=== PATIENT | female | born 1980 | race Caucasian/White ===

== ENCOUNTER 2020-06-29 16:50 | Emergency (ER) | payer OTHER, MEDICARE, MEDICAID, SELFPAY ==
[2020-06-29 17:06] VITALS: BP 157/100; PULSE 120; RESP 16; TEMP 36.7; O2SAT 99; BMI 31.8
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
== END 2020-06-29 18:12 | disposition home or self-care (01) ==
PROVIDERS: Emergency Provider Internal Medicine; PCP Internal Medicine
DX: S40.021A Contusion of right upper arm, initial encounter (principal); S70.12XA Contusion of left thigh, initial encounter; V49.49XA Driver injured in collision with other motor vehicles in traffic accident, initial encounter; Y93.89 Activity, other specified; Y92.411 Interstate highway as the place of occurrence of the external cause; Y99.9 Unspecified external cause status
CPT/HCPCS: 99282; 99284

== ENCOUNTER 2022-02-10 11:30 | Outpatient (RCR) | payer MEDICARE, MEDICAID, SELFPAY ==
[2022-01-18 12:27] VITALS: BP 110/82; PULSE 80
[2022-01-18 12:28] VITALS: BMI 32.8
--- NOTE | 2022-01-18 13:12 | P.HPPSP_ITS ---
HPI Date of Service: 01/18/22 Chief Complaint: bipolar,PTSD Sources of Information: patient interviewed, chart reviewed and crisis/core team assessment reviewed HPI Narrative: Patient is a 41 year old female who carries diagnosis of Bipolar disorder and PTSD who presents to [facility] for worsening depression and suicidal ideation. She reports that symptoms started to worsen over the last two years and within the last month thoughts of not being alive have increased. She denies having a plan or intent to end her life, and is bothered by these recurrent thoughts. She has completed [facility] in the past and has found it supportive and helpful. She identifies the pandemic as adding to depression due to limited opportunities for support. Several losses over the last year. She reports irritability, tearfulness, decreased energy/motivation and anhedonia as main symptoms. She is engaged with providers --and is seen weekly for therapy No recent changes to medication regimen and does not wish to change medications October had labs completed including TSH and lithium level. Last appt with psychiatric provider was one week ago. Reviewed other medications and she reports that Humira was started withing the last year and she discontinued her oral contraceptive a month ago I just didn't like it . Unclear what OC she was taking, denies any changed in mood (worse or improved) since stopping it. 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 working at, but has found it increasingly difficult to be present/fulfill her obligations Patient identifies goals for partial admission as get grounded and seek support Medical Evaluation Reviewed: No (lab results pending) [facility] Medical History (Updated 01/18/22 @ 20:21 by Cornelia Goodwin CNP) Asthma Bipolar 2 disorder History of skin cancer Hypothyroidism Psoriasis Diagnostics Vital Signs (24Hr): Vital Signs - 24 hr 01/18/22 12:27 Pulse Rate 80 Blood Pressure 110/82 BMI result Body Mass Index 32.8 Meds/Allergies Meds Home Medications Medication Instructions Recorded Confirmed Type adalimumab 40 mg/0.4 mL 40 mg subcut Q2W 01/18/22 01/18/22 History subcutaneous pen kit (Humira(CF) Pen) levothyroxine 100 mcg tablet 1 tab PO DAILY 01/18/22 01/18/22 History lithium carbonate 300 mg 2 tab PO BID 01/18/22 01/18/22 History tablet,extended release lorazepam 0.5 mg tablet 1 tab PO BID PRN Anxiety 01/18/22 01/18/22 History montelukast 10 mg tablet 1 tab PO DAILY 01/18/22 01/18/22 History quetiapine 400 mg tablet,extended 2 tab PO QPM 01/18/22 01/18/22 History release 24 hr Allergies Allergies Allergy/AdvReac Type Severity Reaction Status Date / Time lamotrigine [From LAMICTAL] Allergy Severe rash Unverified 11/06/19 17:01 permethrin [From ELIMITE] Allergy Mild RASH Unverified 11/06/19 17:01 From AUGMENTIN AdvReac Unknown C-DIFF Uncoded 11/06/19 17:01 From Augmentin AdvReac Unknown C-DIFF Uncoded 11/06/19 17:01 Mental Status Exam Mental Status Exam Patient Appearance: Well Grooomed and Appropriate Patient Orientation: Person, Place, Time and Situation Level of Consciousness: Awake and Appropriate Patient Behavior: Cooperative and Crying Mood Description: Sad Affect Description: Sad Thought Content: positive for Suicidal Ideation (passive thoughts) Depressive Symptoms: Increased Anxiety, Increased Irritability, Crying Spells, Sleeping More Than Usual, Loss of Int. in Activity, Thoughts of /Suicide and Loss of Energy Judgement: Good Assessment & Plan Assessment & Plan (1) Bipolar 2 disorder, major depressive episode: Status: Acute Code(s): F31.81 - Bipolar II disorder Assessment and Plan: * no changes to medication regimen (per patient request) * discussed higher level of care secondary to increasing thoughts of not being alive, patient declines and states that she wishes to work through these feelings here. Identified her jobs and cat as protective factors. Denies any plans to harm herself. * discussed TMS as an option for depressive sx--patient will review literature * follow up PRN Certification I certify that partial hospital treatment is medically necessary due to the symptoms and problems resulting from the patient's mental illness and the failure to treat the patient at the partial hospital level of care would likely result in the patient requiring inpatient psychiatric care which could not be prevented at a less intensive level of care.
--- NOTE | 2022-01-20 10:03 | HO.PHPIOP ---
The clients case was opened in treatment team
[2022-01-20 16:03] LABS: Amphetamine Screen Urine Not Detected (Not Detect); Barbiturates, Urine Not Detected (Not Detect); Benzodiazepines Screen Urine Not Detected (Not Detect); Cannabinoid Screen Urine POSITIVE (Not Detect); Cocaine Screen Urine Not Detected (Not Detect); Fentanyl, urine Not Detected (Not Detect); Opiate Screen Urine Not Detected (Not Detect); Phencyclidine Screen Urine Not Detected (Not Detect)
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
--- NOTE | 2022-01-26 15:39 | HO.PHPPROGNO ---
Subjective Subjective Date of Service: 01/26/22 Reason For Visit: bipolar,PTSD Medical Problems Affecting Mental Status: No Interim History: Describes mood as struggling, depressed . Some passive SI, no intent/plan at this time. States she feels the SI creeping back in . Tearful. Medication Compliance: Yes Side effects from medications: No Attending Groups: Yes Review of Systems Acute medical concerns: No Medical Review of Systems: unchanged Review of Systems Review of Systems Yes all other systems are reviewed and are negative Constitutional: Reports no additional constitutional complaints Mental Status Exam Mental Status Exam Narrative: NAD Patient Appearance: Appropriate Patient Orientation: Person, Place, Time and Situation Level of Consciousness: Awake and Appropriate Patient Behavior: Cooperative and Crying Mood Description: Depressed Affect Description: Depressed Patient Cognition Impaired: No Ability to Follow Directions: Good Speech Pattern: Clear Memory Description: Intact Hallucinations: None Delusions: Not Present Thought Process: Intact Thought Content: positive for Suicidal Ideation (passive, no intent/plan) Depressive Symptoms: Increased Anxiety, Increased Irritability, Crying Spells, Sleeping More Than Usual, Loss of Int. in Activity, Unhappiness, Thoughts of /Suicide and Loss of Energy Judgement: Fair Diagnostics Vital Signs (24Hr): BMI result Body Mass Index 32.8 Assessment & Plan Assessment & Plan (1) Bipolar 2 disorder, major depressive episode: Status: Acute Code(s): F31.81 - Bipolar II disorder Assessment and Plan: Describes mood as struggling, depressed . Some passive SI, no intent/plan at this time. States she feels the SI creeping back in . Finding groups difficult but helpful. Discussed SI, possibility of higher level of care. She stated that she feels safe, does not need respite or inpatient level at this time. She does have crisis text line [id number], as well as call 9. Eating eat for crisis. She also has [facility] crisis number. Patient states she believes this is mostly processing emotions at this time, which she is trying to accomplish in groups. She is satisfied with current medication regimen, no changes. Plan 1. Continue with current [facility] plan of care. 2. Continue with current medication regimen as prescribed by outpatient provider. 3. Follow-up as per protocol. Patient educated on: diagnosis, medication risk/benefits and therapeutic strategies Informed Consent: understands Reason for contiued partial hosp. stay Substantial Risk for: harm to self, inability to function and rapid decompensation Certification I certify that partial hospital treatment is medically necessary due to the symptoms and problems resulting from the patient's mental illness and the failure to treat the patient at the partial hospital level of care would likely result in the patient requiring inpatient psychiatric care which could not be prevented at a less intensive level of care. I spent minutes with the patient and/or on the patient floor today, greater than?50% of which was spent counseling/coordinating care. Discharge Plan Discharge Attending provider: Tomás Noriega Medications: No Action lithium carbonate 300 mg tablet extended release 2 tab PO BID levothyroxine 100 mcg tablet 1 tab PO DAILY lorazepam 0.5 mg tablet 1 tab PO BID PRN (Reason: Anxiety) montelukast 10 mg tablet 1 tab PO DAILY quetiapine 400 mg tablet extended release 24 hr 2 tab PO QPM Juan Pablo(CF) Pen 40 mg/0.4 mL pen injector kit 40 mg subcut Q2W
--- NOTE | 2022-02-02 11:56 | PC.NURSE ---
Patient reporting increased anxiety with chest pain. Patient reports she has had chest pain in the past with anxiety. No SOB, no diaphoresis. BP 118/80 P 96. Patient stated she forgot to take her Ativan this morning and stated she brought it with her just in case she needed it. Patient did not want to go to the ER to f/u. She took her Ativan stating she wanted to see if this worked and wanted to go eat lunch. Stated she is having an off day today mental health [facility]. Rhina Ogden NP is aware.
--- NOTE | 2022-02-02 12:06 | PC.NURSE ---
Checked on Crystal, she was eating lunch. Stated she, knows it is anxiety as she has had this before. Stated again she is having an off day and has felt this all day today. Stated she is feeling some chest pressure and pointed to upper left side of chest . Did not appear to be in any distress. Does not want to go to the ER.
--- NOTE | 2022-02-03 14:54 | HO.PHPPROGNO ---
Subjective Subjective Date of Service: 02/03/22 Reason For Visit: bipolar,PTSD Medical Problems Affecting Mental Status: No Interim History: Patient reports she felt she was doing well, past several days feeling overwhelmed again. Passive SI, no intent or plan. Visiting friend this evening, whose dog has recently been put to sleep. Patient since dissipating this to be difficult, as she was close to the dog. Medication Compliance: Yes Side effects from medications: No Attending Groups: Yes Review of Systems Acute medical concerns: No Medical Review of Systems: unchanged Review of Systems Review of Systems Yes all other systems are reviewed and are negative Constitutional: Reports no additional constitutional complaints Mental Status Exam Mental Status Exam Narrative: NAD Patient Appearance: Appropriate Patient Orientation: Person, Place, Time and Situation Level of Consciousness: Awake and Appropriate Patient Behavior: Appropriate and Cooperative Mood Description: Depressed Affect Description: Depressed Patient Cognition Impaired: No Ability to Follow Directions: Good Speech Pattern: Clear Memory Description: Intact Hallucinations: None Delusions: Not Present Thought Process: Intact Thought Content: positive for Suicidal Ideation (passive, no intent/plan) Depressive Symptoms: Increased Anxiety, Crying Spells, Loss of Int. in Activity and Thoughts of /Suicide Judgement: Fair Diagnostics Vital Signs (24Hr): BMI result Body Mass Index 32.8 Assessment & Plan Assessment & Plan (1) Bipolar 2 disorder, major depressive episode: Status: Acute Code(s): F31.81 - Bipolar II disorder Assessment and Plan: Patient reports she felt she was doing well, past several days feeling overwhelmed again. Passive SI, no intent or plan. Feels safe. Sleep good, appetite good. Visiting friend this evening, whose dog has recently been put to sleep. Patient since dissipating this to be difficult, as she was close to the dog. Trying to utilize grounding techniques, coping skills. Discussed current medications. patient satisfied with current meds / doses, no changes. Feels that alot of things have been coming up for me , and that she wants to process them, via therapy. Patient had several medication questions, 1 regarding timing of level thyroxine verses a.m. lithium dose. She states she was told to take each medication at a specific time. This proposal lead writer advised her to reach out to her psychiatric provider, as it is unclear why each medication was ordered at a specific time a day. Patient questions whether she may have ADHD, would like to discuss possible medications. Patient does not carry a diagnosis in history or presence of ADHD. Patient instructed to discuss this with outpatient providers. We did discuss several medications, including Wellbutrin and Strattera. However, patient has had manic episodes when prescribed antidepressants in the past. Plan 1. Continue with current [facility] plan of care. 2. Continue with current medication regimen. 3. Follow-up as per protocol. Patient educated on: diagnosis, medication risk/benefits and therapeutic strategies Informed Consent: understands Certification I certify that partial hospital treatment is medically necessary due to the symptoms and problems resulting from the patient's mental illness and the failure to treat the patient at the partial hospital level of care would likely result in the patient requiring inpatient psychiatric care which could not be prevented at a less intensive level of care. Total time managing care of this patient today __20__ minutes. Discharge Plan Discharge Attending provider: Tomás Noriega Medications: No Action lithium carbonate 300 mg tablet extended release 2 tab PO BID levothyroxine 100 mcg tablet 1 tab PO DAILY lorazepam 0.5 mg tablet 1 tab PO BID PRN (Reason: Anxiety) montelukast 10 mg tablet 1 tab PO DAILY quetiapine 400 mg tablet extended release 24 hr 2 tab PO QPM Humira(CF) Pen 40 mg/0.4 mL pen injector kit 40 mg subcut Q2W
--- NOTE | 2022-02-10 15:15 | HO.PHPPROGNO ---
Subjective Subjective Date of Service: 02/10/22 Reason For Visit: bipolar,PTSD Guardianship: No Medical Problems Affecting Mental Status: No Interim History: Patient describes mood as ?could be better, it could be worse ?. Reports that she is struggling to get through the holiday weekend. No SI, reports that she feels safe. Questions whether she may possibly have ADHD. Medication Compliance: Yes Side effects from medications: No Attending Groups: Yes Review of Systems Acute medical concerns: No Medical Review of Systems: unchanged Review of Systems Review of Systems Yes all other systems are reviewed and are negative Constitutional: Reports no additional constitutional complaints Mental Status Exam Mental Status Exam Narrative: NAD Patient Appearance: Appropriate Patient Orientation: Person, Place, Time and Situation Level of Consciousness: Awake and Appropriate Patient Behavior: Appropriate and Cooperative Mood Description: Depressed Affect Description: Depressed and Flat Patient Cognition Impaired: No Ability to Follow Directions: Good Speech Pattern: Clear Memory Description: Intact Hallucinations: None Delusions: Not Present Thought Process: Intact Depressive Symptoms: Increased Anxiety and Loss of Int. in Activity Judgement: Good Diagnostics Vital Signs (24Hr): BMI result Body Mass Index 32.8 Assessment & Plan Assessment & Plan (1) Bipolar 2 disorder, major depressive episode: Status: Acute Code(s): F31.81 - Bipolar II disorder Assessment and Plan: Patient has found program helpful. However, she states she continues with depression, struggling with holiday weekend. Has plans to spend [place] with family. No SI, no safety concerns. Questions whether she may have ADHD, requested to discuss diagnosed and medications. It was explained that this would be appropriate for outpatient setting, as today is her day. She was encouraged to write down her symptoms of concern regarding ADD/ADHD, intake them with her to next outpatient appointment. She is satisfied with current medication regimen, and plans to continue. No refills needed. Plan 1. Patient appears stable for discharge from [facility] at this time. 2. Patient to follow-up with outpatient provider going forward. Patient educated on: diagnosis, medication risk/benefits and therapeutic strategies Informed Consent: understands Reason for contiued partial hosp. stay Substantial Risk for: stable for discharge Certification I certify that partial hospital treatment is medically necessary due to the symptoms and problems resulting from the patient's mental illness and the failure to treat the patient at the partial hospital level of care would likely result in the patient requiring inpatient psychiatric care which could not be prevented at a less intensive level of care. Total time managing care of this patient today __20__ minutes. Discharge Plan Discharge Attending provider: Tomás Noriega Medications: No Action lithium carbonate 300 mg tablet extended release 2 tab PO BID levothyroxine 100 mcg tablet 1 tab PO DAILY lorazepam 0.5 mg tablet 1 tab PO BID PRN (Reason: Anxiety) montelukast 10 mg tablet 1 tab PO DAILY quetiapine 400 mg tablet extended release 24 hr 2 tab PO QPM Humira(CF) Pen 40 mg/0.4 mL pen injector kit 40 mg subcut Q2W Stand Alone Forms: Patient Portal Discharge page Patient Education: Bipolar Disorder (DC)
== END 2022-02-10 23:59 | disposition home or self-care (01) ==
LOC: HO.PHPA 11:30
PROVIDERS: Nurse Practitioner Psychiatric/Mental Health; Visit Provider Psychiatry & Neurology Psychiatry
DX: F31.81 Bipolar II disorder (principal); Z79.899 Other long term (current) drug therapy
CPT/HCPCS: 80307; 90853

== ENCOUNTER 2023-05-03 07:28 | Outpatient (REF) | payer MEDICARE, MEDICAID, SELFPAY ==
--- NOTE | 2023-05-03 | ECG_ITS ---
Test Reason : QTC CHECK Blood Pressure : / mmHG Vent. Rate : 101 BPM Atrial Rate : 101 BPM P-R Int : 142 ms QRS Dur : 084 ms QT Int : 328 ms P-R-T Axes : 070 060 063 degrees QTc Int : 425 ms Sinus tachycardia Nonspecific T wave abnormality Abnormal ECG When compared with ECG of 29-OCT-2011 11:33, Premature ventricular complexes are no longer Present ST no longer depressed in Anterior leads Nonspecific T wave abnormality has replaced inverted T waves in Inferior leads Nonspecific T wave abnormality, worse in Lateral leads Referred By: Dee Griffin Electronically Signed By:MANDY PADILLA MD
[2023-05-03 07:44] LABS: MANUAL DIFF FLAG NO
[2023-05-03 08:08] LABS: Basophils Absolute Auto 0.1 X10*3/uL (0.0-0.2); Basophils Percent Auto 0.8 % (0-2); Eosinophils Absolute Auto 0.5 X10*3/uL (0.0-0.4); Eosinophils Percent Auto 6.1 % (0-4); Hematocrit 40.7 % (37.0-47.0); Hemoglobin 13.7 g/dl (12.0-16.0); Imm Gran Abs Auto 0.02 X10*3/uL (0.00-0.03); Imm Gran Pct Auto 0.2 % (0.0-0.4); Lymphocytes Absolute Auto 3.5 X10*3/uL (1.2-4.9); Lymphocytes Percent Auto 39.5 % (20-40); Mean Corpuscular HGB Conc 33.7 g/dl (31.0-35.0); Mean Corpuscular Hemoglobin 31.4 pg (27.0-33.0); Mean Corpuscular Volume 93.3 fL (80.0-98.0); Mean Platelet Volume 10.1 fL (9.4-12.3); Monocytes Absolute Auto 0.4 X10*3/uL (0.1-1.2); Neutrophils Absolute Auto 4.3 x10*3/uL (2.0-8.3); Neutrophils Percent Auto 48.4 % (45-73); Platelet Count 356 X10*3/uL (160-400); Red Blood Count 4.36 X10*6/uL (4.20-5.50); Red Cell Distribution Width 12.5 % (11.0-16.0); White Blood Count 8.9 X10*3/uL (4.8-10.8)
[2023-05-03 08:15] LABS: Estimated Average Glucose 94 mg/dL; Hemoglobin A1c % 4.9 % (<6.0)
[2023-05-03 08:21] LABS: Lithium 0.53 mmol/L (0.60-1.20)
[2023-05-03 08:41] LABS: Alanine Aminotransferase 14 U/L (0-31); Albumin Level 4.1 g/dL (3.5-5.0); Alkaline Phosphatase 75 U/L (39-117); Anion Gap 10 (12-20); Aspartate Amino Transferase 17 U/L (5-31); Bilirubin Total 0.3 mg/dL (0.0-1.0); Blood Urea Nitrogen 18 mg/dL (9-16); Calcium 9.1 mg/dL (8.4-10.2); Carbon Dioxide 22 mmol/L (22-29); Chloride 111 mmol/L (96-108); Cholesterol 168 mg/dL (<200); Estimated Glomerular Filt Rate > 60; Glucose Random 103 mg/dL (60-115); HDL Cholesterol 51 mg/dL (>40); LDL Cholesterol Calculated 97 mg/dL (<100); Potassium 3.4 mmol/L (3.3-5.1); Sodium 140 mmol/L (135-145); Total Protein 7.6 g/dL (6.5-8.0); Triglycerides 103 mg/dL (<150)
[2023-05-03 08:50] LABS: Free T4 (Free Thyroxine) 0.85 ng/dL (0.71-1.85); Thyroid Stimulating Hormone 2.69 uIU/mL (0.32-4.0)
[2023-05-03 12:44] LABS: Vitamin B12 239 pg/mL (200-900)
== END 2023-05-03 07:29 | disposition home or self-care (01) ==
LOC: HO.LAB 07:28
PROVIDERS: Visit Provider Psychiatry & Neurology Psychiatry
DX: F31.81 Bipolar II disorder (principal); F43.10 Post-traumatic stress disorder, unspecified; F41.3 Other mixed anxiety disorders
CPT/HCPCS: 36415; 80053; 80061; 80178; 82607; 83036; 84439; 84443; 85025; 93005

== ENCOUNTER → 2023-05-03 07:49 | Outpatient (BNV) | payer MEDICARE, MEDICAID, SELFPAY | PROVIDERS: Visit Provider Internal Medicine Cardiovascular Disease | DX: R00.0 Tachycardia, unspecified (principal) | CPT/HCPCS: 93010 ==

== ENCOUNTER 2023-05-11 13:00 | Outpatient (RCR) | payer MEDICARE, MEDICAID, SELFPAY ==
[2023-04-30 13:06] VITALS: BP 120/90; PULSE 109; TEMP 37.2
[2023-04-30 13:10] VITALS: BMI 30.5
--- NOTE | 2023-04-30 14:12 | PC.ADMIT ---
Patient is a 43 year old single female who self referred to PHP recommended by her outpatient therapist d/t increased anxiety, depression with SI, no plan or intent, and is preoccupied with thoughts she is going to d/t new medical issues. Reports recent dx of tachycardia and reports false positive hepatitis test. She also stated she may have some kidney issues. In addition, she stopped taking Vitamin D 50,000 units weekly up until 2 weeks ago d/t high vitamin D levels. She has a f/u appointment with her PCP on 05/17/23. Patient reports she is worried something bad will happen to her medically. Fears she has blood clots and is going to . Patient stated, I'm trying to take care of my health because everything is not going right . Patient is alert and oriented x4. Calm and cooperative. Presented with depressed mood and anxious affect. When asked about SI she stated, Little struggles, It's complicated. No plan or intent. Patient does not want to . Worried about her health issues. Patient stated she works on [employer] to distract her thoughts. Medications reconciled with patient and patient's pharmacy. She reports taking medications as prescribed. Patient has history of 10-15 inpatient level of care hospitalizations and has attended PHP several times in the past.
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
--- NOTE | 2023-05-01 16:30 | HO.PHP ---
Bleach Supervisor checked in with pt after the Wrap-up group, after pt checked in as having SI with a plan. Pt stated she experiences thoughts of SI with a plan but could not identify a clear plan. The plan changes, states she gets fleeting thoughts with a plan depending her depression level. Pt reports she does not have intent and does not want to . Pt shared some of her recent health scares and feeling afraid of the results to test recently done. Pt states SI is not a normal occurrence. States she does not want to feel this way. Identified several supports including her mother who she can talk to and get support from during medical appts. Pt is future-oriented and plans to reach out to her therapist and continue to get support from the zoom support group she attends weekly..
--- NOTE | 2023-05-03 16:14 | HO.PHP ---
[facility] staff member met with Crystal due to her not being clear around the 5th question in group three around if she has any SI, plan or intent. Crystal informed the clinician that she would like to go home. PHP staff disclosed that she would like to further assess the situation to see if she is safe enough to leave for the day. Crystal presented as tearful, hopeless, and labile. Crystal was not being clear around if she had SI, plan or intent when it was directly ask, in which she was making gestures around putting a gun to her head and stating im going to blow my head off. PHP staff member explored with Crystal if she has access to a gun. Crystal expressed that she does not but does not feel safe. PHP staff member offered to go down with her to get evaluated. Crystal expressed that she doesn't need to get evaluated by continued to express concerns and not be clear around what her intent is. PHP staff member reached out to the team via [employer] connect to ask for support from the provider to further assess safety. [facility] nurse had then came into the room and explored safety with Crystal, in which she asked Crystal if she has a plan or intent to kill herself today. Crystal disclosed no. Crystal shared that the group is also triggering for her. Raeann encouraged Crystal to continue to work the program because she knows from previous enrollment in program she felt similarly when starting the program. Raeann talked with Crystal about her medical concerns and suggested that she meets with the doctor so that she is able to be more present. Crystal was in agreement. Raeann left but asked the clinician to stay with her because she was uncertain to if Crystal would take off. [facility] staff Olga then entered the room and provided support to Crystal. Crystal was able to regulate with the support of both clinicians and return to group four. Crystal was expressing concerns around SI but without a plan or intent by the end of the conversation. Crystal will be further assessed by the provider here prior to her leaving program for the day.
--- NOTE | 2023-05-03 16:36 | HO.PHP ---
Client's case has been opened and reviewed in treatment team.
--- NOTE | 2023-05-03 22:30 | P.PNPSP_ITS ---
Subjective Subjective Date of Service: 05/03/23 Reason For Visit: bipolar,PTSD Interim History: I'm having a hard day Patient emotionally dysregulated, mostly tearful, anxious, but more redirectable with supportive approach. She is not sure why she is having a bad day, says she had bloodwork done this morning and maybe that is what got her upset, but then denies there were any problems. I'm just struggling with everything all the time . Despite this she says she is glad she is at the program, it gives her a place to come and feels like everyone is being supportive and is hoping something will help. She notes that she had been feeling suicidal at home and just wasn't feeling well. Worrying about her health is a trigger for her. She says she has other triggers but cant think of them at the moment. She describes getting stuck alot , and getting overwhelmed and lost in yg big picture rather than breaking down the problems in to smaller parts or steps. She finds she is at a place where she gets overwhlmed with mundane tasks, and often cant even manage basic self care. It's like there;s too many things to do and I cant figure out what I need to do . She suggests that this (cognitive problems) causes me to feel overwhelmed and then I get depressed and more overwhelmed which leads to suicidal thoughts, karen I cant keep living like this . She reports that her living space and bedroom are a mess and items and clothes are in disarray I cant seem to take care of things...it's like a messy room is like a messy head . I ask about head injuries, or any incidents that may have contributed to her cognitive problems, but she she indicates it's been like this for years . She notes that she once had a friend that helped her clean her room (this was maybe 10 years ago she says). She notes that she felt so mch better, says that living in a cleaned up and organized area improved her mood and she didnt feel depressed, however she said she it didnt imrpove her functioning, and eventually the mess returned as she coudl not figure out how to maintain. These are clearly long standing struggles. She does not believe she has been diagnosed with ADHD but then recalls that she has had a therapist ask her about this. She does not believe she has ever been tested for ADHD. She is still reluctant to make any changes to medications, but did tolerate some conversation around medications today, which was better than the other day. Given that patient seems more relaxed and has been conversing with this medical technical writer for a while now, I inquire if she would be open to taking a cognitive test, which she was agreeable to. She put forth consistent effort, and although was tempted to ask questions or look for further guidance (was allowed a 2nd attempt at calculations which rendered a 1/3 score - technically she shold have been scored 0/3 after failing first attempt) but otherwise was redirectable to continue to work on her own at puzzles/tasks even when I was not able to help further she persevered. She spent a total >10 min on the test, scoring 19/30 demonstrating moderate impairment, losing points in calculations, language, delayed recall, visuospatial tracking puzzle, (MoCA to be scanned to chart) Medication Compliance: Yes Side effects from medications: No Attending Groups: Yes Review of Systems Acute medical concerns: No Review of Systems: endorses occasional racing heartbeat, palpitations, denies any currently. is on metoprolol Mental Status Exam Mental Status Exam Narrative: Alert, oriented to self and place, mildly distressed due to feeling emotionally overwhelmed and confused. Improved slightly over course of discussion, dysregulation limited but adequate level of cooperation and engagement. Eye contact intermittent. Mood anxious, affect anxious, tearful, mood congruent. S peech normal. Thought process scattered but coherent. Thought content related to stressors,+cognitive and executive dysfunction, +distractible, +helplessness, transient hopelessness and passive SI without intention or plan to give up on life. Denies thoughts to harm self or others.? No aggressive ideation or HI. No paranoia or delusional content elicited. Denies any AH, VH, TH. Short term and detention memory impairment appreciated, Insight and judgment impaired. Diagnostics Vital Signs (24Hr): BMI result Body Mass Index 30.5 Assessment & Plan Assessment & Plan (1) Bipolar 2 disorder, major depressive episode: Status: Acute Code(s): F31.81 - Bipolar II disorder (2) Post traumatic stress disorder (PTSD): Status: Acute Code(s): F43.10 - Post-traumatic stress disorder, unspecified (3) H/O borderline personality disorder: Status: Acute Code(s): Z86.59 - Personal history of other mental and behavioral disorders (4) Bipolar 2 disorder: Status: Acute Code(s): F31.81 - Bipolar II disorder (5) Cognitive impairment: Status: Acute Code(s): R41.89 - Other symptoms and signs involving cognitive functions and awareness Assessment and Plan: mild cognitive impairment r/o neuroleptic medication side effects r/o other general medical or neurological causes, possibly medications otherwise impairment presumed to be related to concentration and attention deficits (6) Attention-deficit hyperactivity disorder, unspecified type: Qualifiers: Attention deficit-hyperactivity disorder type: predominantly inattentive Qualified Code(s): F90.0 - Attention-deficit hyperactivity disorder, predominantly inattentive type Status: Acute Code(s): F90.9 - Attention-deficit hyperactivity disorder, unspecified type Assessment and Plan: hx strongly suggestive of ADD r/o other pervasive developmental disorder (7) Other mixed anxiety disorders: Status: Acute Code(s): F41.3 - Other mixed anxiety disorders Plan mild-moderate cognitive impairment on assessment today, scored on MoCA continue regular medications for now will review lab work drawn today I encouraged patient to consider being open to med changes she is on especially high doses of lithium and Seroquel which is at maximum dose may possibly be contributing to cognitive impairment Will also order EKG to check for QTc prolongation given high doses of Seroquel UDS as indicated continue to monitor Certification I certify that partial hospital treatment is medically necessary due to the symptoms and problems resulting from the patient's mental illness and the failure to treat the patient at the partial hospital level of care would likely result in the patient requiring inpatient psychiatric care which could not be prevented at a less intensive level of care. Total time managing care of this patient today __50__ minutes. Discharge Plan Discharge Attending provider: Dee Griffin Additional Instructions: Crystal has an OP therapist, Nury Lambert, through [facility]. Crystal has a med provider, Porfirio Hearn, through [facility], in which her next scheduled appointment is May 29, 2023 at 11:30 AM. Medications: Continued lithium carbonate 300 mg tablet extended release 2 tab PO BID levothyroxine 100 mcg tablet 1 tab PO DAILY montelukast 10 mg tablet 1 tab PO DAILY quetiapine 400 mg tablet extended release 24 hr 2 tab PO QPM metoprolol succinate 25 mg Tablet Extended Release 24 Hr 25 mg PO DAILY adalimumab-adbm [Cyltezo(CF) Pen] 40 mg/0.8 mL pen injector kit 40 mg subcut Q2W memantine 7 mg capsule,sprinkle,ER 24hr 7 mg PO DAILY Qty: 30 0RF Changed clonazepam 0.5 mg tablet 0.5 mg PO DAILY PRN (Reason: severe anxiety) 30 Days Qty: 8 0RF Discontinued lorazepam 0.5 mg tablet 1 tab PO BID PRN (Reason: Anxiety) Stand Alone Forms: Patient Portal Discharge page Patient Education: Bipolar Disorder (DC) Print Language: Frisian
[2023-05-04 10:48] VITALS: BP 115/90; PULSE 103
--- NOTE | 2023-05-07 22:01 | HO.PHPPROGNO ---
Subjective Subjective Date of Service: 05/07/23 Reason For Visit: bipolar,PTSD Interim History: Patient reports having low oliveira weekend, mood is better and says she can maintain stability as long as no stressors or provocations. She says she is prone to depression and anxiety when left alone. I dont know what to do with myself if I'm alone . She says she can't follow her thoughts, they just get jumbled and said she has not been capable of reading a book or anything for a long time . When asked if she could read a paragraph, she says that's about the most I can read but I usually go back many times and reread it because I cant hold onto what im reading...it's not getting in there . She does better if in company because she is distracted, but also can become easily overstimulated as well. We discuss a trial of mementine which she was readily open to, rather than a stimulant medication given concerns I have for cardiac issues especially given my concerns about the amount of Seroquel and lithum she has been maintained on for many years. She is apprehensive about touching the medication because she feels she needs it and is afraid she wont sleep or will get overly anxious without it, and cried immediately upon talking about it. I point out that she has been struggling with emotional reactivity/lability despite being maintained (with strict adherence) endorsing never missing a day in many years (so she has no idea how she would do on a lower dose). I suggest we could try lowering the dose, even for just one night, just to make sure if it not in fact causing or contributing to cognitive impairment. Patient was agreeable to a trial, and seemed more agreeable knowing she did not have to commit to a dose change at this time. Medication Compliance: Yes Side effects from medications: No Attending Groups: Yes Diagnostics Vital Signs (24Hr): BMI result Body Mass Index 30.5 EKG EKG Comment: Ordering Physician: Dee Griffin MD Date of Service: 05/03/23 Procedure(s): ECG 12 lead EKG Accession Number(s): [id number] cc: Dee Griffin MD~ Test Reason : QTC CHECK Blood Pressure : / mmHG Vent. Rate : 101 BPM Atrial Rate : 101 BPM P-R Int : 142 ms QRS Dur : 084 ms QT Int : 328 ms P-R-T Axes : 070 060 063 degrees QTc Int : 425 ms Sinus tachycardia Nonspecific T wave abnormality Abnormal ECG When compared with ECG of 29-OCT-2011 11:33, Premature ventricular complexes are no longer Present ST no longer depressed in Anterior leads Nonspecific T wave abnormality has replaced inverted T waves in Inferior leads Nonspecific T wave abnormality, worse in Lateral leads Assessment & Plan Assessment & Plan (1) Bipolar 2 disorder, major depressive episode: Status: Acute Code(s): F31.81 - Bipolar II disorder (2) Post traumatic stress disorder (PTSD): Status: Acute Code(s): F43.10 - Post-traumatic stress disorder, unspecified (3) Cognitive impairment: Status: Acute Code(s): R41.89 - Other symptoms and signs involving cognitive functions and awareness Plan will have patient hold 200-400 mg of her usual 800 mg HS dose of Seroquel tonight to see if she can do without, and in fact see if it may be causing some of her cognitive issues i suggest taking 400 mg this evening, and if she is unable to sleep or is experiencing any agitaiton/anxiety she could add an extra 200 mg (=600mg) if unable to sleep, or does not feel this is a helpful change for now will continue at regular dose and may consider longer term reduction in dose (she is at maximum 800 mg/d) will offer clonazepam 0.5 mg qd PRN anxiety (in case she experiences any worsening of anxiety with hold dose tonight) will plan to start memantine ER 7 mg qhs, tomorrow night Patient educated on: diagnosis and medication risk/benefits Informed Consent: understands Reason for contiued partial hosp. stay Substantial Risk for: inability to function, rapid decompensation and med/psych decompensation Certification I certify that partial hospital treatment is medically necessary due to the symptoms and problems resulting from the patient's mental illness and the failure to treat the patient at the partial hospital level of care would likely result in the patient requiring inpatient psychiatric care which could not be prevented at a less intensive level of care. Telehealth Telehealth Location of provider rendering services: other (private office) Location of patient: other ([facility]) Patient Identification confirmed using: Name, : Yes Telehealth method: video Patient verbally consented to treatment: Yes Total time managing care of this patient today __30__ minutes. Discharge Plan Discharge Attending provider: Dee Griffin Additional Instructions: Crystal has an OP therapist, Nury Lambert, through [employer]. Crystal has a med provider, Porfirio Hearn, through [employer], in which her next scheduled appointment is May 29, 2023 at 11:30 AM. Medications: Continued lithium carbonate 300 mg tablet extended release 2 tab PO BID levothyroxine 100 mcg tablet 1 tab PO DAILY montelukast 10 mg tablet 1 tab PO DAILY quetiapine 400 mg tablet extended release 24 hr 2 tab PO QPM metoprolol succinate 25 mg Tablet Extended Release 24 Hr 25 mg PO DAILY adalimumab-adbm [Cyltezo(CF) Pen] 40 mg/0.8 mL pen injector kit 40 mg subcut Q2W memantine 7 mg capsule,sprinkle,ER 24hr 7 mg PO DAILY Qty: 30 0RF Changed clonazepam 0.5 mg tablet 0.5 mg PO DAILY PRN (Reason: severe anxiety) 30 Days Qty: 8 0RF Discontinued lorazepam 0.5 mg tablet 1 tab PO BID PRN (Reason: Anxiety) Stand Alone Forms: Patient Portal Discharge page Patient Education: Bipolar Disorder (DC) Print Language: French
--- NOTE | 2023-05-09 12:48 | PC.NURSE ---
Patient reports feeling nauseous and reports vomiting a small amount. She stated she was overwhelmed in group and feeling a lot of anxiety. She stated she is feeling better now. Does not want to go home as she feels this was related to anxiety. Temp is 99.3. She stated she is going to try and eat something for lunch.
--- NOTE | 2023-05-09 16:03 | HO.PHP ---
[facility] staff member followed up with Crystal due to her not being present for group three. PHP staff member assessed any safety concerns. Crystal reported no concerns around SI, plan or intent. Crystal expressed that her stomach hasn't been feeling well and thinks it is due to nerves. Crystal disclosed that she is safe and will be in attendance to program tomorrow.
--- NOTE | 2023-05-11 23:54 | P.PNPSP_ITS ---
Subjective Subjective Date of Service: 05/11/23 Reason For Visit: bipolar,PTSD Interim History: Patient seen for follow-up, anticipating discharge at the end of program today.? Reports no acute issues or concerns. She did not find cognition issues improved with lower dose of Seroquel and in fact experienced more anxiety the following day, and has since returned dose to 800 mg. Denies any adverse effects.? She is thus far tolerating mementine which we opted for over a stimulant medication given concerns for cardiac effects and potential for adverse outcomes being treated on for many years on high doses of Seroquel and lithum (800 mg Seroquel and 1200 mg Li) and there is no history that I have found or that patient has shared that seems to warrant such high doses. She denies any history of manic episodes or psychotic symptoms. She is known to [facility] staff from prior admissions over the years and this is her typical presentation - high anxiety, tearfulness and poor cognition/forgetfulness. It would still be in her best interest to work toward a lower dose at some point sooner than later, given potential for serious adverse effects. There are EKG findings that should be followed up on by her PCP. Mood is better no tearfulness or lability today.? Denies any hopelessness or SI. Denies thoughts of harming self or others at this time. Denies any aggressive ideation or HI. Denies any paranoia or AH or VH. Sleep, appetite, energy stable. Mental Status Exam Mental Status Exam Narrative: Alert, oriented to self and place. calm, pleasant. Eye contact intermittent. Mood anxious, denies feeling depressed, affect bright, mood congruent. Speech normal. Thought process scattered but coherent. Thought content related to stressors,+cognitive and executive dysfunction, +distractible, no helplessness or hopelessness. Denies any SI, intention, plan or thoguths to give up on life. Denies thoughts to harm self or others.? No aggressive ideation or HI. No paranoia or delusional content elicited. Cognition at baseline. Insight and judgment fair. but adequate. Diagnostics Vital Signs (24Hr): BMI result Body Mass Index 30.5 Assessment & Plan Assessment & Plan (1) Bipolar 2 disorder: Status: Acute Code(s): F31.81 - Bipolar II disorder (2) Cognitive impairment: Status: Acute Code(s): R41.89 - Other symptoms and signs involving cognitive functions and awareness Assessment and Plan: mild cognitive impairment r/o neuroleptic medication side effects r/o other general medical or neuroological causes otherwise impairment presumed to be related to concentration and attention deficits (3) Attention-deficit hyperactivity disorder, unspecified type: Qualifiers: Attention deficit-hyperactivity disorder type: predominantly inattentive Qualified Code(s): F90.0 - Attention-deficit hyperactivity disorder, predominantly inattentive type Status: Acute Code(s): F90.9 - Attention-deficit hyperactivity disorder, unspecified type Assessment and Plan: hx strongly suggestive of ADD r/o other pervasive developmental disorder (4) Other mixed anxiety disorders: Status: Acute Code(s): F41.3 - Other mixed anxiety disorders Plan Discharge from [facility] continue mementine ER 7 mg x 1 week, will increase dose to 14 mg next week for now will continue regular medications: Seroquel 800 mg/day and Li 1200 mg/day will defer further medication management to outpatient provider - I strongly advise patient be slowly weened down from 800 mg of Seroquel consider other mood stabilizers, DBT, we also discussed other treatment modalities including TMS, Other options may include discussing w provider referral to [facility] if memory problems have not improved with further treatment Hopefully focusing on cognitive-enhancers/treatment that improvements executive functioning, memory, attention, may lead to improved emotional regulation and stress tolerance (I suspect the cognitive issues are in fact hugely impacting her sense of well-being and likely driving a lot of distress and emotional instability) Refills sent to pharmacy Patient educated on: diagnosis, medication risk/benefits and TMS Informed Consent: understands Reason for contiued partial hosp. stay Substantial Risk for: stable for discharge Certification I certify that partial hospital treatment is medically necessary due to the symptoms and problems resulting from the patient's mental illness and the failure to treat the patient at the partial hospital level of care would likely result in the patient requiring inpatient psychiatric care which could not be prevented at a less intensive level of care. Total time managing care of this patient today _40___ minutes. Discharge Plan Discharge Attending provider: Dee Griffin Additional Instructions: Crystal has an OP therapist, Nury Lambert, through [employer]. Crystal has a med provider, Porfirio Hearn, through [employer], in which her next scheduled appointment is Jeanette 9th, 2024 at 11:30 AM. Medications: Continued lithium carbonate 300 mg tablet extended release 2 tab PO BID levothyroxine 100 mcg tablet 1 tab PO DAILY montelukast 10 mg tablet 1 tab PO DAILY quetiapine 400 mg tablet extended release 24 hr 2 tab PO QPM metoprolol succinate 25 mg Tablet Extended Release 24 Hr 25 mg PO DAILY adalimumab-adbm [Cyltezo(CF) Pen] 40 mg/0.8 mL pen injector kit 40 mg subcut Q2W memantine 7 mg capsule,sprinkle,ER 24hr 7 mg PO DAILY Qty: 30 0RF Changed clonazepam 0.5 mg tablet 0.5 mg PO DAILY PRN (Reason: severe anxiety) 30 Days Qty: 8 0RF Discontinued lorazepam 0.5 mg tablet 1 tab PO BID PRN (Reason: Anxiety) Stand Alone Forms: Patient Portal Discharge page Patient Education: Bipolar Disorder (DC) Print Language: [place]orese
== END 2023-05-11 23:59 | disposition home or self-care (01) ==
LOC: HO.PHPA 13:00
PROVIDERS: Visit Provider Psychiatry & Neurology Psychiatry
DX: F31.81 Bipolar II disorder (principal); F43.10 Post-traumatic stress disorder, unspecified; R41.89 Other symptoms and signs involving cognitive functions and awareness; F90.9 Attention-deficit hyperactivity disorder, unspecified type; F41.3 Other mixed anxiety disorders; Z86.59 Personal history of other mental and behavioral disorders
CPT/HCPCS: 90791; 90853

== ENCOUNTER 2024-05-22 07:45 | Outpatient (REF) | payer MEDICARE, MEDICAID, SELFPAY ==
--- OUTSIDE RECORDS SUMMARY | 2024-05-22 07:50 | XMS_ITS | Data Portability ---
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 [id number] Completed 201109/29/2013 IMPRESSI ON: RESOLVED WITH TX, PT TO KEEP ON PROBIOTI C FOR A FEW MORE WEEKS TO RESOTRE KERMIT TO NORMAL.; RECORDED 02/19/20 12 1:39PM BY SHI SKAGGS MA, ANNOTATI ON/ADDEN DUM Not Available [facility] 4 05:37:58 Candidal vulvovag initis [id number] Completed 200809/29/2013 RECORDED 06/19/19 09 10:27AM BY JUDIE BOTELLO, KIKAATI ON/ADDEN DUM Not Available [facility] 4 05:37:58 Cellulit is and abscess of neck 761604991 Completed 201109/29/2013 RECORDED 02/19/20 12 1:39PM BY SHI SKAGGS MA, ANNOTATI ON/ADDEN DUM Not Available [facility] 4 05:37:58 Screenin g for malignan t neoplasm of cervix Completed 201209/29/2013 RECORDED 09/25/19 13 4:19PM BY NYDIA CHRISTIANSEN MA, ANNOTATI ON/ADDEN DUM Not Available [facility] 4 05:37:58 Colitis, enteriti s and gastroen teritis presumed infectio us [id number] Completed 201109/29/2013 RECORDED 02/19/20 12 1:39PM BY SHI SKAGGS MA, ANNOTATI ON/ADDEN DUM Not Available [facility] 4 05:37:58 Conjunct ivitis [id number] Completed 201109/29/2013 RECORDED 02/19/20 12 1:39PM BY SHI SKAGGS MA, ANNOTATI ON/ADDEN DUM Not Available [facility] 4 05:37:58 Seborrhe ic dermatit is [id number] Completed 201109/29/2013 IMPRESSI ON: WITH DRY SCALP. PT REASSURE D. SHE WILL CHANGE SHAMPOOS (TRIAL OF T-GEL NEUTRAGE NA), WASH HAIR EVERY OTHER DAY. IF NEEDED SHE WILL USE PO ANTIHIST AMINES. PTS QUESTION S ANSWERED , FEELS BETTER ABOUT SXS. TO CONTACT OFFICE PRN.; RECORDED 02/19/20 12 1:39PM BY SHI SKAGGS MA, ANNOTATI ON/ADDEN DUM Not Available [facility] 4 05:37:58 History of depressi on [id number] Completed 201309/29/2013 RECORDED 06/21/19 14 2:38PM BY SHI SKAGGS MA, MELITON ON/ADDEN DUM Not Available [facility] 4 05:37:58 Diarrhea [id number] Completed 201209/29/2013 IMPRESSI ON: NEW PROBLEM, PT WILL SEE DR MARION FOR EVAL,; RECORDED 01/11/20 13 10:05AM BY SHI SKAGGS MA, KIKAATI ON/ADDEN DUM Not Available [facility] 4 05:37:58 Hearing loss [id number] Completed 201109/29/2013 RECORDED 02/19/20 12 1:39PM BY SHI SKAGGS MA, ANNOTATI ON/ADDEN DUM Not Available [facility] 4 05:37:58 Dysfunct ional uterine bleeding Completed 201109/29/2013 RECORDED 02/19/20 12 1:39PM BY SHI SKAGGS MA, ANNOTATI ON/ADDEN DUM [facility] 8 15:03:51 Dysmenor rocael [id number] Completed 201209/29/2013 IMPRESSI ON: NL EXAM PAP AND CXS TODAY; RECORDED 09/25/19 13 4:19PM BY NYDIA CHRISTIANSEN MA, ANNOTATI ON/ADDEN DUM Not Available [facility] 4 05:37:58 Dysuria [id number] Completed 201109/29/2013 RECORDED 02/19/20 12 1:39PM BY SHI SKAGGS MA, ANNOTATI ON/ADDEN DUM Not Available [facility] 4 05:37:58 Disorder of cardiova scular system [id number] Completed 201109/29/2013 RECORDED 02/19/20 12 1:39PM BY SHI SKAGGS MA, ANNOTATI ON/ADDEN DUM Not Available [facility] 4 05:37:58 Fall on or from stairs or steps Completed 201209/29/2013 RECORDED 09/25/19 13 4:19PM BY NYDIA CHRISTIANSEN MA ANNOTMANAN ON/ADDEN DUM Not Available [facility] 4 05:37:58 Family history of breast cancer [id number] Completed 201109/29/2013 IMPRESSI ON: REVIEWED [facility], TESTING NOT THOUGHT TO BE NECESSAR Y, WILL START MAMMO AT 39 AND PT TO LEARN TO DO SELF BREAST EXAM; RECORDED 02/19/20 12 1:39PM BY SHI SKAGGS MA, MELITON ON/ADDEN DUM Not Available [facility] 4 05:37:58 Influenz a vaccine needed [id number] 06 Completed 201209/29/2013 RECORDED 10/26/19 13 2:51PM BY JUDIE BOTELLO, OFFICE VISIT Not Available [facility] 4 05:37:58 Closed fracture of radius 720096210 Completed 201109/29/2013 RECORDED 02/19/20 12 1:39PM BY SHI SKAGGS MA, MELITON ON/ADDEN DUM Not Available [facility] 4 05:37:58 Adult health examinat ion Completed 201309/29/2013 IMPRESSI ON: NOT DUE FOR A PAP, BREAST EXAM TODAY, INCREASE EXERCISE ; RECORDED 06/21/19 14 2:37PM BY SHI SKAGGS MA, MELITON ON/ADDEN DUM Not Available [facility] 4 05:37:58 General examinat ion of patient Completed 200809/29/2013 IMPRESSI ON: PAP TODAY, GOING BACK TO SCHOOL; RECORDED 06/19/19 09 10:27AM BY MELITON FRENCH ON/ADDEN DUM Not Available [facility] 4 05:37:58 Well child [id number] Completed 201109/29/2013 RECORDED 02/19/20 12 1:39PM BY SHI SKAGGS MA, MELITON ON/ADDEN DUM Not Available [facility] 4 05:37:58 Ingrowin g nail 914597574 Completed 201109/29/2013 IMPRESSI ON: SOAK FOOT WARM WATER MULTIPLE TIMES A DAY PODIATRY APPT IN CASE NEEDS PARTIAL NAIL REMOVAL. SHE WILL CANCEL APPT IF BETTER.; RECORDED 02/19/20 12 1:39PM BY SHI SKAGGS MA, ANNOTATI ON/ADDEN DUM Not Available [facility] 4 05:37:58 Low back pain [id number] Completed 201309/29/2013 IMPRESSI ON: FOR MONTHS, HX OF A FEW FALLS, PT TO SET UP PT ORDER TO PT TODAY; RECORDED 06/21/19 14 2:38PM BY SHI SKAGGS MA, ANNOTATI ON/ADDEN DUM FRIEDA French [facility] 7 15:02:14 Lymphade nopathy 35493409 Completed 201109/29/2013 IMPRESSI ON: BILAT, SCALP WITH SKIN LESION CAUSING LEFT OCCIPITA L NODE INVOLVEM ENT; RECORDED 02/19/20 12 1:39PM BY SHI SKAGGS MA, ANNOTATI ON/ADDEN DUM Not Available [facility] 4 05:37:58 Malaise and fatigue [id number] Completed 201109/29/2013 IMPRESSI ON: ON MEDS BY CHERYL MASON AND IN COUNSELI NG WEEKLY; RECORDED 02/19/20 12 1:40PM BY SHI SKAGGS MA, ANNOTATI ON/ADDEN DUM Not Available [facility] 4 05:37:58 Blisters of multiple sites 455908650 Completed 201109/29/2013 RECORDED 02/19/20 12 1:39PM BY SHI SKAGGS MA, ANNOTATI ON/ADDEN DUM Not Available [facility] 4 05:37:58 Administ ration of bacteria l and viral vaccine Completed 200709/29/2013 RECORDED 01/09/20 08 12:58PM BY DEBBI COCHRAN, OFFICE VISIT Not Available [facility] 4 05:37:58 Herpetic gingivos tomatiti s [id number] Completed 201109/29/2013 IMPRESSI ON: TX WITH DENAVIR; RECORDED 02/19/20 12 1:39PM BY SHI SKAGGS MA, ANNOTATI ON/ADDEN DUM Not Available [facility] 4 05:37:58 Otalgia 07058032 Completed 201109/29/2013 IMPRESSI ON: X 3 DAYS, NO INFECTIO N, SUSPECT JAW JOINT INFLAMMA TION; RECORDED 02/19/20 12 1:40PM BY SHI SKAGGS MA, ANNOTATI ON/ADDEN DUM Not Available [facility] 4 05:37:58 Pneumoni a [id number] Completed 201109/29/2013 IMPRESSI ON: IMPROVED ON LEVAQUIN , PREDNISO NE AND INHALERS IN PT WITH ASTHMA, WILL GET REPEAT CXT [facility] IN A WEEK,; RECORDED 02/19/20 12 1:40PM BY SHI SKAGGS MA, ANNOTATI ON/ADDEN DUM Not Available [facility] 4 05:37:59 Secondar y polycyth emia [id number] Completed 201109/29/2013 IMPRESSI ON: PT SEEN YEST FOR ATYPICAL ECCHYMOT IC LESIONS. LABS DONE AND HGB TRENDING UP. TO HEM/ONC FOR FURTHER ASSESSME NT. NOT A SMOKER. CASE DISCUSSE D WITH DR. AARON Ramsay; RECORDED 02/19/20 12 1:39PM BY SHI SKAGGS MA, ANNOTATI ON/ADDEN DUM Not Available [facility] 4 05:37:59 Eruption [id number] Completed 201209/29/2013 IMPRESSI ON: FROM PICKING HER HEAD WITH NERVES, NO INFECTIO N, TREAT WITH CREAM; RECORDED 01/11/20 13 10:05AM BY SHI SKAGGS MA, ANNOTATI ON/ADDEN DUM FRIEDA French [place] [facility] 7 15:02:11 Pain in limb 14601960 Completed 201209/29/2013 IMPRESSI ON: LIKELY CONTUSIO N WILL MAKE SURE NO FRACTURE ; RECORDED 09/25/19 13 4:19PM BY NYDIA CHRISTIANSEN MA, ANNOTATI ON/ADDEN DUM Not Available [facility] 4 05:37:59 Right upper quadrant pain 342336137 Completed 201109/29/2013 IMPRESSI ON: THE ECCHYMOT IC LESIONS FOLLOW A ZOSTER LIKE PATTERN. THIS COULD BE AN ATYPICAL PRESENTA TION OF SHINGLES . WILL TREAT IN CASE IT IS THIS. WILL CHECK LABS SINCE ECCHYMOT IC AND IN RUQ. REVIEWED CAUTIONS FOR VICODIN. PT ALSO EXAMINED BY DR. APRIL COTTER CALL IF ANY WORSENIN G; RECORDED 02/19/20 12 1:39PM BY SHI SKAGGS MA, MELITON ON/ADDEN DUM Not Available [facility] 4 05:37:59 Speciali regan medical examinat ion Completed 200809/29/2013 RECORDED 06/19/19 09 10:27AM BY KIKA FRENCHATI ON/ADDEN DUM Not Available [facility] 4 05:37:59 Disorder of skin and/or subcutan eous tissue [id number] Completed 201209/29/2013 IMPRESSI ON: SKIN OF VULVA WITH 6 REDDISH LESIONS SEEMS LIKE VASCULAR LESIONS BUT WILL HAVE DERM CHECK OUT; RECORDED 09/25/19 13 4:19PM BY NYDIA CHRISTIANSEN MA, KIKAATI ON/ADDEN DUM Not Available [facility] 4 05:37:59 Sprain of shoulder and upper arm Completed 201109/29/2013 RECORDED 02/19/20 12 1:39PM BY SHI SKAGGS MA, ANNOTATI ON/ADDEN DUM Not Available [facility] 4 05:37:59 Acute tonsilli tis 86265044 Completed 201209/29/2013 IMPRESSI ON: NEG QUICK STREP; RECORDED 03/06/19 13 1:55PM BY NYDIA CHRISTIANSEN MA, ANNOTATI ON/ADDEN DUM Not Available [facility] 4 05:37:59 Urinary tract infectio us disease 09316989 Completed 200809/29/2013 RECORDED 05/30/19 09 3:02PM BY BRENDAN COCHRAN MA, KIKAATI ON/ADDEN DUM Not Available [facility] 4 05:37:59 Vaginiti s and vulvovag initis Completed 201109/29/2013 RECORDED 02/19/20 12 1:39PM BY SHI SKAGGS MA, KIKAATI ON/ADDEN DUM Not Available [facility] 4 05:37:59 Infestat ion by Sarcopte s scabiei elle hominis [id number] Completed 03/30/2016 Idalmis prajapati [facility] 7 16:11:16 Eruption [id number] Completed 03/29/2016 FRIEDA French [facility] 7 15:02:11 White blood cell count outside referenc e range 160884469 Completed 03/30/2016 Idalmis prajapati [facility] 7 16:11:34 Backache 452745222 Completed 03/30/2016 Idalmis prajapati [facility] 7 16:11:29 Tinea corporis 14861671 Completed 03/30/2016 IdalmisRey prajapati [facility] 7 16:12:07 Pain in throat 564284802 Completed 03/30/2016 IdalmisRey prajapati [facility] 7 16:11:32 Sciatica 65878075 Completed 03/30/2016 Idalmis prajapati [facility] 7 16:11:42 Low back pain 361003332 Completed 03/29/2016 FRIEDA French [facility] 7 15:02:14 Pain in lower limb 81135590 Completed 03/29/2016 FRIEDA French [facility] 7 15:01:44 Infectio n of toe 201713431 Completed 03/29/2016 FRIEDA French [facility] 7 15:02:24 Lacerati on of toe 861798658 Completed 03/29/2016 FRIEDA French [facility] 7 15:02:17 Infectio n of foot 568768699 Completed 03/29/2016 FRIEDA French, [facility] 7 15:02:28 Slurred speech 934818003 Completed 03/29/2016 FRIEDA French, [facility] 7 15:02:20 Headache 09779387 Completed 03/30/2016 Idalmis nicolas null, [facility] 7 16:11:45 Dysfunct ional uterine bleeding Active 2016 FRIEDA Goyal, [facility] 8 15:03:51 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 FRIEDA Goyal, [facility] 8 15:04:12 History of Intestin al infectio n caused by Clostrid ioides difficil e 11124849984 9101 Completed 201704/10/2023 RENUKA RAMÍREZ MD [address] [facility] [address], [facility] FRIEDA moralez, [address] , [facility] 4 08:20:32 Mild intermit tent asthma 529980001 Active 2019 Idalmis nicolas null, [facility] 0 10:09:22 Eczema 91281575 Active 2020 Judie Botello MA null, [facility] 1 15:05:27 Psoriasi s 0946727 Active 2022 Dominga Jameson null, [facility] 3 07:52:52 Irritabl e bowel syndrome with diarrhea 314238972 Active 2022 Dominga Becerraapemelissa null, [facility] 3 07:53:26 Tachycar chance 2887344 Active FRIEDA French, [facility] 4 14:41:33 Problem Notes None recorded. Procedures Surgical History Date Name Laterality Status Provider Name and Address Organization Details Recorded Time 05/16/19 25 Most Recent Mammogram completed Katharina Alvarez [facility] 05/16/2024 12:53:24 05/16/19 25 Mammogram screening completed Katharina Alvarez [facility] 05/16/2024 12:53:06 07/15/19 23 Dressing Change completed RENUKA RAMÍREZ MD [address], [address], [facility] 07/14/2022 07:44:40 06/20/19 23 Suture/Staple removal completed RENUKA RAMÍREZ MD [address], [address], [facility] 06/19/2022 10:34:36 06/17/19 23 Suture/Staple removal completed RENUKA RAMÍREZ MD [address], [address], [facility] 06/15/2022 09:30:10 12/21/19 21 Date of Last Pap Smear completed Judie Botello MA [facility] 12/22/2020 11:07:59 05/03/19 19 Mini-Cog Test completed Judie Botello MA [facility] 05/02/2018 08:44:28 07/25/19 17 Mini-Cog Test completed Judie Botello MA [facility] 07/24/2016 14:56:47 10/01/19 16 Suture/Staple removal completed Estrellita Pitt PA-C [address], [address], [facility] 10/01/2015 14:56:47 Tonsillectomy completed Shi Skaggs [facility] 09/04/2013 15:46:02 Imaging Results Imaging Date Name Status LastModified by Organization Details LastModified Time 08/14/2023 electrocardiogram completed In-Offi ce Order Internal Use Only DO Not Attach Compendium DO Not Attach Compendium, Do Not Delete/merge, [id number] 08/14/2023 12:42:32 08/13/2023 electrocardiogram completed In-Offi ce Order Internal Use Only DO Not Attach Compendium DO Not Attach Compendium, Do Not Delete/merge, [id number] 08/13/2023 15:54:01 01/02/2024 MRI, brain, w/o contrast completed [facility] [address], [place], [address], 01/06/2024 16:17:03 05/15/2024 MAMMO, screening, digital, bilateral completed [facility] [address], [place], [address], 05/15/2024 16:37:09 05/15/2024 MAMMO, screening, digital, bilateral completed [email or web address] [facility] [address] [place], [address], 05/16/2024 12:53:29 Procedure Notes None recorded. Medical Equipment None Reported. Allergies Allergen ID Allergen Name Allergen Category Reaction Reaction Severity Criticality Documentation Date Start Date Code Code System Note Provider Name and Address Organization Details Recorded Time 70633 Elimite medicatio n rash Not available Not available 10/22/2013 63172 5 RxNorm Idalmis ortiz [facility] 4 11:49:40 6664 Augmentin medicatio n diarrhea Not available Not available 09/02/20132013 59572 2 RxNorm Brendan madrigal MA [facility] 8 15:06:49 6665 No known allergy (situatio n) Not available Not available Not available Not available 09/02/20132011 67182 6003 SNOMED COMME NT: RECOR DED 11/01 10:34 AM BY SAL VARELA MA, ANNOT ATION /ADDE NDUM; Not Available [facility] 4 13:24:03 Medications Name Sig Start Date Stop Date Status Note LastModified by Organization Details LastModified Time lithium carbonate er 300 mg tbcr 08/03 completed Not Available Not Available Not Available levothyro xine sodium 50 mcg tabs 08/17 completed Not Available Not Available Not Available monteluka st sodium 10 mg tabs 08/03 completed Not Available Not Available Not Available methylpre dnisolone dose pack 4 mg tbpk 08/17 completed Not Available Not Available Not Available clonazepa m 0.5 mg tabs 08/17 completed Not Available Not Available Not Available albuterol sulfate hfa 108 mcg/act aers 08/03 completed Not Available Not Available Not Available apap/code ine tab 300-30mg 08/17 completed Not Available Not Available Not Available quetiapin e fumarate 25 mg tabs 08/17 completed Not Available Not Available Not Available levothyro xine sodium 75 mcg tabs 08/03 completed Not Available Not Available Not Available prazosin hydrochlo ride 1 mg caps 09/11 completed Not Available Not Available Not Available quetiapin e fumarate er 400 mg tb24 09/11 completed Not Available Not Available Not Available lorazepam 0.5 mg tabs 08/03 completed Not Available Not Available Not Available quetiapin e 25 mg tablet Take 1 tablet as needed by oral route for 30 days. 08/03 completed Not Available Not Available Not Available cyclobenz aprine 10 mg tablet Take 1 tablet every day by oral route at bedtime for 20 days. 2015 active Not Available Not Available Not Avai lable lamotrigi ne 150 mg tablet QD active Not Available Not Available Not Available desonide 0.05 % topical cream APPLY SPARINGL Y AND RUB GENTLY INTO THE AFFECTED AREA(S) BY TOPICAL ROUTE 2 TIMES PER DAY 10/18 completed Not Available Not Available Not Available nystatin 100,000 unit/mL oral suspensio n Take 5 mL 4 times a day by oral route. 03/29 completed Not Available Not Available Not Available clonidine HCl 0.1 mg tablet 1 po qd 06/01 completed Not Available Not Available Not Available prednison e 10 mg tablet 03/29 completed Not Available Not Available Not Available doxycycli ne hyclate 100 mg capsule Take 1 capsule twice a day by oral route for 7 days. 11/24 completed Not Available Not Available Not Available ketoconaz ole 2 % shampoo APPLY TO DRY SCALP FOR 10 MINUTES, LATHER AND FOLLOW WITH MOISTURI ZING SHAMPOO TWICE WEEKLY 01/20 completed Not Available Not Available Not Available tizanidin e 2 mg tablet Take 1 tablet as needed by oral route for 20 days. active Not Available Not Available No t Available clindamyc in HCl 300 mg capsule 1 po tid for 10 days 12/14 completed Not Available Not Available Not Available azithromy betzaida 250 mg tablet TAKE 2 TABLETS BY MOUTH TODAY, THEN TAKE 1 TABLET DAILY FOR 4 DAYS 09/28 completed Not Available Not Available Not Available ibuprofen 800 mg tablet TAKE 1 TABLET BY MOUTH 3 TIMES A DAY NEEDED 09/11 completed Not Available Not Available Not Available fluconazo le 150 mg tablet DAILY 03/08 completed RECORDED 03/13/19 13 3:49PM BY IDALMIS Ramsay MD, MEDICATI ON AUTO-EMERY CTIVATIO N; Not Available Not Available Not Available doxepin 25 mg capsule as needed active RECORDED 06/21/19 14 2:40PM BY SHI SKAGGS MA, OFFICE VISIT; Not Available Not Available Not Available valacyclo vir 1 gram tablet THREE TIMES DAILY 10/30 completed RECORDED 11/02/19 12 10:33AM BY AMARILIS PATEL, MEDICATI ON AUTO-EMERY CTIVATIO N; Not Available Not Available Not Available clarithro mycin 500 mg tablet TWO TIMES DAILY 02/28 completed RECORDED 03/06/19 13 1:54PM BY ROEL LOFTON MD, MEDICATI ON AUTO-EMERY CTIVATIO N; Not Available Not Available Not Available hydrocodo ne 5 mg-acetam inophen 325 mg tablet active Not Available Not Available Not Available prazosin 1 mg capsule 08/03 completed Not Available Not Available Not Available Dandruff Shampoo (pyrithio ne zinc) 1 % 06/24 completed RECORDED 06/25/19 10 1:45PM BY HEATH SMITH ANNOTATI ON/SLIM MANNING; Not Available Not Available Not Available fluconazo le 200 mg tablet QD 06/03 completed RECORDED 06/19/19 09 10:26AM BY CHIN DIETZ MD, MEDICATI ON AUTO-EMERY CTIVATIO N; Not Available Not Available Not Available phenazopy ridine 200 mg tablet THREE TIMES DAILY 01/16 completed RECORDED 01/17/20 10 2:06PM BY AMARILIS LAUREANO, MEDICATI ON AUTO-EMERY CTIVATIO N; Not Available Not Available Not Available prednison e 20 mg tablet TAKE 2 TABLETS BY MOUTH DAILY FOR 3 DAYS 03/24 completed Not Available Not Available Not Available clonazepa m 0.5 mg tablet TAKE 1/2 TABLET TWICE A DAY BY MOUTH active Not Available Not Available No t Available propranol ol ER 60 mg capsule,2 4 hr,extend ed release 1 po qd 04/15 completed on hold Not Available Not Available Not Available Phenergan 25 mg tablet Q 6HR/PRN 10/03 completed RECORDED 10/13/19 07 4:07PM BY KIMBER BAKER, MEDICATI ON AUTO-EMERY CTIVATIO N; Not Available Not Available Not Available fluoxetin e 10 mg tablet 03/29 completed Not Available Not Available Not Available clonazepa m 1 mg tablet UP TO TID PRN active Not Available Not Available No t Available clobetaso l 0.05 % topical cream APPLY THIN COAT TO AFFECTED AREA TWICE A DAY 12/20 completed Not Available Not Available Not Available permethri n 5 % topical cream APPLY (THOROUG HLY MASSAGE INTO SKIN FROM HEAD TO SOLES OF FEET) BY TOPICAL ROUTE ONCE LEAVE ON FOR 8-14 HR, THEN REMOVE BY THOROUGH WASHING active Not Available Not Available No t Available penicilli n V potassium 500 mg tablet 07/27 completed Not Available Not Available Not Available lithium carbonate ER 300 mg tablet,ex tended release TAKE 2 TABLETS BY MOUTH TWICE A DAY active Not Available Not Available No t Available Motrin 600 mg tablet Q 6HRS PRN PAIN 06/24 completed RECORDED 06/25/19 10 1:45PM BY HEATH SMITH, ANNOTATI ON/SLIM DUM; Not Available Not Available Not Available metronida zole 500 mg tablet TID 02/08 completed RECORDED 02/27/19 12 2:43PM BY IDALMIS Ramsay MD, MEDICATI ON AUTO-EMERY CTIVATIO N; Not Available Not Available Not Available oxcarbaze pine 300 mg tablet active Not Available Not Available No t Available acetamino phen 300 mg-codein e 30 mg tablet Take 1 tablet every 6-8 hours by oral route as needed for 3 days. 01/10 completed Not Available Not Available Not Available penciclov ir 1 % topical cream EVERY 2 HOURS WHILE AWAKE FOR4 DAYS 01/10 completed RECORDED 01/11/20 13 10:05AM BY JOSEE RAMIREZ MD, MEDICATI ON AUTO-EMERY CTIVATIO N; Not Available Not Available Not Available sulfameth oxazole 800 mg-trimet hoprim 160 mg tablet TAKE 1 TABLET BY MOUTH TWICE A DAY FOR 7 DAYS WITH FOOD AND DRINK PLENTY OF FLUIDS 12/31 completed Not Available Not Available Not Available quetiapin e 100 mg tablet AT BEDTIME 06/05 completed RECORDED 06/12/19 10 2:13PM BY ES KIM, MEDICATI ON AUTO-EMERY CTIVATIO N; Not Available Not Available Not Available triamcino lone acetonide 0.1 % topical cream Apply by topical route for 15 days. 11/27 completed Not Available Not Available Not Available lithium carbonate ER 450 mg tablet,ex tended release QD 02/18 completed RECORDED 02/19/20 12 1:46PM BY SHI SKAGGS MA, OFFICE VISIT; Not Available Not Available Not Available levothyro xine 25 mcg tablet Take 1.5 tablets every day by oral route as directed for 30 days. 07/09 completed Not Available Not Available Not Available lamotrigi ne 25 mg tablet active Not Available Not Available Not Available levothyro xine 75 mcg tablet TAKE 1 TABLET BY MOUTH EVERY DAY 10/01 completed Not Available Not Available Not Available levothyro xine 100 mcg tablet TAKE 1 TABLET BY MOUTH EVERY DAY 2024 active Not Available Not Available Not Avai lable Mobic 15 mg tablet Take 1 tablet every day by oral route for 15 days. 08/03 completed Not Available Not Available Not Available levothyro xine 88 mcg tablet TAKE 1 TABLET BY MOUTH EVERY DAY 12/23 completed Not Available Not Available Not Available ofloxacin 0.3 % ear drops INSTILL 5 DROPS INTO AFFECTED EAR(S) BY OTIC ROUTE TWICE DAILY FOR 7 DAYS 12/22 completed Not Available Not Available Not Available Fluticaso ne Propionat e (Inhal) 50 mcg/BLIST inhl powd as needed 2013 active RECORDED 06/21/19 14 3:31PM BY AMARILIS PATEL, OFFICE VISIT; Not Available Not Available Not Available amoxicill in 875 mg tablet TWO TIMES DAILY 06/27 completed RECORDED 07/19/19 14 10:38AM BY AMARILIS PATEL, MEDICATI ON AUTO-EMERY CTIVATIO N; Not Available Not Available Not Available lorazepam 0.5 mg tablet TAKE 1 TABLET BY MOUTH TWICE A DAY 12/20 completed Not Available Not Available Not Available desonide 0.05 % topical ointment active Not Available Not Available Not Available methotrex ate sodium 2.5 mg tablet TAKE 4 TABLETS (10MG) AT ONCE, ONCE WEEKLY 12/22 completed Not Available Not Available Not Available Soma 350 mg tablet Take 1 tablet 3 times a day by oral route as needed for 15 days. 11/24 completed Not Available Not Available Not Available lithium carbonate 300 mg capsule Take 3 capsules every day by oral route. 12/14 completed Not Available Not Available Not Available levothyro xine 50 mcg tablet TAKE 1 TABLET BY MOUTH EVERY DAY 01/31 completed Not Available Not Available Not Available cephalexi n 500 mg capsule TAKE 1 CAPSULE BY MOUTH 3 TIMES A DAY FOR 7 DAYS. *TAKE 2 DOSES ON THE FIRST DAY* 12/31 completed Not Available Not Available Not Available triamcino lone acetonide 0.1 % topical ointment PLEASE SEE ATTACHED FOR DETAILED DIRECTIO NS 12/22 completed Not Available Not Available Not Available nystatin 100,000 unit/gram topical cream APPLY TO THE AFFECTED AREA(S) BY TOPICAL ROUTE 2 TIMES PER DAY active Not Available Not Available No t Available polymyxin B sulfate 10,000 unit-trim ethoprim 1 mg/mL eye drops 04/27 completed Not Available Not Available Not Available fluoxetin e 10 mg capsule Take 1 capsule every day by oral route for 30 days. 03/26 completed Not Available Not Available Not Available mupirocin calcium 2 % topical cream BID 06/20 completed RECORDED 06/21/19 08 9:31AM BY KIMBER BAKER, FERNANDO ON AUTO-EMERY CTIVATIO N; Not Available Not Available Not Available omeprazol e 20 mg capsule,d elayed release Take 1 capsule every day by oral route before meals for 10 days. 09/14 completed Not Available Not Available Not Available folic acid 1 mg tablet TAKE ONE TABLET ONCE DAILY EXCEPT THE DAY YOU TAKE METHOTRE XATE 12/22 completed Not Available Not Available Not Available monteluka st 10 mg tablet TAKE 1 TABLET BY MOUTH EVERY DAY DIRECTED active Not Available Not Available No t Available mupirocin 2 % topical ointment APPLY A SMALL AMOUNT TO THE AFFECTED AREA BY TOPICAL ROUTE 3 TIMES PER DAY 10/18 completed Not Available Not Available Not Available zolpidem 5 mg tablet Take by oral route. 06/01 completed Not Available Not Available Not Available metoprolo l succinate ER 25 mg tablet,ex tended release 24 hr TAKE 1 TABLET BY MOUTH EVERY DAY active Not Available Not Available No t Available nystatin 100,000 unit/gram topical powder BID 06/24 completed RECORDED 06/25/19 10 1:45PM BY MELITON COFFEY ON/SLIM MANNING; Not Available Not Available Not Available lorazepam 1 mg tablet Take 1 tablet every day by oral route for 30 days. 12/14 completed Not Available Not Available Not Available zaleplon 5 mg capsule Take by oral route for 7 days. active Not Available Not Available No t Available fluocinon ethan 0.05 % topical solution APPLY TO THE AFFECTED AREA(S) BY TOPICAL ROUTE 2 TIMES PER DAY 01/20 completed Not Available Not Available Not Available methylpre dnisolone 4 mg tablets in a dose pack Use as directed 01/10 completed Not Available Not Available Not Available albuterol sulfate HFA 90 mcg/actua tion aerosol inhaler TAKE 1 PUFF BY MOUTH EVERY 4 TO 6 HOURS NEEDED FOR COUGH FOR 14 DAYS active Not Available Not Available No t Available Vitamin D2 1,250 mcg (50,000 unit) capsule Take 1 capsule every week by oral route for 30 days. 05/16 completed Not Available Not Available Not Available propranol ol 20 mg tablet TAKE 1 TABLET BY MOUTH TWICE A DAY active Not Available Not Available No t Available hydrocort isone 2.5 % topical ointment PLEASE SEE ATTACHED FOR DETAILED DIRECTIO NS 12/20 completed Not Available Not Available Not Available clobetaso l 0.05 % scalp solution APPLY TO THE AFFECTED SCALP AREA BY TOPICAL ROUTE 2 TIMES PER DAY IN THE MORNING AND EVENING 07/14 completed Not Available Not Available Not Available ondansetr on 4 mg disintegr ating tablet 10/18 completed Not Available Not Available Not Available lithium carbonate 300 mg tablet Take 2 tablets twice a day by oral route. 12/01 completed Not Available Not Available Not Available fluticaso ne propionat e 50 mcg/actua tion nasal spray,jacqueline pension SPRAY 2 SPRAYS INTO EACH NOSTRIL EVERY DAY 07/14 completed Not Available Not Available Not Available clotrimaz ole 1 % topical cream 2 TIMES A DAY TO AFFECTED AREA 06/08 completed RECORDED 06/19/19 09 10:26AM BY CHIN DIETZ MD, MEDICATI ON AUTO-EMERY CTIVATIO N; Not Available Not Available Not Available betametha sone dipropion ate 0.05 % lotion APPLY TO THE SCALP TWICE DAILY FOR TWO WEEKS, BREAK ONE WEEK, REPEAT 04/25 completed Not Available Not Available Not Available sertralin e 50 mg tablet Take 1 tablet every day by oral route. active Not Available Not Available No t Available risperido ne 1 mg tablet active Not Available Not Available Not Available naphazoli ne 0.025 %-phenira mine 0.3 % eye drops EACH EYE 4 TIMES DAILY NEEDED 01/20 completed RECORDED 01/25/20 13 1:38PM BY AMARILIS PATEL, MEDICATI ON AUTO-EMERY CTIVATIO N; Not Available Not Available Not Available dicyclomi ne 10 mg capsule Take 1 capsule 4 times a day by oral route as needed for 90 days. 04/25 completed Not Available Not Available Not Available lamotrigi ne 100 mg tablet active Not Available Not Available Not Available naproxen 500 mg tablet TWO TIMES DAILY 12/22 completed Not Available Not Available Not Available mometason e 0.1 % topical cream APPLY A THIN LAYER TO THE AFFECTED AREA(S) BY TOPICAL ROUTE ONCE DAILY active Not Available Not Available No t Available amoxicill in 875 mg-potass ium clavulana te 125 mg tablet BID 12/29 completed RECORDED 01/11/20 11 3:27PM BY IDALMIS Ramsay MD, MEDICATI ON AUTO-EMERY CTIVATIO N; Not Available Not Available Not Available albuterol (refill) 90 mcg/actua tion aerosol inhaler QID PRN WHEEZING 11/01 completed RECORDED 11/02/19 12 10:40AM BY JUDIE BOTELLO, OFFICE VISIT; Not Available Not Available Not Available cyclobenz aprine 5 mg tablet EVERY 8 HRS NEEDED FOR MUSCLE SPASM 06/15 completed RECORDED 06/19/19 13 2:01PM BY JUDIE BOTELLO, CHRISTIANATI ON AUTO-EMERY CTIVATIO N; Not Available Not Available Not Available aripipraz ole 5 mg tablet QD 09/17 completed RECORDED 09/18/19 10 8:54AM BY TAO JUAREZ, OFFICE VISIT;[facility] Not Available Not Available Not Available Spiriva with [employer] r 18 mcg and inhalatio n capsules active Not Available Not Available Not Available tizanidin e 2 mg capsule TAKE ONE CAPSULE BY MOUTH AT BEDTIME NEEDED 11/24 completed Not Available Not Available Not Available fluocinol one 0.01 % scalp oil and shower cap APPLY TO SCALP OVERNIGH T AND WASH OUT WITH KETOCONA ZOLE SHAMPOO THREE TIMES WEEKLY 01/20 completed Not Available Not Available Not Available sertralin e 75 mg active Not Available Not Available Not Available lithium carbonate 300 mg tabs, 2 bid 03/18 completed Not Available Not Available Not Available Flonase EACH NOSTRIL ONCE DAILY 09/16 completed RECORDED 10/24/19 12 2:51PM BY AMARILIS PATEL, MEDICATI ON AUTO-EMERY CTIVATIO N; Not Available Not Available Not Available Vicodin EVERY 6 HRS NEEDED FOR PAIN 06/05 completed RECORDED 06/06/19 13 12:19PM BY AMARILIS PATEL, OFFICE VISIT;TH IS ORDER DISCONTI NUED PER MEDI-SPA N. Not Available Not Available Not Available Mucinex D TWO TIMES DAILY, NEEDED CONGESTI ON 2013 active RECORDED 06/21/19 14 4:03PM BY AMARILIS PATEL, OFFICE VISIT; Not Available Not Available Not Available Symbicort 80 mcg-4.5 mcg/actua tion HFA aerosol inhaler BID 10/25 completed RECORDED 10/26/19 13 2:48PM BY JUDIE BOTELLO, OFFICE VISIT; Not Available Not Available Not Available cholecalc iferol (vitamin D3) 1,250 mcg (50,000 unit) capsule TAKE 1 CAPSULE BY MOUTH ONE TIME PER WEEK 04/17 completed Not Available Not Available Not Available quetiapin e ER 400 mg tablet,ex tended release 24 hr TAKE 2 TABLETS BY MOUTH IN THE EVENING active Not Available Not Available No t Available quetiapin e ER 300 mg tablet,ex tended release 24 hr Take 1 tablet every day by oral route. 07/27 completed Not Available Not Available Not Available Seroquel XR 150 mg tablet,ex tended release active Not Available Not Available Not Available Latuda 20 mg tablet active Not Available Not Available No t Available Vicodin 5 mg-300 mg tablet EVERY 6 HRS NEEDED FOR PAIN 06/15 completed RECORDED 06/19/19 13 2:01PM BY JUDIE BOTELLO, MEDICATI ON AUTO-EMERY CTIVATIO N; Not Available Not Available Not Available memantine 7 mg capsule sprinkle, extended release 24hr TAKE 1 CAPSULE BY MOUTH EVERY DAY 08/12 completed Not Available Not Available Not Available Drysol 20 % topical solution Apply 1 applicat ion every 72 hours by topical route for 30 days. 12/13 completed Not Available Not Available Not Available Humira(CF ) Pen 40 mg/0.4 mL subcutane ous kit Inject 0.4 mL every 2 weeks by sub-q route for 28 days. 04/12 completed Not Available Not Available Not Available Humira(CF ) Pen Ps-Uv-Ado l HS 80 mg/0.8 mL(1)-40 mg/0.4 mL(2)subc ut kit injects twice a month on 01/20 completed Not Available Not Available Not Available Antonia 24 Fe 1 mg-20 mcg (24)/75 mg (4) tablet TAKE 1 TABLET BY MOUTH EVERY DAY 04/05 completed Not Available Not Available Not Available Flucelvax Quad (PF) 60 mcg (15 mcg x 4)/0.5 mL IM syringe PHARMACY ADMINIST ERED 03/18 completed Not Available Not Available Not Available Cyltezo(C F) Pen 40 mg/0.8 mL subcutane ous kit 1 injction every other week active Not Available Not Available No t Available Vitals Date Recorded Body height Body mass index (BMI) Body weight Oxygen saturation Oxygen saturation in Arterial blood by Pulse oximetry Heart rate Body temperature Systolic blood pressure Diastolic blood pressure Provider Name and Address Organization Details Last Updated DateTime 4 160.02 cm 32.1 kg/m2 09140.6 2 g 98 % 98 % 93 /min 98.7 [degF] 115 mm[Hg] 72 mm[Hg] Judie Botello MA [facility] 4 14:46:23 Date Recorded Body height Body mass index (BMI) Body weight Oxygen saturation Oxygen saturation in Arterial blood by Pulse oximetry Heart rate Body temperature Systolic blood pressure Diastolic blood pressure Provider Name and Address Organization Details Last Updated DateTime 4 160.02 cm 31.9 kg/m2 94067.0 3 g 100 % 100 % 81 /min 98.2 [degF] 118 mm[Hg] 75 mm[Hg] Judie Botello MA [facility] 4 15:23:25 Date Recorded Body height Body mass index (BMI) Body weight Oxygen saturation Oxygen saturation in Arterial blood by Pulse oximetry Heart rate Body temperature Systolic blood pressure Diastolic blood pressure Provider Name and Address Organization Details Last Updated DateTime 4 160.02 cm 32.1 kg/m2 19725.9 2 g 98 % 98 % 87 /min 98.2 [degF] 110 mm[Hg] 76 mm[Hg] Judie Botello MA [facility] 4 09:39:01 Date Recorded Body height Body mass index (BMI) Body weight Oxygen saturation Oxygen saturation in Arterial blood by Pulse oximetry Heart rate Body temperature Systolic blood pressure Diastolic blood pressure Provider Name and Address Organization Details Last Updated DateTime 5 160.02 cm 31.4 kg/m2 68411.9 5 g 99 % 99 % 97 /min 98.2 [degF] 122 mm[Hg] 75 mm[Hg] Judie Botello MA [facility] 5 14:46:57 Date Recorded Body height Body mass index (BMI) Body weight Heart rate Oxygen saturation Oxygen saturation in Arterial blood by Pulse oximetry Body temperature Systolic blood pressure Diastolic blood pressure Provider Name and Address Organization Details Last Updated DateTime 5 160.02 cm 31.5 kg/m2 24014.4 4 g 81 /min 98 % 98 % 98.3 [degF] 110 mm[Hg] 71 mm[Hg] Brendan madrigal [facility] 5 13:55:06 Social History Question Answer Notes LastModified by Organizat ion Details LastModified Time Tobacco Smoking Status Never Smoker Shi [email or web address] [facility] 09/04/2013 15:53:32 Do You Have An Advance Directive? No Information not available 01/20/2022 What Is Your Level Of Alcohol Consumption? None Information not available 08/27/2020 Is Blood Transfusion Acceptable In An Emergency? Yes [email or web address] Information not available 10/16/2014 What Is Your Level Of Caffeine Consumption? Occasional Seldom Information not available 08/27/2020 How Much Tobacco Do You Chew? None [email or web address] Information not available 08/04/2019 In The 14 Days Before Symptom Onset, Have You Had Close Contact With A Laboratory-confi rmed COVID-19 While That Case Was Ill? No Information not available 01/20/2022 In The 14 Days Before Symptom Onset, Have You Had Close Contact With A Person Who Is Under Investigation For COVID-19 While That Person Was Ill? No Information not available 01/20/2022 Have You Been To An Area Known To Be High Risk For COVID-19? No Information not available 01/20/2022 Are You Currently Employed? No [email or web address] Information not available 02/15/2015 What Type Of Diet Are You Following? REGULAR Eating Mostly Chicken And Fish Information not available 04/05/2022 Which Illicit Or Recreational Drugs Have You Used? Marijuana Weekly [email or web address] Information not available 09/04/2013 Do You Or Have You Ever Used E-cigarettes Or Vape? Never Used Electronic Cigarettes Information not available 01/20/2022 What Is Your Occupation? None Information not available 08/27/2020 Hard Of Hearing Or Deaf In One Or Both Ears? No Information not available 01/20/2022 Legally Blind In One Or Both Eyes? No Information not available 01/20/2022 Live Alone Or With Others? With Others Parents Information not available 01/20/2022 Do You Take Precautions To Prevent Distracted Driving? Yes [email or web address] Information not available 10/16/2014 How Often Do You Need To Have Someone Help You When You Read Instructions, Pamphlets, Or Other Written Material From Your Doctor Or Pharmacy? Sometimes [email or web address] Information not available 10/16/2014 Have You Served In The ? No Information not available 12/22/2020 Have You Or Anyone In Your Household Had Any Of The Following Symptoms In The Last 14 Days: Sore Throat, Cough, Chills, Body Aches For Unknown Reasons, Shortness Of Breath For Unknown Reasons, Loss Of Smell, Loss Of Taste, Fever At Or Greater Than 100 Degrees Fahrenheit? No [email or web address] Information not available 08/18/2019 Are You Or Anyone In Your Household A Health Care Provider Or Emergency Responder? No [email or web address] Information not available 08/18/2019 To The Best Of Your Knowledge Have You Been In Close Proximity To Any Individual Who Tested Positive For COVID-19? No [email or web address] Information not available 08/18/2019 *AWV ONLY* Are You Presently Prescribed Opioid Medication By PCP Or Specialist? If YES -Provider Assess The Benefit For Other, Non-opioid Pain Therapies Instead, Even If The Patient Does Not Have OUD But Is Possibly At Risk. No [email or web address] Information not available 12/22/2020 Have You Recently Traveled To A [facility] High Risk Area Or Gathering In The Last 10 Days? No [email or web address] Information not available 03/18/2020 What Was The Date Of Your Most Recent Tobacco Screening? 04/12/2023 [email or web address] Information not available 04/12/2023 How Many Children Do You Have? 0 Information not available 08/27/2020 What Is Your Relationship Status? Single Information not available 01/20/2022 Seat Belts Used Routinely Yes Information not available 01/20/2022 Are You Sexually Active? Yes Woman Partner [email or web address] Information not available 02/15/2015 Smoke Alarm In Home Yes Information not available 01/20/2022 At What Age Did You Start Smoking Tobacco? 0 [email or web address] Information not available 08/04/2019 Do You Or Have You Ever Used Smokeless Tobacco? Never Used Smokeless Tobacco [email or web address] Information not available 08/04/2019 How Much Tobacco Do You Smoke? No [email or web address] Information not available 08/04/2019 General Stress Level Medium Information not available 01/20/2022 Do You Use Sunscreen Routinely? Yes [email or web address] Information not available 10/16/2014 Sex: Unknown Functional Status Question Answer Note LastModified by Organizat ion Details LastModified Time Are you able to walk? [email or web address] Information not available 01/20/2022 Are you able to care for yourself? Yes [email or web address] Information not available 02/15/2015 What is your exercise level? Occasional walking 3 x week Information not available 08/27/2020 Mental Status None recorded. Family History Relationship Description Onset Age of this Age Resolved Age Notes LastModified by Organization Details LastModified Time Mother Carcinoma in situ of breast Not available 02/15 11:12:37 Maternal Grandmother Carcinoma in situ of breast [email or web address] Not available 02/15 11:12:37 Maternal Grandfather Myocardial infarction [email or web address] Not available 01/20 11:12:37 Notes:No FH of colon cancer Medical History Condition Response Coronary Artery Disease N Gout N Other N Blood Diseases N Kidney Stones N Hyperthyroidism Y Breast Cancer N mrsa exposure N Lung Disease N COPD N Depression Y Hypothyroidism N Defects or Inherited Disease N Developmental or Behavioral Disorders N Breast Problem N Anesthesia Complications N Headaches/Migraines N Anxiety Disorder Y Varicose Veins N Muscle, Joint, or Bone Problems N Obesity N Vision or Eye Problems N Arthritis N Head Injury/Concussion N Polyps N Infertility N Mental Disorder N Congenital Anomalies N Acid Reflux (GERD) N Cancer N Stroke N ADHD N Endometriosis N High Cholesterol N Liver Disease N Fibromyalgia N Headaches N Kidney Disease N Heart Problems N Ear or Hearing Problems Y Hospitalizations N Thyroid Problems N GI Problems Y Developmental Delay N Acne N Eating Disorder N Skin Problems N Anemia N Constipation N Bladder Problems N Mental Illness Y Diabetes N Ovarian Cancer N Bedwetting N Blood Transfusions N Heart Problems/Murmur N Seizures/Epilepsy N Tuberculosis N AIDS/HIV N Congestive Heart Failure (CHF) N Eczema N Abuse/Domestic Violence N Diverticulitis N Asthma Y Allergies N Reflux/GERD N Hepatitis N Heart Disease N Pulmonary Embolism N Hypertension N Chicken Pox N Autism Spectrum Disorder (ASD) N Osteoporosis N Gynecological History Statement/Question Response Date of Last Pap Smear 12/20/2020 Most Recent Mammogram 05/15/2024 Obstetrics History GPAL:G 0 P 0 0 0 0 Immunizations Vaccine Type Date Status Note Provider Nam e and Address Organization Details Recorded Time Tdap 6 [facility] 13:24:33 Influenza, split virus, quadrivalent, PF 5 completed Not Available [facility] 03/08/2019 02:22:02 pneumococcal polysaccharide PPV23 5 completed Not Available [facility] 03/08/2019 02:21:42 COVID-19, mRNA, LNP-S, PF, 30 mcg/0.3 mL dose 1 completed FRIEDA Dexter, [facility] 01/20/2022 13:24:02 COVID-19, mRNA, LNP-S, PF, 30 mcg/0.3 mL dose 1 completed FRIEDA Dexter [facility] 01/20/2022 13:24:02 COVID-19, mRNA, LNP-S, PF, 30 mcg/0.3 mL dose 1 completed FRIEDA Dexter, [facility] 01/20/2022 13:24:02 COVID-19, mRNA, LNP-S, bivalent, PF, 30 mcg/0.3 mL dose 2 completed FRIEDA Dexter, [facility] 01/20/2022 13:24:33 Td (adult), 5 Lf tetanus toxoid, preservative free, adsorbed 4 completed FRIEDA Dexter, [facility] 01/20/2022 13:24:33 Influenza, MDCK, quadrivalent, PF 0 completed FRIEDA Dexter, [facility] 01/20/2022 13:24:33 Tdap 3 completed FRIEDA French, [facility] 08/17/2022 11:37:19 Influenza, split virus, quadrivalent, PF 3 completed FRIEDA French, [facility] 04/26/2023 14:40:16 Influenza, split virus, quadrivalent, PF 6 completed Not Available [facility] 03/08/2019 02:22:04 Influenza, split virus, quadrivalent, PF 7 completed Not Available [facility] 03/08/2019 02:22:11 Influenza, split virus, quadrivalent, PF 8 completed Not Available [facility] 03/08/2019 02:22:15 Influenza, split virus, trivalent, PF 4 completed Not Available [facility] 03/08/2019 02:21:57 Influenza, split virus, quadrivalent, PF 9 completed Not Available [facility] 03/08/2019 02:22:10 Influenza, split virus, quadrivalent, PF 1 completed Idalmis prajapati, [facility] 12/22/2020 11:24:47 Meningococcal MCV4O 6 completed Not Available [facility] 09/02/2013 13:58:38 Influenza, split virus, trivalent, preservative 7 completed Not Available [facility] 09/02/2013 13:58:38 Influenza, split virus, trivalent, preservative 8 completed Not Available [facility] 09/02/2013 13:58:38 Tdap 8 completed Not Available [facility] 09/02/2013 13:58:38 Influenza, split virus, trivalent, preservative 0 completed Not Available [facility] 09/02/2013 13:58:38 Influenza, split virus, trivalent, preservative 1 completed Not Available [facility] 09/02/2013 13:58:38 Influenza, split virus, trivalent, preservative 2 completed Not Available [facility] 09/02/2013 13:58:38 influenza, seasonal, intradermal, preservative free 3 completed Not Available [facility] 09/02/2013 13:58:38 Influenza, split virus, quadrivalent, PF 2 completed Idalmis prajapati, [facility] 12/01/2021 10:15:17 Influenza, split virus, trivalent, PF 4 completed RENUKA RAMÍREZ MD [address], [address], [facility] 12/21/2023 19:00:12 Past Encounters Encounter ID Performer Location Encounter Start Date Encounter Closed Date Diagnosis/Indication Diagnosis SNOMED-CT Code Diagnosis ICD10 Code Diagnosis Note [id number] [facility] [address] [address] 09/04/2013 15:31:37 09/04/2013 17:14:27 Anxiety 43890279 Chest pain [id number] Abdominal pain [id number] [employer] [address] [facility] [place] [address] 04/06/2006 00:00:00 [id number] [employer] [address] [facility] [place] [address] 07/20/2005 00:00:00 [id number] [address] [address] [place] [address] 08/09/2005 00:00:00 [id number] [employer] [address] [address] [place] [address] 08/24/2005 00:00:00 [id number] [employer] [address] [address] [place] [address] 07/04/2006 00:00:00 [id number] [employer] [address] [place] [address] 07/11/2006 00:00:00 [id number] [employer] [address] [address] [place] [address] 09/18/2006 00:00:00 [id number] [employer]ce [address] [facility] [address] [place] [address] 12/17/2006 00:00:00 [id number] [employer] [address] [facility] [address] [place] [address] 12/24/2006 00:00:00 [id number] [employer]ce [address] [facility] [address] [place] [address] 03/20/2007 00:00:00 [id number] [employer] [address] [facility] [address] [place] [address] 06/14/2007 00:00:00 [id number] [employer] [address] [facility] [address] [place] [address] 07/04/2007 00:00:00 [id number] [employer] [address] [facility] [address] [place] [address] 01/09/2008 00:00:00 [id number] auto[employer] erce [address] [facility] [address] [place] [address] 05/29/2008 00:00:00 [id number] [employer] [address] [facility],[address] [place] [address] 06/18/2008 00:00:00 [id number] [employer] [address] [place] [address] 09/24/2008 00:00:00 [id number] [employer] [address] [place] [address] 10/05/2008 00:00:00 [id number] [employer] [address] [place] [address] 11/26/2008 00:00:00 [id number] [employer]ce [address] [place] [address] 01/13/2009 00:00:00 [id number] [employer] [address] [place] [address] 05/13/2009 00:00:00 [id number] [employer]ce [address] [facility],[address] [place] [address] 06/16/2009 00:00:00 [id number] [employer]ce [address] [facility] [address] [place] [address] 2 07/26/2009 00:00:00 [id number] [employer]ce [address] [facility],[address] [place] [address] 2 09/17/2009 00:00:00 02153 [employer]ce [address] [facility],[address] [place] [address] 2 01/05/2010 00:00:00 [id number] [employer]ce [address] [facility],[address] [place] [address] 2 01/14/2010 00:00:00 [id number] [employer] erce [address] [facility],[address] [place] [address] 2 02/17/2010 00:00:00 [id number] [employer]ce [address] [facility],[address] [place] [address] 2 06/29/2010 00:00:00 69901 auto[employer] erce [address] [facility] [address] [place] [address] 07/27/2010 00:00:00 33814 [employer] [address] [place] [address] 12/01/2010 00:00:00 21615 [employer] [address] [place] [address] 2 12/19/2010 00:00:00 76720 [employer] erce [address] [place] [address] 2 01/11/2011 00:00:00 57119 auto[employer] erce [address] [facility] [address] [place] [address] 01/18/2011 00:00:00 [id number] auto[employer] erce [address] [facility] [address] [place] [address] 2 01/24/2011 00:00:00 50410 auto[employer] erce [address] [facility] [address] [place] [address] 2 02/27/2011 00:00:00 [id number] [employer] erce [address] [facility],[address] [place] [address] 2 07/19/2011 00:00:00 06522 auto[employer]Comm erce [address] [facility],[address] [place] [address] 2 08/14/2011 00:00:00 [id number] auto[employer]Comm erce [address] [facility],[address] [place] [address] 2 08/18/2011 00:00:00 [id number] auto[employer] erce [address] [facility],[address] [place] [address] 2 10/24/2011 00:00:00 04180 auto[employer]Comm erce [address] [facility] [address] [place] [address] 2 11/02/2011 00:00:00 30715 [employer] erce [address] [facility],[address] [place] [address] 2 02/19/2012 00:00:00 76736 auto[employer] erce [address] [place] [address] 03/06/2012 00:00:00 84602 [employer] erce [address] [place] [address] 2 06/05/2012 00:00:00 83174 auto[employer] erce [address] [place] [address] 2 06/10/2012 00:00:00 44004 auto[employer] erce [address] [place] [address] 2 06/28/2012 00:00:00 [id number] autoEComm erce [address] [facility] [address] [place] [address] 2 09/24/2012 00:00:00 73611 auto[employer]Comm erce [address] [facility] [address] [place] [address] 2 10/25/2012 00:00:00 [id number] auto[employer] erce [address] [facility] [address] [place] [address] 2 01/10/2013 00:00:00 76627 auto[employer]Comm erce [address] [facility],[address] [place] [address] 2 01/24/2013 00:00:00 70619 auto[employer]Comm erce [address] [facility],[address] [place] [address] 2013 00:00:00 [id number] auto[employer]Comm erce [address] [facility],[address] [place] [address] 2 06/20/2013 00:00:00 [id number] Judie Botello [place] Main Office [address] [place] [address] 10/14/2013 14:06:23 10/14/2013 14:56:05 Infestation by Sarcoptes scabiei elle hominis [id number] call if does not improve after second treatment in a week [id number] Judie Botello [place] Main Office [address] [place] [address] 10/16/2013 13:38:05 10/16/2013 14:08:14 Asthma 132123048 well cotnrolled continue meds Bipolar I disorder 604458532 on meds and in counsleing Disorder of coccyx 34859821 healing, hx of a fall Infestatio n by Sarcoptes scabiei elle hominis [id number] did tx and laundry, pt is crying over having scabies, reasoned with her aobut a self limited event, she calmed down by the time she left and has her therapist for supprt [id number] Idalmis nicolas Main Office [address] [facility] [address] [facility] [place] [address] 10/22/2013 10:56:55 10/22/2013 11:43:54 Eruption 222299954 severe allergic reaction to elimite, pt to finish medrol dose pack, use benadryl at night adn try motrin for the pain Bipolar I disorder 898756794 on meds and in counsleing , pt is seeing ehr therapist today,she is coping better than the other night when she went to the ER nad 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 Infestatio n by Sarcoptes scabiei elle hominis [id number] pt treated herself with elimite 2 tiems a week apart, she has a reaction to the elimite. she is on the last 2 days of the medrol dose pack and doing well, in the past she had had joe with prednisone but doing better this time. [id number] Judie Botello MA Main Office [address] [facility] [address] [place] [address] 12/03/2013 08:44:24 12/03/2013 09:35:46 Bipolar I disorder 791378423 pt is feeling very depressed, states she has thoughts of suicide but has no plan, has told her family and friends and counselor how low she is feeling. Pt states very clearly she will rod and talk to someone and ask for help if she is feeling unsafe with herself, has counseling today at 1:00 and will talk to her counsleor, and will see her psychiatri st on 12/08. will return in a week and get flu shot then, did not want to complicate anything today Eruption 249675118 very faint, pt is very nervous about this being from trileptal, has been taken off the lamictal due to severe rash, [pt is now on trileptal for a few weeks. Pt is on singulair, pt will see DR Tobin her dermatolog ist in a few days to evaluate, sees therapist today. Rash is very faint and pt is rubbing it alot, derm will assess this in a few days to help if possible drug related. [id number] Idalmis Bailey nicolas Main Office [address] [address] [place] [address] 12/10/2013 16:23:48 12/10/2013 16:55:47 Needs influenza immunization 099784938 Bipolar I disorder 761059791 Patient hadher meds changed on Sunday by her prescriber and has seen her therapist since last visit 12/03. She does not feel SI/HI, mood is better. Eruption [id number] Saw kirt almonte on Sunday who prescribed cream for her rash, it is improving and pt feels better. [id number] Idalmis Bailey nicolas Main Office [address] [address] [place] [address] 06/10/2014 15:24:10 06/10/2014 16:08:41 Bipolar I disorder 352162379 on meds and feels they are helping. is working with therapist on maybe volunteeri ng. Asthma 996012984 a bit o f a flare, was put on steroids last month, continue meds. [id number] Tej Kamara Main Office [address] [address] [place] [address] 10/16/2014 10:41:58 10/16/2014 11:34:30 Bipolar I disorder 700245047 on meds and feels they are helping. is working with therapist on maybe volunteeri ng. Anxiety 53940835 Asthma 701503543 asthma is controlled . Backache 795789168 Needs infl uenza immunization 025074331 Eruption 607505939 looks like sun reaction, use otc hydrocorti sone and lotion [id number] Idalmis Bailey nicolas Main Office [address] [address] [place] [address] 02/15/2015 10:56:10 02/15/2015 11:53:33 Adult health examination 570844606 Z00.00 pap next year, will add more exercise. Bipolar I disorder 22290 6008 F31.9 on meds and feels they are helping. is working with therapist and is volunteeri . Administra tion of pneumococcal vaccine 44259146 Z23 Asthma 706426809 J45.90 9 asthma is controlled . will get pneumovax today, never had [id number] Sunni Castro Main Office [address] [facility] [address] [place] [address] 07/09/2015 09:56:30 07/09/2015 10:35:29 Pain in throat 073660343 R07.0 rapid strep is negative. Viral infection. Advised NSAIDs or tylenol, fluids and rest. [id number] Idalmis nicolas Main Office [address] [address] [place] [address] 08/16/2015 14:51:18 08/16/2015 15:18:13 Asthma 888374417 J45.909 asthma is controlled Bipolar I disorder 79294 6008 F31.9 just finished partial hospitaliz ation, continue meds nad therapy Sciatica 75855987 M54.31 into right calf, positive straight leg raise, pt to see PT Low back pain 669610290 M54.5 PT referral, flexeril for night if spasms [id number] Idalmisfish nicolas Main Office [address] [address] [place] [address] 09/09/2015 09:14:35 09/09/2015 10:18:31 Impacted cerumen 61784457 H61.23 soaked and lavaged without problems Pain in lower limb 34427 006 M79.604 spasm, pt to try soma and exercise and stretch [id number] Josee Casillas MD Main Office [address] [address] [place] [address] 09/24/2015 13:53:33 09/24/2015 15:00:06 Infection of toe 997238245 L08.9 Start Abx as directed. Dressing changes daily , apply topical Abx as well. Laceration of toe 895341 004 S91.119A Remove sutures as scheduled next week. [id number] Idalmis Bailey nicolas Main Office [address] [address] [place] [address] 09/29/2015 08:38:23 09/29/2015 09:42:03 Infection of toe 984757243 L08.9 Switch from Keflex to Bactrim DS BID for 10 days. Wound culture taken. Recheck in 3-4 days and remove sutures. [id number] Idalmis NyFrances edinburg Main Office [address] [facility] [address] [place] [address] 10/01/2015 08:45:49 10/01/2015 09:23:21 Laceration of toe 559923434 S91.119A 3 sutures removed w/o significan t discomfort . Pt. is advised to keep wound covered until full closure and scab comes off. Infection of toe 6570616 06 L08.9 Continue Bactrim DS as directed. Check on wound culture results. F/u prn. [id number] [facility] Main Office [address] [facility] [address] [place] [address] 10/21/2015 12:42:29 10/21/2015 13:28:14 Slurred speech 165015470 R47.81 I viewed her video on her phone, unclear, she denies any substances , will get US and Ct to rule out any CVA/bleed but very unlikely, if it recures pt was told to go to ER, Headache 83806910 R51 mild, only a day or 2, not there with slurred speecha dn very mild [id number] [facility] Main Office [address] [facility] [address] [place] [address] 11/25/2015 10:41:59 11/25/2015 11:44:21 Slurred speech 321280320 R47.[address] of head and carotid US Influenza vaccine needed 3347110343 106 Z23 Asthma 115357073 J45.90 9 asthma is controlled .she was followed by Eddie Haywood but she just retired, was on Brevo inhaler but stopped it. Is on singulair and proair prn. Bipolar I disorder 42566 6008 F31.9 is on meds, thinks she gained weight due to stress eating. continue meds [id number] [facility] Main Office [address] [facility] [address] [place] [address] 12/10/2015 13:49:46 12/10/2015 14:57:55 Candidiasis of mouth 20280534 B37.0 [id number] Idalmis NyFrances maria isabel Main Office [address] [facility] [address] [place] [address] 03/29/2016 15:00:02 03/29/2016 15:46:19 Asthma 025871962 J45.909 asthma is controlled . continue meds Bipolar I disorder 00827 6008 F31.9 is on meds, mood is stable, volunteeri ng which is good for her, just out of partial hospitaliz ation [id number] Idalmis NyFrances maria isabel Main Office [address] [facility] [address] [place] [address] 07/06/2016 14:52:06 07/06/2016 15:43:01 Vitamin D deficiency 31705671 E55.9 take weekly med Bipolar I disorder 09625 6008 F31.9 is on meds, mood is stable, volunteeri ng which is good for her, just out of partial hospitaliz ation [id number] Idalmis NyFrances maria isabel Main Office [address] [facility] [address] [place] [address] 07/24/2016 14:52:50 07/24/2016 15:34:41 Adult health examination 941310192 Z00.00 is exercising a lot and feels well, disappoint ed no weight loss but feels better. Change in skin lesion 39 3515794 L98.9 left arm, we will make appt with DR Tobin Asthma 640867490 J45.90 9 asthma is controlled . continue meds Bipolar I disorder 88832 6008 F31.9 is on meds, mood is stable, volunteeri ng which is good for her, in therapy and doing a voluntary day program [id number] Idalmis NyFrances maria isabel Main Office [address] [facility] [address] [place] [address] 10/30/2016 09:38:36 10/30/2016 10:12:18 Needs influenza immunization 155401290 Z23 Hypothyroidism 96019181 E03.9 pt is on meds and takes them regularly, due for recheck of level Asthma 647077471 J45.90 9 asthma is controlled . continue meds Bipolar I disorder 32591 6008 F31.9 is taking meds regularly, med provider will be changing and pt is due for a level and she will call and get an order for a level and who her next med provider will be [id number] Idalmis nicolas Main Office [address] [address] [place] [address] 11/23/2016 12:49:42 11/23/2016 13:32:00 Dysfunctional uterine bleeding 81703137 N93.8 see hx, due for pap but will refer to commercial real estate manager due to DUB, may need treatment with provera, pt with depression should tell commercial real estate manager provider this, Backache 179562135 M54.9 use motrin as needed Asthma 677774919 J45.90 9 asthma is controlled . Bipolar I disorder 36065 6008 F31.9 doing better, is on meds, in counseling , gets a lot fo katey with ruby cramer at a [employer] and a homeless [facility] [id number] Iadlmis nicolas Main Office [address] [address] [place] [address] 03/26/2017 14:50:54 03/26/2017 15:39:28 Dysfunctional uterine bleeding 16516806 N93.8 neg w/u by commercial real estate manager including USand biopsy, will ask for note, no further workup Asthma 724990149 J45.90 9 asthma is controlled . Bipolar I disorder 63950 6008 F31.9 doing very well [id number] Idalmis Bailey nicolas Main Office [address] [address] [place] [address] 05/16/2017 10:22:08 05/16/2017 11:05:23 Hypothyroidism 17251741 E03.9 off meds for 2 weeks, restart and check level in 2 months Hyperhidrosis 266262858 R61 wrote down instructio ns for pt to take 3 days in a row, then change to 2 times a week and use regular deodorant too Asthma 290826085 J45.90 9 asthma is controlled . Bipolar I disorder 16988 6008 F31.9 doing very well [id number] Josee Casillas MD Main Office [address] [address] [place] [address] 06/01/2017 15:02:22 06/01/2017 15:37:39 Hypothyroidism 11764504 E03.9 Last TSH 6.65, will increase levothyrox ine to 37.5mcg daily. new rx providd. she has lab orders and will have them checked in 4-6 weeks. Contusion of forearm 398 48608 S50.11XA small contusion, improving. Bipolar I disorder 35891 6008 F31.9 Recent partial hospitaliz ation x 2 weeks, discharged today, is feeling better and looking forward to her tiar[place] vacation starting on sunday. [id number] Kait Felipevedo Main Office [address] [facility] [address] [facility] [place] [address] 07/27/2017 13:51:39 07/27/2017 14:17:38 Horse bite wound 623332224 W55.11XA Healing well, currently on clinda based on culture results. she is taking a probiotic, eating yogurt, instructed to eat 20 mins prior to abx. Call or return for any concerns or worsening. Open wound of abdominal wall 177233707 S31.100A [id number] Josee Casillas MD Main Office [address] [facility] [address] [facility] [place] [address] 12/04/2017 11:06:41 12/04/2017 11:40:34 Needs influenza immunization 207298951 Z23 [id number] Izaiah Prajapati MD Main Office [address] [facility] [address] [place] [address] 12/14/2017 15:10:05 12/14/2017 16:03:05 Seborrheic dermatitis of scalp 499655586 L21.0 Seborrheic dermatitis 50 542131 L21.9 Will cover initially for both fungal and bacterial etiologies with low potency steroid for inflammati on. Less likely psoriasis but if persistent /worse will need derm referral. Impetigo 13024194 L01.00 [id number] Idalmis nicolas Main Office [address] [facility] [address] [address] 04/03/2018 13:53:17 04/03/2018 14:54:27 Asthma 809966161 J45.909 Refilled pro air to use prn Acute otitis media 90578 03 H66.92 Advise to use otc pain reliever if needed, will start zpack tomorrow. She is on seroquel which has a potential interactio n with azithromyc in but the patient has been off the seroquel for 4 days (rx ran out). Will restart seroquel today at 1 pill a day, add zpack tomorrow and stay on lower seroquel dose until zpack is completed. Call if has any dizziness or chest discomfort . Eruption 565216103 R21 Does not appear to be shingles, infection or coxsackie virus at this time. Will use desonide bid (has this at home). Call if rash not improving. Likely contact dermatitis vs eczema. 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 Medication monitoring 39 1483426 Z51.81 needs EKG due to meds for bipolar Impacted c erumen of bilateral ears 7364646834 522770 H61.23 soak and lavage today . canals clear upon discharge Asthma 352988115 J45.90 9 asthma is controlled . 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 Encouraged less carbs and increased exercise. Labs are normal, will check fasting BS with next labs Hypothyroidism 86931118 E03.9 TSh trending up , now close to 10. Will gradually increase med alternatin g 1 with 1.5 of levothyrox ine daily. Check TSH 6 weeks Bipolar I disorder 35588 6008 F31.9 pt doing better continue meds listed and will call therapist if not doing well. Follows with current mental health providers. [id number] Dominga Maxvaibhav Main Office [address] [address] [place] [address] 12/20/2018 14:53:53 12/20/2018 15:58:11 Lumbar radiculopathy 501987446 M54.16 start medrol today and PT alan next week, TC#3 sparingly for pain, supplement with otc meds. Pt aware no refills on pain med. Rest but change position and walk frequently . Stretching at home. Call or ED if acutely worse or any bowel/blad shona sx. Followup in a few weeks. [id number] Dominga Maxvaibhav Main Office [address] [address] [place] [address] 01/10/2019 13:55:04 01/10/2019 14:39:13 Low back pain 622606280 M54.5 Continue PT for another 4-6 weeks, continue home exercises Acute back pain with sciatica 150176248 M54.42 use mobic for a week then prn if still having pain. If not better in 4-6 weeks, consider imaging. [id number] Idalmis nicolas Main Office [address] [address] [place] [address] 01/24/2019 10:34:24 01/24/2019 10:53:58 [id number] Dominga Gisell Main Office [address] [facility] [address] [place] [address] 08/04/2019 13:56:48 08/04/2019 15:29:46 Impacted cerumen 59503414 H61.23 removed today, right canal still red, distally has some ? soft wax 7-8 oclock, ? cholesteat germania will recheck in 2 weeks, no water in right ear. Call if any pain or changes in ear or hearing. [id number] Dominga Maxvaibhav Main Office [address] [address] [place] [address] 08/18/2019 13:46:56 08/18/2019 14:21:42 Serous otitis media 19282330 H65.91 steam, flonase, keep hydrated, ENT if not better. Cannot take oral steroids, makes her manic. 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 but sees them, more positive than in the past Screening for malignant neoplasm of breast 692082042 Z12.39 pt to set up first mammogram Bipolar I disorder 78658 6008 F31.9 doing very well, will get orer from psychiatry for a lithium level Hypothyroidism 07346671 E03.9 get thyroid test Eczema 35428585 L30.9 eyebrows, ears tx as below Psoriasis of scalp 62625 8008 L40.9 Screening for malignant neoplasm of cervix 864006653 Z12.4 pt to make appt [id number] Idalmis nicolas [facility] [address] [address] [place] [address] 10/02/2019 06:24:57 10/06/2019 09:11:51 Hypothyroidism 21372376 E03.9 elevated TSH ordered by psych, will increase dose and recheck in 6 weeks. Bipolar I disorder 01269 6008 F31.9 doing well, labs by psychiatry , will talk with pharmacist how to take the thyroid and lithium levels so they do not interfere with each other Mild inter mittent asthma 294407317 J45.20 stable continue meds [id number] Idalmis JaimeSnow maria isabel [facility] [address] [facility] [address] [place] [address] 10/16/2019 08:37:38 10/16/2019 11:49:29 Hypothyroidism 17673718 E03.9 thyroid dose was increased recently but now pt does not feel well. plan is to have pt recheck thyroid level today, she is taking it midday a few hours after lithium,michoacano sanchez had asked the pharmacist for suggestion , so this is different than how she took it in the past Bipolar I disorder 1798757 3408 F31.9 feels very emotional Not grounded . is working with therapist, no suicidal plans but has some thoughts, feels safe and promises she can keep herself safe, work with counselor [id number] Dominga Jameson [facility] [address] [facility] [address] [place] [address] 11/28/2019 12:54:48 12/02/2019 10:41:25 Seborrheic dermatitis of scalp 921965286 L21.0 Use Tgel hampoo a few time a week and then put lotion on affected areas bid for a week, then use prn only, call if not helping and would do dermatolog y referral [id number] Idalmis Bailey nicolas Main Office [address] [address] [place] [address] 03/18/2020 15:02:30 03/18/2020 16:15:08 Eczema 00351655 L30.9 on MTX, improving, pt knows to take extra precaution s against Covid infectin Anxiety state 340686146 F41.1 on meds, sees counselor hard 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 [employer] which 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 Bipolar I disorder 17065 6008 F31.9 a bit of a struggle but doing ok, more resources, Mild inter mittent asthma 082996620 J45.20 stable continue meds Hypothyroidism 94191198 E03.9 continue meds [id number] Idalmis Bailey nicolas Main Office [address] [facility] [address] [place] [address] 07/14/2020 13:22:37 07/14/2020 13:57:55 Eczema 13102020 L30.9 on MTX, improving, pt knows to take extra precaution s against Covid infection Mild inter mittent asthma 475756128 J45.20 stable continue meds Hypothyroidism 93398462 E03.9 continue meds Macromastia 638814564 N6 2 pain in shoulders and upper back and rashes under breasts considerin g breast reduction, will refer to plastic surgeon Screening for malignant neoplasm of breast 781872221 Z12.39 pt to set up first mammogram Bipolar I disorder 30814 6008 F31.9 a bit of a struggle but doing ok, more resources, [id number] Reyes Fine MD Main Office [address] [facility] [address] [place] [address] 08/27/2020 10:24:55 08/27/2020 12:15:05 Impacted cerumen 61160304 H61.23 Cerumen removed in Right.Left sided aborted after removal of some wax in the exterior ear as it looked like patient caused trauma to her ear drum from q-tip use. Mild inter mittent asthma 053815508 J45.20 Notes under controll with inhalers, needed refills. Acute otitis media 35203 03 H66.92 After wax removal patient notes improvemen t in hearing denies vomiting, dizziness, or facial weakness, fever. Will provide ear drops advised injured ear drums can heal on its own thus will f/u in 2 weeks to reassess. Will refer to ent. Perforatio n of tympanic membrane 40315078 H72.92 [id number] Idalmis nicolas Main Office [address] [facility] [address] [place] [address] 12/22/2020 10:51:31 12/22/2020 11:39:16 Adult health examination 703546880 Z00.00 doing pretty well, keeping active, in counseling weekly and meds by psychiatry , anxiety due to upcoming skin lesion resection. 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 She had the visit with Dr Ny and contracts for safety, has crisis numbers, family and therapist support. Does not feel the need for ED evaluation . Dr Ny and patient comforatab le with the plan. Reschedule AWV later. [id number] Dominga Jameson Main Office [address] [facility] [address] [place] [address] 04/05/2022 14:54:10 04/05/2022 15:57:29 Adult health examination 428045885 Z00.00 Pt is in good general health with mental health stable and improved. 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 Social and family history reviewed. Immunizati ons reviewed, advised annual flu shot which she had. She is not up to date on dental and eye providers, will make appt. mammogram utd, commercial real estate manager utd Reviewed diet and exercise. Hypothyroidism 14478891 E03.9 recent tsh normal Mild inter mittent asthma 194072441 J45.20 renew med, uses prn Bipolar I disorder 71930 6008 F31.9 pt doing better continue meds listed and will call therapist if not doing well. Follows with current mental health providers. 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 0 pt gets meds for bipolar from Dr Porfirio Hearn in [facility] in [facility] n heartrate 107, EKG with NSR, normal QT interval. Hypothyroidism 26954234 E03.9 continue med [id number] RENUKA RAMÍREZ MD Main Office [address] [facility] [address] [place] [address] 06/16/2022 12:51:46 06/16/2022 13:43:42 Laceration of finger 556491445 S61.210A - pt had 8 sutures placed on right second digit after laceration with veggie cutter- 2 sutures were removed today as it was noted as the sutures were removed patient skin had not completely healed, will remove rest 12-14 day usman- RTC in 2 days Transition of care from emergency department to self-care [id number] 83477 Z76.89 - presented to urgent care on 06/06 after laceration of right second and third digits [id number] Kait Campo Main Office [address] [facility] [address] [place] [address] 06/19/2022 09:20:48 06/19/2022 10:05:55 Laceration of finger 594704397 S61.210D - pt had 8 sutures placed on right second digit after laceration with veggie cutter- 2 sutures were removed on 06/16- other 6 suture were removed today on 06/19- pt does have one small area were the laceration is still prominent therefore wound precaution s were given- RTC if patient note warm, tenderness , redness or discharge [id number] Idalmis nicolas Main Office [address] [facility] [address] [facility] [place] [address] 06/30/2022 15:53:21 06/30/2022 16:22:25 Injury of finger 45249379 S69.91XD see hpi and PE. 3rd finger cauterized in UC still with balck hard cover and 2nd healing after sutures. will refer to plastic surgery to address the 3rd finger, asked for appt early next week. 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 by [facility] Bipolar I disorder 08958 6008 F31.9 - follows with psychiatry every 3 months, as a new provider started seeing one year ago- currently on quetiapine 800mg QD and lithium 600mg BID- [facility] Mild inter mittent asthma 315116900 J45.20 - pt takes albuterol pump has needed (will go months without using it)- take singular 10mg daily Injury of finger 6247796 8 S69.91XD - second digit all sutures removed, wound still has dried blood, healing very slow- third finger still black with very little improvemen t since 06/06- pt was referred to plastics> [facility] cannot see patient until after December, called to push date forward, request refused> currently looking for other plastic surgeons in the area- ED precaution s given- RTC in one month for continued follow-up Psoriasis 0128628 L40.9 - currently on humira injections which provides relief [id number] RENUKA RAMÍREZ MD Main Office [address] [facility] [address] [place] [address] 07/14/2022 13:23:31 07/14/2022 14:05:46 Injury of finger 57930554 S69.91XD - improving- second digit all sutures removed, wound still has dried blood, healing very slow- third finger cautrized wound is healing, scabbing is regressing - pt was referred to plastics> [facility] cannot see patient until after December, called to push date forward, request refused> spoke with Dr. Nahum Melendez on 07/07/2022 about case, expressed that patient needed wound care at this time- Wound care: to soak fingers in warm soapy water 3X a day for 20 mins. After soaking can scrub off the excess skin. Pt to repeat daily until pink to allow for healing.- wound care referral also provided [id number] RENUKA RAMÍREZ MD Main Office [address] [facility] [address] [place] [address] 08/17/2022 11:20:11 08/17/2022 12:07:00 Injury of finger 13969278 S69.91XD - improving- second digit: at today visit noted that piece of skin that was originally sutured is no longer in place. The skin was removed. Well-heale d tissue noted underneath .- third finger which was cauterized is now healed- pt was referred to plastics> [facility] cannot see patient until after December, called to push date forward, request refused> spoke with Dr. Nahum Melendez on 07/07/2022 about case, expressed that patient needed wound care at this time- Wound care: to soak fingers in warm soapy water 3X a day for 20 mins. After soaking can scrub off the excess skin. Pt to repeat daily until pink to allow for healing.- wound care referral pt has an appoitment in september- RTC in 1-2 months to ensure second digit has fully healed [id number] Josee Casillas MD Main Office [address] [facility] [address] [place] [address] 08/29/2022 12:52:30 08/29/2022 13:46:55 Impacted cerumen of bilateral ears 2715488657 759550 H61.23 Acute righ t otitis media 033770136 H66.91 [id number] Kait Campo Main Office [address] [facility] [address] [place] [address] 09/28/2022 14:37:07 09/28/2022 15:09:58 Injury of finger 87595452 S69.91XD - now resolved, second and third digit have completely healed- pt was referred to plastics> [facility] cannot see patient until after December, called to push date forward, request refused> spoke with Dr. Nahum Melendez on 07/07/2022 about case, expressed that patient needed wound care at this time- Wound care: to soak fingers in warm soapy water 3X a day for 20 mins. After soaking can scrub off the excess skin. Pt to repeat daily until pink to allow for healing.- pt never went to wound care clinic as she never booked an appoitment , no longer needs wound care- pt mentions she continues to have pain at the finger tips radiating down the hand. pt has a hard time characteri sing the pain. 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 do not believe pain is coming from accident with veggie slicer as patient was not having this pain at time of the accident or at any of the follow-up visits were her wound was treated- ordered Nocturnal wrist splinting in the neutral position- universal wrist brace bilateral- Medication s- ibuprofen and tylenol as needed- Electrodia gnostic studies hold off for now- pt advised to practice mindfullne ss to help with the pain Anxiety 90764536 F41.9 [id number] RENUKA RAMÍREZ MD Main Office [address] [facility] [address] [place] [address] 04/12/2023 12:51:49 04/12/2023 13:39:38 Adult health examination 228596277 Z00.00 Health Maintenanc e FemaleA) Patient was counseled on healthy diet, exercise and nutrition due to BMI of 31.5 B) ScreeningL ast Mammogram: start at age 50 stop at 74Date: 11/13/2022R esult: BIRADS-2Ne xt: repeat in 6 months on the left side Last Pap smear: start at age 21 to age 65Date: 12/27/2016 Results: HPV negative, no atypical cellsNext: DUE (pt advised to follow with commercial real estate manager) Last Colonoscop y: start at age 45-75Date: Result: Next: not yet of age Last DEXA scan:Date: due at 65Result: ??? C) Vaccines:I nfluenza: not this yearTdAP: 06/06/2022Z felix: due at 72LEB41: due at 37ABRL86: 02/15/2015 PCV20:PCV1 5:COVID: , 05/17/2020, 01/11/2021 , 12/07/2021 D) Routine blood work orderedE) Updated patient's history RTC in one year for annual exam or sooner if any acute complaints Fatigue 22798155 R53.83 Z00.00 Hyperlipidemia 29375871 E78.5 Z00.00 Hepatitis C screening 41 8779298 Z11.59 HIV screening 265893753 Z11.4 Anxiety state 274318209 F41.1 - NIA-7 score of 21- currently on lorazepam 1mg BID given by tino almonte which she follows every 3 months- patient is not doing well, does need adjustment to her medication , tino almonte aware> PT REFUSED MD TO CONTACT PERSCRIBER TO DISCUSS PATIENT CURRENT HEALTH> PT REFUSED ED EVALUATON> HAS AN INTAKE APPOITMENT ON April- amos valentine, 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- medication s filled by tino almonte Bipolar I disorder 68082 6005 F31.9 - PHQ-9 score score of 25 with elevated NIA-7 score- patient is not doing well, does need adjustment to her medication , tino almonte aware> PT REFUSED MD TO CONTACT PERSCRIBER TO DISCUSS PATIENT CURRENT HEALTH> PT REFUSED ED EVALUATON> HAS AN INTAKE APPOITMENT ON April- pt does express suicidal idea but does not have a plan- follows with psychiatry every 3 months, as a new provider started seeing one year ago- currently on quetiapine 800mg QD and lithium 600mg BID- medication s filled by psychiatri st- ED precaution s given- RTC in 4 weeks Hypothyroidism 77898960 E03.9 - will check levels- c/w levothyrox ine 100mcg QD Mild inter mittent asthma 131712348 J45.20 - pt takes albuterol pump has needed (will go months without using it)- take singular 10mg daily Vitamin D deficiency 347 43139 E55.9 Irritable bowel syndrome with diarrhea 197295702 K58.0 - pt is currently taking dicyclomin e 10mg QID as needed Psoriasis 4959998 L40.9 - currently on humira injections which provides relief Tachycardia 1734514 R00. 0 - HR today was 120- EKG has a lot of artifact but sinus tachycardi a with HR of 109- pt was started on metoprolol succinate ER 25mg- most likely due to elevated anxiety Screening for malignant neoplasm of cervix 344043940 Z12.4 Body mass index 30+ - obesity 035987575 E66.9 Z68.31 - BMI of 31.5- Cut down on (limit) fast foods, sweets, and processed snack foods.- Limit alcohol intake to no more than 1- 2 drinks a day for men. One drink equals 12 oz of beer, 5 oz of wine, or 1 oz of hard liquor.- Keep a weight loss journal and keep track of the food and portions that you eat.- The exercise that you do- 4 times a week or 150 minutes cumulative of moderate exercise recommende dJaycob [id number] Kait Campo Main Office [address] [place] [address] 04/26/2023 14:37:13 04/26/2023 15:09:02 Hepatitis C antibody detected 035292571 Z86.19 - ordered hepatic function panel- ordered confirmato ry testing testing by checking viral load and genotype- if positive will send to GI Acute kidney injury 1466 9001 N17.9 - pt advised to remain hydrated- continue to avoid NSAIDs- repeat blood work ordered [id number] RENUKA RAMÍREZ MD Main Office [address] [place] [address] 05/17/2023 13:49:04 05/17/2023 14:29:35 Anxiety state 793063598 F41.1 - NIA-7 score of 17- currently on lorazepam 1mg BID given by [facility] which she follows every 3 months> pt advised not to take the medication with clonazepam 0.5mg- counsellin radha provided, 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 0 - HR today was 109- EKG done on 04/12 has a lot of artifact but sinus tachycardi a with HR of 109- c/w metoprolol succinate ER 25mg- ordered US echo- pt referred to cardiology for holter monitor- [facility] will also be adjusting meds to help improve HR [id number] RENUKA RAMÍREZ MD Main Office [address] [place] [address] 08/13/2023 14:37:29 08/13/2023 15:13:08 Tachycardia 9745965 R00.0 - now resolved- HR today was 93- EKG done on 04/12 has a lot of artifact but sinus tachycardi a with HR of 109- EKG done 08/12 showed NSR with HR of 87- since HR is back to normal range will stop metoprolol succinate ER 25mg- US echo done on 06/2023 is normal- pt was seen cardiology , will request note Vitamin D deficiency 347 33422 E55.9 - pt noted to have elevated level on 04/17/2023 -> 68- pt was advised to start back on 1000 IU to prevent levels from going too low> pt was advised this when informed of blood however she did not read message properly Psoriasis 1506781 L40.9 - currently on cyltezo injections which provides relief- pt does have an area at the back of left ear were the psoriasis is worse, pt provided with clobetasol cream and advised to moisturise [id number] RENUKA RAMÍREZ MD Main Office [address] [facility] [address] [facility] [place] [address] 12/21/2023 15:15:32 12/21/2023 16:02:18 Acute kidney injury 52239686 N17.9 - pt advised to remain hydrated- continue to avoid NSAIDs- repeat blood work ordered Anxiety state 088638281 F41.1 - NIA-7 score of 8- lorazepam as been stopped and switched to clonazepam - counsellin g provided, 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- [facility] Bipolar I disorder 34862 6280 F31.9 - improved- PHQ-9 score score of 6 with elevated NIA-7 score 8- pt has completed day-progra m at [place]> clonazepam 0.5mg as added to regimen- pt will be following with psychiatry over the next few month to optimize her meds as it could be the cause of the tachycardi a- currently on quetiapine 800mg QD and lithium 600mg BID- medication s filled by psychiatri Hypothyroidism 84637897 E03.9 - will check levels- c/w levothyrox ine 100mcg QD Mild inter mittent asthma 053419737 J45.20 - pt takes albuterol pump has needed (will go months without using it)- take singular 10mg daily Tachycardia 4301793 R00. 0 - now resolved- HR today was 81- EKG done on 04/12 has a lot of artifact but sinus tachycardi a with HR of 109- EKG done 08/12 showed NSR with HR of 87- since HR is back to normal range will stop metoprolol succinate ER 25mg- US echo done on 06/2023 is normal- pt was seen cardiology , will request note Needs infl uenza immunization 683468344 Z23 19 YEARS AND OLDER ONLY Tremor 27272826 R25.1 - ordered vitamin b12 and folate- ordered MRI of the brain for further evaluation - pt psychiatri started patient on propanolol ER 60mg Urinary incontinence 165 506639 R32 - pt has been following with urology, advised to given them a call for follow-up Numbness of hand 7187656 04 R20.0 - occurred after incident veggie slicer- located on right hand on second and third digit- pt having neuropathi c pain and temperatur e sensitivit ies- referred to hand surgery for second option however feel that pain is from severed never endings and may permanent [id number] RENUKA RAMÍREZ MD Main Office [address] [facility] [address] [address] 01/01/2024 09:20:34 01/01/2024 09:55:35 Transition of care from emergency department to self-care 8165215557 69803 Z76.89 - presented to urgent care on 12/23 for cellulitis of lower extremity- reviewed notes Cellulitis 273280520 L03 .90 - well healing- no need for repeat antibiotic treatment at this time- wound culture grew Beta hemolytic Streptococ cus, group B which is susceptibl e to keflex- pt advised to keep area clean and dry- return precaution s were discussed [id number] RENUKA RAMÍREZ MD Main Office [address] [facility] [address] [facility] [place], [place] [address] 03/24/2024 14:33:30 03/24/2024 15:06:31 Acute kidney injury 11885118 N17.9 - creatine 1.1 and GFR of 58- pt advised to remain hydrated- continue to avoid NSAIDs- repeat blood work ordered Hypothyroidism 78266459 E03.9 - normal levels- will check levels- c/w levothyrox ine 100mcg QD Tachycardia 7267643 R00. 0 - now resolved- HR today was 97- EKG done on 04/12 has a lot of artifact but sinus tachycardi a with HR of 109- EKG done 08/12 showed NSR with HR of 87- since HR is back to normal range will stop metoprolol succinate ER 25mg- US echo done on 06/2023 is normal- pt was seen cardiology on 06/29/2023 -> no testing was done as HR was under control with metoprolol at the time Tremor 88428812 R25.1 - normal vitamin b12- MRI of the brain of brain is normal- pt psychiatri st started patient on propanolol ER 60mg> do believe dosage is slightly elevated for patient who has never taking medicine. To recommend a more step melendez approach with 40mg IR QD and increasing to 40mg IR BID after 4 weeks. If tolerates well can to the propanolol ER 60mg. She will discuss this with her psychiatri st Urinary incontinence 165 382653 R32 - pt has been following with urology, advised to given them a call for follow-up Numbness of hand 0133343 04 R20.0 - occurred after incident vebenjamin slicer- located on right hand on second and third digit- pt having neuropathi c pain and temperatur e sensitivit ies- pt is currently following with hand surgery [id number] Estrellita Pitt PA-C Main Office [address] [place] [address] 04/15/2024 13:36:44 04/15/2024 14:47:23 Impacted cerumen of bilateral ears 1951354715 038861 H61.23 Bilateral cerumen impaction , recurrent. Recommend to avoid using q-tip. Ears were irrigated with large amount of cerumen removed , but still with residual amount left behind. Recom. to use Debrox for 3-5 days. Recom ear irrigation every 6-8 m. Health Concerns Section Related Observation LastModified by Organization Detai ls LastModified Time None Recorded Concern Status LastModified by Organization Details LastModified Time None Recorded Advance Directives Directive N: Payers Encounter Date Sequence Insurance Name Policy Number Policy Scott Covered Member ID Scott Member ID Guarantor Name 08/13/2023 1 [place] [employer] Crystal Mackay Eduard [id number] Crystal Mackay Eduard 08/13/2023 2 [place] [facility] Crystal Mackay Eduard [id number] Crystal A Eduard 12/21/2023 1 [place] [employer] Crystal Codie Eduard [id number] Crystal A Eduard 12/21/2023 2 [place] [facility] Crystal Mackay Eduard [id number] Crystal A Eduard 01/01/2024 1 [place] [employer] Crystal Codie Eduard [id number] Crystal A Eduard 01/01/2024 2 [place] [facility] Crystal Codie Eduard [id number] Crystal Codie Eduard 03/24/2024 1 [place] [employer] Crystal Chapa [id number] Crystal Chapa 03/24/2024 2 [place] [facility] Crystal Chapa [id number] Crystal Chapa 04/15/2024 1 [place]ICARE [place] [facility] Crystal Chapa [id number] Crystal hCapa 04/15/2024 2 [place] [facility] Crystal Chapa [id number] Crystal Chapa Notes Date Note Type Note Provider Name and Address Organization Details Recorded Time 4 text/html Crystal Chapa is a 43 year old F who presented to the clinic for follow-up on tachycardia. It was also noted that patient's HR was very elevated on visit of 04/12/2023. EKG showed sinus tachycardia with HR 109 with lots of nose. of As a result patient was started on metoprolol ER 25mg. Patient has since seen cardiology. Underwent US echo which was normal. Pt mentions she no longer has any heart palpitations. RENUKA RAMÍREZ MD [address] [address], [place], [phone], [facility] [place] 08/13/2023 16:16:00 4 text/html IncontinenceReported bypatient.Quality:urge incontinence Severity:mild Duration:intermittent Context:anxiety Crystal Chapa is a 43 year old F who presented to the clinic for follow-up on her chronic conditions. Patient has been following with a new ENVIRONMENTAL SCIENCE PROFESSOR for her psychiatrist medications. Overactive bladder: Pt has been having worsening urine incontinence. Was seen by urology in 2022 and was to follow-up in 3 months but has not. Pt is currently wearing pads. Pt has urinary urgency and feels incomplete bladder emptying. Tremors: intermittent and worse when she is thinking about it. Finger laceration located on the right hand, second and third digit. Pt had initially injured her fingers on 06/06 with a veggie slicer. The fingers have healed however since the incident patient has been having intermittent neuropathic and temperature sensitivities. RENUKA RAMÍREZ MD [address], [phone], [facility] [place] 12/21/2023 19:14:18 4 text/html Emergency Department Follow-Up RecordReported bypatient.Discharge Informationname of ED Local Urgent Care; emergency department discharge date: (Please enter in format 'MM/DD/YYYY') (12/24/2023); date of follow-up phone call: (Please enter in format 'MM/DD/YYYY') (01/01/2024)Notes:Pt underwent I and D however there was not a lot drainage. A wound culture was taken which showed Beta hemolytic Streptococcus, group B. Pt given keflex. Crystal Chapa is a 43 year old F who presented to the clinic for urgent care follow-up. Pt was seen on 12/24/2023 for cellulitis of the left thigh. Pt has no completed keflex. RENUKA RAMÍREZ MD [address], [phone], [facility] [place] 01/01/2024 10:00:18 5 text/html IncontinenceReported bypatient.Quality:urge incontinence Severity:mild Duration:intermittent Context:anxiety Crystal Chapa is a 43 year old F who presented to the clinic for follow-up on her chronic conditions. Patient has been following with a new ENVIRONMENTAL SCIENCE PROFESSOR for her psychiatrist medications. Pt started a new program in order for her to get some skills. Overactive bladder: Pt has been having worsening urine incontinence. Was seen by urology in 2022 and was to follow-up in 3 months but has not. Pt is currently wearing pads. Pt has urinary urgency and feels incomplete bladder emptying. Tremors: intermittent and worse. Pt feels her whole body shakes. Has not started propanolol 60mg ER yet. Finger laceration located on the right hand, second and third digit. Pt had initially injured her fingers on 06/06 with a veggie slicer. The fingers have healed however since the incident patient has been having intermittent neuropathic and temperature sensitivities. Has seen the hand specialist. Underwent ultrasound which was normal. MRI has been ordered. RENUKA RAMÍREZ MD [address], [phone], [facility] [place] 03/24/2024 15:07:59 text/html 43 year old female c/o 5 day onset of bilateral ear ache and decreased hearing. NO viral symptoms, denies fever, chills. H/o cerumen impaction in the past. Uses q-tips. Estrellita Pitt PA-C [address] [address], [place], [phone], [facility] [place] 04/15/2024 15:10:36 OBGyn Episode No OBEpisode recorded.
--- OUTSIDE RECORDS SUMMARY | 2024-05-22 07:51 | XMS_ITS | Clinical Summary ---
Author Organization [facility] Address [address] [place] [address] Care Team Providers Care Residential Counselor Name Role Phone Unavailable Primary Care Provider Unavailabl e Social History Tobacco Use Types Packs/Day Years Used Date Smoking Tobacco: Never Assessed Sex and Gender Information Value Date Recorded Sex Assigned at Not on file Gender Identity Not on file Sexual Orientation Not on file Plan of Treatment Not on file
--- NOTE | 2024-05-22 07:54 | ECG_ITS ---
Test Reason : r/o qtc prolongation Blood Pressure : */* mmHG Vent. Rate : 84 BPM Atrial Rate : 84 BPM P-R Int : 146 ms QRS Dur : 80 ms QT Int : 358 ms P-R-T Axes : 73 74 74 degrees QTcB Int : 423 ms Normal sinus rhythm Possible Left atrial enlargement Nonspecific T wave abnormality Abnormal ECG When compared with ECG of 03-May-2023 07:49, No significant change was found Referred By: Dee Griffin Electronically Signed By: GILBERTO ROSALES
[2024-05-22 08:17] LABS: MANUAL DIFF FLAG NO
[2024-05-22 08:29] LABS: Appearance Urine Clear; Color Urine Yellow; Glucose Urine UA Negative (Negative); Leukocyte Esterase Urine Negative (Negative); Nitrite Urine Negative (Negative); PH 6.5 (5.0-9.0); Urine Blood Negative (Negative); Urine Ketones Negative (Negative); Urine Protein Negative (Neg-Trace)
[2024-05-22 08:30] LABS: Basophils Absolute Auto 0.1 X10*3/uL (0.0-0.2); Basophils Percent Auto 1.2 % (0-2); Eosinophils Absolute Auto 0.6 X10*3/uL (0.0-0.4); Hematocrit 39.4 % (37.0-47.0); Hemoglobin 13.5 g/dl (12.0-16.0); Imm Gran Abs Auto 0.02 X10*3/uL (0.00-0.03); Imm Gran Pct Auto 0.2 % (0.0-0.4); Lymphocytes Absolute Auto 2.9 X10*3/uL (1.2-4.9); Lymphocytes Percent Auto 31.9 % (20-40); Mean Corpuscular HGB Conc 34.3 g/dl (31.0-35.0); Mean Corpuscular Volume 90.4 fL (80.0-98.0); Mean Platelet Volume 10.3 fL (9.4-12.3); Monocytes Absolute Auto 0.4 X10*3/uL (0.1-1.2); Monocytes Percent Auto 4.4 % (2-11); Neutrophils Percent Auto 55.3 % (45-73); Platelet Count 327 X10*3/uL (160-400); Red Blood Count 4.36 X10*6/uL (4.20-5.50); Red Cell Distribution Width 13.6 % (11.0-16.0); White Blood Count 9.1 X10*3/uL (4.8-10.8)
[2024-05-22 08:37] LABS: INTERNATIONAL NORM RATIO 0.9 (0.9-1.1); Prothrombin Time 10.9 SEC (10.9-12.4)
[2024-05-22 08:39] LABS: Estimated Average Glucose 100 mg/dL; Hemoglobin A1C 115.0375 umol/L; Hemoglobin A1c % 5.1 % (<6.0); Total Hemoglobin (HGBA1C) 3627.9513 umol/L
[2024-05-22 08:40] LABS: Partial Thromboplastin Time 31.9 SEC (26.0-36.8)
[2024-05-22 09:01] LABS: Alanine Aminotransferase 17 U/L (0-31); Albumin Level 4.2 g/dL (3.5-5.0); Alkaline Phosphatase 81 U/L (39-117); Anion Gap 9 (12-20); Aspartate Amino Transferase 18 U/L (5-31); Bilirubin Total 0.4 mg/dL (0.0-1.0); Blood Urea Nitrogen 18 mg/dL (9-16); Calcium 9.3 mg/dL (8.4-10.2); Carbon Dioxide 27 mmol/L (22-29); Chloride 111 mmol/L (96-108); Cholesterol 172 mg/dL (<200); Estimated Glomerular Filt Rate 54; Glucose Fasting 105 mg/dL (60-99); HDL Cholesterol 54 mg/dL (>40); Iron 59 mcg/dL (30-160); LDL Cholesterol Calculated 99 mg/dL (<100); Magnesium 2.5 mg/dL (1.6-2.6); Percent Iron Saturation 19 % (15-50); Phosphorus 3.3 mg/dL (2.7-4.5); Potassium 4.2 mmol/L (3.3-5.1); Sodium 143 mmol/L (135-145); Total Iron Binding Capacity 316 mcg/dL (228-428); Total Protein 7.8 g/dL (6.5-8.0); Triglycerides 96 mg/dL (<150); Unsaturated Iron Binding 257 ug/dL
[2024-05-22 09:06] LABS: Erythrocyte Sedimentation Rate 14 MM/HR (0-20)
[2024-05-22 09:08] LABS: Lithium 0.79 mmol/L (0.60-1.20)
[2024-05-22 09:23] LABS: Parathyroid Hormone Intact 89.2 pg/mL (8.7-77.1)
[2024-05-22 09:24] LABS: Ferritin 45 ng/mL (10-250); Free T4 (Free Thyroxine) 0.98 ng/dL (0.71-1.85); Thyroid Stimulating Hormone 5.51 uIU/mL (0.32-4.0); Vitamin D 25-OH Total 39.7 ng/mL (>30)
[2024-05-22 09:26] LABS: Folate 4.9 ng/mL (> or = 4.0); Vitamin B12 394 pg/mL (200-900)
[2024-05-23 18:49] LABS: Prolactin 29.7 ng/mL
[2024-05-23 21:03] LABS: Triiodothyronine T3 Free 2.6 pg/mL (2.3-4.2); Triiodothyronine T3 Total 51 ng/dL (76-181)
[2024-05-27 06:10] LABS: Methylmalonic Acid 278 nmol/L (55-335)
[2024-05-27 14:28] LABS: Vitamin B6 14.5 ng/mL (2.1-21.7)
[2024-05-28 01:38] LABS: Estrone 53 pg/mL
[2024-05-29 09:38] LABS: Anti Nuclear Antibody Screen POSITIVE (NEGATIVE)
[2024-05-30 16:49] LABS: Vitamin B1 10 nmol/L (8-30)
[2024-06-03 07:49] LABS: Estradiol Ultra Sensitive 49 pg/mL
[2024-06-05 05:31] LABS: Progesterone <0.1 ng/mL
== END 2024-05-22 07:46 | disposition home or self-care (01) ==
LOC: HO.LAB 07:45
PROVIDERS: PCP Student in an Organized Health Care Education/Training Program; Visit Provider Psychiatry & Neurology Psychiatry
DX: F39 Unspecified mood [affective] disorder (principal); F06.70 Mild neurocognitive disorder due to known physiological condition without behavioral disturbance; N93.0 Postcoital and contact bleeding; Z13.1 Encounter for screening for diabetes mellitus
CPT/HCPCS: 36415; 80053; 80061; 80178; 81003; 82306; 82550; 82607; 82670; 82679; 82728; 82746; 83036; 83090; 83540; 83735; 83921; 83970; 84100; 84144; 84146; 84207; 84425; 84439; 84443; 84480; 84481; 85025; 85610; 85652; 85730; 86038; 86039; 93005

== ENCOUNTER → 2024-05-22 07:54 | Outpatient (BNV) | payer MEDICARE, MEDICAID, SELFPAY | PROVIDERS: PCP Student in an Organized Health Care Education/Training Program; Visit Provider Internal Medicine | DX: R94.31 Abnormal electrocardiogram [ECG] [EKG] (principal); Z13.6 Encounter for screening for cardiovascular disorders | CPT/HCPCS: 93010 ==

== ENCOUNTER 2024-06-05 14:08 | Outpatient (REF) | payer MEDICARE, MEDICAID, SELFPAY ==
[2024-06-05 16:01] LABS: Appearance Urine Clear; Color Urine Yellow; Glucose Urine UA Negative (Negative); Leukocyte Esterase Urine Negative (Negative); Nitrite Urine Negative (Negative); Specific Gravity - Urine <= 1.005 (1.005-1.025); Urine Blood Negative (Negative); Urine Ketones Negative (Negative); Urine Protein Negative (Neg-Trace)
[2024-06-05 16:17] LABS: Estimated Glomerular Filt Rate > 60; Sodium 141 mmol/L (135-145)
[2024-06-05 16:23] LABS: Osmolality, Serum 298 mosm/kg (281-305)
[2024-06-05 16:34] LABS: Osmolality Urine 208 mosm/kg (373-1093)
[2024-06-05 16:48] LABS: Creatinine Urine 54.92 mg/dL
--- OUTSIDE RECORDS SUMMARY | 2024-06-05 17:16 | XMS_ITS | Clinical Summary ---
Author Organization [employer] [facility] Address [address] [place] [address] Care Team Providers Care Insolvency Consultant Name Role Phone Unavailable Primary Care Provider Unavailabl e Social History Tobacco Use Types Packs/Day Years Used Date Smoking Tobacco: Never Assessed Sex and Gender Information Value Date Recorded Sex Assigned at Not on file Gender Identity Not on file Sexual Orientation Not on file Plan of Treatment Not on file
--- OUTSIDE RECORDS SUMMARY | 2024-06-05 17:16 | XMS_ITS | Data Portability ---
Author Organization [facility], Main Office Address [address] [place] [address] Care Team Providers Care Leather Shaver Name Role Phone FARHAT MARION Industrial Spray Painter ABRAHAM WALL Psychiatrist JACK TOBIN [employer] Professional PARAS CESAR Continuous Miner Operator RENUKA RAMÍREZ Primary Care Provider [facility] Opto Mechanical Technician [facility] Clinical Psychologist [phone] Assessment No assessment recorded. Plan of Treatment Reminders Order Date Submit Date Provider Last Modified By Organization Details Last Modified Time Details Appointments [id number] 2024 01:30P M RENUKA RAMÍREZ MD Not available Not available Not available Lab BMP, serum or plasma 2024 025 NATHAN [facility] (Centralized Electronic Ordering - All Locations), Patient Can Go To The Location Of Their Choice, [id number] 03/24/2024 15:01:10 vitamin B12 + folate, serum or blood 2023 024 NATAHN [facility] (Centralized Electronic Ordering - All Locations), Patient Can Go To The Location Of Their Choice, [id number] 01/22/2024 06:07:49 TSH + free T4, serum 2023 024 NATHAN [facility] (Centralized Electronic Ordering - All Locations), Patient Can Go To The Location Of Their Choice, [id number] 01/22/2024 06:07:47 BMP, serum or plasma 2023 024 NATHAN [facility] (Centralized Electronic Ordering - All Locations), Patient Can Go To The Location Of Their Choice, [id number] 01/22/2024 06:07:48 Referral hand surgeon referral - hx of trauma of the right fingers 2nd and 3rd digit now having neuropath ic pain 2023 024 kermit Slater MD, [address] [place] [address] Dr, [address], [place], [address], 01/31/2024 11:26:55 Procedures cerumen removal (PROC) 2024 025 [place] In-Office Order, Internal Use Only DO Not Attach Compendium DO Not Attach Compendium, Do Not Delete/merge, [id number] 04/15/2024 14:54:53 Surgeries None recorded. Imaging MRI, brain, w/o contrast - pt is having worsening tremors noted in the upper extremiti es 2023 024 [facility] ([facility]), [address], [place], [address], 01/04/2024 10:54:21 electroca rdiogram 2023 024 [id number] In-Office Order, Internal Use Only DO Not Attach Compendium DO Not Attach Compendium, Do Not Delete/merge, [id number] 08/13/2023 15:13:08 Medication Orders clobetaso l 0.05 % topical cream 2023 024 [place] [id number], [address] [place] [address], [address], 12/21/2023 15:24:15 Patient TargetsNo targets recorded. Patient Instructions Encounter Date Encounter Id Patient Instructions Last Modified By Organization Details Last Modified Time 08/13/2023 [id number] medical record request* [email or web address] Not available 08/14/2023 14:46:49 psoriasis: care instructions Not available 08/13/2023 15:07:46 12/21/2023 [id number] hypothyroidism: care instructions Not available 12/21/2023 15:57:31 acute kidney injury: care instructions Not available 12/21/2023 15:57:31 01/01/2024 [id number] cellulitis: care instructions Not available 01/01/2024 09:59:50 [facility], all current and discharge medications (OTC, herbal therapies, supplements) reviewed and reconciled with patient and or caregiver, including potential side effects, drug interactions, instructions, and the consequences of not taking medication. Reviewed potential barriers to medication adherence, such as side effects from medication or cost of medication. [email or web address] Not available 01/01/2024 09:32:29 03/24/2024 [id number] hypothyroidism: care instructions Not available 03/24/2024 15:01:04 [...] L 0.450- 4.500 normal Not Available [facility] ([facility]) [address] [place], [address], 01/22/2024 06:07:47 01/21/2001/21/2024 TSH+F REE T4 T4,free(dire ct) 1.27 NG/dL 0.82-1 .77 normal Not Available [facility] ([facility]) [address] [place], [address], 01/22/2024 06:07:47 01/21/2001/21/2024 BASIC METAB OLIC PANEL (8) glucose 107 mg/dL 70-99 above high normal Not Available [facility] ([facility]) [address] [place], [address], 01/22/2024 06:07:48 01/21/20 24 01/21/2024 BASIC METAB OLIC PANEL (8) BUN 12 mg/dL 6-24 normal Not Available [facility] ([facility]) [address] [facility] [place], [address], 01/22/2024 06:07:48 01/21/20 24 01/21/2024 BASIC METAB OLIC PANEL (8) creatinine 1.19 mg/dL 0.57-1 .00 above high normal Not Available [facility] ([facility]) [address] [facility] [place], [address], 01/22/2024 06:07:48 01/21/20 24 01/21/2024 BASIC METAB OLIC PANEL (8) eGFR 58 mL/mi n/1.7 3 >59 below low normal Not Available [facility] ([facility]) [address] [facility], [place], [address], 01/22/2024 06:07:48 01/21/20 24 01/21/2024 BASIC METAB OLIC PANEL (8) BUN/creatini ne ratio 10 9-23 normal Not Available [facility] ([facility]) [address] [place], [address], 01/22/2024 06:07:48 01/21/20 24 01/21/2024 BASIC METAB OLIC PANEL (8) sodium 141 mmol/ L 134-14 4 normal Not Available [facility] ([facility]) [address] [place], [address], 01/22/2024 06:07:48 01/21/20 24 01/21/2024 BASIC METAB OLIC PANEL (8) potassium 4.3 mmol/ L 3.5-5. 2 normal Not Available [facility] ([facility]) [address] [place], [address], 01/22/2024 06:07:48 01/21/20 24 01/21/2024 BASIC METAB OLIC PANEL (8) chloride 103 mmol/ L 96-106 normal Not Available [facility] ([facility]) [address] [facility], [place], [address], 01/22/2024 06:07:48 01/21/20 24 01/21/2024 BASIC METAB OLIC PANEL (8) carbon dioxide, total 22 mmol/ L 20-29 normal Not Available [facility] ([facility]) [address] [facility], [place], [address], 01/22/2024 06:07:48 01/21/20 24 01/21/2024 BASIC METAB OLIC PANEL (8) calcium 9.6 mg/dL 8.7-10 .2 normal Not Available [facility] ([facility]) [address] [facility], [place], [address], 01/22/2024 06:07:48 01/21/20 24 01/21/2024 VITAM IN B12 AND FOLAT E vitamin B12 284 pg/mL 232-12 45 normal Not Available [facility] ([facility]) [address] [facility], [place], [address], 01/22/2024 06:07:49 01/21/20 24 01/22/2024 VITAM IN B12 AND FOLAT E folate (folic acid), serum 4.6 NG/mL >3.0 normal A serum folat e mary ntrat ion of less than 3.1 ng/mL is consi dered to repre sent clini rod defic iency . Not Available [facility] ([facility]) [address] [facility], [place], [address], 01/22/2024 06:07:49 04/15/1904/15/2024 cerum solis remov al (PROC ) done by Judie Not Available In-Office Order Internal Use Only DO Not Attach Compendium DO Not Attach Compendium, Do Not Delete/merge, [id number] 04/15/2024 14:21:49 08/12/19 24 08/14/2023 elina torres am No observ ation record ed. In-Office Order Internal Use Only DO Not Attach Compendium DO Not Attach Compendium, Do Not Delete/merge, [id number] 08/14/2023 12:42:32 08/13/19 elina torres am No observ ation record ed. In-Office Order Internal Use Only DO Not Attach Compendium DO Not Attach Compendium, Do Not Delete/merge, [id number] 08/13/2023 15:54:01 01/04/20 24 01/02/2024 MRI, brain , w/o contr ast No observ ation record ed. [facility] [address], [place], [address], 01/06/2024 16:17:03 05/16/19 25 05/15/2024 MAMMO , scree eric, digit al, bilat eral No observ ation record ed. [facility] [address], [place], [address], 05/15/2024 16:37:09 05/16/19 25 05/15/2024 MAMMO , [...] Lay letter mailed to natalie petersen WSN: [id number] Orderi ng Physic china: Steven Bender ie Dictat ed By: Naida Rodrigues MD, I Dictat ed Date/T don: 4:22 pm Review ed By: Naida Rodrigues MD, I Signed By: Naida Rodrigues MD, I Signed Date/T don: 4:22 pm Transc ribed By: CSB Transc riptio n Date/T don: 4:20 pm Birads : Natalie petersen Class: Outpat ient [email or web address] [facility] (Outpt Imaging) [address] [place] [address], [address], 05/16/2024 12:53:29 Result Notes None recorded. Problems Name Problem SNOMED Code Status Onset Date Resolution Date Notes Provider Name and Address Organization Details Recorded Time Abdomina l pain 57942516 Completed 201109/02/2013 RECORDED 02/19/20 12 1:39PM BY SHI SKAGGS MA, KIKAATI ON/ADDEN DUM Judie Botello [facility] 7 15:02:04 Acute pharyngi tis 665136655 Completed 200709/02/2013 IMPRESSI ON: NEG QUICK STREP, SEND CX; RECORDED 01/09/20 08 12:57PM BY MELITON MATHEWS ON/ADDEN DUM Not Available [facility] 4 14:53:44 Acute non-supp urative serous otitis media 528353439 Completed 201109/02/2013 IMPRESSI ON: RESOLVED INFECTIO N WITH TRACI. HASTEN RESOLUTI ON WITH FLONASE. REASSURE D INFECTIO N RESOLVED .; RECORDED 02/19/20 12 1:39PM BY SHI SKAGGS MA, ANNOTATI ON/ADDEN DUM Not Available [facility] 4 14:53:44 Anemia 110255966 Completed 201303/30/2016 RECORDED 06/21/19 14 2:38PM BY SHI SKAGGS MA, OFFICE VISIT Idalmis prajapati [facility] 7 16:11:49 Chronic alcoholi sm in [facility] 158535156 Completed 201109/02/2013 IMPRESSI ON: NOT DRINKING , PIKE BEEN IN [facility], YEARS AGO ALCOHOL ABUSE WAS AN ISSUE AND COMPLICA DANICA HER MENTAL HEALTH TREATMEN T; RECORDED 02/19/20 12 1:40PM BY SHI SKAGGS MA, ANNOTATI ON/ADDEN DUM Not Available [facility] 4 14:53:44 Alopecia [id number] Completed 201303/30/2016 RECORDED 06/21/19 14 2:38PM BY SHI SKAGGS MA, OFFICE VISIT Idalmis prajapati [facility] 7 16:12:02 Anxiety state 348672604 Active 2013 FRIEDA Goyal [facility] 8 15:03:46 Patient status finding [id number] Completed 201209/02/2013 RECORDED 06/06/19 13 11:40AM BY NYDIA CHRISTIANSEN MA, ANNOTATI ON/ADDEN DUM FRIEDA French [facility] 7 15:01:47 Asthma 087361010 Completed 201310/02/2019 Idalmis prajapati [facility] 0 10:11:13 Acute asthma 077457021 Completed 201109/02/2013 RECORDED 02/19/20 12 1:39PM BY SHI SKAGGS MA, ANNOTATI ON/ADDEN DUM Not Available [facility] 4 14:53:45 Bipolar I disorder 520573457 Active 2013 FRIEDA Goyal [facility] 8 15:03:43 Backache 243543311 Completed 201209/02/2013 IMPRESSI ON: CALL IN 1 WEEK IF NOT IMPROVIN G. WARNED OF DROWSINE SS WITH VICODIN AND FLEXERIL ; RECORDED 09/25/19 13 4:19PM BY NYDIA CHRISTIANSEN MA, ANNOTATI ON/ADDEN DUM Idalmis prajapati [facility] 7 16:11:29 Clostrid ioides difficil e infectio n 197414599 Completed 201109/02/2013 IMPRESSI ON: RESOLVED WITH TX, PT TO KEEP ON PROBIOTI C FOR A FEW MORE WEEKS TO RESOTRE KERMIT TO NORMAL.; RECORDED 02/19/20 12 1:39PM BY SHI SKAGGS MA, ANNOTATI ON/ADDEN DUM Not Available [facility] 4 14:53:45 Candidal vulvovag initis 56736141 Completed 200809/02/2013 RECORDED 06/19/19 09 10:27AM BY MELITON FRENCH ON/ADDEN DUM Not Available [facility] 4 14:53:45 Cellulit is and abscess of neck 436300964 Completed 201109/02/2013 RECORDED 02/19/20 12 1:39PM BY SHI SKAGGS MA, ANNOTATI ON/ADDEN DUM Not Available [facility] 4 14:53:45 Screenin g for malignan t neoplasm of cervix Completed 201209/02/2013 RECORDED 09/25/19 13 4:19PM BY NYDIA CHRISTIANSEN MA, ANNOTATI ON/ADDEN DUM Not Available [facility] 4 14:53:45 Disorder of coccyx 76440204 Completed 201303/30/2016 IMPRESSI ON: PAIN FORM FALL NO XRAY NEEDED, TIME AND MOTRIN; RECORDED 06/21/19 14 2:38PM BY SHI SKAGGS MA, OFFICE VISIT Idalmis prajapati [facility] 7 16:12:05 Colitis, enteriti s and gastroen teritis presumed infectio us 810132478 Completed 201109/02/2013 RECORDED 02/19/20 12 1:39PM BY SHI SKAGGS MA, MELITON ON/ADDEN DUM Not Available [facility] 4 14:53:45 Conjunct ivitis 5769635 Completed 201109/02/2013 RECORDED 02/19/20 12 1:39PM BY SHI SKAGGS MA, KIKAATI ON/ADDEN DUM Not Available [facility] 4 14:53:45 Seborrhe ic dermatit is 43372590 Completed 201109/02/2013 IMPRESSI ON: WITH DRY SCALP. PT REASSURE D. SHE WILL CHANGE SHAMPOOS (TRIAL OF T-GEL NEUTRAGE NA), WASH HAIR EVERY OTHER DAY. IF NEEDED SHE WILL USE PO ANTIHIST AMINES. PTS QUESTION S ANSWERED , FEELS BETTER ABOUT SXS. TO CONTACT OFFICE PRN.; RECORDED 02/19/20 12 1:39PM BY SHI SKAGGS MA, MELITON ON/ADDEN DUM Not Available [facility] 4 14:53:45 History of depressi on 442245139 Completed 201309/02/2013 RECORDED 06/21/19 14 2:38PM BY SHI SKAGGS MA, MELITON ON/ADDEN DUM Not Available [facility] 4 14:53:45 Diarrhea 53293910 Completed 201209/02/2013 IMPRESSI ON: NEW PROBLEM, PT WILL SEE DR MARION FOR EVAL,; RECORDED 01/11/20 13 10:05AM BY SHI SKAGGS MA, KIKAATI ON/ADDEN DUM Not Available [facility] 4 14:53:45 Hearing loss 16233754 Completed 201109/02/2013 RECORDED 02/19/20 12 1:39PM BY SHI SKAGGS MA, KIKAATI ON/ADDEN DUM Not Available [facility] 4 14:53:45 Dysfunct ional uterine bleeding Completed 201109/02/2013 RECORDED 02/19/20 12 1:39PM BY SHI SKAGGS MA, MELITON ON/ADDEN DUM Brendan Duarte-FRIEDA Live [place] [facility] 8 15:03:51 Dysmenor rocael 186337413 Completed 201209/02/2013 IMPRESSI ON: NL EXAM PAP AND CXS TODAY; RECORDED 09/25/19 13 4:19PM BY NYDIA CHRISTIANSEN MA, KIKAATI ON/ADDEN DUM Not Available [facility] 4 14:53:46 Dysuria 56321423 Completed 201109/02/2013 RECORDED 02/19/20 12 1:39PM BY SHI SKAGGS MA, ANNOTATI ON/ADDEN DUM Not Available [facility] 4 14:53:46 Disorder of cardiova scular system 08238566 Completed 201109/02/2013 RECORDED 02/19/20 12 1:39PM BY SHI SKAGGS MA ANNOTATI ON/ADDEN DUM Not Available [facility] 4 14:53:46 Fall on or from stairs or steps Completed 201209/02/2013 RECORDED 09/25/19 13 4:19PM BY NYDIA CHRISTIANSEN MA, ANNOTATI ON/ADDEN DUM Not Available [facility] 4 14:53:46 Family history of breast cancer 939775618 Completed 201109/02/2013 IMPRESSI ON: REVIEWED RE[facility] AT [facility], TESTING NOT THOUGHT TO BE NECESSAR Y, WILL START MAMMO AT 39 AND PT TO LEARN TO DO SELF BREAST EXAM; RECORDED 02/19/20 12 1:39PM BY SHI SKAGGS MA, ANNOTATI ON/ADDEN DUM Not Available [facility] 4 14:53:46 Influenz a vaccine needed 34982026434 06 Completed 201209/02/2013 RECORDED 10/26/19 13 2:51PM BY JUDIE BOTELLO, OFFICE VISIT Not Available [facility] 4 14:53:46 Closed fracture of radius 107407732 Completed 201109/02/2013 RECORDED 02/19/20 12 1:39PM BY SHI KAYCEE, MA, ANNOTATI ON/ADDEN DUM Not Available [facility] 4 14:53:46 Adult health examinat ion Completed 201309/02/2013 IMPRESSI ON: NOT DUE FOR A PAP, BREAST EXAM TODAY, INCREASE EXERCISE ; RECORDED 06/21/19 14 2:37PM BY SHI SKAGGS MA, KIKAATI ON/ADDEN DUM Not Available [facility] 4 14:53:46 General examinat ion of patient Completed 200809/02/2013 IMPRESSI ON: PAP TODAY, GOING BACK TO SCHOOL; RECORDED 06/19/19 09 10:27AM BY MELITON FRENCH ON/ADDEN DUM Not Available [facility] 4 14:53:46 Well child 071227264 Completed 201109/02/2013 RECORDED 02/19/20 12 1:39PM BY SHI SKAGGS MA, KIKAATI ON/ADDEN DUM Not Available [facility] 4 14:53:46 Hip pain 32800666 Completed 201303/30/2016 IMPRESSI ON: FELL 10 DAYS AGO, PAIN IN BILATERA L HIPS, WILL GET XRAY TO RULE OUT FRACTURE THOUGH UNLIKELY MOTRINA ND REST; RECORDED 06/21/19 14 2:38PM BY SHI SKAGGS MA, OFFICE VISIT Idalmis prajapati [facility] 7 16:11:59 Impacted cerumen 40578890 Completed 201303/29/2016 IMPRESSI ON: EAR LAVAGE PERFORME D, CERUMEN REMOVED; RECORDED 06/21/19 14 4:08PM BY AMARILIS PATEL, OFFICE VISIT FRIEDA French [facility] 7 15:01:56 Ingrowin g nail 490571687 Completed 201109/02/2013 IMPRESSI ON: SOAK FOOT WARM WATER MULTIPLE TIMES A DAY PODIATRY APPT IN CASE NEEDS PARTIAL NAIL REMOVAL. SHE WILL CANCEL APPT IF BETTER.; RECORDED 02/19/20 12 1:39PM BY SHI SKAGGS MA, MELITON ON/ADDEN DUM Not Available [facility] 4 14:53:47 Insomnia 430444628 Completed 201303/30/2016 IMPRESSI ON: BETTER MEDS HELPING; RECORDED 06/21/19 14 2:38PM BY SHI SKAGGS MA, OFFICE VISIT Idalmis prajapati, [facility] 7 16:11:37 Low back pain 292276570 Completed 201309/02/2013 IMPRESSI ON: FOR MONTHS, HX OF A FEW FALLS, PT TO SET UP PT ORDER TO PT TODAY; RECORDED 06/21/19 14 2:38PM BY SHI SKAGGS MA ANNOTMANAN ON/ADDEN DUM FRIEDA French, [facility] 7 15:02:14 Lymphade nopathy 65000139 Completed 201109/02/2013 IMPRESSI ON: BILAT, SCALP WITH SKIN LESION CAUSING LEFT OCCIPITA L NODE INVOLVEM ENT; RECORDED 02/19/20 12 1:39PM BY SHI SKAGGS MA, MELITON ON/ADDEN DUM Not Available [facility] 4 14:53:47 Single major depressi ve episode Completed 201311/23/2016 IMPRESSI ON: ON MEDS BUT DEPRESSI ON IS ACTIVE, CONTINUE MEDS AND PSYCHIAT RY AND COUNSELI NG VISITS; RECORDED 06/21/19 14 2:38PM BY SHI SKAGGS MA, OFFICE VISIT Idalmis prajapati, [facility] 7 13:39:20 Malaise and fatigue 168057559 Completed 201109/02/2013 IMPRESSI ON: ON MEDS BY PSYCHIAT RIST AND IN COUNSELI NG WEEKLY; RECORDED 02/19/20 12 1:40PM BY SHI SKAGGS MA, ANNOTATI ON/ADDEN DUM Not Available [facility] 4 14:53:47 Blisters of multiple sites 095148125 Completed 201109/02/2013 RECORDED 02/19/20 12 1:39PM BY SHI SKAGGS MA, ANNOTMANAN ON/ADDEN DUM Not Available [facility] 4 14:53:47 Administ ration of bacteria l and viral vaccine Completed 200709/02/2013 RECORDED 01/09/20 08 12:58PM BY DEBBI COCHRAN, OFFICE VISIT Not Available [facility] 4 14:53:47 Neoplasm of uncertai n behavior of skin 41084995 Completed 201303/30/2016 IMPRESSI ON: NODULE IN EAR WITH TELENGIE CTASIA CONCERNI NG FOR MALIGNAN CY. ENT TO FURTHER ASSESS; RECORDED 06/21/19 14 4:06PM BY AMARILIS PATEL, OFFICE VISIT Idalmis prajapati [facility] 7 16:12:10 Patient status finding [id number] Completed 201303/29/2016 RECORDED 06/21/19 14 2:38PM BY SHI SKAGGS MA, OFFICE VISIT FRIEDA French, [facility] 7 15:01:47 Herpetic gingivos tomatiti s 27482743 Completed 201109/02/2013 IMPRESSI ON: TX WITH DENAVIR; RECORDED 02/19/20 12 1:39PM BY SHI SKAGGS MA, ANNOTATI ON/ADDEN DUM Not Available [facility] 4 14:53:47 Insomnia 186144341 Completed 201109/02/2013 RECORDED 02/19/20 12 1:39PM BY SHI SKAGGS MA, ANNOTATI ON/ADDEN DUM Idalmis prajapati [facility] 7 16:11:37 Otalgia 81067198 Completed 201109/02/2013 IMPRESSI ON: X 3 DAYS, NO INFECTIO N, SUSPECT JAW JOINT INFLAMMA TION; RECORDED 02/19/20 12 1:40PM BY SHI SKAGGS MA, ANNOTATI ON/ADDEN DUM Not Available [facility] 4 14:53:48 Otitis media 05867331 Completed 201303/29/2016 IMPRESSI ON: UNCLEAR IF REALLY INFECTED . SHE WILL DO FLONASE AND MUCINEX- D FOR 2 DAYS. IF NOT BETTER, SHE WILL START ABX; RECORDED 06/21/19 14 4:08PM BY AMARILIS PATEL, OFFICE VISIT FRIEDA French, [facility] 7 15:02:45 Otitis media 43108152 Completed 201109/02/2013 IMPRESSI ON: RESOLVED OM; RECORDED 02/19/20 12 1:39PM BY SHI SKAGGS MA, ANNOTATI ON/ADDEN DUM FRIEDA French, [facility] 7 15:02:45 Pneumoni a 335745516 Completed 201109/02/2013 IMPRESSI ON: IMPROVED ON LEVAQUIN , PREDNISO NE AND INHALERS IN PT WITH ASTHMA, WILL GET REPEAT CXT [facility] IN A WEEK,; RECORDED 02/19/20 12 1:40PM BY SHI SKAGGS MA, ANNOTATI ON/ADDEN DUM Not Available [facility] 4 14:53:48 Secondar y polycyth emia 02586963 Completed 201109/02/2013 IMPRESSI ON: PT SEEN YEST FOR ATYPICAL ECCHYMOT IC LESIONS. LABS DONE AND HGB TRENDING UP. TO HEM/ONC FOR FURTHER ASSESSME NT. NOT A SMOKER. CASE DISCUSSE D WITH DR. AARON Ramsay; RECORDED 02/19/20 12 1:39PM BY SHI SKAGGS MA, ANNOTATI ON/ADDEN DUM Not Available [facility] 4 14:53:48 History of psychiat chiki disorder 519379224 Completed 201303/30/2016 RECORDED 06/21/19 14 2:38PM BY SHI SKAGGS MA, OFFICE VISIT Idalmis prajapati, [facility] 7 16:11:26 Eruption [id number] Completed 201209/02/2013 IMPRESSI ON: FROM PICKING HER HEAD WITH NERVES, NO INFECTIO N, TREAT WITH CREAM; RECORDED 01/11/20 13 10:05AM BY SHI SKAGGS MA, KIKAATI ON/ADDEN DUM FRIEDA French, [facility] 7 15:02:11 Pain in limb 03380574 Completed 201209/02/2013 IMPRESSI ON: LIKELY CONTUSIO N WILL MAKE SURE NO FRACTURE ; RECORDED 09/25/19 13 4:19PM BY NYDIA CHRISTIANSEN MA, ANNOTATI ON/ADDEN DUM Not Available [facility] 4 14:53:48 Right upper quadrant pain 972126721 Completed 201109/02/2013 IMPRESSI ON: THE ECCHYMOT IC [...] SKAGGS MA, ANNOTATI ON/ADDEN DUM Not Available [facility] 4 14:53:48 Speciali regan medical examinat ion Completed 200809/02/2013 RECORDED 06/19/19 09 10:27AM BY MELITON FRENCH ON/ADDEN DUM Not Available [facility] 4 14:53:48 Disorder of skin and/or subcutan eous tissue 92389141 Completed 201209/02/2013 IMPRESSI ON: SKIN OF VULVA WITH 6 REDDISH LESIONS SEEMS LIKE VASCULAR LESIONS BUT WILL HAVE DERM CHECK OUT; RECORDED 09/25/19 13 4:19PM BY NYDIA CHRISTIANSEN MA, KIKAATI ON/ADDEN DUM Not Available [facility] 4 14:53:48 Sprain of shoulder and upper arm Completed 201109/02/2013 RECORDED 02/19/20 12 1:39PM BY SHI SKAGGS MA, ANNOTATI ON/ADDEN DUM Not Available [facility] 4 14:53:48 Acute tonsilli tis 20952969 Completed 201209/02/2013 IMPRESSI ON: NEG QUICK STREP; RECORDED 03/06/19 13 1:55PM BY NYDIA CHRISTIANSEN MA, ANNOTATI ON/ADDEN DUM Not Available [facility] 4 14:53:49 Acute upper respirat ory infectio n 03080275 Completed 201303/29/2016 RECORDED 06/21/19 14 3:30PM BY AMARILIS PATEL, OFFICE VISIT FRIEDA French, [facility] 7 15:02:38 Urinary tract infectio us disease 46529517 Completed 200809/02/2013 RECORDED 05/30/19 09 3:02PM BY BRENDAN COCHRAN MA, MELITON ON/ADDEN DUM Not Available [facility] 4 14:53:49 Vaginiti s and vulvovag initis Completed 201109/02/2013 RECORDED 02/19/20 12 1:39PM BY SHI SKAGGS MA, ANNOTATI ON/ADDEN DUM Not Available [facility] 4 14:53:49 Anxiety 87085306 Completed 03/30/2016 Idalmis prajapati [facility] 7 16:11:56 Chest pain 50705258 Completed 03/30/2016 Idalmis prajapati [facility] 7 16:11:52 Abdomina l pain 14637765 Completed 03/29/2016 FRIEDA French [facility] 7 15:02:04 Abdomina l pain 46802491 Completed 201109/29/2013 RECORDED 02/19/20 12 1:39PM BY SHI SKAGGS MA, MELITON ON/ADDEN DUM FRIEDA French [facility] 7 15:02:04 Acute pharyngi tis 937606051 Completed 200709/29/2013 IMPRESSI ON: NEG QUICK STREP, SEND CX; RECORDED 01/09/20 08 12:57PM BY MELITON MATHEWS ON/ADDEN DUM Not Available [facility] 4 05:37:57 Acute non-supp urative serous otitis media 869196734 Completed 201109/29/2013 IMPRESSI ON: RESOLVED INFECTIO N WITH TRACI. HASTEN RESOLUTI ON WITH FLONASE. REASSURE D INFECTIO N RESOLVED .; RECORDED 02/19/20 12 1:39PM BY SHI SKAGGS MA, ANNOTATI ON/ADDEN DUM Not Available [facility] 4 05:37:57 Chronic alcoholi sm in [facility] 364300280 Completed 201109/29/2013 IMPRESSI ON: NOT DRINKING , PIKE BEEN IN [facility], YEARS AGO ALCOHOL ABUSE WAS AN ISSUE AND COMPLICA DANICA HER MENTAL HEALTH TREATMEN T; RECORDED 02/19/20 12 1:40PM BY SHI SKAGGS MA, ANNOTATI ON/ADDEN DUM Not Available [facility] 4 05:37:57 Patient status finding [id number] Completed 201209/29/2013 RECORDED 06/06/19 13 11:40AM BY NYDIA CHRISTIANSEN MA, ANNOTATI ON/ADDEN DUM FRIEDA French [facility] 7 15:01:47 Acute asthma 675856756 Completed 201109/29/2013 RECORDED 02/19/20 12 1:39PM BY SHI SKAGGS MA ANNOTATI ON/ADDEN DUM Not Available [facility] 4 05:37:58 Backache [id number] Completed 201209/29/2013 IMPRESSI ON: CALL IN 1 WEEK IF NOT IMPROVIN G. WARNED OF DROWSINE SS WITH VICODIN AND FLEXERIL ; RECORDED 09/25/19 13 4:19PM BY NYDIA CHRISTIANSEN MA, ANNOTATI ON/ADDEN DUM Idalmis prajapati [facility] 7 16:11:29 Clostrid ioides difficil e infectio n [id number] Completed 201109/29/2013 IMPRESSI ON: RESOLVED WITH TX, PT TO KEEP ON PROBIOTI C FOR A FEW MORE WEEKS TO RESOTRE KERMIT TO NORMAL.; RECORDED 02/19/20 12 1:39PM BY SHI SKAGGS MA, ANNOTATI ON/ADDEN DUM Not Available [facility] 4 05:37:58 Candidal vulvovag initis 07179837 Completed 200809/29/2013 RECORDED 06/19/19 09 10:27AM BY JUDIE BOTELLO, KIKAATI ON/ADDEN DUM Not Available [facility] 4 05:37:58 Cellulit is and abscess of neck 837173290 Completed 201109/29/2013 RECORDED 02/19/20 12 1:39PM BY SHI SKAGGS MA, ANNOTATI ON/ADDEN DUM Not Available [facility] 4 05:37:58 Screenin g for malignan t neoplasm of cervix Completed 201209/29/2013 RECORDED 09/25/19 13 4:19PM BY NYDIA CHRISTIANSEN MA, ANNOTATI ON/ADDEN DUM Not Available [facility] 4 05:37:58 Colitis, enteriti s and gastroen teritis presumed infectio us 026743116 Completed 201109/29/2013 RECORDED 02/19/20 12 1:39PM BY SHI SKAGGS MA, ANNOTATI ON/ADDEN DUM Not Available [facility] 4 05:37:58 Conjunct ivitis 6309342 Completed 201109/29/2013 RECORDED 02/19/20 12 1:39PM BY SHI SKAGGS MA, ANNOTATI ON/ADDEN DUM Not Available [facility] 4 05:37:58 Seborrhe ic dermatit is 76536778 Completed 201109/29/2013 IMPRESSI ON: WITH DRY SCALP. PT REASSURE D. SHE WILL CHANGE SHAMPOOS (TRIAL OF T-GEL NEUTRAGE NA), WASH HAIR EVERY OTHER DAY. IF NEEDED SHE WILL USE PO ANTIHIST AMINES. PTS QUESTION S ANSWERED , FEELS BETTER ABOUT SXS. TO CONTACT OFFICE PRN.; RECORDED 02/19/20 12 1:39PM BY SHI SKAGGS MA, ANNOTATI ON/ADDEN DUM Not Available [facility] 4 05:37:58 History of depressi on [id number] Completed 201309/29/2013 RECORDED 06/21/19 14 2:38PM BY SHI SKAGGS MA, MELITON ON/ADDEN DUM Not Available [facility] 4 05:37:58 Diarrhea 35804249 Completed 201209/29/2013 IMPRESSI ON: NEW PROBLEM, PT WILL SEE DR MARION FOR EVAL,; RECORDED 01/11/20 13 10:05AM BY SHI SKAGGS MA, KIKAATI ON/ADDEN DUM Not Available [facility] 4 05:37:58 Hearing loss 88274221 Completed 201109/29/2013 RECORDED 02/19/20 12 1:39PM BY SHI SKAGGS MA, ANNOTATI ON/ADDEN DUM Not Available [facility] 4 05:37:58 Dysfunct ional uterine bleeding Completed 201109/29/2013 RECORDED 02/19/20 12 1:39PM BY SHI SKAGGS MA, ANNOTATI ON/ADDEN DUM [facility] FRIEDA varela [place] [facility] 8 15:03:51 Dysmenor rocael [id number] Completed 201209/29/2013 IMPRESSI ON: NL EXAM PAP AND CXS TODAY; RECORDED 09/25/19 13 4:19PM BY NYDIA CHRISTIANSEN MA, ANNOTATI ON/ADDEN DUM Not Available [facility] 4 05:37:58 Dysuria 62842437 Completed 201109/29/2013 RECORDED 02/19/20 12 1:39PM BY SHI SKAGGS MA, ANNOTATI ON/ADDEN DUM Not Available [facility] 4 05:37:58 Disorder of cardiova scular system 36614462 Completed 201109/29/2013 RECORDED 02/19/20 12 1:39PM BY SHI SKAGGS MA, ANNOTATI ON/ADDEN DUM Not Available [facility] 4 05:37:58 Fall on or from stairs or steps Completed 201209/29/2013 RECORDED 09/25/19 13 4:19PM BY NYDIA CHRISTIANSEN MA ANNOTMANAN ON/ADDEN DUM Not Available [facility] 4 05:37:58 Family history of breast cancer [id number] Completed 201109/29/2013 IMPRESSI ON: REVIEWED [facility], TESTING NOT THOUGHT TO BE NECESSAR Y, WILL START MAMMO AT 39 AND PT TO LEARN TO DO SELF BREAST EXAM; RECORDED 02/19/20 12 1:39PM BY SHI SKAGGS MA, MELITON ON/ADDEN DUM Not Available [facility] 4 05:37:58 Influenz a vaccine needed [id number] 06 Completed 201209/29/2013 RECORDED 10/26/19 13 2:51PM BY JUDIE BOTELLO, OFFICE VISIT Not Available [facility] 4 05:37:58 Closed fracture of radius 699969678 Completed 201109/29/2013 RECORDED 02/19/20 12 1:39PM BY SHI SKAGGS MA, MELITON ON/ADDEN DUM Not Available [facility] 4 05:37:58 Adult health examinat ion Completed 201309/29/2013 IMPRESSI ON: NOT DUE FOR A PAP, BREAST EXAM TODAY, INCREASE EXERCISE ; RECORDED 06/21/19 14 2:37PM BY SHI SKAGGS MA, MELITON ON/ADDEN DUM Not Available [facility] 4 05:37:58 General examinat ion of patient Completed 200809/29/2013 IMPRESSI ON: PAP TODAY, GOING BACK TO SCHOOL; RECORDED 06/19/19 09 10:27AM BY MELITON FRENCH ON/ADDEN DUM Not Available [facility] 4 05:37:58 Well child [id number] Completed 201109/29/2013 RECORDED 02/19/20 12 1:39PM BY SHI SKAGGS MA, MELITON ON/ADDEN DUM Not Available [facility] 4 05:37:58 Ingrowin g nail 699309860 Completed 201109/29/2013 IMPRESSI ON: SOAK FOOT WARM WATER MULTIPLE TIMES A DAY PODIATRY APPT IN CASE NEEDS PARTIAL NAIL REMOVAL. SHE WILL CANCEL APPT IF BETTER.; RECORDED 02/19/20 12 1:39PM BY SHI SKAGGS MA, ANNOTATI ON/ADDEN DUM Not Available [facility] 4 05:37:58 Low back pain 446391334 Completed 201309/29/2013 IMPRESSI ON: FOR MONTHS, HX OF A FEW FALLS, PT TO SET UP PT ORDER TO PT TODAY; RECORDED 06/21/19 14 2:38PM BY SHI SKAGGS MA, ANNOTATI ON/ADDEN DUM FRIEDA French MA [facility] 7 15:02:14 Lymphade nopathy 19285789 Completed 201109/29/2013 IMPRESSI ON: BILAT, SCALP WITH SKIN LESION CAUSING LEFT OCCIPITA L NODE INVOLVEM ENT; RECORDED 02/19/20 12 1:39PM BY SHI SKAGGS MA, ANNOTATI ON/ADDEN DUM Not Available [facility] 4 05:37:58 Malaise and fatigue 868004938 Completed 201109/29/2013 IMPRESSI ON: ON MEDS BY CHERYL MASON AND IN COUNSELI NG WEEKLY; RECORDED 02/19/20 12 1:40PM BY SHI SKAGGS MA, ANNOTATI ON/ADDEN DUM Not Available [facility] 4 05:37:58 Blisters of multiple sites 133393497 Completed 201109/29/2013 RECORDED 02/19/20 12 1:39PM BY SHI SKAGGS MA, ANNOTATI ON/ADDEN DUM Not Available [facility] 4 05:37:58 Administ ration of bacteria l and viral vaccine Completed 200709/29/2013 RECORDED 01/09/20 08 12:58PM BY DEBBI COCHRAN, OFFICE VISIT Not Available [facility] 4 05:37:58 Herpetic gingivos tomatiti s 57322150 Completed 201109/29/2013 IMPRESSI ON: TX WITH DENAVIR; RECORDED 02/19/20 12 1:39PM BY SHI SKAGGS MA, ANNOTATI ON/ADDEN DUM Not Available [facility] 4 05:37:58 Otalgia 93318826 Completed 201109/29/2013 IMPRESSI ON: X 3 DAYS, NO INFECTIO N, SUSPECT JAW JOINT INFLAMMA TION; RECORDED 02/19/20 12 1:40PM BY SHI SKAGGS MA, ANNOTATI ON/ADDEN DUM Not Available [facility] 4 05:37:58 Pneumoni a 600186956 Completed 201109/29/2013 IMPRESSI ON: IMPROVED ON LEVAQUIN , PREDNISO NE AND INHALERS IN PT WITH ASTHMA, WILL GET REPEAT CXT [facility] IN A WEEK,; RECORDED 02/19/20 12 1:40PM BY SHI SKAGGS MA, ANNOTATI ON/ADDEN DUM Not Available [facility] 4 05:37:59 Secondar y polycyth emia 88371674 Completed 201109/29/2013 IMPRESSI ON: PT SEEN YEST FOR ATYPICAL ECCHYMOT IC LESIONS. LABS DONE AND HGB TRENDING UP. TO HEM/ONC FOR FURTHER ASSESSME NT. NOT A SMOKER. CASE DISCUSSE D WITH DR. AARON Ramsay; RECORDED 02/19/20 12 1:39PM BY SHI SKAGGS MA, ANNOTATI ON/ADDEN DUM Not Available [facility] 4 05:37:59 Eruption [id number] Completed 201209/29/2013 IMPRESSI ON: FROM PICKING HER HEAD WITH NERVES, NO INFECTIO N, TREAT WITH CREAM; RECORDED 01/11/20 13 10:05AM BY SHI SKAGGS MA, ANNOTATI ON/ADDEN DUM FRIEDA French [place] [facility] 7 15:02:11 Pain in limb 98298334 Completed 201209/29/2013 IMPRESSI ON: LIKELY CONTUSIO N WILL MAKE SURE NO FRACTURE ; RECORDED 09/25/19 13 4:19PM BY NYDIA CHRISTIANSEN MA, ANNOTATI ON/ADDEN DUM Not Available [facility] 4 05:37:59 Right upper quadrant pain 008639538 Completed 201109/29/2013 IMPRESSI ON: THE ECCHYMOT IC [...] SKAGGS MA, MELITON ON/ADDEN DUM Not Available [facility] 4 05:37:59 Speciali regan medical examinat ion Completed 200809/29/2013 RECORDED 06/19/19 09 10:27AM BY KIKA FRENCHATI ON/ADDEN DUM Not Available [facility] 4 05:37:59 Disorder of skin and/or subcutan eous tissue 36336926 Completed 201209/29/2013 IMPRESSI ON: SKIN OF VULVA WITH 6 REDDISH LESIONS SEEMS LIKE VASCULAR LESIONS BUT WILL HAVE DERM CHECK OUT; RECORDED 09/25/19 13 4:19PM BY NYDIA CHRISTIANSEN MA, KIKAATI ON/ADDEN DUM Not Available [facility] 4 05:37:59 Sprain of shoulder and upper arm Completed 201109/29/2013 RECORDED 02/19/20 12 1:39PM BY SHI SKAGGS MA, ANNOTATI ON/ADDEN DUM Not Available [facility] 4 05:37:59 Acute tonsilli tis 82873004 Completed 201209/29/2013 IMPRESSI ON: NEG QUICK STREP; RECORDED 03/06/19 13 1:55PM BY NYDIA CHRISTIANSEN MA, ANNOTATI ON/ADDEN DUM Not Available [facility] 4 05:37:59 Urinary tract infectio us disease 68395098 Completed 200809/29/2013 RECORDED 05/30/19 09 3:02PM BY BRENDAN COCHRAN MA, KIKAATI ON/ADDEN DUM Not Available [facility] 4 05:37:59 Vaginiti s and vulvovag initis Completed 201109/29/2013 RECORDED 02/19/20 12 1:39PM BY SHI SKAGGS MA, KIKAATI ON/ADDEN DUM Not Available [facility] 4 05:37:59 Infestat ion by Sarcopte s scabiei elle hominis 542491865 Completed 03/30/2016 Idalmis prajapati [facility] 7 16:11:16 Eruption 543304283 Completed 03/29/2016 FRIEDA French [facility] 7 15:02:11 White blood cell count outside referenc e range 660689476 Completed 03/30/2016 Idalmis prajapati [facility] 7 16:11:34 Backache 328033582 Completed 03/30/2016 Idalmis prajapati [facility] 7 16:11:29 Tinea corporis 86938485 Completed 03/30/2016 IdalmisRey prajapati [facility] 7 16:12:07 Pain in throat 048391307 Completed 03/30/2016 IdalmisRey prajapati [facility] 7 16:11:32 Sciatica 33978208 Completed 03/30/2016 Idalmis prajapati [facility] 7 16:11:42 Low back pain 737682444 Completed 03/29/2016 FRIEDA French [facility] 7 15:02:14 Pain in lower limb 33810796 Completed 03/29/2016 FRIEDA French [facility] 7 15:01:44 Infectio n of toe 790658131 Completed 03/29/2016 FRIEDA French [facility] 7 15:02:24 Lacerati on of toe 245083486 Completed 03/29/2016 FRIEDA French [facility] 7 15:02:17 Infectio n of foot 473080252 Completed 03/29/2016 FRIEDA French, [facility] 7 15:02:28 Slurred speech 518062905 Completed 03/29/2016 FRIEDA French, [facility] 7 15:02:20 Headache 68420946 Completed 03/30/2016 Idalmis nicolas null, [facility] 7 16:11:45 Dysfunct ional uterine bleeding Active 2016 FRIEDA Goyal, [facility] 8 15:03:51 Hypothyr oidism 20988027 Active 2017 FRIEDA Goyal, [facility] 8 15:04:12 History of Intestin al infectio n caused by Clostrid ioides difficil e 17541882235 9101 Completed 201704/10/2023 RENUKA RAMÍREZ MD [address] [facility] [address], [facility] F[place], [address] , [facility] 4 08:20:32 Mild intermit tent asthma 480277734 Active 2019 Idalmis nicolas null, [facility] 0 10:09:22 Eczema 78515194 Active 2020 Judie Botello MA null, [facility] 1 15:05:27 Psoriasi s 9650611 Active 2022 Dominga Jameson null, [facility] 3 07:52:52 Irritabl e bowel syndrome with diarrhea 461097028 Active 2022 Dominga Becerraapemelissa null, [facility] 3 07:53:26 Tachycar chance 5100377 Active FRIEDA French, [facility] 4 14:41:33 Problem Notes None recorded. Procedures Surgical History Date Name Laterality Status Provider Name and Address Organization Details Recorded Time 05/16/19 25 Most Recent Mammogram completed Katharina Alvarez [facility] 05/16/2024 12:53:24 05/16/19 25 Mammogram screening completed Katharina Alvarez [facility] 05/16/2024 12:53:06 07/15/19 23 Dressing Change completed RENUKA RAMÍREZ MD [address], [address], [facility] 07/14/2022 07:44:40 06/20/19 23 Suture/Staple removal completed RENUKA RAMÍREZ MD [address], [address], [facility] 06/19/2022 10:34:36 06/17/19 23 Suture/Staple removal completed RENUKA RAMÍREZ MD [address], [address], [facility] 06/15/2022 09:30:10 12/21/19 21 Date of Last Pap Smear completed Judie Botello MA [facility] 12/22/2020 11:07:59 05/03/19 19 Mini-Cog Test completed Judie Botello MA [facility] 05/02/2018 08:44:28 07/25/19 17 Mini-Cog Test completed Judie Botello MA [facility] 07/24/2016 14:56:47 10/01/19 16 Suture/Staple removal completed Estrellita Pitt PA-C [address], [address], [facility] 10/01/2015 14:56:47 Tonsillectomy completed Shi Skaggs [facility] 09/04/2013 15:46:02 Imaging Results Imaging Date Name Status LastModified by Organization Details LastModified Time 08/14/2023 electrocardiogram completed In-Offi ce Order Internal Use Only DO Not Attach Compendium DO Not Attach Compendium, Do Not Delete/merge, [id number] 08/14/2023 12:42:32 08/13/2023 electrocardiogram completed In-Offi ce Order Internal Use Only DO Not Attach Compendium DO Not Attach Compendium, Do Not Delete/merge, [id number] 08/13/2023 15:54:01 01/02/2024 MRI, brain, w/o contrast completed [facility] [address], [place], [address], 01/06/2024 16:17:03 05/15/2024 MAMMO, screening, digital, bilateral completed [facility] [address], [place], [address], 05/15/2024 16:37:09 05/15/2024 MAMMO, screening, digital, bilateral completed [facility] (Outpt [facility]) [address] [place], [address], 05/16/2024 12:53:29 Procedure Notes None recorded. Medical Equipment None Reported. Allergies Allergen ID Allergen Name Allergen Category Reaction Reaction Severity Criticality Documentation Date Start Date Code Code System Note Provider Name and Address Organization Details Recorded Time 06830 Elimite medicatio n rash Not available Not available 10/22/2013 10265 5 RxNorm Idalmis ortiz [facility] 4 11:49:40 6664 Augmentin medicatio n diarrhea Not available Not available 09/02/20132013 70967 2 RxNorm Brendan madrigal MA [facility] 8 15:06:49 6665 No known allergy (situatio n) Not available Not available Not available Not available 09/02/20132011 87143 6003 SNOMED COMME NT: RECOR DED 11/01 10:34 AM BY SAL VARELA MA, ANNOT ATION /ADDE NDUM; Not Available [facility] 4 13:24:03 Medications Name Sig Start Date [...] 09/18/19 10 8:54AM BY TAO JUAREZ, OFFICE VISIT;[facility] Not Available Not Available Not Available Spiriva [...] Updated DateTime 4 160.02 cm 32.1 kg/m2 47097.6 2 g 98 % 98 % 93 /min 98.7 [degF] 115 mm[Hg] 72 mm[Hg] Judie Botello MA [facility] 4 14:46:23 Date Recorded Body height Body mass index (BMI) Body weight Oxygen saturation Oxygen saturation in Arterial blood by Pulse oximetry Heart rate Body temperature Systolic blood pressure Diastolic blood pressure Provider Name and Address Organization Details Last Updated DateTime 4 160.02 cm 31.9 kg/m2 18400.0 3 g 100 % 100 % 81 /min 98.2 [degF] 118 mm[Hg] 75 mm[Hg] Judie Botello MA [facility] 4 15:23:25 Date Recorded Body height Body mass index (BMI) Body weight Oxygen saturation Oxygen saturation in Arterial blood by Pulse oximetry Heart rate Body temperature Systolic blood pressure Diastolic blood pressure Provider Name and Address Organization Details Last Updated DateTime 4 160.02 cm 32.1 kg/m2 18715.9 2 g 98 % 98 % 87 /min 98.2 [degF] 110 mm[Hg] 76 mm[Hg] Judie Botello MA [facility] 4 09:39:01 Date Recorded Body height Body mass index (BMI) Body weight Oxygen saturation Oxygen saturation in Arterial blood by Pulse oximetry Heart rate Body temperature Systolic blood pressure Diastolic blood pressure Provider Name and Address Organization Details Last Updated DateTime 5 160.02 cm 31.4 kg/m2 53315.9 5 g 99 % 99 % 97 /min 98.2 [degF] 122 mm[Hg] 75 mm[Hg] Judie Botello MA [facility] 5 14:46:57 Date Recorded Body height Body mass index (BMI) Body weight Heart rate Oxygen saturation Oxygen saturation in Arterial blood by Pulse oximetry Body temperature Systolic blood pressure Diastolic blood pressure Provider Name and Address Organization Details Last Updated DateTime 5 160.02 cm 31.5 kg/m2 01169.4 4 g 81 /min 98 % 98 % 98.3 [degF] 110 mm[Hg] 71 mm[Hg] Brendan madrigal [facility] 5 13:55:06 Social History Question Answer Notes LastModified by Organizat ion Details LastModified Time Tobacco Smoking Status Never Smoker Shi prajapati [facility] 09/04/2013 15:53:32 Do You Have An Advance Directive? No Information not available 01/20/2022 What Is Your Level Of Alcohol Consumption? None Information not available 08/27/2020 Is Blood Transfusion Acceptable In An Emergency? Yes [email or web address] Information not available 10/16/2014 What Is Your Level Of Caffeine Consumption? Occasional Seldom Information not available 08/27/2020 How Much Tobacco Do You Chew? None [email or web address] Information not available 08/04/2019 In The 14 [...] available 01/20/2022 Are You Currently Employed? No [email or web address] Information not available 02/15/2015 What Type Of Diet Are You Following? REGULAR Eating Mostly Chicken And Fish [email or web address] Information not available 04/05/2022 Which Illicit Or [...] Take Precautions To Prevent Distracted Driving? Yes [email or web address] Information not available 10/16/2014 How Often Do You Need To Have Someone Help You When You Read Instructions, Pamphlets, Or Other Written Material From Your Doctor Or Pharmacy? Sometimes [email or web address] Information not available 10/16/2014 Have You Served In The ? No Information not available 12/22/2020 Have You Or Anyone In Your Household Had Any Of The Following Symptoms In The Last 14 Days: Sore Throat, Cough, Chills, Body Aches For Unknown Reasons, Shortness Of Breath For Unknown Reasons, Loss Of Smell, Loss Of Taste, Fever At Or Greater Than 100 Degrees Fahrenheit? No [email or web address] Information not available 08/18/2019 Are You Or Anyone In Your Household A Health Care Provider Or Emergency Responder? No [email or web address] Information not available 08/18/2019 To The Best Of Your Knowledge Have You Been In Close Proximity To Any Individual Who Tested Positive For COVID-19? No [email or web address] Information not available 08/18/2019 *AWV ONLY* Are You Presently Prescribed Opioid Medication By PCP Or Specialist? If YES -Provider Assess The Benefit For Other, Non-opioid Pain Therapies Instead, Even If The Patient Does Not Have OUD But Is Possibly At Risk. No [email or web address] Information not available 12/22/2020 Have You Recently Traveled To A [facility] High Risk Area Or Gathering In The Last 10 Days? No [email or web address] Information not available 03/18/2020 What Was The Date Of Your Most Recent Tobacco Screening? 04/12/2023 [email or web address] Information not available 04/12/2023 How Many Children Do You Have? 0 Information not available 08/27/2020 What Is Your Relationship Status? Single Information not available 01/20/2022 Seat Belts Used Routinely Yes Information not available 01/20/2022 Are You Sexually Active? Yes Woman Partner [email or web address] Information not available 02/15/2015 Smoke Alarm In Home Yes Information not available 01/20/2022 At What Age Did You Start Smoking Tobacco? 0 [email or web address] Information not available 08/04/2019 Do You Or Have You Ever Used Smokeless Tobacco? Never Used Smokeless Tobacco [email or web address] Information not available 08/04/2019 How Much Tobacco Do You Smoke? No Information not available 08/04/2019 General Stress Level Medium Information not available 01/20/2022 Do You Use Sunscreen Routinely? Yes [email or web address] Information not available 10/16/2014 Sex: Unknown Functional Status Question Answer Note LastModified by Organizat ion Details LastModified Time Are you able to walk? [email or web address] Information not available 01/20/2022 Are you able to care for yourself? Yes [email or web address] Information not available 02/15/2015 What is your exercise level? Occasional walking 3 x week Information not available 08/27/2020 Mental Status None recorded. Family History Relationship Description Onset Age of this Age Resolved Age Notes LastModified by Organization Details LastModified Time Mother Carcinoma in situ of breast [email or web address] Not available 02/15 11:12:37 Maternal Grandmother Carcinoma in situ of breast Not available 02/15 11:12:37 Maternal Grandfather Myocardial infarction [email or web address] Not available 01/20 11:12:37 Notes:No FH of [...] Details Recorded Time Tdap 6 [facility] 13:24:33 Influenza, split virus, quadrivalent, PF 5 completed Not Available [facility] 03/08/2019 02:22:02 pneumococcal polysaccharide PPV23 5 completed Not Available [facility] 03/08/2019 02:21:42 COVID-19, mRNA, LNP-S, PF, 30 mcg/0.3 mL dose 1 completed FRIEDA Dexter, [facility] 01/20/2022 13:24:02 COVID-19, mRNA, LNP-S, PF, 30 mcg/0.3 mL dose 1 completed FRIEDA Dexter [facility] 01/20/2022 13:24:02 COVID-19, mRNA, LNP-S, PF, 30 mcg/0.3 mL dose 1 completed FRIEDA Dexter, [facility] 01/20/2022 13:24:02 COVID-19, mRNA, LNP-S, bivalent, PF, 30 mcg/0.3 mL dose 2 completed FRIEDA Dexter, [facility] 01/20/2022 13:24:33 Td (adult), 5 Lf tetanus toxoid, preservative free, adsorbed 4 completed FRIEDA Dexter, [facility] 01/20/2022 13:24:33 Influenza, MDCK, quadrivalent, PF 0 completed FRIEDA Dexter, [facility] 01/20/2022 13:24:33 Tdap 3 completed FRIEDA French, [facility] 08/17/2022 11:37:19 Influenza, split virus, quadrivalent, PF 3 completed FRIEDA French, [facility] 04/26/2023 14:40:16 Influenza, split virus, quadrivalent, PF 6 completed Not Available [facility] 03/08/2019 02:22:04 Influenza, split virus, quadrivalent, PF 7 completed Not Available [facility] 03/08/2019 02:22:11 Influenza, split virus, quadrivalent, PF 8 completed Not Available [facility] 03/08/2019 02:22:15 Influenza, split virus, trivalent, PF 4 completed Not Available [facility] 03/08/2019 02:21:57 Influenza, split virus, quadrivalent, PF 9 completed Not Available [facility] 03/08/2019 02:22:10 Influenza, split virus, quadrivalent, PF 1 completed Idalmis prajapati, [facility] 12/22/2020 11:24:47 Meningococcal MCV4O 6 completed Not Available [facility] 09/02/2013 13:58:38 Influenza, split virus, trivalent, preservative 7 completed Not Available [facility] 09/02/2013 13:58:38 Influenza, split virus, trivalent, preservative 8 completed Not Available [facility] 09/02/2013 13:58:38 Tdap 8 completed Not Available [facility] 09/02/2013 13:58:38 Influenza, split virus, trivalent, preservative 0 completed Not Available [facility] 09/02/2013 13:58:38 Influenza, split virus, trivalent, preservative 1 completed Not Available [facility] 09/02/2013 13:58:38 Influenza, split virus, trivalent, preservative 2 completed Not Available [facility] 09/02/2013 13:58:38 influenza, seasonal, intradermal, preservative free 3 completed Not Available [facility] 09/02/2013 13:58:38 Influenza, split virus, quadrivalent, PF 2 completed Idalmis prajapati, [facility] 12/01/2021 10:15:17 Influenza, split virus, trivalent, PF 4 completed RENUKA RMAÍREZ MD [address], [address], [facility] 12/21/2023 19:00:12 Past Encounters Encounter ID Performer Location Encounter Start Date Encounter Closed Date Diagnosis/Indication Diagnosis SNOMED-CT Code Diagnosis ICD10 Code Diagnosis Note [id number] Shitrinity Skaggs Main [facility] [address] [address] 09/04/2013 15:31:37 09/04/2013 17:14:27 Anxiety 44164731 Chest pain 50614376 Abdominal pain 24944226 [id number] [employer]Comm erce [address] [facility] [place] [address] 04/06/2006 00:00:00 [id number] [employer] erce [address] [facility] [place] [address] 07/20/2005 00:00:00 [id number] [address] [address] [place] [address] 08/09/2005 00:00:00 [id number] [employer] [address] [place] [address] 08/24/2005 00:00:00 [id number] [employer] [address] [place] [address] 07/04/2006 00:00:00 [id number] [employer] [address] [place] [address] 07/11/2006 00:00:00 [id number] [employer] [address] [place] [address] 2 09/18/2006 00:00:00 [id number] [employer] [address] [facility],[address] [place] [address] 2 12/17/2006 00:00:00 [id number] [employer] [address] [facility],[address] [place] [address] 2 12/24/2006 00:00:00 [id number] [employer] [address] [facility],[address] [place] [address] 2 03/20/2007 00:00:00 [id number] [employer] [address] [facility],[address] [place] [address] 2 06/14/2007 00:00:00 [id number] [employer] [address] [facility],[address] [place] [address] 2 07/04/2007 00:00:00 [id number] [employer] [address] [facility],[address] [place] [address] 2 01/09/2008 00:00:00 [id number] [employer] [address] [facility] [address] [place] [address] 05/29/2008 00:00:00 [id number] [employer] [address] [facility],[address] [place] [address] 2 06/18/2008 00:00:00 [id number] [employer] [address] [place] [address] 2 09/24/2008 00:00:00 [id number] [employer] [address] [place] [address] 2 10/05/2008 00:00:00 [id number] [employer] [address] [place] [address] 2 11/26/2008 00:00:00 [id number] [employer] [address] [place] [address] 2 01/13/2009 00:00:00 [id number] [employer] [address] [place] [address] 2 05/13/2009 00:00:00 [id number] [employer] [address] [facility],[address] [place] [address] 2 06/16/2009 00:00:00 77702 [employer] [address] [facility] [address] [place] [address] 2 07/26/2009 00:00:00 [id number] [employer] [address] [facility],[address] [place] [address] 2 09/17/2009 00:00:00 [id number] [employer] [address] [facility],[address] [place] [address] 2 01/05/2010 00:00:00 [id number] [employer] [address] [facility],[address] [place] [address] 2 01/14/2010 00:00:00 [id number] [employer] [address] [facility],[address] [place] [address] 2 02/17/2010 00:00:00 12211 [employer] [address] [facility],[address] [place] [address] 2 06/29/2010 00:00:00 [id number] [employer] [address] [facility] [address] [place] [address] 2 07/27/2010 00:00:00 31292 [employer] [address] [place] [address] 2 12/01/2010 00:00:00 [id number] [employer] [address] [place] [address] 2 12/19/2010 00:00:00 [id number] [employer] [address] [place] [address] 01/11/2011 00:00:00 [id number] [employer] [address] [facility] [address] [place] [address] 2 01/18/2011 00:00:00 02572 [employer] [address] [facility] [address] [place] [address] 2 01/24/2011 00:00:00 [id number] [employer] [address] [facility] [address] [place] [address] 02/27/2011 00:00:00 [id number] [employer] [address] [facility],[address] [place] [address] 2 07/19/2011 00:00:00 [id number] [employer] [address] [facility],[address] [place] [address] 2 08/14/2011 00:00:00 [id number] [employer] [address] [facility],[address] [place] [address] 2 08/18/2011 00:00:00 [id number] [employer] [address] [facility],[address] [place] [address] 2 10/24/2011 00:00:00 25919 [employer] [address] [facility] [address] [place] [address] 11/02/2011 00:00:00 [id number] [employer] [address] [facility],[address] [place] [address] 02/19/2012 00:00:00 [id number] [employer] [address] [place] [address] 2 03/06/2012 00:00:00 30768 [employer] [address] [place] [address] 06/05/2012 00:00:00 [id number] [employer] [address] [place] [address] 2 06/10/2012 00:00:00 [id number] [employer] [address] [place] [address] 2 06/28/2012 00:00:00 [id number] [employer] [address] [facility] [address] [place] [address] 2 09/24/2012 00:00:00 [id number] [employer] [address] [facility] [address] [place] [address] 2 10/25/2012 00:00:00 [id number] [employer] [address] [facility] [address] [place] [address] 01/10/2013 00:00:00 07063 [employer] [address] [facility],[address] [place] [address] 2 01/24/2013 00:00:00 [id number] [employer] [address] [facility],[address] [place] [address] 2013 00:00:00 [id number] [employer] [address] [facility],[address] [place] [address] 06/20/2013 00:00:00 [id number] Judie Botello [place] Main Office [address] [place] [address] 10/14/2013 14:06:23 10/14/2013 14:56:05 Infestation by Sarcoptes scabiei elle hominis [id number] call if does not improve after second treatment in a week [id number] Judie Botello [place] Main Office [address] [place] [address] 10/16/2013 13:38:05 10/16/2013 14:08:14 Asthma 150109285 well cotnrolled continue meds Bipolar I disorder 586460313 on meds and in counsleing Disorder of coccyx 12759224 healing, hx of a fall Infestatio n by Sarcoptes scabiei elle hominis [id number] did tx and laundry, pt is crying over having scabies, reasoned with her aobut a self limited event, she calmed down by the time she left and has her therapist for supprt [id number] Idalmis nicolas Main Office [address] [facility] [address] [facility] [place] [address] 10/22/2013 10:56:55 10/22/2013 11:43:54 Eruption 212808460 severe allergic reaction to elimite, pt to finish medrol dose pack, use benadryl at night adn try motrin for the pain Bipolar I disorder 993702743 on meds and in counsleing , pt is seeing ehr therapist today,she is coping better than the other night when she went to the ER nad spoke tot he structural layout 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 Infestatio n by Sarcoptes scabiei elle hominis [id number] pt treated herself with elimite 2 tiems a week apart, she has a reaction to the elimite. she is on the last 2 days of the medrol dose pack and doing well, in the past she had had joe with prednisone but doing better this time. [id number] Judie Botello [place] Main Office [address] [facility] [address] [address] [facility] [place] [address] 12/03/2013 08:44:24 12/03/2013 09:35:46 Bipolar I disorder 674122552 pt is feeling very depressed, states she [...] not want to complicate anything today Eruption 477475017 very faint, pt is very nervous about [...] days to help if possible drug related. [id number] Idalmis Bailey nicolas Main Office [address] [address] [place] [address] 12/10/2013 16:23:48 12/10/2013 16:55:47 Needs influenza immunization 683586655 Bipolar I disorder 677222064 Patient hadher meds changed on Sunday by her prescriber and has seen her therapist since last visit 12/03. She does not feel SI/HI, mood is better. Eruption [id number] Saw kirt almonte on Sunday who prescribed cream for her rash, it is improving and pt feels better. [id number] Idalmis Bailey nicolas Main Office [address] [address] [place] [address] 06/10/2014 15:24:10 06/10/2014 16:08:41 Bipolar I disorder 372024803 on meds and feels they are helping. is working with therapist on maybe volunteeri ng. Asthma 102201613 a bit o f a flare, was put on steroids last month, continue meds. [id number] Tej Kamara Main Office [address] [address] [place] [address] 10/16/2014 10:41:58 10/16/2014 11:34:30 Bipolar I disorder 246067227 on meds and feels they are helping. is working with therapist on maybe volunteeri ng. Anxiety 25911179 Asthma 370853168 asthma is controlled . Backache 192074762 Needs infl uenza immunization 334595854 Eruption 803290965 looks like sun reaction, use otc hydrocorti sone and lotion [id number] Idalmis Bailey nicolas Main Office [address] [address] [place] [address] 02/15/2015 10:56:10 02/15/2015 11:53:33 Adult health examination 460789230 Z00.00 pap next year, will add more exercise. Bipolar I disorder 88990 6008 F31.9 on meds and feels they are helping. is working with therapist and is volunteeri . Administra tion of pneumococcal vaccine 39272033 Z23 Asthma 868460381 J45.90 9 asthma is controlled . will get pneumovax today, never had [id number] Sunni Castro Main Office [address] [facility] [address] [address] [place] [address] 07/09/2015 09:56:30 07/09/2015 10:35:29 Pain in throat 537330603 R07.0 rapid strep is negative. Viral infection. Advised NSAIDs or tylenol, fluids and rest. [id number] Idalmis nicolas Main Office [address] [address] [place] [address] 08/16/2015 14:51:18 08/16/2015 15:18:13 Asthma 186496808 J45.909 asthma is controlled Bipolar I disorder 67053 6008 F31.9 just finished partial hospitaliz ation, continue meds nad therapy Sciatica 75073795 M54.31 into right calf, positive straight leg raise, pt to see PT Low back pain 986141094 M54.5 PT referral, flexeril for night if spasms [id number] Idalmisfish nicolas Main Office [address] [address] [place] [address] 09/09/2015 09:14:35 09/09/2015 10:18:31 Impacted cerumen 03062255 H61.23 soaked and lavaged without problems Pain in lower limb 78054 006 M79.604 spasm, pt to try soma and exercise and stretch [id number] Josee Casillas MD Main Office [address] [address] [place] [address] 09/24/2015 13:53:33 09/24/2015 15:00:06 Infection of toe 969766287 L08.9 Start Abx as directed. Dressing changes daily , apply topical Abx as well. Laceration of toe 386673 004 S91.119A Remove sutures as scheduled next week. [id number] Idalmis Bailey nicolas Main Office [address] [address] [place] [address] 09/29/2015 08:38:23 09/29/2015 09:42:03 Infection of toe 152350740 L08.9 Switch from Keflex to Bactrim DS BID for 10 days. Wound culture taken. Recheck in 3-4 days and remove sutures. [id number] Idalmis NyFrances aubrey Main Office [address] [facility] [address] [address] [place] [address] 10/01/2015 08:45:49 10/01/2015 09:23:21 Laceration of toe 231983392 S91.119A 3 sutures removed w/o significan t discomfort . Pt. is advised to keep wound covered until full closure and scab comes off. Infection of toe 8764416 06 L08.9 Continue Bactrim DS as directed. Check on wound culture results. F/u prn. [id number] [facility] Main Office [address] [facility] [address] [address] [place] [address] 10/21/2015 12:42:29 10/21/2015 13:28:14 Slurred speech 782628568 R47.81 I viewed her video on her phone, unclear, she denies any substances , will get US and Ct to rule out any CVA/bleed but very unlikely, if it recures pt was told to go to ER, Headache 21008338 R51 mild, only a day or 2, not there with slurred speecha dn very mild [id number] [facility] Main Office [address] [facility] [address] [address] [place] [address] 11/25/2015 10:41:59 11/25/2015 11:44:21 Slurred speech 610839219 R47.[address] of head and carotid US Influenza vaccine needed 3922434285 106 Z23 Asthma 098926063 J45.90 9 asthma is controlled .she was followed by Eddie Haywood but she just retired, was on Brevo inhaler but stopped it. Is on singulair and proair prn. Bipolar I disorder 11362 6008 F31.9 is on meds, thinks she gained weight due to stress eating. continue meds [id number] [facility] Main Office [address] [facility] [address] [address] [place] [address] 12/10/2015 13:49:46 12/10/2015 14:57:55 Candidiasis of mouth 91393479 B37.0 [id number] Idalmis NyFrances maria isabel Main Office [address] [facility] [address] [address] [place] [address] 03/29/2016 15:00:02 03/29/2016 15:46:19 Asthma 053546040 J45.909 asthma is controlled . continue meds Bipolar I disorder 04666 6008 F31.9 is on meds, mood is stable, volunteeri ng which is good for her, just out of partial hospitaliz ation [id number] Idalmis NyFrances maria isabel Main Office [address] [facility] [address] [address] [place] [address] 07/06/2016 14:52:06 07/06/2016 15:43:01 Vitamin D deficiency 79541535 E55.9 take weekly med Bipolar I disorder 56763 6008 F31.9 is on meds, mood is stable, volunteeri ng which is good for her, just out of partial hospitaliz ation [id number] Idalmis NyFrances maria isabel Main Office [address] [facility] [address] [place] [address] 07/24/2016 14:52:50 07/24/2016 15:34:41 Adult health examination 894484440 Z00.00 is exercising a lot and feels well, disappoint ed no weight loss but feels better. Change in skin lesion 39 0493581 L98.9 left arm, we will make appt with DR Tobin Asthma 804082448 J45.90 9 asthma is controlled . continue meds Bipolar I disorder 47629 6008 F31.9 is on meds, mood is stable, volunteeri ng which is good for her, in therapy and doing a voluntary day program [id number] Idalmis NyFrances maria isabel Main Office [address] [facility] [address] [place] [address] 10/30/2016 09:38:36 10/30/2016 10:12:18 Needs influenza immunization 232958842 Z23 Hypothyroidism 09004297 E03.9 pt is on meds and takes them regularly, due for recheck of level Asthma 051059761 J45.90 9 asthma is controlled . continue meds Bipolar I disorder 98734 6008 F31.9 is taking meds regularly, med provider will be changing and pt is due for a level and she will call and get an order for a level and who her next med provider will be [id number] Idalmis nicolas Main Office [address] [address] [place] [address] 11/23/2016 12:49:42 11/23/2016 13:32:00 Dysfunctional uterine bleeding 81868947 N93.8 see hx, due for pap but will refer to [facility] due to DUB, may need treatment with provera, pt with depression should tell [facility] provider this, Backache 823027273 M54.9 use motrin as needed Asthma 790536040 J45.90 9 asthma is controlled . 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 Bipolar I disorder 56519 6008 F31.9 doing very well [id number] Idalmis Bailey nicolas Main Office [address] [address] [place] [address] 05/16/2017 10:22:08 05/16/2017 11:05:23 Hypothyroidism 35982702 E03.9 off meds for 2 weeks, restart and check level in 2 months Hyperhidrosis 737780887 R61 wrote down instructio ns for pt to take 3 days in a row, then change to 2 times a week and use regular deodorant too Asthma 777158255 J45.90 9 asthma is controlled . Bipolar I disorder 80277 6008 F31.9 doing very well [id number] Josee Casillas MD Main Office [address] [address] [place] [address] 06/01/2017 15:02:22 06/01/2017 15:37:39 Hypothyroidism 21619453 E03.9 Last TSH 6.65, will increase levothyrox ine to 37.5mcg daily. new rx providd. she has lab orders and will have them checked in 4-6 weeks. Contusion of forearm 398 50280 S50.11XA small contusion, improving. Bipolar I disorder 56285 6008 F31.9 Recent partial hospitaliz ation x 2 weeks, discharged today, is feeling better and looking forward to her [place] vacation starting on sunday. [id number] Kait Felipevedo Main Office [address] [facility] [address] [facility] [place] [address] 07/27/2017 13:51:39 07/27/2017 14:17:38 Horse bite wound 766887049 W55.11XA Healing well, currently on clinda based on culture results. she is taking a probiotic, eating yogurt, instructed to eat 20 mins prior to abx. Call or return for any concerns or worsening. Open wound of abdominal wall 264008223 S31.100A [id number] Josee Casillas MD Main Office [address] [facility] [address] [facility] [place] [address] 12/04/2017 11:06:41 12/04/2017 11:40:34 Needs influenza immunization 735319989 Z23 [id number] Izaiah Prajapati MD Main Office [address] [facility] [address] [facility] [place] [address] 12/14/2017 15:10:05 12/14/2017 16:03:05 Seborrheic dermatitis of scalp 642565813 L21.0 Seborrheic dermatitis 50 728687 L21.9 Will cover initially for both fungal and bacterial etiologies with low potency steroid for inflammati on. Less likely psoriasis but if persistent /worse will need derm referral. Impetigo 06899470 L01.00 [id number] Idalmis nicolas Main Office [address] [facility] [address] [facility] [place] [address] 04/03/2018 13:53:17 04/03/2018 14:54:27 Asthma 062917605 J45.909 Refilled pro air to use prn Acute otitis media 16256 03 H66.92 Advise to use otc pain [...] any dizziness or chest discomfort . Eruption 476716773 R21 Does not appear to be shingles, infection or coxsackie virus at this time. Will use desonide bid (has this at home). Call if rash not improving. Likely contact dermatitis vs eczema. 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 Medication monitoring 39 0578966 Z51.81 needs EKG due to meds for bipolar Impacted c erumen of bilateral ears 2883007788 702125 H61.23 soak and lavage today . canals clear upon discharge Asthma 711099898 J45.90 9 asthma is controlled . 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 Encouraged less carbs and increased exercise. Labs are normal, will check fasting BS with next labs Hypothyroidism 88514718 E03.9 TSh trending up , now close to 10. Will gradually increase med alternatin g 1 with 1.5 of levothyrox ine daily. Check TSH 6 weeks Bipolar I disorder 13328 6008 F31.9 pt doing better continue meds listed and will call therapist if not doing well. Follows with current mental health providers. [id number] Dominga Maxvaibhav Main Office [address] [address] [place] [address] 12/20/2018 14:53:53 12/20/2018 15:58:11 Lumbar radiculopathy 773282513 M54.16 start medrol today and PT alan next week, TC#3 sparingly for pain, supplement with otc meds. Pt aware no refills on pain med. Rest but change position and walk frequently . Stretching at home. Call or ED if acutely worse or any bowel/blad shona sx. Followup in a few weeks. [id number] Dominga Maxvaibhav Main Office [address] [address] [place] [address] 01/10/2019 13:55:04 01/10/2019 14:39:13 Low back pain 974089810 M54.5 Continue PT for another 4-6 weeks, continue home exercises Acute back pain with sciatica 759981247 M54.42 use mobic for a week then prn if still having pain. If not better in 4-6 weeks, consider imaging. [id number] Idalmis nicolas Main Office [address] [address] [place] [address] 01/24/2019 10:34:24 01/24/2019 10:53:58 [id number] Doimnga Gisell Main Office [address] [facility] [address] [place] [address] 08/04/2019 13:56:48 08/04/2019 15:29:46 Impacted cerumen 19574126 H61.23 removed today, right canal still red, distally has some ? soft wax 7-8 oclock, ? cholesteat germania will recheck in 2 weeks, no water in right ear. Call if any pain or changes in ear or hearing. [id number] Dominga Maxvaibhav Main Office [address] [address] [place] [address] 08/18/2019 13:46:56 08/18/2019 14:21:42 Serous otitis media 72252180 H65.91 steam, flonase, keep hydrated, ENT if not better. Cannot take oral steroids, makes her manic. 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 but sees them, more positive than in the past Screening for malignant neoplasm of breast 368431381 Z12.39 pt to set up first mammogram Bipolar I disorder 31067 6008 F31.9 doing very well, will get orer from psychiatry for a lithium level Hypothyroidism 21493297 E03.9 get thyroid test Eczema 08859404 L30.9 eyebrows, ears tx as below Psoriasis of scalp 54232 8008 L40.9 Screening for malignant neoplasm of cervix 660839127 Z12.4 pt to make appt [id number] Idalmis nicolas [facility] [address] [address] [place] [address] 10/02/2019 06:24:57 10/06/2019 09:11:51 Hypothyroidism 08248376 E03.9 elevated TSH ordered by psych, will increase dose and recheck in 6 weeks. Bipolar I disorder 02077 6008 F31.9 doing well, labs by psychiatry , will talk with pharmacist how to take the thyroid and lithium levels so they do not interfere with each other Mild inter mittent asthma 694984099 J45.20 stable continue meds [id number] Idalmis JaimeSnow maria isabel [facility] [address] [facility] [address] [place] [address] 10/16/2019 08:37:38 10/16/2019 11:49:29 Hypothyroidism 26158629 E03.9 thyroid dose was increased recently but now pt does not feel well. plan is to have pt recheck thyroid level today, she is taking it midday a few hours after lithium,michoacano sanchez had asked the pharmacist for suggestion , so this is different than how she took it in the past Bipolar I disorder 2153000 9068 F31.9 feels very emotional Not grounded . is working with therapist, no suicidal plans but has some thoughts, feels safe and promises she can keep herself safe, work with counselor [id number] Dominga Jameson [facility] [address] [facility] [address] [place] [address] 11/28/2019 12:54:48 12/02/2019 10:41:25 Seborrheic dermatitis of scalp 501737346 L21.0 Use Tgel hampoo a few time a week and then put lotion on affected areas bid for a week, then use prn only, call if not helping and would do dermatolog y referral [id number] Idalmis Bailey nicolas Main Office [address] [address] [place] [address] 03/18/2020 15:02:30 03/18/2020 16:15:08 Eczema 14361556 L30.9 on MTX, improving, pt knows to take extra precaution s against Covid infectin Anxiety state 932001839 F41.1 on meds, sees counselor hard 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 Bipolar I disorder 81840 6008 F31.9 a bit of a struggle but doing ok, more resources, Mild inter mittent asthma 514612622 J45.20 stable continue meds Hypothyroidism 80711712 E03.9 continue meds [id number] Idalmis Bailey nicolas Main Office [address] [facility] [address] [address] [place] [address] 07/14/2020 13:22:37 07/14/2020 13:57:55 Eczema 22009632 L30.9 on MTX, improving, pt knows to take extra precaution s against Covid infection Mild inter mittent asthma 798814588 J45.20 stable continue meds Hypothyroidism 51011433 E03.9 continue meds Macromastia 885793297 N6 2 pain in shoulders and upper back and rashes under breasts considerin g breast reduction, will refer to plastic surgeon Screening for malignant neoplasm of breast 055066028 Z12.39 pt to set up first mammogram Bipolar I disorder 48948 6008 F31.9 a bit of a struggle but doing ok, more resources, [id number] Reyes Fine MD Main Office [address] [facility] [address] [address] [place] [address] 08/27/2020 10:24:55 08/27/2020 12:15:05 Impacted cerumen 40389352 H61.23 Cerumen removed in Right.Left sided aborted after removal of some wax in the exterior ear as it looked like patient caused trauma to her ear drum from q-tip use. Mild inter mittent asthma 174216598 J45.20 Notes under controll with inhalers, needed refills. Acute otitis media 27251 03 H66.92 After wax removal patient notes improvemen t in hearing denies vomiting, dizziness, or facial weakness, fever. Will provide ear drops advised injured ear drums can heal on its own thus will f/u in 2 weeks to reassess. Will refer to ent. Perforatio n of tympanic membrane 35043005 H72.92 [id number] Idalmis nicolas Main Office [address] [facility] [address] [place] [address] 12/22/2020 10:51:31 12/22/2020 11:39:16 Adult health examination 265536639 Z00.00 doing pretty well, keeping active, in counseling weekly and meds by psychiatry , anxiety due to upcoming skin lesion resection. 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 [facility] which 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 Hypothyroidism 47975685 E03.9 continue meds check labs Mild inter mittent asthma 064129131 J45.20 stable continue meds Needs infl uenza immunization 575885965 Z23 Lesion of skin of face 3519744002 [address] Tobin with malignancy getting removed 01/03 nervous [id number] Idalmis Bailey nicolas Main Office [address] [facility] [address] [facility] [place] [place] [address] 12/01/2021 09:39:44 12/01/2021 10:21:17 Hypothyroidism 24383884 E03.9 check level and continue med Needs infl uenza immunization 764010938 Z23 Bipolar I disorder 03730 6008 F31.9 a bit of a struggle but doing ok, in counseling and sees psychiatry and 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 She had the visit with Dr Ny and contracts for safety, has crisis numbers, family and therapist support. Does not feel the need for ED evaluation . Dr Ny and patient comforatab le with the plan. Reschedule AWV later. [id number] Dominga Jameson Main Office [address] [facility] [address] [place] [address] 04/05/2022 14:54:10 04/05/2022 15:57:29 Adult health examination 368439146 Z00.00 Pt is in good general health with mental health stable and improved. 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 Social and family history reviewed. Immunizati ons reviewed, advised annual flu shot which she had. She is not up to date on dental and eye providers, will make appt. mammogram utd, [employer] [facility]d Reviewed diet and exercise. Hypothyroidism 59612347 E03.9 recent tsh normal Mild inter mittent asthma 667828566 J45.20 renew med, uses prn Bipolar I disorder 48544 6008 F31.9 pt doing better continue meds listed and will call therapist if not doing well. Follows with current mental health providers. 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 0 pt gets meds for bipolar from Dr Porfirio Hearn in [facility] in [facility] n heartrate 107, EKG with NSR, normal QT interval. Hypothyroidism 54487217 E03.9 continue med [id number] RENUKA RAMÍREZ MD Main Office [address] [facility] [address] [facility] [place] [address] 06/16/2022 12:51:46 06/16/2022 13:43:42 Laceration of finger 248193868 S61.210A - pt had 8 sutures placed on right second digit after laceration with veggie cutter- 2 sutures were removed today as it was noted as the sutures were removed patient skin had not completely healed, will remove rest 12-14 day usman- RTC in 2 days Transition of care from emergency department to self-care 0862409142 74092 Z76.89 - presented to urgent care on 06/06 after laceration of right second and third digits [id number] Kait Campo Main Office [address] [facility] [address] [facility] [place] [address] 06/19/2022 09:20:48 06/19/2022 10:05:55 Laceration of finger 124572814 S61.210D - pt had 8 sutures placed on right second digit after laceration with veggie cutter- 2 sutures were removed on 06/16- other 6 suture were removed today on 06/19- pt does have one small area were the laceration is still prominent therefore wound precaution s were given- RTC if patient note warm, tenderness , redness or discharge [id number] Idalmis nicolas Main Office [address] [facility] [address] [facility] [place] [address] 06/30/2022 15:53:21 06/30/2022 16:22:25 Injury of finger 15889831 S69.91XD see hpi and PE. 3rd finger cauterized in UC still with balck hard cover and 2nd healing after sutures. will refer to plastic surgery to address the 3rd finger, asked for appt early next week. 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- medication s filled by [facility] Bipolar I disorder 19752 6008 F31.9 - follows with psychiatry every 3 months, as a new provider started seeing one year ago- currently on quetiapine 800mg QD and lithium 600mg BID- [facility] Mild inter mittent asthma 344083718 J45.20 - pt takes albuterol pump has needed (will go months without using it)- take singular 10mg daily Injury of finger 2097012 8 S69.91XD - second digit all sutures removed, wound still has dried blood, healing very slow- third finger still black with very little improvemen t since 06/06- pt was referred to plastics> [facility] cannot see patient until after December, called to push date forward, request refused> currently looking for other plastic surgeons in the area- ED precaution s given- RTC in one month for continued follow-up Psoriasis 8469003 L40.9 - currently on humira injections which provides relief [id number] RENUKA RAMÍREZ MD Main Office [address] [facility] [address] [place] [address] 07/14/2022 13:23:31 07/14/2022 14:05:46 Injury of finger 71500554 S69.91XD - improving- second digit all sutures removed, wound still has dried blood, healing very slow- third finger cautrized wound is healing, scabbing is regressing - pt was referred to plastics> [facility] cannot see patient until after December, called [...] for healing.- wound care referral also provided [id number] RENUKA RAMÍREZ MD Main Office [address] [facility] [address] [place] [address] 08/17/2022 11:20:11 08/17/2022 12:07:00 Injury of finger 59730131 S69.91XD - improving- second digit: at today visit noted that piece of skin that was originally sutured is no longer in place. The skin was removed. Well-heale d tissue noted underneath .- third finger which was cauterized is now healed- pt was referred to plastics> [facility] cannot see patient until after December, called [...] to ensure second digit has fully healed [id number] Josee Casillas MD Main Office [address] [facility] [address] [place] [address] 08/29/2022 12:52:30 08/29/2022 13:46:55 Impacted cerumen of bilateral ears 9288790871 478301 H61.23 Acute righ t otitis media 891150407 H66.91 [id number] Kait Campo Main Office [address] [facility] [address] [place] [address] 09/28/2022 14:37:07 09/28/2022 15:09:58 Injury of finger 70799624 S69.91XD - now resolved, second and third digit have completely healed- pt was referred to plastics> [facility] cannot see patient until after December, called [...] 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 C) Vaccines:I nfluenza: not this yearTdAP: 06/06/2022Z felix: due at 42PBL90: due at 83MERS15: 02/15/2015 PCV20:PCV1 5:COVID: , 05/17/2020, 01/11/2021 , 12/07/2021 D) Routine blood work orderedE) Updated patient's history RTC in one year for annual exam or sooner if any acute complaints Fatigue 84965976 R53.83 Z00.00 Hyperlipidemia 28415267 E78.5 Z00.00 Hepatitis C screening 41 7525981 Z11.59 HIV screening 502416311 Z11.4 Anxiety state 389883466 F41.1 - NIA-7 score of 21- currently [...] filled by [facility] Bipolar I disorder 13218 600 F31.9 - PHQ-9 score score of 25 [...] s given- RTC in 4 weeks Hypothyroidism 66555497 E03.9 - will check levels- c/w levothyrox ine 100mcg QD Mild inter mittent asthma 842745527 J45.20 - pt takes albuterol pump has needed (will go months without using it)- take singular 10mg daily Vitamin D deficiency 347 98770 E55.9 Irritable bowel syndrome with diarrhea 634075159 K58.0 - pt is currently taking dicyclomin e 10mg QID as needed Psoriasis 0570849 L40.9 - currently on humira injections which provides relief Tachycardia 4814486 R00. 0 - HR today was 120- EKG has a lot of artifact but sinus tachycardi a with HR of 109- pt was started on metoprolol succinate ER 25mg- most likely due to elevated anxiety Screening for malignant neoplasm of cervix 457554040 Z12.4 Body mass index 30+ - obesity 223262628 E66.9 Z68.31 - BMI of 31.5- Cut [...] minutes cumulative of moderate exercise recommende dJaycob [id number] Kait Campo Main Office [address] [place] [address] 04/26/2023 14:37:13 04/26/2023 15:09:02 Hepatitis C antibody detected 698537115 Z86.19 - ordered hepatic function panel- ordered confirmato ry testing testing by checking viral load and genotype- if positive will send to GI Acute kidney injury 1466 9001 N17.9 - pt advised to remain hydrated- continue to avoid NSAIDs- repeat blood work ordered [id number] RENUKA RAMÍREZ MD Main Office [address] [place] [address] 05/17/2023 13:49:04 05/17/2023 14:29:35 Anxiety state 544207581 F41.1 - NIA-7 score of 17- currently on lorazepam 1mg BID given by [facility] which she follows every 3 months> pt advised not to take the medication with clonazepam 0.5mg- counsellin radha provided, 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 0 - HR today was 109- EKG done on 04/12 has a lot of artifact but sinus tachycardi a with HR of 109- c/w metoprolol succinate ER 25mg- ordered US echo- pt referred to cardiology for holter monitor- [facility] will also be adjusting meds to help improve HR [id number] RENUKA RAMÍREZ MD Main Office [address] [place] [address] 08/13/2023 14:37:29 08/13/2023 15:13:08 Tachycardia 2311825 R00.0 - now resolved- HR today was [...] will request note Vitamin D deficiency 347 39916 E55.9 - pt noted to have elevated level on 04/17/2023 -> 68- pt was advised to start back on 1000 IU to prevent levels from going too low> pt was advised this when informed of blood however she did not read message properly Psoriasis 4224408 L40.9 - currently on cyltezo injections which provides relief- pt does have an area at the back of left ear were the psoriasis is worse, pt provided with clobetasol cream and advised to moisturise [id number] RENUKA RAMÍREZ MD Main Office [address] [facility] [address] [facility] [place], [place] [address] 12/21/2023 15:15:32 12/21/2023 16:02:18 Acute kidney injury 05750022 N17.9 - pt advised to remain hydrated- continue to avoid NSAIDs- repeat blood work ordered Anxiety state 863510152 F41.1 - NIA-7 score of 8- lorazepam as been stopped and switched to clonazepam - counsellin g provided, 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- [facility] Bipolar I disorder 31299 9308 F31.9 - improved- PHQ-9 score score of 6 with elevated NIA-7 score 8- pt has completed day-progra m at [facility]> clonazepam 0.5mg as added to regimen- pt will be following with psychiatry over the next few month to optimize her meds as it could be the cause of the tachycardi a- currently on quetiapine 800mg QD and lithium 600mg BID- medication s filled by psychiatri Hypothyroidism 64081795 E03.9 - will check levels- c/w levothyrox ine 100mcg QD Mild inter mittent asthma 758503517 J45.20 - pt takes albuterol pump has needed (will go months without using it)- take singular 10mg daily Tachycardia 2407386 R00. 0 - now resolved- HR today [...] will request note Needs infl uenza immunization 171808355 Z23 19 YEARS AND OLDER ONLY Tremor 95752541 R25.1 - ordered vitamin b12 and folate- ordered MRI of the brain for further evaluation - pt psychiatri started patient on propanolol ER 60mg Urinary incontinence 165 444364 R32 - pt has been following with urology, advised to given them a call for follow-up Numbness of hand 5170120 04 R20.0 - occurred after incident veggie slicer- located on right hand on second and third digit- pt having neuropathi c pain and temperatur e sensitivit ies- referred to hand surgery for second option however feel that pain is from severed never endings and may permanent [id number] RENUKA RAMÍREZ MD Main Office [address] [facility] [address] [facility] [place] [address] 01/01/2024 09:20:34 01/01/2024 09:55:35 Transition of care from emergency department to self-care 7206785015 40824 Z76.89 - presented to urgent care on 12/23 for cellulitis of lower extremity- reviewed notes Cellulitis 800330369 L03 .90 - well healing- no need for repeat antibiotic treatment at this time- wound culture grew Beta hemolytic Streptococ cus, group B which is susceptibl e to keflex- pt advised to keep area clean and dry- return precaution s were discussed [id number] RENUKA RAMÍREZ MD Main Office [address] [facility] [address] [facility] [place], [place] [address] 03/24/2024 14:33:30 03/24/2024 15:06:31 Acute kidney injury 02850543 N17.9 - creatine 1.1 and GFR of 58- pt advised to remain hydrated- continue to avoid NSAIDs- repeat blood work ordered Hypothyroidism 75253135 E03.9 - normal levels- will check levels- c/w levothyrox ine 100mcg QD Tachycardia 9192938 R00. 0 - now resolved- HR today [...] control with metoprolol at the time Tremor 18877648 R25.1 - normal vitamin b12- MRI of [...] with her psychiatri st Urinary incontinence 165 228218 R32 - pt has been following with urology, advised to given them a call for follow-up Numbness of hand 2089679 04 R20.0 - occurred after incident vebenjamin slicer- located on right hand on second and third digit- pt having neuropathi c pain and temperatur e sensitivit ies- pt is currently following with hand surgery [id number] Estrellita Pitt PA-C Main Office [address] [place] [address] 04/15/2024 13:36:44 04/15/2024 14:47:23 Impacted cerumen of bilateral ears 2873881792 647020 H61.23 Bilateral cerumen impaction , recurrent. Recommend [...] [place]: [employer] Crystal Mackay Eduard [id number] Crystal Mackay Eduard 08/13/2023 2 [place]: [facility] Crystal Mackay Eduard [id number] Crystal A Eduard 12/21/2023 1 MEDICARE B-[place]: [employer] Crystal Codie Eduard [id number] Crystal A Eduard 12/21/2023 2 [place] [facility] Crystal Mackay Eduard [id number] Crystal A Eduard 01/01/2024 1 MEDICARE B-[place]: [employer] Crystal Codie Edurad [id number] Crystal A Eduard 01/01/2024 2 [place] Crystal Codie Eduard [id number] Crystal Codie Eduard 03/24/2024 1 MEDICARE B-[place]: [employer] Crystal Chapa [id number] Crystal Chapa 03/24/2024 2 MEDICAID-[place]: [facility] Crystal Chapa [id number] Crystal Chapa 04/15/2024 1 MEDICARE B-[place]: [facility] Crystal Chapa [id number] Crystal Chapa 04/15/2024 2 [place]ICAID-[place]: [facility] Crystal Chapa [id number] Crystal Chapa Notes Date Note Type Note [...] has any heart palpitations. RENUKA RAMÍREZ MD [address] [address], [place], [address], [facility] 08/13/2023 16:16:00 4 text/html IncontinenceReported bypatient.Quality:urge incontinence Severity:mild Duration:intermittent Context:anxiety Crystal Chapa is a 43 year old F who presented to the clinic for follow-up on her chronic conditions. Patient has been following with a new RELIABILITY MANAGER for her psychiatrist medications. Overactive bladder: Pt [...] temperature sensitivities. RENUKA RAMÍREZ MD [address], [address], [facility] 12/21/2023 19:14:18 4 text/html Emergency Department Follow-Up [...] has no completed keflex. RENUKA RAMÍREZ MD [address], [address], [facility] 01/01/2024 10:00:18 5 text/html IncontinenceReported bypatient.Quality:urge incontinence Severity:mild Duration:intermittent Context:anxiety Crystal Chapa is a 43 year old F who presented to the clinic for follow-up on her chronic conditions. Patient has been following with a new RELIABILITY MANAGER for her psychiatrist medications. Pt started a [...] MRI has been ordered. RENUKA RAMÍREZ MD [address], [address], [facility] 03/24/2024 15:07:59 text/html 43 year old female c/o 5 day onset of bilateral ear ache and decreased hearing. NO viral symptoms, denies fever, chills. H/o cerumen impaction in the past. Uses q-tips. Estrellita Pitt PA-C [address] [address], [place], [address], [facility] 04/15/2024 15:10:36 OBGyn Episode No OBEpisode recorded.
[2024-06-12 12:08] LABS: Copeptin 9.3 pmol/L (< OR = 13.7)
== END 2024-06-05 14:09 | disposition home or self-care (01) ==
LOC: HO.LAB 14:08
PROVIDERS: PCP Student in an Organized Health Care Education/Training Program; Visit Provider Psychiatry & Neurology Psychiatry
DX: E23.2 Diabetes insipidus (principal)
CPT/HCPCS: 36415; 81003; 82565; 82570; 83930; 83935; 84295; 84300; 86255

== ENCOUNTER 2024-06-13 07:48 | Outpatient (REF) | payer MEDICARE, MEDICAID, SELFPAY ==
--- OUTSIDE RECORDS SUMMARY | 2024-06-13 07:51 | XMS_ITS | Clinical Summary ---
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
[2024-06-13 08:37] LABS: Appearance Urine Cloudy; Color Urine Yellow; Glucose Urine UA Negative (Negative); Leukocyte Esterase Urine Small (1+) (Negative); Nitrite Urine Negative (Negative); PH 6.5 (5.0-9.0); UMIC TRIGGER UA YES; Urine Blood Negative (Negative); Urine Ketones Negative (Negative); Urine Protein Negative (Neg-Trace)
[2024-06-13 08:49] LABS: Anion Gap 14 (12-20); Carbon Dioxide 24 mmol/L (22-29); Chloride 109 mmol/L (96-108); Estimated Glomerular Filt Rate 52; Glucose Fasting 105 mg/dL (60-99); Potassium 3.7 mmol/L (3.3-5.1); Sodium 143 mmol/L (135-145)
[2024-06-13 08:50] LABS: Creatinine Urine 135.51 mg/dL; Potassium Urine Random 37.2 mmol/L
[2024-06-13 08:54] LABS: Bacteria Urine 3+ (None Seen); Hyaline Casts Urine 0-2 /LPF (0-2); RBC Urine 0-2 /HPF (0-2)
[2024-06-13 09:10] LABS: Osmolality Urine 388 mosm/kg (373-1093)
[2024-06-13 10:08] LABS: Osmolality, Serum 303 mosm/kg (281-305)
[2024-06-14 07:03] LABS: Follicle Stimulating Hormone 2.2 mIU/mL; Lutenizing Hormone 1.5 mIU/mL
[2024-06-15 20:38] LABS: Calcium, Random Urine 3.4 mg/dL
[2024-06-16 21:38] LABS: Calcium, Ionized 5.3 mg/dL (4.7-5.5)
[2024-06-17 12:48] LABS: Carnitine Esters 6 umol/L (4-13); Carnitine, Free 19 umol/L (19-48); Carnitine, Total 25 umol/L (25-58); Esterified/Free 0.32 umol/L (0.13-0.42)
[2024-06-17 21:04] LABS: Copeptin 29.8 pmol/L (< OR = 13.7)
== END 2024-06-13 07:49 | disposition home or self-care (01) ==
LOC: HO.LAB 07:48
PROVIDERS: PCP Student in an Organized Health Care Education/Training Program; Visit Provider Psychiatry & Neurology Psychiatry
DX: E23.2 Diabetes insipidus (principal)
CPT/HCPCS: 36415; 80051; 81001; 82310; 82330; 82379; 82565; 82570; 82947; 83001; 83002; 83930; 83935; 84133; 84300; 86255

== ENCOUNTER 2024-06-26 07:52 | Outpatient (REF) | payer MEDICARE, MEDICAID, SELFPAY ==
--- OUTSIDE RECORDS SUMMARY | 2024-06-26 07:55 | XMS_ITS | Clinical Summary ---
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
--- OUTSIDE RECORDS SUMMARY | 2024-06-26 07:55 | XMS_ITS | Data Portability ---
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 [facility] 16:11[facility]29 Clostrid ioides difficil e infectio n [id number] Completed 201109/29/2013 IMPRESSI ON: RESOLVED WITH TX, PT TO KEEP ON PROBIOTI C FOR A FEW MORE WEEKS TO RESOTRE KERMIT TO NORMAL.; RECORDED 02/19/20 12 1:39PM BY SHI SKAGGS MA, ANNOTATI ON/ADDEN DUM Not Available [facility] 4 05:37:58 Candidal vulvovag initis 28751849 Completed 200809/29/2013 RECORDED 06/19/19 09 10:27AM BY MELITON FRECNH ON/ADDEN DUM Not Available [facility] 4 05:37:58 Cellulit is and abscess of neck 695213524 Completed 201109/29/2013 RECORDED 02/19/20 12 1:39PM BY SHI SKAGGS MA, ANNOTATI ON/ADDEN DUM Not Available [facility] 4 05:37:58 Screenin g for malignan t neoplasm of cervix Completed 201209/29/2013 RECORDED 09/25/19 13 4:19PM BY NYDIA CHRISTIANSEN MA, ANNOTATI ON/ADDEN DUM Not Available [facility] 4 05:37:58 Colitis, enteriti s and gastroen teritis presumed infectio us 472321872 Completed 201109/29/2013 RECORDED 02/19/20 12 1:39PM BY SHI SKAGGS MA, ANNOTATI ON/ADDEN DUM Not Available [facility] 4 05:37:58 Conjunct ivitis 4226555 Completed 201109/29/2013 RECORDED 02/19/20 12 1:39PM BY SHI SKAGGS MA, ANNOTATI ON/ADDEN DUM Not Available [facility] 4 05:37:58 Seborrhe ic dermatit is 66602253 Completed 201109/29/2013 IMPRESSI ON: WITH DRY SCALP. PT REASSURE D. SHE WILL CHANGE SHAMPOOS (TRIAL OF T-GEL NEUTRAGE NA), WASH HAIR EVERY OTHER DAY. IF NEEDED SHE WILL USE PO ANTIHIST AMINES. PTS QUESTION S ANSWERED , FEELS BETTER ABOUT SXS. TO CONTACT OFFICE PRN.; RECORDED 02/19/20 12 1:39PM BY SHI SKAGGS MA, MELITON ON/ADDEN DUM Not Available [facility] 4 05:37:58 History of depressi on [id number] Completed 201309/29/2013 RECORDED 06/21/19 14 2:38PM BY SHI SKAGGS MA, KIKAATI ON/ADDEN DUM Not Available [facility] 4 05:37:58 Diarrhea 93488157 Completed 201209/29/2013 IMPRESSI ON: NEW PROBLEM, PT WILL SEE DR MARION FOR EVAL,; RECORDED 01/11/20 13 10:05AM BY SHI SKAGGS MA, ANNOTATI ON/ADDEN DUM Not Available [facility] 4 05:37:58 Hearing loss 15063225 Completed 201109/29/2013 RECORDED 02/19/20 12 1:39PM BY SHI SKAGGS MA, ANNOTATI ON/ADDEN DUM Not Available [facility] 4 05:37:58 Dysfunct ional uterine bleeding Completed 201109/29/2013 RECORDED 02/19/20 12 1:39PM BY SHI SKAGGS MA, ANNOTATI ON/ADDEN DUM FRIEDA Goyal MA [facility] 8 15:03:51 Dysmenor rocael [id number] Completed 201209/29/2013 IMPRESSI ON: NL EXAM PAP AND CXS TODAY; RECORDED 09/25/19 13 4:19PM BY NYDIA CHRISTIANSEN MA, ANNOTATI ON/ADDEN DUM Not Available [facility] 4 05:37:58 Dysuria 86851321 Completed 201109/29/2013 RECORDED 02/19/20 12 1:39PM BY SHI SKAGGS MA, ANNOTATI ON/ADDEN DUM Not Available [facility] 4 05:37:58 Disorder of cardiova scular system 98757591 Completed 201109/29/2013 RECORDED 02/19/20 12 1:39PM BY SHI SKAGGS MA, ANNOTATI ON/ADDEN DUM Not Available [facility] 4 05:37:58 Fall on or from stairs or steps Completed 201209/29/2013 RECORDED 09/25/19 13 4:19PM BY NYDIA CHRISTIANSEN MA, ANNOTATI ON/ADDEN DUM Not Available [facility] 4 05:37:58 Family history of breast cancer 117508012 Completed 201109/29/2013 IMPRESSI ON: REVIEWED [facility], TESTING NOT THOUGHT TO BE NECESSAR Y, WILL START MAMMO AT 39 AND PT TO LEARN TO DO SELF BREAST EXAM; RECORDED 02/19/20 12 1:39PM BY SHI SKAGGS MA, ANNOTATI ON/ADDEN DUM Not Available [facility] 4 05:37:58 Influenz a vaccine needed [id number] 06 Completed 201209/29/2013 RECORDED 10/26/19 13 2:51PM BY JUDIE BOTELLO, OFFICE VISIT Not Available [facility] 4 05:37:58 Closed fracture of radius 621524545 Completed 201109/29/2013 RECORDED 02/19/20 12 1:39PM BY SHI SKAGGS MA, KIKAATI ON/ADDEN DUM Not Available [facility] 4 05:37:58 Adult health examinat ion Completed 201309/29/2013 IMPRESSI ON: NOT DUE FOR A PAP, BREAST EXAM TODAY, INCREASE EXERCISE ; RECORDED 06/21/19 14 2:37PM BY SHI SKAGGS MA, KIKAATI ON/ADDEN DUM Not Available [facility] 4 05:37:58 General examinat ion of patient Completed 200809/29/2013 IMPRESSI ON: PAP TODAY, GOING BACK TO SCHOOL; RECORDED 06/19/19 09 10:27AM BY JUDIE BOTELLO, KIKAATI ON/ADDEN DUM Not Available [facility] 4 05:37:58 Well child 160855555 Completed 201109/29/2013 RECORDED 02/19/20 12 1:39PM BY SHI SKAGGS MA, ANNOTATI ON/ADDEN DUM Not Available [facility] 4 05:37:58 Ingrowin g nail 713781794 Completed 201109/29/2013 IMPRESSI ON: SOAK FOOT WARM WATER MULTIPLE TIMES A DAY PODIATRY APPT IN CASE NEEDS PARTIAL NAIL REMOVAL. SHE WILL CANCEL APPT IF BETTER.; RECORDED 02/19/20 12 1:39PM BY SHI SKAGGS MA, ANNOTATI ON/ADDEN DUM Not Available [facility] 4 05:37:58 Low back pain 399993605 Completed 201309/29/2013 IMPRESSI ON: FOR MONTHS, HX OF A FEW FALLS, PT TO SET UP PT ORDER TO PT TODAY; RECORDED 06/21/19 14 2:38PM BY SHI SKAGGS MA, ANNOTATI ON/ADDEN DUM FRIEDA French [facility] 7 15:02:14 Lymphade nopathy 04288059 Completed 201109/29/2013 IMPRESSI ON: BILAT, SCALP WITH SKIN LESION CAUSING LEFT OCCIPITA L NODE INVOLVEM ENT; RECORDED 02/19/20 12 1:39PM BY SHI SKAGGS MA, ANNOTATI ON/ADDEN DUM Not Available [facility] 4 05:37:58 Malaise and fatigue 737346383 Completed 201109/29/2013 IMPRESSI ON: ON MEDS BY CHERYL MASON AND IN COUNSELI NG WEEKLY; RECORDED 02/19/20 12 1:40PM BY SHI SKAGGS MA, ANNOTATI ON/ADDEN DUM Not Available [facility] 4 05:37:58 Blisters of multiple sites 043169120 Completed 201109/29/2013 RECORDED 02/19/20 12 1:39PM BY SHI SKAGGS MA, ANNOTATI ON/ADDEN DUM Not Available [facility] 4 05:37:58 Administ ration of bacteria l and viral vaccine Completed 200709/29/2013 RECORDED 01/09/20 08 12:58PM BY DEBBI COCHRAN, OFFICE VISIT Not Available [facility] 4 05:37:58 Herpetic gingivos tomatiti s 09949808 Completed 201109/29/2013 IMPRESSI ON: TX WITH DENAVIR; RECORDED 02/19/20 12 1:39PM BY SHI SKAGGS MA, ANNOTATI ON/ADDEN DUM Not Available [facility] 4 05:37:58 Otalgia 91527434 Completed 201109/29/2013 IMPRESSI ON: X 3 DAYS, NO INFECTIO N, SUSPECT JAW JOINT INFLAMMA TION; RECORDED 02/19/20 12 1:40PM BY SHI SKAGGS MA, ANNOTATI ON/ADDEN DUM Not Available [facility] 4 05:37:58 Pneumoni a 599577390 Completed 201109/29/2013 IMPRESSI ON: IMPROVED ON LEVAQUIN , PREDNISO NE AND INHALERS IN PT WITH ASTHMA, WILL GET REPEAT CXT [facility] IN A WEEK,; RECORDED 02/19/20 12 1:40PM BY SHI SKAGGS MA, ANNOTATI ON/ADDEN DUM Not Available [facility] 4 05:37:59 Secondar y polycyth emia 75848512 Completed 201109/29/2013 IMPRESSI ON: PT SEEN YEST FOR ATYPICAL ECCHYMOT IC LESIONS. LABS DONE AND HGB TRENDING UP. TO HEM/ONC FOR FURTHER ASSESSME NT. NOT A SMOKER. CASE DISCUSSE D WITH DR. AARON Ramsay; RECORDED 02/19/20 12 1:39PM BY SHI SKAGGS MA, ANNOTATI ON/ADDEN DUM Not Available [facility] 4 05:37:59 Eruption [id number] Completed 201209/29/2013 IMPRESSI ON: FROM PICKING HER HEAD WITH NERVES, NO INFECTIO N, TREAT WITH CREAM; RECORDED 01/11/20 13 10:05AM BY SHI SKAGGS MA, ANNOTATI ON/ADDEN DUM Judie Botello MA [facility] 7 15:02:11 Pain in limb 05338222 Completed 201209/29/2013 IMPRESSI ON: LIKELY CONTUSIO N WILL MAKE SURE NO FRACTURE ; RECORDED 09/25/19 13 4:19PM BY NYDIA CHRISTIANSEN MA, ANNOTATI ON/ADDEN DUM Not Available [facility] 4 05:37:59 Right upper quadrant pain 696179237 Completed 201109/29/2013 IMPRESSI ON: THE ECCHYMOT IC LESIONS FOLLOW A ZOSTER LIKE PATTERN. THIS COULD BE AN ATYPICAL PRESENTA TION OF SHINGLES . WILL TREAT IN CASE IT IS THIS. WILL CHECK LABS SINCE ECCHYMOT IC AND IN RUQ. REVIEWED CAUTIONS FOR VICODIN. PT ALSO EXAMINED BY DR. APRIL GOODO CALL IF ANY WORSENIN G; RECORDED 02/19/20 12 1:39PM BY SHI SKAGGS MA, ANNOTATI ON/ADDEN DUM Not Available [facility] 4 05:37:59 Speciali zed medical examinat ion Completed 200809/29/2013 RECORDED 06/19/19 09 10:27AM BY JUDIE BOTELLO, ANNOTATI ON/ADDEN DUM Not Available [facility] 4 05:37:59 Disorder of skin and/or subcutan eous tissue 07995078 Completed 201209/29/2013 IMPRESSI ON: SKIN OF VULVA WITH 6 REDDISH LESIONS SEEMS LIKE VASCULAR LESIONS BUT WILL HAVE DERM CHECK OUT; RECORDED 09/25/19 13 4:19PM BY NYDIA CHRISTIANSEN MA, ANNOTATI ON/ADDEN DUM Not Available [facility] 4 05:37:59 Sprain of shoulder and upper arm Completed 201109/29/2013 RECORDED 02/19/20 12 1:39PM BY SHI SKAGGS MA, ANNOTATI ON/ADDEN DUM Not Available [facility] 4 05:37:59 Acute tonsilli tis 61430000 Completed 201209/29/2013 IMPRESSI ON: NEG QUICK STREP; RECORDED 03/06/19 13 1:55PM BY NYDIA CHRISTIANSEN MA, ANNOTATI ON/ADDEN DUM Not Available [facility] 4 05:37:59 Urinary tract infectio us disease 04527035 Completed 200809/29/2013 RECORDED 05/30/19 09 3:02PM BY BRENDAN COCHRAN MA, ANNOTATI ON/ADDEN DUM Not Available [facility] 4 05:37:59 Vaginiti s and vulvovag initis Completed 201109/29/2013 RECORDED 02/19/20 12 1:39PM BY SHI SKAGGS MA, ANNOTATI ON/ADDEN DUM Not Available [facility] 4 05:37:59 Infestat ion by Sarcopte s scabiei elle hominis 311795782 Completed 03/30/2016 Idalmis prajapati [facility] 7 16:11:16 Eruption 186419369 Completed 03/29/2016 FRIEDA French [facility] 7 15:02:11 White blood cell count outside referenc e range 058783095 Completed 03/30/2016 Idalmis prajapati [facility] 7 16:11:34 Backache 964556674 Completed [facility]/30/2016 [facility] 7 16:11:29 Tinea corporis 33721972 Completed 03/30/2016 IdalmisRey prajapati [facility] 7 16:12:07 Pain in throat 251708031 Completed 03/30/2016 Idalmis prajapati [facility] 7 16:11:32 Sciatica 26873621 Completed 03/30/2016 [facility] 7 16:11:42 Low back pain 475359194 Completed 03/29/2016 FRIEDA French [facility] 7 15:02:14 Pain in lower limb 18735933 Completed 03/29/2016 FRIEDA French [facility] 7 15:01:44 Infectio n of toe 692385782 Completed 03/29/2016 FRIEDA French [facility] 7 15:02:24 Lacerati on of toe 224547795 Completed 03/29/2016 FRIEDA French [facility] 7 15:02:17 Infectio n of foot 579377876 Completed 03/29/2016 FRIEDA French [facility] 7 15:02:28 Slurred speech 369430096 Completed 03/29/2016 Judie Botello MA null, [facility] 7 15:02:20 Headache 31510291 Completed 03/30/2016 Idalmis nicolas null, [facility] 7 16:11:45 Dysfunct ional uterine bleeding Active 2016 FRIEDA Goyal, [facility] 8 15:03:51 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 Active 2017 FRIEDA Goyal, [facility] 8 15:04:12 History of Intestin al infectio n caused by Clostrid ioides difficil e 91888690332 9101 Completed 201704/10/2023 RENUKA RAMÍREZ MD [address], [facility] [place], [address] , [facility] 4 08:20:32 Mild intermit tent asthma 913097029 Active 2019 Idalmis nicolas null, [facility] 0 10:09:22 Eczema 85503311 Active 2020 Judie Botello MA null, [facility] 1 15:05:27 Psoriasi s 9841748 Active 2022 Dominga Krsilvestreapent null, [facility] 3 07:52:52 Irritabl e bowel syndrome with diarrhea 843663472 Active 2022 Dominga Krustapent null, [facility] 3 07:53:26 Tachycar chance 4690341 Active FRIEDA French, [facility] 4 14:41:33 Problem Notes None recorded. Procedures Surgical History Date Name Laterality Status Provider Name and Address Organization Details Recorded Time 05/16/19 25 Most Recent Mammogram completed Katharina Alvarez [facility] 05/16/2024 12:53:24 05/16/19 25 Mammogram screening completed Katharina Alvarez [facility] 05/16/2024 12:53:06 07/15/19 23 Dressing Change completed RENUKA RAMÍREZ MD [address] [address], [place], [address], [facility] 07/14/2022 07:44:40 06/20/19 23 Suture/Staple removal completed RENUKA RAMÍREZ MD [address] [address], [place], [address], [facility] 06/19/2022 10:34:36 06/17/19 23 Suture/Staple removal completed RENUKA RAMÍREZ MD [address] [address], [place], [address], [facility] 06/15/2022 09:30:10 12/21/19 21 Date of Last Pap Smear completed Judie Botello MA [facility] 12/22/2020 11:07:59 05/03/19 19 Mini-Cog Test completed Judie Botello MA [facility] 05/02/2018 08:44:28 07/25/19 17 Mini-Cog Test completed Judie Botello MA [facility] 07/24/2016 14:56:47 10/01/19 16 Suture/Staple removal completed Estrellita Pitt PA-C [address] [address], [place], [address], [facility] 10/01/2015 14:56:47 Tonsillectomy completed Shi Skaggs [facility] 09/04/2013 15:46:02 Imaging Results Imaging Date Name Status LastModified by Organization Details LastModified Time 08/14/2023 electrocardiogram completed In-Offi ce Order Internal Use Only DO Not Attach Compendium DO Not Attach Compendium, Do Not Delete/merge, [id number] 08/14/2023 12:42:32 08/13/2023 electrocardiogram completed In-Offi ce Order Internal Use Only DO Not Attach Compendium DO Not Attach Compendium, Do Not Delete/merge, [id number] 08/13/2023 15:54:01 01/02/2024 MRI, brain, w/o contrast completed [facility] [address], [place], [address], 01/06/2024 16:17:03 05/15/2024 MAMMO, screening, digital, bilateral completed [facility] [address], [place], [address], 05/15/2024 16:37:09 05/15/2024 MAMMO, screening, digital, bilateral completed [facility] ([facility]) [address] [place], [address], 05/16/2024 12:53:29 06/11/2024 mm digital mammo unilat left completed [facility] [address] [place], [address], 06/11/2024 17:26:30 Procedure Notes None recorded. Medical Equipment None Reported. Allergies Allergen ID Allergen Name Allergen Category Reaction Reaction Severity Criticality Documentation Date Start Date Code Code System Note Provider Name and Address Organization Details Recorded Time 51156 Elimite medicatio n rash Not available Not available 10/22/2013 28227 5 RxNorm Idalmis prajapati MA [facility] 4 11:49:40 6664 Augmentin medicatio n diarrhea Not available Not available 09/02/20132013 97165 2 RxNorm FRIEDA Zhou MA [facility] 8 15:06:49 6665 No known allergy (situatio n) Not available Not available Not available Not available 09/02/20132011 49101 6003 SNOMED COMME NT: RECOR DED 11/01 10:34 AM BY SAL GUTHRIE MA, ANNOT ATION /ADDE NDUM; Not Available [facility] 4 13:24:03 Medications Name Sig Start Date [...] completed RECORDED 11/02/19 12 10:33AM BY AMARILIS LE, MEDICATI ON AUTO-EMERY CTIVATIO N; Not Available [...] completed RECORDED 06/25/19 10 1:45PM BY HEATH MELITON SMITH ON/ADDEN DUM; Not Available Not Available Not Available fluconazo [...] RECORDED 06/25/19 10 1:45PM BY MELITON COFFEY ON/ADDEN DUM; Not Available Not Available Not Available [...] active RECORDED 06/21/19 14 3:31PM BY AMARILIS LE, OFFICE VISIT; Not Available Not Available Not Available amoxicill in 875 mg tablet TWO TIMES DAILY 06/27 completed RECORDED 07/19/19 14 10:38AM BY AMARILIS LE, MEDICATI ON AUTO-EMERY CTIVATIO N; Not Available [...] RECORDED 06/21/19 08 9:31AM BY KIMBER BAKER, MEDICMANAN ON AUTO-EMERY CTIVATIO N; Not Available Not [...] completed RECORDED 01/25/20 13 1:38PM BY AMARILIS LE, MEDICATI ON AUTO-EMERY CTIVATIO N; Not Available [...] 09/18/19 10 8:54AM BY TAO JUAREZ, OFFICE VISIT;[facility] Not Available Not Available Not Available Spiriva [...] completed RECORDED 10/24/19 12 2:51PM BY AMARILIS LE, MEDICATI ON AUTO-EMERY CTIVATIO N; Not Available Not Available Not Available Vicodin EVERY 6 HRS NEEDED FOR PAIN 06/05 completed RECORDED 06/06/19 13 12:19PM BY AMARILIS LE, OFFICE VISIT;TH IS ORDER DISCONTI NUED PER MEDI-SPA N. Not Available Not Available Not Available Mucinex D TWO TIMES DAILY, NEEDED CONGESTI ON 2013 active RECORDED 06/21/19 14 4:03PM BY AMARILIS LE, OFFICE VISIT; Not Available Not Available Not [...] Updated DateTime 4 160.02 cm 32.1 kg/m2 63493.6 2 g 98 % 98 % 93 /min 98.7 [degF] 115 mm[Hg] 72 mm[Hg] Judie Botello MA [facility] 4 14:46:23 Date Recorded Body height Body mass index (BMI) Body weight Oxygen saturation Oxygen saturation in Arterial blood by Pulse oximetry Heart rate Body temperature Systolic blood pressure Diastolic blood pressure Provider Name and Address Organization Details Last Updated DateTime 4 160.02 cm 31.9 kg/m2 74057.0 3 g 100 % 100 % 81 /min 98.2 [degF] 118 mm[Hg] 75 mm[Hg] Judie Botello MA [facility] 4 15:23:25 Date Recorded Body height Body mass index (BMI) Body weight Oxygen saturation Oxygen saturation in Arterial blood by Pulse oximetry Heart rate Body temperature Systolic blood pressure Diastolic blood pressure Provider Name and Address Organization Details Last Updated DateTime 4 160.02 cm 32.1 kg/m2 75023.9 2 g 98 % 98 % 87 /min 98.2 [degF] 110 mm[Hg] 76 mm[Hg] Judie Botello MA [facility] 4 09:39:01 Date Recorded Body height Body mass index (BMI) Body weight Oxygen saturation Oxygen saturation in Arterial blood by Pulse oximetry Heart rate Body temperature Systolic blood pressure Diastolic blood pressure Provider Name and Address Organization Details Last Updated DateTime 5 160.02 cm 31.4 kg/m2 10776.9 5 g 99 % 99 % 97 /min 98.2 [degF] 122 mm[Hg] 75 mm[Hg] Judie Botello MA [facility] 5 14:46:57 Date Recorded Body height Body mass index (BMI) Body weight Heart rate Oxygen saturation Oxygen saturation in Arterial blood by Pulse oximetry Body temperature Systolic blood pressure Diastolic blood pressure Provider Name and Address Organization Details Last Updated DateTime 5 160.02 cm 31.5 kg/m2 10514.4 4 g 81 /min 98 % 98 % 98.3 [degF] 110 mm[Hg] 71 mm[Hg] Brendan madrigal MA [facility] 5 13:55:06 Social History Question Answer Notes LastModified by Organizat ion Details LastModified Time Tobacco Smoking Status Never Smoker Shi prajapati [facility] 09/04/2013 15:53:32 Do You Have An Advance Directive? No Information not available 01/20/2022 What Is Your Level Of Alcohol Consumption? None Information not available 08/27/2020 Is Blood Transfusion Acceptable In An Emergency? Yes [email or web address] Information not available 10/16/2014 What Is Your Level Of Caffeine Consumption? Occasional Seldom Information not available 08/27/2020 How Much Tobacco Do You Chew? None Information not available 08/04/2019 In The 14 [...] available 01/20/2022 Are You Currently Employed? No [email or web address] Information not available 02/15/2015 What Type Of Diet Are You Following? REGULAR Eating Mostly Chicken And Fish [email or web address] Information not available 04/05/2022 Which Illicit Or [...] Take Precautions To Prevent Distracted Driving? Yes [email or web address] Information not available 10/16/2014 How Often Do You Need To Have Someone Help You When You Read Instructions, Pamphlets, Or Other Written Material From Your Doctor Or Pharmacy? Sometimes [email or web address] Information not available 10/16/2014 Have You Served In The ? No [email or web address] Information not available 12/22/2020 Have You Or Anyone In Your Household Had Any Of The Following Symptoms In The Last 14 Days: Sore Throat, Cough, Chills, Body Aches For Unknown Reasons, Shortness Of Breath For Unknown Reasons, Loss Of Smell, Loss Of Taste, Fever At Or Greater Than 100 Degrees Fahrenheit? No [email or web address] Information not available 08/18/2019 Are You Or Anyone In Your Household A Health Care Provider Or Emergency Responder? No [email or web address] Information not available 08/18/2019 To The Best Of Your Knowledge Have You Been In Close Proximity To Any Individual Who Tested Positive For COVID-19? No [email or web address] Information not available 08/18/2019 *AWV ONLY* Are You Presently Prescribed Opioid Medication By PCP Or Specialist? If YES -Provider Assess The Benefit For Other, Non-opioid Pain Therapies Instead, Even If The Patient Does Not Have OUD But Is Possibly At Risk. No [email or web address] Information not available 12/22/2020 Have You Recently Traveled To A [place] [address] High Risk Area Or Gathering In The Last 10 Days? No [email or web address] Information not available 03/18/2020 What Was The Date Of Your Most Recent Tobacco Screening? 04/12/2023 [email or web address] Information not available 04/12/2023 How Many Children Do You Have? 0 Information not available 08/27/2020 What Is Your Relationship Status? Single Information not available 01/20/2022 Seat Belts Used Routinely Yes Information not available 01/20/2022 Are You Sexually Active? Yes Woman Partner [email or web address] Information not available 02/15/2015 Smoke Alarm In Home Yes Information not available 01/20/2022 At What Age Did You Start Smoking Tobacco? 0 [email or web address] Information not available 08/04/2019 Do You Or Have You Ever Used Smokeless Tobacco? Never Used Smokeless Tobacco [email or web address] Information not available 08/04/2019 How Much Tobacco Do You Smoke? No [email or web address] Information not available 08/04/2019 General Stress Level Medium Information not available 01/20/2022 Do You Use Sunscreen Routinely? Yes [email or web address] Information not available 10/16/2014 Sex: Unknown Functional Status Question Answer Note LastModified by Organizat ion Details LastModified Time Are you able to walk? YESWOREST Information not available 01/20/2022 Are you able to care for yourself? Yes [email or web address] Information not available 02/15/2015 What is your exercise level? Occasional walking 3 x week Information not available 08/27/2020 Mental Status None recorded. Family History Relationship Description Onset Age of this Age Resolved Age Notes LastModified by Organization Details LastModified Time Mother Carcinoma in situ of breast Not available 02/15 11:12:37 Maternal Grandmother Carcinoma in situ of breast [email or web address] Not available 02/15 11:12:37 Maternal Grandfather Myocardial infarction [email or web address] Not available 01/20 11:12:37 Notes:No FH of [...] Details Recorded Time [facility]dap 6 [facility] 13:24:33 Influenza, split virus, quadrivalent, PF 5 completed Not Available [facility] 03/08/2019 02:22:02 pneumococcal polysaccharide PPV23 5 completed Not Available [facility] 03/08/2019 02:21:42 COVID-19, mRNA, LNP-S, PF, 30 mcg/0.3 mL dose 1 completed FRIEDA Dexter [facility] 01/20/2022 13:24:02 COVID-19, mRNA, LNP-S, PF, 30 mcg/0.3 mL dose 1 completed FRIEDA Dexter [facility] 01/20/2022 13:24:02 COVID-19, mRNA, LNP-S, PF, 30 mcg/0.3 mL dose 1 completed FRIEDA Dexter, [facility] 01/20/2022 13:24:02 COVID-19, mRNA, LNP-S, bivalent, PF, 30 mcg/0.3 mL dose 2 completed FRIEDA Dexter, [facility] 01/20/2022 13:24:33 Td (adult), 5 Lf tetanus toxoid, preservative free, adsorbed 4 completed FRIEDA Dexter, [facility] 01/20/2022 13:24:33 Influenza, MDCK, quadrivalent, PF 0 completed FRIEDA Dexter, [facility] 01/20/2022 13:24:33 Tdap 3 completed FRIEDA French, [facility] 08/17/2022 11:37:19 Influenza, split virus, quadrivalent, PF 3 completed FRIEDA French, [facility] 04/26/2023 14:40:16 Influenza, split virus, quadrivalent, PF 6 completed Not Available [facility] 03/08/2019 02:22:04 Influenza, split virus, quadrivalent, PF 7 completed Not Available [facility] 03/08/2019 02:22:11 Influenza, split virus, quadrivalent, PF 8 completed Not Available [facility] 03/08/2019 02:22:15 Influenza, split virus, trivalent, PF 4 completed Not Available [facility] 03/08/2019 02:21:57 Influenza, split virus, quadrivalent, PF 9 completed Not Available [facility] 03/08/2019 02:22:10 Influenza, split virus, quadrivalent, PF 1 completed Idalmis dooley null, [facility] 12/22/2020 11:24:47 Meningococcal MCV4O 6 completed Not Available [facility] 09/02/2013 13:58:38 Influenza, split virus, trivalent, preservative 7 completed Not Available [facility] 09/02/2013 13:58:38 Influenza, split virus, trivalent, preservative 8 completed Not Available [facility] 09/02/2013 13:58:38 Tdap 8 completed Not Available [facility] 09/02/2013 13:58:38 Influenza, split virus, trivalent, preservative 0 completed Not Available [facility] 09/02/2013 13:58:38 Influenza, split virus, trivalent, preservative 1 completed Not Available [facility] 09/02/2013 13:58:38 Influenza, split virus, trivalent, preservative 2 completed Not Available [facility] 09/02/2013 13:58:38 influenza, seasonal, intradermal, preservative free 3 completed Not Available [facility] 09/02/2013 13:58:38 Influenza, split virus, quadrivalent, PF 2 completed Idalmis millero null, [facility] 12/01/2021 10:15:17 Influenza, split virus, trivalent, PF 4 completed RENUKA RAMÍREZ MD [address], [address], [facility] [place] 19:00:12 Past Encounters Encounter ID Performer Location Encounter Start Date Encounter Closed Date Diagnosis/Indication Diagnosis SNOMED-CT Code Diagnosis ICD10 Code Diagnosis Note [id number] ALEX Maya Main Office [address] [facility] [address] [place] [address] 09/04/2013 15:31:37 09/04/2013 17:14:27 Anxiety 24759318 Chest pain 37968506 Abdominal pain [id number] [employer]ce [address] [facility] [place] [address] 04/06/2006 00:00:00 [id number] auto[employer]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 [address] [facility] [place] [address] 07/20/2005 00:00:00 [id number] [address] [place] [address] 08/09/2005 00:00:00 [id number] [employer] erce [address] [address] [place] [address] 08/24/2005 00:00:00 [id number] auto[employer] erce [address] [address] [place] [address] 07/04/2006 00:00:00 [id number] auto[employer] erce [address] [facility] [address],[place] [address] [place] [address] 07/11/2006 00:00:00 [id number] auto[employer]Comm erce [address] [facility],[place] [address] [place] [address] 09/18/2006 00:00:00 [id number] autoEComm erce [address] [facility] [address] [place] [address] 12/17/2006 00:00:00 [id number] auto[employer]Comm erce [address] [facility] [address] [place] [address] 12/24/2006 00:00:00 [id number] autoEComm erce [address] [facility] [address] [place] [address] 03/20/2007 00:00:00 [id number] auto[employer] erce [address] [facility] [address] [place] [address] 06/14/2007 00:00:00 [id number] auto[employer]Comm erce [address] [facility] [address] [place] [address] 07/04/2007 00:00:00 [id number] auto[employer]Comm erce [address] [facility] [address] [place] [address] 01/09/2008 00:00:00 [id number] autoEComm erce [address] [facility],[place] [address] [place] [address] 05/29/2008 00:00:00 [id number] auto[employer]Comm erce [address] [address] [place] [address] 06/18/2008 00:00:00 [id number] autoEComm erce [address] [address] [place] [address] 09/24/2008 00:00:00 [id number] autoEComm erce [address] [address] [place] [address] 10/05/2008 00:00:00 [id number] autoEComm erce [address] [address] [place] [address] 11/26/2008 00:00:00 [id number] autoEComm erce [address] [address] [place] [address] 01/13/2009 00:00:00 [id number] autoEComm erce [address] [facility],[place] [address] [place] [address] 05/13/2009 00:00:00 [id number] autoEComm erce [address] [facility] [address],[place] [address] [place] [address] 06/16/2009 00:00:00 [id number] autoEComm erce [address] [facility],[place] [address] [place] [address] 07/26/2009 00:00:00 [id number] autoEComm erce [address] [facility],[place] [address] [place] [address] 09/17/2009 00:00:00 [id number] autoEComm erce [address] [facility] [address],[place] [address] [place] [address] 01/05/2010 00:00:00 [id number] autoEComm erce [address] [facility],[place] [address] [place] [address] 01/14/2010 00:00:00 [id number] autoEComm erce [address] [facility],[place] [address] [place] [address] 02/17/2010 00:00:00 [id number] autoEComm erce [address] [facility],[place] [address] [place] [address] 06/29/2010 00:00:00 [id number] autoEComm erce [address] [address] [place] [address] 07/27/2010 00:00:00 [id number] autoEComm erce [address] [address] [place] [address] 12/01/2010 00:00:00 [id number] autoEComm erce [address] [address] [place] [address] 12/19/2010 00:00:00 [id number] autoEComm erce [address] [address] [place] [address] 01/11/2011 00:00:00 [id number] autoEComm erce [address] [address] [place] [address] 01/18/2011 00:00:00 [id number] autoEComm erce [address] [address] [place] [address] 01/24/2011 00:00:00 [id number] autoEComm erce [address] [address] [place] [address] 02/27/2011 00:00:00 [id number] autoEComm erce [address] [address] [place] [address] 07/19/2011 00:00:00 [id number] autoEComm erce [address] [address] [place] [address] 08/14/2011 00:00:00 [id number] autoEComm erce [address] [address] [place] [address] 08/18/2011 00:00:00 [id number] autoEComm erce [address] [address] [place] [address] 10/24/2011 00:00:00 [id number] autoEComm erce [address] [address] [place] [address] 11/02/2011 00:00:00 [id number] autoEComm erce [address] [address] [place] [address] 02/19/2012 00:00:00 [id number] autoEComm erce [address] [address] [place] [address] 03/06/2012 00:00:00 [id number] autoEComm erce [address] [address] [place] [address] 06/05/2012 00:00:00 [id number] autoEComm erce [address] [address] [place] [address] 06/10/2012 00:00:00 [id number] autoEComm erce [address] [address] [place] [address] 06/28/2012 00:00:00 [id number] autoEComm erce [address] [address] [place] [address] 09/24/2012 00:00:00 [id number] autoEComm erce [address] [address] [place] [address] 10/25/2012 00:00:00 [id number] autoEComm erce [address] [address] [place] [address] 01/10/2013 00:00:00 [id number] autoEComm erce [address] [address] [place] [address] 01/24/2013 00:00:00 [id number] autoEComm erce [address] [address] [place] [address] 2013 00:00:00 [id number] autoEComm erce [address] [address] [place] [address] 06/20/2013 00:00:00 [id number] ALEX Le Main Office [address] [place] [address] 10/14/2013 14:06:23 10/14/2013 14:56:05 Infestation by Sarcoptes scabiei elle hominis [id number] call if does not improve after second treatment in a week [id number] Idalmis nicolas MD Main Office [address] [facility] [address] [facility] [address] 10/16/2013 13:38:05 10/16/2013 14:08:14 Asthma 968180766 well cotnrolled continue meds Bipolar I disorder 507478943 on meds and in counsleing Disorder of coccyx 87683290 healing, hx of a fall Infestatio n by Sarcoptes scabiei elle hominis [id number] did tx and laundry, pt is crying over having scabies, reasoned with her aobut a self limited event, she calmed down by the time she left and has her therapist for supprt [id number] Idalmis nicolas MD Main Office [address] [facility] [address] [facility] [place] [address] 10/22/2013 10:56:55 10/22/2013 11:43:54 Eruption 267168221 severe allergic reaction to elimite, pt to finish medrol dose pack, use benadryl at night adn try motrin for the pain Bipolar I disorder 603093910 on meds and in counsleing , pt is seeing ehr therapist today,she is coping better than the other night when she went to the ER nad spoke tot he social group 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 Infestatio n by Sarcoptes scabiei elle hominis [id number] pt treated herself with elimite 2 tiems a week apart, she has a reaction to the elimite. she is on the last 2 days of the medrol dose pack and doing well, in the past she had had joe with prednisone but doing better this time. [id number] Idalmis nicolas MD Main Office [address] [facility] [address] [facility] [address] 12/03/2013 08:44:24 12/03/2013 09:35:46 Bipolar I disorder 696185268 pt is feeling very depressed, states she [...] not want to complicate anything today Eruption 114651323 very faint, pt is very nervous about [...] days to help if possible drug related. [id number] ALEX Maya Main Office [address] [address] 12/10/2013 16:23:48 12/10/2013 16:55:47 Needs influenza immunization 656086862 Bipolar I disorder 662596184 Patient hadher meds changed on Sunday by her prescriber and has seen her therapist since last visit 12/03. She does not feel SI/HI, mood is better. Eruption [id number] Saw kirt almonte on Sunday who prescribed cream for her rash, it is improving and pt feels better. [id number] Idalmis nicolas MD Main Office [address] [place] [address] 06/10/2014 15:24:10 06/10/2014 16:08:41 Bipolar I disorder 325498336 on meds and feels they are helping. 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 Asthma 941495152 a bit o f a flare, was put on steroids last month, continue meds. [id number] Idalmis nicolas MD Main Office [address] [place] [address] 10/16/2014 10:41:58 10/16/2014 11:34:30 Bipolar I disorder 925025181 on meds and feels they are helping. is working with therapist on maybe volunteeri ng. Anxiety 25566670 Asthma 308395061 asthma is controlled . Backache 030362647 Needs infl uenza immunization 921441267 Eruption [id number] looks like sun reaction, use otc hydrocorti sone and lotion [id number] Idalmis nicolas MD Main Office [address] [facility] [address] [place] [address] 02/15/2015 10:56:10 02/15/2015 11:53:33 Adult health examination 729520207 Z00.00 pap next year, will add more exercise. Bipolar I disorder 71799 6008 F31.9 on meds and feels they are helping. is working with therapist and is volunteeri ng. Administra tion of pneumococcal vaccine 63865743 Z23 Asthma 529404914 J45.90 9 asthma is controlled . will get pneumovax today, never had [id number] Josee Casillas MD Main Office [address] [place] [address] [place] [address] 07/09/2015 09:56:30 07/09/2015 10:35:29 Pain in throat 082580204 R07.0 rapid strep is negative. Viral infection. Advised NSAIDs or tylenol, fluids and rest. [id number] Idalmis nicolas MD Main Office [address] [place] [address] [place] [address] 08/16/2015 14:51:18 08/16/2015 15:18:13 Asthma 138304003 J45.909 asthma is controlled Bipolar I disorder 67002 6008 F31.9 just finished partial hospitaliz ation, continue meds nad therapy Sciatica 36410523 M54.31 into right calf, positive straight leg raise, pt to see PT Low back pain 506288254 M54.5 PT referral, flexeril for night if spasms [id number] Idalmis nicolas MD Main Office [address] [place] [address] [place] [address] 09/09/2015 09:14:35 09/09/2015 10:18:31 Impacted cerumen 66792993 H61.23 soaked and lavaged without problems Pain in lower limb 36965 006 M79.604 spasm, pt to try soma and exercise and stretch [id number] Estrellita Pitt PA-C Main Office [address] [place] [address] [place] [address] 09/24/2015 13:53:33 09/24/2015 15:00:06 Infection of toe 723606612 L08.9 Start Abx as directed. Dressing changes daily , apply topical Abx as well. Laceration of toe 916589 004 S91.119A Remove sutures as scheduled next week. [id number] Estrellita Pitt PA-C Main Office [address] [facility] [address] [place] [address] 09/29/2015 08:38:23 09/29/2015 09:42:03 Infection of toe 623719787 L08.9 Switch from Keflex to Bactrim DS BID for 10 days. Wound culture taken. Recheck in 3-4 days and remove sutures. [id number] Estrellita Pitt PA-C Main Office [address] [address] [place] [address] 10/01/2015 08:45:49 10/01/2015 09:23:21 Laceration of toe 654603175 S91.119A 3 sutures removed w/o significan t discomfort . Pt. is advised to keep wound covered until full closure and scab comes off. Infection of toe 0418412 06 L08.9 Continue Bactrim DS as directed. Check on wound culture results. F/u prn. [id number] Idalmis nicolas MD Main Office [address] [address] [place] [address] 10/21/2015 12:42:29 10/21/2015 13:28:14 Slurred speech 928232971 R47.81 I viewed her video on her phone, unclear, she denies any substances , will get US and Ct to rule out any CVA/bleed but very unlikely, if it recures pt was told to go to ER, Headache 25981114 R51 mild, only a day or 2, not there with slurred speecha dn very mild [id number] Idalmis nicolas MD Main Office [address] [address] [place] [address] 11/25/2015 10:41:59 11/25/2015 11:44:21 Slurred speech 768172282 R47.[address] of head and carotid US Influenza vaccine needed 3866210681 106 Z23 Asthma 252718226 J45.90 9 asthma is controlled .she was followed by Eddie Haywood but she just retired, was on Brevo inhaler but stopped it. Is on singulair and proair prn. Bipolar I disorder 03089 6008 F31.9 is on meds, thinks she gained weight due to stress eating. continue meds [id number] Estrellita Pitt PA-C Main Office [address] [address] 12/10/2015 13:49:46 12/10/2015 14:57:55 Candidiasis of mouth 01794811 B37.0 [id number] Idalmis nicolas MD Main Office [address] [address] 03/29/2016 15:00:02 03/29/2016 15:46:19 Asthma 765704682 J45.909 asthma is controlled . continue meds Bipolar I disorder 63236 6008 F31.9 is on meds, mood is stable, volunteeri ng which is good for her, just out of partial hospitaliz ation [id number] Idalmis nicolas MD Main Office [address] [address] 07/06/2016 14:52:06 07/06/2016 15:43:01 Vitamin D deficiency 32175973 E55.9 take weekly med Bipolar I disorder 15221 6008 F31.9 is on meds, mood is stable, volunteeri ng which is good for her, just out of partial hospitaliz ation [id number] Idalmis nicolas MD Main Office [address] [address] 07/24/2016 14:52:50 07/24/2016 15:34:41 Adult health examination 145541029 Z00.00 is exercising a lot and feels well, disappoint ed no weight loss but feels better. Change in skin lesion 39 4979233 L98.9 left arm, we will make appt with DR Tobin Asthma 461487718 J45.90 9 asthma is controlled . continue meds Bipolar I disorder 63620 6008 F31.9 is on meds, mood is stable, volunteeri ng which is good for her, in therapy and doing a voluntary day program [id number] Idalmis nicolas MD Main Office [address] [facility] [address] [place] [address] 10/30/2016 09:38:36 10/30/2016 10:12:18 Needs influenza immunization 445036314 Z23 Hypothyroidism 82085573 E03.9 pt is on meds and takes them regularly, due for recheck of level Asthma 492385339 J45.90 9 asthma is controlled . continue meds Bipolar I disorder 61776 6008 F31.9 is taking meds regularly, med provider will be changing and pt is due for a level and she will call and get an order for a level and who her next med provider will be [id number] Idalmis nicolas MD Main Office [address] [place] [address] [place] [address] 11/23/2016 12:49:42 11/23/2016 13:32:00 Dysfunctional uterine bleeding 07248357 N93.8 see hx, due for pap but will refer to machine packager due to DUB, may need treatment with provera, pt with depression should tell machine packager provider this, Backache 655667314 M54.9 use motrin as needed Asthma 354944858 J45.90 9 asthma is controlled . 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 Bipolar I disorder 73243 6008 F31.9 doing very well [id number] Idalmis nicolas MD Main Office [address] [address] [place] [address] 05/16/2017 10:22:08 05/16/2017 11:05:23 Hypothyroidism 46597605 E03.9 off meds for 2 weeks, restart and check level in 2 months Hyperhidrosis 983655007 R61 wrote down instructio ns for pt to take 3 days in a row, then change to 2 times a week and use regular deodorant too Asthma 546535165 J45.90 9 asthma is controlled . Bipolar I disorder 52139 6008 F31.9 doing very well [id number] Johanne Quinonez [facility] Main Office [address] [facility] [address] [place] [address] 06/01/2017 15:02:22 06/01/2017 15:37:39 Hypothyroidism 96029607 E03.9 Last TSH 6.65, will increase levothyrox ine to 37.5mcg daily. new rx providd. she has lab orders and will have them checked in 4-6 weeks. Contusion of forearm 398 37085 S50.11XA small contusion, improving. Bipolar I disorder 93031 6008 F31.9 Recent partial hospitaliz ation x 2 weeks, discharged today, is feeling better and looking forward to her [place]iar[place] vacation starting on sunday. [id number] Johanne Quinonez [facility] Main Office [address] [place] [address] [place] [address] 07/27/2017 13:51:39 07/27/2017 14:17:38 Horse bite wound 949478604 W55.11XA Healing well, currently on clinda based on culture results. she is taking a probiotic, eating yogurt, instructed to eat 20 mins prior to abx. Call or return for any concerns or worsening. Open wound of abdominal wall 867111682 S31.100A [id number] Josee Casillas MD Main Office [address] [address] [place] [address] 12/04/2017 11:06:41 12/04/2017 11:40:34 Needs influenza immunization 143314199 Z23 [id number] Izaiah Prajapati MD Main Office [address] [address] [place] [address] 12/14/2017 15:10:05 12/14/2017 16:03:05 Seborrheic dermatitis of scalp 590311424 L21.0 Seborrheic dermatitis 50 732839 L21.9 Will cover initially for both fungal and bacterial etiologies with low potency steroid for inflammati on. Less likely psoriasis but if persistent /worse will need derm referral. Impetigo 63048413 L01.00 [id number] Idalmis nicolas MD Main Office [address] [facility] 207 [facility] [place] [address] 04/03/2018 13:53:17 04/03/2018 14:54:27 Asthma 784697624 J45.909 Refilled pro air to use prn Acute otitis media 38186 03 H66.92 Advise to use otc pain [...] any dizziness or chest discomfort . Eruption 045250658 R21 Does not appear to be shingles, infection or coxsackie virus at this time. Will use desonide bid (has this at home). Call if rash not improving. Likely contact dermatitis vs eczema. 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 Medication monitoring 39 0277971 Z51.81 needs EKG due to meds for bipolar Impacted c erumen of bilateral ears 8122571245 116138 H61.23 soak and lavage today . canals clear upon discharge Asthma 812547143 J45.90 9 asthma is controlled . 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 Encouraged less carbs and increased exercise. Labs are normal, will check fasting BS with next labs Hypothyroidism 05635663 E03.9 TSh trending up , now close to 10. Will gradually increase med alternatin g 1 with 1.5 of levothyrox ine daily. Check TSH 6 weeks Bipolar I disorder 93927 6008 F31.9 pt doing better continue meds listed and will call therapist if not doing well. Follows with current mental health providers. [id number] Izaiah Prajapati MD Main Office [address] [address] 12/20/2018 14:53:53 12/20/2018 15:58:11 Lumbar radiculopathy [id number] M54.16 start medrol today and PT alan next week, TC#3 sparingly for pain, supplement with otc meds. Pt aware no refills on pain med. Rest but change position and walk frequently . Stretching at home. Call or ED if acutely worse or any bowel/blad shona sx. Followup in a few weeks. [id number] Izaiah Prajapati MD Main Office 3640 [facility] [address] [place] [address] 01/10/2019 13:55:04 01/10/2019 14:39:13 Low back pain 187653585 M54.5 Continue PT for another 4-6 weeks, continue home exercises Acute back pain with sciatica 792942198 M54.42 use mobic for a week then prn if still having pain. If not better in 4-6 weeks, consider imaging. [id number] Idalmis nicolas MD Main Office 3640 [facility] [address] [place] [address] 01/24/2019 10:34:24 01/24/2019 10:53:58 [id number] Idalmis nicolas MD Main Office 3640 [facility] [address] [place] [address] 08/04/2019 13:56:48 08/04/2019 15:29:46 Impacted cerumen 26588803 H61.23 removed today, right canal still red, distally has some ? soft wax 7-8 oclock, ? cholesteat german[place] will recheck in 2 weeks, no water in right ear. Call if any pain or changes in ear or hearing. [id number] Idalmis nicolas MD Main Office 3640 [facility] [address] [place] [address] 08/18/2019 13:46:56 08/18/2019 14:21:42 Serous otitis media 18314364 H65.91 steam, flonase, keep hydrated, ENT if not better. Cannot take oral steroids, makes her manic. 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 but sees them, more positive than in the past Screening for malignant neoplasm of breast 749871237 Z12.39 pt to set up first mammogram Bipolar I disorder 97916 6008 F31.9 doing very well, will get orer from psychiatry for a lithium level Hypothyroidism 89022765 E03.9 get thyroid test Eczema 18979616 L30.9 eyebrows, ears tx as below Psoriasis of scalp 41244 8008 L40.9 Screening for malignant neoplasm of cervix 095567471 Z12.4 pt to make appt [id number] Idalmis nicolas MD [facility] 3640 [facility] [address] [place] [address] 10/02/2019 06:24:57 10/06/2019 09:11:51 Hypothyroidism 10902252 E03.9 elevated TSH ordered by psych, will increase dose and recheck in 6 weeks. Bipolar I disorder 34333 6008 F31.9 doing well, labs by psychiatry , will talk with pharmacist how to take the thyroid and lithium levels so they do not interfere with each other Mild inter mittent asthma 523207146 J45.20 stable continue meds [id number] Idalmis nicolas MD [facility] 3640 [facility] [address] [facility] [place] [address] 10/16/2019 08:37:38 10/16/2019 11:49:29 Hypothyroidism 27261180 E03.9 thyroid dose was increased recently but now pt does not feel well. plan is to have pt recheck thyroid level today, she is taking it midday a few hours after lithium,sh e had asked the pharmacist for suggestion , so this is different than how she took it in the past Bipolar I disorder 20723 6008 F31.9 feels very emotional Not grounded . is working with therapist, no suicidal plans but has some thoughts, feels safe and promises she can keep herself safe, work with counselor [id number] Idalmis nicolas MD [facility] 3640 [facility] [address] [place] [address] 11/28/2019 12:54:48 12/02/2019 10:41:25 Seborrheic dermatitis of scalp 366082621 L21.0 Use Tgel hampoo a few time a week and then put lotion on affected areas bid for a week, then use prn only, call if not helping and would do dermatolog y referral [id number] Idalmis nicolas MD Main Office 3640 [facility] [address] [place] [address] 03/18/2020 15:02:30 03/18/2020 16:15:08 Eczema 31506896 L30.9 on MTX, improving, pt knows to take extra precaution s against Covid infectin Anxiety state 100712474 F41.1 on meds, sees counselor hard 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 [employer] which 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 Bipolar I disorder 48881 6008 F31.9 a bit of a struggle but doing ok, more resources, Mild inter mittent asthma 270335787 J45.20 stable continue meds Hypothyroidism 45992593 E03.9 continue meds [id number] Idalmis nicolas MD Main Office [address] [address] 07/14/2020 13:22:37 07/14/2020 13:57:55 Eczema 34870475 L30.9 on MTX, improving, pt knows to take extra precaution s against Covid infection Mild inter mittent asthma 321495215 J45.20 stable continue meds Hypothyroidism 89174516 E03.9 continue meds Macromastia 044503012 N6 2 pain in shoulders and upper back and rashes under breasts considerin g breast reduction, will refer to plastic surgeon Screening for malignant neoplasm of breast 539963728 Z12.39 pt to set up first mammogram Bipolar I disorder 22514 6008 F31.9 a bit of a struggle but doing ok, more resources, [id number] Reyes Fine MD Main Office [address] [address] 08/27/2020 10:24:55 08/27/2020 12:15:05 Impacted cerumen 75218249 H61.23 Cerumen removed in Right.Left sided aborted after removal of some wax in the exterior ear as it looked like patient caused trauma to her ear drum from q-tip use. Mild inter mittent asthma 134814294 J45.20 Notes under controll with inhalers, needed refills. Acute otitis media 63377 03 H66.92 After wax removal patient notes improvemen t in hearing denies vomiting, dizziness, or facial weakness, fever. Will provide ear drops advised injured ear drums can heal on its own thus will f/u in 2 weeks to reassess. Will refer to ent. Perforatio n of tympanic membrane 50117917 H72.92 [id number] Idalmis nicolas MD Main Office 3640 [facility] 207 [facility] [address] 12/22/2020 10:51:31 12/22/2020 11:39:16 Adult health examination 318495197 Z00.00 doing pretty well, keeping active, in counseling weekly and meds by psychiatry , anxiety due to upcoming skin lesion resection. 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 Hypothyroidism 90966490 E03.9 continue meds check labs Mild inter mittent asthma 741856652 J45.20 stable continue meds Needs infl uenza immunization 684582931 Z23 Lesion of skin of face 0473122825 [address] Tobin with malignancy getting removed 01/03 nervous [id number] Idalmis nicolas MD Main Office 3640 [facility] 207 [facility] [address] 12/01/2021 09:39:44 12/01/2021 10:21:17 Hypothyroidism 36353581 E03.9 check level and continue med Needs infl uenza immunization 879789657 Z23 Bipolar I disorder 77553 6008 F31.9 a bit of a struggle but doing ok, in counseling and sees psychiatry and 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 Mild inter mittent asthma 559023247 J45.20 stable continue meds Psoriasis 0463982 L40.9 on humira and will see dermatolog y today pt knows she is immune suppressed due to med and should keep up with covid boosters Urgent ollie sanjuana to urinate 67310672 R39.15 sometimes has incontinen ce, pt to set up appt [id number] Idalmis nicolas MD Main Office 3640 [facility] [address] [facility] [place] [address] 01/20/2022 13:20:16 01/20/2022 14:26:12 Anxiety state 326374859 F41.1 Pt is having full anxiety, panic and depression with suicidal thoughts but no intentions . She had the visit with Dr Ny and contracts for safety, has crisis numbers, family and therapist support. Does not feel the need for ED evaluation . Dr Ny and patient comforatab le with the plan. Reschedule AWV later. [id number] Idalmis nicolas MD Main Office 6030 [facility] [address] [place] [address] 04/05/2022 14:54:10 04/05/2022 15:57:29 Adult health examination 866358306 Z00.00 Pt is in good general health with mental health stable and improved. 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 Social and family history reviewed. Immunizati ons reviewed, advised annual flu shot which she had. She is not up to date on dental and eye providers, will make appt. mammogram utd, machine packager utd Reviewed diet and exercise. Hypothyroidism 44619286 E03.9 recent tsh normal Mild inter mittent asthma 210733530 J45.20 renew med, uses prn Bipolar I disorder 46743 6008 F31.9 pt doing better continue meds listed and will call therapist if not doing well. Follows with current mental health providers. 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 0 pt gets meds for bipolar from Dr Porfirio Hearn in [facility] heartrate 107, EKG with NSR, normal QT interval. Hypothyroidism 08299711 E03.9 continue med [id number] RENUKA RAMÍREZ MD Main Office 3640 [facility] [address] [place] [address] 06/16/2022 12:51:46 06/16/2022 13:43:42 Laceration of finger 883014281 S61.210A - pt had 8 sutures placed on right second digit after laceration with veggie cutter- 2 sutures were removed today as it was noted as the sutures were removed patient skin had not completely healed, will remove rest 12-14 day usman- RTC in 2 days Transition of care from emergency department to self-care 4699759189 30218 Z76.89 - presented to urgent care on 06/06 after laceration of right second and third digits [id number] RENUKA RAMÍREZ MD Main Office [address] [place] [address] [place] [address] 06/19/2022 09:20:48 06/19/2022 10:05:55 Laceration of finger 832396131 S61.210D - pt had 8 sutures placed on right second digit after laceration with veggie cutter- 2 sutures were removed on 06/16- other 6 suture were removed today on 06/19- pt does have one small area were the laceration is still prominent therefore wound precaution s were given- RTC if patient note warm, tenderness , redness or discharge [id number] Idalmis nicolas MD Main Office [address] [place] [address] [place] [address] 06/30/2022 15:53:21 06/30/2022 16:22:25 Injury of finger 98136093 S69.91XD see hpi and PE. 3rd finger cauterized in UC still with balck hard cover and 2nd healing after sutures. will refer to plastic surgery to address the 3rd finger, asked for appt early next week. 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- [facility] Bipolar I disorder 63934 6008 F31.9 - follows with psychiatry every 3 months, as a new provider started seeing one year ago- currently on quetiapine 800mg QD and lithium 600mg BID- medication s filled by psychiatrlucie almonte Mild inter mittent asthma 605737036 J45.20 - pt takes albuterol pump has needed (will go months without using it)- take singular 10mg daily Injury of finger 7558341 8 S69.91XD - second digit all sutures removed, wound still has dried blood, healing very slow- third finger still black with very little improvemen t since 06/06- pt was referred to plastics> [facility] cannot see patient until after December, called to push date forward, request refused> currently looking for other plastic surgeons in the area- ED precaution s given- RTC in one month for continued follow-up Psoriasis 8707599 L40.9 - currently on humira injections which provides relief [id number] RENUKA RAMÍREZ MD Main Office 3640 [facility] 207 [facility] [address] 07/14/2022 13:23:31 07/14/2022 14:05:46 Injury of finger 47436191 S69.91XD - improving- second digit all sutures removed, wound still has dried blood, healing very slow- third finger cautrized wound is healing, scabbing is regressing - pt was referred to plastics> [facility] cannot see patient until after December, [...] for healing.- wound care referral also provided [id number] RENUKA RAMÍREZ MD Main Office 3640 [facility] [address] [place] [address] 08/17/2022 11:20:11 08/17/2022 12:07:00 Injury of finger 09647991 S69.91XD - improving- second digit: at today visit noted that piece of skin that was originally sutured is no longer in place. The skin was removed. Well-heale d tissue noted underneath .- third finger which was cauterized is now healed- pt was referred to plastics> [facility] cannot see patient until after December, [...] to ensure second digit has fully healed [id number] Josee Casillas MD Main Office 3640 [facility] [address] [place] [address] 08/29/2022 12:52:30 08/29/2022 13:46:55 Impacted cerumen of bilateral ears 9839859905 665056 H61.23 Acute righ t otitis media 936672988 H66.91 [id number] RENUKA RAMÍREZ MD Main Office 3640 [facility] [address] [place] [address] 09/28/2022 14:37:07 09/28/2022 15:09:58 Injury of finger 70482858 S69.91XD - now resolved, second and third digit have completely healed- pt was referred to plastics> [facility] cannot see patient until after December, [...] 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 do not believe pain is coming from accident with madison guadarrama as patient was not having this pain at time of the accident or at any of the follow-up visits were her wound was treated- ordered Nocturnal wrist splinting in the neutral position- universal wrist brace bilateral- Medication s- ibuprofen and tylenol as needed- Electrodia gnostic studies hold off for now- pt advised to practice mindfullne ss to help with the pain Anxiety 51328538 F41.9 [id number] RENUKA RAMÍREZ MD Main Office [address] [facility] [address] 04/12/2023 12:51:49 04/12/2023 13:39:38 Adult health examination 194067769 Z00.00 Health Maintenanc e FemaleA) Patient was [...] cellsNext: DUE (pt advised to follow with machine packager) Last Colonoscop y: start at age 45-75Date: Result: Next: not yet of age Last DEXA scan:Date: due at 64Result: ??? C) Vaccines:I nfluenza: not this yearTdAP: 06/06/2022Z felix: due at 10UGK72: due at 69RJOS31: 02/15/2015 PCV20:PCV1 5:COVID: , 05/17/2020, 01/11/2021 , 12/07/2021 D) Routine blood work orderedE) Updated patient's history RTC in one year for annual exam or sooner if any acute complaints Fatigue 29649078 R53.83 Z00.00 Hyperlipidemia 66829174 E78.5 Z00.00 Hepatitis C screening 41 6290936 Z11.59 HIV screening 707590984 Z11.4 Anxiety state 970253395 F41.1 - NIA-7 score of 21- currently on lorazepam 1mg BID given by tino almonte which she follows every 3 months- patient is not doing well, does need adjustment to her medication , tino almonte aware> PT REFUSED MD TO CONTACT PERSCRIBER TO DISCUSS PATIENT CURRENT HEALTH> PT REFUSED ED EVALUATON> HAS AN INTAKE APPOITMENT ON April- amos garcia provided, 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- medication s filled by tino almonte Bipolar I disorder 65201 6008 F31.9 - PHQ-9 score score of 25 [...] lithium 600mg BID- medication s filled by tino almonte- ED precaution s given- RTC in 4 weeks Hypothyroidism 85133686 E03.9 - will check levels- c/w levothyrox ine 100mcg QD Mild inter mittent asthma 866242995 J45.20 - pt takes albuterol pump has needed (will go months without using it)- take singular 10mg daily Vitamin D deficiency 347 64040 E55.9 Irritable bowel syndrome with diarrhea 590074648 K58.0 - pt is currently taking dicyclomin e 10mg QID as needed Psoriasis 5702768 L40.9 - currently on humira injections which provides relief Tachycardia 3775537 R00. 0 - HR today was 120- EKG has a lot of artifact but sinus tachycardi a with HR of 109- pt was started on metoprolol succinate ER 25mg- most likely due to elevated anxiety Screening for malignant neoplasm of cervix 724309117 Z12.4 Body mass index 30+ - obesity 433209812 E66.9 Z68.31 - BMI of 31.5- Cut [...] or 150 minutes cumulative of moderate exercise erin ferro [id number] RENUKA RAMÍREZ MD Main Office [address] [address] [place] [address] 04/26/2023 14:37:13 04/26/2023 15:09:02 Hepatitis C antibody detected 685688513 Z86.19 - ordered hepatic function panel- ordered confirmato ry testing testing by checking viral load and genotype- if positive will send to GI Acute kidney injury 1466 9001 N17.9 - pt advised to remain hydrated- continue to avoid NSAIDs- repeat blood work ordered [id number] RENUKA RAMÍREZ MD Main Office [address] [address] [place] [address] 05/17/2023 13:49:04 05/17/2023 14:29:35 Anxiety state 824952267 F41.1 - NIA-7 score of 17- currently on lorazepam 1mg BID given by [facility] which she follows every 3 months> pt advised not to take the medication with clonazepam 0.5mg- counsellin g provided, 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 0 - HR today was 109- EKG done on 04/12 has a lot of artifact but sinus tachycardi a with HR of 109- c/w metoprolol succinate ER 25mg- ordered US echo- pt referred to cardiology for holter monitor- [facility] will also be adjusting meds to help improve HR [id number] RENUKA RAMÍREZ MD Main Office [address] [place] [address] 08/13/2023 14:37:29 08/13/2023 15:13:08 Tachycardia 8762020 R00.0 - now resolved- HR today was [...] will request note Vitamin D deficiency 347 07226 E55.9 - pt noted to have elevated level on 04/17/2023 -> 68- pt was advised to start back on 1000 IU to prevent levels from going too low> pt was advised this when informed of blood however she did not read message properly Psoriasis 9339857 L40.9 - currently on cyltezo injections which provides relief- pt does have an area at the back of left ear were the psoriasis is worse, pt provided with clobetasol cream and advised to moisturise [id number] RENUKA RAMÍREZ MD Main Office [address] [facility] [address] [facility] [address] 12/21/2023 15:15:32 12/21/2023 16:02:18 Acute kidney injury 04514839 N17.9 - pt advised to remain hydrated- continue to avoid NSAIDs- repeat blood work ordered Anxiety state 978996591 F41.1 - NIA-7 score of 8- lorazepam as been stopped and switched to clonazepam - counsellin g provided, 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- [facility] Bipolar I disorder 36120 3758 F31.9 - improved- PHQ-9 score score of 6 with elevated NIA-7 score 8- pt has completed day-progra m at [place]> clonazepam 0.5mg as added to regimen- pt will be following with psychiatry over the next few month to optimize her meds as it could be the cause of the tachycardi a- currently on quetiapine 800mg QD and lithium 600mg BID- medication s filled by psychiatri Hypothyroidism 29179401 E03.9 - will check levels- c/w levothyrox ine 100mcg QD Mild inter mittent asthma 993544881 J45.20 - pt takes albuterol pump has needed (will go months without using it)- take singular 10mg daily Tachycardia 9351062 R00. 0 - now resolved- HR today [...] will request note Needs infl uenza immunization 750616827 Z23 19 YEARS AND OLDER ONLY Tremor 41433878 R25.1 - ordered vitamin b12 and folate- ordered MRI of the brain for further evaluation - pt psychiatri st started patient on propanolol ER 60mg Urinary incontinence 165 030317 R32 - pt has been following with urology, advised to given them a call for follow-up Numbness of hand 1990124 04 R20.0 - occurred after incident veggie slicer- located on right hand on second and third digit- pt having neuropathi c pain and temperatur e sensitivit ies- referred to hand surgery for second option however feel that pain is from severed never endings and may permanent [id number] RENUKA RAMÍREZ MD Main Office 3640 [facility] [address] [place] [address] 01/01/2024 09:20:34 01/01/2024 09:55:35 Transition of care from emergency department to self-care 4865345711 56070 Z76.89 - presented to urgent care on 12/23 for cellulitis of lower extremity- reviewed notes Cellulitis 273490274 L03 .90 - well healing- no need for repeat antibiotic treatment at this time- wound culture grew Beta hemolytic Streptococ cus, group B which is susceptibl e to keflex- pt advised to keep area clean and dry- return precaution s were discussed [id number] RENUKA RAMÍREZ MD Main Office 3640 [facility] 207 [facility] [place] [address] 03/24/2024 14:33:30 03/24/2024 15:06:31 Acute kidney injury 91878997 N17.9 - creatine 1.1 and GFR of 58- pt advised to remain hydrated- continue to avoid NSAIDs- repeat blood work ordered Hypothyroidism 98523504 E03.9 - normal levels- will check levels- c/w levothyrox ine 100mcg QD Tachycardia 6665904 R00. 0 - now resolved- HR today [...] control with metoprolol at the time Tremor 34131859 R25.1 - normal vitamin b12- MRI of [...] with her psychiatri st Urinary incontinence 165 366737 R32 - pt has been following with urology, advised to given them a call for follow-up Numbness of hand 4449865 04 R20.0 - occurred after incident veggie slicer- located on right hand on second and third digit- pt having neuropathi c pain and temperatur e sensitivit ies- pt is currently following with hand surgery [id number] Josee Casillas MD Main Office [address] [facility] [address] [facility] [address] 04/15/2024 13:36:44 04/15/2024 14:47:23 Impacted cerumen of bilateral ears 6497591168 234221 H61.23 Bilateral cerumen impaction , recurrent. Recommend to avoid using q-tip. Ears were irrigated with large amount of cerumen removed , but still with residual amount left behind. Recom. to use Debrox for 3-5 days. Recom ear irrigation every 6-8 m. Health Concerns Section Related Observation LastModified by Organization Walter ls LastModified Time None Recorded Concern Status LastModified by Organization Details LastModified Time None Recorded Advance Directives Directive N: Payers Encounter Date Sequence Insurance Name Policy Number Policy Scott Covered Member ID Scott Member ID Guarantor Name 08/13/2023 1 [place] [employer] Crystal Mackay Eduard [id number] Crystal Mackay Eduard 08/13/2023 2 [place] [facility] Crystal Mackay Eduard [id number] Crystal Mackay Eduard 12/21/2023 1 [place] [employer] Crystal Mackay Eduard [id number] Crystal Mackay Eduard 12/21/2023 2 [place] [facility] Crystal Mackay Eduard [id number] Crystal Mackay Eduard 01/01/2024 1 [place] [employer] Crystal Mackay Eduard [id number] Crystal Mackay Eduard 01/01/2024 2 [place] [facility] Crystal Mackay Eduard [id number] Crystal Mackay Eduard 03/24/2024 1 MEDICARE B-[place]: [facility] Crystal Mackay Eduard [id number] Crystal Mackay Eduard 03/24/2024 2 [place] [facility] Crystal Mackay Eduard [id number] Crystal Mackay Eduard 04/15/2024 1 [place]IC[place]: [facility] Crystal Mackay Eduard [id number] Crystal Mackay Eduard 04/15/2024 2 [place] [facility] Crystal Mackay Eduard [id number] Crystal Mackay Eduard Notes Date Note Type Note Provider Name [...] has any heart palpitations. RENUKA RAMÍREZ MD [address], [address], [facility] 08/13/2023 16:16:00 4 text/html IncontinenceReported bypatient.Quality:urge incontinence Severity:mild Duration:intermittent Context:subhash Chapa is a 43 year old F who presented to the clinic for follow-up on her chronic conditions. Patient has been following with a new NUCLEAR ENGINEER for her psychiatrist medications. Overactive bladder: Pt [...] neuropathic and temperature sensitivities. RENUKA RAMÍREZ MD [address] [address], [place], [address], [facility] 12/21/2023 19:14:18 4 text/html Emergency Department Follow-Up [...] has no completed keflex. RENUKA RAMÍREZ MD [address] [address], [place], [address], [facility] 01/01/2024 10:00:18 5 text/html IncontinenceReported bypatient.Quality:urge incontinence Severity:mild Duration:intermittent Context:subhash Rojas Eduard is a 43 year old F who presented to the clinic for follow-up on her chronic conditions. Patient has been following with a new NUCLEAR ENGINEER for her psychiatrist medications. Pt started a [...] MRI has been ordered. RENUKA RAMÍREZ MD [address], [address] [facility] [place]24 15:07:59 5 text/html 43 year old female c/o 5 day onset of bilateral ear ache and decreased hearing. NO viral symptoms, denies fever, chills. H/o cerumen impaction in the past. Uses q-tips. Estrellita Pitt PA-C [address], [address] [facility] [place]15/2024 15:10:36 OBGyn Episode No OBEpisode recorded.
[2024-06-26 08:20] LABS: Ammonia 39 umol/L (13-55)
[2024-06-26 08:33] LABS: Valproate 17.6 mcg/mL (50.0-100.0)
[2024-06-26 08:37] LABS: Osmolality, Serum 301 mosm/kg (281-305)
[2024-06-26 08:43] LABS: Alanine Aminotransferase 10 U/L (0-31); Albumin Level 4.1 g/dL (3.5-5.0); Alkaline Phosphatase 75 U/L (39-117); Anion Gap 13 (12-20); Aspartate Amino Transferase 16 U/L (5-31); Bilirubin Total 0.3 mg/dL (0.0-1.0); Blood Urea Nitrogen 9 mg/dL (9-16); Calcium 9.3 mg/dL (8.4-10.2); Carbon Dioxide 25 mmol/L (22-29); Chloride 108 mmol/L (96-108); Estimated Glomerular Filt Rate 60; Gamma Glutamyl Transpeptidase 16 U/L (7-33); Glucose Random 105 mg/dL (60-115); Potassium 3.9 mmol/L (3.3-5.1); Sodium 142 mmol/L (135-145); Total Protein 7.6 g/dL (6.5-8.0)
[2024-06-26 09:05] LABS: Appearance Urine Clear; Color Urine Yellow; Glucose Urine UA Negative (Negative); Leukocyte Esterase Urine Moderate (2+) (Negative); Nitrite Urine Negative (Negative); UMIC TRIGGER UA YES; Urine Blood Negative (Negative); Urine Ketones Negative (Negative); Urine Protein Negative (Neg-Trace)
[2024-06-26 09:17] LABS: Bacteria Urine 1+ (None Seen); Hyaline Casts Urine 0-2 /LPF (0-2); RBC Urine 0-2 /HPF (0-2); Squamous Epithelial Cell Urine 0-2 /HPF (0-2); WBC Urine 0-5 /HPF (0-5)
[2024-06-26 09:36] LABS: Osmolality Urine 320 mosm/kg (373-1093)
[2024-07-02 06:58] LABS: Anti DNA DS Antibody 1 IU/mL
== END 2024-06-26 07:53 | disposition home or self-care (01) ==
LOC: HO.LAB 07:52
PROVIDERS: PCP Student in an Organized Health Care Education/Training Program; Visit Provider Psychiatry & Neurology Psychiatry
DX: F39 Unspecified mood [affective] disorder (principal); F31.81 Bipolar II disorder; N25.1 Nephrogenic diabetes insipidus
CPT/HCPCS: 36415; 80053; 80164; 81001; 81003; 82140; 82550; 82977; 83930; 83935; 86225

== ENCOUNTER 2024-07-04 09:45 | Outpatient (RCR) | payer MEDICARE, MEDICAID, SELFPAY ==
[2024-05-19 12:04] VITALS: BMI 30.9
[2024-05-19 12:30] VITALS: BP 116/93; PULSE 84; RESP 18; TEMP 37.3
--- NOTE | 2024-05-19 14:19 | PC.ADMIT ---
Crystal is a 43 year old female who was referred to [facility] by her outpatient therapist.Crystal is diagnosed with Bipolar 2 disorder as well as PTSD. Crystal attended [facility] in 05/12. Crystal presents as alert and oriented x4. She identifies that she has been struggling with anxiety and suicidal thoughts for the past few weeks and reports, ?I just want them to stop, I thought that they would fade out but they have?nt, I?m just tired.? During the admission assessment Crystal is tearful and struggles to maintain her composure. Though Crystal does endorse passive SI with no plan or intent, she reports that she can alert staff if her thoughts worsen and that she has an outside DBT support group with whom she can engage with. Crystal reports no active self harm. She states that she can not pinpoint a precipitant.? Per integrative assessment Crystal reports being hopeless, helpless, reports anhedonia and disrupted sleep, though reports getting enough sleep. Crystal utilizes marijuana use a few times per week with a few puffs of a bowl at a time and infrequent edible use.?
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
--- NOTE | 2024-05-20 14:31 | HO.PHP ---
Patient was pulled by this clinician due to dysregulation and a disclosure of severe SI. She reported to have SI without a plan or intent. The doctor was able to meet with her and the patient agreed to picker tender a new medication and go home after the program and start taking it.
--- NOTE | 2024-05-22 15:59 | HO.PHP ---
Client's case was opened and reviewed in teams.
--- NOTE | 2024-05-23 15:11 | HO.IOP ---
The client informed the clinician that was leaving early because someone closed to her . No safety concerns were reported and patient reported that will be back on Sunday.
--- NOTE | 2024-05-27 13:19 | PC.NURSE ---
Dr. Griffin is aware of patient's lab and EKG results including: TSH 5.51, PTH 98.2, CL 111, Gap 9, BUN 18, Creat 1.09, eGFR 54, FBS 105, EOS PCT auto 7.0, EOS abs auto 0.6, T3 51, Prolactin 29.7, Homocysteine 20.0, EKG Possible Left atrial enlargement, non-specific T wave abnormality.
--- NOTE | 2024-05-28 11:55 | P.PNPSP_ITS ---
Subjective Subjective Date of Service: 05/27/24 Reason For Visit: bipolar,PTSD Diagnostics Vital Signs (24Hr): Vital Signs - 24 hr 05/28/24 11:57 Pulse Rate 80 Blood Pressure 120/78 BMI result Body Mass Index 30.9 Assessment & Plan Certification I certify that partial hospital treatment is medically necessary due to the symptoms and problems resulting from the patient's mental illness and the fail ure to treat the patient at the partial hospital level of care would likely result in the patient requiring inpatient psychiatric care which could not be prevented at a less intensive level of care. Total time managing care of this patient today ____ minutes. Discharge Plan Discharge Attending provider: Dee Griffin Medications: New risperidone 0.5 mg tablet 0.25 - 0.5 mg PO BID Qty: 20 0RF risperidone 0.25 mg tablet 0.125 mg PO BID Qty: 30 0RF Rx Instructions: in AM and lunch memantine 14 mg capsule,sprinkle,ER 24hr 14 mg PO BEDTIME Qty: 30 0RF guanfacine 1 mg tablet extended release 24 hr 1 mg PO DAILY Qty: 14 0RF lisdexamfetamine 10 mg capsule 10 mg PO DAILY Qty: 30 0RF Rx Instructions: Partial Fill upon patient request. Continued lithium carbonate 300 mg tablet extended release 2 tab PO BID levothyroxine 100 mcg tablet 1 tab PO DAILY montelukast 10 mg tablet 1 tab PO DAILY quetiapine 400 mg tablet extended release 24 hr 2 tab PO QPM propranolol 20 mg tablet 20 mg PO BID diazepam 5 mg tablet 5 mg PO BEDTIME PRN (Reason: dystonic reaction) Qty: 20 0RF benztropine 0.5 mg tablet 0.5 mg PO BEDTIME PRN (Reason: dystonic reaction) Qty: 20 0RF adalimumab-adbm [Cyltezo(CF) Pen] 40 mg/0.8 mL pen injector kit 40 mg subcut Q2W clonazepam 0.5 mg tablet 0.5 mg PO DAILY PRN (Reason: severe anxiety) 30 Days Qty: 8 0RF Rx Instructions: take 1/2 tablet twice a day as needed for anxiety Print Language: Georgian
[2024-05-28 11:57] VITALS: BP 120/78; PULSE 80
--- NOTE | 2024-05-28 12:15 | PC.NURSE ---
Crystal was crying in group and was feeling anxious about her medications. She met with Dr. Griffin yesterday and reports medication changes were made by Dr. Griffin d/t possible dystonic reactions to Seroquel that have been happening for a year each night. Patient thought she was having panic attacks every night. Patient stated she took the medication as directed by Dr. Griffin the night before and did not have any dystonic reaction however she stated she forgot and took the full dose of the medication last night and had the dystonic reaction again feeling her tongue was not able to move thus started sipping on water to ensure that she was still able to swallow as she felt she felt she could not swallow. She also stated her mouth felt dry from taking the new medication Benadryl. She stated she was instructed to take a whole Seroquel tab earlier in the day and take 1/2 tab later which she stated worked the other night and plans on doing this tonight. I wrote instructions down for her to remember to take it this way tonight. VSS 120/78 P 80. Reviewed aforementioned information with Dr. Griffin. Dr. Uribe stated she spoke to Crystal.
--- NOTE | 2024-05-29 11:00 | HO.IOP ---
Clinician had a discussion with the patient after been notified that she was not in the group yet. The clinician noticed that the patient was bleeding from her knuckles and the client reported to punch a wall because of frustration. She manifested inability to manifest her feelings and disclosed passive SI without intent or a plan. The clinician notified the Program Nurse and the patient was seen by her.
--- NOTE | 2024-05-29 15:35 | PC.NURSE ---
Patient told staff she rubbed her knuckles on the brick wall as she was feeling frustrated and overwhelmed with her medications. Patient had small surface abrasion on her 3rd and 4th knuckle with scant amount of blood. She washed her hands with soap and water and I applied a bandaid to the area. Patient brought in her medications with her pill organizer and asked for staffs help in regards to filling the organizer with the medications according to recent medication changes as it is too overwhelming for her to complete. Dr. Griffin helped patient organize her medications according to medication changes she had made with patient.
--- NOTE | 2024-05-29 19:05 | P.PNPSP_ITS ---
Subjective Subjective Date of Service: 05/29/24 Reason For Visit: bipolar,PTSD Diagnostics Vital Signs (24Hr): BMI result Body Mass Index 30.9 Assessment & Plan Certification I certify that partial hospital treatment is medically necessary due to the symptoms and problems resulting from the patient's mental illness and the failure to treat the patient at the partial hospital level of care would likely result in the patient requiring inpatient psychiatric care which could not be prevented at a less intensive level of care. Total time managing care of this patient today ____ minutes. Discharge Plan Discharge Attending provider: Dee Griffin Medications: New risperidone 0.25 mg tablet 0.125 mg PO BID Qty: 30 0RF Rx Instructions: in AM and lunch memantine 14 mg capsule,sprinkle,ER 24hr 14 mg PO BEDTIME Qty: 30 0RF guanfacine 1 mg tablet extended release 24 hr 1 mg PO DAILY Qty: 14 0RF lisdexamfetamine 10 mg capsule 10 mg PO DAILY Qty: 30 0RF Rx Instructions: Partial Fill upon patient request. lithium carbonate 450 mg tablet extended release 450 mg PO BID Qty: 30 0RF quetiapine 150 mg tablet extended release 24 hr 150 mg PO DAILY Qty: 30 0RF Continued levothyroxine 100 mcg tablet 1 tab PO DAILY montelukast 10 mg tablet 1 tab PO DAILY propranolol 20 mg tablet 20 mg PO BID benztropine 0.5 mg tablet 0.5 mg PO BEDTIME PRN (Reason: dystonic reaction) Qty: 20 0RF adalimumab-adbm [Cyltezo(CF) Pen] 40 mg/0.8 mL pen injector kit 40 mg subcut Q2W Changed quetiapine [Seroquel XR] 200 mg tablet extended release 24 hr 200 mg PO BEDTIME Qty: 30 0RF diazepam 5 mg tablet 10 mg PO BEDTIME PRN (Reason: dystonic reaction) Qty: 20 0RF Discontinued lithium carbonate 300 mg tablet extended release 2 tab PO BID quetiapine 400 mg tablet extended release 24 hr 2 tab PO QPM clonazepam 0.5 mg tablet 0.5 mg PO DAILY PRN (Reason: severe anxiety) 30 Days Qty: 8 0RF Rx Instructions: take 1/2 tablet twice a day as needed for anxiety Stand Alone Forms: Patient Portal Discharge page Print Language: Citizen Of [place]
--- NOTE | 2024-05-30 12:59 | HO.PHPPROGNO ---
Subjective Subjective Date of Service: 05/30/24 Reason For Visit: bipolar,PTSD Interim History: Still reporting intermittent high levels of anxiety his particularly worried about reexperiencing acute dystonia (what she had thought were recurrent panic attacks around the same time every night for the past few years). We have been steadily cutting back on Seroquel XR which had been at 800 mg and is now down to 400 mg in split dose of 200 and 200 by 3 hours. She also has been taking diazepam 5 and benztropine 0.5 with each of those doses to prevent any recurrence of dystonic reaction. She had combine the dose on a previous evening which did elicit some of those feelings and I suspect some of this was her anxiety but has not returned since we repeated the dose of diazepam and Cogentin. She is interested in discontinuing the Seroquel however we will try to find a lower dose to maintain stability as I also am concerned about the lithium given reports of polydipsia, polyuria and shares that she has been dealing with problems with urinary continence and enuresis on a nightly basis which has also been going on for several years. She had previous urodynamic workup for this concerning overactive bladder and other neurologic dysfunction but thus far findings have been negative. She denies any issues with dysuria other signs of infection urine is generally clear. There was some concern I had that perhaps she was overmedicated at night which may interfere with her ability to get up to use the bathroom however even with her Seroquel being reduced beyond 50% she is still experiencing bedwetting issues. This can sometimes occur during the day but is less likely she wears a poise pad as for assurance. Of note this problem developed in the past few years and does not have a history of enuresis or childhood trauma. She has been continuing with Risperdal t.i.d. in the morning lunch in afternoon at 0 point 125 mg which has been helpful for intrusive suicidal thoughts and says for the most part this has been well managed and has not been an issue further. Anxiety has been more focused on medications and the side effects and is still dealing with a lot of cognitive dysfunction and once her lithium and Seroquel are sorted out, and we have substituted some gabapentin to help with anxiety in place of Seroquel, we may turn our attention to starting low-dose stimulant and guanfacine and discontinuing propranolol. Mental Status Exam Mental Status Exam Narrative: Alert, oriented, cooperative, calmer still experiencing moments of feeling emotionally overwhelmed but evidence of improved regulation since starting program, adequate level of cooperation and engagement. Eye contact intermittent. Mood anxious, affect anxious, no evidence of tearful, mood congruent. Speech normal. Thought process scattered but coherent. Thought content related to stressors, executive dysfunction, distractible, helplessness, denies hopelessness or SI. Denies thoughts to harm self or others.? No aggressive ideation or HI. No paranoia or delusional content elicited. Denies any AH, VH, TH. Insight and judgment fair but adequate. 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 (creatinine has been >1.0 for past few years) (5) Acute dystonic reaction due to drugs: Status: Acute Code(s): G24.02 - Drug induced acute dystonia Plan [place] ER 450 mg BID (AM/HS) risperidone 0.125 mg TID (AM/lunch/3pm) for now (spacing dose between 3pm and HS Seroquel due reduce risk of dystonia) benztropine 0.5 mg (1-2 times) at night (between 7pm and 9pm) diazepam 5 mg (1-2 times) at night (between 7pm and 9pm) Seroquel XL 400 mg QHS (may split 200 mg BID between 7pm and 9pm) to mitigate risk of acute dystonic reaction once sleep regulated and acute dystonic reaction resolved, will consolidate HS meds next week will start to transition off HS BZD and onto gabapentin TID to target anxiety, sleep, pain/neuralgias once anxiety controlled will start treatment of ADHD (guanfacine, Vyv) rule out nephrogenic DI vs other causes polydipsia/enuresis continue to monitor Patient educated on: diagnosis, medication risk/benefits and medical condition Informed Consent: understands Reason for contiued partial hosp. stay Substantial Risk for: inability to function and med/psych decompensation Certification I certify that partial hospital treatment is medically necessary due to the symptoms and problems resulting from the patient's mental illness and the failure to treat the patient at the partial hospital level of care would likely result in the patient requiring inpatient psychiatric care which could not be prevented at a less intensive level of care. Total time managing care of this patient today _60___ minutes. Discharge Plan Discharge Attending provider: Dee Griffin Medications: New risperidone 0.25 mg tablet 0.125 mg PO BID Qty: 30 0RF Rx Instructions: in AM and lunch memantine 14 mg capsule,sprinkle,ER 24hr 14 mg PO BEDTIME Qty: 30 0RF guanfacine 1 mg tablet extended release 24 hr 1 mg PO DAILY Qty: 14 0RF lisdexamfetamine 10 mg capsule 10 mg PO DAILY Qty: 30 0RF Rx Instructions: Partial Fill upon patient request. lithium carbonate 450 mg tablet extended release 450 mg PO BID Qty: 30 0RF quetiapine 150 mg tablet extended release 24 hr 150 mg PO DAILY Qty: 30 0RF gabapentin 300 mg capsule 300 mg PO TID Qty: 30 0RF Continued levothyroxine 100 mcg tablet 1 tab PO DAILY montelukast 10 mg tablet 1 tab PO DAILY propranolol 20 mg tablet 20 mg PO BID benztropine 0.5 mg tablet 0.5 mg PO BEDTIME PRN (Reason: dystonic reaction) Qty: 20 0RF adalimumab-adbm [Cyltezo(CF) Pen] 40 mg/0.8 mL pen injector kit 40 mg subcut Q2W Changed quetiapine [Seroquel XR] 200 mg tablet extended release 24 hr 200 mg PO BEDTIME Qty: 30 0RF diazepam 5 mg tablet 10 mg PO BEDTIME PRN (Reason: dystonic reaction) Qty: 20 0RF Discontinued lithium carbonate 300 mg tablet extended release 2 tab PO BID quetiapine 400 mg tablet extended release 24 hr 2 tab PO QPM clonazepam 0.5 mg tablet 0.5 mg PO DAILY PRN (Reason: severe anxiety) 30 Days Qty: 8 0RF Rx Instructions: take 1/2 tablet twice a day as needed for anxiety Stand Alone Forms: Patient Portal Discharge page Print Language: Botswanan
--- NOTE | 2024-06-02 21:47 | HO.PHPPROGNO ---
Subjective Subjective Date of Service: 06/02/24 Reason For Visit: bipolar,PTSD Interim History: ?not the best? She notes that this morning she had felt the lingering effects of gabapentin 300 which she took at 10:00 last night and had made her feel a little groggy in tipsy this morning. Upon walking around this did eventually resolve she would still be open to adding this on at night for sleep for perhaps will plan to take this earlier she continues on propranolol twice a day some plan to start switching over to guanfacine and treating with stimulant medication for ADHD however we will wait until her mood is less labile and anxiety is better controlled. She reports that it feels like ?my brain has shifted? she is experiencing a lot of anxiety most of this continues to be focused on her medication there is she is more easily weepy but also easy to recover. There is less despair she no longer is having intrusive suicidal thoughts most of those visualizations have abated. She has been on and off fretting through the day about medication she is starting to feel more optimistic that that acute dystonic reaction will not recur but admits that as we have as she heads closer to nighttime it does start to make her anxious her dose of Seroquel had in fact been cut down 200 mg and perhaps this is suboptimal for management of her anxiety and mood regulation I suggest she may feel more stable again on a dose of 3-400. She was initially reticent because she now ?hates? the Seroquel due to the side effect. I suggest we could try adding on 50 mg at a time outside of HS dosing to help titrate to a dose that is more therapeutic but not all at the same time which could provoke a dystonic reaction she was hesitantly agreeable but says the phone calls have been helpful in supporting her with these med changes. She will be continue to bring her pill case in to reorganize her med schedule. She is also remains on lithium 450 mg b.i.d. 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 Medication Compliance: Yes Side effects from medications: Yes Attending Groups: Yes Review of Systems Acute medical concerns: Yes ?NDI, enuresis Acute dystonic reaction resolving with decrease in HS dose of Seroquel Mental Status Exam Mental Status Exam Narrative: Alert, oriented, cooperative, calmer still experiencing moments of feeling emotionally overwhelmed but evidence of improved regulation since starting program, adequate level of cooperation and engagement. Eye contact intermittent. Mood anxious, affect anxious, no evidence of tearful, mood congruent. Speech normal. Thought process scattered but coherent. Thought content related to stressors, executive dysfunction, distractible, helplessness, denies hopelessness or SI. Denies thoughts to harm self or others.? No aggressive ideation or HI. No paranoia or delusional content elicited. Denies any AH, VH, TH. Insight and judgment fair but adequate. 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 (creatinine has been >1.0 for past few years) (5) Acute dystonic reaction due to drugs: Status: Acute Code(s): G24.02 - Drug induced acute dystonia Plan extend PHP continue Seroquel XR 200 mg qhs add on Seroquel XR 50 mg in afternoon/evening start Seroquel XR 50 mg in AM hold risperidone 0.125 mg TID (AM/lunch/3pm) continue [place] ER 450 mg BID (AM/HS) continue benztropine 0.5 mg (1-2 times) at night (between 7pm and 9pm) continue diazepam 5 mg (1-2 times) at night (between 7pm and 9pm) plan to start transitioning toward gabapentin for sleep will hold gabapentin until Seroquel XR back to 300-400 mg and then resume gabapentin to target anxiety, sleep, pain/neuralgias and eventually off diazepam rule out nephrogenic DI vs other causes polydipsia/enuresis continue to monitor Patient educated on: medication risk/benefits and medical condition Informed Consent: understands Reason for contiued partial hosp. stay Substantial Risk for: inability to function and med/psych decompensation Certification I certify that partial hospital treatment is medically necessary due to the symptoms and problems resulting from the patient's mental illness and the failure to treat the patient at the partial hospital level of care would likely result in the patient requiring inpatient psychiatric care which could not be prevented at a less intensive level of care. Total time managing care of this patient today __30__ minutes. Discharge Plan Discharge Attending provider: Dee Griffin Medications: New risperidone 0.25 mg tablet 0.125 mg PO BID Qty: 30 0RF Rx Instructions: in AM and lunch memantine 14 mg capsule,sprinkle,ER 24hr 14 mg PO BEDTIME Qty: 30 0RF guanfacine 1 mg tablet extended release 24 hr 1 mg PO DAILY Qty: 14 0RF lisdexamfetamine 10 mg capsule 10 mg PO DAILY Qty: 30 0RF Rx Instructions: Partial Fill upon patient request. lithium carbonate 450 mg tablet extended release 450 mg PO BID Qty: 30 0RF quetiapine 150 mg tablet extended release 24 hr 150 mg PO DAILY Qty: 30 0RF gabapentin 300 mg capsule 300 mg PO TID Qty: 30 0RF quetiapine 50 mg tablet extended release 24 hr 50 mg PO BID Qty: 30 0RF Rx Instructions: in morning and afternoon dextroamphetamine-amphetamine [Adderall] 5 mg tablet 5 mg PO BID Qty: 20 0RF Rx Instructions: administer doses at least 4-6 hours apart; Partial Fill upon patient request. Continued levothyroxine 100 mcg tablet 1 tab PO DAILY montelukast 10 mg tablet 1 tab PO DAILY propranolol 20 mg tablet 20 mg PO BID benztropine 0.5 mg tablet 0.5 mg PO BEDTIME PRN (Reason: dystonic reaction) Qty: 20 0RF adalimumab-adbm [Cyltezo(CF) Pen] 40 mg/0.8 mL pen injector kit 40 mg subcut Q2W Changed quetiapine [Seroquel XR] 200 mg tablet extended release 24 hr 200 mg PO BEDTIME Qty: 30 0RF diazepam 5 mg tablet 10 mg PO BEDTIME PRN (Reason: dystonic reaction) Qty: 20 0RF Discontinued lithium carbonate 300 mg tablet extended release 2 tab PO BID quetiapine 400 mg tablet extended release 24 hr 2 tab PO QPM clonazepam 0.5 mg tablet 0.5 mg PO DAILY PRN (Reason: severe anxiety) 30 Days Qty: 8 0RF Rx Instructions: take 1/2 tablet twice a day as needed for anxiety Stand Alone Forms: Patient Portal Discharge page Print Language: [place] [facility] Telehealth Telehealth Platform: Other (please specify) ([employer]) Location of provider rendering services: other (private office) Location of patient: other ([facility]) Patient Identification confirmed using: Name, : Yes Telehealth method: video
--- NOTE | 2024-06-03 22:31 | P.PNPSP_ITS ---
Subjective Subjective Date of Service: 06/03/24 Reason For Visit: bipolar,PTSD Interim History: Met with patient who was in group room C with clinician. Sitting with her head down on the table but was able to look up and talk to me. She reports feeling really overwhelmed, she had taken dose of Seroquel XR 50 mg this morning and was feeling highly anxious, almost panicked, to the point of being queasy and nauseous. ?I do not know if I can do this? she was tearful. She proceeded to get up and grab a waste basket to vomit into. And would continue talking to me in between bouts of vomiting. Feeling some brief reprieve old from the nausea stating she was okay and then shortly after starting to cry again saying she was feeling anxious and then would vomit again and relax. She went through several cycles of this and over time she did settle down and the vomiting stopped. I as ked if she had eaten this morning which she said she had she denies any sick contacts. She had had no other medication changes aside from adding Seroquel this morning. She noted feeling anxious upon taking her meds anyway and says that she sometimes she vomits when she gets overwhelmed and it seems to be a way for her body to calm itself down. 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 We then cut her dose to 600 mg (which when split in evening/HS symptoms were barely experienced - although did accidently take 600 mg at once one night and experienced another such reaction). We proceeded to lower dose to 200 mg, which abruptly stopped the acute dystonic reaction, however in the past few days her mental health has destabilied. She is becoming increasingly anxious, helpless, obsessive and emotionally unhinged. We have been trying to work on slowly increasing her dose of Seroquel to stabilize her without triggering acute dystonic response. WIll plan to increase dose from 200 mg to 350 mg (in split dosing tonight - 150 mg in evening/ 200 mg at HS). She has been measuring her fluid in take with 40 oz water bottle. SHe is noted to be on her 2nd bottle of the day (already has consumed >40 oz and it's only 10 am). She says she usually drinks about 3 or 4 bottles a day due to thrist. Abundant urine, is continent of urine usually, but trouble with enuresis mostly when she is sleeping. Noted large amount of clear urine. We had planned to send her for lab work today to rule out DI, however given that she is feeling still nauseous we agree for her to go home to rest for remainder of day. Will discontinue Seroquel during daytime and focus on putting some back on later in day. Medication Compliance: Yes Side effects from medications: Yes Attending Groups: Yes Review of Systems Acute medical concerns: No Mental Status Exam Mental Status Exam Narrative: Alert, oriented, cooperative, calmer still experiencing moments of feeling emotionally overwhelmed but evidence of improved regulation since starting program, adequate level of cooperation and engagement. Eye contact intermittent. Mood anxious, affect anxious, no evidence of tearful, mood congruent. Speech normal. Thought process scattered but coherent. Thought content related to stressors, executive dysfunction, distractible, helplessness, denies hopelessness or SI. Denies thoughts to harm self or others.? No aggressive ideation or HI. No paranoia or delusional content elicited. Denies any AH, VH, TH. Insight and judgment fair but adequate. 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 (creatinine has been >1.0 for past few years) (5) Acute dystonic reaction due to drugs: Status: Acute Code(s): G24.02 - Drug induced acute dystonia Plan extend PHP Patient sent home early on account of n/v, feeling overwhelmed did not tolerate any Seroquel XR (50 mg) in AM will titrate dose up in evening/night add Seroquel XR 150 mg daily in evening continue Seroquel XR 200 mg qHS resume risperidone 0.125 mg TID (AM/lunch/3pm) continue [place] ER 450 mg BID (AM/HS) continue benztropine 0.5 mg BID (evening/HS - w SXR) continue diazepam 5 mg BID (evening/HS - w SXR plan to start transitioning toward gabapentin for sleep restart gabapentin 300 mg will take earlier in evening this time @7pm (pt was dizzy in morning after taking GBT at 10pm) to target anxiety, sleep, pain/neuralgias, and eventually off diazepam continue propranolol 20 mg BID (AM/HS) will consider transitioning to guanfacine and trial stimulant medication (adderall or modafinil) will plan to trial guanfacine ER (holding propranolol) and low dose Adderall once patient is more raphael UNable to obtain lab work today, will order on when t/w returns, lrule out nephrogenic DI vs other causes polydipsia/enuresis continue to monitor Patient educated on: diagnosis, medication risk/benefits and medical condition Informed Consent: understands Reason for contiued partial hosp. stay Substantial Risk for: med/psych decompensation Certification I certify that partial hospital treatment is medically necessary due to the symptoms and problems resulting from the patient's mental illness and the failure to treat the patient at the partial hospital level of care would likely result in the patient requiring inpatient psychiatric care which could not be prevented at a less intensive level of care. Total time managing care of this patient today _45___ minutes. Discharge Plan Discharge Attending provider: Dee Griffin Medications: New risperidone 0.25 mg tablet 0.125 mg PO BID Qty: 30 0RF Rx Instructions: in AM and lunch memantine 14 mg capsule,sprinkle,ER 24hr 14 mg PO BEDTIME Qty: 30 0RF guanfacine 1 mg tablet extended release 24 hr 1 mg PO DAILY Qty: 14 0RF lisdexamfetamine 10 mg capsule 10 mg PO DAILY Qty: 30 0RF Rx Instructions: Partial Fill upon patient request. lithium carbonate 450 mg tablet extended release 450 mg PO BID Qty: 30 0RF quetiapine 150 mg tablet extended release 24 hr 150 mg PO DAILY Qty: 30 0RF gabapentin 300 mg capsule 300 mg PO TID Qty: 30 0RF quetiapine 50 mg tablet extended release 24 hr 50 mg PO BID Qty: 30 0RF Rx Instructions: in morning and afternoon dextroamphetamine-amphetamine [Adderall] 5 mg tablet 5 mg PO BID Qty: 20 0RF Rx Instructions: administer doses at least 4-6 hours apart; Partial Fill upon patient request. Continued levothyroxine 100 mcg tablet 1 tab PO DAILY montelukast 10 mg tablet 1 tab PO DAILY propranolol 20 mg tablet 20 mg PO BID benztropine 0.5 mg tablet 0.5 mg PO BEDTIME PRN (Reason: dystonic reaction) Qty: 20 0RF adalimumab-adbm [Cyltezo(CF) Pen] 40 mg/0.8 mL pen injector kit 40 mg subcut Q2W Changed quetiapine [Seroquel XR] 200 mg tablet extended release 24 hr 200 mg PO BEDTIME Qty: 30 0RF diazepam 5 mg tablet 10 mg PO BEDTIME PRN (Reason: dystonic reaction) Qty: 20 0RF Discontinued lithium carbonate 300 mg tablet extended release 2 tab PO BID quetiapine 400 mg tablet extended release 24 hr 2 tab PO QPM clonazepam 0.5 mg tablet 0.5 mg PO DAILY PRN (Reason: severe anxiety) 30 Days Qty: 8 0RF Rx Instructions: take 1/2 tablet twice a day as needed for anxiety Stand Alone Forms: Patient Portal Discharge page Print Language: Chinese
--- NOTE | 2024-06-05 23:14 | P.PNPSP_ITS ---
Subjective Subjective Date of Service: 06/05/24 Reason For Visit: bipolar,PTSD Interim History: In the recent past (perhaps year or 2), patient tells me she had to undergo a 24 hour urine collection as ordered by her provider. (She had had some urodynamic studies done with no significant findings). However she is reportedly was unable to complete the test after she had filled the 3 L container (over 100 oz) at some point in the evening (around 12 hours in, give or take an hour or 2). She has been Mental Status Exam Mental Status Exam Narrative: Alert, oriented, cooperative, calmer still experiencing moments of feeling emotionally overwhelmed but evidence of improved regulation since starting program, adequate level of cooperation and engagement. Eye contact intermittent. Mood anxious, affect anxious, no evidence of tearful, mood congruent. Speech normal. Thought process scattered but coherent. Thought content related to stressors, executive dysfunction, distractible, helplessness, denies hopelessness or SI. Denies thoughts to harm self or others.? No aggressive ideation or HI. No paranoia or delusional content elicited. Denies any AH, VH, TH. Insight and judgment fair but adequate. 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 (Li can also cause central DI though much less likely) (creatinine has been >1.0 for past few years) (5) Acute dystonic reaction due to drugs: Status: Acute Code(s): G24.02 - Drug induced acute dystonia Plan extend PHP continue Seroquel XR 150 mg daily in evening (5-6pm) continue Seroquel XR 250 mg qHS (200+50) (9pm) continue risperidone 0.125 mg TID (AM/lunch/3pm), or may take as QID (AM/11a/1p/3p) if intrusive thoughts emerge) continue [place] ER 450 mg BID (AM/HS) likwly n continue benztropine 0.5 mg BID (evening/HS - w SXR) continue diazepam 5 mg BID (evening/HS - w SXR plan to start transitioning toward gabapentin for sleep restart gabapentin 300 mg will take earlier in evening this time @5-6pm (pt was dizzy in morning after taking GBT at 9pm) to target anxiety, sleep, pain/neuralgias, and eventually off diazepam continue propranolol 20 mg BID (AM/HS) will consider transitioning to guanfacine and trial stimulant medication (adderall or modafinil) next week will plan to trial guanfacine ER (holding propranolol) and low dose Adderall once patient is more raphael anticipate trying to further decrease/taper off [place] since DI likely (will consider cross tapering off Li, will consider VPA if needed) continue to work-up patient for polyuria/polydipsia, urine osmalality low 208, pending copeptin level to see if can rule in/out Diabetes Insipidus, vs doing Water Deprivation test next week continue to monitor Patient educated on: diagnosis, medication risk/benefits and medical condition Informed Consent: understands Certification I certify that partial hospital treatment is medically necessary due to the symptoms and problems resulting from the patient's mental illness and the fa ilure to treat the patient at the partial hospital level of care would likely result in the patient requiring inpatient psychiatric care which could not be prevented at a less intensive level of care. Total time managing care of this patient today ____ minutes. Discharge Plan Discharge Attending provider: Dee Griffin Medications: New guanfacine 1 mg tablet extended release 24 hr 1 mg PO DAILY Qty: 14 0RF lisdexamfetamine 10 mg capsule 10 mg PO DAILY Qty: 30 0RF Rx Instructions: Partial Fill upon patient request. quetiapine 150 mg tablet extended release 24 hr 150 mg PO DAILY Qty: 30 0RF quetiapine 50 mg tablet extended release 24 hr 50 mg PO BID Qty: 30 0RF Rx Instructions: in morning and afternoon dextroamphetamine-amphetamine [Adderall] 5 mg tablet 5 mg PO BID Qty: 20 0RF Rx Instructions: administer doses at least 4-6 hours apart; Partial Fill upon patient request. modafinil 100 mg tablet 100 mg PO QAM Qty: 14 0RF levomefolate calcium 15 mg tablet 15 mg PO DAILY Qty: 30 2RF divalproex [Depakote ER] 250 mg tablet extended release 24 hr 250 mg PO BID Qty: 30 0RF Continued levothyroxine 100 mcg tablet 1 tab PO DAILY montelukast 10 mg tablet 1 tab PO DAILY lithium carbonate 450 mg tablet extended release 450 mg PO BID Qty: 30 0RF propranolol 20 mg tablet 20 mg PO BID Qty: 30 0RF gabapentin 300 mg capsule 300 mg PO TID Qty: 90 0RF memantine 14 mg capsule,sprinkle,ER 24hr 14 mg PO BEDTIME Qty: 30 0RF adalimumab-adbm [Cyltezo(CF) Pen] 40 mg/0.8 mL pen injector kit 40 mg subcut Q2W Changed quetiapine [Seroquel XR] 200 mg tablet extended release 24 hr 200 mg PO BEDTIME Qty: 30 0RF diazepam 5 mg tablet 10 mg PO BEDTIME PRN (Reason: dystonic reaction) Qty: 30 0RF benztropine 0.5 mg tablet 0.5 mg PO BID Qty: 30 0RF risperidone 0.25 mg tablet 0.25 mg PO BID Qty: 30 0RF Rx Instructions: =DOSE INCREASED since 05/30/24= Discontinued lithium carbonate 300 mg tablet extended release 2 tab PO BID quetiapine 400 mg tablet extended release 24 hr 2 tab PO QPM clonazepam 0.5 mg tablet 0.5 mg PO DAILY PRN (Reason: severe anxiety) 30 Days Qty: 8 0RF Rx Instructions: take 1/2 tablet twice a day as needed for anxiety Stand Alone Forms: Patient Portal Discharge page Print Language: Cambodian
--- NOTE | 2024-06-10 12:16 | P.PNPSP_ITS ---
Subjective Subjective Date of Service: 06/10/24 Reason For Visit: bipolar,PTSD Medication Compliance: Yes Side effects from medications: No Attending Groups: Yes Review of Systems Acute medical concerns: No Mental Status Exam Mental Status Exam Narrative: Alert, oriented, cooperative, calmer still experiencing moments of feeling emotionally overwhelmed but evidence of improved regulation since starting program, adequate level of cooperation and engagement. Eye contact intermittent. Mood anxious, affect anxious, no evidence of tearful, mood congruent. Speech normal. Thought process scattered but coherent. Thought content related to stressors, executive dysfunction, distractible, helplessness, denies hopelessness or SI. Denies thoughts to harm self or others.? No aggressive ideation or HI. No paranoia or delusional content elicited. Denies any AH, VH, TH. Insight and judgment fair but adequate. Diagnostics Vital Signs (24Hr): BMI result Body Mass Index 30.9 Assessment & Plan Assessment & Plan (1) Bipolar 2 disorder: Status: Acute Code(s): F31.81 - Bipolar II disorder (2) Other mixed anxiety disorders: Status: Acute Code(s): F41.3 - Other mixed anxiety disorders (3) Cognitive attention deficit: Status: Acute Code(s): R41.840 - Attention and concentration deficit (4) Acute dystonic reaction due to drugs: Status: Acute Code(s): G24.02 - Drug induced acute dystonia Assessment and Plan: resolved with decrease in Seroquel from 800 mg/d to 400 mg/d (5) Polyuria: Status: Acute Code(s): R35.89 - Other polyuria Assessment and Plan: Hypotonic polyuria-polydipsia with nocturnal enuresis (without diurnal incontinence) likely Diabetes Insipidus >> primary polydipsia (given low urine osmolality << serum osm) r/o NDI (vs less likely CDI) Plan extend PHP continue [place] ER 450 mg BID (AM/HS) - considering switching to VPA due to concerns for diabetes insipidus (pending copeptin level (w/o prior water deprivation), >21.4 would be indicative of NDI, if < continue Seroquel XR 400/d (split 150 mg QPM@5pm / 250 mg QHS@8pm) continue risperidone 0.125 mg TID (AM/lunch/3pm), or may take as QID (AM/11a/1p/3p) if intrusive thoughts emerge) continue benztropine 0.5 mg BID (QPM@5pm/QHS@8pm) continue diazepam 5 mg BID (QPM@5pm/QHS@8pm) increase gabapentin to 600 mg QPM@5pm (to target anxiety, sleep, neuralgia (finger tips injury) continue propranolol 20 mg BID (AM/HS) will consider transitioning to guanfacine and trial stimulant medication (adderall or modafinil) next week will plan to trial guanfacine ER (holding propranolol) and low dose Adderall once patient is more raphael continue to work-up patient for polyuria/polydipsia - eunatremic, low urine osmolality 208, pending copeptin level to see if can rule in/out Diabetes Insipidus, vs doing Water Deprivation test next week continue to monitor Certification I certify that partial hospital treatment is medically necessary due to the symptoms and problems resulting from the patient's mental illness and the failure to treat the patient at the partial hospital level of care would likely result in the patient requiring inpatient psychiatric care which could not be prevented at a less intensive level of care. Total time managing care of this patient today ____ minutes. Discharge Plan Discharge Attending provider: Dee Griffin Medications: New guanfacine 1 mg tablet extended release 24 hr 1 mg PO DAILY Qty: 14 0RF lisdexamfetamine 10 mg capsule 10 mg PO DAILY Qty: 30 0RF Rx Instructions: Partial Fill upon patient request. quetiapine 150 mg tablet extended release 24 hr 150 mg PO DAILY Qty: 30 0RF quetiapine 50 mg tablet extended release 24 hr 50 mg PO BID Qty: 30 0RF Rx Instructions: in morning and afternoon dextroamphetamine-amphetamine [Adderall] 5 mg tablet 5 mg PO BID Qty: 20 0RF Rx Instructions: administer doses at least 4-6 hours apart; Partial Fill upon patient request. modafinil 100 mg tablet 100 mg PO QAM Qty: 14 0RF levomefolate calcium 15 mg tablet 15 mg PO DAILY Qty: 30 2RF divalproex [Depakote ER] 250 mg tablet extended release 24 hr 250 mg PO BID Qty: 30 0RF Continued levothyroxine 100 mcg tablet 1 tab PO DAILY montelukast 10 mg tablet 1 tab PO DAILY lithium carbonate 450 mg tablet extended release 450 mg PO BID Qty: 30 0RF propranolol 20 mg tablet 20 mg PO BID Qty: 30 0RF gabapentin 300 mg capsule 300 mg PO TID Qty: 90 0RF memantine 14 mg capsule,sprinkle,ER 24hr 14 mg PO BEDTIME Qty: 30 0RF adalimumab-adbm [Cyltezo(CF) Pen] 40 mg/0.8 mL pen injector kit 40 mg subcut Q2W Changed quetiapine [Seroquel XR] 200 mg tablet extended release 24 hr 200 mg PO BEDTIME Qty: 30 0RF diazepam 5 mg tablet 10 mg PO BEDTIME PRN (Reason: dystonic reaction) Qty: 30 0RF benztropine 0.5 mg tablet 0.5 mg PO BID Qty: 30 0RF risperidone 0.25 mg tablet 0.25 mg PO BID Qty: 30 0RF Rx Instructions: =DOSE INCREASED since 05/30/24= Discontinued lithium carbonate 300 mg tablet extended release 2 tab PO BID quetiapine 400 mg tablet extended release 24 hr 2 tab PO QPM clonazepam 0.5 mg tablet 0.5 mg PO DAILY PRN (Reason: severe anxiety) 30 Days Qty: 8 0RF Rx Instructions: take 1/2 tablet twice a day as needed for anxiety Stand Alone Forms: Patient Portal Discharge page Print Language: [place] Citizen
--- NOTE | 2024-06-12 23:50 | HO.PHPPROGNO ---
Subjective Subjective Date of Service: 06/12/24 Reason For Visit: bipolar,PTSD Interim History: Patient seen for follow-up at 08:45am. ?getting used to the night time 17:00 meds Patient has been taking gabapentin 600 mg with the 17:00 meds and this has certainly improved the issues with waking up feeling over-sedated. Says ?she does feel a little tired but not bad?. The downside now is that she is waking up more frequently during the night and it has been difficult to go back to sleep. She notes that being up in the middle of night feels very overwhelming, mostly because she does not know what to do with herself. ?I am not going to call it suicidal I think it is more that I am discouraged and easily overwhelmed . Her weight this morning (non water restriction) is 174.1 lbs. We review the plan tonight to withhold all fluids and not to drink or eat anything after 22:00, and will come by in the AM to picker and sorter load and unload lab slip. She shares that she is anxious about wetting herself she also shares that she is anticipating her period, as her menses is due early next week. She notes that her periods are very predictable income every month. She reports struggling with severe PMS symptoms and that her periods are very painful, intense with heavy bleeding that last nearly a week. About 6 days. She starts getting easily overwhelmed discussing the prospect of dealing with the emotionality and cramping. Checked in at end of day. She was not able to appreciate any significant changes with Adderall thus far. For now we will hold off on ADderall tomorrow so she can focus on the water deprivation getting to the lab in the morning. Will also hold off starting Depakote until next week Medication Compliance: Yes Side effects from medications: Yes (Seroquel - acute (laryngeal) dystonia. [place] - polydip/polyuria) Attending Groups: Yes Review of Systems Acute medical concerns: No Mental Status Exam Mental Status Exam Narrative: Alert, oriented, cooperative, calmer still experiencing moments of feeling emotionally overwhelmed but evidence of improved regulation since starting program, adequate level of cooperation and engagement. Eye contact good. Mood anxious, affect anxious, but much brighter periods of lability. Speech normal. Thought process scattered but coherent. Thought content related to stressors, executive dysfunction, distractible, some helplessness, denies hopelessness or SI. Is future-oriented but utilizes humor well. Denies thoughts to harm self or others.? No aggressive ideation or HI. No paranoia or delusional content elicited. Denies any AH, VH, TH. Insight and judgment fair but adequate. 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 (Li can also cause central DI though much less likely) (creatinine has been >1.0 for past few years) (5) Acute dystonic reaction due to drugs: Status: Acute Code(s): G24.02 - Drug induced acute dystonia Plan extend PHP today starting Adderall 2.5 mg this morning start guanfacine ER 1 mg qam (tomorrow, will hold off tomorrow AM (due to water deprivation test) also hold off for weekend, will resume next week continue [place] ER 450 mg BID (AM/HS) - considering switching to VPA due to concerns for diabetes insipidus continue Seroquel XR 400/d (split 150 mg QPM@5pm / 250 mg QHS@8pm) continue risperidone 0.125 mg TID (AM/lunch/3pm) continue benztropine 0.5 mg BID (QPM@5pm/QHS@8pm) continue diazepam 5 mg BID (QPM@5pm/QHS@8pm) continue gabapentin 600 mg QPM@5pm (consider splitting dose PM/HS to better help with sleep, 600 mg qhs too sedating in AM) continue propranolol 20 mg BID (AM/HS) will consider transitioning to guanfacine and trial stimulant medication (adderall or modafinil) next week will plan to trial guanfacine ER (holding propranolol) and restart Adderall continue to work-up patient for polyuria/polydipsia due to DI - eunatremic, low urine osmolality, norm serum osmolality likely DI Water Deprivation test tomorrow AM (patient will refrain from any fluid intake after 10 pm tonight until urine/blood draw in AM) continue to monitor Patient educated on: diagnosis, medication risk/benefits and medical condition Informed Consent: understands Reason for contiued partial hosp. stay Substantial Risk for: inability to function and med/psych decompensation Certification I certify that partial hospital treatment is medically necessary due to the symptoms and problems resulting from the patient's mental illness and the failure to treat the patient at the partial hospital level of care would likely result in the patient requiring inpatient psychiatric care which could not be prevented at a less intensive level of care. Total time managing care of this patient today __30__ minutes. Discharge Plan Discharge Attending provider: Dee Griffin Medications: New guanfacine 1 mg tablet extended release 24 hr 1 mg PO DAILY Qty: 14 0RF lisdexamfetamine 10 mg capsule 10 mg PO DAILY Qty: 30 0RF Rx Instructions: Partial Fill upon patient request. quetiapine 150 mg tablet extended release 24 hr 150 mg PO DAILY Qty: 30 0RF quetiapine 50 mg tablet extended release 24 hr 50 mg PO BID Qty: 30 0RF Rx Instructions: in morning and afternoon dextroamphetamine-amphetamine [Adderall] 5 mg tablet 5 mg PO BID Qty: 20 0RF Rx Instructions: administer doses at least 4-6 hours apart; Partial Fill upon patient request. modafinil 100 mg tablet 100 mg PO QAM Qty: 14 0RF levomefolate calcium 15 mg tablet 15 mg PO DAILY Qty: 30 2RF divalproex [Depakote ER] 250 mg tablet extended release 24 hr 250 mg PO BID Qty: 30 0RF Continued levothyroxine 100 mcg tablet 1 tab PO DAILY montelukast 10 mg tablet 1 tab PO DAILY lithium carbonate 450 mg tablet extended release 450 mg PO BID Qty: 30 0RF propranolol 20 mg tablet 20 mg PO BID Qty: 30 0RF gabapentin 300 mg capsule 300 mg PO TID Qty: 90 0RF memantine 14 mg capsule,sprinkle,ER 24hr 14 mg PO BEDTIME Qty: 30 0RF adalimumab-adbm [Cyltezo(CF) Pen] 40 mg/0.8 mL pen injector kit 40 mg subcut Q2W Changed quetiapine [Seroquel XR] 200 mg tablet extended release 24 hr 200 mg PO BEDTIME Qty: 30 0RF diazepam 5 mg tablet 10 mg PO BEDTIME PRN (Reason: dystonic reaction) Qty: 30 0RF benztropine 0.5 mg tablet 0.5 mg PO BID Qty: 30 0RF risperidone 0.25 mg tablet 0.25 mg PO BID Qty: 30 0RF Rx Instructions: =DOSE INCREASED since 05/30/24= Discontinued lithium carbonate 300 mg tablet extended release 2 tab PO BID quetiapine 400 mg tablet extended release 24 hr 2 tab PO QPM clonazepam 0.5 mg tablet 0.5 mg PO DAILY PRN (Reason: severe anxiety) 30 Days Qty: 8 0RF Rx Instructions: take 1/2 tablet twice a day as needed for anxiety Stand Alone Forms: Patient Portal Discharge page Print Language: Guatemalan
[2024-06-13 08:30] VITALS: BMI 30.1
--- NOTE | 2024-06-13 12:00 | P.PNPSP_ITS ---
Subjective Subjective Date of Service: 06/13/24 Reason For Visit: bipolar,PTSD Interim History: Patient seen early this morning at 8:30am. She has come in to get the lab work done for water deprivation testing for diabetes insipidus. She reports falling asleep yesterday less than an hour after taking her 17:00 medication. She has not drank any water in the past 14+ hours. She has also been up since 02:30 in the morning, unable to fall back asleep due to missing her bedtime medication. She felt it was too late to take it as she was afraid she would miss getting to program on time and completing the lab work. Her weight this morning without shoes is 170.0 lbs, (which is -4.1 lbs from 24 hrs ago) and is feeling a little agitated and feeling weird . She still had an accident earlier, is unsure but maybe thinks she peed less last night. BUt is also very focused on getting to the lab so she can resume drinking. She says she generally does not go any extended amount of time without drinking. After returning from lab, she was in good spirits, although was concerned about having an accident in groups once she was able to start drinking water again and took care to wear extra protection today. She reportedly feeling loopy and emotional from disrupted sleep. No SI, HI, AH, VH. Medication Compliance: Yes Side effects from medications: Yes (acute dystonic reaction from SGA, polydipsia, polyuria, likely DI from Li) Attending Groups: Yes Review of Systems Acute medical concerns: No Mental Status Exam Mental Status Exam Narrative: Alert, oriented, cooperative, calmer still experiencing moments of feeling emotionally overwhelmed but evidence of improved regulation since starting program, adequate level of cooperation and engagement. Eye contact good. Mood anxious, affect anxious, but much brighter. Speech normal. Thought process scattered but coherent. Thought content related to stressors, executive dysfunction, distractible, some helplessness, denies hopelessness or SI. Is future-oriented but utilizes humor well. Denies thoughts to harm self or others.? No aggressive ideation or HI. No paranoia or delusional content elicited. Denies any AH, VH, TH. Insight and judgment fair but adequate. Diagnostics Vital Signs (24Hr): BMI result Body Mass Index 30.9 Assessment & Plan Assessment & Plan (1) Bipolar 2 disorder: Status: Acute Code(s): F31.81 - Bipolar II disorder (2) Other mixed anxiety disorders: Status: Acute Code(s): F41.3 - Other mixed anxiety disorders (3) Cognitive attention deficit: Status: Acute Code(s): R41.840 - Attention and concentration deficit (4) Acute dystonic reaction due to drugs: Status: Acute Code(s): G24.02 - Drug induced acute dystonia (5) Polyuria: Status: Acute Code(s): R35.89 - Other polyuria Assessment and Plan: highly likely to be due to diabetes insipidus Plan extend PHP Labwork this morning - urine sodium, osmolality; serum sodium and osm; copeptin; also LH FSH to check for menopausal status hold Adderall 2.5 mg bid today continue [place] ER 450 mg BID (AM/HS) - considering switching to VPA due to concerns for diabetes insipidus continue Seroquel XR 400/d (split 150 mg QPM@5pm / 250 mg QHS@8pm) continue risperidone 0.125 mg TID (AM/lunch/3pm) continue benztropine 0.5 mg BID (QPM@5pm/QHS@8pm) continue diazepam 5 mg BID (QPM@5pm/QHS@8pm) continue gabapentin 600 mg (splitting dose 300 mg PM/ 300 mg HS) may consider lowering dose to 400 mg continue propranolol 20 mg BID (AM/HS) will consider transitioning to guanfacine and trial stimulant medication (adderall or modafinil) next week will start transitioning onto VPA (off lithium) next week will also restart Adderall and consider switching from propranolol to guanfacine ER continue to work-up patient for polyuria/polydipsia, appears to be diabetes insipidus today Water deprivation test (may clarify NDI vs CDI) - Patient fuild restricted x 14 hrs (last po intake was 6pm 06/13/23 continue to monitor Patient educated on: diagnosis, medication risk/benefits and medical condition Informed Consent: understands Reason for contiued partial hosp. stay Substantial Risk for: inability to function and med/psych decompensation Certification I certify that partial hospital treatment is medically necessary due to the symptoms and problems resulting from the patient's mental illness and the failure to treat the patient at the partial hospital level of care would likely result in the patient requiring inpatient psychiatric care which could not be prevented at a less intensive level of care. Total time managing care of this patient today __45__ minutes. Discharge Plan Discharge Attending provider: Dee Griffin Medications: New guanfacine 1 mg tablet extended release 24 hr 1 mg PO DAILY Qty: 14 0RF lisdexamfetamine 10 mg capsule 10 mg PO DAILY Qty: 30 0RF Rx Instructions: Partial Fill upon patient request. quetiapine 150 mg tablet extended release 24 hr 150 mg PO DAILY Qty: 30 0RF quetiapine 50 mg tablet extended release 24 hr 50 mg PO BID Qty: 30 0RF Rx Instructions: in morning and afternoon dextroamphetamine-amphetamine [Adderall] 5 mg tablet 5 mg PO BID Qty: 20 0RF Rx Instructions: administer doses at least 4-6 hours apart; Partial Fill upon patient request. modafinil 100 mg tablet 100 mg PO QAM Qty: 14 0RF levomefolate calcium 15 mg tablet 15 mg PO DAILY Qty: 30 2RF divalproex [Depakote ER] 250 mg tablet extended release 24 hr 250 mg PO BID Qty: 30 0RF Continued levothyroxine 100 mcg tablet 1 tab PO DAILY montelukast 10 mg tablet 1 tab PO DAILY lithium carbonate 450 mg tablet extended release 450 mg PO BID Qty: 30 0RF propranolol 20 mg tablet 20 mg PO BID Qty: 30 0RF gabapentin 300 mg capsule 300 mg PO TID Qty: 90 0RF memantine 14 mg capsule,sprinkle,ER 24hr 14 mg PO BEDTIME Qty: 30 0RF adalimumab-adbm [Cyltezo(CF) Pen] 40 mg/0.8 mL pen injector kit 40 mg subcut Q2W Changed quetiapine [Seroquel XR] 200 mg tablet extended release 24 hr 200 mg PO BEDTIME Qty: 30 0RF diazepam 5 mg tablet 10 mg PO BEDTIME PRN (Reason: dystonic reaction) Qty: 30 0RF benztropine 0.5 mg tablet 0.5 mg PO BID Qty: 30 0RF risperidone 0.25 mg tablet 0.25 mg PO BID Qty: 30 0RF Rx Instructions: =DOSE INCREASED since 05/30/24= Discontinued lithium carbonate 300 mg tablet extended release 2 tab PO BID quetiapine 400 mg tablet extended release 24 hr 2 tab PO QPM clonazepam 0.5 mg tablet 0.5 mg PO DAILY PRN (Reason: severe anxiety) 30 Days Qty: 8 0RF Rx Instructions: take 1/2 tablet twice a day as needed for anxiety Stand Alone Forms: Patient Portal Discharge page Print Language: Solomon Islander
[2024-06-13 12:42] VITALS: BMI 30.9
--- NOTE | 2024-06-17 12:03 | P.PNPSP_ITS ---
Subjective Subjective Date of Service: 06/17/24 Reason For Visit: bipolar,PTSD Interim History: Patient expressed preference to continue with this detail assembler as an outpatient, especially since she lost her psych provider at [facility] and has not yet started with a new provider there. She shares that she discussed this Mental Status Exam Mental Status Exam Narrative: Alert, oriented, cooperative, calmer still experiencing moments of feeling emotionally overwhelmed but evidence of improved regulation since starting program, adequate level of cooperation and engagement. Eye contact good. Mood anxious, affect anxious, but much brighter periods of lability. Speech normal. Thought process scattered but coherent. Thought content related to stressors, executive dysfunction, distractible, some helplessness, denies hopelessness or SI. Is future-oriented but utilizes humor well. Denies thoughts to harm self or others.? No aggressive ideation or HI. No paranoia or delusional content e licited. Denies any AH, VH, TH. Insight and judgment fair but adequate. Diagnostics Vital Signs (24Hr): BMI result Body Mass Index 30.9 Assessment & Plan Assessment & Plan (1) Bipolar 2 disorder: Status: Acute Code(s): F31.81 - Bipolar II disorder (2) Other mixed anxiety disorders: Status: Acute Code(s): F41.3 - Other mixed anxiety disorders (3) Cognitive attention deficit: Status: Acute Code(s): R41.840 - Attention and concentration deficit (4) Urinary incontinence, nocturnal enuresis: Status: Inactive Code(s): N39.44 - Nocturnal enuresis (5) Acute dystonic reaction due to drugs: Status: Acute Code(s): G24.02 - Drug induced acute dystonia (6) PMDD (premenstrual dysphoric disorder): Status: Acute Code(s): F32.81 - Premenstrual dysphoric disorder (7) Heavy menstrual bleeding: Status: Acute Code(s): N92.0 - Excessive and frequent menstruation with regular cycle Plan extend PHP continue to hold Adderall until menses/PMDD resolves start progesterone 100 mg daily (day 5-25) increase Depakote ER to 500 mg qhs decrease [place] ER to 750 mg/d (split 450/300) and continue to taper as tolerated - taper off due to NDI continue Seroquel XR 400/d (split 150 mg QPM@5pm / 250 mg QHS@8pm) , will switch to ER 200 mg BID increase risperidone to 0.25 mg TID (AM/lunch/3pm) to target PMDD this week, then return to 0.125 mg TID continue benztropine 0.5 mg BID (QPM@5pm/QHS@8pm) continue diazepam 5 mg BID (QPM@5pm/QHS@8pm) decrease gabapentin to 300 mg QHS (sedation lingers into AM) but feels it is helping with nerve damage pain continue propranolol 20 mg BID (AM/HS) will consider transitioning to guanfacine and trial stimulant medication (adderall or modafinil) next week will plan to restart Adderall and consider switching from propranolol to guanfacine ER continue to work-up patient for polyuria/polydipsia, appears to be diabetes insipidus pending copeptin from water depreivations will get VPA level later next week, may consider f/u on elevated [place] (presumably related to psoriasis) consider checking ?anti DS Ab Water deprivation test completed 06/13 (to determine whether NDI vs CDI) - Patient fluid restricted x 14 hrs (last po intake was 6pm 06/13/23 continue to monitor Patient educated on: diagnosis, medication risk/benefits and medical condition Informed Consent: understands Reason for contiued partial hosp. stay Substantial Risk for: harm to self, inability to function, rapid decompensation and med/psych decompensation Certification I certify that partial hospital treatment is medically necessary due to the symptoms and problems resulting from the patient's mental illness and the failure to treat the patient at the partial hospital level of care would likely result in the patient requiring inpatient psychiatric care which could not be prevented at a less intensive level of care. Total time managing care of this patient today _60___ minutes. Discharge Plan Discharge Attending provider: Dee Griffin Medications: New guanfacine 1 mg tablet extended release 24 hr 1 mg PO DAILY Qty: 14 0RF lisdexamfetamine 10 mg capsule 10 mg PO DAILY Qty: 30 0RF Rx Instructions: Partial Fill upon patient request. dextroamphetamine-amphetamine [Adderall] 5 mg tablet 5 mg PO BID Qty: 20 0RF Rx Instructions: administer doses at least 4-6 hours apart; Partial Fill upon patient request. levomefolate calcium 15 mg tablet 15 mg PO DAILY Qty: 30 2RF progesterone micronized 100 mg capsule 100 mg PO QAM 21 Days Qty: 21 0RF Rx Instructions: off 7 days; repeat cycle L-Carnitine 500 mg tablet 500 mg PO BID Qty: 60 1RF Rx Instructions: must administer with a meal/food bupropion HCl 100 mg tablet sustained-release 12 hr 100 mg PO QAM Qty: 14 0RF cariprazine 1.5 mg capsule 1.5 mg PO DAILY Qty: 30 0RF Continued levothyroxine 100 mcg tablet 1 tab PO DAILY montelukast 10 mg tablet 1 tab PO DAILY memantine 14 mg capsule,sprinkle,ER 24hr 14 mg PO BEDTIME Qty: 30 0RF quetiapine 150 mg tablet extended release 24 hr 150 mg PO DAILY Qty: 30 0RF adalimumab-adbm [Cyltezo(CF) Pen] 40 mg/0.8 mL pen injector kit 40 mg subcut Q2W Changed quetiapine [Seroquel XR] 200 mg tablet extended release 24 hr 200 mg PO BEDTIME Qty: 30 0RF quetiapine 50 mg tablet extended release 24 hr 50 mg PO BEDTIME Qty: 30 0RF Rx Instructions: in morning and afternoon risperidone 0.25 mg tablet 0.25 mg PO BID Qty: 60 0RF Rx Instructions: =DOSE INCREASED since 05/30/24= benztropine 0.5 mg tablet 0.5 mg PO BID Qty: 60 0RF diazepam 5 mg tablet 10 mg PO BEDTIME PRN (Reason: dystonic reaction) Qty: 60 0RF Discontinued lithium carbonate 300 mg tablet extended release 2 tab PO BID quetiapine 400 mg tablet extended release 24 hr 2 tab PO QPM clonazepam 0.5 mg tablet 0.5 mg PO DAILY PRN (Reason: severe anxiety) 30 Days Qty: 8 0RF Rx Instructions: take 1/2 tablet twice a day as needed for anxiety Stand Alone Forms: Patient Portal Discharge page Print Language: Chinese
--- NOTE | 2024-06-18 00:03 | HO.PHPPROGNO ---
Subjective Subjective Reason For Visit: bipolar,PTSD Diagnostics Vital Signs (24Hr): BMI result Body Mass Index 30.9 Assessment & Plan Certification I certify that partial hospital treatment is medically necessary due to the symptoms and problems resulting from the patient's mental illness and the failure to treat the patient at the partial hospital level of care would likely result in the patient requiring inpatient psychiatric care which could not be prevented at a less intensive level of care. Total time managing care of this patient today ____ minutes. Discharge Plan Discharge Attending provider: Dee Griffin Medications: New guanfacine 1 mg tablet extended release 24 hr 1 mg PO DAILY Qty: 14 0RF lisdexamfetamine 10 mg capsule 10 mg PO DAILY Qty: 30 0RF Rx Instructions: Partial Fill upon patient request. dextroamphetamine-amphetamine [Adderall] 5 mg tablet 5 mg PO BID Qty: 20 0RF Rx Instructions: administer doses at least 4-6 hours apart; Partial Fill upon patient request. modafinil 100 mg tablet 100 mg PO QAM Qty: 14 0RF levomefolate calcium 15 mg tablet 15 mg PO DAILY Qty: 30 2RF divalproex [Depakote ER] 250 mg tablet extended release 24 hr 250 mg PO BID Qty: 30 0RF lithium carbonate 300 mg tablet extended release 300 mg PO BEDTIME Qty: 15 0RF Continued levothyroxine 100 mcg tablet 1 tab PO DAILY montelukast 10 mg tablet 1 tab PO DAILY propranolol 20 mg tablet 20 mg PO BID Qty: 30 0RF memantine 14 mg capsule,sprinkle,ER 24hr 14 mg PO BEDTIME Qty: 30 0RF quetiapine 150 mg tablet extended release 24 hr 150 mg PO DAILY Qty: 30 0RF adalimumab-adbm [Cyltezo(CF) Pen] 40 mg/0.8 mL pen injector kit 40 mg subcut Q2W Changed quetiapine [Seroquel XR] 200 mg tablet extended release 24 hr 200 mg PO BEDTIME Qty: 30 0RF quetiapine 50 mg tablet extended release 24 hr 50 mg PO BEDTIME Qty: 30 0RF Rx Instructions: in morning and afternoon risperidone 0.25 mg tablet 0.25 mg PO BID Qty: 60 0RF Rx Instructions: =DOSE INCREASED since 05/30/24= lithium carbonate 450 mg tablet extended release 450 mg PO QAM Qty: 15 0RF benztropine 0.5 mg tablet 0.5 mg PO BID Qty: 60 0RF gabapentin 300 mg capsule 300 mg PO BID Qty: 60 0RF diazepam 5 mg tablet 10 mg PO BEDTIME PRN (Reason: dystonic reaction) Qty: 60 0RF Discontinued lithium carbonate 300 mg tablet extended release 2 tab PO BID quetiapine 400 mg tablet extended release 24 hr 2 tab PO QPM clonazepam 0.5 mg tablet 0.5 mg PO DAILY PRN (Reason: severe anxiety) 30 Days Qty: 8 0RF Rx Instructions: take 1/2 tablet twice a day as needed for anxiety Stand Alone Forms: Patient Portal Discharge page Print Language: Occitan
--- NOTE | 2024-06-18 12:19 | HO.PHP ---
The patient left the second group without notification to the Program staff. The clinician called her at her cell phone and she reported that was on her car and asked the clinician if she sent security after her. The clinician asked her to come back and talk and the patient agreed and reported that she use her marijuana at her car (vape). She reported to be in pain because of he period and indicated chata of her period and reported to miss her night time meds . She reported to have suicidal thoughts without a plan or intent. The clinician offered to take her to be evaluated by crisis but she reported to feel better after taking and went to have lunch with the rest of the group.
--- NOTE | 2024-06-20 12:33 | HO.PHPPROGNO ---
Subjective Subjective Date of Service: 06/19/24 Reason For Visit: bipolar,PTSD Interim History: Patient seen for follow-up. Today is shitty, but different today vs yesterday. SHe reports feeling she has turned a corner with her period. Still struggling with extreme mood and behavioral dysregulation exacerbated during her period. The worst is days 1-4 and 5, the last few days of her period (days 6 and 7) the mood swings, intrusive thoughts and SI tend to start letting up . She appears tired in the AM and will plan to move progesterone to nighttime. For now will continue with cross titration off of lithium and onto Depakote. Still quite labile, irritable, feeling crazy . Will plan to keep her current meds at the half doses of their previous doses she came in at. Seroquel XR (which was at 800 mg/d) was immediately knocked down to 200 mg and brought back up to 400 mg/d now in split dose 150/250 to avoid provoking laryngeal dystonia. [place] also only on half the amount she was on at admission, at 300 mg BID (previously was 600 mg BID). She will also need to start on acetyl-l- carnitine supplementation given patient is borderline deficient, especially since we are transitioning off lithium and trying to address Bipolar depression with combo of Depakote and Wellbutrin, since emotional dysregulation/mixed symptoms will be addressed by the DEpakote but will likely need to Wellbutrin to help with more depressive sx. If tolerated, we may be able to eventually taper off [place] given potential for ongoing risks if NDI (dehydration, electrolyte imbalances, kidney damage) Mental Status Exam Mental Status Exam Narrative: Alert, oriented, cooperative, calmer still experiencing moments of feeling emotionally overwhelmed but evidence of improved regulation since starting program, adequate level of cooperation and engagement. Eye contact good. Mood anxious, affect anxious, but much brighter periods of lability. Speech normal. Thought process scattered but coherent. Thought content related to stressors, executive dysfunction, distractible, some helplessness, denies hopelessness or SI. Is future-oriented but utilizes humor well. Denies thoughts to harm self or others.? No aggressive ideation or HI. No paranoia or delusional content elicited. Denies any AH, VH, TH. Insight and judgment fair but adequate. Diagnostics Vital Signs (24Hr): BMI result Body Mass Index 30.9 Assessment & Plan Assessment & Plan (1) Bipolar 2 disorder: Status: Acute Code(s): F31.81 - Bipolar II disorder (2) Other mixed anxiety disorders: Status: Acute Code(s): F41.3 - Other mixed anxiety disorders (3) Cognitive attention deficit: Status: Acute Code(s): R41.840 - Attention and concentration deficit (4) Urinary incontinence, nocturnal enuresis: Status: Inactive Code(s): N39.44 - Nocturnal enuresis (5) Acute dystonic reaction due to drugs: Status: Acute Code(s): G24.02 - Drug induced acute dystonia (6) PMDD (premenstrual dysphoric disorder): Status: Acute Code(s): F32.81 - Premenstrual dysphoric disorder (7) Heavy menstrual bleeding: Status: Acute Code(s): N92.0 - Excessive and frequent menstruation with regular cycle (8) Diabetes insipidus, nephrogenic: Status: Acute Code(s): N25.1 - Nephrogenic diabetes insipidus Plan continue PHP move progesterone 100 mg to QHS (day 5-25) start Wellbutrin SR 50-100 mg qam increase Depakote ER to 750 mg qhs tonight (will consider whether to increase to 1000 mg/d) decrease [place] ER 300 mg BID x2 days, then decrease to 300 mg QAM x 2 days and then discontinue (due to NDI) continue Seroquel XR 400/d (split 150 mg QPM@5pm / 250 mg QHS@8pm) , will switch to ER 200 mg BID continue risperidone 0.25 mg TID (AM/lunch/3pm) to target PMDD this week, then return to 0.125 mg TID continue benztropine 0.5 mg BID (QPM@5pm/QHS@8pm) continue diazepam 5 mg BID (QPM@5pm/QHS@8pm) continue gabapentin to 300 mg QHS (sedation lingers into AM) but feels it is helping with nerve damage pain continue propranolol 20 mg BID (AM/HS) will consider transitioning to guanfacine and trial stimulant medication (adderall or modafinil) next week will plan to restart Adderall and consider switching from propranolol to guanfacine ER continue to work-up patient for polyuria/polydipsia, appears to be diabetes insipidus pending copeptin from water depreivations will get VPA level later next week, may consider f/u on elevated [place] (presumably related to psoriasis) consider checking ?anti DS Ab Water deprivation test completed 06/13 (to determine whether NDI vs CDI) - Patient fluid restricted x 14 hrs (last po intake was 6pm 06/13/23 continue to monitor Patient educated on: diagnosis, medication risk/benefits and medical condition Informed Consent: understands Reason for contiued partial hosp. stay Substantial Risk for: inability to function, rapid decompensation and med/psych decompensation Certification I certify that partial hospital treatment is medically necessary due to the symptoms and problems resulting from the patient's mental illness and the failure to treat the patient at the partial hospital level of care would likely result in the patient requiring inpatient psychiatric care which could not be prevented at a less intensive level of care. Total time managing care of this patient today __60__ minutes. Discharge Plan Discharge Attending provider: Dee Griffin Medications: New guanfacine 1 mg tablet extended release 24 hr 1 mg PO DAILY Qty: 14 0RF lisdexamfetamine 10 mg capsule 10 mg PO DAILY Qty: 30 0RF Rx Instructions: Partial Fill upon patient request. dextroamphetamine-amphetamine [Adderall] 5 mg tablet 5 mg PO BID Qty: 20 0RF Rx Instructions: administer doses at least 4-6 hours apart; Partial Fill upon patient request. levomefolate calcium 15 mg tablet 15 mg PO DAILY Qty: 30 2RF progesterone micronized 100 mg capsule 100 mg PO QAM 21 Days Qty: 21 0RF Rx Instructions: off 7 days; repeat cycle L-Carnitine 500 mg tablet 500 mg PO BID Qty: 60 1RF Rx Instructions: must administer with a meal/food bupropion HCl 100 mg tablet sustained-release 12 hr 100 mg PO QAM Qty: 14 0RF cariprazine 1.5 mg capsule 1.5 mg PO DAILY Qty: 30 0RF Continued levothyroxine 100 mcg tablet 1 tab PO DAILY montelukast 10 mg tablet 1 tab PO DAILY memantine 14 mg capsule,sprinkle,ER 24hr 14 mg PO BEDTIME Qty: 30 0RF quetiapine 150 mg tablet extended release 24 hr 150 mg PO DAILY Qty: 30 0RF adalimumab-adbm [Cyltezo(CF) Pen] 40 mg/0.8 mL pen injector kit 40 mg subcut Q2W Changed quetiapine [Seroquel XR] 200 mg tablet extended release 24 hr 200 mg PO BEDTIME Qty: 30 0RF quetiapine 50 mg tablet extended release 24 hr 50 mg PO BEDTIME Qty: 30 0RF Rx Instructions: in morning and afternoon risperidone 0.25 mg tablet 0.25 mg PO BID Qty: 60 0RF Rx Instructions: =DOSE INCREASED since 05/30/24= benztropine 0.5 mg tablet 0.5 mg PO BID Qty: 60 0RF diazepam 5 mg tablet 10 mg PO BEDTIME PRN (Reason: dystonic reaction) Qty: 60 0RF Discontinued lithium carbonate 300 mg tablet extended release 2 tab PO BID quetiapine 400 mg tablet extended release 24 hr 2 tab PO QPM clonazepam 0.5 mg tablet 0.5 mg PO DAILY PRN (Reason: severe anxiety) 30 Days Qty: 8 0RF Rx Instructions: take 1/2 tablet twice a day as needed for anxiety Stand Alone Forms: Patient Portal Discharge page Print Language: Bulgarian
--- NOTE | 2024-06-20 12:33 | HO.PHP ---
Clinician met with the patient because she manifested the need to talk with someone and presented dysregulated. During the conversation the client reported that a participant who started the Program is making her feel triggered because they had a challenging situation during a prior participation in the program and she is experiencing a lot of anger. She was requesting advise about how to handle the situation and some coping skills were recommended. The clinician discussed the issue with the Parimutuel Cashier and the doctor from the Program. The doctor reported that was going to meet with her during the day and the whole team will meet on Sunday to discussed the situation.
--- NOTE | 2024-06-23 23:58 | HO.PHPPROGNO ---
Subjective Subjective Date of Service: 06/23/24 Reason For Visit: bipolar,PTSD Interim History: Patient very sedated today, was getting sleepy in groups. [place] tapering off, cross titrating on Depakote which is now at 750 mg qhs. Mood appears level, but feeling very flat and wonders aloud if she is depressed. GIves example of driving over bridge and had thoughts to jump. SHe has a hsitory of feeling panick-stricken when driving over bridges. She also noticed experiencing hot flash through body at the time. She suspects the hot feeling occurs first, and then followed by the rise in anxiety and SI. This is not new, and she feels has been a problem for a while now (could be last year or farther back). DEnies haivng had any urge to act. Medication Compliance: Yes Side effects from medications: Yes Attending Groups: Yes Review of Systems Acute medical concerns: No Acute dystonic reaction Mental Status Exam Mental Status Exam Narrative: Alert, oriented, cooperative, slethargic, ataxic gait. Eye contact good. Mood anxious, affect anxious, blunted. Speech normal. Thought process scattered but coherent. Thought content related to stressors, executive dysfunction, distractible, helplessness, transient intrusive SI. Future-oriented but utilizes humor well. Gets emotionally overwhelmed easily Denies thoughts to harm self or others.? No aggressive ideation or HI. No paranoia or delusional content elicited. Denies any AH, VH, TH. Insight and judgment fair but adequate. Diagnostics Vital Signs (24Hr): BMI result Body Mass Index 30.9 Assessment & Plan Assessment & Plan (1) Bipolar 2 disorder: Status: Acute Code(s): F31.81 - Bipolar II disorder (2) Other mixed anxiety disorders: Status: Acute Code(s): F41.3 - Other mixed anxiety disorders (3) Cognitive attention deficit: Status: Acute Code(s): R41.840 - Attention and concentration deficit (4) Urinary incontinence, nocturnal enuresis: Status: Inactive Code(s): N39.44 - Nocturnal enuresis (5) Acute dystonic reaction due to drugs: Status: Acute Code(s): G24.02 - Drug induced acute dystonia (6) PMDD (premenstrual dysphoric disorder): Status: Acute Code(s): F32.81 - Premenstrual dysphoric disorder (7) Heavy menstrual bleeding: Status: Acute Code(s): N92.0 - Excessive and frequent menstruation with regular cycle (8) Diabetes insipidus, nephrogenic: Status: Acute Code(s): N25.1 - Nephrogenic diabetes insipidus Plan continue PHP start Wellbutrin SR 100 mg qam start Epajvc-N-Zqtbtzado 500-1000 mg/day in split doses to start lower Depakote ER to 500 mg/d (split 250 mg QPM/250 mg QHS) - may not be tolerating at 750 mg (?) off [place] since 300 mg Sunday AM continue Seroquel XR 400/d (split 150 mg@5pm / 250 mg@8pm) , will switch to ER 200 mg BID - consider ?500 mg) continue risperidone 0.25 mg TID (AM/lunch/3pm) to target PMDD this week, then return to 0.125 mg TID continue benztropine 0.5 mg BID (QPM@5pm/QHS@8pm) continue diazepam 5 mg BID (QPM@5pm/QHS@8pm) discontinue gabapentin (reduce polypharmacy, patient also unable to tolerate dose >300) continue propranolol 20 mg BID (AM/HS) will consider transitioning to guanfacine and trial stimulant medication (adderall or modafinil) restart Adderall 2.5 mg qam consider switching from propranolol to guanfacine ER continue progesterone 100 mg daily (day 5-25) continue to work-up patient for polyuria/polydipsia, appears to be diabetes insipidus pending copeptin from water depreivations will get VPA level later next week, may consider f/u on elevated [place] (presumably related to psoriasis) consider checking ?anti DS Ab Appears to be nephrogenic diabetes insipidus NDI vs CDI) continue to monitor Patient educated on: diagnosis and medication risk/benefits Informed Consent: understands Reason for contiued partial hosp. stay Substantial Risk for: harm to self, inability to function, rapid decompensation and med/psych decompensation Certification I certify that partial hospital treatment is medically necessary due to the symptoms and problems resulting from the patient's mental illness and the failure to treat the patient at the partial hospital level of care would likely result in the patient requiring inpatient psychiatric care which could not be prevented at a less intensive level of care. Total time managing care of this patient today __30__ minutes. Discharge Plan Discharge Attending provider: Dee Griffin Medications: New guanfacine 1 mg tablet extended release 24 hr 1 mg PO DAILY Qty: 14 0RF lisdexamfetamine 10 mg capsule 10 mg PO DAILY Qty: 30 0RF Rx Instructions: Partial Fill upon patient request. dextroamphetamine-amphetamine [Adderall] 5 mg tablet 5 mg PO BID Qty: 20 0RF Rx Instructions: administer doses at least 4-6 hours apart; Partial Fill upon patient request. levomefolate calcium 15 mg tablet 15 mg PO DAILY Qty: 30 2RF progesterone micronized 100 mg capsule 100 mg PO QAM 21 Days Qty: 21 0RF Rx Instructions: off 7 days; repeat cycle L-Carnitine 500 mg tablet 500 mg PO BID Qty: 60 1RF Rx Instructions: must administer with a meal/food bupropion HCl 100 mg tablet sustained-release 12 hr 100 mg PO QAM Qty: 14 0RF Continued levothyroxine 100 mcg tablet 1 tab PO DAILY montelukast 10 mg tablet 1 tab PO DAILY propranolol 20 mg tablet 20 mg PO BID Qty: 30 0RF memantine 14 mg capsule,sprinkle,ER 24hr 14 mg PO BEDTIME Qty: 30 0RF quetiapine 150 mg tablet extended release 24 hr 150 mg PO DAILY Qty: 30 0RF adalimumab-adbm [Cyltezo(CF) Pen] 40 mg/0.8 mL pen injector kit 40 mg subcut Q2W Changed quetiapine [Seroquel XR] 200 mg tablet extended release 24 hr 200 mg PO BEDTIME Qty: 30 0RF quetiapine 50 mg tablet extended release 24 hr 50 mg PO BEDTIME Qty: 30 0RF Rx Instructions: in morning and afternoon risperidone 0.25 mg tablet 0.25 mg PO BID Qty: 60 0RF Rx Instructions: =DOSE INCREASED since 05/30/24= benztropine 0.5 mg tablet 0.5 mg PO BID Qty: 60 0RF diazepam 5 mg tablet 10 mg PO BEDTIME PRN (Reason: dystonic reaction) Qty: 60 0RF Discontinued lithium carbonate 300 mg tablet extended release 2 tab PO BID quetiapine 400 mg tablet extended release 24 hr 2 tab PO QPM clonazepam 0.5 mg tablet 0.5 mg PO DAILY PRN (Reason: severe anxiety) 30 Days Qty: 8 0RF Rx Instructions: take 1/2 tablet twice a day as needed for anxiety Stand Alone Forms: Patient Portal Discharge page Print Language: Malay
--- NOTE | 2024-06-24 14:20 | HO.PHP ---
This clinician spoke twice with the patient due to reports of emotional dysregulation and escalation of suicidal thoughts. During both conversations the client was offered a crisis evaluation but she refused and indicated to feel like she's not at that point yet. She manifested no plan or intent and stated if I feel worst I will reach out for help. This clinician inquired about accessibility to the crisis and suicidal hotline phone numbers and the patient reported to have both. She indicated to feel that everything is because the medication adjustments that she is going through and to be trying hard to deal with it. She was encouraged to call for assistance if safety issues or an escalation of suicidal thoughts continues and the patient agreed.
--- NOTE | 2024-06-24 23:03 | P.PNPSP_ITS ---
Subjective Subjective Date of Service: 06/24/24 Reason For Visit: bipolar,PTSD Interim History: I feel less 'off' today Patient feeling less ataxic and spacey/sedated than yesterday after taking 500 mg Depakote yesterday. It is clear, at this time, she really can not tolerate the DEpakote. Still making her feel drunk . COnsidered other possible contributing factors such as reduction in diazepam may possibly be warranted. Initially added to help mitigate risk of acute dystonic reaction and potential for panic attacks. Will start cutting the diazepam in half, patient can utilize lorazepam. Will taper off Depakote today (last dose 250 mg) since patient is not tolerating this (causing her to be ataxic, overmedicated dopey ). SHe is also borderline carnitine deficient, which may be related. Patient really struggling with depressed mood, I can cry but otherwise I feel kind of blank...I don't like this . Patient needing still a lot of extra support by staff. Emotionally anxious at times, not worse than yesterday and overall feeling physically exhausted. Intrusive suicidal thoughts persist. She is forgetful, has been missing doses of Risperdal 0.125-0.25 mg. We started yesterday Wellbutrin SR 100 mg, she does not have any side effects, but will need to wait a few days before titrating. ASide from WB, will also need to back -up and add back some lithium seeing as she needs more emotional stabilization and lower mood. Having an emotional outburst or 2, a day. Mild slurring noticed later in day (after 5pm dose of Depakote). WIll not take any Dpeakote tomorrow. [place] 300 mg BID starting tonight. Spoke with patient's mother Yun [phone] home; [phone]. Patient mother has been concerned for past 2-3 days that patient has been very sedated and driving to [facility]. We discussed rationale for treatment, initial treatment steps including addressing acute dystonic reaction (laryngeal dystonia) and NDI. I am requesting patient or her mother order Ndvqvg-X-Jqcbsmvet 500-1000 mcg supplements which perhaps had they been started ahead of the Depakote and levels for repleted, Medication Compliance: Yes Side effects from medications: Yes (as noted) Attending Groups: Yes Review of Systems Acute medical concerns: No Mental Status Exam Mental Status Exam Narrative: Alert, oriented, cooperative, calmer still experiencing moments of feeling emotionally overwhelmed but evidence of improved regulation since starting program, adequate level of cooperation and engagement. Eye contact good. Mood anxious, affect anxious, but much brighter periods of lability. Speech normal. Thought process scattered but coherent. Thought content related to stressors, executive dysfunction, distractible, some helplessness, denies hopelessness or SI. Is future-oriented but utilizes humor well. Denies thoughts to harm self or others.? No aggressive ideation or HI. No paranoia or delusional content elicited. Denies any AH, VH, TH. Insight and judgment fair but adequate. Diagnostics Vital Signs (24Hr): BMI result Body Mass Index 30.9 Assessment & Plan Assessment & Plan (1) Bipolar 2 disorder: Status: Acute Code(s): F31.81 - Bipolar II disorder (2) Other mixed anxiety disorders: Status: Acute Code(s): F41.3 - Other mixed anxiety disorders (3) Cognitive attention deficit: Status: Acute Code(s): R41.840 - Attention and concentration deficit (4) Urinary incontinence, nocturnal enuresis: Status: Inactive Code(s): N39.44 - Nocturnal enuresis (5) Acute dystonic reaction due to drugs: Status: Acute Code(s): G24.02 - Drug induced acute dystonia (6) PMDD (premenstrual dysphoric disorder): Status: Acute Code(s): F32.81 - Premenstrual dysphoric disorder (7) Heavy menstrual bleeding: Status: Acute Code(s): N92.0 - Excessive and frequent menstruation with regular cycle (8) Diabetes insipidus, nephrogenic: Status: Acute Code(s): N25.1 - Nephrogenic diabetes insipidus Plan continue PHP continue Wellbutrin SR 100 mg qam pending start Nncqtp-F-Finewhfkv 500-1000 mg/day in split doses to start taper off Depakote ER 250 mg/d (last dose 5pm today) restart [place] 300 mg BID (last took Sat AM, off, restarting tonight Tues PM) continue Seroquel XR 400/d (split 150 mg@5pm / 250 mg@8pm) , will switch to ER 200 mg BID - consider ?500 mg) continue risperidone 0.125-0.25 mg TID (AM/lunch/3pm) to target PMDD this week, then return to 0.125 mg TID continue benztropine 0.5 mg BID (QPM@5pm/QHS@8pm) decrease diazepam to 2.5 mg BID (QPM@5pm/QHS@8pm) tomorrow (reduce polypharmacy, patient also unable to tolerate dose >300) continue propranolol 20 mg BID (AM/HS) will consider decreasing dose or transitioning to guanfacine and trial stimulant medication (adderall or modafinil) holding Adderall 2.5 mg qam continue progesterone 100 mg daily (day 5-25) discontinue gabapentin, depakote Will order lab work for the AM - check lytes, ammonia, may consider AI f/u (d/t elevated [place] (presumably related to psoriasis) consider checking ?anti DS AbD Dx: Nephrogenic diabetes insipidus - plan to work way off lithium (needing to add back on for worsening mood, emo unstable) Dx: laryngeal dystonia - resolved with lowering dose Seroquel from 800 mg qhs (to 400 mg in split dose) continue to monitor Patient educated on: diagnosis, medication risk/benefits and medical condition Informed Consent: understands Reason for contiued partial hosp. stay Substantial Risk for: inability to function and med/psych decompensation Certification I certify that partial hospital treatment is medically necessary due to the s ymptoms and problems resulting from the patient's mental illness and the failure to treat the patient at the partial hospital level of care would likely result in the patient requiring inpatient psychiatric care which could not be prevented at a less intensive level of care. Total time managing care of this patient today _50___ minutes. Discharge Plan Discharge Attending provider: Dee Griffin Medications: New guanfacine 1 mg tablet extended release 24 hr 1 mg PO DAILY Qty: 14 0RF lisdexamfetamine 10 mg capsule 10 mg PO DAILY Qty: 30 0RF Rx Instructions: Partial Fill upon patient request. dextroamphetamine-amphetamine [Adderall] 5 mg tablet 5 mg PO BID Qty: 20 0RF Rx Instructions: administer doses at least 4-6 hours apart; Partial Fill upon patient request. modafinil 100 mg tablet 100 mg PO QAM Qty: 14 0RF levomefolate calcium 15 mg tablet 15 mg PO DAILY Qty: 30 2RF divalproex [Depakote ER] 250 mg tablet extended release 24 hr 250 mg PO BID Qty: 30 0RF progesterone micronized 100 mg capsule 100 mg PO QAM 21 Days Qty: 21 0RF Rx Instructions: off 7 days; repeat cycle divalproex [Depakote ER] 500 mg tablet extended release 24 hr 1,000 mg PO DAILY Qty: 20 0RF L-Carnitine 500 mg tablet 500 mg PO BID Qty: 60 1RF Rx Instructions: must administer with a meal/food bupropion HCl 100 mg tablet sustained-release 12 hr 100 mg PO QAM Qty: 14 0RF Continued levothyroxine 100 mcg tablet 1 tab PO DAILY montelukast 10 mg tablet 1 tab PO DAILY propranolol 20 mg tablet 20 mg PO BID Qty: 30 0RF memantine 14 mg capsule,sprinkle,ER 24hr 14 mg PO BEDTIME Qty: 30 0RF quetiapine 150 mg tablet extended release 24 hr 150 mg PO DAILY Qty: 30 0RF adalimumab-adbm [Cyltezo(CF) Pen] 40 mg/0.8 mL pen injector kit 40 mg subcut Q2W Changed quetiapine [Seroquel XR] 200 mg tablet extended release 24 hr 200 mg PO BEDTIME Qty: 30 0RF quetiapine 50 mg tablet extended release 24 hr 50 mg PO BEDTIME Qty: 30 0RF Rx Instructions: in morning and afternoon risperidone 0.25 mg tablet 0.25 mg PO BID Qty: 60 0RF Rx Instructions: =DOSE INCREASED since 05/30/24= benztropine 0.5 mg tablet 0.5 mg PO BID Qty: 60 0RF gabapentin 300 mg capsule 300 mg PO BID Qty: 60 0RF diazepam 5 mg tablet 10 mg PO BEDTIME PRN (Reason: dystonic reaction) Qty: 60 0RF Discontinued lithium carbonate 300 mg tablet extended release 2 tab PO BID quetiapine 400 mg tablet extended release 24 hr 2 tab PO QPM clonazepam 0.5 mg tablet 0.5 mg PO DAILY PRN (Reason: severe anxiety) 30 Days Qty: 8 0RF Rx Instructions: take 1/2 tablet twice a day as needed for anxiety Stand Alone Forms: Patient Portal Discharge page Print Language: Gibraltarian
[2024-06-26 12:07] VITALS: BP 110/80; PULSE 80
--- NOTE | 2024-06-26 15:21 | HO.PHP ---
This clinician did a brief checking with the patient who presented with an increase of suicidal thoughts without a plan or intent. The client reported that still experiencing the thoughts but to have no plan or intent. She indicated that if the thoughts goes out of control she will reach out for help. Manifested to have the crisis and suicidal hot line phone numbers and to be able to call an ambulance in case of need.
--- NOTE | 2024-06-27 23:31 | P.PNPSP_ITS ---
Subjective Subjective Date of Service: 06/27/24 Reason For Visit: bipolar,PTSD Interim History: Patient seen for follow up. She is feeling more mentally clear and presenting with clearer sensorium today. Depakote which was titraed last weekend was causing too much sedation and ataxia. This was tapered off (last dose Sunday). Still had some residual side effects and was felt perhaps diazepam could be also reduced. Dose was tapered to 2.5 mg last night. She slept well last night without issue. No signs of symptoms of EPS/dystonia. She still is periodically falling asleep after 5 pm meds, and we may consider moving over 50 mg from PM to HS next week to facilitate dosing and to avoid untoward sedation at 5pm. She just started on carnitine yesterday. I'm not feeling drunk or slow anymore, but I still feel mentally off. Not like before (earlier in the week). I definitely feel today is better and maybe yesterday was even a little better than the day before. I still got a little of that feeling I dont like. Like makes me get frustrated, I'm more likely to get those (suicidal) thoughts .She does think it is her mood that is lower, but just doesn't feel right... but the body and head stuff, yea that's better . She does notice feeling a little mentally more clear this morning and reminded that she took an Adderall 5 mg this morning. Will plan to keep her current meds at the half doses of their previous doses she came in at. Seroquel XR (which was at 800 mg/d) was immediately knocked down to 200 mg and brought back up to 400 mg/d now in split dose 150/250 to avoid provoking laryngeal dystonia. [place] also only on half the amount she was on at admission, at 300 mg BID (previously was 600 mg BID). Given carnitine level is borderline deficiency, will continue supplementation and instead of restarting Depakote, will trial Vraylar to target Bipolar depression, also tendency toward emotional dysregulation/mixed symptoms. If tolerated, we may be able to further lower Li given potential for ongoing risks if NDI remains only partially treated (dehydration, electrolyte imbalances, kidney damage) Urine osmolality from yesterday 06/26 appears to have improved, better able to concentrate urine with lower dose of lithium. She also shares concerns about being able to manage all her medications on her own, and I remind her of plan to transition her off the tiny dosing of risperidone TID to Vraylar once daily dosing if tolerated in the morning-midday to concurrent scheduling with Seroquel at night. I plan to reach out to her PCP next week to discuss these medical issues, and defer further management, aside from the eventual plan to discontinue lithium in the upcoming weeks as an outpatient. Medication Compliance: Yes Side effects from medications: Yes (resolving) Attending Groups: Yes Review of Systems Acute medical concerns: No Mental Status Exam Mental Status Exam Narrative: Alert, oriented, cooperative. Normal gait. Eye contact good. Mood anxious, affect anxious, brighter, labile. Speech normal, no further slurring. Thought process scattered but coherent. Thought content related to stressors, executive dysfunction, distractible, helplessness, transient intrusive SI, denies urge or plan. Future-oriented. Transient helplessness, limited frustration tolerance, continued executive dysfunction and attentional deficits. Denies thoughts to harm self or others.? No aggressive ideation or HI. No paranoia or delusional content elicited. Denies any AH, VH, TH. Insight and judgment fair but adequate. Diagnostics Vital Signs (24Hr): BMI result Body Mass Index 30.9 Assessment & Plan Assessment & Plan (1) Bipolar 2 disorder: Status: Acute Code(s): F31.81 - Bipolar II disorder (2) Other mixed anxiety disorders: Status: Acute Code(s): F41.3 - Other mixed anxiety disorders (3) Cognitive attention deficit: Status: Acute Code(s): R41.840 - Attention and concentration deficit Assessment and Plan: highly likely ADHD (4) Urinary incontinence, nocturnal enuresis: Status: Inactive Code(s): N39.44 - Nocturnal enuresis (5) Acute dystonic reaction due to drugs: Status: Acute Code(s): G24.02 - Drug induced acute dystonia (6) PMDD (premenstrual dysphoric disorder): Status: Acute Code(s): F32.81 - Premenstrual dysphoric disorder (7) Heavy menstrual bleeding: Status: Acute Code(s): N92.0 - Excessive and frequent menstruation with regular cycle (8) Diabetes insipidus, nephrogenic: Status: Acute Code(s): N25.1 - Nephrogenic diabetes insipidus Plan continue PHP continue Adderall 5 mg qam continue Wellbutrin SR 100 mg qam started on guanfacine ER 1 mg BID (06/26) consider increasing AM dose if increasing WB or Add propranolol discontinued start to taper down to risperidone 0.25 mg QAM and will continue 0.25 mg PRN agitation (plan to transition to Vraylar) may consider cont risperidone on PRN basis for menses start Vraylar 1.5 mg daily (midday) x 2 days, the will increase to 3 mg/d as tolerated continue Lithim 300 mg BID (since 06/24) continue Seroquel XR 400/d (split 150 mg@5pm / 250 mg@8pm) may consider splitting 100 mg qd/300 mg qhs continue benztropine 0.5 mg BID (QPM@5pm/QHS@8pm) continue diazepam 2.5 mg QHS (plan to order as 2 mg tablet next month) continue lorazepam 0.5 mg QPM@5pm continue lorazepam 0.5 mg BID prn anxiety continue progesterone 100 mg daily (day 07-13) continue Dinwwr-I-Ybllskddt 500 mg/d discontinued: gabapentin (overly sedating, long lasting), depakote (poorly tolerated, possibly due to carnitine deficiency), propranolol Will order lab work for the AM - check lytes, ammonia, may consider AI f/u (d/t elevated COURTNEY (presumably related to psoriasis) consider checking ?anti DS AbD Dx: nephrogenic diabetes insipidus - urine osmolality improved with reduction in lithium, may need to maintain at half dose of Li for Dx: laryngeal dystonic reaction - d/t Seroquel 800mg. Resolved with reduction of dose <400 and split dosing between 5 PM and HS continue to monitor Patient educated on: diagnosis, medication risk/benefits and medical condition Informed Consent: understands Reason for contiued partial hosp. stay Substantial Risk for: inability to function, rapid decompensation and med/psych decompensation Certification I certify that partial hospital treatment is medically necessary due to the symptoms and problems resulting from the patient's mental illness and the failure to treat the patient at the partial hospital level of care would likely result in the patient requiring inpatient psychiatric care which could not be prevented at a less intensive level of care. Total time managing care of this patient today _60___ minutes. Discharge Plan Discharge Attending provider: Dee Griffin Medications: New guanfacine 1 mg tablet extended release 24 hr 1 mg PO DAILY Qty: 14 0RF lisdexamfetamine 10 mg capsule 10 mg PO DAILY Qty: 30 0RF Rx Instructions: Partial Fill upon patient request. dextroamphetamine-amphetamine [Adderall] 5 mg tablet 5 mg PO BID Qty: 20 0RF Rx Instructions: administer doses at least 4-6 hours apart; Partial Fill upon patient request. levomefolate calcium 15 mg tablet 15 mg PO DAILY Qty: 30 2RF progesterone micronized 100 mg capsule 100 mg PO QAM 21 Days Qty: 21 0RF Rx Instructions: off 7 days; repeat cycle L-Carnitine 500 mg tablet 500 mg PO BID Qty: 60 1RF Rx Instructions: must administer with a meal/food bupropion HCl 100 mg tablet sustained-release 12 hr 100 mg PO QAM Qty: 14 0RF cariprazine 1.5 mg capsule 1.5 mg PO DAILY Qty: 30 0RF Continued levothyroxine 100 mcg tablet 1 tab PO DAILY montelukast 10 mg tablet 1 tab PO DAILY memantine 14 mg capsule,sprinkle,ER 24hr 14 mg PO BEDTIME Qty: 30 0RF quetiapine 150 mg tablet extended release 24 hr 150 mg PO DAILY Qty: 30 0RF adalimumab-adbm [Cyltezo(CF) Pen] 40 mg/0.8 mL pen injector kit 40 mg subcut Q2W Changed quetiapine [Seroquel XR] 200 mg tablet extended release 24 hr 200 mg PO BEDTIME Qty: 30 0RF quetiapine 50 mg tablet extended release 24 hr 50 mg PO BEDTIME Qty: 30 0RF Rx Instructions: in morning and afternoon risperidone 0.25 mg tablet 0.25 mg PO BID Qty: 60 0RF Rx Instructions: =DOSE INCREASED since 05/30/24= benztropine 0.5 mg tablet 0.5 mg PO BID Qty: 60 0RF diazepam 5 mg tablet 10 mg PO BEDTIME PRN (Reason: dystonic reaction) Qty: 60 0RF Discontinued lithium carbonate 300 mg tablet extended release 2 tab PO BID quetiapine 400 mg tablet extended release 24 hr 2 tab PO QPM clonazepam 0.5 mg tablet 0.5 mg PO DAILY PRN (Reason: severe anxiety) 30 Days Qty: 8 0RF Rx Instructions: take 1/2 tablet twice a day as needed for anxiety Stand Alone Forms: Patient Portal Discharge page Print Language: Salvadorean
--- NOTE | 2024-06-30 13:02 | HO.PHP ---
This clinician met with the patient twice after she witnessed a fall from another patient. The patient reported that today was not a good day and reported passive SI with a plan. However, she reported to feel overwhelmed because of the med changes and refused a crisis evaluation. She indicated to have an appointment with her PCP at 1:30 pm and indicated that will be taking the rest of the day in chunks because it has been too heavy. The clinician asked about her ability to drive and she responded to be fine and indicated that will practice some breathing exercises prior to leaving.
[2024-06-30 13:30] VITALS: BP 110/82; PULSE 100
--- NOTE | 2024-07-01 23:31 | HO.PHPPROGNO ---
Subjective Subjective Date of Service: 07/01/24 Reason For Visit: bipolar,PTSD Mental Status Exam Mental Status Exam Narrative: Alert, oriented, cooperative. Normal gait. Eye contact good. Mood anxious, affect anxious, brighter, labile. Speech normal, no further slurring. Thought process scattered but coherent. Thought content related to stressors, executive dysfunction, distractible, helplessness, transient intrusive SI, denies urge or plan. Future-oriented. Transient helplessness, limited frustration tolerance, continued executive dysfunction and attentional deficits. Denies thoughts to harm self or others.? No aggressive ideation or HI. No paranoia or delusional content elicited. Denies any AH, VH, TH. Insight and judgment fair but adequate. Diagnostics Vital Signs (24Hr): BMI result Body Mass Index 30.9 Assessment & Plan Assessment & Plan (1) Bipolar 2 disorder: Status: Acute Code(s): F31.81 - Bipolar II disorder (2) Other mixed anxiety disorders: Status: Acute Code(s): F41.3 - Other mixed anxiety disorders (3) Attention-deficit hyperactivity disorder, unspecified type: Qualifiers: Attention deficit-hyperactivity disorder type: predominantly inattentive Qualified Code(s): F90.0 - Attention-deficit hyperactivity disorder, predominantly inattentive type Status: Acute Code(s): F90.9 - Attention-deficit hyperactivity disorder, unspecified type (4) PMDD (premenstrual dysphoric disorder): Status: Acute Code(s): F32.81 - Premenstrual dysphoric disorder (5) Heavy menstrual bleeding: Status: Acute Code(s): N92.0 - Excessive and frequent menstruation with regular cycle (6) Diabetes insipidus, nephrogenic: Status: Acute Code(s): N25.1 - Nephrogenic diabetes insipidus Assessment and Plan: due to long-standing lithium 1200 mg (dose reduced to 750 mg) (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 - Other diseases of vocal cords Assessment and Plan: long standing, now resolved - with lower dose of Seroquel (from 800 mg to 400 mg) Plan continue PHP started methylphenidate 10 mg ER QAM today, not noticable thus far, denies adverse effects, will increase to 20 mg tomorrow (holding Adderall IR - insurance will only cover [facility] ER formulations) increase guanfacine ER to 3 mg/day (split 2 mg/1mg) continue Vraylar 3 mg QAM (incr since 07/01) continue Redmon 300 mg QAM and 450 ER in evening continue Seroquel XR 400/d (split 100 mg@5pm / 300 mg@8pm) continue benztropine 0.5 mg BID (QPM@5pm/QHS@8pm) continue diazepam 2.5 mg QHS (plan to order as 2 mg tablet next month) continue lorazepam 0.5 mg QPM@5pm continue lorazepam 0.5 mg BID PRN anxiety maintain risperidone 0.25 mg as PRN only, for agitation (rah premenstrual) continue progesterone 100 mg daily (day -) continue Uoyjve-C-Bvmbnosxy 500 mg/d discontinued: gabapentin (overly sedating, long lasting), Depakote (poorly tolerated, possibly due to carnitine deficiency), propranolol Will order lab work for the AM - check lytes, ammonia, may consider AI f/u (d/t elevated COURTNEY (presumably related to psoriasis) consider checking ?anti DS AbD Dx: nephrogenic diabetes insipidus - urine osmolality improved with reduction in lithium, may need to maintain at half dose of Li for Dx: laryngeal dystonic reaction - d/t Seroquel 800mg. Resolved with reduction of dose <400 and split dosing between 5 PM and HS continue to monitor Certification I certify that partial hospital treatment is medically necessary due to the symptoms and problems resulting from the patient's mental illness and the failure to treat the patient at the partial hospital level of care would likely result in the patient requiring inpatient psychiatric care which could not be prevented at a less intensive level of care. Total time managing care of this patient today ____ minutes. Discharge Plan Discharge Attending provider: Dee Griffin Medications: New levomefolate calcium 15 mg tablet 15 mg PO DAILY Qty: 30 2RF L-Carnitine 500 mg tablet 500 mg PO BID Qty: 60 1RF Rx Instructions: must administer with a meal/food cariprazine 3 mg capsule 3 mg PO DAILY Qty: 30 0RF guanfacine 2 mg tablet extended release 24 hr 2 mg PO QAM Qty: 30 0RF guanfacine 1 mg tablet extended release 24 hr 1 mg PO DAILY Qty: 30 0RF Rx Instructions: at 5pm quetiapine 300 mg tablet extended release 24 hr 300 mg PO BEDTIME Qty: 30 0RF methylphenidate HCl 20 mg tablet extended release 20 mg PO QAM Qty: 30 0RF Rx Instructions: Partial Fill upon patient request. lithium carbonate 450 mg tablet extended release 450 mg PO BEDTIME Qty: 30 0RF Continued levothyroxine 100 mcg tablet 1 tab PO DAILY montelukast 10 mg tablet 1 tab PO DAILY memantine 14 mg capsule,sprinkle,ER 24hr 14 mg PO BEDTIME Qty: 30 0RF progesterone micronized 100 mg capsule 100 mg PO QAM 21 Days Qty: 21 0RF Rx Instructions: off 7 days; repeat cycle adalimumab-adbm [Cyltezo(CF) Pen] 40 mg/0.8 mL pen injector kit 40 mg subcut Q2W Changed quetiapine 50 mg tablet extended release 24 hr 100 mg PO DAILY Qty: 60 0RF Rx Instructions: at 5pm diazepam 5 mg tablet 2.5 mg PO BEDTIME Qty: 60 0RF benztropine 0.5 mg tablet 0.5 mg PO BID Qty: 60 0RF lithium carbonate 300 mg tablet extended release 300 mg PO QAM Qty: 60 0RF Discontinued lithium carbonate 300 mg tablet extended release 2 tab PO BID quetiapine 400 mg tablet extended release 24 hr 2 tab PO QPM propranolol 20 mg tablet 20 mg PO BID clonazepam 0.5 mg tablet 0.5 mg PO DAILY PRN (Reason: severe anxiety) 30 Days Qty: 8 0RF Rx Instructions: take 1/2 tablet twice a day as needed for anxiety Stand Alone Forms: Patient Portal Discharge page Print Language: Portuguese
--- NOTE | 2024-07-03 18:17 | HO.PHPPROGNO ---
Subjective Subjective Date of Service: 07/02/24 Reason For Visit: bipolar,PTSD Interim History: Patient seen for follow-up. ?You know I think I am doing better. I am feeling pretty okay today? She is relieved that we have not been making any further medication changes, anxiety is notably better managed today. Reports mood is good, feeling more emotionally in control no lability noted. ?My thinking is clearer. And I am focusing better. She appears overall less overwhelmed and scattered. She is noticing dry mouth again today, she is not sure if it is any worse today at 20 mg (vs yesterday at 10 mg) of the long-acting methylphenidate. She is also not sure if this is any better or worse compared to short-acting Adderall 5mg. However she has been able to better handle stress today and tells me she was able to help out some of her peers today who were distressed with some stressful situations which were occurring in the program today. She slept okay last night. ?sleep is still not as good as it was before (on 800 mg Seroquel) but I never want to go back to experiencing that (acute laryngeal dystonia) ever again. I can not believe I dealt with that every night all these years . She denies experiencing any similar symptoms since we reduced her dose. She continues on split dosing of the 350-400 mg of Seroquel. She has tolerated increase in Vraylar during the day to 3 mg and feels it has helped target her residual depression, lability and anxiety. She denies any intrusive SI the past 2 days. She expresses feeling cautiously optimistic that her mood will continue to improve. She did not fall asleep after 50 mg of Seroquel at 5pm and perhaps she will be able to tolerate 100 mg since she is on long-acting ADHD meds. She continues to experience nocturnal enuresis on account of NDI. She continues to drink over 100 mL of water daily, initially she thought perhaps she was less thirst after cutting lithium, but since adding stimulant medication her mouth has been dry. She is noticing her urine is slightly yellow overnight (which is a change from being completely clear). Recent urine osmolality has improved from last month (which patient was still at 1200 mg). She feels her mood is better since we reinstated some of the lithium ER with current dose at 750 mg/day. Medication Compliance: Yes Side effects from medications: No Attending Groups: Yes Review of Systems Acute medical concerns: No Mental Status Exam Mental Status Exam Narrative: Alert, oriented, cooperative. Normal gait. Eye contact good. Mood good, affect bright without tearfulness or lability. Speech normal.. No evidence of thought disorder. Thought content related to stressors, future oriented, denies any SI, urge, intention or plan. Future-oriented. Denies thoughts to harm self or others.? No aggressive ideation or HI. No paranoia or delusional content elicited. Denies any AH, VH, TH. Insight and judgment fair-good. Diagnostics Vital Signs (24Hr): BMI result Body Mass Index 30.9 Assessment & Plan Assessment & Plan (1) Bipolar 2 disorder: Status: Acute Code(s): F31.81 - Bipolar II disorder (2) Other mixed anxiety disorders: Status: Acute Code(s): F41.3 - Other mixed anxiety disorders (3) Attention-deficit hyperactivity disorder, unspecified type: Qualifiers: Attention deficit-hyperactivity disorder type: predominantly inattentive Qualified Code(s): F90.0 - Attention-deficit hyperactivity disorder, predominantly inattentive type Status: Acute Code(s): F90.9 - Attention-deficit hyperactivity disorder, unspecified type (4) PMDD (premenstrual dysphoric disorder): Status: Acute Code(s): F32.81 - Premenstrual dysphoric disorder (5) Heavy menstrual bleeding: Status: Acute Code(s): N92.0 - Excessive and frequent menstruation with regular cycle (6) Diabetes insipidus, nephrogenic: Status: Acute Code(s): N25.1 - Nephrogenic diabetes insipidus Assessment and Plan: due to long-standing lithium 1200 mg (dose reduced to 750 mg) (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 - Other diseases of vocal cords Assessment and Plan: long standing, now resolved - with lower dose of Seroquel (from 800 mg to 400 mg) Plan continue PHP continue methylphenidate 20 mg ER QAM continue guanfacine ER 3 mg/day (split 2 mg in AM/ 1mg@5pm) continue Vraylar 3 mg QAM (incr since 07/01) continue Betances 300 mg QAM and 450 ER in evening continue Seroquel XR 400/d (split 100 mg@5pm / 300 mg@8pm) continue benztropine 0.5 mg BID (QPM@5pm/QHS@8pm) continue diazepam 2.5 mg QHS (plan to order as 2 mg tablet next month) continue lorazepam 0.5 mg QPM@5pm continue lorazepam 0.5 mg BID PRN anxiety maintain risperidone 0.25 mg as PRN only, for agitation (rah premenstrual) continue progesterone 100 mg daily (Days 5-25 of menstrual cycle) continue Xtqzvo-R-Icocwyzhb 500 mg/d discontinued: gabapentin (overly sedating, long lasting), Depakote (poorly tolerated, possibly due to carnitine deficiency), propranolol, Adderall (insurance would not cover ER amphetamines) Lab results, EKG reviewed with patient Dx: nephrogenic diabetes insipidus - long standing maintenance of Li at 1200 mg, urine osmolality improved with dose reduced to 500 mg however patient did not tolerate, more emotionally stable now at 750 mg in addition to Vraylar 3 mg added Dx: laryngeal dystonic reaction - d/t Seroquel 800mg. Resolved with reduction of dose <400 and split dosing between 5 PM and HS anticipate discharge at end of week or Sunday continue to monitor Patient educated on: diagnosis, medication risk/benefits and medical condition Informed Consent: understands Reason for contiued partial hosp. stay Substantial Risk for: med/psych decompensation Certification I certify that partial hospital treatment is medically necessary due to the symptoms and problems resulting from the patient's mental illness and the failure to treat the patient at the partial hospital level of care would likely result in the patient requiring inpatient psychiatric care which could not be prevented at a less intensive level of care. Total time managing care of this patient today _40___ minutes. Discharge Plan Discharge Attending provider: Dee Griffin Medications: New levomefolate calcium 15 mg tablet 15 mg PO DAILY Qty: 30 2RF L-Carnitine 500 mg tablet 500 mg PO BID Qty: 60 1RF Rx Instructions: must administer with a meal/food cariprazine 3 mg capsule 3 mg PO DAILY Qty: 30 0RF guanfacine 2 mg tablet extended release 24 hr 2 mg PO QAM Qty: 30 0RF guanfacine 1 mg tablet extended release 24 hr 1 mg PO DAILY Qty: 30 0RF Rx Instructions: at 5pm quetiapine 300 mg tablet extended release 24 hr 300 mg PO BEDTIME Qty: 30 0RF methylphenidate HCl 20 mg tablet extended release 20 mg PO QAM Qty: 30 0RF Rx Instructions: Partial Fill upon patient request. lithium carbonate 450 mg tablet extended release 450 mg PO BEDTIME Qty: 30 0RF Continued levothyroxine 100 mcg tablet 1 tab PO DAILY montelukast 10 mg tablet 1 tab PO DAILY memantine 14 mg capsule,sprinkle,ER 24hr 14 mg PO BEDTIME Qty: 30 0RF progesterone micronized 100 mg capsule 100 mg PO QAM 21 Days Qty: 21 0RF Rx Instructions: off 7 days; repeat cycle adalimumab-adbm [Cyltezo(CF) Pen] 40 mg/0.8 mL pen injector kit 40 mg subcut Q2W Changed quetiapine 50 mg tablet extended release 24 hr 100 mg PO DAILY Qty: 60 0RF Rx Instructions: at 5pm diazepam 5 mg tablet 2.5 mg PO BEDTIME Qty: 60 0RF benztropine 0.5 mg tablet 0.5 mg PO BID Qty: 60 0RF lithium carbonate 300 mg tablet extended release 300 mg PO QAM Qty: 60 0RF Discontinued lithium carbonate 300 mg tablet extended release 2 tab PO BID quetiapine 400 mg tablet extended release 24 hr 2 tab PO QPM propranolol 20 mg tablet 20 mg PO BID clonazepam 0.5 mg tablet 0.5 mg PO DAILY PRN (Reason: severe anxiety) 30 Days Qty: 8 0RF Rx Instructions: take 1/2 tablet twice a day as needed for anxiety Stand Alone Forms: Patient Portal Discharge page Print Language: Nigerien
--- NOTE | 2024-07-04 15:07 | PC.NURSE ---
Patient discharged today. Stated she is feeling ready for discharge. She denied SI, no HI. Feels better compared to when she first started the program.
--- NOTE | 2024-07-07 16:12 | PC.NURSE ---
Dr. Griffin is aware of patient lab results including CL 111, GAP 9, Bun 18, Creat 1.09, egfr 54, EOS auto 7.0, Eos Abs Auto 0.6, TSH 5.51, PTH 89.2, T3 51, prolactin 29.7, Homocysteine 20.0, COURTNEY screen Positive, COURTNEY titer 1:640, Urine Osmolarity 208, Creat 1.13, Ur Osmo 388, Copeptin 29.8, Ur Osmo random 320. EKG NSR possible L atrial enlargement, non specific T wasve abnormality.
== END 2024-07-04 23:59 | disposition home or self-care (01) ==
LOC: HO.PHPA 09:45
PROVIDERS: Visit Provider Psychiatry & Neurology Psychiatry
DX: F31.81 Bipolar II disorder (principal); F41.3 Other mixed anxiety disorders; F90.0 Attention-deficit hyperactivity disorder, predominantly inattentive type; F32.81 Premenstrual dysphoric disorder; N92.0 Excessive and frequent menstruation with regular cycle; N25.1 Nephrogenic diabetes insipidus; J38.3 Other diseases of vocal cords; N39.44 Nocturnal enuresis; G24.02 Drug induced acute dystonia; Z79.899 Other long term (current) drug therapy
CPT/HCPCS: 90791; 90853

== ENCOUNTER → 2024-08-07 09:10 | Outpatient (REF) | payer MEDICARE, MEDICAID, SELFPAY ==
--- NOTE | 2024-08-07 09:16 | ECG_ITS ---
Test Reason : CHECK QT Blood Pressure : */* mmHG Vent. Rate : 83 BPM Atrial Rate : 83 BPM P-R Int : 130 ms QRS Dur : 84 ms QT Int : 378 ms P-R-T Axes : 59 64 55 degrees QTcB Int : 444 ms Normal sinus rhythm Normal ECG When compared with ECG of 22-May-2024 08:18, Nonspecific T wave abnormality no longer evident in Inferior leads T wave inversion less evident in Anterior leads Referred By: Dee Griffin Electronically Signed By: Vivek Burgos
--- OUTSIDE RECORDS SUMMARY | 2024-08-07 09:47 | XMS_ITS | Data Portability ---
Author Organization [facility], Main Office Address [address] [place] [address] Care Team Providers Care Wheel Alignment Technician Name Role Phone FARHAT MARION Hvac Service Manager [phone] ABRAHAM WALL Psychiatrist JACK TOBIN Gis Physical Scientist PARAS CESAR Stocking Inspector RENUKA RAMÍREZ Primary Care Provider [facility] Window Shade Ring Sewer [facility] Clinical Psychologist [phone] Assessment No assessment recorded. Plan of Treatment Reminders Order Date Submit Date Provider Last Modified By Organization Details Last Modified Time Details Appointments FOLLO W UP 1 2024 02:45P M RENUKA RAMÍREZ MD Not available Not available Not available Lab lipid panel , serum 2024 025 NATHAN [facility], [address] [place], [address], 06/30/2024 13:57:32 BMP, serum or plasm a 2024 025 NATHAN [facility] (Centralized Electronic Ordering - All Locations), Patient Can Go To The Location Of Their Choice, [id number] 03/24/2024 15:01:[address] refer ral 2024 025 [email or web address] Not available 06/30/2024 14:03:35 Procedures colon oscop y scree eric (PROC ) 2024 025 [facility], [address], [place], [address], 07/03/2024 15:35:00 cerum en remov al (PROC ) 2024 025 NATHAN In-Office Order, Internal Use Only DO Not Attach Compendium DO Not Attach Compendium, Do Not Delete/merge, [id number] 04/15/2024 14:54:53 Surgeries None recor ded. Imaging None recor ded. Medication Orders None recor ded. Patient TargetsNo targets recorded. Patient Instructions Encounter Date Encounter Id Patient Instructions Last Modified By Organization Details Last Modified Time 01/01/2024 [id number] cellulitis: care instructions Not available 01/01/2024 09:59:50 At [facility] follow up visit, all current and discharge medications (OTC, herbal therapies, supplements) reviewed and reconciled with patient and or caregiver, including potential side effects, drug interactions, instructions, and the consequences of not taking medication. Reviewed potential barriers to medication adherence, such as side effects from medication or cost of medication. [email or web address] Not available 01/01/2024 09:32:29 03/24/2024 [id number] hypothyroidism: care instructions Not available 03/24/2024 15:01:04 acute kidney injury: care instructions Not available 03/24/2024 15:01:04 06/30/2024 [id number] hypothyroidism: care instructions Not available 06/30/2024 13:57:29 acute kidney injury: care instructions Not available 06/30/2024 13:57:29 Reason for Referral Program Planner Referral for Sc reening for malignant neoplasm of cervix Referring Physician: Renuka Ramírez, Family Medicine, Encounter Date: 06/30/2024 Results Created Date Observation Date Name Description Value Unit Range Abnormal Flag Note LastModifiedBy Organization Detail LastModifiedTime 01/21/20 24 01/21/2024 TSH+F REE T4 TSH 0.872 uIU/m L 0.450- 4.500 normal Not Available [facility] ([facility]) [address], [place], [address], 01/22/2024 06:07:47 01/21/20 24 01/21/2024 TSH+F REE T4 T4,free(dire ct) 1.27 NG/dL 0.82-1 .77 normal Not Available [facility] ([facility]) [address] [facility] [place], [address], 01/22/2024 06:07:47 01/21/20 24 01/21/2024 BASIC METAB OLIC PANEL (8) glucose 107 mg/dL 70-99 above high normal Not Available [facility] ([facility]) [address] [place], [address], 01/22/2024 06:07:48 01/21/20 24 01/21/2024 BASIC METAB OLIC PANEL (8) BUN 12 mg/dL 6-24 normal Not Available [facility] ([facility]) [address] [place], [address], 01/22/2024 06:07:48 01/21/20 24 01/21/2024 BASIC METAB OLIC PANEL (8) creatinine 1.19 mg/dL 0.57-1 .00 above high normal Not Available [facility] ([facility]) [address] [place], [address], 01/22/2024 06:07:48 01/21/20 24 01/21/2024 BASIC METAB OLIC PANEL (8) eGFR 58 mL/mi n/1.7 3 >59 below low normal Not Available [facility] ([facility]) [address] [place], [address], 01/22/2024 06:07:48 01/21/20 24 01/21/2024 BASIC METAB OLIC PANEL (8) BUN/creatini ne ratio 10 9-23 normal Not Available [facility] ([facility]) [address] [place], [address], 01/22/2024 06:07:48 01/21/20 24 01/21/2024 BASIC METAB OLIC PANEL (8) sodium 141 mmol/ L 134-14 4 normal Not Available [facility] ([facility]) [address] [facility], [address], 01/22/2024 06:07:48 01/21/20 24 01/21/2024 BASIC METAB OLIC PANEL (8) potassium 4.3 mmol/ L 3.5-5. 2 normal Not Available [facility] ([facility]) [address] [facility] [place], [address], 01/22/2024 06:07:48 01/21/20 24 01/21/2024 BASIC METAB OLIC PANEL (8) chloride 103 mmol/ L 96-106 normal Not Available [facility] ([facility]) [address] [facility], [address], 01/22/2024 06:07:48 01/21/20 24 01/21/2024 BASIC METAB OLIC PANEL (8) carbon dioxide, total 22 mmol/ L 20-29 normal Not Available [facility] ([facility]) [address] [facility] [place], [address], 01/22/2024 06:07:48 01/21/20 24 01/21/2024 BASIC METAB OLIC PANEL (8) calcium 9.6 mg/dL 8.7-10 .2 normal Not Available [facility] ([facility]) [address] [facility], [address], 01/22/2024 06:07:48 01/21/20 24 01/21/2024 VITAM IN B12 AND FOLAT E vitamin B12 284 pg/mL 232-12 45 normal Not Available [facility] ([facility]) [address] [facility], [address], 01/22/2024 06:07:49 01/21/20 24 01/22/2024 VITAM IN B12 AND FOLAT E folate (folic acid), serum 4.6 NG/mL >3.0 normal A serum folat e mary ntrat ion of less than 3.1 ng/mL is consi dered to repre sent clini rod defic iency . Not Available [facility] ([facility]) [address], [place], [address], 01/22/2024 06:07:49 04/15/19 25 04/15/2024 cerum en remov al (PROC ) done by Judie Not Available In-Office Order Internal Use Only DO Not Attach Compendium DO Not Attach Compendium, Do Not Delete/merge, [id number] 04/15/2024 14:21:49 01/04/20 24 01/02/2024 MRI, brain , w/o contr ast No observ ation record ed. [facility] [address], [place], [address], 01/06/2024 16:17:03 05/16/19 25 05/15/2024 MAMMO , scree eric, digit al, bilat eral No observ ation record ed. [facility] [address], [place], [address], 05/15/2024 16:37:09 05/16/19 25 05/15/2024 MAMMO , [...] Lay letter mailed to natalie petersen WSN: [id number] Orderi ng Physic china: Steven Bender Dictat ed By: Naida Rodrigues MD, I Dictat ed Date/T don: 4:22 pm Review ed By: Naida Rodrigues MD, I Signed By: Nadia Rodrigues MD, I Signed Date/T don: 4:22 pm Transc ribed By: CSB Transc riptio n Date/T don: 4:20 pm Birads : Natalie petersen Class: Outpat ient [email or web address] [facility] (Outpt Imaging) [address] [place], [address], 05/16/2024 12:53:29 06/12/19 25 06/11/2024 mm digit [...] Lay letter mailed to natalie petersen WSN: [id number] Orderi ng Physic china: Steven Bender ie Dictat ed By: Marie Landaverde MD Dictat ed Date/T don: 10:51 am Review ed By: Marie Landaverde MD Signed By: Marie Landaverde MD Signed Date/T don: 10:51 am Transc ribed By: CSB Transc riptio n Date/T don: 10:41 am Birads : Natalie petersen Class: Outpat ient [facility] (Outpt Imaging) [address] [place] [address], [address], 06/11/2024 17:26:30 07/09/1905/22/2024 elect shannan diogr am No observ ation record ed. Not Available 07/08 13:03:22 Result Notes Documentation Provider Name and Address Organization Details Recorded Time Mammo, Screening, Digital, Bilateral : PROCEDURE: MM Digital Mammo Screening INDICATION: Screening for breast cancer. No known palpable abnormalities. COMPARISON: [facility] and [facility] dating back to 07/25/2021. TECHNIQUE: Full-field digital CC and MLO 3D tomosynthesis images of both breasts were acquired. Computer-aided detection (CAD) was utilized in the interpretation of this study. DENSITY: The breast tissue is heterogeneously dense, which may obscure small masses. FINDINGS: Left breast demonstrates a 1 view asymmetry on CC projection slightly lateral the mid breast about 6 cm from nipple . 3-D spot cc and a full 90 degree view are recommended with ultrasound to follow if a lesion persists. No suspicious findings are seen in the right breast. IMPRESSION: Additional imaging recommended. We will recall the patient. RECOMMENDATION: Diagnostic 3D tomosynthesis of the left breast with scheduled ultrasound BI-RADS: 0 Incomplete - Need Additional Imaging Evaluation. Lay letter mailed to patient WSN: [id number] Ordering Physician: Renuka Ramírez Dictated By: Naida Rodrigues MD, I Dictated Date/Time: 05/15/24 4:22 pm Reviewed By: Naida Rodrigues MD, I Signed By: Naida Rodrigues MD, I Signed Date/Time: 05/15/24 4:22 pm Transcribed By: CSBryson Remnant Sorter Date/Time: 05/15/24 4:20 pm Birads: Patient Class: Outpatient Katharina Alvarez alo [facility] 05/16/2024 12:53:29 Problems Name Problem SNOMED Code Status Onset Date Resolution Date Notes Provider Name and Address Organization Details Recorded Time Abdomina l pain 34000831 Completed 201109/02/2013 RECORDED 02/19/20 12 1:39PM BY SHI SKAGGS MA, ANNOTATI ON/ADDEN DUM [facility] 7 15:02:04 Acute pharyngi tis [id number] Completed 200709/02/2013 IMPRESSI ON: NEG QUICK STREP, SEND CX; RECORDED 01/09/20 08 12:57PM BY MELITON MATHEWS ON/ADDEN DUM Not Available [facility] 4 14:53:44 Acute non-supp urative serous otitis media 310177240 Completed 201109/02/2013 IMPRESSI ON: RESOLVED INFECTIO N WITH TRACI. HASTEN RESOLUTI ON WITH FLONASE. REASSURE D INFECTIO N RESOLVED .; RECORDED 02/19/20 12 1:39PM BY SHI SKAGGS MA, ANNOTATI ON/ADDEN DUM Not Available [facility] 4 14:53:44 Anemia 806907896 Completed 201303/30/2016 RECORDED 06/21/19 14 2:38PM BY SHI SKAGGS MA, OFFICE VISIT Idalmis prajapati [facility] 7 16:11:49 Chronic alcoholi sm in [facility] 837162101 Completed 201109/02/2013 IMPRESSI ON: NOT DRINKING , PIKE BEEN IN [facility], YEARS AGO ALCOHOL ABUSE WAS AN ISSUE AND COMPLICA DANICA HER MENTAL HEALTH TREATMEN T; RECORDED 02/19/20 12 1:40PM BY SHI SKAGGS MA, ANNOTATI ON/ADDEN DUM Not Available [facility] 4 14:53:44 Alopecia 43618260 Completed 201303/30/2016 RECORDED 06/21/19 14 2:38PM BY SHI SKGAGS MA, OFFICE VISIT Idalmis prajapati [facility] 7 16:12:02 Anxiety state 069323371 Active 2013 FRIEDA Goyal, [facility] 8 15:03:46 Patient status finding 913815841 Completed 201209/02/2013 RECORDED 06/06/19 13 11:40AM BY NYDIA CHRISTIANSEN MA, MELITON ON/ADDEN DUM FRIEDA French, [facility] 7 15:01:47 Asthma 510152354 Completed 201310/02/2019 Idalmis prajapati [facility] 0 10:11:13 Acute asthma 787581765 Completed 201109/02/2013 RECORDED 02/19/20 12 1:39PM BY SHI SKAGGS MA, ANNOTATI ON/ADDEN DUM Not Available [facility] 4 14:53:45 Bipolar I disorder 911146645 Active 2013 FRIEDA Goyal, [facility] 8 15:03:43 Backache 045792525 Completed 201209/02/2013 IMPRESSI ON: CALL IN 1 WEEK IF NOT IMPROVIN G. WARNED OF DROWSINE SS WITH VICODIN AND FLEXERIL ; RECORDED 09/25/19 13 4:19PM BY NYDIA CHRISTIANSEN MA, ANNOTATI ON/ADDEN DUM Idalmis prajapati [facility] 7 16:11:29 Clostrid ioides difficil e infectio n 575039382 Completed 201109/02/2013 IMPRESSI ON: RESOLVED WITH TX, PT TO KEEP ON PROBIOTI C FOR A FEW MORE WEEKS TO RESOTRE KERMIT TO NORMAL.; RECORDED 02/19/20 12 1:39PM BY SHI SKAGGS MA, ANNOTATI ON/ADDEN DUM Not Available [facility] 4 14:53:45 Candidal vulvovag initis 97977554 Completed 200809/02/2013 RECORDED 06/19/19 09 10:27AM BY KIKA FRENCHATI ON/ADDEN DUM Not Available [facility] 4 14:53:45 Cellulit is and abscess of neck 394826874 Completed 201109/02/2013 RECORDED 02/19/20 12 1:39PM BY SHI SKAGGS MA, ANNOTATI ON/ADDEN DUM Not Available [facility] 4 14:53:45 Screenin g for malignan t neoplasm of cervix Completed 201209/02/2013 RECORDED 09/25/19 13 4:19PM BY NYDIA CHRISTIANSEN MA, ANNOTATI ON/ADDEN DUM Not Available [facility] 4 14:53:45 Disorder of coccyx 25742885 Completed 201303/30/2016 IMPRESSI ON: PAIN FORM FALL NO XRAY NEEDED, TIME AND MOTRIN; RECORDED 06/21/19 14 2:38PM BY SHI SKAGGS MA, OFFICE VISIT Idalmis prajapati [place] - [facility] 7 16:12:05 Colitis, enteriti s and gastroen teritis presumed infectio us 713680630 Completed 201109/02/2013 RECORDED 02/19/20 12 1:39PM BY SHI SKAGGS MA, ANNOTATI ON/ADDEN DUM Not Available [facility] 4 14:53:45 Conjunct ivitis 3390498 Completed 201109/02/2013 RECORDED 02/19/20 12 1:39PM BY SHI SKAGGS MA, ANNOTATI ON/ADDEN DUM Not Available [facility] 4 14:53:45 Seborrhe ic dermatit is 55077135 Completed 201109/02/2013 IMPRESSI ON: WITH DRY SCALP. PT REASSURE D. SHE WILL CHANGE SHAMPOOS (TRIAL OF T-GEL NEUTRAGE NA), WASH HAIR EVERY OTHER DAY. IF NEEDED SHE WILL USE PO ANTIHIST AMINES. PTS QUESTION S ANSWERED , FEELS BETTER ABOUT SXS. TO CONTACT OFFICE PRN.; RECORDED 02/19/20 12 1:39PM BY SHI SKAGGS MA, KIKAATI ON/ADDEN DUM Not Available [facility] 4 14:53:45 History of depressi on 907916008 Completed 201309/02/2013 RECORDED 06/21/19 14 2:38PM BY SHI SKAGGS MA, KIKAATI ON/ADDEN DUM Not Available [facility] 4 14:53:45 Diarrhea 04915590 Completed 201209/02/2013 IMPRESSI ON: NEW PROBLEM, PT WILL SEE DR MARION FOR EVAL,; RECORDED 01/11/20 13 10:05AM BY SHI SKAGGS MA, ANNOTATI ON/ADDEN DUM Not Available [facility] 4 14:53:45 Hearing loss 32654543 Completed 201109/02/2013 RECORDED 02/19/20 12 1:39PM BY SHI SKAGGS MA, ANNOTATI ON/ADDEN DUM Not Available [facility] 4 14:53:45 Dysfunct ional uterine bleeding Completed 201109/02/2013 RECORDED 02/19/20 12 1:39PM BY SHI SKAGGS MA, KIKAATI ON/ADDEN DUM Brenadn Duarte-FRIEDA Live [place] [facility] 8 15:03:51 Dysmenor rocael 001365000 Completed 201209/02/2013 IMPRESSI ON: NL EXAM PAP AND CXS TODAY; RECORDED 09/25/19 13 4:19PM BY NYDIA CHRISTIANSEN MA, ANNOTATI ON/ADDEN DUM Not Available [facility] 4 14:53:46 Dysuria 18443426 Completed 201109/02/2013 RECORDED 02/19/20 12 1:39PM BY SHI SKAGGS MA, ANNOTATI ON/ADDEN DUM Not Available [facility] 4 14:53:46 Disorder of cardiova scular system 02698550 Completed 201109/02/2013 RECORDED 02/19/20 12 1:39PM BY SHI SKAGGS MA, ANNOTATI ON/ADDEN DUM Not Available [facility] 4 14:53:46 Fall on or from stairs or steps Completed 201209/02/2013 RECORDED 09/25/19 13 4:19PM BY NYDIA CHRISTIANSEN MA, ANNOTATI ON/ADDEN DUM Not Available [facility] 4 14:53:46 Family history of breast cancer 863200981 Completed 201109/02/2013 IMPRESSI ON: REVIEWED RE[facility], TESTING NOT THOUGHT TO BE NECESSAR Y, WILL START MAMMO AT 39 AND PT TO LEARN TO DO SELF BREAST EXAM; RECORDED 02/19/20 12 1:39PM BY SHI SKAGGS MA, ANNOTATI ON/ADDEN DUM Not Available [facility] 4 14:53:46 Influenz a vaccine needed 08831054105 06 Completed 201209/02/2013 RECORDED 10/26/19 13 2:51PM BY JUDIE BOTELLO, OFFICE VISIT Not Available [facility] 4 14:53:46 Closed fracture of radius 676695164 Completed 201109/02/2013 RECORDED 02/19/20 12 1:39PM BY SHI SKAGGS MA, ANNOTATI ON/ADDEN DUM Not Available [facility] 4 14:53:46 Adult health examinat ion Completed 201309/02/2013 IMPRESSI ON: NOT DUE FOR A PAP, BREAST EXAM TODAY, INCREASE EXERCISE ; RECORDED 06/21/19 14 2:37PM BY SHI SKAGGS MA, ANNOTATI ON/ADDEN DUM Not Available [facility] 4 14:53:46 General examinat ion of patient Completed 200809/02/2013 IMPRESSI ON: PAP TODAY, GOING BACK TO SCHOOL; RECORDED 06/19/19 09 10:27AM BY MELITON FRENCH ON/ADDEN DUM Not Available [facility] 4 14:53:46 Well child 189439921 Completed 201109/02/2013 RECORDED 02/19/20 12 1:39PM BY SHI SKAGGS MA, ANNOTATI ON/ADDEN DUM Not Available [facility] 4 14:53:46 Pain of hip region 18559817 Completed 201303/30/2016 IMPRESSI ON: FELL 10 DAYS AGO, PAIN IN BILATERA L HIPS, WILL GET XRAY TO RULE OUT FRACTURE THOUGH UNLIKELY MOTRINA ND REST; RECORDED 06/21/19 14 2:38PM BY SHI SKAGGS MA, OFFICE VISIT [facility] 7 16:11:59 Impacted cerumen 99752711 Completed 201303/29/2016 IMPRESSI ON: EAR LAVAGE PERFORME D, CERUMEN REMOVED; RECORDED 06/21/19 14 4:08PM BY AMARILIS LE, OFFICE VISIT FRIEDA French, [facility] 7 15:01:56 Ingrowin g nail 160807595 Completed 201109/02/2013 IMPRESSI ON: SOAK FOOT WARM WATER MULTIPLE TIMES A DAY PODIATRY APPT IN CASE NEEDS PARTIAL NAIL REMOVAL. SHE WILL CANCEL APPT IF BETTER.; RECORDED 02/19/20 12 1:39PM BY SHI SKAGGS MA, MELITON ON/ADDEN DUM Not Available [facility] 4 14:53:47 Insomnia 065585793 Completed 201303/30/2016 IMPRESSI ON: BETTER MEDS HELPING; RECORDED 06/21/19 14 2:38PM BY SHI SKAGGS MA, OFFICE VISIT Idalmis prajapati [facility] 7 16:11:37 Low back pain 141298723 Completed 201309/02/2013 IMPRESSI ON: FOR MONTHS, HX OF A FEW FALLS, PT TO SET UP PT ORDER TO PT TODAY; RECORDED 06/21/19 14 2:38PM BY SHI SKAGGS MA, MELITON ON/ADDEN DUM FRIEDA French, [facility] 7 15:02:14 Lymphade nopathy 47779664 Completed 201109/02/2013 IMPRESSI ON: BILAT, SCALP WITH SKIN LESION CAUSING LEFT OCCIPITA L NODE INVOLVEM ENT; RECORDED 02/19/20 12 1:39PM BY SHI SKAGGS MA, MELITON ON/ADDEN DUM Not Available [facility] 4 14:53:47 Single major depressi ve episode Completed 201311/23/2016 IMPRESSI ON: ON MEDS BUT DEPRESSI ON IS ACTIVE, CONTINUE MEDS AND PSYCHIAT RY AND COUNSELI NG VISITS; RECORDED 06/21/19 14 2:38PM BY SHI SKAGGS MA, OFFICE VISIT Idalmis prajapati, [facility] 7 13:39:20 Malaise and fatigue 694298098 Completed 201109/02/2013 IMPRESSI ON: ON MEDS BY PSYCHIAT RIST AND IN COUNSELI NG WEEKLY; RECORDED 02/19/20 12 1:40PM BY SHI SKAGGS MA, MELITON ON/ADDEN DUM Not Available [facility] 4 14:53:47 Blisters of multiple sites 085867068 Completed 201109/02/2013 RECORDED 02/19/20 12 1:39PM BY SHI SKAGGS MA, MELITON ON/ADDEN DUM Not Available [facility] 4 14:53:47 Administ ration of bacteria l and viral vaccine Completed 200709/02/2013 RECORDED 01/09/20 08 12:58PM BY DEBBI COCHRAN, OFFICE VISIT Not Available [facility] 4 14:53:47 Neoplasm of uncertai n behavior of skin 12816610 Completed 201303/30/2016 IMPRESSI ON: NODULE IN EAR WITH TELENGIE CTASIA CONCERNI NG FOR MALIGNAN CY. ENT TO FURTHER ASSESS; RECORDED 06/21/19 14 4:06PM BY AMARILIS LE, OFFICE VISIT Idalmis prajapati [facility] 7 16:12:10 Patient status finding [id number] Completed 201303/29/2016 RECORDED 06/21/19 14 2:38PM BY SHI SKAGGS MA, OFFICE VISIT FRIEDA French, [facility] 7 15:01:47 Herpetic gingivos tomatiti s 33886727 Completed 201109/02/2013 IMPRESSI ON: TX WITH DENAVIR; RECORDED 02/19/20 12 1:39PM BY SHI SKAGGS MA, ANNOTATI ON/ADDEN DUM Not Available [facility] 4 14:53:47 Insomnia 294418387 Completed 201109/02/2013 RECORDED 02/19/20 12 1:39PM BY SHI SKAGGS MA, ANNOTATI ON/ADDEN DUM Idalmis prajapati [facility] 7 16:11:37 Otalgia 00465641 Completed 201109/02/2013 IMPRESSI ON: X 3 DAYS, NO INFECTIO N, SUSPECT JAW JOINT INFLAMMA TION; RECORDED 02/19/20 12 1:40PM BY SHI SKAGGS MA, ANNOTATI ON/ADDEN DUM Not Available [facility] 4 14:53:48 Otitis media 86802752 Completed 201303/29/2016 IMPRESSI ON: UNCLEAR IF REALLY INFECTED . SHE WILL DO FLONASE AND MUCINEX- D FOR 2 DAYS. IF NOT BETTER, SHE WILL START ABX; RECORDED 06/21/19 14 4:08PM BY AMARILIS LE, OFFICE VISIT FRIEDA French, [facility] 7 15:02:45 Otitis media 95426240 Completed 201109/02/2013 IMPRESSI ON: RESOLVED OM; RECORDED 02/19/20 12 1:39PM BY SHI SKAGGS MA, ANNOTATI ON/ADDEN DUM FRIEDA French, [facility] 7 15:02:45 Pneumoni a 409322300 Completed 201109/02/2013 IMPRESSI ON: IMPROVED ON LEVAQUIN , PREDNISO NE AND INHALERS IN PT WITH ASTHMA, WILL GET REPEAT CXT [facility] IN A WEEK,; RECORDED 02/19/20 12 1:40PM BY SHI SKAGGS MA, ANNOTATI ON/ADDEN DUM Not Available [facility] 4 14:53:48 Secondar y polycyth emia 16812912 Completed 201109/02/2013 IMPRESSI ON: PT SEEN YEST FOR ATYPICAL ECCHYMOT IC LESIONS. LABS DONE AND HGB TRENDING UP. TO HEM/ONC FOR FURTHER ASSESSME NT. NOT A SMOKER. CASE DISCUSSE D WITH DR. AARON Ramsay; RECORDED 02/19/20 12 1:39PM BY SHI SKAGGS MA, ANNOTATI ON/ADDEN DUM Not Available [facility] 4 14:53:48 History of psychiat chiki disorder 388668703 Completed 201303/30/2016 RECORDED 06/21/19 14 2:38PM BY SHI SKAGGS MA, OFFICE VISIT Idalmis prajapati [facility] 7 16:11:26 Eruption [id number] Completed 201209/02/2013 IMPRESSI ON: FROM PICKING HER HEAD WITH NERVES, NO INFECTIO N, TREAT WITH CREAM; RECORDED 01/11/20 13 10:05AM BY SHI SKAGGS MA, ANNOTATI ON/ADDEN DUM FRIEDA French [facility] 7 15:02:11 Pain in limb 47443940 Completed 201209/02/2013 IMPRESSI ON: LIKELY CONTUSIO N WILL MAKE SURE NO FRACTURE ; RECORDED 09/25/19 13 4:19PM BY NYDIA CHRISTIANSEN MA, ANNOTATI ON/ADDEN DUM Not Available [facility] 4 14:53:48 Right upper quadrant pain 457322642 Completed 201109/02/2013 IMPRESSI ON: THE ECCHYMOT IC [...] SKAGGS MA, ANNOTATI ON/ADDEN DUM Not Available [facility] 4 14:53:48 Speciali zekirt medical examinat ion Completed 200809/02/2013 RECORDED 06/19/19 09 10:27AM BY MELITON FRENCH ON/ADDEN DUM Not Available [facility] 4 14:53:48 Disorder of skin and/or subcutan eous tissue 12049029 Completed 201209/02/2013 IMPRESSI ON: SKIN OF VULVA WITH 6 REDDISH LESIONS SEEMS LIKE VASCULAR LESIONS BUT WILL HAVE DERM CHECK OUT; RECORDED 09/25/19 13 4:19PM BY NYDIA CHRISTIANSEN MA, EMLITON ON/ADDEN DUM Not Available [facility] 4 14:53:48 Sprain of shoulder and upper arm Completed 201109/02/2013 RECORDED 02/19/20 12 1:39PM BY SHI SKAGGS MA, ANNOTATI ON/ADDEN DUM Not Available [facility] 4 14:53:48 Acute tonsilli tis 19549457 Completed 201209/02/2013 IMPRESSI ON: NEG QUICK STREP; RECORDED 03/06/19 13 1:55PM BY NYDAI CHRISTIANSEN MA, ANNOTATI ON/ADDEN DUM Not Available [facility] 4 14:53:49 Acute upper respirat ory infectio n 39370904 Completed 201303/29/2016 RECORDED 06/21/19 14 3:30PM BY AMARILIS LE, OFFICE VISIT FRIEDA French [place] - [facility] 7 15:02:38 Urinary tract infectio us disease 75479760 Completed 200809/02/2013 RECORDED 05/30/19 09 3:02PM BY BRENDAN COCHRAN MA, ANNOTATI ON/ADDEN DUM Not Available [facility] 4 14:53:49 Vaginiti s and vulvovag initis Completed 201109/02/2013 RECORDED 02/19/20 12 1:39PM BY SHI SKAGGS MA, ANNOTATI ON/ADDEN DUM Not Available [facility] 4 14:53:49 Anxiety 11248696 Completed 03/30/2016 Idalmis prajapati, [facility] 7 16:11:56 Chest pain 21723354 Completed 03/30/2016 Idalmis prajapati, [facility] 7 16:11:52 Abdomina l pain 01599659 Completed 03/29/2016 FRIEDA French, [facility] 7 15:02:04 Abdomina l pain [id number] Completed 201109/29/2013 RECORDED 02/19/20 12 1:39PM BY SHI SKAGGS MA, ANNOTATI ON/ADDEN DUM FRIEDA French, [facility] 7 15:02:04 Acute pharyngi tis [id number] Completed 200709/29/2013 IMPRESSI ON: NEG QUICK STREP, SEND CX; RECORDED 01/09/20 08 12:57PM BY MELITON MATHEWS ON/ADDEN DUM Not Available [facility] 4 05:37:57 Acute non-supp urative serous otitis media [id number] Completed 201109/29/2013 IMPRESSI ON: RESOLVED INFECTIO N WITH TRACI. HASTEN RESOLUTI ON WITH FLONASE. REASSURE D INFECTIO N RESOLVED .; RECORDED 02/19/20 12 1:39PM BY SHI SKAGGS MA, ANNOTATI ON/ADDEN DUM Not Available [facility] 4 05:37:57 Chronic alcoholi sm in [facility] [id number] Completed 201109/29/2013 IMPRESSI ON: NOT DRINKING , PIKE BEEN IN [facility], YEARS AGO ALCOHOL ABUSE WAS AN ISSUE AND COMPLICA DANICA HER MENTAL HEALTH TREATMEN T; RECORDED 02/19/20 12 1:40PM BY SHI SKAGGS MA, ANNOTATI ON/ADDEN DUM Not Available [facility] 4 05:37:57 Patient status finding [id number] Completed 201209/29/2013 RECORDED 06/06/19 13 11:40AM BY NYDIA CHRISTIANSEN MA, KIKAATI ON/ADDEN DUM FRIEDA French [facility] 7 15:01:47 Acute asthma 288463627 Completed 201109/29/2013 RECORDED 02/19/20 12 1:39PM BY SHI SKAGGS MA, ANNOTATI ON/ADDEN DUM Not Available [facility] 4 05:37:58 Backache [id number] Completed 201209/29/2013 IMPRESSI ON: CALL IN 1 WEEK IF NOT IMPROVIN G. WARNED OF DROWSINE SS WITH VICODIN AND FLEXERIL ; RECORDED 09/25/19 13 4:19PM BY NYDIA CHRISTIANSEN MA, KIKAATI ON/ADDEN DUM Idalmis prajapati [facility] 7 16:11:29 Clostrid ioides difficil e infectio n [id number] Completed 201109/29/2013 IMPRESSI ON: RESOLVED WITH TX, PT TO KEEP ON PROBIOTI C FOR A FEW MORE WEEKS TO RESOTRE KERMIT TO NORMAL.; RECORDED 02/19/20 12 1:39PM BY SHI SKAGGS MA, ANNOTATI ON/ADDEN DUM Not Available [facility] 4 05:37:58 Candidal vulvovag initis 62131722 Completed 200809/29/2013 RECORDED 06/19/19 09 10:27AM BY MELITON FRENCH ON/ADDEN DUM Not Available [facility] 4 05:37:58 Cellulit is and abscess of neck [id number] Completed 201109/29/2013 RECORDED 02/19/20 12 1:39PM BY SHI KAYCEE, MA, ANNOTATI ON/ADDEN DUM Not Available [facility] 4 05:37:58 Screenin g for malignan t neoplasm of cervix Completed 201209/29/2013 RECORDED 09/25/19 13 4:19PM BY NYDIA CHRISTIANSEN MA, ANNOTATI ON/ADDEN DUM Not Available [facility] 4 05:37:58 Colitis, enteriti s and gastroen teritis presumed infectio us 556780122 Completed 201109/29/2013 RECORDED 02/19/20 12 1:39PM BY SHI SKAGGS MA, ANNOTATI ON/ADDEN DUM Not Available [facility] 4 05:37:58 Conjunct ivitis 1645614 Completed 201109/29/2013 RECORDED 02/19/20 12 1:39PM BY SHI SKAGGS MA, KIKAATI ON/ADDEN DUM Not Available [facility] 4 05:37:58 Seborrhe ic dermatit is [id number] Completed 201109/29/2013 IMPRESSI ON: WITH DRY SCALP. PT REASSURE D. SHE WILL CHANGE SHAMPOOS (TRIAL OF T-GEL NEUTRAGE NA), WASH HAIR EVERY OTHER DAY. IF NEEDED SHE WILL USE PO ANTIHIST AMINES. PTS QUESTION S ANSWERED , FEELS BETTER ABOUT SXS. TO CONTACT OFFICE PRN.; RECORDED 02/19/20 12 1:39PM BY SHI SKAGGS MA, ANNOTATI ON/ADDEN DUM Not Available [facility] 4 05:37:58 History of depressi on [id number] Completed 201309/29/2013 RECORDED 06/21/19 14 2:38PM BY SHI SKAGGS MA, ANNOTATI ON/ADDEN DUM Not Available [facility] 4 05:37:58 Diarrhea [id number] Completed 201209/29/2013 IMPRESSI ON: NEW PROBLEM, PT WILL SEE DR MARION FOR EVAL,; RECORDED 01/11/20 13 10:05AM BY SHI SKAGGS MA, ANNOTATI ON/ADDEN DUM Not Available [facility] 4 05:37:58 Hearing loss [id number] Completed 201109/29/2013 RECORDED 02/19/20 12 1:39PM BY SHI SKAGGS MA, ANNOTATI ON/ADDEN DUM Not Available [facility] 4 05:37:58 Dysfunct ional uterine bleeding Completed 201109/29/2013 RECORDED 02/19/20 12 1:39PM BY SHI SKAGGS MA, ANNOTATI ON/ADDEN DUM Brendan Duarte-FRIEDA Live MA [facility] 8 15:03:51 Dysmenor rocael [id number] Completed 201209/29/2013 IMPRESSI ON: NL EXAM PAP AND CXS TODAY; RECORDED 09/25/19 13 4:19PM BY NYDIA CHRISTIANSEN MA, ANNOTATI ON/ADDEN DUM Not Available [facility] 4 05:37:58 Dysuria [id number] Completed 201109/29/2013 RECORDED 02/19/20 12 1:39PM BY SHI SKAGGS MA, ANNOTATI ON/ADDEN DUM Not Available [facility] 4 05:37:58 Disorder of cardiova scular system [id number] Completed 201109/29/2013 RECORDED 02/19/20 12 1:39PM BY SHI SKAGGS MA, ANNOTATI ON/ADDEN DUM Not Available [facility] 4 05:37:58 Fall on or from stairs or steps Completed 201209/29/2013 RECORDED 09/25/19 13 4:19PM BY NYDIA CHRISTIANSEN MA, ANNOTATI ON/ADDEN DUM Not Available [facility] 4 05:37:58 Family history of breast cancer [id number] Completed 201109/29/2013 IMPRESSI ON: REVIEWED [facility], TESTING NOT THOUGHT TO BE NECESSAR Y, WILL START MAMMO AT 39 AND PT TO LEARN TO DO SELF BREAST EXAM; RECORDED 02/19/20 12 1:39PM BY SHI SKAGGS MA, ANNOTATI ON/ADDEN DUM Not Available [facility] 4 05:37:58 Influenz a vaccine needed [id number] 06 Completed 201209/29/2013 RECORDED 10/26/19 13 2:51PM BY JUDIE BOTELLO, OFFICE VISIT Not Available [facility] 4 05:37:58 Closed fracture of radius 335509060 Completed 201109/29/2013 RECORDED 02/19/20 12 1:39PM BY SHI SKAGGS MA, KIKAATI ON/ADDEN DUM Not Available [facility] 4 05:37:58 Adult health examinat ion Completed 201309/29/2013 IMPRESSI ON: NOT DUE FOR A PAP, BREAST EXAM TODAY, INCREASE EXERCISE ; RECORDED 06/21/19 14 2:37PM BY SHI SKAGGS MA, ANNOTATI ON/ADDEN DUM Not Available [facility] 4 05:37:58 General examinat ion of patient Completed 200809/29/2013 IMPRESSI ON: PAP TODAY, GOING BACK TO SCHOOL; RECORDED 06/19/19 09 10:27AM BY MELITON FRENCH ON/ADDEN DUM Not Available [facility] 4 05:37:58 Well child [id number] Completed 201109/29/2013 RECORDED 02/19/20 12 1:39PM BY SHI SKAGGS MA, ANNOTATI ON/ADDEN DUM Not Available [facility] 4 05:37:58 Ingrowin g nail 653647671 Completed 201109/29/2013 IMPRESSI ON: SOAK FOOT WARM WATER MULTIPLE TIMES A DAY PODIATRY APPT IN CASE NEEDS PARTIAL NAIL REMOVAL. SHE WILL CANCEL APPT IF BETTER.; RECORDED 02/19/20 12 1:39PM BY SHI SKAGGS MA, ANNOTATI ON/ADDEN DUM Not Available [facility] 4 05:37:58 Low back pain 634039988 Completed 201309/29/2013 IMPRESSI ON: FOR MONTHS, HX OF A FEW FALLS, PT TO SET UP PT ORDER TO PT TODAY; RECORDED 06/21/19 14 2:38PM BY SHI SKAGGS MA, MELITON ON/ADDEN DUM FRIEDA French MA [facility] 7 15:02:14 Lymphade nopathy 82790357 Completed 201109/29/2013 IMPRESSI ON: BILAT, SCALP WITH SKIN LESION CAUSING LEFT OCCIPITA L NODE INVOLVEM ENT; RECORDED 02/19/20 12 1:39PM BY SHI SKAGGS MA, ANNOTATI ON/ADDEN DUM Not Available [facility] 4 05:37:58 Malaise and fatigue 145259892 Completed 201109/29/2013 IMPRESSI ON: ON MEDS BY CHERYL MASON AND IN COUNSELI NG WEEKLY; RECORDED 02/19/20 12 1:40PM BY SHI SKAGGS MA, ANNOTATI ON/ADDEN DUM Not Available [facility] 4 05:37:58 Blisters of multiple sites 509463845 Completed 201109/29/2013 RECORDED 02/19/20 12 1:39PM BY SHI SKAGGS MA, ANNOTATI ON/ADDEN DUM Not Available [facility] 4 05:37:58 Administ ration of bacteria l and viral vaccine Completed 200709/29/2013 RECORDED 01/09/20 08 12:58PM BY DEBBI COCHRAN, OFFICE VISIT Not Available [facility] 4 05:37:58 Herpetic gingivos tomatiti s [id number] Completed 201109/29/2013 IMPRESSI ON: TX WITH DENAVIR; RECORDED 02/19/20 12 1:39PM BY SHI SKAGGS MA, ANNOTATI ON/ADDEN DUM Not Available [facility] 4 05:37:58 Otalgia 64775805 Completed 201109/29/2013 IMPRESSI ON: X 3 DAYS, NO INFECTIO N, SUSPECT JAW JOINT INFLAMMA TION; RECORDED 02/19/20 12 1:40PM BY SHI SKAGGS MA, ANNOTATI ON/ADDEN DUM Not Available [facility] 4 05:37:58 Pneumoni a [id number] Completed 201109/29/2013 IMPRESSI ON: IMPROVED ON LEVAQUIN , PREDNISO NE AND INHALERS IN PT WITH ASTHMA, WILL GET REPEAT CXT [facility] IN A WEEK,; RECORDED 02/19/20 12 1:40PM BY SHI SKAGGS MA, ANNOTATI ON/ADDEN DUM Not Available [facility] 4 05:37:59 Secondar y polycyth emia [id number] Completed 201109/29/2013 IMPRESSI ON: PT SEEN YEST FOR ATYPICAL ECCHYMOT IC LESIONS. LABS DONE AND HGB TRENDING UP. TO HEM/ONC FOR FURTHER ASSESSME NT. NOT A SMOKER. CASE DISCUSSE D WITH DR. AARON Ramsay; RECORDED 02/19/20 12 1:39PM BY SHI SKAGGS MA, ANNOTATI ON/ADDEN DUM Not Available [facility] 4 05:37:59 Eruption [id number] Completed 201209/29/2013 IMPRESSI ON: FROM PICKING HER HEAD WITH NERVES, NO INFECTIO N, TREAT WITH CREAM; RECORDED 01/11/20 13 10:05AM BY SHI SKAGGS MA, ANNOTATI ON/ADDEN DUM FRIEDA French [facility] 7 15:02:11 Pain in limb 15959378 Completed 201209/29/2013 IMPRESSI ON: LIKELY CONTUSIO N WILL MAKE SURE NO FRACTURE ; RECORDED 09/25/19 13 4:19PM BY NYDIA CHRISTIANSEN MA, ANNOTATI ON/ADDEN DUM Not Available [facility] 4 05:37:59 Right upper quadrant pain 936014670 Completed 201109/29/2013 IMPRESSI ON: THE ECCHYMOT IC [...] SKAGGS MA, ANNOTATI ON/ADDEN DUM Not Available [facility] 4 05:37:59 Speciali regan medical examinat ion Completed 200809/29/2013 RECORDED 06/19/19 09 10:27AM BY MELITON FRENCH ON/ADDEN DUM Not Available [facility] 4 05:37:59 Disorder of skin and/or subcutan eous tissue 30241523 Completed 201209/29/2013 IMPRESSI ON: SKIN OF VULVA WITH 6 REDDISH LESIONS SEEMS LIKE VASCULAR LESIONS BUT WILL HAVE DERM CHECK OUT; RECORDED 09/25/19 13 4:19PM BY NYDIA CHRISTIANSEN MA, KIKAATI ON/ADDEN DUM Not Available [facility] 4 05:37:59 Sprain of shoulder and upper arm Completed 201109/29/2013 RECORDED 02/19/20 12 1:39PM BY SHI SKAGGS MA, ANNOTATI ON/ADDEN DUM Not Available [facility] 4 05:37:59 Acute tonsilli tis 74737559 Completed 201209/29/2013 IMPRESSI ON: NEG QUICK STREP; RECORDED 03/06/19 13 1:55PM BY NYDIA CHRISTIANSEN MA, MELITON ON/ADDEN DUM Not Available [facility] 4 05:37:59 Urinary tract infectio us disease 56031590 Completed 200809/29/2013 RECORDED 05/30/19 09 3:02PM BY BRENDAN COCHRAN MA, ANNOTATI ON/ADDEN DUM Not Available [facility] 4 05:37:59 Vaginiti s and vulvovag initis Completed 201109/29/2013 RECORDED 02/19/20 12 1:39PM BY SHI SKAGGS MA, ANNOTATI ON/ADDEN DUM Not Available [facility] 4 05:37:59 Infestat ion by Sarcopte s scabiei elle hominis 216937745 Completed 03/30/2016 Idalmis prajapati [facility] 7 16:11:16 Eruption [id number] Completed 03/29/2016 FRIEDA French [facility] 7 15:02:11 White blood cell count outside referenc e range 043966657 Completed 03/30/2016 Idalmis Glading-Frances maria isabel alo [facility] 7 16:11:34 Backache 710350852 Completed 03/30/2016 Idalmis Glading-Frances maria isabel alo [facility] 7 16:11:29 Tinea corporis 10981319 Completed 03/30/2016 Idalmis Glading-Frances maria isabel alo [facility] 7 16:12:07 Pain in throat 406641543 Completed 03/30/2016 Idalmis Glading-Frances maria isabel alo [facility] 7 16:11:32 Sciatica 22568152 Completed 03/30/2016 Idalmis Glading-Frances maria isabel alo [facility] 7 16:11:42 Low back pain 427647037 Completed 03/29/2016 FRIEDA French [facility] 7 15:02:14 Pain in lower limb 72299246 Completed 03/29/2016 FRIEDA French [facility] 7 15:01:44 Infectio n of toe 546770426 Completed 03/29/2016 FRIEDA French [facility] 7 15:02:24 Lacerati on of toe 432671334 Completed 03/29/2016 FRIEDA French [facility] 7 15:02:17 Infectio n of foot 252101802 Completed 03/29/2016 FRIEDA French [facility] 7 15:02:28 Slurred speech 340679181 Completed 03/29/2016 FRIEDA French [facility] 7 15:02:20 Headache 16125998 Completed 03/30/2016 Idalmis Glading-Frances ferreirao alo [facility] 7 16:11:45 Dysfunct ional uterine bleeding Active 2016 Brendan varela MA null, [facility] 8 15:03:51 Hypothyr oidism 96603460 Active 2017 Brendan varela MA null, [facility] 8 15:04:12 History of Intestin al infectio n caused by Clostrid ioides difficil e 65957909267 9101 Completed 201704/10/2023 RENUKA RAMÍREZ MD [address] [facility] [address], [facility] [place], [address] , [facility] 4 08:20:32 Mild intermit tent asthma 082635430 Active 2019 Idalmis nicolas null, [facility] 0 10:09:22 Eczema 23615964 Active 2020 Judie Botello MA null, [facility] 1 15:05:27 Psoriasi s 6594041 Active 2022 Dominga Jameson [facility], [facility] 3 07:52:52 Irritabl e bowel syndrome with diarrhea 901003561 Active 2022 Dominga Jameson [facility], [facility] 3 07:53:26 Tachycar chance 7767042 Active FRIEDA French, [facility] 4 14:41:33 Problem Notes None recorded. Procedures Surgical History Date Name Laterality Status Provider Name and Address Organization Details Recorded Time 05/16/19 25 Most Recent Mammogram completed Katharina Alvarez [facility] 05/16/2024 12:53:24 05/16/19 25 Mammogram screening completed Katharina Alvarez [facility] 05/16/2024 12:53:06 07/15/19 23 Dressing Change completed RENUKA RAMÍREZ MD [address], [place], [address], [facility] 07/14/2022 07:44:40 06/20/19 23 Suture/Staple removal completed RENUKA RAMÍREZ MD [address], [place], [address], [facility] 06/19/2022 10:34:36 06/17/19 23 Suture/Staple removal completed RENUKA RAMÍREZ MD [address] [facility] [address], [place], [address], [facility] 06/15/2022 09:30:10 12/21/19 21 Date of Last Pap Smear completed Judie Botello MA [facility] 12/22/2020 11:07:59 05/03/19 19 Mini-Cog Test completed Judie Botello MA [facility] 05/02/2018 08:44:28 07/25/19 17 Mini-Cog Test completed Judie Botello MA [facility] 07/24/2016 14:56:47 10/01/19 16 Suture/Staple removal completed Estrellita Pitt PA-C [address] [facility] [address] [facility], [place], [address], [facility] 10/01/2015 14:56:47 Tonsillectomy completed Shi Skaggs [facility] 09/04/2013 15:46:02 Imaging Results None recorded. Procedure Notes None recorded. Medical Equipment None Reported. Allergies Allergen ID Allergen Name Allergen Category Reaction Reaction Severity Criticality Documentation Date Start Date Code Code System Note Provider Name and Address Organization Details Recorded Time 14584 Elimite medicatio n rash Not available Not available 10/22/2013 44384 5 RxNorm Idalmis prajapati [facility] 4 11:49:40 6664 Augmentin medicatio n diarrhea Not available Not available 09/02/20132013 40765 2 RxNorm FRIEDA Zhou [facility] 8 15:06:49 6665 No known allergy (situatio n) Not available Not available Not available Not available 09/02/20132011 50849 6003 SNOMED COMME NT: RECOR DED 11/01 10:34 AM BY SAL VARELA MA, KIKA SALAMANCA /MARCELLE VALLE; Not Available [facility] 4 13:24:03 Medications Name Sig Start [...] completed Not Available Not Available Not Available benztropi ne 0.5 mg tablet TAKE 1 TABLET BY MOUTH 2 TIMES A DAY FOR DYSTONIC REACTION active Not Available Not Available No t Available ketoconaz ole 2 % shampoo APPLY [...] Not Available Not Available No t Available methylphe nidate ER 10 mg tablet,ex tended release TAKE 1 TABLET BY MOUTH EVERY MORNING active Not Available Not Available No t Available penicilli n V potassium 500 mg tablet 07/27 completed Not Available Not Available Not Available lithium carbonate ER 300 mg tablet,ex tended release TAKE 1 TABLET BY MOUTH TWICE A DAY active Not Available Not Available No t Available risperido ne 0.25 mg tablet TAKE 1 TABLET BY MOUTH TWICE A DAY DIRECTED active Not Available Not Available [...] Not Available quetiapin e 100 mg tablet TAKE 1 TABLET BY MOUTH DAILY AT BEDTIME active Not Available Not Available No t Available triamcino lone acetonide 0.1 % topical cream Apply by topical route for 15 days. 11/27 completed Not Available Not Available Not Available bupropion HCl SR 100 mg tablet,12 hr sustained -release TAKE 1 TABLET BY MOUTH EVERY MORNING DIRECTED active Not Available Not Available No t Available lithium carbonate ER 450 mg tablet,ex tended release TAKE 1 TABLET BY MOUTH AT BEDTIME active Not Available Not Available No t Available levothyro xine 25 mcg tablet Take [...] Not Available Not Available No t Available Mobic 15 mg tablet Take 1 tablet [...] lorazepam 0.5 mg tablet TAKE 1 TABLET ORALLY 2 TIMES A DAY NEEDED FOR ANXIETY active Not Available Not Available No t Available desonide 0.05 % topical ointment active [...] Not Available Not Available No t Available divalproe x ER 500 mg tablet,ex tended release 24 hr TAKE 2 TABLETS BY MOUTH EVERY DAY DIRECTED active Not Available Not Available No t Available polymyxin B sulfate 10,000 unit-trim ethoprim 1 mg/mL eye drops 04/27 completed Not Available Not Available Not Available methylphe nidate ER 20 mg tablet,ex tended release TAKE 1 TABLET BY MOUTH EVERY DAY IN THE MORNING active Not Available Not Available No t Available fluoxetin e 10 mg capsule Take 1 capsule every day by oral route for 30 days. 03/26 completed Not Available Not Available Not Available mupirocin calcium 2 % topical cream BID 06/20 completed RECORDED 06/21/19 08 9:31AM BY KIMBER BAKER, MEDICATI ON AUTO-EMERY CTIVATIO N; Not Available Not Available Not Available gabapenti n 300 mg capsule TAKE 1 CAPSULE BY MOUTH TWICE A DAY DIRECTED active Not Available Not Available No t Available omeprazol e 20 mg capsule,d elayed [...] Available Not Available zolpidem 5 mg tablet TAKE 1/2 TO 1 TABLET BY MOUTH AT BEDTIME NEEDED FOR INSOMNIA active Not Available Not Available No t Available metoprolo l succinate ER 25 mg tablet,ex tended release 24 hr TAKE 1 TABLET BY MOUTH EVERY DAY active Not Available Not Available No t Available nystatin 100,000 unit/gram topical powder BID 06/24 completed RECORDED 06/25/19 10 1:45PM BY MELITON COFFEY/SLIM MANNING; Not Available Not Available Not Available [...] 1 TABLET BY MOUTH TWICE A DAY 07/22 completed Not Available Not Available Not Available hydrocort isone 2.5 % topical ointment [...] 2 TIMES A DAY TO AFFECTED AREA 04/10/ 2009 04/20 /2009 completed RECORDED 06/19/19 09 10:26AM BY CHIN [...] active Not Available Not Available Not Available dextroamp hetamine- amphetami ne 5 mg tablet TAKE 1 TABLET BY MOUTH TWICE A DAY DIRECTED AT LEAST 4-6 HOURS APART active Not Available Not Available No t Available risperido ne 0.5 mg tablet TAKE 1/2 TO 1 TABLET BY MOUTH TWICE A DAY DIRECTED active Not Available Not Available No t Available naproxen 500 mg tablet TWO TIMES DAILY 12/22 completed Not Available Not Available Not Available mometason e 0.1 % topical cream APPLY A THIN LAYER TO THE AFFECTED AREA(S) BY TOPICAL ROUTE ONCE DAILY active Not Available Not Available No t Available diazepam 5 mg tablet TAKE 2 TABLETS BY MOUTH AT BEDTIME NEEDED FOR DYSTONIC REACTION active Not Available Not Available No t Available progester one micronize d 100 mg capsule TAKE 1 CAPSULE EVERY DAY IN THE MORNING FOR 21 DAYS THEN 7 DAYS OFF active Not Available Not Available No t [...] VISIT; Not Available Not Available Not Available divalproe x ER 250 mg tablet,ex tended release 24 hr TAKE 1 TABLET BY MOUTH TWICE A DAY DIRECTED active Not Available Not Available No t Available cyclobenz aprine 5 mg tablet EVERY 8 HRS NEEDED FOR MUSCLE SPASM 06/15 completed RECORDED 06/19/19 13 2:01PM BY JUDIE BOTELLO, FERNANDO ON AUTO-EMERY CTIVATIO N; Not Available Not Available Not Available aripipraz ole 5 mg tablet QD 09/17 completed RECORDED 09/18/19 10 8:54AM BY TAO JUAREZ, OFFICE VISIT;[facility] Not Available Not Available Not Available Spiriva [...] 300 mg tablet,ex tended release 24 hr TAKE 1 TABLET BY MOUTH AT BEDTIME active Not Available Not Available No t Available quetiapin e ER 200 mg tablet,ex tended release 24 hr TAKE 1 TABLET BY MOUTH AT BEDTIME active Not Available Not Available No t Available quetiapin e ER 50 mg tablet,ex tended release 24 hr TAKE 2 TABLETS BY MOUTH EVERY DAY AT 5PM active Not Available Not Available No t Available quetiapin e ER 150 mg tablet,ex tended release 24 hr TAKE 1 TABLET BY MOUTH EVERY DAY active Not Available Not Available No t Available guanfacin e ER 2 mg tablet,ex tended release 24 hr TAKE 1 TABLET BY MOUTH EVERY MORNING 07/22 completed Not Available Not Available Not Available guanfacin e ER 1 mg tablet,ex tended release 24 hr TAKE 1 TABLET BY MOUTH EVERY DAY AT 5 PM active Not Available Not Available No t Available Latuda 20 mg tablet active Not Available Not Available No t Available Banophen 50 mg capsule TAKE 1-2 CAPSULES ORALLY AT BEDTIME NEEDED FOR SLEEP active Not Available Not Available No t Available Vicodin 5 mg-300 mg tablet EVERY 6 HRS NEEDED FOR PAIN 06/15 completed RECORDED 06/19/19 13 2:01PM BY JUDIE BOTELLO, MEDICATI ON AUTO-EMERY CTIVATIO N; Not Available Not Available Not Available memantine 14 mg capsule sprinkle, extended release 24hr TAKE 1 CAPSULE BY MOUTH AT BEDTIME active Not Available Not Available No t Available memantine 7 mg capsule sprinkle, extended release 24hr TAKE 1 CAPSULE BY MOUTH AT BEDTIME 07/22 completed Not Available Not Available Not Available Drysol 20 % topical solution Apply 1 applicat ion every 72 hours by topical route for 30 days. 12/13 completed Not Available Not Available Not Available Vraylar 1.5 mg capsule TAKE 1 CAPSULE BY MOUTH EVERY DAY active Not Available Not Available No t Available Vraylar 3 mg capsule TAKE 1 CAPSULE BY MOUTH EVERY DAY DIRECTED 07/22 completed Not Available Not Available Not Available [...] Updated DateTime 5 160.02 cm 31.4 kg/m2 00979.9 5 g 99 % 99 % 97 /min 98.2 [degF] 122 mm[Hg] 75 mm[Hg] Judie Botello MA [facility] 5 14:46:57 Date Recorded Body height Body mass index (BMI) Body weight Heart rate Oxygen saturation Oxygen saturation in Arterial blood by Pulse oximetry Body temperature Systolic blood pressure Diastolic blood pressure Provider Name and Address Organization Details Last Updated DateTime 5 160.02 cm 31.5 kg/m2 74566.4 4 g 81 /min 98 % 98 % 98.3 [degF] 110 mm[Hg] 71 mm[Hg] Brendan madrigal MA [facility] 5 13:55:06 Date Recorded Body height Body mass index (BMI) Body weight Heart rate Oxygen saturation Oxygen saturation in Arterial blood by Pulse oximetry Body temperature Systolic blood pressure Diastolic blood pressure Provider Name and Address Organization Details Last Updated DateTime 5 160.02 cm 30.1 kg/m2 69447.7 g 108 /min 100 % 100 % 98 [degF] 108 mm[Hg] 78 mm[Hg] Princess honeycutt MA [facility] 5 13:30:43 Date Recorded Body height Body mass index (BMI) Body weight Oxygen saturation Oxygen saturation in Arterial blood by Pulse oximetry Heart rate Body temperature Systolic blood pressure Diastolic blood pressure Provider Name and Address Organization Details Last Updated DateTime 5 160.02 cm 29.1 kg/m2 10641.5 5 g 100 % 100 % 81 /min 98.5 [degF] 113 mm[Hg] 81 mm[Hg] Judie Botello MA [facility] 5 11:26:45 Date Recorded Body height Body mass index (BMI) Body weight Oxygen saturation Oxygen saturation in Arterial blood by Pulse oximetry Heart rate Body temperature Systolic blood pressure Diastolic blood pressure Provider Name and Address Organization Details Last Updated DateTime 4 160.02 cm 32.1 kg/m2 49053.9 2 g 98 % 98 % 87 /min 98.2 [degF] 110 mm[Hg] 76 mm[Hg] Judie Botello MA [facility] 4 09:39:01 Social History Question Answer Notes LastModified by Organizat ion Details LastModified Time Tobacco Smoking Status Never Smoker Shi prajapati [facility] 09/04/2013 15:53:32 Do You Have An Advance Directive? No Information not available 01/20/2022 Is Blood Transfusion Acceptable In An Emergency? Yes Information not available 10/16/2014 What Is Your Level Of Caffeine Consumption? Occasional Seldom Information not available 08/27/2020 How Much Tobacco Do You Chew? None [email or web address] Information not available 08/04/2019 What Type Of Diet Are You Following? REGULAR Eating Mostly Chicken And Fish [email or web address] Information not available 04/05/2022 Which Illicit Or Recreational Drugs Have You Used? Marijuana Weekly [email or web address] Information not available 09/04/2013 Hard Of Hearing Or Deaf In One Or Both Ears? No Information not available 01/20/2022 Legally Blind In One Or Both Eyes? No Information not available 01/20/2022 Live Alone Or With Others? With Others Parents Information not available 01/20/2022 Do You Take Precautions To Prevent Distracted Driving? Yes [email or web address] Information not available 10/16/2014 How Often Do You Need To Have Someone Help You When You Read Instructions, Pamphlets, Or Other Written Material From Your Doctor Or Pharmacy? Sometimes [email or web address] Information not available 10/16/2014 Have You Served In The ? No [email or web address] Information not available 12/22/2020 Have You Or Anyone In Your Household Had Any Of The Following Symptoms In The Last 14 Days: Sore Throat, Cough, Chills, Body Aches For Unknown Reasons, Shortness Of Breath For Unknown Reasons, Loss Of Smell, Loss Of Taste, Fever At Or Greater Than 100 Degrees Fahrenheit? No [email or web address] Information not available 08/18/2019 Are You Or Anyone In Your Household A Health Care Provider Or Emergency Responder? No [email or web address] Information not available 08/18/2019 To The Best Of Your Knowledge Have You Been In Close Proximity To Any Individual Who Tested Positive For COVID-19? No [email or web address] Information not available 08/18/2019 *AWV ONLY* Are You Presently Prescribed Opioid Medication By PCP Or Specialist? If YES -Provider Assess The Benefit For Other, Non-opioid Pain Therapies Instead, Even If The Patient Does Not Have OUD But Is Possibly At Risk. No [email or web address] Information not available 12/22/2020 Have You Recently Traveled To A COVID-19 High Risk Area Or Gathering In The Last 10 Days? No [email or web address] Information not available 03/18/2020 What Was The Date Of Your Most Recent Tobacco Screening? 06/30/2024 [email or web address] Information not available 06/30/2024 How Many Children Do You Have? 0 Information not available 08/27/2020 What Is Your Relationship Status? Single Information not available 01/20/2022 Seat Belts Used Routinely Yes Information not available 01/20/2022 Are You Sexually Active? Yes Woman Partner [email or web address] Information not available 02/15/2015 Smoke Alarm In Home Yes Information not available 01/20/2022 At What Age Did You Start Smoking Tobacco? 1 [email or web address] Information not available 08/04/2019 How Much Tobacco Do You Smoke? No [email or web address] Information not available 08/04/2019 General Stress Level Medium Information not available 01/20/2022 Do You Use Sunscreen Routinely? Yes [email or web address] Information not available 10/16/2014 Sex: Unknown Functional Status Question Answer Note LastModified by Organizat ion Details LastModified Time What is your level of alcohol consumption? None Information not available 08/27/2020 Do you or have you ever used smokeless tobacco? Never used smokeless tobacco [email or web address] Information not available 08/04/2019 Are you currently employed? No Information not available 02/15/2015 Are you able to walk? [email or web address] Information not available 01/20/2022 Are you able to care for yourself? Yes [email or web address] Information not available 02/15/2015 What is your occupation? none Information not available 08/27/2020 Do you or have you ever used e-cigarettes or vape? Never used electronic cigarettes Information not available 01/20/2022 What is your exercise level? Occasional walking 3 x week Information not available 08/27/2020 Mental Status None recorded. Family History Relationship Description Onset Age of this Age Resolved Age Notes LastModified by Organization Details LastModified Time Mother Carcinoma in situ of breast [email or web address] Not available 02/15 11:12:37 Maternal Grandmother Carcinoma in situ of breast [email or web address] Not available 02/15 11:12:37 Maternal Grandfather Myocardial infarction [email or web address] Not available 01/20 11:12:37 Notes:No FH of colon cancer Medical History Condition Response Coronary Artery Disease N Other N Gout N Kidney Stones N Blood Diseases N Hyperthyroidism Y Breast Cancer N mrsa exposure N Depression Y COPD N Lung Disease N Hypothyroidism N Developmental or Behavioral Disorders N Defects or Inherited Disease N Breast Problem N Anesthesia Complications N Headaches/Migraines N Varicose Veins N Anxiety Disorder Y Muscle, Joint, or Bone Problems N Obesity N Vision or Eye Problems N Arthritis N Head Injury/Concussion N Polyps N Infertility N Mental Disorder N Congenital Anomalies N Acid Reflux (GERD) N Cancer N Stroke N ADHD N Endometriosis N High Cholesterol N Liver Disease N Headaches N Fibromyalgia N Kidney Disease N Heart Problems N Ear or Hearing Problems Y Hospitalizations N Thyroid Problems N GI Problems Y Developmental Delay N Acne N Skin Problems N Eating Disorder N Anemia N Constipation N Bladder Problems N Mental Illness Y Ovarian Cancer N Diabetes N Bedwetting N Blood Transfusions N Seizures/Epilepsy N Heart Problems/Murmur N Tuberculosis N AIDS/HIV N Congestive Heart Failure (CHF) N Eczema N Diverticulitis N Abuse/Domestic Violence N Asthma Y Allergies N Reflux/GERD N Hepatitis N Heart Disease N Pulmonary Embolism N Hypertension N Osteoporosis N Chicken Pox N Autism Spectrum Disorder (ASD) N Gynecological History Statement/Question Response Date of Last Pap Smear 12/20/2020 Most Recent Mammogram 05/15/2024 Obstetrics History GPAL:G 0 P 0 0 0 0 Immunizations Vaccine Type Date Status Note Provider Nam e and Address Organization Details Recorded Time Tdap 6 [facility] 13:24:33 Influenza, split virus, quadrivalent, PF 5 completed Not Available [facility] 03/08/2019 02:22:02 pneumococcal polysaccharide PPV23 5 completed Not Available [facility] 03/08/2019 02:21:42 COVID-19, mRNA, LNP-S, PF, 30 mcg/0.3 mL dose 1 completed FRIEDA Dexter [facility] 01/20/2022 13:24:02 COVID-19, mRNA, LNP-S, PF, 30 mcg/0.3 mL dose 1 completed FRIEDA Dexter [facility] 01/20/2022 13:24:02 COVID-19, mRNA, LNP-S, PF, 30 mcg/0.3 mL dose 1 completed FRIEDA Dexter, [facility] 01/20/2022 13:24:02 COVID-19, mRNA, LNP-S, bivalent, PF, 30 mcg/0.3 mL dose 2 completed FRIEDA Dexter, [facility] 01/20/2022 13:24:33 Td (adult), 5 Lf tetanus toxoid, preservative free, adsorbed 4 completed FRIEDA Dexter, [facility] 01/20/2022 13:24:33 Influenza, MDCK, quadrivalent, PF 0 completed FRIEDA Dexter, [facility] 01/20/2022 13:24:33 Tdap 3 completed FRIEDA French, [facility] 08/17/2022 11:37:19 Influenza, split virus, quadrivalent, PF 3 completed FRIEDA French, [facility] 04/26/2023 14:40:16 Influenza, split virus, quadrivalent, PF 6 completed Not Available [facility] 03/08/2019 02:22:04 Influenza, split virus, quadrivalent, PF 7 completed Not Available [facility] 03/08/2019 02:22:11 Influenza, split virus, quadrivalent, PF 8 completed Not Available [email or web address] 03/08/2019 02:22:15 Influenza, split virus, trivalent, PF 4 completed Not Available [facility] 03/08/2019 02:21:57 Influenza, split virus, quadrivalent, PF 9 completed Not Available [email or web address] 03/08/2019 02:22:10 Influenza, split virus, quadrivalent, PF 1 completed Idalmis dooley null, [facility] 12/22/2020 11:24:47 Meningococcal MCV4O 6 completed Not Available [facility] 09/02/2013 13:58:38 Influenza, split virus, trivalent, preservative 7 completed Not Available [facility] 09/02/2013 13:58:38 Influenza, split virus, trivalent, preservative 8 completed Not Available [facility] 09/02/2013 13:58:38 Tdap 8 completed Not Available [facility] 09/02/2013 13:58:38 Influenza, split virus, trivalent, preservative 0 completed Not Available [facility] 09/02/2013 13:58:38 Influenza, split virus, trivalent, preservative 1 completed Not Available [facility] 09/02/2013 13:58:38 Influenza, split virus, trivalent, preservative 2 completed Not Available [facility] 09/02/2013 13:58:38 influenza, seasonal, intradermal, preservative free 3 completed Not Available [facility] 09/02/2013 13:58:38 Influenza, split virus, quadrivalent, PF 2 completed Idalmis dooley null, [facility] 12/01/2021 10:15:17 Influenza, split virus, trivalent, PF 4 completed RENUKA RAMÍREZ MD [address], [address], [facility] 12/21/2023 19:00:12 Past Encounters Encounter ID Performer Location Encounter Start Date Encounter Closed Date Diagnosis/Indication Diagnosis SNOMED-CT Code Diagnosis ICD10 Code Diagnosis Note [id number] Joh[facility]onez [facility] Main Office [address] [facility] [address] [place] [address] 09/04/2013 15:31:37 09/04/2013 17:14:27 Anxiety 83588325 Chest pain 84668654 Abdominal pain 04236206 [id number] [facility] [address] [facility] [place] [address] 04/06/2006 00:00:00 [id number] autoEComm erce [address] [facility] [place] [address] 07/20/2005 00:00:00 [id number] [address] [address] [place] [address] 08/09/2005 00:00:00 [id number] auto[facility]Comm erce [address] [address] [place] [address] 08/24/2005 00:00:00 [id number] auto[facility]Comm erce [address] [address] [place] [address] 07/04/2006 00:00:00 [id number] autoEComm erce [address] [facility] [address],[place] [address] [place] [address] 07/11/2006 00:00:00 [id number] autoEComm erce [address] [facility] [address] [place] [address] 09/18/2006 00:00:00 [id number] autoEComm erce [address] [facility] [address] [place] [address] 12/17/2006 00:00:00 [id number] autoEComm erce [address] [facility] [address] [place] [address] 12/24/2006 00:00:00 [id number] autoEComm erce [address] [facility] [address] [place] [address] 03/20/2007 00:00:00 [id number] autoEComm erce [address] [facility] [address] [place] [address] 06/14/2007 00:00:00 [id number] autoEComm erce [address] [facility] [address] [place] [address] 07/04/2007 00:00:00 [id number] autoEComm erce [address] [facility] [address] [place] [address] 01/09/2008 00:00:00 [id number] autoEComm erce [address] [facility] [address] [place] [address] 05/29/2008 00:00:00 [id number] autoEComm erce [address] [address] [place] [address] 06/18/2008 00:00:00 [id number] autoEComm erce [address] [address] [place] [address] 09/24/2008 00:00:00 [id number] autoEComm erce [address] [address] [place] [address] 10/05/2008 00:00:00 [id number] autoEComm erce [address] [address] [place] [address] 11/26/2008 00:00:00 [id number] autoEComm erce [address] [address] [place] [address] 01/13/2009 00:00:00 [id number] autoEComm erce [address] [facility] [address] [place] [address] 05/13/2009 00:00:00 [id number] autoEComm erce [address] [facility] [address],[place] [address] [place] [address] 06/16/2009 00:00:00 [id number] autoEComm erce [address] [facility] [address] [place] [address] 07/26/2009 00:00:00 [id number] autoEComm erce [address] [facility] [address] [place] [address] 09/17/2009 00:00:00 [id number] autoEComm erce [address] [address] [place] [address] 01/05/2010 00:00:00 [id number] autoEComm erce [address] [facility] [address] [place] [address] 01/14/2010 00:00:00 [id number] autoEComm erce [address] [facility] [place] [address] 02/17/2010 00:00:00 [id number] autoEComm erce [address] [facility] [address] [place] [address] 06/29/2010 00:00:00 [id number] autoEComm erce [address],[place] [address] [place] [address] 07/27/2010 00:00:00 [id number] autoEComm erce [address] [address] [place] [address] 12/01/2010 00:00:00 [id number] autoEComm erce [address] [address] [place] [address] 12/19/2010 00:00:00 [id number] autoEComm erce [address] [address] [place] [address] 01/11/2011 00:00:00 [id number] autoEComm erce [address] [address] [place] [address] 01/18/2011 00:00:00 [id number] autoEComm erce [address] [address] [place] [address] 01/24/2011 00:00:00 [id number] autoEComm erce [address] [address] [place] [address] 02/27/2011 00:00:00 [id number] autoEComm erce [address] [address] [place] [address] 07/19/2011 00:00:00 [id number] autoEComm erce [address] [address] [place] [address] 08/14/2011 00:00:00 [id number] autoEComm erce [address] [address] [place] [address] 08/18/2011 00:00:00 [id number] autoEComm erce [address] [address] [place] [address] 10/24/2011 00:00:00 [id number] autoEComm erce [address] [address] [place] [address] 11/02/2011 00:00:00 [id number] autoEComm erce [address] [address] [place] [address] 02/19/2012 00:00:00 [id number] autoEComm erce [address] [address] [place] [address] 03/06/2012 00:00:00 [id number] autoEComm erce [address] [address] [place] [address] 06/05/2012 00:00:00 [id number] autoEComm erce [address] [address] [place] [address] 06/10/2012 00:00:00 [id number] autoEComm erce [address] [address] [place] [address] 06/28/2012 00:00:00 [id number] autoEComm erce [address] [address] [place] [address] 09/24/2012 00:00:00 [id number] autoEComm erce [address] [address] [place] [address] 10/25/2012 00:00:00 [id number] autoEComm erce [address] [address] [place] [address] 01/10/2013 00:00:00 [id number] autoEComm erce [address] [address] [place] [address] 01/24/2013 00:00:00 [id number] autoEComm erce [address] [address] [place] [address] 2013 00:00:00 [id number] autoEComm erce [address] [place] [address] 06/20/2013 00:00:00 [id number] ALEX Le Main Office [address] [place] [address] 10/14/2013 14:06:23 10/14/2013 14:56:05 Infestation by Sarcoptes scabiei elle hominis [id number] call if does not improve after second treatment in a week [id number] Idalmis nicolas MD Main Office [address] [facility] [address] [facility] [place] [address] 10/16/2013 13:38:05 10/16/2013 14:08:14 Asthma 342214414 well cotnrolled continue meds Bipolar I disorder 817867160 on meds and in counsleing Disorder of coccyx 64259055 healing, hx of a fall Infestatio n by Sarcoptes scabiei elle hominis [id number] did tx and laundry, pt is crying over having scabies, reasoned with her aobut a self limited event, she calmed down by the time she left and has her therapist for supprt [id number] Idalmis nicolas MD Main Office [address] [place] [address] 10/22/2013 10:56:55 10/22/2013 11:43:54 Eruption 475741512 severe allergic reaction to elimite, pt to finish medrol dose pack, use benadryl at night adn try motrin for the pain Bipolar I disorder 696484187 on meds and in counsleing , pt is seeing ehr therapist today,she is coping better than the other night when she went to the ER nad spoke tot he child protective services social 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 Infestatio n by Sarcoptes scabiei elle hominis [id number] pt treated herself with elimite 2 tiems a week apart, she has a reaction to the elimite. she is on the last 2 days of the medrol dose pack and doing well, in the past she had had joe with prednisone but doing better this time. [id number] Idalmis nicolas MD Main Office [address] [facility] [address] [facility] [place] [address] 12/03/2013 08:44:24 12/03/2013 09:35:46 Bipolar I disorder 244449828 pt is feeling very depressed, states she [...] not want to complicate anything today Eruption 774950751 very faint, pt is very nervous about [...] days to help if possible drug related. [id number] ALEX Maya Main Office [address] [address] 12/10/2013 16:23:48 12/10/2013 16:55:47 Needs influenza immunization 578513362 Bipolar I disorder 913020395 Patient hadher meds changed on Sunday by her prescriber and has seen her therapist since last visit 12/03. She does not feel SI/HI, mood is better. Eruption [id number] Saw kirt almonte on Sunday who prescribed cream for her rash, it is improving and pt feels better. [id number] Idalmis nicolas MD Main Office [address] [place] [address] 06/10/2014 15:24:10 06/10/2014 16:08:41 Bipolar I disorder 586832015 on meds and feels they are helping. 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 Asthma 680303813 a bit o f a flare, was put on steroids last month, continue meds. [id number] Idalmis nicolas MD Main Office [address] [place] [address] 10/16/2014 10:41:58 10/16/2014 11:34:30 Bipolar I disorder 313664123 on meds and feels they are helping. is working with therapist on maybe volunteeri ng. Anxiety 55278473 Asthma 292152788 asthma is controlled . Backache 835990215 Needs infl uenza immunization 565405471 Eruption 108860008 looks like sun reaction, use otc hydrocorti sone and lotion [id number] Idalmis nicolas MD Main Office [address] [facility] [address] [place] [address] 02/15/2015 10:56:10 02/15/2015 11:53:33 Adult health examination 507887796 Z00.00 pap next year, will add more exercise. Bipolar I disorder 07729 6008 F31.9 on meds and feels they are helping. is working with therapist and is volunteeri ng. Administra tion of pneumococcal vaccine 43497086 Z23 Asthma 671244741 J45.90 9 asthma is controlled . will get pneumovax today, never had [id number] Josee Casillas MD Main Office [address] [place] [place] [address] [place] [address] 07/09/2015 09:56:30 07/09/2015 10:35:29 Pain in throat 912318237 R07.0 rapid strep is negative. Viral infection. Advised NSAIDs or tylenol, fluids and rest. [id number] Idalmis nicolas MD Main Office [address] [address] [place] [address] 08/16/2015 14:51:18 08/16/2015 15:18:13 Asthma 809438874 J45.909 asthma is controlled Bipolar I disorder 68787 6008 F31.9 just finished partial hospitaliz ation, continue meds nad therapy Sciatica 79827417 M54.31 into right calf, positive straight leg raise, pt to see PT Low back pain 359513537 M54.5 PT referral, flexeril for night if spasms [id number] Idalmis nicolas MD Main Office [address] [address] [place] [address] 09/09/2015 09:14:35 09/09/2015 10:18:31 Impacted cerumen 07759999 H61.23 soaked and lavaged without problems Pain in lower limb 45718 006 M79.604 spasm, pt to try soma and exercise and stretch [id number] Estrellita Pitt PA-C Main Office [address] [place] [place] [address] [place] [address] 09/24/2015 13:53:33 09/24/2015 15:00:06 Infection of toe 719088871 L08.9 Start Abx as directed. Dressing changes daily , apply topical Abx as well. Laceration of toe 029149 004 S91.119A Remove sutures as scheduled next week. [id number] Estrellita Pitt PA-C Main Office [address] [facility] [address] [place] [address] 09/29/2015 08:38:23 09/29/2015 09:42:03 Infection of toe 916539979 L08.9 Switch from Keflex to Bactrim DS BID for 10 days. Wound culture taken. Recheck in 3-4 days and remove sutures. [id number] Estrellita Pitt PA-C Main Office [address] [address] [place] [address] 10/01/2015 08:45:49 10/01/2015 09:23:21 Laceration of toe 091374548 S91.119A 3 sutures removed w/o significan t discomfort . Pt. is advised to keep wound covered until full closure and scab comes off. Infection of toe 9562890 06 L08.9 Continue Bactrim DS as directed. Check on wound culture results. F/u prn. [id number] Idalmis nicolas MD Main Office [address] [address] [place] [address] 10/21/2015 12:42:29 10/21/2015 13:28:14 Slurred speech 151481937 R47.81 I viewed her video on her phone, unclear, she denies any substances , will get US and Ct to rule out any CVA/bleed but very unlikely, if it recures pt was told to go to ER, Headache 45804572 R51 mild, only a day or 2, not there with slurred speecha dn very mild [id number] Idalmis nicolas MD Main Office [address] [place] [address] [place] [address] 11/25/2015 10:41:59 11/25/2015 11:44:21 Slurred speech 469606620 R47.[address] of head and carotid US Influenza vaccine needed 1879170563 106 Z23 Asthma 914276764 J45.90 9 asthma is controlled .she was followed by Eddie Haywood but she just retired, was on Brevo inhaler but stopped it. Is on singulair and proair prn. Bipolar I disorder 99158 6008 F31.9 is on meds, thinks she gained weight due to stress eating. continue meds [id number] Estrellita Pitt PA-C Main Office [address] [address] 12/10/2015 13:49:46 12/10/2015 14:57:55 Candidiasis of mouth 70086486 B37.0 [id number] Idalmis nicolas MD Main Office [address] [address] 03/29/2016 15:00:02 03/29/2016 15:46:19 Asthma 747257917 J45.909 asthma is controlled . continue meds Bipolar I disorder 18723 6008 F31.9 is on meds, mood is stable, volunteeri ng which is good for her, just out of partial hospitaliz ation [id number] Idalmis nicolas MD Main Office [address] [address] 07/06/2016 14:52:06 07/06/2016 15:43:01 Vitamin D deficiency 74855965 E55.9 take weekly med Bipolar I disorder 46887 6008 F31.9 is on meds, mood is stable, volunteeri ng which is good for her, just out of partial hospitaliz ation [id number] Idalmis nicolas MD Main Office [address] [address] 07/24/2016 14:52:50 07/24/2016 15:34:41 Adult health examination 442862660 Z00.00 is exercising a lot and feels well, disappoint ed no weight loss but feels better. Change in skin lesion 39 7617886 L98.9 left arm, we will make appt with DR Tobin Asthma 607907487 J45.90 9 asthma is controlled . continue meds Bipolar I disorder 18914 6008 F31.9 is on meds, mood is stable, volunteeri ng which is good for her, in therapy and doing a voluntary day program [id number] Idalmis nicolas MD Main Office [address] [address] [place] [address] 10/30/2016 09:38:36 10/30/2016 10:12:18 Needs influenza immunization 882512788 Z23 Hypothyroidism 54065831 E03.9 pt is on meds and takes them regularly, due for recheck of level Asthma 947015690 J45.90 9 asthma is controlled . continue meds Bipolar I disorder 49205 6008 F31.9 is taking meds regularly, med provider will be changing and pt is due for a level and she will call and get an order for a level and who her next med provider will be [id number] Idalmis nicolas MD Main Office [address] [address] [place] [address] 11/23/2016 12:49:42 11/23/2016 13:32:00 Dysfunctional uterine bleeding 53279766 N93.8 see hx, due for pap but will refer to ob/gyn physician due to DUB, may need treatment with provera, pt with depression should tell ob/gyn physician provider this, Backache 914078775 M54.9 use motrin as needed Asthma 006055578 J45.90 9 asthma is controlled . 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 Bipolar I disorder 07691 6008 F31.9 doing very well [id number] Idalmis nicolas MD Main Office [address] [address] [place] [address] 05/16/2017 10:22:08 05/16/2017 11:05:23 Hypothyroidism 05118400 E03.9 off meds for 2 weeks, restart and check level in 2 months Hyperhidrosis 544944649 R61 wrote down instructio ns for pt to take 3 days in a row, then change to 2 times a week and use regular deodorant too Asthma 390625470 J45.90 9 asthma is controlled . Bipolar I disorder 77388 6008 F31.9 doing very well [id number] Johanne Quinonez [facility] Main Office [address] [facility] [address] [place] [address] 06/01/2017 15:02:22 06/01/2017 15:37:39 Hypothyroidism 52114446 E03.9 Last TSH 6.65, will increase levothyrox ine to 37.5mcg daily. new rx providd. she has lab orders and will have them checked in 4-6 weeks. Contusion of forearm 398 02748 S50.11XA small contusion, improving. Bipolar I disorder 24301 6008 F31.9 Recent partial hospitaliz ation x 2 weeks, discharged today, is feeling better and looking forward to her [place] vacation starting on sunday. [id number] Johanne Quinonez [facility] Main Office [address] [address] [place] [address] 07/27/2017 13:51:39 07/27/2017 14:17:38 Horse bite wound 656933171 W55.11XA Healing well, currently on clinda based on culture results. she is taking a probiotic, eating yogurt, instructed to eat 20 mins prior to abx. Call or return for any concerns or worsening. Open wound of abdominal wall 810189822 S31.100A [id number] Josee Casillas MD Main Office [address] [address] [place] [address] 12/04/2017 11:06:41 12/04/2017 11:40:34 Needs influenza immunization 158042955 Z23 [id number] Izaiah Prajapati MD Main Office [address] [address] [place] [address] 12/14/2017 15:10:05 12/14/2017 16:03:05 Seborrheic dermatitis of scalp 264114314 L21.0 Seborrheic dermatitis 50 542847 L21.9 Will cover initially for both fungal and bacterial etiologies with low potency steroid for inflammati on. Less likely psoriasis but if persistent /worse will need derm referral. Impetigo 99505561 L01.00 [id number] Idalmis nicolas MD Main Office [address] [facility] [address] [facility] [place] [address] 04/03/2018 13:53:17 04/03/2018 14:54:27 Asthma 405167986 J45.909 Refilled pro air to use prn Acute otitis media 18594 03 H66.92 Advise to use otc pain [...] any dizziness or chest discomfort . Eruption 456228384 R21 Does not appear to be shingles, infection or coxsackie virus at this time. Will use desonide bid (has this at home). Call if rash not improving. Likely contact dermatitis vs eczema. 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 Medication monitoring 39 5782721 Z51.81 needs EKG due to meds for bipolar Impacted c erumen of bilateral ears [id number] 749736 H61.23 soak and lavage today . canals clear upon discharge Asthma 828948580 J45.90 9 asthma is controlled . 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 Encouraged less carbs and increased exercise. Labs are normal, will check fasting BS with next labs Hypothyroidism 74392828 E03.9 TSh trending up , now close to 10. Will gradually increase med alternatin g 1 with 1.5 of levothyrox ine daily. Check TSH 6 weeks Bipolar I disorder 21563 6008 F31.9 pt doing better continue meds listed and will call therapist if not doing well. Follows with current mental health providers. [id number] Izaiah Prajapati MD Main Office [address] [address] [place] [address] 12/20/2018 14:53:53 12/20/2018 15:58:11 Lumbar radiculopathy 101147892 M54.16 start medrol today and PT alan next week, TC#3 sparingly for pain, supplement with otc meds. Pt aware no refills on pain med. Rest but change position and walk frequently . Stretching at home. Call or ED if acutely worse or any bowel/blad shona sx. Followup in a few weeks. [id number] Izaiah Prajapati MD Main Office [address] [facility] [address] [place] [address] 01/10/2019 13:55:04 01/10/2019 14:39:13 Low back pain 270663776 M54.5 Continue PT for another 4-6 weeks, continue home exercises Acute back pain with sciatica 407752345 M54.42 use mobic for a week then prn if still having pain. If not better in 4-6 weeks, consider imaging. [id number] Idalmis nicolas MD Main Office [address] [address] [place] [address] 01/24/2019 10:34:24 01/24/2019 10:53:58 [id number] Idalmis nicolas MD Main Office [address] [address] [place] [address] 08/04/2019 13:56:48 08/04/2019 15:29:46 Impacted cerumen 82755635 H61.23 removed today, right canal still red, distally has some ? soft wax 7-8 oclock, ? cholesteat german[place] will recheck in 2 weeks, no water in right ear. Call if any pain or changes in ear or hearing. [id number] Idalmis nicolas MD Main Office [address] [address] [place] [address] 08/18/2019 13:46:56 08/18/2019 14:21:42 Serous otitis media 39350386 H65.91 steam, flonase, keep hydrated, ENT if not better. Cannot take oral steroids, makes her manic. [id number] Idalmis nicolas MD Main Office [address] [address] [place] [address] 09/12/2019 13:16:23 09/12/2019 14:24:04 Adult health examination 322110372 Z00.00 doing pretty well, keeping active, misses working with the horses but sees them, more positive than in the past Screening for malignant neoplasm of breast 702280669 Z12.39 pt to set up first mammogram Bipolar I disorder 93380 6008 F31.9 doing very well, will get orer from psychiatry for a lithium level Hypothyroidism 70554642 E03.9 get thyroid test Eczema 06363088 L30.9 eyebrows, ears tx as below Psoriasis of scalp 88355 8008 L40.9 Screening for malignant neoplasm of cervix 621296000 Z12.4 pt to make appt [id number] Idalmis nicolas MD [facility] [address] [facility] [address] [place] [address] 10/02/2019 06:24:57 10/06/2019 09:11:51 Hypothyroidism 55753789 E03.9 elevated TSH ordered by psych, will increase dose and recheck in 6 weeks. Bipolar I disorder 48054 6008 F31.9 doing well, labs by psychiatry , will talk with pharmacist how to take the thyroid and lithium levels so they do not interfere with each other Mild inter mittent asthma 458507122 J45.20 stable continue meds [id number] Idalmis nicolas MD [facility] [address] [facility] [address] [facility] [place] [address] 10/16/2019 08:37:38 10/16/2019 11:49:29 Hypothyroidism 07489415 E03.9 thyroid dose was increased recently but now pt does not feel well. plan is to have pt recheck thyroid level today, she is taking it midday a few hours after lithium,sh e had asked the pharmacist for suggestion , so this is different than how she took it in the past Bipolar I disorder 46474 6008 F31.9 feels very emotional Not grounded . is working with therapist, no suicidal plans but has some thoughts, feels safe and promises she can keep herself safe, work with counselor [id number] Idalmis nicolas MD [facility] [address] [facility] [address] [place] [address] 11/28/2019 12:54:48 12/02/2019 10:41:25 Seborrheic dermatitis of scalp 234542491 L21.0 Use Tgel hampoo a few time a week and then put lotion on affected areas bid for a week, then use prn only, call if not helping and would do dermatolog y referral [id number] Idalmis nicolas MD Main Office [address] [address] 03/18/2020 15:02:30 03/18/2020 16:15:08 Eczema 25975017 L30.9 on MTX, improving, pt knows to take extra precaution s against Covid infectin Anxiety state 802318708 F41.1 on meds, sees counselor hard 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 which 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 Bipolar I disorder 15881 6008 F31.9 a bit of a struggle but doing ok, more resources, Mild inter mittent asthma 014640079 J45.20 stable continue meds Hypothyroidism 42315239 E03.9 continue meds [id number] Idalmis nicolas MD Main Office [address] [address] 07/14/2020 13:22:37 07/14/2020 13:57:55 Eczema 20838047 L30.9 on MTX, improving, pt knows to take extra precaution s against Covid infection Mild inter mittent asthma 796897601 J45.20 stable continue meds Hypothyroidism 58014949 E03.9 continue meds Macromastia 709396118 N6 2 pain in shoulders and upper back and rashes under breasts considerin g breast reduction, will refer to plastic surgeon Screening for malignant neoplasm of breast 982085995 Z12.39 pt to set up first mammogram Bipolar I disorder 15048 6008 F31.9 a bit of a struggle but doing ok, more resources, [id number] Reyes Fine MD Main Office [address] [address] 08/27/2020 10:24:55 08/27/2020 12:15:05 Impacted cerumen 19457048 H61.23 Cerumen removed in Right.Left sided aborted after removal of some wax in the exterior ear as it looked like patient caused trauma to her ear drum from q-tip use. Mild inter mittent asthma 240479831 J45.20 Notes under controll with inhalers, needed refills. Acute otitis media 70452 03 H66.92 After wax removal patient notes improvemen t in hearing denies vomiting, dizziness, or facial weakness, fever. Will provide ear drops advised injured ear drums can heal on its own thus will f/u in 2 weeks to reassess. Will refer to ent. Perforatio n of tympanic membrane 44409590 H72.92 [id number] Idalmis nicolas MD Main Office [address] [facility] 207 [facility] [place] [address] 12/22/2020 10:51:31 12/22/2020 11:39:16 Adult health examination 460953898 Z00.00 doing pretty well, keeping active, in counseling weekly and meds by psychiatry , anxiety due to upcoming skin lesion resection. 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 Hypothyroidism 82495821 E03.9 continue meds check labs Mild inter mittent asthma 694222618 J45.20 stable continue meds Needs infl uenza immunization 098465070 Z23 Lesion of skin of face 3646389139 [address] Tobin with malignancy getting removed 01/03 nervous [id number] Idalmis nicolas MD Main Office [address] [facility] [address] [facility] [place] [address] 12/01/2021 09:39:44 12/01/2021 10:21:17 Hypothyroidism 20234330 E03.9 check level and continue med Needs infl uenza immunization 308658606 Z23 Bipolar I disorder 06068 6008 F31.9 a bit of a struggle but doing ok, in counseling and sees psychiatry and 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 She had the visit with Dr Ny and contracts for safety, has crisis numbers, family and therapist support. Does not feel the need for ED evaluation . Dr Ny and patient comforatab le with the plan. Reschedule AWV later. [id number] Idalmis nicolas MD Main Office [address] [facility] 207 [place] [address] 04/05/2022 14:54:10 04/05/2022 15:57:29 Adult health examination 204739678 Z00.00 Pt is in good general health with mental health stable and improved. 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 Social and family history reviewed. Immunizati ons reviewed, advised annual flu shot which she had. She is not up to date on dental and eye providers, will make appt. mammogram utd, ob/gyn physician utd Reviewed diet and exercise. Hypothyroidism 70474049 E03.9 recent tsh normal Mild inter mittent asthma 817815442 J45.20 renew med, uses prn Bipolar I disorder 03646 6008 F31.9 pt doing better continue meds listed and will call therapist if not doing well. Follows with current mental health providers. 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 0 pt gets meds for bipolar from Dr Porfirio Hearn in [facility] heartrate 107, EKG with NSR, normal QT interval. Hypothyroidism 67821264 E03.9 continue med [id number] RENUKA RAMÍREZ MD Main Office [address] [address] [place] [address] 06/16/2022 12:51:46 06/16/2022 13:43:42 Laceration of finger 101021874 S61.210A - pt had 8 sutures placed on right second digit after laceration with veggie cutter- 2 sutures were removed today as it was noted as the sutures were removed patient skin had not completely healed, will remove rest 12-14 day usman- RTC in 2 days Transition of care from emergency department to self-care 3814583198 19707 Z76.89 - presented to urgent care on 06/06 after laceration of right second and third digits [id number] RENUKA RAMÍREZ MD Main Office [address] [place] [address] [place] [address] 06/19/2022 09:20:48 06/19/2022 10:05:55 Laceration of finger 049892411 S61.210D - pt had 8 sutures placed on right second digit after laceration with veggie cutter- 2 sutures were removed on 06/16- other 6 suture were removed today on 06/19- pt does have one small area were the laceration is still prominent therefore wound precaution s were given- RTC if patient note warm, tenderness , redness or discharge [id number] Idalmis nicolas MD Main Office [address] [place] [address] [place] [address] 06/30/2022 15:53:21 06/30/2022 16:22:25 Injury of finger 83285181 S69.91XD see hpi and PE. 3rd finger cauterized in UC still with balck hard cover and 2nd healing after sutures. will refer to plastic surgery to address the 3rd finger, asked for appt early next week. 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- [facility] Bipolar I disorder 87932 6008 F31.9 - follows with psychiatry every 3 months, as a new provider started seeing one year ago- currently on quetiapine 800mg QD and lithium 600mg BID- [facility] Mild inter mittent asthma 391936771 J45.20 - pt takes albuterol pump has needed (will go months without using it)- take singular 10mg daily Injury of finger 7492643 8 S69.91XD - second digit all sutures removed, wound still has dried blood, healing very slow- third finger still black with very little improvemen t since 06/06- pt was referred to plastics> [facility] cannot see patient until after December, called to push date forward, request refused> currently looking for other plastic surgeons in the area- ED precaution s given- RTC in one month for continued follow-up Psoriasis 6528394 L40.9 - currently on humira injections which provides relief [id number] RENUKA RAMÍREZ MD Main Office [address] [facility] [address] [facility] [place] [address] 07/14/2022 13:23:31 07/14/2022 14:05:46 Injury of finger 00892903 S69.91XD - improving- second digit all sutures removed, wound still has dried blood, healing very slow- third finger cautrized wound is healing, scabbing is regressing - pt was referred to plastics> [facility] cannot see patient until after December, [...] for healing.- wound care referral also provided [id number] RENUKA RAMÍREZ MD Main Office [address] [facility] [address] [facility] [place] [address] 08/17/2022 11:20:11 08/17/2022 12:07:00 Injury of finger 27676432 S69.91XD - improving- second digit: at today visit noted that piece of skin that was originally sutured is no longer in place. The skin was removed. Well-heale d tissue noted underneath .- third finger which was cauterized is now healed- pt was referred to plastics> [facility] cannot see patient until after December, [...] to ensure second digit has fully healed [id number] Josee Casillas MD Main Office [address] [facility] [address] [place] [address] 08/29/2022 12:52:30 08/29/2022 13:46:55 Impacted cerumen of bilateral ears 0607784737 930441 H61.23 Acute righ t otitis media 571342871 H66.91 [id number] RENUKA RAMÍREZ MD Main Office [address] [facility] [address] [place] [address] 09/28/2022 14:37:07 09/28/2022 15:09:58 Injury of finger 58586772 S69.91XD - now resolved, second and third digit have completely healed- pt was referred to plastics> [facility] cannot see patient until after December, [...] 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 C) Vaccines:I nfluenza: not this yearTdAP: 06/06/2022Z felix: due at 40CBW24: due at 24EUJT64: 02/15/2015 PCV20:PCV1 5:COVID: , 05/17/2020, 01/11/2021 , 12/07/2021 D) Routine blood work orderedE) Updated patient's history RTC in one year for annual exam or sooner if any acute complaints Fatigue 57224389 R53.83 Z00.00 Hyperlipidemia 91705473 E78.5 Z00.00 Hepatitis C screening 41 1540068 Z11.59 HIV screening 445463409 Z11.4 Anxiety state 659611585 F41.1 - NIA-7 score of 21- currently [...] filled by [facility] Bipolar I disorder 70245 6008 F31.9 - PHQ-9 score score of [...] s given- RTC in 4 weeks Hypothyroidism 22018911 E03.9 - will check levels- c/w levothyrox ine 100mcg QD Mild inter mittent asthma 377959154 J45.20 - pt takes albuterol pump has needed (will go months without using it)- take singular 10mg daily Vitamin D deficiency 347 97773 E55.9 Irritable bowel syndrome with diarrhea 118729317 K58.0 - pt is currently taking dicyclomin e 10mg QID as needed Psoriasis 3550942 L40.9 - currently on humira injections which provides relief Tachycardia 9546872 R00. 0 - HR today was 120- EKG has a lot of artifact but sinus tachycardi a with HR of 109- pt was started on metoprolol succinate ER 25mg- most likely due to elevated anxiety Screening for malignant neoplasm of cervix 983113422 Z12.4 Body mass index 30+ - obesity 498158997 E66.9 Z68.31 - BMI of 31.5- Cut [...] minutes cumulative of moderate exercise erin ferro [id number] RENUKA RAMÍREZ MD Main Office [address] [address] [place] [address] 04/26/2023 14:37:13 04/26/2023 15:09:02 Hepatitis C antibody detected 232906843 Z86.19 - ordered hepatic function panel- ordered confirmato ry testing testing by checking viral load and genotype- if positive will send to GI Acute kidney injury 1466 9001 N17.9 - pt advised to remain hydrated- continue to avoid NSAIDs- repeat blood work ordered [id number] RENUKA RAMÍREZ MD Main Office [address] [place] [address] 05/17/2023 13:49:04 05/17/2023 14:29:35 Anxiety state 898321319 F41.1 - NIA-7 score of 17- currently on lorazepam 1mg BID given by [facility] which she follows every 3 months> pt advised not to take the medication with clonazepam 0.5mg- counsellin g provided, 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 0 - HR today was 109- EKG done on 04/12 has a lot of artifact but sinus tachycardi a with HR of 109- c/w metoprolol succinate ER 25mg- ordered US echo- pt referred to cardiology for holter monitor- [facility] will also be adjusting meds to help improve HR [id number] RENUKA RAMÍREZ MD Main Office [address] [place] [address] 08/13/2023 14:37:29 08/13/2023 15:13:08 Tachycardia 8818930 R00.0 - now resolved- HR today was [...] will request note Vitamin D deficiency 347 08490 E55.9 - pt noted to have elevated level on 04/17/2023 -> 68- pt was advised to start back on 1000 IU to prevent levels from going too low> pt was advised this when informed of blood however she did not read message properly Psoriasis 5081418 L40.9 - currently on cyltezo injections which provides relief- pt does have an area at the back of left ear were the psoriasis is worse, pt provided with clobetasol cream and advised to moisturise [id number] RENUKA RAMÍREZ MD Main Office [address] [facility] [address] [facility] [place] [address] 12/21/2023 15:15:32 12/21/2023 16:02:18 Acute kidney injury [id number] N17.9 - pt advised to remain hydrated- continue to avoid NSAIDs- repeat blood work ordered Anxiety state [id number] F41.1 - NIA-7 score of 8- lorazepam as been stopped and switched to clonazepam - counsellin g provided, 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- [facility] Bipolar I disorder [id number] F31.9 - improved- PHQ-9 score score of 6 with elevated NIA-7 score 8- pt has completed day-progra m at [facility]> clonazepam 0.5mg as added to regimen- pt will be following with psychiatry over the next few month to optimize her meds as it could be the cause of the tachycardi a- currently on quetiapine 800mg QD and lithium 600mg BID- medication s filled by psychiatri Hypothyroidism [id number] E03.9 - will check levels- c/w levothyrox ine 100mcg QD Mild inter mittent asthma [id number] J45.20 - pt takes albuterol pump has needed (will go months without using it)- take singular 10mg daily Tachycardia [id number] R00. 0 - now resolved- HR today [...] will request note Needs infl uenza immunization [id number] Z23 19 YEARS AND OLDER ONLY Tremor [id number] R25.1 - ordered vitamin b12 and folate- ordered MRI of the brain for further evaluation - pt psychiatri st started patient on propanolol ER 60mg Urinary incontinence 165 570421 R32 - pt has been following with urology, advised to given them a call for follow-up Numbness of hand [id number] 04 R20.0 - occurred after incident veggie slicer- located on right hand on second and third digit- pt having neuropathi c pain and temperatur e sensitivit ies- referred to hand surgery for second option however feel that pain is from severed never endings and may permanent [id number] RENUKA RAMÍREZ MD Main Office [address] [facility] [address] [place] [address] 01/01/2024 09:20:34 01/01/2024 09:55:35 Transition of care from emergency department to self-care [id number] 92676 Z76.89 - presented to urgent care on 12/23 for cellulitis of lower extremity- reviewed notes Cellulitis [id number] L03 .90 - well healing- no need for repeat antibiotic treatment at this time- wound culture grew Beta hemolytic Streptococ cus, group B which is susceptibl e to keflex- pt advised to keep area clean and dry- return precaution s were discussed [id number] RENUKA RAMÍREZ MD Main Office [address] [facility] [address] [facility] [place] [address] 03/24/2024 14:33:30 03/24/2024 15:06:31 Acute kidney injury [id number] N17.9 - creatine 1.1 and GFR of 58- pt advised to remain hydrated- continue to avoid NSAIDs- repeat blood work ordered Hypothyroidism 49006186 E03.9 - normal levels- will check levels- c/w levothyrox ine 100mcg QD Tachycardia 8518400 R00. 0 - now resolved- HR today [...] control with metoprolol at the time Tremor [id number] R25.1 - normal vitamin b12- MRI of [...] with her psychiatri st Urinary incontinence 165 119112 R32 - pt has been following with urology, advised to given them a call for follow-up Numbness of hand 7929787 04 R20.0 - occurred after incident veggie slicer- located on right hand on second and third digit- pt having neuropathi c pain and temperatur e sensitivit ies- pt is currently following with hand surgery [id number] Josee Casillas MD Main Office [address] [facility] [address] [facility] [place] [address] 04/15/2024 13:36:44 04/15/2024 14:47:23 Impacted cerumen of bilateral ears [id number] 779812 H61.23 Bilateral cerumen impaction , recurrent. Recommend to avoid using q-tip. Ears were irrigated with large amount of cerumen removed , but still with residual amount left behind. Recom. to use Debrox for 3-5 days. Recom ear irrigation every 6-8 m. [id number] RENUKA RAMÍREZ MD Main Office [address] [facility] [address] [facility] [place] [address] 06/30/2024 13:04:23 06/30/2024 14:03:35 Acute kidney injury [id number] N17.9 - creatine 1.1 and GFR of 58- pt advised to remain hydrated- continue to avoid NSAIDs- repeat blood work ordered Hypothyroidism 38558227 E03.9 - normal levels- c/w levothyrox ine 100mcg QD Tachycardia 5433216 R00. 0 - elevated- HR today was 108- EKG done on 04/12 has a lot of artifact but sinus tachycardi a with HR of 109- EKG done 08/12 showed NSR with HR of 87- pt is currently unsure of her medication regimen, might be on propanolol - US echo done on 06/2023 is normal- pt was seen cardiology on 06/29/2023 -> no testing was done as HR was under control with metoprolol at the time Tremor [id number] R25.1 - normal vitamin b12- MRI of the brain of brain is normal- pt psychiatri st started patient on propanolol , pt unsure if she is actually taking this Urinary incontinence 165 742855 R32 - pt has been following with urology, advised to given them a call for follow-up Numbness of hand 4387385 04 R20.0 - occurred after incident veggie slicer- located on right hand on second and third digit- pt having neuropathi c pain and temperatur e sensitivit ies- pt is currently following with hand surgery> will be starting physical therapy to help with sensation Bipolar I disorder 39762 6008 F31.9 - worsening- PHQ-9 score score of 16 with elevated NIA-7 score 14- currently undergoing day-progra m at [facility]- will be switching off quetiapine to lithium- medication s filled by psychiatrlucie [facility]- RTC in 3 weeks as patient should complete program by then and to check for improvemen t Irritable bowel syndrome with diarrhea [id number] K58.0 - pt is currently taking dicyclomin e 10mg QID as needed Mild inter mittent asthma 973911338 J45.20 - pt takes albuterol pump has needed (will go months without using it)- take singular 10mg daily Hyperlipidemia 21355740 E78.5 Z00.00 - ASCVD score of 0.6%- lipid panel 03/2023: cholestero l-205, triglyceri de-156, HDL-64, LDL-110- ordered repeat level Pt counselled on:- Eat a heart-heal thy diet - Choose healthy fats. Avoid saturated fats that are found primarily in red meat, card, sausage, and full-fat dairy products. Advised to choose lean proteins like chicken, turkey, and fish when possible. Switch to low-fat or fat-free dairy. And use monounsatu rated fats like olive and canola oil for cooking. - Cut out the trans fats. Trans fats are found in fried food and processed foods, like cookies, crackers, and other snacks. - Eat more omega-3s. Counseled on eating more fish, including salmon, mackerel, nicole ,nuts and seeds, like walnuts and flax seeds. - Increase your fiber intake. By eating more oats, brain, fruits, beans, and vegetables , can lower your LDL cholestero l levels. - Eat more fruits and veggies. General ex amination of patient [id number] Z00.00 Health Maintenanc e FemaleA) Patient was counseled on healthy diet, exercise and nutrition due to BMI of 30.5 B) ScreeningL ast Mammogram: start at age 50 stop at 74Date: 06/11/2024R esult: BIRADS-1Ne xt: 05/2025 Last Pap smear: start at age 21 to age 65Date: 12/27/2016 Results: HPV negative, no atypical cellsNext: DUE (pt advised to follow with ob/gyn physician) Last Colonoscop y: start at age 45-75Date: Result: Next: not yet of age Last DEXA scan:Date: due at 65Result: ??? C) Vaccines:I nfluenza: 12/21/2023 TdAP: 06/06/2022Z felix: due at 55WEW96: due at 40QKKG59: 02/15/2015 PCV20:PCV1 5:COVID: , 05/17/2020, 01/11/2021 , 12/07/2021 D) Routine blood work orderedE) Updated patient's history RTC in one year for annual exam or sooner if any acute complaints Screening for malignant neoplasm of cervix [id number] Z12.4 Screening for malignant neoplasm of colon 848309100 Z12.11 Obesity ca used by energy imbalance 856673764 E66.811 E66.09 Z68.30 - BMI of 30.5- Cut down on (limit) fast foods, sweets, [...] or 150 minutes cumulative of moderate exercise recommendfish d. [id number] RENUKA RAMÍREZ MD Main Office [address] [facility] [address] [facility] [place] [address] 07/22/2024 11:20:45 07/22/2024 11:48:16 Bipolar I disorder 147811653 F31.9 - stable and improved- PHQ-9 score score of 11 with elevated NIA-7 score 8- completed day program at [facility]- will be switching off quetiapine to lithium> pt currently unsure of her medication list- medication s filled by psychiatri st- no longer having SI/HI Health Concerns Section Related Observation LastModified by Organization Detai ls LastModified Time None Recorded Concern Status LastModified by Organization Details LastModified Time None Recorded Advance Directives Directive N: Payers Insurance Date Sequence Insurance Name Policy Number Policy Scott Covered Member ID Scott Member ID Guarantor Name 07/22/2024 1 [place] [employer] Crystal Chapa [id number] Crystal Codie Chapa 07/22/2024 2 [place] [facility] Crystal A Eduard [id number] Crystal Codie Eduard Notes Date Note Type Note Provider Name and Address Organization Details Recorded Time text/html Emergency Department Follow-Up RecordReported bypatient.Discharge Informationname of ED Local Urgent Care; emergency department discharge date: (Please enter in format '//YYYY') (12/24/2023); date of follow-up phone call: (Please enter in format '/DD/YYYY') (01/01/2024)Notes:Pt underwent I and D however there was not a lot drainage. A wound culture was taken which showed Beta hemolytic Streptococcus, group B. Pt given keflex. Crystal Chapa is a 43 year old F who presented to the clinic for urgent care follow-up. Pt was seen on 12/24/2023 for cellulitis of the left thigh. Pt has no completed keflex. RENUKA RAMÍREZ MD [address] [address], [place], [address], [facility] 01/01/2024 10:00:18 5 text/html IncontinenceReported bypatient.Quality:urge incontinence Severity:mild Duration:intermittent Context:anxiety Crystal Chapa is a 43 year old F who presented to the clinic for follow-up on her chronic conditions. Patient has been following with a new [employer]ING OPERATOR for her psychiatrist medications. Pt started a [...] MRI has been ordered. RENUKA RAMÍREZ MD [address] [address], [place], [address], [facility] 03/24/2024 15:07:59 5 text/html 43 year old female c/o 5 day onset of bilateral ear ache and decreased hearing. NO viral symptoms, denies fever, chills. H/o cerumen impaction in the past. Uses q-tips. Estrellita Pitt PA-C [address] [address], [place], [address], [facility] 04/15/2024 15:10:36 5 text/html Medicare Annual Wellness VisitReported bypatient.Diet and Nutrition:healthy diet Fracture Risk:no history of fractures Physical Activity:exercises on a regular basis (working on walking); recent increase in physical activity; discussed weightbearing activities; discussed exercise habits Depression Risk:no thoughts of suicide;feels sad, empty, or tearful;loss of interest in activities;sleep disturbances or insomnia;loss of energy;history of depression; feeling better now, in therapy and has meds at a good place Orientation:no disorientation to time; no disorientation to date; no disorientation to place Concentration and Memory:no decreased concentrating ability; no memory lapses or loss Speech/Motor difficulties:no speech difficulties; no difficulty expressing formulated concepts; no difficulty with fine manipulative tasks; no difficulty writing/copying; no slowed reaction time; does not knock things over when trying to pick them up Hearing:no loss of hearing Vision:no vision problems Activities of Daily Living:able to bathe with limited or no assistance; able to contol urination and bowels; able to dress with limited or no assistance; able to feed self with limited or no assistance; able to get out of chair or bed with limited or no assistance; able to groom with limited or no assistance; able to toilet with limited or no assistance Instrumental Activities of Daily Living:able to do house work with limited or no assistance; able to grocery shop with limited or no assistance; able to manage medications with limited or no assistance; able to manage money with limited or no assistance; able to prepare meals with limited or no assistance; able to use the phone with limited or no assistance Falls Risk Assessment:no frequent falls while walking; no fall in the past year; no fall since last visit; no dizziness/vertigo Home Safety:no unsafe stairs; no unsafe gas appliances; working smoke/CO detectors; wears protective head gear for biking/high velocity; use of seatbelts; no vision or hearing loss while driving; good lighting in the home Crystal Chapa is a 44 year old F who presented to the clinic for her annual exam. Pt is not currently in a good state of mind. Complaints: currently in very bad depression, following with day program. has been going for 3 weeks. is having all her meds changed. Is not using ASA.OTC/Herbal supplements use: acetyl L-carnitine Gynecologic HistoryLMP: 06/15/2024Menstrual cycle lasts 7-8 days, without spotting/clothsMenstrual cycle: monthlySexually active: noContraception: abstinenceDenies cysts, stds, fibroids, abnormal pap smearsWould like patient to start progesterone Obstetric HistoryGravida: 0Para: 0AB: 0Complications: Drug use: neverEtoh use: does not drinktobacco use: neverspf/derm: Dental: has not been in some timeEye: has not been in some timeDiet: regularActivity: none RENUKA RAMÍREZ MD [address], [address], [facility] 06/30/2024 14:29:39 5 text/html Anxiety/DepressionReporte d bypatient.Quality:symptom s improved;mood worse;increased anxiety Severity:denies suicidal ideations; able to maintain relationships; does not interfere with activities of daily living Duration:stablizing Onset/Timing:still present Context:no major life stressors Associated Symptoms:denies homicidal ideations; no significant weight gain; no significant weight loss; no visual/auditory hallucinations; no delusions; appetite good; energy good; no apathy; maintaining functionality;anxiety Crystal Chapa is a 44 year old F who presented to the clinic for follow-up on her anxiety and depression. When patient was seen on 06/30 she was undergoing a day program. Has completed this. Pt is feeling better however continues to have medicine change. Continues to follow with psychiatry. Will start seeing for once a week. Also seeing therapy once a week and also in a DBT group. RENUKA RAMÍREZ MD [address] [address], [place], [address], [facility] 07/22/2024 11:50:24 OBGyn Episode No OBEpisode recorded.
[2024-08-07 10:45] LABS: Appearance Urine Clear; Color Urine Yellow; Glucose Urine UA Negative (Negative); Leukocyte Esterase Urine Negative (Negative); Nitrite Urine Negative (Negative); PH 7.5 (5.0-9.0); Specific Gravity - Urine <= 1.005 (1.005-1.025); Urine Blood Negative (Negative); Urine Ketones Negative (Negative); Urine Protein Negative (Neg-Trace)
[2024-08-07 11:05] LABS: Osmolality, Serum 294 mosm/kg (281-305)
[2024-08-07 11:28] LABS: Lithium 0.58 mmol/L (0.60-1.20)
[2024-08-07 11:44] LABS: Anion Gap 11 (12-20); Blood Urea Nitrogen 9 mg/dL (9-16); Calcium 9.4 mg/dL (8.4-10.2); Carbon Dioxide 24 mmol/L (22-29); Chloride 110 mmol/L (96-108); Cholesterol 177 mg/dL (<200); Estimated Glomerular Filt Rate 54; Free T4 (Free Thyroxine) 1.03 ng/dL (0.71-1.85); Glucose Fasting 98 mg/dL (60-99); HDL Cholesterol 47 mg/dL (>40); LDL Cholesterol Calculated 105 mg/dL (<100); Potassium 3.5 mmol/L (3.3-5.1); Sodium 141 mmol/L (135-145); Thyroid Stimulating Hormone 0.18 uIU/mL (0.32-4.0); Triglycerides 127 mg/dL (<150)
[2024-08-07 11:50] LABS: Creatinine Urine 41.56 mg/dL
[2024-08-07 11:52] LABS: Osmolality Urine 152 mosm/kg (373-1093)
== END ==
LOC: HO.CARD 09:10
PROVIDERS: PCP Student in an Organized Health Care Education/Training Program; Visit Provider Psychiatry & Neurology Psychiatry
DX: N25.1 Nephrogenic diabetes insipidus (principal)
CPT/HCPCS: 36415; 80048; 80061; 80178; 81003; 82570; 83930; 83935; 84300; 84439; 84443; 93005

== ENCOUNTER → 2024-08-07 09:16 | Outpatient (BNV) | payer MEDICARE, MEDICAID, SELFPAY | PROVIDERS: PCP Student in an Organized Health Care Education/Training Program; Visit Provider Internal Medicine Cardiovascular Disease | DX: Z13.6 Encounter for screening for cardiovascular disorders (principal) | CPT/HCPCS: 93010 ==

== ENCOUNTER 2024-09-23 09:07 | Outpatient (REF) | payer MEDICARE, MEDICAID, SELFPAY ==
[2024-09-23 09:26] LABS: MANUAL DIFF FLAG NO
--- OUTSIDE RECORDS SUMMARY | 2024-09-23 09:27 | XMS_ITS | Clinical Summary ---
Author Organization [facility] Address [address] [place] [address] Care Team Providers Care Emergency Room Nurse Name Role Phone Unavailable Primary Care Provider Unavailabl e Social History Tobacco Use Types Packs/Day Years Used Date Smoking Tobacco: Never Assessed Sex and Gender Information Value Date Recorded Sex Assigned at Not on file Gender Identity Not on file Sexual Orientation Not on file Plan of Treatment Not on file
--- OUTSIDE RECORDS SUMMARY | 2024-09-23 09:27 | XMS_ITS | Clinical Summary ---
Author Organization [facility] Address [address] [place] [address] Phone Care Team Providers Care Materials Scheduler Name Role Phone eRnuka Ramírez MD Primary Care Provider [phone] Allergies Active Allergy Reactions Criticality Noted Date Comments Amoxicillin-Pot Clavulanate Diarrhea 11/27/19 21 C-diff Permethrin Rash 07/02/2024 Medications montelukast (SINGULAIR) 10 mg tablet Take 1 tablet (10 mg total) by mouth. Active QUEtiapine (SEROquel) 400 mg tablet Take 2 tablets (800 mg total) by mouth at bedtime. Active propranoloL (INDERAL) 20 mg tablet Take 1 tablet (20 mg total) by mouth 2 (two) times a day. Active lithium 300 mg tablet Take 1 tablet (300 mg total) by mouth 3 (three) times a day with meals. Active levothyroxine (SYNTHROID, LEVOTHROID) 100 mcg tablet Take 1 tablet (100 mcg total) by mouth 1 (one) time each day before breakfast. Active adalimumab-adbm (Cyltezo,CF,) 40 mg/0.8 mL syringe Inject 0.8 mL (40 mg total) under the skin every 14 (fourteen) days. Active clonazePAM (KlonoPIN) 0.5 mg tablet Take 1 tablet (0.5 mg total) by mouth 2 (two) times a day. Max Daily Amount: 1 mg Active albuterol HFA (PROAIR HFA ; PROVENTIL HFA ; VENTOLIN HFA) 90 mcg/actuation inhaler Inhale 2 puffs by mouth every 6 (six) hours if needed for wheezing. Active polyethylene glycol (Golytely) 236-22.74-6.74 -5.86 gram solution Take 4L by mouth once for one dose. May substitue any PEG. Starting at 6PM the night before your procedure drink 1 8oz glasses at your own pace until you complete half of the gallon. Finish 2nd half of the gallon 5 hours before your procedure. 4000 mL 5 Active bisacodyL (DULCOLAX) 5 mg EC tablet Take 2 tablets by mouth right before beginning bowel prep. See instructions provided by the office 2 tablet 5 Active progesterone (PROMETRIUM) 100 mg capsule TAKE 1 CAPSULE EVERY DAY IN THE MORNING FOR 21 DAYS THEN 7 DAYS OFF Active methylphenidate (METADATE ER) 20 mg ER tablet Take 1 tablet (20 mg total) by mouth 1 (one) time each day in the morning. Active LORazepam (ATIVAN) 1 mg tablet Take 1 tablet (1 mg total) by mouth 2 (two) times a day if needed for anxiety. 5 Active guanFACINE (INTUNIV) 2 mg 24 Hour ER tablet Take 1 tablet (2 mg total) by mouth 1 (one) time each day in the morning. 5 Active diazePAM (VALIUM) 5 mg tablet TAKE 2 TABLETS BY MOUTH AT BEDTIME NEEDED FOR DYSTONIC REACTION Active Vraylar 3 mg capsule TAKE 1 CAPSULE BY MOUTH DAILY FOR DIRECTED 5 Active benztropine (COGENTIN) 0.5 mg tablet TAKE 1 TABLET BY MOUTH 2 TIMES A DAY FOR DYSTONIC REACTION Active Encounters Date Type Department Care Team Description 09/05/2024 1:34 PM EDT Anesthesia Event [facility] Endoscopy [address] [place] [address] Raghu Blandon DO 09/05/2024 1:01 PM EDT - 09/05/2024 11:59 PM EDT Hospital Encounter [facility] End[facility] [address] [place] [id number] Debbie Helm MD Kapplan, Jacob A, CRNA Colon cancer screening Discharge Disposition: Home or Self Care 07/02/2024 Telephone Gastroenterology - [facility] [address] [phone] Debbie Helm MD special procedure from Last 3 Months Surgical History Surgery Date Site/Laterality Comments TONSILLECTOMY Medical History Medical History Date Comments Asthma DX:Asthma Anxiety Bipolar 1 disorder ([facility] V24, [facility] V28) Irritable bowel syndrome Hypothyroid Psoriasis Family History Medical History Relation Name Comments Breast cancer Mother Relation Name Status Comments Mother Social History Tobacco Use Types Packs/Day Years Used Date Smoking Tobacco: Never Smokeless Tobacco: Never Alcohol Use Standard Drinks/Week Comments Never 0 (1 standard drink = 0.6 oz pur e alcohol) Interpersonal Safety Answer Date Record ed Physical Abuse 09/05/2024 Verbal Abuse 09/05/2024 Comments Unknown Sex and Gender Information Value Date Recorded Sex Assigned at Female 07/02/2024 7:42 AM EDT Legal Sex Female 1:03 PM EST Gender Identity Female 07/02/2024 7:42 AM EDT Sexual Orientation Not on file Obstetrics History Last Filed Vital Signs Vital Sign Reading Time Taken Comments Blood Pressure 93/74 09/05/2024 2:13 PM EDT Pulse 74 09/05/2024 2:13 PM EDT Temperature 36.3 C (97.4 F) 09/05/2024 1:53 PM EDT Respiratory Rate 14 09/05/2024 2:13 PM EDT Oxygen Saturation 98% 09/05/2024 2:13 PM EDT Inhaled Oxygen Concentration - - Weight 74.8 kg (165 lb) 08/29/2024 12:00 PM EDT Height 160 cm (5' 3 ) 08/29/2024 12:00 PM EDT Body Mass Index 29.23 08/29/2024 12:00 PM EDT Plan of Treatment Health Maintenance Due Date Last Done Comments Hepatitis A Vaccines (1 of 2 - Risk 2-dose series) 1998 Hepatitis B Vaccines (1 of 3 - 19+ 3-dose series) 1998 Cervical Cancer Screening: Pap Smear 2000 Pneumococcal Vaccine: Pediatrics (0 to 5 Years) and At-Risk Patients (6 to 49 Years) (2 of 2 - PCV) 02/16/2016 02/15/2015 COVID-19 Vaccine ( season) 2023 12/07/2021, 01/11/2021, 05/17/2020, Additional history exists Depression Screening 02/20/2024 Cholesterol Screening (Lipid Panel) 07/02/2024 HIV Screening 07/02/2024 Hepatitis C Screening 07/02/2024 Medicare Annual Wellness Visit 07/02/2024 Social Influencers of Health Screening 07/02/2024 Influenza Vaccine (#1) 2024 , 11/27/2022, 12/01/2021, Additional history exists Breast Cancer Screening 05/15/2026 05/15/2024 DTaP,Tdap,and Td Vaccines (5 - Td or Tdap) 06/06/2032 06/06/2022, 02/04/2016, 02/03/2014, Additional history exists Colorectal Cancer Screening: Colonoscopy 09/05/2034 09/05/2024 Meningococcal ACWY Vaccine Aged Out 08/24/2005 N o longer eligible based on patient's age to complete this topic HIB Vaccines Aged Out No longer eligi ble based on patient's age to complete this topic HPV Vaccines Aged Out No longer eligi ble based on patient's age to complete this topic IPV Vaccines Aged Out No longer eligi ble based on patient's age to complete this topic MMR Vaccines Aged Out No longer eligi ble based on patient's age to complete this topic Meningococcal B Vaccine Aged Out No l onger eligible based on patient's age to complete this topic RSV Immunization Patients Under 20 months Aged Out No longer eligible based on patient's age to complete this topic Varicella Vaccines Aged Out No longer eligible based on patient's age to complete this topic Procedures Procedure Name Priority Date/Time Associated Diagnosis Comments COLONOSCOPY Routine 09/05/2024 1:52 PM EDT Colon cancer screening POC PREGANCY, URINE SCREENING Routine 09/05/2024 1:19 PM EDT from Last 3 Months Results * COLONOSCOPY Anesthesia - MAC; [facility] ENDOSCOPY (09/05/2024 1:52 PM EDT) Anatomical Region Laterality Modality Endoscopy 09/05/2024 1:39 PM EDT Impressions 09/05/2024 1:55 PM EDT - The examined portion of the ileum was normal. - The entire examined colon is normal on direct and retroflexion views. - No specimens collected. Recommendation: - Repeat colonoscopy in 10 years for screening purposes. Narrative 09/05/2024 1:55 PM EDT [facility] GI Patient Name: Crystal Roblero Procedure Date: 09/05/2024 1:39 PM Date of : 1980 Age: 44 Gender: Female Note Status: Finalized Attending MD: Debbie Helm MD, Procedure Date No Time: 09/05/2024 Procedure: Colonoscopy Indications: Screening for colorectal malignant neoplasm Providers: Debbie Helm MD Referring MD: Renuka Ramírez MD Medicines: Propofol per Anesthesia Complications: No immediate complications. Estimated Blood Loss: Estimated blood loss: none. Procedure: Pre-Anesthesia Assessment: - ASA Grade Assessment: II - A patient with mild systemic disease. After I obtained informed consent, the scope was passed under direct vision. Throughout the procedure, the patient's blood pressure, pulse, and oxygen saturations were monitored continuously.The Colonoscope was introduced through the anus and advanced to the terminal ileum. The colonoscopy was performed without difficulty. The patient tolerated the procedure well. The quality of the bowel preparation was good. Findings: The perianal and digital rectal examinations were normal. The terminal ileum appeared normal. The entire examined colon appeared normal on direct and retroflexion views. Procedure Code(s): --- Professional --- G0121, Colorectal cancer screening; colonoscopy on individual not meeting criteria for high risk Diagnosis Code(s): --- Professional --- Z12.11, Encounter for screening for malignant neoplasm of colon CPT copyright 2020 [employer]. All rights reserved. The codes documented in this report are preliminary and upon product marketing executive review may be revised to meet current compliance requirements. Debbie Helm MD 09/05/2024 1:55:02 PM This report has been signed electronically.Debbie Helm MD Number of Addenda: 0 Note Initiated On: 09/05/2024 1:39 PM Scope In: Scope Out: Endoscopy Department at [facility] - [address] [place] [id number] Procedure Note Debbie Helm MD - 09/05/2024 [facility] GI Patient Name: Crystal Roblero Procedure Date: 09/05/2024 1:39 PM Date of : 1980 Age: 44 Gender: Female Note Status: Finalized Attending MD: Debbie Helm MD, Procedure Date No Time: 09/05/2024 Procedure: Colonoscopy Indications: Screening for colorectal malignant neoplasm Providers: Debbie Helm MD Referring MD: Renuka Ramírez MD Medicines: Propofol per Anesthesia Complications: No immediate complications. Estimated Blood Loss: Estimated blood loss: none. Procedure: Pre-Anesthesia Assessment: - ASA Grade Assessment: II - A patient with mild systemic disease. After I obtained informed consent, the scope was passed under direct vision. Throughout theprocedure, the patient's blood pressure, pulse, and oxygen saturations were monitored continuously.The Colonoscope was introduced through the anus and advanced to the terminal ileum. The colonoscopy was performed without difficulty. The patient tolerated the procedure well. The quality of the bowel preparation was good. Findings: The perianal and digital rectal examinations were normal. The terminal ileum appeared normal. The entire examined colon appeared normal on direct and retroflexion views. Procedure Code(s): --- Professional --- G0121, Colorectal cancer screening; colonoscopy on individual not meeting criteria for high risk Diagnosis Code(s): --- Professional --- Z12.11, Encounter for screening for malignantneoplasm of colon CPT copyright 2020 [employer]. All rights reserved. The codes documented in this report are preliminary and upon product marketing executive reviewmay be revised to meet current compliance requirements. Debbie Helm MD 09/05/2024 1:55:02 PM This report has been signed electronically.Debbie Helm MD Number of Addenda: 0 Note Initiated On: 09/05/2024 1:39 PM Scope In: Scope Out: Endoscopy Department at [facility] - [address] [place] [phone] IMPRESSION: - The examined portion of the ileum was normal. - The entire examined colon is normal on direct and retroflexion views. - No specimens collected. Recommendation: - Repeat colonoscopy in 10 years for screening purposes. Debbie Helm MD GI~PROCEDURE ORDERABLES Final Result * POC , urine NO CHARGE screening manually resulted (09/05/2024 1:19 PM EDT) HCG, Ur POC Negative Negative POC hCG Int QC Pass? Yes Yes Urine Urine specimen obtained by clean catch procedure / Unknown 09/05/2024 1:19 PM EDT Raghu Blandon DO POINT OF CARE TEST ENTER/EDIT O RDERABLES Final Result from Last 3 Months Insurance MEDICAID - [place] MEDICARE Care Teams Materials Scheduler Relationship Specialty Start Date End Date Renuka Ramírez MD [address] [phone] PCP - General Internal Medicine 07/02/24
--- OUTSIDE RECORDS SUMMARY | 2024-09-23 09:27 | XMS_ITS | Clinical Summary ---
Author Organization [facility] Address [address] [place] [address] Phone Care Team Providers Care Workers Compensation Legal Secretary Name Role Phone Renuka Raímrez MD Primary Care Provider [phone]- [phone] Social History Tobacco Use Types Packs/Day Years Used Date Smoking Tobacco: Never Assessed Education Answer Date Recorded Are you interested in more education? Not on mich e 09/09/2024 Are you concerned about learning? Not on file 09/09/2024 No 09/09/2024 No 09/09/2024 Digital Access Answer Date Recorded No 09/09/2024 No 09/09/2024 Reliable internet access at home? Not on file 09/09/2024 Device with a working camera? Not on file Comments Unknown Sex and Gender Information Value Date Recorded Sex Assigned at Not on file Legal Sex Female 9:23 PM EDT Gender Identity Not on file Sexual Orientation Not on file Plan of Treatment Upcoming Encounters Date Type Department Care Team (Late st Contact Info) Description 10/23/2024 8:00 AM EDT Office Visit [facility] [address] [place] [address] [place] [address] Izzy Bradshaw MD [address] [facility] [facility], [address] [place] [address] [email or web address] by [email or web address] Health Maintenance Due Date Last Done Comments Adult Td,Tdap Booster 1980 LIPID PANEL 1980 DEPRESSION SCREENING 1991 SMOKING Hx and SMOKELESS TOB ACCO SCREENING 1992 HEPATITIS C SCREENING 1997 HIV ONE-TIME SCREENING (18-6 5 YEARS) 1997 PAP SMEAR 2000 MAMMOGRAM 2019 COVID-19 VACCINE (2023-2 5 season) 2023 COLOGUARD 2024 COLONOSCOPY 2024 COLORECTAL CANCER SCREENING 2024 FIT TEST 2024 FOBT 2024 SIGMOIDOSCOPY 2024 VIRTUAL COLONOSCOPY 2024 HEPATITIS A VACCINES Aged Out No long er eligible based on patient's age to complete this topic HIB VACCINES Aged Out No longer eligi ble based on patient's age to complete this topic MENINGOCOCCAL VACCINES (ACWY) Aged Out No longer eligible based on patient's age to complete this topic MENINGOCOCCAL VACCINES (B) Aged Out N o longer eligible based on patient's age to complete this topic PNEUMOCOCCAL VACCINES (0-49 years) Aged Out No longer eligible based on patient's age to complete this topic Medical Devices Not on file Insurance MEDICARE PART A & B [facility] MEDICARE PART A & B [place] [facility] & [facility] Member Subscriber Plan / Payer (Ef fective 2010-Present) Name:Crystal Chapa Member ID:[id number] Relation to Subscriber:Self Name:EduardCrystal raya Subscriber ID:[id number] Payer ID:[id number] Group ID:Not on file Type:Medicare Address: [facility] [address] [phone] [facility] Care Teams Workers Compensation Legal Secretary Relationship Specialty Start Date End Date Renuka Ramírez MD [address] [phone] PCP - General Family Medicine 09/09/24 Additional Source Comments The information contained in this document represents components of the legal health record. It is not the complete legal health record.[facility]
[2024-09-23 09:36] LABS: Hematocrit 41.0 % (37.0-47.0); Hemoglobin 13.9 g/dl (12.0-16.0); Imm Gran Abs Auto 0.03 X10*3/uL (0.00-0.03); Imm Gran Pct Auto 0.3 % (0.0-0.4); Lymphocytes Absolute Auto 3.1 X10*3/uL (1.2-4.9); Mean Corpuscular HGB Conc 33.9 g/dl (31.0-35.0); Mean Corpuscular Hemoglobin 30.3 pg (27.0-33.0); Mean Corpuscular Volume 89.5 fL (80.0-98.0); NRBC Abs Auto 0.000 X10*3/uL (0.0-0.012); NRBC Pct Auto 0.0 /100WBC (0.0-0.2); Platelet Count 337 X10*3/uL (160-400); Red Blood Count 4.58 X10*6/uL (4.20-5.50); White Blood Count 9.8 X10*3/uL (4.8-10.8)
[2024-09-23 09:48] LABS: Appearance Urine Clear; Glucose Urine UA Negative (Negative); PH 7.5 (5.0-9.0); Specific Gravity - Urine <= 1.005 (1.005-1.025)
[2024-09-23 10:00] LABS: Lithium 0.62 mmol/L (0.60-1.20)
[2024-09-23 10:11] LABS: Alanine Aminotransferase 10 U/L (0-31); Albumin Level 4.4 g/dL (3.5-5.0); Alkaline Phosphatase 81 U/L (39-117); Anion Gap 11 (12-20); Aspartate Amino Transferase 16 U/L (5-31); Blood Urea Nitrogen 10 mg/dL (9-16); Calcium 9.3 mg/dL (8.4-10.2); Carbon Dioxide 24 mmol/L (22-29); Chloride 110 mmol/L (96-108); Estimated Glomerular Filt Rate 51; Potassium 3.8 mmol/L (3.3-5.1); Sodium 141 mmol/L (135-145); Total Protein 7.8 g/dL (6.5-8.0)
[2024-09-23 11:33] LABS: Osmolality, Serum 295 mosm/kg (281-305)
[2024-09-28 16:13] LABS: Metanephrine, Free 42 pg/mL (<=57); Normetanephrines, Free 286 pg/mL (<=148); Total Metanephrine, Free 328 pg/mL (<=205)
== END 2024-09-23 09:08 | disposition home or self-care (01) ==
LOC: HO.LAB 09:07
PROVIDERS: PCP Student in an Organized Health Care Education/Training Program; Visit Provider Psychiatry & Neurology Psychiatry
DX: E27.0 Other adrenocortical overactivity (principal); R00.2 Palpitations; E23.2 Diabetes insipidus; I15.8 Other secondary hypertension
CPT/HCPCS: 36415; 80053; 80178; 81001; 82550; 83835; 83930; 83935; 85025

== ENCOUNTER → 2024-10-03 13:30 | Outpatient (BNV) | payer MEDICARE, MEDICAID, SELFPAY | PROVIDERS: Visit Provider Psychiatry & Neurology Psychiatry | DX: F31.81 Bipolar II disorder (principal); F41.3 Other mixed anxiety disorders; F90.0 Attention-deficit hyperactivity disorder, predominantly inattentive type | CPT/HCPCS: 90832 ==

== ENCOUNTER 2024-10-07 13:15 | Outpatient (RCR) | payer MEDICARE, MEDICAID, SELFPAY ==
[2024-09-19 13:00] VITALS: BMI 28.0
[2024-09-19 13:01] VITALS: BP 122/90; PULSE 80; TEMP 36.9
--- NOTE | 2024-09-19 13:48 | PC.NURSE ---
Patient is a 44 year old single female who was referred to [facility] by her therapist d/t trishaxs of depression and anxiety. Patient was recently attended [facility] in April/June and reports it was helpful the last time she was here. Patient reports feeling overwhelmed with medication changes however stated Dr. Griffin has been helpful in supporting her regarding medication changes. Patient reports having a dystonic reaction to medications and medication changes helped resolve this issue. She reports she continues to struggle with taking medication at bedtime as she is scared the dystonic reactions will happen again. She reports she is taking medications as prescribed. Patient is alert and oriented x4. She is calm and cooperative. She presented with depressed mood and anxious affect. Regarding SI patient stated she has thoughts like, Things are too hard or I hate medicine . Patient denied any plan or intent to kill herself. She was given a copy of her safety plan if needed. Goal of treatment is to be able to ground herself and have less suicidal thoughts. Medications updated with patient's pharmacy and Dr. Griffin. Regarding substance use patient reports vaping Marijuana. Patient reports using twice a day a few times a week. Patient stated she is doing much better as she has cut down her use quite a bit.
--- NOTE | 2024-09-19 14:20 | HO.PHP ---
After the third group, Crystal approached the clinician to inform her that she does in fact have a plan around her suicidal thoughts. When [facility] staff member went to further explore the plan, Crystal refused to disclose and said she has no intent, she just wanted to be honest in regards to what is going on. [facility] staff member stated she is trying to access the level of safety but is unable to do that if she is refusing to inform her what her plan is around. Crystal said she has been going through medication changes that continue to be ineffective and they have been causing her to experience this increase in suicidal thoughts. [facility] staff member explored with Crystal if she addressed this with Dr. Griffin she said she did not. [facility] staff member voiced that she may need to go down to get evaluated and informed Crystal that she is going to talk to the team to see what the best approach will be. Crystal was receptive but tearful because she does not want to go inpatient. Dr. Griffin will be meeting with Crystal later to further assess.
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
--- NOTE | 2024-09-22 14:19 | HO.PHP ---
This fiction and nonfiction prose writer met with Crystal after the first group of the morning as she was unconsoled crying. She described her last admission as a focus on medication, and this time around at [facility] is different. She stated she is overwhelmed with what she needs to do, and it has been hard to cope while undergoing these changes. This fiction and nonfiction prose writer explored the need for a crisis evaluation, and Crystal stated she does not think she needs this service setting at this time. She described knowing herself and when it is too much for her. 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 Then, when she went into group, it was also triggering. Over time, she was able to regulate and stop crying. She was encouraged to return to group to listen. She thanked staff and appeared receptive to this intervention. She reports she will be safe, and she has been able to contract for safety while in the program.
[2024-09-23 10:37] VITALS: BP 100/80; PULSE 100
--- NOTE | 2024-09-23 23:49 | HO.PHPPROGNO ---
Subjective Subjective Date of Service: 09/23/24 Reason For Visit: bipolar,PTSD Review of Systems Patient seen for follow-up. Was visibly anxious in group. She presents dysregulated, emotional and exhibiting panicky symptoms. She continues to struggle with mood instability and intrusive SI, denies plan or intent. SHe takes her PRN and was given some time to de-escalate. She is eager to transition off lithium (given burden of health problems that are related to or further impacted by correction lithium treatment - diabetes insipidus, thyroid disease. SHe has brought her large pill organizer so that I can assist with these changes. Overall plan is if Zyprexa is felt to be effective/well-tolerated will transition from Seroquel to Zyprexa, and off lithium and onto Tegretol. If Tegretol is poorly tolerated, we may revisit Depakote (pt has been taking L carnitine supplement for deficiency, so perhaps she would be in a better position to tolerate VPA this time around (pt experienced ataxia, nausea during previous admission a few months ago) rah since she has a remote history of successful VPA treatment) Mental Status Exam Mental Status Exam Patient Appearance: Appropriate Level of Consciousness: Awake and Alert Patient Behavior: Appropriate Mood Description: Depressed, Anxious and Nervous Affect Description: Anxious, Labile and Apprehensive Ability to Follow Directions: Good Speech Pattern: Clear Hallucinations: None Delusions: Not Present Thought Process: Intact and Distracted Thought Content: positive for Racing, positive for Circumstantial, positive for Linear and positive for Preoccupation Depressive Symptoms: Increased Anxiety, Diff. Making Decisions, Difficulty Sleeping, Crying Spells, Thoughts of /Suicide and Difficulty Concentrating Abnormal Motor Activity Signs and Symptoms: Agitation Judgement: Good Diagnostics Vital Signs (24Hr): Vital Signs - 24 hr 09/23/24 10:37 Pulse Rate 100 Blood Pressure 100/80 BMI result Body Mass Index 28.0 Assessment & Plan Assessment & Plan (1) Bipolar 2 disorder: Status: Acute Code(s): F31.81 - Bipolar II disorder (2) Other mixed anxiety disorders: Status: Acute Code(s): F41.3 - Other mixed anxiety disorders (3) Attention-deficit hyperactivity disorder, unspecified type: Qualifiers: Attention deficit-hyperactivity disorder type: predominantly inattentive Qualified Code(s): F90.0 - Attention-deficit hyperactivity disorder, predominantly inattentive type Status: Acute Code(s): F90.9 - Attention-deficit hyperactivity disorder, unspecified type (4) PMDD (premenstrual dysphoric disorder): Status: Acute Code(s): F32.81 - Premenstrual dysphoric disorder (5) Heavy menstrual bleeding: Status: Acute Code(s): N92.0 - Excessive and frequent menstruation with regular cycle (6) Diabetes insipidus, nephrogenic: Status: Acute Code(s): N25.1 - Nephrogenic diabetes insipidus Assessment and Plan: due to long-standing lithium 1200 mg (dose reduced to 750 mg) (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 - Other diseases of vocal cords Assessment and Plan: long standing, now resolved - with lower dose of Seroquel (from 800 mg to 400 mg) Plan continue PHP hold LT4 hold propranolol (AM) hold guanfacine ER 1 mg (5pm) discont Vraylar start clonidine 0.1 mg QID prn anxiety/sleep continue methylphenidate 20 mg ER QAM continue [place] 300 mg QAM and 450 ER in evening discontinue Seroquel XR 50 mg qpm@5pm decrease Seroquel XR to 300 mg QHS hold Seroquel 50 mg qhs start olanzapine 5 mg QHS continue benztropine 0.5 mg BID (QPM@5pm/QHS@8pm) continue diazepam 5 mg QHS continue lorazepam 0.5 mg BID PRN anxiety continue progesterone 100 mg daily (Days 5-25 of menstrual cycle) continue [id number] 500 mg/d discontinued: gabapentin (overly sedating, long lasting), Depakote (poorly tolerated, possibly due to carnitine deficiency), propranolol, Adderall (insurance would not cover ER amphetamines) Lab results, EKG reviewed with patient Dx: nephrogenic diabetes insipidus - long standing maintenance of Li at 1200 mg, urine osmolality improved with dose reduced to 500 mg however patient did not tolerate, more emotionally stable now at 750 mg in addition to Vraylar 3 mg added Dx: laryngeal dystonic reaction - d/t Seroquel 800mg. Resolved with reduction of dose <400 and split dosing between 5 PM and HS anticipate discharge at end of week or Sunday continue to monitor Patient educated on: diagnosis, medication risk/benefits and medical condition Informed Consent: understands Reason for contiued partial hosp. stay Substantial Risk for: med/psych decompensation Certification I certify that partial hospital treatment is medically necessary due to the symptoms and problems resulting from the patient's mental illness and the failure to treat the patient at the partial hospital level of care would likely result in the patient requiring inpatient psychiatric care which could not be prevented at a less intensive level of care. Total time managing care of this patient today __30__ minutes. Discharge Plan Discharge Attending provider: eDe Griffin Medications: New carbamazepine [Carbatrol] 200 mg capsule, ER multiphase 12 hr 400 mg PO BID Qty: 120 0RF olanzapine 15 mg tablet,disintegrating 15 mg PO BEDTIME Qty: 30 0RF olanzapine 5 mg tablet 5 mg PO DAILY Qty: 30 0RF risperidone 0.25 mg tablet 0.125 - 0.25 mg PO BID PRN (Reason: agitation) Qty: 30 0RF carbamazepine [Carbatrol] 300 mg capsule, ER multiphase 12 hr 300 mg PO BID Qty: 60 0RF olanzapine 20 mg tablet 20 mg PO BEDTIME Qty: 30 0RF Rx Instructions: -dose increase- Continued L-Carnitine 500 mg tablet 500 mg PO DAILY Qty: 60 1RF Rx Instructions: must administer with a meal/food levothyroxine 75 mcg Tablet 75 mcg PO DAILY methylphenidate HCl 20 mg tablet extended release 20 mg PO QAM 30 Days Qty: 30 0RF Rx Instructions: Partial Fill upon patient request. guanfacine 1 mg tablet extended release 24 hr 1 mg PO DAILY Qty: 90 0RF Rx Instructions: at 5pm benztropine 1 mg tablet 1 mg PO BEDTIME Qty: 30 0RF progesterone micronized 100 mg capsule 100 mg PO QAM 21 Days Qty: 21 2RF Rx Instructions: start on Day 5 of menses- continue for 21 days, off 7 days; repeat cycle Changed diazepam 5 mg tablet 5 mg PO BID 30 Days Qty: 60 0RF lorazepam 1 mg tablet 1 mg PO DAILY PRN (Reason: anxiety) Qty: 30 0RF Discontinued lithium carbonate 450 mg tablet extended release 450 mg PO BEDTIME 90 Days Qty: 90 0RF benztropine 0.5 mg tablet 0.5 mg PO BID Qty: 180 0RF quetiapine 400 mg tablet extended release 24 hr 400 mg PO BEDTIME Qty: 90 0RF lithium carbonate 300 mg tablet extended release 300 mg PO QAM Qty: 60 0RF quetiapine 50 mg tablet 50 mg PO BEDTIME Qty: 30 0RF cariprazine 3 mg capsule 3 mg PO DAILY Qty: 30 0RF quetiapine 50 mg tablet extended release 24 hr 50 mg PO DAILY Rx Instructions: at 5pm Stand Alone Forms: Patient Portal Discharge page Patient Education: ADHD in Adults (DC), Bipolar Disorder (ED), Bipolar Disorder (DC) Print Language: Omani
[2024-09-25 09:15] VITALS: BP 124/80; PULSE 104
--- NOTE | 2024-09-25 15:43 | HO.PHP ---
Patient's case was opened and reviewed in treatment team
--- NOTE | 2024-09-25 22:34 | HO.PHPPROGNO ---
Subjective Subjective Date of Service: 09/25/24 Reason For Visit: bipolar,PTSD Interim History: Patient seen for follow up. Overall she is doing well with the medication adjustments She has been tolerating carbamazepine, denies any adverse effects. Has been sleeping better on it and does not feel tired in the mornin. Denies any hopelessness or SI. Some moments of feeling overwhelmed and generally gravitates toward staff when feeling she needs reassurances but has been better able to tolerate stress in the past few days. Medication Compliance: Yes Side effects from medications: No Attending Groups: Yes Review of Systems Acute medical concerns: No Mental Status Exam Mental Status Exam Narrative: Alert, oriented, cooperative. Normal gait. Eye contact good. Mood good, affect bright without tearfulness or lability. Speech normal.. No evidence of thought disorder. Thought content related to stressors, future oriented, denies any SI, urge, intention or plan. Future-oriented. Denies thoughts to harm self or others.? No aggressive ideation or HI. No paranoia or delusional content elicited. Denies any AH, VH, TH. Insight and judgment fair-good. Diagnostics Vital Signs (24Hr): BMI result Body Mass Index 28.0 Assessment & Plan Assessment & Plan (1) Bipolar 2 disorder: Status: Acute Code(s): F31.81 - Bipolar II disorder (2) Other mixed anxiety disorders: Status: Acute Code(s): F41.3 - Other mixed anxiety disorders (3) Attention-deficit hyperactivity disorder, unspecified type: Qualifiers: Attention deficit-hyperactivity disorder type: predominantly inattentive Qualified Code(s): F90.0 - Attention-deficit hyperactivity disorder, predominantly inattentive type Status: Acute Code(s): F90.9 - Attention-deficit hyperactivity disorder, unspecified type (4) PMDD (premenstrual dysphoric disorder): Status: Acute Code(s): F32.81 - Premenstrual dysphoric disorder (5) Heavy menstrual bleeding: Status: Acute Code(s): N92.0 - Excessive and frequent menstruation with regular cycle (6) Diabetes insipidus, nephrogenic: Status: Acute Code(s): N25.1 - Nephrogenic diabetes insipidus Assessment and Plan: due to long-standing lithium 1200 mg (dose reduced to 750 mg) (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 - Other diseases of vocal cords Assessment and Plan: long standing, now resolved - with lower dose of Seroquel (from 800 mg to 400 mg) Plan continue PHP restart LT4 continue methylphenidate 20 mg ER QAM start carbamazepine XR 100 mg BID decrease [place] ER from 300 mg BID mg to 450 mg in evening lower Seroquel XR to 150 mg QHS increase olanzapine to 10 mg qhs continue benztropine 0.5 mg BID (QPM@5pm/QHS@8pm) continue diazepam 5 mg QHS continue lorazepam 0.5 mg BID PRN anxiety continue progesterone 100 mg daily (Days 5-25 of menstrual cycle) continue [id number]-[id number] 500 mg/d discontinued: gabapentin (overly sedating, long lasting), Depakote (poorly tolerated, possibly due to carnitine deficiency), propranolol, Adderall (insurance would not cover ER amphetamines) Lab results, EKG reviewed with patient Dx: nephrogenic diabetes insipidus - long standing maintenance of Li at 1200 mg, urine osmolality improved with dose reduced to 500 mg however patient did not tolerate, more emotionally stable now at 750 mg in addition to Vraylar 3 mg added Dx: laryngeal dystonic reaction - d/t Seroquel 800mg. Resolved with reduction of dose <400 and split dosing between 5 PM and HS anticipate discharge at end of week or Sunday continue to monitor Patient educated on: diagnosis, medication risk/benefits and medical condition Informed Consent: understands Reason for contiued partial hosp. stay Substantial Risk for: med/psych decompensation Certification I certify that partial hospital treatment is medically necessary due to the symptoms and problems resulting from the patient's mental illness and the failure to treat the patient at the partial hospital level of care would likely result in the patient requiring inpatient psychiatric care which could not be prevented at a less intensive level of care. Total time managing care of this patient today __30__ minutes. Discharge Plan Discharge Attending provider: Dee Griffin Medications: New clonidine HCl 0.1 mg tablet 0.1 mg PO TID Qty: 30 0RF carbamazepine 100 mg tablet extended release 12 hr 100 mg PO BID Qty: 30 0RF carbamazepine [Carbatrol] 200 mg capsule, ER multiphase 12 hr 400 mg PO BID Qty: 120 0RF olanzapine 2.5 mg tablet 2.5 mg PO BID PRN (Reason: agitation, anxiety) Qty: 60 0RF olanzapine 15 mg tablet,disintegrating 15 mg PO BEDTIME Qty: 30 0RF benztropine 1 mg tablet 1 mg PO BEDTIME Qty: 30 0RF Continued L-Carnitine 500 mg tablet 500 mg PO DAILY Qty: 60 1RF Rx Instructions: must administer with a meal/food lorazepam 1 mg tablet 1 mg PO BID PRN (Reason: anxiety) Qty: 60 0RF progesterone micronized 100 mg capsule 100 mg PO QAM 21 Days Qty: 21 2RF Rx Instructions: start on Day 5 of menses- continue for 21 days, off 7 days; repeat cycle diazepam 5 mg tablet 5 mg PO BEDTIME Qty: 60 0RF levothyroxine 75 mcg Tablet 75 mcg PO DAILY methylphenidate HCl 20 mg tablet extended release 20 mg PO QAM 30 Days Qty: 30 0RF Rx Instructions: Partial Fill upon patient request. Discontinued lithium carbonate 450 mg tablet extended release 450 mg PO BEDTIME 90 Days Qty: 90 0RF benztropine 0.5 mg tablet 0.5 mg PO BID Qty: 180 0RF quetiapine 400 mg tablet extended release 24 hr 400 mg PO BEDTIME Qty: 90 0RF lithium carbonate 300 mg tablet extended release 300 mg PO QAM Qty: 60 0RF quetiapine 50 mg tablet 50 mg PO BEDTIME Qty: 30 0RF cariprazine 3 mg capsule 3 mg PO DAILY Qty: 30 0RF quetiapine 50 mg tablet extended release 24 hr 50 mg PO DAILY Rx Instructions: at 5pm No Action guanfacine 1 mg tablet extended release 24 hr 1 mg PO DAILY Qty: 90 0RF Rx Instructions: at 5pm Stand Alone Forms: Patient Portal Discharge page Print Language: Bengali
--- NOTE | 2024-09-29 22:41 | P.PNPSP_ITS ---
Subjective Subjective Date of Service: 09/29/24 Reason For Visit: bipolar,PTSD Interim History: Patient see for follow up. Presents as bright, pleasant and engaged in treatment. Reports mood is good , denies any h/h/SI. She reports aside from the meltdown in (staff's) office earlier , it's been a good day . She relays having had a breakdown, some of this she attributes to some sad emotions in anticipation of her last day of going to the stable tomorrow. Say the experience was a big part of her mental health support and feels she will miss going there and spending time. SHe relays having come to terms with this loss and has been brainstorming ideas to implement more structure into her week. She will be on her last dose of lithium tomorrow and has been tolerating incremental increases in the carbamazepine. Denies any adverse effects. She is sleeping well on the olanzapine and tapered off the Seroquel over the weekend. She is pleased with her progress this far. Medication Compliance: Yes Side effects from medications: No Attending Groups: Yes Review of Systems Acute medical concerns: No Mental Status Exam Mental Status Exam Narrative: Alert, oriented, cooperative. Normal gait. Eye contact good. Mood good, affect bright without tearfulness or lability. Speech normal.. No evidence of thought disorder. Thought content related to stressors, future oriented, denies any SI, urge, intention or plan. Future-oriented. Denies thoughts to harm self or others.? No aggressive ideation or HI. No paranoia or delusional content elicited. Denies any AH, VH, TH. Insight and judgment fair-good. Diagnostics Vital Signs (24Hr): BMI result Body Mass Index 28.0 Assessment & Plan Assessment & Plan (1) Bipolar 2 disorder: Status: Acute Code(s): F31.81 - Bipolar II disorder (2) Other mixed anxiety disorders: Status: Acute Code(s): F41.3 - Other mixed anxiety disorders (3) Attention-deficit hyperactivity disorder, unspecified type: Qualifiers: Attention deficit-hyperactivity disorder type: predominantly inattentive Qualified Code(s): F90.0 - Attention-deficit hyperactivity disorder, predominantly inattentive type Status: Acute Code(s): F90.9 - Attention-deficit hyperactivity disorder, unspecified type (4) PMDD (premenstrual dysphoric disorder): Status: Acute Code(s): F32.81 - Premenstrual dysphoric disorder (5) Heavy menstrual bleeding: Status: Acute Code(s): N92.0 - Excessive and frequent menstruation with regular cycle (6) Diabetes insipidus, nephrogenic: Status: Acute Code(s): N25.1 - Nephrogenic diabetes insipidus Assessment and Plan: due to long-standing lithium 1200 mg (dose reduced to 750 mg) (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 - Other diseases of vocal cords Assessment and Plan: long standing, now resolved - with lower dose of Seroquel (from 800 mg to 400 mg) Plan continue PHP continue methylphenidate 20 mg ER QAM taper off Seroquel XR 150 mg increase olanzapine to 15 mg qhs increase carbamazepine XR to 200 mg BID continue [place] 300 mg ER qhs x tonight ad tomorrow then stop continue benztropine now 1 mg QHS (may consider lowering to 0.5) continue diazepam 5 mg QHS and 2.5 mg qd@5pm continue lorazepam 0.5 mg BID PRN anxiety continue progesterone 100 mg daily (Days 5-25 of menstrual cycle) continue Ohzoqv-U-Zoezlkygz 500 mg/d continue levothyroxine 75 mcg qd discontinued: gabapentin (overly sedating, long lasting), Depakote (poorly tolerated, possibly due to carnitine deficiency), propranolol, Adderall (insurance would not cover ER amphetamines) Lab results, EKG reviewed with patient Dx: nephrogenic diabetes insipidus - long standing maintenance of Li at 1200 mg, urine osmolality improved with dose reduced to 500 mg however patient did not tolerate, more emotionally stable now at 750 mg in addition to Vraylar 3 mg added Dx: laryngeal dystonic reaction - d/t Seroquel 800mg. Resolved with reduction of dose <400 and split dosing between 5 PM and HS anticipate discharge at end of week or Sunday continue to monitor Patient educated on: diagnosis, medication risk/benefits and medical condition Informed Consent: understands Reason for contiued partial hosp. stay Substantial Risk for: med/psych decompensation Certification I certify that partial hospital treatment is medically necessary due to the symptoms and problems resulting from the patient's mental illness and the vania lure to treat the patient at the partial hospital level of care would likely result in the patient requiring inpatient psychiatric care which could not be prevented at a less intensive level of care. Total time managing care of this patient today ____ minutes. Discharge Plan Discharge Attending provider: Dee Griffin Medications: New clonidine HCl 0.1 mg tablet 0.1 mg PO TID Qty: 30 0RF carbamazepine 100 mg tablet extended release 12 hr 100 mg PO BID Qty: 30 0RF carbamazepine [Carbatrol] 200 mg capsule, ER multiphase 12 hr 400 mg PO BID Qty: 120 0RF olanzapine 2.5 mg tablet 2.5 mg PO BID PRN (Reason: agitation, anxiety) Qty: 60 0RF olanzapine 15 mg tablet,disintegrating 15 mg PO BEDTIME Qty: 30 0RF benztropine 1 mg tablet 1 mg PO BEDTIME Qty: 30 0RF Continued L-Carnitine 500 mg tablet 500 mg PO DAILY Qty: 60 1RF Rx Instructions: must administer with a meal/food lorazepam 1 mg tablet 1 mg PO BID PRN (Reason: anxiety) Qty: 60 0RF progesterone micronized 100 mg capsule 100 mg PO QAM 21 Days Qty: 21 2RF Rx Instructions: start on Day 5 of menses- continue for 21 days, off 7 days; repeat cycle diazepam 5 mg tablet 5 mg PO BEDTIME Qty: 60 0RF levothyroxine 75 mcg Tablet 75 mcg PO DAILY methylphenidate HCl 20 mg tablet extended release 20 mg PO QAM 30 Days Qty: 30 0RF Rx Instructions: Partial Fill upon patient request. Discontinued lithium carbonate 450 mg tablet extended release 450 mg PO BEDTIME 90 Days Qty: 90 0RF benztropine 0.5 mg tablet 0.5 mg PO BID Qty: 180 0RF quetiapine 400 mg tablet extended release 24 hr 400 mg PO BEDTIME Qty: 90 0RF lithium carbonate 300 mg tablet extended release 300 mg PO QAM Qty: 60 0RF quetiapine 50 mg tablet 50 mg PO BEDTIME Qty: 30 0RF cariprazine 3 mg capsule 3 mg PO DAILY Qty: 30 0RF quetiapine 50 mg tablet extended release 24 hr 50 mg PO DAILY Rx Instructions: at 5pm No Action guanfacine 1 mg tablet extended release 24 hr 1 mg PO DAILY Qty: 90 0RF Rx Instructions: at 5pm Stand Alone Forms: Patient Portal Discharge page Print Language: Swedish
--- NOTE | 2024-10-01 15:01 | HO.PHP ---
[employer] spoke with Crystal before group 4, she reported that she was having a difficult time regulating her emotions and stated she needed to go home. She denied any safety concerns and plans to be in attendance at program tomorrow
--- NOTE | 2024-10-03 15:02 | HO.PHP ---
[facility] staff member met with Crystal due to her becoming dysregulated at the start of group 2. When [facility] staff member explored what triggered this response she was unable to identify. [facility] staff member suggested that we walk to her office (we were in group room A alone but she was crying loudly, I didn't want to disrupt the group that was occurring in the kitchen). While walking to my office, Dr. Griffin had heard Crystal and provided her with support. Dr. Griffin encouraged her to take her PRN medications, which she did. Dr. Griffin had left Crystal with me to process. Crystal disclosed that she was feeling weird. [facility] staff member explored what weird is for her. She said she feels uncomfortable. Crystal said she was doing okay this morning but then she became emotionally dysregulated and is uncertain why. Crystal and [facility] staff member engaged in conversation around her cat, which helped her regulate. PHP staff member and Crystal then developed a weekend plan and she even reached out to a friend while meeting with PHP staff so she can have support over the weekend and develop a plan. Crystal was able to regulate and return to group.
--- NOTE | 2024-10-07 18:16 | HO.PHPPROGNO ---
Subjective Subjective Date of Service: 10/07/24 Reason For Visit: bipolar,PTSD Interim History: Patient seen for follow-up, anticipating discharge at the end of program today Overall she is doing well with the medication adjustments She has been tolerating carbamazepine, denies any adverse effects. Has been sleeping better on it and does not feel tired in the mornin. Reports no acute issues or concerns. Medication compliant, medications well-tolerated. Denies any adverse effects.? Denies any hopelessness or SI. Some moments of feeling overwhelmed and generally gravitates toward staff when feeling she needs reassurances but has been better able to tolerate stress in the past few days. Denies any aggressive ideation or HI. Denies any paranoia or AH or VH. Sleep, appetite, energy stable. Medication Compliance: Yes Side effects from medications: No Attending Groups: Yes Review of Systems Acute medical concerns: No Mental Status Exam Mental Status Exam Narrative: Alert, oriented, cooperative. Normal gait. Eye contact good. Mood good, affect bright without tearfulness or lability. Speech normal.. No evidence of thought disorder. Thought content related to stressors, future oriented, denies any SI, urge, intention or plan. Future-oriented. Denies thoughts to harm self or others.? No aggressive ideation or HI. No paranoia or delusional content elicited. Denies any AH, VH, TH. Insight and judgment fair-good. Diagnostics Vital Signs (24Hr): BMI result Body Mass Index 28.0 Assessment & Plan Assessment & Plan (1) Bipolar 2 disorder: Status: Acute Code(s): F31.81 - Bipolar II disorder (2) Other mixed anxiety disorders: Status: Acute Code(s): F41.3 - Other mixed anxiety disorders (3) Attention-deficit hyperactivity disorder, unspecified type: Qualifiers: Attention deficit-hyperactivity disorder type: predominantly inattentive Qualified Code(s): F90.0 - Attention-deficit hyperactivity disorder, predominantly inattentive type Status: Acute Code(s): F90.9 - Attention-deficit hyperactivity disorder, unspecified type (4) PMDD (premenstrual dysphoric disorder): Status: Acute Code(s): F32.81 - Premenstrual dysphoric disorder (5) Heavy menstrual bleeding: Status: Acute Code(s): N92.0 - Excessive and frequent menstruation with regular cycle (6) Diabetes insipidus, nephrogenic: Status: Acute Code(s): N25.1 - Nephrogenic diabetes insipidus Assessment and Plan: due to long-standing lithium 1200 mg (dose reduced to 750 mg) (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 - Other diseases of vocal cords Assessment and Plan: long standing, now resolved - with lower dose of Seroquel (from 800 mg to 400 mg) Plan continue PHP restart LT4 continue methylphenidate 20 mg ER QAM start carbamazepine XR 100 mg BID decrease [place] ER from 300 mg BID mg to 450 mg in evening lower Seroquel XR to 150 mg QHS increase olanzapine to 10 mg qhs continue benztropine 0.5 mg BID (QPM@5pm/QHS@8pm) continue diazepam 5 mg QHS continue lorazepam 0.5 mg BID PRN anxiety continue progesterone 100 mg daily (Days 5-25 of menstrual cycle) continue Olznhl-A-Pwymshqxo 500 mg/d discontinued: gabapentin (overly sedating, long lasting), Depakote (poorly tolerated, possibly due to carnitine deficiency), propranolol, Adderall (insurance would not cover ER amphetamines) Lab results, EKG reviewed with patient Dx: nephrogenic diabetes insipidus - long standing maintenance of Li at 1200 mg, urine osmolality improved with dose reduced to 500 mg however patient did not tolerate, more emotionally stable now at 750 mg in addition to Vraylar 3 mg added Dx: laryngeal dystonic reaction - d/t Seroquel 800mg. Resolved with reduction of dose <400 and split dosing between 5 PM and HS anticipate discharge at end of week or Sunday continue to monitor Patient educated on: diagnosis, medication risk/benefits and medical condition Informed Consent: understands Reason for contiued partial hosp. stay Substantial Risk for: stable for discharge Certification I certify that partial hospital treatment is medically necessary due to the symptoms and problems resulting from the patient's mental illness and the failure to treat the patient at the partial hospital level of care would likely result in the patient requiring inpatient psychiatric care which could not be prevented at a less intensive level of care. Total time managing care of this patient today __30__ minutes. Discharge Plan Discharge Attending provider: Dee Griffin Medications: New carbamazepine [Carbatrol] 200 mg capsule, ER multiphase 12 hr 400 mg PO BID Qty: 120 0RF olanzapine 15 mg tablet,disintegrating 15 mg PO BEDTIME Qty: 30 0RF benztropine 1 mg tablet 1 mg PO BEDTIME Qty: 30 0RF olanzapine 5 mg tablet 5 mg PO DAILY Qty: 30 0RF risperidone 0.25 mg tablet 0.125 - 0.25 mg PO BID PRN (Reason: agitation) Qty: 30 0RF Continued L-Carnitine 500 mg tablet 500 mg PO DAILY Qty: 60 1RF Rx Instructions: must administer with a meal/food lorazepam 1 mg tablet 1 mg PO BID PRN (Reason: anxiety) Qty: 60 0RF levothyroxine 75 mcg Tablet 75 mcg PO DAILY methylphenidate HCl 20 mg tablet extended release 20 mg PO QAM 30 Days Qty: 30 0RF Rx Instructions: Partial Fill upon patient request. guanfacine 1 mg tablet extended release 24 hr 1 mg PO DAILY Qty: 90 0RF Rx Instructions: at 5pm progesterone micronized 100 mg capsule 100 mg PO QAM 21 Days Qty: 21 2RF Rx Instructions: start on Day 5 of menses- continue for 21 days, off 7 days; repeat cycle Changed diazepam 5 mg tablet 5 mg PO BID 30 Days Qty: 60 0RF Discontinued lithium carbonate 450 mg tablet extended release 450 mg PO BEDTIME 90 Days Qty: 90 0RF benztropine 0.5 mg tablet 0.5 mg PO BID Qty: 180 0RF quetiapine 400 mg tablet extended release 24 hr 400 mg PO BEDTIME Qty: 90 0RF lithium carbonate 300 mg tablet extended release 300 mg PO QAM Qty: 60 0RF quetiapine 50 mg tablet 50 mg PO BEDTIME Qty: 30 0RF cariprazine 3 mg capsule 3 mg PO DAILY Qty: 30 0RF quetiapine 50 mg tablet extended release 24 hr 50 mg PO DAILY Rx Instructions: at 5pm Stand Alone Forms: Patient Portal Discharge page Patient Education: ADHD in Adults (DC), Bipolar Disorder (ED), Bipolar Disorder (DC) Print Language: Sinhala
== END 2024-10-07 23:59 | disposition home or self-care (01) ==
LOC: HO.PHPA 13:15
PROVIDERS: Visit Provider Psychiatry & Neurology Psychiatry
DX: F31.81 Bipolar II disorder (principal); F41.3 Other mixed anxiety disorders; F90.0 Attention-deficit hyperactivity disorder, predominantly inattentive type; N92.0 Excessive and frequent menstruation with regular cycle; N25.1 Nephrogenic diabetes insipidus; J38.3 Other diseases of vocal cords; Z79.899 Other long term (current) drug therapy
CPT/HCPCS: 90791; 90853

== ENCOUNTER 2024-11-04 07:49 | Outpatient (REF) | payer MEDICARE, MEDICAID, SELFPAY ==
--- OUTSIDE RECORDS SUMMARY | 2024-11-04 07:52 | XMS_ITS | Clinical Summary ---
Author Organization [facility] Address [address] [place] [address] Phone Care Team Providers Care Freight Service Inspector Name Role Phone Renuka Ramírez MD Primary Care Provider Allergies Active Allergy Reactions Criticality Noted Date Comments Amoxicillin-Pot Clavulanate Diarrhea 06/20/19 14 C-diff Permethrin Rash Low 07/02/2024 Medications clotrimazole-betam ethasone (LOTRISONE) cream APPLY TO AFFECTED AND SURROUNDING AREAS FOR 2 WEEKS IN THE MORNING AND EVENING FOR 2 WEEKS 10/17/19 25 Active diazePAM (VALIUM) 5 MG tablet TAKE 1 TABLET BY MOUTH TWICE A DAY FOR DYSTONIC REACTION FOR 30 DAYS Active guanFACINE (INTUNIV) 1 mg Tb24 TAKE 1 TABLET BY MOUTH DAILY AT 5:00 PM 08/01/19 25 Active levothyroxine (SYNTHROID, LEVOTHROID) 75 MCG tablet Take 1 tablet by mouth every morning. 09/18/19 25 Active LORazepam (ATIVAN) 1 MG tablet Take 1 mg by mouth 2 (two) times a day as needed. 08/14/19 25 Active methylphenidate HCl (METADATE ER) 20 MG ER tablet take 1 tablet by mouth every morning for 30 days Active OLANZapine (ZYPREXA ZYDIS) 15 MG disintegrating tablet Take 15 mg by mouth nightly at bedtime. at bedtime. 10/07/19 25 Active OLANZapine (ZYPREXA) 5 MG tablet Take 1 tablet by mouth every morning. 10/16/19 25 Active progesterone (PROMETRIUM) 100 mg capsule TAKE 1 CAPSULE EVERY DAY IN THE MORNING FOR 21 DAYS THEN 7 DAYS OFF Active benztropine (COGENTIN) 1 MG tablet take 1 tablet by mouth everyday at bedtime 10/04/19 25 Active adalimumab-adbm (CYLTEZO,CF,) 40 mg/0.4 mL SyKt Inject 40 mg under the skin every 14 (fourteen) days. Active carBAMazepine (TEGRETOL XR) 200 MG 12 hr tablet Take 200 mg by mouth 2 (two) times a day. Active Encounters Date Type Department Care Team Description 10/23/2024 8:00 AM EDT Office Visit [facility] [address] [place] [address] [place] [address] Izzy Bradshaw MD Routine gynecological examination (Primary Dx); Screening for cervical cancer from Last 3 Months Family History Medical History Relation Comments Breast cancer Mother Relation Status Comments Mother Social History Tobacco Use Types Packs/Day Years Used Date Smoking Tobacco: Never Smokeless Tobacco: Never Tobacco Cessation:Counseling Given: Not Answered Alcohol Use Standard Drinks/Week Comments Not Currently 0 (1 standard drink = 0.6 oz pur e alcohol) Education Answer Date Recorded Are you interested in more education? Not on mich e 09/09/2024 Are you concerned about learning? Not on file 09/09/2024 No 09/09/2024 No 09/09/2024 Digital Access Answer Date Recorded No 09/09/2024 No 09/09/2024 Reliable internet access at home? Not on file 09/09/2024 Device with a working camera? Not on file Comments No Sex and Gender Information Value Date Recorded Sex Assigned at Not on file Legal Sex Female 9:23 PM EDT Gender Identity Not on file Sexual Orientation Not on file Last Filed Vital Signs Vital Sign Reading Time Taken Comments Blood Pressure 102/76 10/23/2024 8:05 AM EDT Pulse - - Temperature - - Respiratory Rate - - Oxygen Saturation - - Inhaled Oxygen Concentration - - Weight 73.9 kg (163 lb) 10/23/2024 8:05 AM EDT Height - - Body Mass Index - - Plan of Treatment Health Maintenance Due Date Last Done Comments CARBAMAZEPINE (TEGRETOL) LEVEL 1979 LIPID PANEL 1979 TSH LEVEL 1979 DEPRESSION SCREENING 1991 HEPATITIS C SCREENING 1997 HIV ONE-TIME SCREENING (18-65 YEARS) 1997 SMOKING STATUS SCREENING (Once After 26 Yrs) 2005 PNEUMOCOCCAL VACCINES (0-49 years) (2 of 2 - PCV) 02/16/2016 02/15/2015 MAMMOGRAM 2019 COLOGUARD 2024 COLONOSCOPY 2024 COLORECTAL CANCER SCREENING 2024 FIT TEST 2024 FOBT 2024 SIGMOIDOSCOPY 2024 VIRTUAL COLONOSCOPY 2024 INFLUENZA VACCINE (#1) 2024 , 11/27/2022, 12/01/2021, Additional history exists COVID-19 VACCINE ( season) 2024 12/07/2021, 01/11/2021, 05/17/2020, Additional history exists PAP SMEAR 10/24/2027 10/23/2024 Adult Td,Tdap Booster 06/06/2032 06/06/2022 , 02/04/2016, 02/03/2014, Additional history exists MENINGOCOCCAL VACCINES (ACWY) Aged Out 08/24/2005 No longer eligible based on patient's age to complete this topic HEPATITIS A VACCINES Aged Out No long er eligible based on patient's age to complete this topic HIB VACCINES Aged Out No longer eligi ble based on patient's age to complete this topic MENINGOCOCCAL VACCINES (B) Aged Out N o longer eligible based on patient's age to complete this topic Medical Devices Not on file Procedures Procedure Name Priority Date/Time Associated Diagnosis Comments PAP TEST Routine 10/23/2024 12:00 AM EDT from Last 3 Months Results * Pap Test (10/23/2024 12:00 AM EDT) 10/23/2024 10/24/2024 9:5 2 AM EDT Narrative SEE NARRATIVE - 10/28/2024 8:03 AM EDT [address] [address] Legislative Correspondent: Deion Jaeger MD SECURITIES TELLER Cytology Report FINAL DIAGNOSIS A. PAP SMEAR (THIN PREP) CE: SPECIMEN ADEQUACY: Satisfactory for evaluation; transformation zone absent/insufficient. INTERPRETATION: NEGATIVE FOR INTRAEPITHELIAL LESION OR MALIGNANCY. This specimen was analyzed by the automated ThinPrep Imaging System (Angel[employer].) and the selected gary were reviewed by a grounds keeper. Electronically Signed Out By: THIAGO Evans(ASCP) The Pap test is a screening test primarily for squamous cancers and precursors and has associated false-negative and false-positive results. New technologies such as liquid-based preparations may decrease but will not eliminate all false-negative results. Regular sampling and follow-up of unexplained clinical signs and symptoms are recommended to minimize false negative results. PROCEDURES/ADDENDA HPV Testing (Requested) Ordered Date: 10/24/2024 A. PAP SMEAR (THIN PREP) CE: High-risk HPV Panel w/ extended genotyping NEG HPV 16-NEG HPV 18-NEG HPV 45-NEG HPV 33/58-NEG HPV 31-NEG HPV 56/59/66-NEG HPV 51-NEG HPV 52-NEG HPV 35/39/68-NEG Performed by real-time polymerase chain reaction (PCR) at [address] using the FDA-approved Cartavi Onclarity HPV Assay with extended genotyping. Uses of the assay in scenarios other than those approved by the FDA should be considered off-label use. The accuracy and precision of this test for all other off-label specimen sources has been verified in the Cytopathology Laboratory of the [facility] and has not been cleared or approved by the U.S. Food and Drug Administration. Clinical correlation is advised. The assay assesses the E6/E7 DNA target and utilizes human beta globin as an internal control. Cytology and HPV testing are screening assays and should not be used as the sole means of detecting cancer. False-positives and false-negatives can occur. CLINICAL HISTORY Date of Last Menstrual Period: 10-04-2024 Other Clinical Conditions: Screening Pap SPECIMEN SOURCE A: PAP SMEAR (THIN PREP) CE Patient Name: CRYSTAL ROBLERO : 1980 (Age: 44) Sex: F Institution: [facility] Location: [facility] Date of Collection: 10/23/2024 Date of Reported: 10/28/2024 08:03 Results to: Izzy Bradshaw MD us Izzy Bradshaw MD CYTOLOGY ORDERABLES Final Resu lt SEE NARRATIVE from Last 3 Months Insurance MEDICARE PART A & B [place]ALTH MEDICARE PART A & [place] PART [place] & [facility] & B [facility] Care Teams Freight Service Inspector Relationship Specialty Start Date End Date Renuka Ramírez MD [address] [phone] PCP - General Family Medicine 09/09/24 Additional Source Comments The information contained in this document represents components of the legal health record. It is not the complete legal health record.[facility]
--- OUTSIDE RECORDS SUMMARY | 2024-11-04 07:52 | XMS_ITS | Clinical Summary ---
Author Organization [facility] [address] [facility] Address [address] [place] [address] Phone Care Team Providers Care Binder Operator Name Role Phone Renuka Ramírez MD Primary Care Provider [phone] Allergies Active Allergy Reactions Criticality Noted Date [...] Description 09/05/2024 1:34 PM EDT Anesthesia Event [facility] Endoscopy [address] [place] [phone] Raghu Blandon DO 09/05/2024 1:01 PM EDT - 09/05/2024 11:59 PM EDT Hospital Encounter [facility] [address] [place] [address] Debbie Helm MD Kapplan, Jacob A, CRNA Colon cancer screening Discharge Disposition: Home or Self Care from Last 3 Months Surgical History Surgery Date Site/Laterality Comments TONSILLECTOMY Medical History Medical History Date Comments Asthma DX:Asthma Anxiety Bipolar 1 disorder (CMS/HCC V24, [facility] V28) Irritable bowel syndrome Hypothyroid Psoriasis Family [...] (2 of 2 - PCV) 02/16/2016 02/15/2015 Depression Screening 02/20/2024 Cholesterol Screening (Lipid Panel) 07/02/2024 HIV Screening 07/02/2024 Hepatitis C Screening 07/02/2024 Medicare Annual Wellness Visit 07/02/2024 Social Influencers of Health Screening 07/02/2024 COVID-19 Vaccine ( season) 2024 12/07/2021, 01/11/2021, 05/17/2020, Additional history exists Influenza Vaccine (#1) 2024 , 11/27/2022, 12/01/2021, [...] Months Results * COLONOSCOPY Anesthesia - MAC; [facility] ENDOSCOPY (09/05/2024 1:52 PM EDT) Anatomical Region Laterality Modality Endoscopy 09/05/2024 1:39 PM EDT Impressions 09/05/2024 1:55 PM EDT - The examined portion of the ileum was normal. - The entire examined colon is normal on direct and retroflexion views. - No specimens collected. Recommendation: - Repeat colonoscopy in 10 years for screening purposes. Narrative 09/05/2024 1:55 PM EDT [facility] GI Patient Name: Crystal Roblero Procedure Date: [...] malignant neoplasm of colon CPT copyright 2020 [employer]. All rights reserved. The codes documented in this report are preliminary and upon cross tie turner review may be revised to meet current compliance requirements. Debbie Helm MD 09/05/2024 1:55:02 PM This report has been signed electronically.Debbie Helm MD Number of Addenda: 0 Note Initiated On: 09/05/2024 1:39 PM Scope In: Scope Out: Endoscopy Department at [facility] - [address] [place] [id number] Procedure Note Debbie Helm MD - 09/05/2024 [facility] GI Patient Name: Crystal Roblero Procedure Date: [...] for malignantneoplasm of colon CPT copyright 2020 [employer]. All rights reserved. The codes documented in this report are preliminary and upon cross tie turner reviewmay be revised to meet current compliance requirements. Debbie Helm MD 09/05/2024 1:55:02 PM This report has been signed electronically.Debbie Helm MD Number of Addenda: 0 Note Initiated On: 09/05/2024 1:39 PM Scope In: Scope Out: Endoscopy Department at [facility] - [address] [place] [phone] IMPRESSION: - The examined portion of the ileum was normal. - The entire examined colon is normal on direct and retroflexion views. - No specimens collected. Recommendation: - Repeat colonoscopy in 10 years for screening purposes. Debbie Heml MD GI~PROCEDURE ORDERABLES Final Result * POC [...] Insurance MEDICAID - [place] MEDICARE Care Teams Binder Operator Relationship Specialty Start Date End Date Renuka Ramírez MD [address] [phone] PCP - General Internal Medicine 07/02/24
[2024-11-04 08:10] LABS: MANUAL DIFF FLAG NO
--- NOTE | 2024-11-04 08:19 | ECG_ITS ---
Test Reason : QTC CHECK Blood Pressure : */* mmHG Vent. Rate : 62 BPM Atrial Rate : 62 BPM P-R Int : 124 ms QRS Dur : 78 ms QT Int : 412 ms P-R-T Axes : 25 71 62 degrees QTcB Int : 418 ms Normal sinus rhythm Normal ECG When compared with ECG of 07-Aug-2024 09:34, No significant change was found Referred By: Dee Griffin Electronically Signed By: GILBERTO ROSALES
[2024-11-04 08:35] LABS: Hematocrit 41.0 % (37.0-47.0); Hemoglobin 13.5 g/dl (12.0-16.0); Imm Gran Abs Auto 0.02 X10*3/uL (0.00-0.03); Imm Gran Pct Auto 0.2 % (0.0-0.4); Lymphocytes Absolute Auto 3.1 X10*3/uL (1.2-4.9); Mean Corpuscular HGB Conc 32.9 g/dl (31.0-35.0); Mean Corpuscular Hemoglobin 29.3 pg (27.0-33.0); Mean Corpuscular Volume 88.9 fL (80.0-98.0); NRBC Abs Auto 0.000 X10*3/uL (0.0-0.012); NRBC Pct Auto 0.0 /100WBC (0.0-0.2); Platelet Count 275 X10*3/uL (160-400); Red Blood Count 4.61 X10*6/uL (4.20-5.50); White Blood Count 8.3 X10*3/uL (4.8-10.8)
[2024-11-04 09:00] LABS: Carbamazepine Tegretol 8.9 mcg/mL (5.0-12.0)
[2024-11-04 09:12] LABS: Osmolality, Serum 311 mosm/kg (281-305)
[2024-11-04 09:17] LABS: Anion Gap 12 (12-20); Blood Urea Nitrogen 13 mg/dL (9-16); Calcium 8.9 mg/dL (8.4-10.2); Carbon Dioxide 27 mmol/L (22-29); Chloride 108 mmol/L (96-108); Estimated Glomerular Filt Rate 59; Potassium 3.9 mmol/L (3.3-5.1); Sodium 143 mmol/L (135-145)
[2024-11-04 09:25] LABS: Free T4 (Free Thyroxine) 0.83 ng/dL (0.71-1.85); Thyroid Stimulating Hormone 4.11 uIU/mL (0.32-4.0)
[2024-11-04 09:31] LABS: Folate 4.6 ng/mL (> or = 4.0); Vitamin B12 188 pg/mL (200-900)
[2024-11-04 09:44] LABS: Appearance Urine Clear; Glucose Urine UA Negative (Negative); PH 6.0 (5.0-9.0); Specific Gravity - Urine 1.015 (1.005-1.025)
[2024-11-06 18:28] LABS: Anti Nuclear Antibody Screen POSITIVE (NEGATIVE); Anti Nuclear Antibody Titer 1:640 titer
[2024-11-10 16:33] LABS: MTHFR Mutation Detection POSITIVE
== END 2024-11-04 07:50 | disposition home or self-care (01) ==
LOC: HO.LAB 07:49
PROVIDERS: PCP Student in an Organized Health Care Education/Training Program; Visit Provider Psychiatry & Neurology Psychiatry
DX: Z01.84 Encounter for antibody response examination (principal); F31.81 Bipolar II disorder; N25.1 Nephrogenic diabetes insipidus; D52.9 Folate deficiency anemia, unspecified; Z13.6 Encounter for screening for cardiovascular disorders
CPT/HCPCS: 36415; 80048; 80156; 81003; 81291; 82306; 82607; 82746; 83090; 83930; 83935; 84425; 84439; 84443; 85025; 86038; 86039; 93005

== ENCOUNTER → 2024-11-04 08:19 | Outpatient (BNV) | payer MEDICARE, MEDICAID, SELFPAY | PROVIDERS: PCP Student in an Organized Health Care Education/Training Program; Visit Provider Internal Medicine | DX: Z13.6 Encounter for screening for cardiovascular disorders (principal) | CPT/HCPCS: 93010 ==

== ENCOUNTER 2025-01-06 14:11 | Outpatient (REF) | payer MEDICARE, MEDICAID, SELFPAY ==
--- NOTE | 2025-01-06 14:17 | ECG_ITS ---
Test Reason : QTC CHECK Blood Pressure : */* mmHG Vent. Rate : 93 BPM Atrial Rate : 93 BPM P-R Int : 126 ms QRS Dur : 78 ms QT Int : 342 ms P-R-T Axes : 73 71 57 degrees QTcB Int : 425 ms Normal sinus rhythm Possible Left atrial enlargement Nonspecific ST abnormality Abnormal ECG When compared with ECG of 04-Nov-2024 08:24, Vent. rate has increased by 31 bpm Referred By: Dee Griffin Electronically Signed By: GILBERTO ROSALES
[2025-01-06 14:46] LABS: MANUAL DIFF FLAG NO
[2025-01-06 15:04] LABS: Appearance Urine Clear; Glucose Urine UA Negative (Negative); PH 6.5 (5.0-9.0); Specific Gravity - Urine 1.015 (1.005-1.025)
[2025-01-06 15:08] LABS: Hematocrit 41.2 % (37.0-47.0); Hemoglobin 13.7 g/dl (12.0-16.0); Imm Gran Abs Auto 0.04 X10*3/uL (0.00-0.03); Imm Gran Pct Auto 0.4 % (0.0-0.4); Lymphocytes Absolute Auto 2.7 X10*3/uL (1.2-4.9); Mean Corpuscular HGB Conc 33.3 g/dl (31.0-35.0); Mean Corpuscular Hemoglobin 29.1 pg (27.0-33.0); Mean Corpuscular Volume 87.5 fL (80.0-98.0); NRBC Abs Auto 0.000 X10*3/uL (0.0-0.012); NRBC Pct Auto 0.0 /100WBC (0.0-0.2); Platelet Count 309 X10*3/uL (160-400); Red Blood Count 4.71 X10*6/uL (4.20-5.50); White Blood Count 10.2 X10*3/uL (4.8-10.8)
[2025-01-06 15:34] LABS: Osmolality, Serum 296 mosm/kg (281-305)
[2025-01-06 15:39] LABS: Alanine Aminotransferase 19 U/L (0-31); Albumin Level 4.4 g/dL (3.5-5.0); Alkaline Phosphatase 85 U/L (39-117); Anion Gap 13 (12-20); Aspartate Amino Transferase 16 U/L (5-31); Blood Urea Nitrogen 13 mg/dL (9-16); Calcium 9.2 mg/dL (8.4-10.2); Carbon Dioxide 25 mmol/L (22-29); Chloride 108 mmol/L (96-108); Estimated Glomerular Filt Rate 59; Magnesium 2.1 mg/dL (1.6-2.6); Potassium 3.9 mmol/L (3.3-5.1); Sodium 142 mmol/L (135-145); Total Protein 7.6 g/dL (6.5-8.0)
[2025-01-06 15:59] LABS: Ferritin 13 ng/mL (10-250); Free T4 (Free Thyroxine) 0.86 ng/dL (0.71-1.85); Thyroid Stimulating Hormone 2.31 uIU/mL (0.32-4.0)
[2025-01-06 16:03] LABS: Folate 6.4 ng/mL (> or = 4.0)
[2025-01-06 16:30] LABS: Lithium 0.41 mmol/L (0.60-1.20)
[2025-01-06 16:49] LABS: Parathyroid Hormone Intact 60.0 pg/mL (8.7-77.1)
[2025-01-07 06:51] LABS: Syphilis Screen Nonreactive (Nonreactive)
--- OUTSIDE RECORDS SUMMARY | 2025-01-07 10:14 | XMS_ITS | Data Portability ---
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 201109/29/2013 RECORDED 02/19/20 12 1:39PM BY SHI BENOIT MA, ANNOTATI ON/ADDEN DUM Not Available [facility] 4 05:37:58 Well child [id number] Completed 201109/29/2013 RECORDED 02/19/20 12 1:39PM BY SHI BENOIT MA, ANNOTATI ON/ADDEN DUM Not Available [facility] 4 05:37:58 Ingrowin g nail [id number] Completed 201109/29/2013 IMPRESSI ON: SOAK FOOT WARM WATER MULTIPLE TIMES A DAY PODIATRY APPT IN CASE NEEDS PARTIAL NAIL REMOVAL. SHE WILL CANCEL APPT IF BETTER.; RECORDED 02/19/20 12 1:39PM BY SHI BENOIT MA, ANNOTATI ON/ADDEN DUM Not Available [facility] 4 05:37:58 Lymphade nopathy [id number] Completed 201109/29/2013 IMPRESSI ON: BILAT, SCALP WITH SKIN LESION CAUSING LEFT OCCIPITA L NODE INVOLVEM ENT; RECORDED 02/19/20 12 1:39PM BY SHI BENOIT MA, KIKAATI ON/ADDEN DUM Not Available [facility] 4 05:37:58 Malaise and fatigue [id number] Completed 201109/29/2013 IMPRESSI ON: ON MEDS BY CHERYL MASON AND IN COUNSELI NG WEEKLY; RECORDED 02/19/20 12 1:40PM BY SHI BENOIT MA, ANNOTATI ON/ADDEN DUM Not Available [facility] 4 05:37:58 Blisters of multiple sites [id number] Completed 201109/29/2013 RECORDED 02/19/20 12 1:39PM BY SHI BENOIT MA, ANNOTATI ON/ADDEN DUM Not Available [facility] 4 05:37:58 Herpetic gingivos tomatiti s [id number] Completed 201109/29/2013 IMPRESSI ON: TX WITH DENAVIR; RECORDED 02/19/20 12 1:39PM BY SHI BENOIT MA, ANNOTATI ON/ADDEN DUM Not Available [facility] 4 05:37:58 Otalgia 78162815 Completed 201109/29/2013 IMPRESSI ON: X 3 DAYS, NO INFECTIO N, SUSPECT JAW JOINT INFLAMMA TION; RECORDED 02/19/20 12 1:40PM BY SHI BENOIT MA, ANNOTATI ON/ADDEN DUM Not Available [facility] 4 05:37:58 Pneumoni a [id number] Completed 201109/29/2013 IMPRESSI ON: IMPROVED ON LEVAQUIN , PREDNISO NE AND INHALERS IN PT WITH ASTHMA, WILL GET REPEAT CXT [facility] IN A WEEK,; RECORDED 02/19/20 12 1:40PM BY SHI BENOIT MA, ANNOTATI ON/ADDEN DUM Not Available [facility] 4 05:37:59 Secondar y polycyth emia [id number] Completed 201109/29/2013 IMPRESSI ON: PT SEEN YEST FOR ATYPICAL ECCHYMOT IC LESIONS. LABS DONE AND HGB TRENDING UP. TO HEM/ONC FOR FURTHER ASSESSME NT. NOT A SMOKER. CASE DISCUSSE D WITH DR. AARON WALKER O; RECORDED 02/19/20 12 1:39PM BY SHI BENOIT MA, ANNOTATI ON/ADDEN DUM Not Available [facility] 4 05:37:59 Right upper quadrant pain [id number] Completed 201109/29/2013 IMPRESSI ON: THE ECCHYMOT IC LESIONS FOLLOW A ZOSTER LIKE PATTERN. THIS COULD BE AN ATYPICAL PRESENTA TION OF SHINGLES . WILL TREAT IN CASE IT IS THIS. WILL CHECK LABS SINCE ECCHYMOT IC AND IN RUQ. REVIEWED CAUTIONS FOR VICODIN. PT ALSO EXAMINED BY DR. APRIL COTTER CALL IF ANY WORSENIN G; RECORDED 02/19/20 12 1:39PM BY SHI BENOIT MA, ANNOTATI ON/ADDEN DUM Not Available [facility] 4 05:37:59 Sprain of shoulder and upper arm Completed 201109/29/2013 RECORDED 02/19/20 12 1:39PM BY SHI BENOIT MA, ANNOTATI ON/ADDEN DUM Not Available [facility] 4 05:37:59 Vaginiti s and vulvovag initis Completed 201109/29/2013 RECORDED 02/19/20 12 1:39PM BY SHI BENOIT MA, ANNOTATI ON/ADDEN DUM Not Available [facility] 4 05:37:59 Acute tonsilli tis [id number] Completed 201209/02/2013 IMPRESSI ON: NEG QUICK STREP; RECORDED 03/06/19 13 1:55PM BY NYDIA CHRISTIANSEN MA, ANNOTATI ON/ADDEN DUM Not Available [facility] 4 14:53:49 Acute tonsilli tis [id number] Completed 201209/29/2013 IMPRESSI ON: NEG QUICK STREP; RECORDED 03/06/19 13 1:55PM BY NYDIA CHRISTIANSEN MA, ANNOTATI ON/ADDEN DUM Not Available [facility] 4 05:37:59 Patient status finding [id number] Completed 201209/02/2013 RECORDED 06/06/19 13 11:40AM BY NYDIA CHRISTIANSEN MA ANNOTATI ON/ADDEN DUM FRIEDA French, [facility] 7 15:01:47 Patient status finding [id number] Completed 201209/29/2013 RECORDED 06/06/19 13 11:40AM BY NYDIA CHRISTIANSEN MA ANNOTATI ON/ADDEN DUM Judie Botello MA null, [facility] 7 15:01:47 Backache [id number] Completed 201209/02/2013 IMPRESSI ON: CALL IN 1 WEEK IF NOT IMPROVIN G. WARNED OF DROWSINE SS WITH VICODIN AND FLEXERIL ; RECORDED 09/25/19 13 4:19PM BY NYDIA CHRISTIANSEN MA, ANNOTATI ON/ADDEN DUM Idalmis nicolas null, [facility] 7 16:11:29 Screenin g for malignan t neoplasm of cervix Completed 201209/02/2013 RECORDED 09/25/19 13 4:19PM BY NYDIA CHRISTIANSEN MA ANNOTATI ON/ADDEN DUM Not Available Pending sale to [facility] 4 14:53:45 Dysmenor rocael [id number] Completed 201209/02/2013 IMPRESSI ON: NL EXAM PAP AND CXS TODAY; RECORDED 09/25/19 13 4:19PM BY NYDIA CHRISTIANSEN MA, ANNOTATI ON/ADDEN DUM Not Available [facility]ending [facility] to [facility] 4 14:53:46 Fall on or from stairs or steps Completed 201209/02/2013 RECORDED 09/25/19 13 4:19PM BY NYDIA CHRISTIANSEN MA, ANNOTATI ON/ADDEN DUM Not Available [facility]ending [facility] to [facility] 4 14:53:46 Pain in limb 42882237 Completed 201209/02/2013 IMPRESSI ON: LIKELY CONTUSIO N WILL MAKE SURE NO FRACTURE ; RECORDED 09/25/19 13 4:19PM BY NYDIA CHRISTIANSEN MA, ANNOTATI ON/ADDEN DUM Not Available [facility] 4 14:53:48 Disorder of skin and/or subcutan eous tissue 46486731 Completed 201209/02/2013 IMPRESSI ON: SKIN OF VULVA WITH 6 REDDISH LESIONS SEEMS LIKE VASCULAR LESIONS BUT WILL HAVE DERM CHECK OUT; RECORDED 09/25/19 13 4:19PM BY NYDIA CHRISTIANSEN MA, ANNOTATI ON/ADDEN DUM Not Available [facility] 4 14:53:48 Backache [id number] Completed 201209/29/2013 IMPRESSI ON: CALL IN 1 WEEK IF NOT IMPROVIN GJaycob WARNED OF DROWSINE SS WITH VICODIN AND FLEXERIL ; RECORDED 09/25/19 13 4:19PM BY NYDIA CHRISTIANSEN MA, ANNOTATI ON/ADDEN DUM Idalmis prajapati MA - [facility] 7 16:11:29 Screenin g for malignan t neoplasm of cervix Completed 201209/29/2013 RECORDED 09/25/19 13 4:19PM BY NYDIA CHRISTIANSEN MA, ANNOTATI ON/ADDEN DUM Not Available [facility] 4 05:37:58 Dysmenor rocael [id number] Completed 201209/29/2013 IMPRESSI ON: NL EXAM PAP AND CXS TODAY; RECORDED 09/25/19 13 4:19PM BY NYDIA CHRISTIANSEN MA, ANNOTATI ON/ADDEN DUM Not Available [facility] 4 05:37:58 Fall on or from stairs or steps Completed 201209/29/2013 RECORDED 09/25/19 13 4:19PM BY NYDIA CHRISTIANSEN MA, KIKAATI ON/ADDEN DUM Not Available [facility] 4 05:37:58 Pain in limb [id number] Completed 201209/29/2013 IMPRESSI ON: LIKELY CONTUSIO N WILL MAKE SURE NO FRACTURE ; RECORDED 09/25/19 13 4:19PM BY NYDIA CHRISTIANSEN MA, ANNOTATI ON/ADDEN DUM Not Available [facility] 4 05:37:59 Disorder of skin and/or subcutan eous tissue 92742508 Completed 201209/29/2013 IMPRESSI ON: SKIN OF VULVA WITH 6 REDDISH LESIONS SEEMS LIKE VASCULAR LESIONS BUT WILL HAVE DERM CHECK OUT; RECORDED 09/25/19 13 4:19PM BY NYDIA CHRISTIANSEN MA, ANNOTATI ON/ADDEN DUM Not Available [facility] 4 05:37:59 Influenz a vaccine needed [id number] 06 Completed 201209/02/2013 RECORDED 10/26/19 13 2:51PM BY JUDIE BOTELLO, OFFICE VISIT Not Available [facility] 4 14:53:46 Influenz a vaccine needed [id number] 06 Completed 201209/29/2013 RECORDED 10/26/19 13 2:51PM BY JUDIE BOTELLO, OFFICE VISIT Not Available Pending sale to [facility] 4 05:37:58 Diarrhea [id number] Completed 201209/02/2013 IMPRESSI ON: NEW PROBLEM, PT WILL SEE DR MARION FOR EVAL,; RECORDED 01/11/20 13 10:05AM BY SHI BENOIT MA, ANNOTATI ON/ADDEN DUM Not Available [facility] 4 14:53:45 Eruption [id number] Completed 201209/02/2013 IMPRESSI ON: FROM PICKING HER HEAD WITH NERVES, NO INFECTIO N, TREAT WITH CREAM; RECORDED 01/11/20 13 10:05AM BY SHI BENOIT MA, MELITON ON/ADDEN DUM Judie Botello MA [facility] 7 15:02:11 Diarrhea [id number] Completed 201209/29/2013 IMPRESSI ON: NEW PROBLEM, PT WILL SEE DR MARION FOR EVAL,; RECORDED 01/11/20 13 10:05AM BY SHI BENOIT MA, ANNOTATI ON/ADDEN DUM Not Available Pending sale to [facility] 4 05:37:58 Eruption [id number] Completed 201209/29/2013 IMPRESSI ON: FROM PICKING HER HEAD WITH NERVES, NO INFECTIO N, TREAT WITH CREAM; RECORDED 01/11/20 13 10:05AM BY SHI BENOIT MA, MELITON ON/ADDEN DUM FRIEDA French, [facility] 7 15:02:11 Anemia [id number] Completed 201303/30/2016 RECORDED 06/21/19 14 2:38PM BY SHI BENOIT MA, OFFICE VISIT Idalmis prajapati [facility] 7 16:11:49 Alopecia [id number] Completed 201303/30/2016 RECORDED 06/21/19 14 2:38PM BY SHI BENOIT MA, OFFICE VISIT Idalmis prajapati [facility] 7 16:12:02 Anxiety state 633623178 Active 2013 FRIEDA Goyal, [facility] 8 15:03:46 Asthma 620881699 Completed 201310/02/2019 Idalmis prajapati, [facility] 0 10:11:13 Bipolar I disorder 681830788 Active 2013 FRIEDA Goyal, [facility] 8 15:03:43 Disorder of coccyx 11797907 Completed 201303/30/2016 IMPRESSI ON: PAIN FORM FALL NO XRAY NEEDED, TIME AND MOTRIN; RECORDED 06/21/19 14 2:38PM BY SHI BENOIT MA, OFFICE VISIT Idalmis prajapati [facility] 7 16:12:05 History of depressi on 370725096 Completed 201309/02/2013 RECORDED 06/21/19 14 2:38PM BY SHI BENOIT MA, ANNOTATI ON/ADDEN DUM Not Available [facility] 4 14:53:45 Adult health examinat ion Completed 201309/02/2013 IMPRESSI ON: NOT DUE FOR A PAP, BREAST EXAM TODAY, INCREASE EXERCISE ; RECORDED 06/21/19 14 2:37PM BY SHI BENOIT MA, ANNOTATI ON/ADDEN DUM Not Available [facility] 4 14:53:46 Pain of hip region 98001083 Completed 201303/30/2016 IMPRESSI ON: FELL 10 DAYS AGO, PAIN IN BILATERA L HIPS, WILL GET XRAY TO RULE OUT FRACTURE THOUGH UNLIKELY MOTRINA ND REST; RECORDED 06/21/19 14 2:38PM BY SHI BENOIT MA, OFFICE VISIT Idalmis prajapati [facility] 7 16:11:59 Impacted cerumen 07852738 Completed 201303/29/2016 IMPRESSI ON: EAR LAVAGE PERFORME D, CERUMEN REMOVED; RECORDED 06/21/19 14 4:08PM BY AMARILIS LE, OFFICE VISIT FRIEDA French, [facility] 7 15:01:56 Insomnia [id number] Completed 201303/30/2016 IMPRESSI ON: BETTER MEDS HELPING; RECORDED 06/21/19 14 2:38PM BY SHI BENOIT MA, OFFICE VISIT Idalmis prajapati [facility] 7 16:11:37 Low back pain 934768592 Completed 201309/02/2013 IMPRESSI ON: FOR MONTHS, HX OF A FEW FALLS, PT TO SET UP PT ORDER TO PT TODAY; RECORDED 06/21/19 14 2:38PM BY SHI BENOIT MA, ANNOTATI ON/ADDEN DUM FRIEDA French [facility] 7 15:02:14 Single major depressi ve episode Completed 201311/23/2016 IMPRESSI ON: ON MEDS BUT DEPRESSI ON IS ACTIVE, CONTINUE MEDS AND PSYCHIAT RY AND COUNSELI NG VISITS; RECORDED 06/21/19 14 2:38PM BY SHI BENOIT MA, OFFICE VISIT Idalmis prajapati [facility] 7 13:39:20 Neoplasm of uncertai n behavior of skin 33379845 Completed 201303/30/2016 IMPRESSI ON: NODULE IN EAR WITH TELENGIE CTASIA CONCERNI NG FOR MALIGNAN CY. ENT TO FURTHER ASSESS; RECORDED 06/21/19 14 4:06PM BY AMARILIS LE, OFFICE VISIT Idalmis prajapati [facility] 7 16:12:10 Patient status finding [id number] Completed 201303/29/2016 RECORDED 06/21/19 14 2:38PM BY SHI BENOIT MA, OFFICE VISIT FRIEAD French, [facility] 7 15:01:47 Otitis media 04153896 Completed 201303/29/2016 IMPRESSI ON: UNCLEAR IF REALLY INFECTED . SHE WILL DO FLONASE AND MUCINEX- D FOR 2 DAYS. IF NOT BETTER, SHE WILL START ABX; RECORDED 06/21/19 14 4:08PM BY AMARILIS LE, OFFICE VISIT FRIEDA French, [facility] 7 15:02:45 History of psychiat chiki disorder 210742557 Completed 201303/30/2016 RECORDED 06/21/19 14 2:38PM BY SHI BENOIT MA, OFFICE VISIT Idalmis prajapati [facility] 7 16:11:26 Acute upper respirat ory infectio n 44770834 Completed 201303/29/2016 RECORDED 06/21/19 14 3:30PM BY AMARILIS LE, OFFICE VISIT FRIEDA French, [facility] 7 15:02:38 History of depressi on 757823764 Completed 201309/29/2013 RECORDED 06/21/19 14 2:38PM BY SHI BENOIT MA, ANNOTATI ON/ADDEN DUM Not Available [facility] 4 05:37:58 Adult health examinat ion Completed 201309/29/2013 IMPRESSI ON: NOT DUE FOR A PAP, BREAST EXAM TODAY, INCREASE EXERCISE ; RECORDED 06/21/19 14 2:37PM BY SHI BENOIT MA, ANNOTATI ON/ADDEN DUM Not Available [facility] 4 05:37:58 Low back pain 491029205 Completed 201309/29/2013 IMPRESSI ON: FOR MONTHS, HX OF A FEW FALLS, PT TO SET UP PT ORDER TO PT TODAY; RECORDED 06/21/19 14 2:38PM BY SHI BENOIT MA, MELITON ON/ADDEN DUM FRIEDA French, [facility] 7 15:02:14 Dysfunct ional uterine bleeding Active 2016 FRIEDA Goyal, [facility] 8 15:03:51 Hypothyr oidism 18203719 Active 2017 FRIEDA Goyal, [facility] 8 15:04:12 History of intestin al infectio n caused by Clostrid ioides difficil e [id number] 9101 Completed 201704/10/2023 JARVIS NGUYEN MD [address] [facility] [address], [place], [address] , [facility] 4 08:20:32 Mild intermit tent asthma 563818087 Active 2019 Idalmis nicolas null, [facility] 0 10:09:22 Eczema 12161089 Active 2020 Judie Botello MA null, [facility] 1 15:05:27 Psoriasi s 4440556 Active 2022 Dominga Jameson [facility], [facility] 3 07:52:52 Irritabl e bowel syndrome with diarrhea 546937298 Active 2022 Dominga Jameson [facility], [facility] 3 07:53:26 Problem Notes None recorded. Procedures Surgical History Date Name Laterality Status Provider Name and Address Organization Details Recorded Time 10/17/19 25 Cerumen Removal completed JARVIS NGUYEN MD [address] [facility] [address] [facility], [place], [address], [facility] 10/16/2024 14:35:12 05/16/19 25 Most Recent Mammogram completed Katharina Alvarez [facility] 05/16/2024 12:53:24 05/16/19 25 Mammogram screening completed Katharina Alvarez [facility] 05/16/2024 12:53:06 07/15/19 23 Dressing Change completed JARVIS NGUYEN MD [address] [facility] [address] [facility], [place], [address], [facility] 07/14/2022 07:44:40 06/20/19 23 Suture/Staple removal completed JARVIS NGUYEN MD [address] [facility] [address] [facility], [place], [address], [facility] 06/19/2022 10:34:36 06/17/19 23 Suture/Staple removal completed JARVIS NGUYEN MD [address] [facility] [address] [facility], [place], [address], [facility] 06/15/2022 09:30:10 12/21/19 21 Date of Last Pap Smear completed Judie Botello MA [facility] 12/22/2020 11:07:59 05/03/19 19 Mini-Cog Test completed Judie Botello MA [facility] 05/02/2018 08:44:28 07/25/19 17 Mini-Cog Test completed Judie Botello MA [facility] 07/24/2016 14:56:47 10/01/19 16 Suture/Staple removal completed Estrellita Pitt PA-C [address] [facility] [address] [facility], [place], [address], [facility] 10/01/2015 14:56:47 Tonsillectomy completed Shi Benoit [facility] 09/04/2013 15:46:02 Imaging Results None recorded. Procedure Notes None recorded. Medical Equipment None Reported. Allergies Allergen ID Allergen Name Allergen Category Reaction Reaction Severity Criticality Documentation Date Start Date Code Code System Note Provider Name and Address Organization Details Recorded Time 42052 Elimite medicatio n rash Not available Not available 10/22/2013 58300 5 RxNorm Idalmisfish Ny-D bethelmiah prajapati [facility] 4 11:49:40 6664 Augmentin medicatio n diarrhea Not available Not available 09/02/20132013 37604 2 [facility] 8 15:06:49 6665 No known allergy (situatio n) Not available Not available Not available Not available 09/02/20132011 29760 6003 SNOMED COMME NT: RECOR DED 11/01 10:34 AM BY SAL GUTHRIE MA, ANNOT ATION /ADDE NDUM; Not Available [facility] 4 13:24:03 Medications Name Sig Start [...] Not Available clonidine HCl 0.1 mg tablet TAKE 1 TABLET BY MOUTH 3 TIMES A DAY 10/16 completed Not Available Not Available Not Available prednison e 10 mg tablet 03/29 completed Not Available Not Available Not Available doxycycli ne hyclate 100 mg capsule Take 1 capsule twice a day by oral route for 7 days. 11/24 completed Not Available Not Available Not Available benztropi ne 0.5 mg tablet Noted per discharg e 1mg daily as of 5TAKE 1 TABLET BY MOUTH TWICE A DAY FOR DYSTONIC REACTION 10/16 completed Not Available Not Available Not Available ketoconaz ole 2 % shampoo APPLY 1 APPLICAT ION TWICE A WEEK BY TOPICAL ROUTE FOR 30 DAYS. active Not Available Not Available No t Available tizanidin e 2 mg tablet Take [...] tablet TAKE 1 TABLET BY MOUTH EVERY 8 HOURS NEEDED FOR MENSTURA L PAIN active Not Available Not Available No t Available fluconazo le 150 mg tablet DAILY 03/08 completed RECORDED 03/13/19 13 3:49PM BY IDALMIS Ramsay MD, MEDICATI ON AUTO-EMERY CTIVATIO N; Not Available Not Available Not Available doxepin 25 mg capsule as needed active RECORDED 06/21/19 14 2:40PM BY SHI BENOIT MA, OFFICE VISIT; Not Available Not Available [...] completed Not Available Not Available Not Available Tegretol XR 200 mg tablet,ex tended release Take 1 tablet every 12 hours by oral route. active Not Available Not Available No t Available Dandruff Shampoo (pyrithio ne zinc) 1 % 06/24 completed RECORDED 06/25/19 10 1:45PM BY HEATH SMITH, [facility]; Not Available Not Available Not Available fluconazo le 200 mg tablet QD 06/03 completed RECORDED 06/19/19 09 10:26AM BY CHIN DIETZ MD, MEDICATI ON AUTO-EMERY CTIVATIO N; Not Available Not Available Not Available carbamaze pine ER 100 mg tablet,ex tended release,1 2 hr TAKE 1 TABLET BY MOUTH 2 TIMES A DAY 10/16 completed Not Available Not Available Not Available phenazopy [...] 1/2 TABLET TWICE A DAY BY MOUTH 10/16 completed Not Available Not Available Not Available propranol ol ER 60 mg capsule,2 4 hr,extend ed release 1 po qd 04/15 completed on hold Not Available Not Available Not Available Phenergan 25 mg tablet Q 6HR/PRN 10/03 completed RECORDED 10/13/19 07 4:07PM BY KIMBER BAKER, MEDICATI ON AUTO-EMERY CTIVATIO N; Not Available Not Available Not Available fluoxetin e 10 mg tablet 03/29 completed Not Available Not Available Not Available olanzapin e 5 mg tablet TAKE 1-2 TABLETS BY MOUTH DAILY AT BEDTIME 10/16 completed Not Available Not Available Not Available clonazepa m 1 mg tablet UP TO TID PRN active Not Available Not Available No t Available atenolol 25 mg tablet TAKE 1 TABLET BY MOUTH TWICE A DAY DIRECTED 10/16 completed Not Available Not Available Not Available clobetaso l 0.05 % topical cream APPLY A THIN LAYER TO THE AFFECTED AREA(S) BY TOPICAL ROUTE 2 TIMES PER DAY FOR 2 WEEKS active Not Available Not Available No t Available permethri n 5 % topical cream APPLY (THOROUG HLY MASSAGE INTO SKIN FROM HEAD TO SOLES OF FEET) BY TOPICAL ROUTE ONCE LEAVE ON FOR 8-14 HR, THEN REMOVE BY THOROUGH WASHING active Not Available Not Available No t Available methylphe nidate ER 10 mg tablet,ex tended release TAKE 1 TABLET BY MOUTH EVERY MORNING 09/16 completed Not Available Not Available Not Available penicilli n V potassium 500 mg tablet 07/27 completed Not Available Not Available Not Available olanzapin e 10 mg tablet TAKE 1 TABLET BY MOUTH AT BEDTIME 10/16 completed Not Available Not Available Not Available lithium carbonate ER 300 mg tablet,ex tended release TAKE 1 TABLET BY MOUTH TWICE A DAY 09/16 completed Not Available Not Available Not Available risperido ne 0.25 mg tablet TAKE 1/2 TO 1 TABLET BY MOUTH TWICE A DAY NEEDED FOR AGITATIO N active Not Available Not Available No t Available Motrin 600 mg tablet Q 6HRS PRN PAIN 06/24 completed RECORDED 06/25/19 10 1:45PM BY HEATH SMITH, ANNOTATI ON/ORALIAZOIE DUM; Not Available Not Available Not Available [...] completed Not Available Not Available Not Available olanzapin e 2.5 mg tablet TAKE 1 TABLET BY MOUTH 2 TIMES A DAY NEEDED FOR AGITATIO N, ANXIETY 10/16 completed Not Available Not Available Not Available quetiapin e 100 mg tablet TAKE 1 TABLET BY MOUTH DAILY AT BEDTIME 10/16 completed Not Available Not Available Not Available triamcino lone acetonide 0.1 % topical cream Apply by topical route for 15 days. 11/27 completed Not Available Not Available Not Available bupropion HCl SR 100 mg tablet,12 hr sustained -release TAKE 1 TABLET BY MOUTH EVERY MORNING DIRECTED 10/16 completed Not Available Not Available Not Available lithium carbonate ER 450 mg tablet,ex tended release TAKE 1 TABLET BY MOUTH AT BEDTIME 10/16 completed Not Available Not Available Not Available [...] Not Available No t Available levothyro xine 100 mcg tablet TAKE [...] Available Not Available Not Available propranol ol 10 mg tablet TAKE 1 TABLET BY MOUTH TWICE A DAY 10/16 completed Not Available Not Available Not Available [...] 2 TIMES A DAY NEEDED FOR ANXIETY 10/16 completed Not Available Not Available Not Available [...] Not Available lithium carbonate 300 mg capsule TAKE 1 CAPSULE BY MOUTH TWICE A DAY 10/16 completed Not Available Not Available Not Available [...] Not Available Not Available No t Available clotrimaz ole-betam ethasone 1 %-0.05 % topical cream APPLY TO AFFECTED AND SURROUND ING AREAS FOR 2 WEEKS IN THE MORNING AND EVENING FOR 2 WEEKS active Not Available Not Available No t Available divalproe x ER 500 mg tablet,ex tended release 24 hr TAKE 2 TABLETS BY MOUTH EVERY DAY DIRECTED 10/16 completed Not Available Not Available Not Available polymyxin B sulfate 10,000 unit-trim ethoprim 1 mg/mL eye drops 04/27 completed Not Available Not Available Not Available methylphe nidate ER 20 mg tablet,ex tended release TAKE 1 TABLET BY MOUTH EVERY MORNING active Not Available Not Available No t Available benztropi ne 1 mg tablet TAKE 1 TABLET BY MOUTH AT BEDTIME [...] CAPSULE BY MOUTH TWICE A DAY DIRECTED 10/16 completed Not Available Not Available Not Available omeprazol [...] 1 TABLET BY MOUTH EVERY DAY DIRECTED 10/16 completed Not Available Not Available Not Available olanzapin e 15 mg tablet Take 1 tablet every day by oral route. 11/21 completed Not Available Not Available Not Available bisacodyl 5 mg tablet,de layed release TAKE 2 TABLETS BY MOUTH RIGHT BEFORE BEGINNIN G BOWEL PREP. SEE INSTRUCT IONS PROVIDED BY THE OFFICE 10/16 completed Not Available Not Available Not Available mupirocin 2 % topical ointment APPLY A SMALL AMOUNT TO THE AFFECTED AREA BY TOPICAL ROUTE 3 TIMES PER DAY 10/18 completed Not Available Not Available Not Available zolpidem 5 mg tablet TAKE 1 TABLET BY MOUTH EVERY DAY AT BEDTIME NEEDED FOR INSOMNIA active Not Available Not Available No t Available metoprolo l succinate ER 25 mg tablet,ex tended release 24 hr TAKE 1 TABLET BY MOUTH EVERY DAY active Not Available Not Available No t Available nystatin 100,000 unit/gram topical powder BID 06/24 completed RECORDED 06/25/19 10 1:45PM BY MELITON COFFEY ON/SLIM MANNING; Not Available Not Available Not Available olanzapin e 15 mg disintegr ating tablet TAKE 1 TABLET BY MOUTH AT BEDTIME 10/16 completed Not Available Not Available Not Available lorazepam 1 mg tablet TAKE 1 TABLET BY MOUTH EVERY DAY NEEDED FOR ANXIETY active Not Available Not Available No t Available zaleplon 5 mg capsule Take by [...] sulfate HFA 90 mcg/actua tion aerosol inhaler INHALE 2 PUFF(S) EVERY 4 HOURS BY INHALATI ON ROUTE DIRECTED FOR 30 DAYS. active Not Available Not Available No t [...] Available clotrimaz ole 1 % topical cream APPLY TWICE A DAY FOR 2 WEEKS active Not Available Not Available No t Available betametha sone dipropion ate 0.05 % [...] completed Not Available Not Available Not Available olanzapin e 20 mg tablet TAKE 1 TABLET BY MOUTH EVERY DAY AT BEDTIME active Not Available Not Available No t Available lamotrigi ne 100 mg tablet active Not Available Not Available Not Available dextroamp hetamine- amphetami ne 5 mg tablet TAKE 1 TABLET BY MOUTH TWICE A DAY DIRECTED AT LEAST 4-6 HOURS APART 10/16 completed Not Available Not Available Not Available risperido ne 0.5 mg tablet TAKE 1/2 TO 1 TABLET BY MOUTH TWICE A DAY DIRECTED 10/16 completed Not Available Not Available Not Available naproxen 500 mg tablet TWO TIMES DAILY 12/22 completed Not Available Not Available Not Available mometason e 0.1 % topical cream APPLY A THIN LAYER TO THE AFFECTED AREA(S) BY TOPICAL ROUTE ONCE DAILY active Not Available Not Available No t Available diazepam 5 mg tablet TAKE 1 TABLET (5 MG) BY MOUTH 2 TIMES A DAY FOR DYSTONIC REACTION FOR 30 DAYS active Not Available Not Available No t Available progester one micronize d 100 mg capsule PLEASE SEE ATTACHED FOR DETAILED DIRECTIO NS active Not Available Not Available No t [...] TABLET BY MOUTH TWICE A DAY DIRECTED 10/16 completed Not Available Not Available Not Available cyclobenz aprine 5 mg tablet EVERY 8 HRS NEEDED FOR MUSCLE SPASM 06/15 completed RECORDED 06/19/19 13 2:01PM BY JUDIE BOTELLO, CHRISTIANATI ON AUTO-EMERY CTIVATIO N; Not Available Not Available Not Available aripipraz ole 5 mg tablet QD 09/17 completed RECORDED 09/18/19 10 8:54AM BY TAO JUAREZ, OFFICE VISIT;[facility] Not Available Not Available Not Available Spiriva with [employer] r 18 mcg and inhalatio n capsules active Not Available Not Available Not Available carbamaze pine ER 200 mg capsule,e xtended release [id number] r TAKE 2 CAPSULES BY MOUTH TWICE A DAY 10/16 completed Not Available Not Available Not Available carbamaze pine ER 300 mg capsule,e xtended release [id number] r TAKE 1 CAPSULE BY MOUTH TWICE A DAY active Not Available Not Available No t Available tizanidin e 2 mg capsule TAKE [...] 24 hr TAKE 1 TABLET BY MOUTH BY MOUTH DAILY AT BEDTIME 10/16 completed Not Available Not Available Not Available quetiapin e ER 300 mg tablet,ex tended release 24 hr TAKE 1 TABLET BY MOUTH AT BEDTIME 10/16 completed Not Available Not Available Not Available quetiapin e ER 200 mg tablet,ex tended release 24 hr TAKE 1 TABLET BY MOUTH AT BEDTIME 10/16 completed Not Available Not Available Not Available quetiapin e ER 50 mg tablet,ex tended release 24 hr TAKE 2 TABLETS BY MOUTH EVERY DAY AT 5PM 10/16 completed Not Available Not Available Not Available quetiapin e ER 150 mg tablet,ex tended release 24 hr TAKE 1 TABLET BY MOUTH EVERY DAY 10/16 completed Not Available Not Available Not Available GaviLyte- G 236 gram-22.7 4 gram-6.74 gram-5.86 gram oral solution DRINK HALF GALLON AT 6PM NIGHT BEFORE PROCEDUR E AND 2ND HALF 5 HOURS BEFORE 8OZ GLASSES AT OWN PACE 10/16 completed Not Available Not Available Not Available guanfacin e ER 2 mg tablet,ex tended release 24 hr TAKE 1 TABLET BY MOUTH EVERY MORNING 07/22 completed Not Available Not Available Not Available guanfacin e ER 1 mg tablet,ex tended release 24 hr TAKE 1 TABLET BY MOUTH EVERY DAY AT 5 PM active Not Available Not Available No t Available guanfacin e ER 3 mg tablet,ex tended release 24 hr TAKE 1 TABELT BY MOUTH EVERY MORNING 10/16 completed Not Available Not Available Not Available Latuda 20 mg tablet active Not Available Not Available No t Available Banophen 50 mg capsule TAKE 1-2 CAPSULES ORALLY AT BEDTIME NEEDED FOR SLEEP 10/16 completed Not Available Not Available Not Available Vicodin 5 mg-300 mg tablet EVERY 6 HRS NEEDED FOR PAIN 06/15 completed RECORDED 06/19/19 13 2:01PM BY JUDIE BOTELLO, MEDICATI ON AUTO-EMERY CTIVATIO N; Not Available Not Available Not Available memantine 14 mg capsule sprinkle, extended release 24hr TAKE 1 CAPSULE BY MOUTH AT BEDTIME 10/16 completed Not Available Not Available Not Available memantine [...] TAKE 1 CAPSULE BY MOUTH EVERY DAY 10/16 completed Not Available Not Available Not Available Vraylar 4.5 mg capsule TAKE 1 CAPSULE BY MOUTH DAILY 10/16 completed Not Available Not Available Not Available Vraylar 3 mg capsule TAKE 1 CAPSULE BY MOUTH DAILY FOR DIRECTED 10/16 completed Not Available Not Available Not Available [...] ous kit 1 injction every other week 10/16 completed Not Available Not Available Not Available Vitals Date Recorded Body height Body mass index (BMI) Body weight Oxygen saturation Oxygen saturation in Arterial blood by Pulse oximetry Heart rate Body temperature Systolic And Diastolic Provider Name and Address Organization Details Last Updated DateTime 5 160.02 cm 29.1 kg/m2 33233.5 5 g 100 % 100 % 81 /min 98.5 [degF] 113/81 mm[Hg] Judie Botello MA [facility] 5 11:26:45 Date Recorded Body height Body mass index (BMI) Body weight Heart rate Oxygen saturation Oxygen saturation in Arterial blood by Pulse oximetry Body temperature Systolic And Diastolic Provider Name and Address Organization Details Last Updated DateTime 5 160.02 cm 27.5 kg/m2 59214.8 2 g 137 /min 97 % 97 % 98 [degF] 114/83 mm[Hg] Princess honeycutt MA [facility] 5 09:06:33 Date Recorded Body height Body mass index (BMI) Body weight Heart rate Oxygen saturation Oxygen saturation in Arterial blood by Pulse oximetry Body temperature Systolic And Diastolic Provider Name and Address Organization Details Last Updated DateTime 5 160.02 cm 28.5 kg/m2 35964.3 7 g 101 /min 98 % 98 % 98.1 [degF] 114/82 mm[Hg] Brianna Norwood MA [facility] 5 14:07:16 Date Recorded Body height Body mass index (BMI) Body weight Heart rate Oxygen saturation Oxygen saturation in Arterial blood by Pulse oximetry Body temperature Systolic And Diastolic Provider Name and Address Organization Details Last Updated DateTime 5 160.02 cm 28.2 kg/m2 02575.1 9 g 104 /min 97 % 97 % 98.3 [degF] 113/82 mm[Hg] Brianna Norwood MA [facility] 5 14:47:39 Social History Question Answer Notes LastModified by Organizat ion Details LastModified Time Tobacco Smoking Status Never Smoker Shi prajapati [facility] 09/04/2013 15:53:32 Do You Have An Advance Directive? No Information not available 01/20/2022 Is Blood Transfusion Acceptable In An Emergency? Yes [email or web address] Information not available 10/16/2014 What Is Your Level Of Caffeine Consumption? Occasional Seldom Information not available 08/27/2020 How Much Tobacco Do You Chew? None [email or web address] Information not available 08/04/2019 What Type Of Diet Are You Following? REGULAR Eating Mostly Chicken And Fish [email or web address] Information not available 04/05/2022 Which Illicit Or [...] Take Precautions To Prevent Distracted Driving? Yes [email or web address] Information not available 10/16/2014 How Often Do You Need To Have Someone Help You When You Read Instructions, Pamphlets, Or Other Written Material From Your Doctor Or Pharmacy? Sometimes [email or web address] Information not available 10/16/2014 Have You Served In The ? No [email or web address] Information not available 12/22/2020 Have You Or Anyone In Your Household Had Any Of The Following Symptoms In The Last 14 Days: Sore Throat, Cough, Chills, Body Aches For Unknown Reasons, Shortness Of Breath For Unknown Reasons, Loss Of Smell, Loss Of Taste, Fever At Or Greater Than 100 Degrees Fahrenheit? No [email or web address] Information not available 08/18/2019 Are You Or Anyone In Your Household A Health Care Provider Or Emergency Responder? No [email or web address] Information not available 08/18/2019 To The Best Of Your Knowledge Have You Been In Close Proximity To Any Individual Who Tested Positive For COVID-19? No [email or web address] Information not available 08/18/2019 *AWV ONLY* Are You Presently Prescribed Opioid Medication By PCP Or Specialist? If YES -Provider Assess The Benefit For Other, Non-opioid Pain Therapies Instead, Even If The Patient Does Not Have OUD But Is Possibly At Risk. No [email or web address] Information not available 12/22/2020 Have You Recently Traveled To A COVID-19 High Risk Area Or Gathering In The Last 10 Days? No [email or web address] Information not available 03/18/2020 What Was The Date Of Your Most Recent Tobacco Screening? 06/30/2024 [email or web address] Information not available 06/30/2024 How Many Children Do You Have? 0 Information not available 08/27/2020 What Is Your Relationship Status? Single Information not available 01/20/2022 Seat Belts Used Routinely Yes Information not available 01/20/2022 Are You Sexually Active? Yes Woman Partner [email or web address] Information not available 02/15/2015 Smoke Alarm In Home Yes Information not available 01/20/2022 At What Age Did You Start Smoking Tobacco? 1 [email or web address] Information not available 08/04/2019 How Much Tobacco Do You Smoke? No [email or web address] Information not available 08/04/2019 General Stress Level Medium Information not available 01/20/2022 Do You Use Sunscreen Routinely? Yes [email or web address] Information not available 10/16/2014 Sex: Unknown Functional Status Question Answer Note LastModified by Organizat ion Details LastModified Time What is your level of alcohol consumption? None Information not available 08/27/2020 Do you or have you ever used smokeless tobacco? Never used smokeless tobacco [email or web address] Information not available 08/04/2019 Are you currently employed? No [email or web address] Information not available 02/15/2015 Are you able to walk independently without assistance or assistive devices? [email or web address] Information not available 01/20/2022 Are you able to care for yourself independently? Yes [email or web address] Information not available 02/15/2015 What is your [...] Time Mother Carcinoma in situ of breast [email or web address] Not available 02/15 11:12:37 Maternal Grandmother Carcinoma in situ of breast [email or web address] Not available 02/15 11:12:37 Maternal Grandfather Myocardial infarction [email or web address] Not available 01/20 11:12:37 Notes:No FH of [...] Details Recorded Time Tdap 6 completed FRIEDA Dexter, [facility] 01/20/2022 13:24:33 Influenza, split virus, quadrivalent, PF 5 completed Not Available Pending sale to [facility] 03/08/2019 02:22:02 pneumococcal polysaccharide PPV23 5 completed Not Available Pending sale to [facility] 03/08/2019 02:21:42 COVID-19, mRNA, LNP-S, PF, 30 mcg/0.3 mL dose 1 completed FRIEDA Dexter [facility] 01/20/2022 13:24:02 COVID-19, mRNA, LNP-S, PF, 30 mcg/0.3 mL dose 1 completed FRIEDA Dexter [facility] 01/20/2022 13:24:02 COVID-19, mRNA, LNP-S, PF, 30 mcg/0.3 mL dose 1 completed FRIEDA Dexter, [facility] 01/20/2022 13:24:02 COVID-19, mRNA, LNP-S, bivalent, PF, 30 mcg/0.3 mL dose 2 [facility] 13:24:33 Td (adult), 5 Lf tetanus toxoid, preservative free, adsorbed 4 completed FRIEDA Dexter [facility] 01/20/2022 13:24:33 Influenza, MDCK, quadrivalent, PF 0 completed FRIEDA Dexter, [facility] 01/20/2022 13:24:33 Tdap 3 completed FRIEDA French [facility] 08/17/2022 11:37:19 Influenza, split virus, quadrivalent, PF 3 completed FRIEDA French, [facility] 04/26/2023 14:40:16 Influenza, split virus, quadrivalent, PF 6 completed Not Available Pending sale to [facility] 03/08/2019 02:22:04 Influenza, split virus, quadrivalent, PF 7 completed Not Available Pending sale to [facility] 03/08/2019 02:22:11 Influenza, split virus, quadrivalent, PF 8 completed Not Available [facility] 03/08/2019 02:22:15 Influenza, split virus, trivalent, PF 4 completed Not Available [facility] 03/08/2019 02:21:57 Influenza, split virus, quadrivalent, PF 9 completed Not Available [facility] 03/08/2019 02:22:10 Influenza, split virus, quadrivalent, PF 1 completed Idalmis prajapati [facility] 12/22/2020 11:24:47 Meningococcal MCV4O 6 completed Not Available Pending sale to [facility] 09/02/2013 13:58:38 Influenza, split virus, trivalent, preservative 7 completed Not Available [facility] 09/02/2013 13:58:38 Influenza, split virus, trivalent, preservative 8 completed Not Available [facility] 09/02/2013 13:58:38 Tdap 8 completed Not Available Pending sale to [facility] 09/02/2013 13:58:38 Influenza, split virus, trivalent, preservative 0 completed Not Available [facility] 09/02/2013 13:58:38 Influenza, split virus, trivalent, preservative 1 completed Not Available [facility] 09/02/2013 13:58:38 Influenza, split virus, trivalent, preservative 2 completed Not Available [facility] 09/02/2013 13:58:38 influenza, seasonal, intradermal, preservative free 3 completed Not Available [facility] 09/02/2013 13:58:38 Influenza, split virus, quadrivalent, PF 2 completed Idalmis Torres nzo null, [facility] [place] 12/01/2021 10:15:17 Influenza, split virus, trivalent, PF 4 completed JARVIS NGUYEN MD [address], [place], [address], [facility] [place] 12/21/2023 19:00:12 Past Encounters Encounter ID Performer Location Encounter Start Date Encounter Closed Date Diagnosis/Indication Diagnosis SNOMED-CT Code Diagnosis ICD10 Code Diagnosis IMO Codes Diagnosis Note [id number] Johanne Quinonez [facility] Main Office [address] [facility] [address] [place] [address] 09/04/2013 15:31:37 09/04/2013 17:14:27 Anxiety 31136859 Chest pain 19525604 Abdominal pain [id number] [employer] [address] [facility] [facility] [place] [address] 04/06/2006 00:00:00 [id number] [employer] [address] [facility] [place] [address] 07/20/2005 00:00:00 [id number] [employer] [address] [facility] [place] [address] 08/09/2005 00:00:00 [id number] [employer] er[employer] [address] [facility] [place] [address] 08/24/2005 00:00:00 [id number] auto[employer] erce [address] [facility] [place] [address] 07/04/2006 00:00:00 [id number] [employer]ce [address] [facility] [place] [address] 07/11/2006 00:00:00 [id number] auto[employer] erce [address] [facility] [place] [address] 09/18/2006 00:00:00 [id number] [employer] erce [address] [facility] [place] [address] 12/17/2006 00:00:00 [id number] [address] [address] [place] [address] 12/24/2006 00:00:00 [id number] [employer] [address] [place] [address] 03/20/2007 00:00:00 [id number] auto[employer]ce [address] [place] [address] 06/14/2007 00:00:00 [id number] auto[employer]ce [address] [place] [address] 07/04/2007 00:00:00 [id number] [employer] [address] [place] [address] 01/09/2008 00:00:[id number] [facility] [address] [place] [address] 05/29/2008 00:00:00 [id number] auto[employer]Comm erce [address] [facility] [place] [address] 06/18/2008 00:00:[id number] [facility] [address] [place] [address] 09/24/2008 00:00:00 [id number] [employer]ce [address] [place] [address] 10/05/2008 00:00:00 [id number] auto[employer] erce [address] [place] [address] 11/26/2008 00:00:00 [id number] auto[employer]Comm erce [address] [place] [address] 01/13/2009 00:00:00 [id number] auto[employer] erce [address] [place] [address] 05/13/2009 00:00:00 [id number] auto[employer]Comm erce [address] [place] [address] 06/16/2009 00:00:00 [id number] auto[employer]Comm erce [address] [place] [address] 07/26/2009 00:00:00 [id number] auto[employer]Comm erce [address] [place] [address] 09/17/2009 00:00:00 [id number] auto[employer]Comm erce [address] [place] [address] 01/05/2010 00:00:00 [id number] auto[employer]Comm erce [address] [place] [address] 01/14/2010 00:00:[id number] [facility] [address] [place] [address] 02/17/2010 00:00:[id number] [facility] [address] [place] [address] 06/29/2010 00:00:00 [id number] autoEComm erce [address] [facility] [place] [address] 07/27/2010 00:00:[id number] [facility] [address] [place] [address] 12/01/2010 00:00:[id number] [facility] [address] [place] [address] 12/19/2010 00:00:00 [id number] auto[employer]Comm erce [address] [facility] [place] [address] 01/11/2011 00:00:[id number] [facility] [address] [place] [address] 01/18/2011 00:00:[id number] [facility] [address] [place] [address] 01/24/2011 00:00:00 [id number] auto[employer]Comm erce [address] [place] [address] 02/27/2011 00:00:00 [id number] auto[employer] erce [address] [place] [address] 07/19/2011 00:00:00 [id number] auto[employer]Comm erce [address] [place] [address] 08/14/2011 00:00:00 [id number] auto[employer]Comm erce [address] [place] [address] 08/18/2011 00:00:00 [id number] auto[employer] erce [address] [place] [address] 10/24/2011 00:00:[id number] [facility] [address] [place] [address] 11/02/2011 00:00:[id number] [facility] [address] [place] [address] 02/19/2012 00:00:[id number] [facility] [address] [place] [address] 03/06/2012 00:00:00 [id number] auto[employer]Comm erce [address] [facility] [place] [address] 06/05/2012 00:00:00 [id number] auto[employer] erce [address] [place] [address] 06/10/2012 00:00:[id number] [facility] [address] [place] [address] 06/28/2012 00:00:[id number] [facility] [address] [place] [address] 09/24/2012 00:00:00 [id number] auto[employer] erce [address] [place] [address] 10/25/2012 00:00:00 [id number] auto[employer]Comm erce [address] [facility] [place], [place] [address] 01/10/2013 00:00:00 [id number] auto[employer]Comm erce [address] [facility] [place], [place] [address] 01/24/2013 00:00:00 [id number] autoEComm erce [address] [facility] [place], [place] [address] 2013 00:00:00 [id number] auto[employer]Comm erce [address] [facility] [place], [place] [address] 06/20/2013 00:00:00 [id number] ALEX Le Main Office [address] [facility] [address] [place], [place] [address] 10/14/2013 14:06:23 10/14/2013 14:56:05 Infestation by Sarcoptes scabiei elle hominis [id number] call if does not improve after second treatment in a week [id number] Idalmis nicolas MD Main Office [address] [facility] [address] [place], [place] [id number] 10/16/2013 13:38:05 10/16/2013 14:08:14 Asthma [id number] well cotnrolled continue meds Bipolar I disorder [id number] on meds and in counsleing Disorder of coccyx 42705869 healing, hx of a fall Infestatio n by Sarcoptes scabiei elle hominis [id number] did tx and laundry, pt is crying over having scabies, reasoned with her aobut a self limited event, she calmed down by the time she left and has her therapist for supprt [id number] Idalmis nicolas MD Main Office [address] [facility] [address] [place] [address] 10/22/2013 10:56:55 10/22/2013 11:43:54 Eruption [id number] severe allergic reaction to elimite, pt to finish medrol dose pack, use benadryl at night adn try motrin for the pain Bipolar I disorder [id number] on meds and in counsleing , pt is seeing ehr therapist today,she is coping better than the other night when she went to the ER nad spoke tot he pantry 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 Infestatio n by Sarcoptes scabiei elle hominis [id number] pt treated herself with elimite 2 tiems a week apart, she has a reaction to the elimite. she is on the last 2 days of the medrol dose pack and doing well, in the past she had had joe with prednisone but doing better this time. [id number] Idalmis nicolas MD Main Office [address] [facility] [address] [place] [address] 12/03/2013 08:44:24 12/03/2013 09:35:46 Bipolar I disorder 468626312 pt is feeling very depressed, states she [...] not want to complicate anything today Eruption 433292085 very faint, pt is very nervous about [...] days to help if possible drug related. [id number] ALEX Maya Main Office [address] [facility] [address] [place] [address] 12/10/2013 16:23:48 12/10/2013 16:55:47 Needs influenza immunization 080984122 Bipolar I disorder 113972369 Patient hadher meds changed on Sunday by her prescriber and has seen her therapist since last visit 12/03. She does not feel SI/HI, mood is better. Eruption [id number] Saw bull on Sunday who prescribed cream for her rash, it is improving and pt feels better. [id number] Idalmis nicolas MD Main Office [address] [address] 06/10/2014 15:24:10 06/10/2014 16:08:41 Bipolar I disorder 156809788 on meds and feels they are helping. is working with therapist on maybe volunteeri ng. Asthma 874139041 a bit of a flare, was put on steroids last month, continue meds. [id number] Idalmis nicolas MD Main Office [address] [address] 10/16/2014 10:41:58 10/16/2014 11:34:30 Bipolar I disorder 841434955 on meds and feels they are helping. is working with therapist on maybe volunteeri ng. Anxiety 39371752 Asthma 505841381 asthma is controlled . Backache 105490326 Needs infl uenza immunization 978363948 Eruption 052027674 looks l brigid sun reaction, use otc hydrocorti sone and lotion [id number] Idalmis nicolas MD Main Office [address] [address] 02/15/2015 10:56:10 02/15/2015 11:53:33 Adult health examination 039492033 Z00.00 pap next year, will add more exercise. Bipolar I disorder 06182 6008 F31.9 on meds and feels they are helping. is working with therapist and is volunteeri ng. Administra tion of pneumococcal vaccine 49075945 Z23 Asthma 870266918 J45.90 9 asthma is controlled . will get pneumovax today, never had [id number] Josee Casillas MD Main Office [address] [address] 07/09/2015 09:56:30 07/09/2015 10:35:29 Pain in throat 385412576 R07.0 rapid strep is negative. Viral infection. Advised NSAIDs or tylenol, fluids and rest. [id number] Idalmis nicolas MD Main Office [address] [place] [address] 08/16/2015 14:51:18 08/16/2015 15:18:13 Asthma 666993674 J45.909 asthma is controlled Bipolar I disorder 83893 6008 F31.9 just finished partial hospitaliz ation, continue meds nad therapy Sciatica 57026881 M54.31 into right calf, positive straight leg raise, pt to see PT Low back pain 496953197 M54.5 PT referral, flexeril for night if spasms [id number] Idalmis nicolas MD Main Office [address] [address] [place] [address] 09/09/2015 09:14:35 09/09/2015 10:18:31 Impacted cerumen 63039471 H61.23 soaked and lavaged without problems Pain in lower limb 25974 006 M79.604 spasm, pt to try soma and exercise and stretch [id number] Estrellita Pitt PA-C Main Office [address] [address] [place] [address] 09/24/2015 13:53:33 09/24/2015 15:00:06 Infection of toe 766341324 L08.9 Start Abx as directed. Dressing changes daily , apply topical Abx as well. Laceration of toe 038384 004 S91.119A Remove sutures as scheduled next week. [id number] Estrellita Pitt PA-C Main Office [address] [address] [place] [address] 09/29/2015 08:38:23 09/29/2015 09:42:03 Infection of toe 764860257 L08.9 Switch from Keflex to Bactrim DS BID for 10 days. Wound culture taken. Recheck in 3-4 days and remove sutures. [id number] Estrellita Pitt PA-C Main Office [address] [address] [place] [address] 10/01/2015 08:45:49 10/01/2015 09:23:21 Laceration of toe 040348083 S91.119A 3 sutures removed w/o significan t discomfort . Pt. is advised to keep wound covered until full closure and scab comes off. Infection of toe 6676489 06 L08.9 Continue Bactrim DS as directed. Check on wound culture results. F/u prn. [id number] Idalmis nicolas MD Main Office [address] [place] [address] 10/21/2015 12:42:29 10/21/2015 13:28:14 Slurred speech 552708337 R47.81 I viewed her video on her phone, unclear, she denies any substances , will get US and Ct to rule out any CVA/bleed but very unlikely, if it recures pt was told to go to ER, Headache 29644694 R51 mild, only a day or 2, not there with slurred speecha dn very mild [id number] Idalmis nicolas MD Main Office [address] [address] 11/25/2015 10:41:59 11/25/2015 11:44:21 Slurred speech 101974979 R47.[address] of head and carotid US Influenza vaccine needed 7630995189 106 Z23 Asthma 445073400 J45.90 9 asthma is controlled .she was followed by Eddie Haywood but she just retired, was on Brevo inhaler but stopped it. Is on singulair and proair prn. Bipolar I disorder 51593 6008 F31.9 is on meds, thinks she gained weight due to stress eating. continue meds [id number] Estrellita Pitt PA-C Main Office [address] [address] 12/10/2015 13:49:46 12/10/2015 14:57:55 Candidiasis of mouth 38626554 B37.0 [id number] Idalmis nicolas MD Main Office [address] [address] 03/29/2016 15:00:02 03/29/2016 15:46:19 Asthma 277281359 J45.909 asthma is controlled . continue meds Bipolar I disorder 41010 6008 F31.9 is on meds, mood is stable, volunteeri ng which is good for her, just out of partial hospitaliz ation [id number] Idalmis nicolas MD Main Office [address] [place] [address] 07/06/2016 14:52:06 07/06/2016 15:43:01 Vitamin D deficiency 97768192 E55.9 take weekly med Bipolar I disorder 08327 6008 F31.9 is on meds, mood is stable, volunteeri ng which is good for her, just out of partial hospitaliz ation [id number] Idalmis nicolas MD Main Office [address] [address] [place] [address] 07/24/2016 14:52:50 07/24/2016 15:34:41 Adult health examination 048056219 Z00.00 is exercising a lot and feels well, disappoint ed no weight loss but feels better. Change in skin lesion 39 7523113 L98.9 left arm, we will make appt with DR Tobin Asthma 795777522 J45.90 9 asthma is controlled . continue meds Bipolar I disorder 62848 6008 F31.9 is on meds, mood is stable, volunteeri ng which is good for her, in therapy and doing a voluntary day program [id number] Idalmis nicolas MD Main Office [address] [address] [place] [address] 10/30/2016 09:38:36 10/30/2016 10:12:18 Needs influenza immunization 442754872 Z23 Hypothyroidism 39657149 E03.9 pt is on meds and takes them regularly, due for recheck of level Asthma 016920913 J45.90 9 asthma is controlled . continue meds Bipolar I disorder 91752 6008 F31.9 is taking meds regularly, med provider will be changing and pt is due for a level and she will call and get an order for a level and who her next med provider will be [id number] Idalmis nicolas MD Main Office [address] [address] [place] [address] 11/23/2016 12:49:42 11/23/2016 13:32:00 Dysfunctional uterine bleeding 03711729 N93.8 see hx, due for pap but will refer to [employer] due to DUB, may need treatment with provera, pt with depression should tell [employer] provider this, Backache 396042065 M54.9 use motrin as needed Asthma 186855823 J45.90 9 asthma is controlled . Bipolar I disorder 99733 6008 F31.9 doing better, is on meds, in counseling , gets a lot fo katey with ruby bela at a [employer] [facility] and a homeless care home [id number] Idalmis nicolas MD Main Office [address] [place] [address] 03/26/2017 14:50:54 03/26/2017 15:39:28 Dysfunctional uterine bleeding 59703200 N93.8 neg w/u by [employer] including USand biopsy, will ask for note, no further workup Asthma 802694494 J45.90 9 asthma is controlled . Bipolar I disorder 21610 6008 F31.9 doing very well [id number] Idalmis nicolas MD Main Office [address] [place] [address] 05/16/2017 10:22:08 05/16/2017 11:05:23 Hypothyroidism 19904803 E03.9 off meds for 2 weeks, restart and check level in 2 months Hyperhidrosis 734116342 R61 wrote down instructio ns for pt to take 3 days in a row, then change to 2 times a week and use regular deodorant too Asthma 738932075 J45.90 9 asthma is controlled . Bipolar I disorder 17444 6008 F31.9 doing very well [id number] ALEX Maya Main Office [address] [place] [address] 06/01/2017 15:02:22 06/01/2017 15:37:39 Hypothyroidism 95740648 E03.9 Last TSH 6.65, will increase levothyrox ine to 37.5mcg daily. new rx providd. she has lab orders and will have them checked in 4-6 weeks. Contusion of forearm 398 67467 S50.11XA small contusion, improving. Bipolar I disorder 58735 6008 F31.9 Recent partial hospitaliz ation x 2 weeks, discharged today, is feeling better and looking forward to her [place]iar[place] vacation starting on sunday. [id number] ALEX Maya Main Office [address] [place] [address] 07/27/2017 13:51:39 07/27/2017 14:17:38 Horse bite wound 309095230 W55.11XA Healing well, currently on clinda based on culture results. she is taking a probiotic, eating yogurt, instructed to eat 20 mins prior to abx. Call or return for any concerns or worsening. Open wound of abdominal wall 611110286 S31.100A [id number] Josee Casillas MD Main Office [address] [place] [address] 12/04/2017 11:06:41 12/04/2017 11:40:34 Needs influenza immunization 124776262 Z23 [id number] Izaiah Prajapati MD Main Office [address] [address] 12/14/2017 15:10:05 12/14/2017 16:03:05 Seborrheic dermatitis of scalp 872795524 L21.0 Seborrheic dermatitis 50 988091 L21.9 Will cover initially for both fungal and bacterial etiologies with low potency steroid for inflammati on. Less likely psoriasis but if persistent /worse will need derm referral. Impetigo 93781375 L01.00 [id number] Idalmis nicolas MD Main Office [address] [address] 04/03/2018 13:53:17 04/03/2018 14:54:27 Asthma 778661149 J45.909 Refilled pro air to use prn Acute otitis media 48064 03 H66.92 Advise to use otc pain [...] any dizziness or chest discomfort . Eruption 128418338 R21 Does not appear to be shingles, infection or coxsackie virus at this time. Will use desonide bid (has this at home). Call if rash not improving. Likely contact dermatitis vs eczema. 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 Medication monitoring 39 7688955 Z51.81 needs EKG due to meds for bipolar Impacted c erumen of bilateral ears 5765194827 188959 H61.23 soak and lavage today . canals clear upon discharge Asthma 895769768 J45.90 9 asthma is controlled . 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 Encouraged less carbs and increased exercise. Labs are normal, will check fasting BS with next labs Hypothyroidism 14408892 E03.9 TSh trending up , now close to 10. Will gradually increase med alternatin g 1 with 1.5 of levothyrox ine daily. Check TSH 6 weeks Bipolar I disorder 20329 6008 F31.9 pt doing better continue meds listed and will call therapist if not doing well. Follows with current mental health providers. [id number] Izaiah Prajapati MD Main Office [address] [facility] [address] [facility] [place] [place] [address] 12/20/2018 14:53:53 12/20/2018 15:58:11 Lumbar radiculopathy 782110702 M54.16 start medrol today and PT alan next week, TC#3 sparingly for pain, supplement with otc meds. Pt aware no refills on pain med. Rest but change position and walk frequently . Stretching at home. Call or ED if acutely worse or any bowel/blad shona sx. Followup in a few weeks. [id number] Izaiah Prajapati MD Main Office [address] [address] 01/10/2019 13:55:04 01/10/2019 14:39:13 Low back pain 755274747 M54.5 Continue PT for another 4-6 weeks, continue home exercises Acute back pain with sciatica 177883776 M54.42 use mobic for a week then prn if still having pain. If not better in 4-6 weeks, consider imaging. [id number] Idalmis nicolas MD Main Office [address] [place] [address] 01/24/2019 10:34:24 01/24/2019 10:53:58 [id number] Idalmis nicolas MD Main Office [address] [place] [address] 08/04/2019 13:56:48 08/04/2019 15:29:46 Impacted cerumen 48417529 H61.23 removed today, right canal still red, distally has some ? soft wax 7-8 oclock, ? cholesteat [place] will recheck in 2 weeks, no water in right ear. Call if any pain or changes in ear or hearing. [id number] Idalmis nicolas MD Main Office [address] [facility] [address] [place] [address] 08/18/2019 13:46:56 08/18/2019 14:21:42 Serous otitis media 60503877 H65.91 steam, flonase, keep hydrated, ENT if not better. Cannot take oral steroids, makes her manic. [id number] Idalmis nicolas MD Main Office [address] [address] [place] [address] 09/12/2019 13:16:23 09/12/2019 14:24:04 Adult health examination 821050463 Z00.00 doing pretty well, keeping active, misses working with the horses but sees them, more positive than in the past Screening for malignant neoplasm of breast 154249113 Z12.39 pt to set up first mammogram Bipolar I disorder 97293 6008 F31.9 doing very well, will get orer from psychiatry for a lithium level Hypothyroidism 50663506 E03.9 get thyroid test Eczema 53100948 L30.9 eyebrows, ears tx as below Psoriasis of scalp 41356 8008 L40.9 Screening for malignant neoplasm of cervix 770414586 Z12.4 pt to make appt [id number] Idalmis nicolas MD [facility] [address] [place] [address] [place] [address] 10/02/2019 06:24:57 10/06/2019 09:11:51 Hypothyroidism 82747103 E03.9 elevated TSH ordered by psych, will increase dose and recheck in 6 weeks. Bipolar I disorder 35935 6008 F31.9 doing well, labs by psychiatry , will talk with pharmacist how to take the thyroid and lithium levels so they do not interfere with each other Mild inter mittent asthma 780566880 J45.20 stable continue meds [id number] Idalmis nicolas MD [facility] [address] [address] [place] [address] 10/16/2019 08:37:38 10/16/2019 11:49:29 Hypothyroidism 59824158 E03.9 thyroid dose was increased recently but now pt does not feel well. plan is to have pt recheck thyroid level today, she is taking it midday a few hours after lithium,sh fish had asked the pharmacist for suggestion , so this is different than how she took it in the past Bipolar I disorder 28566 6008 F31.9 feels very emotional Not grounded . is working with therapist, no suicidal plans but has some thoughts, feels safe and promises she can keep herself safe, work with counselor [id number] Idalmis [facility] MD [facility] [address] [facility] [address] [place] [place] [address] 11/28/2019 12:54:48 12/02/2019 10:41:25 Seborrheic dermatitis of scalp 637067309 L21.0 Use Tgel hampoo a few time a week and then put lotion on affected areas bid for a week, then use prn only, call if not helping and would do dermatolog y referral [id number] Idalmis nicolas MD Main Office [address] [facility] [address] [place] [address] 03/18/2020 15:02:30 03/18/2020 16:15:08 Eczema 54024606 L30.9 on MTX, improving, pt knows to take extra precaution s against Covid infectin Anxiety state 329026491 F41.1 on meds, sees counselor hard 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 which 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 Bipolar I disorder 14416 6008 F31.9 a bit of a struggle but doing ok, more resources, Mild inter mittent asthma 609642295 J45.20 stable continue meds Hypothyroidism 61306803 E03.9 continue meds [id number] Idalmis nicolas MD Main Office [address] [facility] [address] [place] [address] 07/14/2020 13:22:37 07/14/2020 13:57:55 Eczema 60677950 L30.9 on MTX, improving, pt knows to take extra precaution s against Covid infection Mild inter mittent asthma 306296842 J45.20 stable continue meds Hypothyroidism 87123545 E03.9 continue meds Macromastia 818428413 N6 2 pain in shoulders and upper back and rashes under breasts considerin g breast reduction, will refer to plastic surgeon Screening for malignant neoplasm of breast 897997957 Z12.39 pt to set up first mammogram Bipolar I disorder 64425 6008 F31.9 a bit of a struggle but doing ok, more resources, [id number] Reyes Fine MD Main Office [address] [facility] [address] [place] [address] 08/27/2020 10:24:55 08/27/2020 12:15:05 Impacted cerumen 69082038 H61.23 Cerumen removed in Right.Left sided aborted after removal of some wax in the exterior ear as it looked like patient caused trauma to her ear drum from q-tip use. Mild inter mittent asthma 047396417 J45.20 Notes under controll with inhalers, needed refills. Acute otitis media 05485 03 H66.92 After wax removal patient notes improvemen t in hearing denies vomiting, dizziness, or facial weakness, fever. Will provide ear drops advised injured ear drums can heal on its own thus will f/u in 2 weeks to reassess. Will refer to ent. Perforatio n of tympanic membrane 04635501 H72.92 [id number] Idalmis nicolas MD Main Office [address] [address] 12/22/2020 10:51:31 12/22/2020 11:39:16 Adult health examination 486161455 Z00.00 doing pretty well, keeping active, in counseling weekly and meds by psychiatry , anxiety due to upcoming skin lesion resection. 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 Hypothyroidism 32541811 E03.9 continue meds check labs Mild inter mittent asthma 897324094 J45.20 stable continue meds Needs infl uenza immunization 181572156 Z23 Lesion of skin of face 8342352680 [address] Tobin with malignancy getting removed 01/03 nervous [id number] Idalmis nicolas MD Main Office [address] [facility] [address] [place] [address] 12/01/2021 09:39:44 12/01/2021 10:21:17 Hypothyroidism 03220685 E03.9 check level and continue med Needs infl uenza immunization 879584182 Z23 Bipolar I disorder 95476 6008 F31.9 a bit of a struggle but doing ok, in counseling and sees psychiatry and 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 Mild inter mittent asthma 682045523 J45.20 stable continue meds Psoriasis 7574774 L40.9 on humira and will see dermatolog y today pt knows she is immune suppressed due to med and should keep up with covid boosters Urgent ollie sanjuana to urinate 56402639 R39.15 sometimes has incontinen ce, pt to set up appt [id number] Idalmis nicolas MD Main Office [address] [address] [place] [address] 01/20/2022 13:20:16 01/20/2022 14:26:12 Anxiety state 359138867 F41.1 Pt is having full anxiety, panic and depression with suicidal thoughts but no intentions . She had the visit with Dr Ny and contracts for safety, has crisis numbers, family and therapist support. Does not feel the need for ED evaluation . Dr Ny and patient comforatab le with the plan. Reschedule AWV later. [id number] Idalmis nicolas MD Main Office [address] [facility] [address] [facility] [place] [address] 04/05/2022 14:54:10 04/05/2022 15:57:29 Adult health examination 995824994 Z00.00 Pt is in good general health with mental health stable and improved. 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 Social and family history reviewed. Immunizati ons reviewed, advised annual flu shot which she had. She is not up to date on dental and eye providers, will make appt. mammogram utd, [employer] utd Reviewed diet and exercise. Hypothyroidism 98418102 E03.9 recent tsh normal Mild inter mittent asthma 786717129 J45.20 renew med, uses prn Bipolar I disorder 91810 6008 F31.9 pt doing better continue meds listed and will call therapist if not doing well. Follows with current mental health providers. 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 0 pt gets meds for bipolar from Dr Porfirio Hearn in [facility] heartrate 107, EKG with NSR, normal QT interval. Hypothyroidism 59463922 E03.9 continue med [id number] JARVIS NGUYEN MD Main Office [address] [facility] [address] [place] [address] 06/16/2022 12:51:46 06/16/2022 13:43:42 Laceration of finger 886999337 S61.210A - pt had 8 sutures placed on right second digit after laceration with veggie cutter- 2 sutures were removed today as it was noted as the sutures were removed patient skin had not completely healed, will remove rest 12-14 day usman- RTC in 2 days Transition of care from emergency department to self-care [id number] 32961 Z76.89 - presented to urgent care on 06/06 after laceration of right second and third digits [id number] JARVIS NGUYEN MD Main Office [address] [facility] [address] [place] [address] 06/19/2022 09:20:48 06/19/2022 10:05:55 Laceration of finger 560434981 S61.210D - pt had 8 sutures placed on right second digit after laceration with veggie cutter- 2 sutures were removed on 06/16- other 6 suture were removed today on 06/19- pt does have one small area were the laceration is still prominent therefore wound precaution s were given- RTC if patient note warm, tenderness , redness or discharge [id number] Idalmis Ny-Frances nicolas MD Main Office [address] [facility] [address] [facility] [place], [place] [address] 06/30/2022 15:53:21 06/30/2022 16:22:25 Injury of finger 55359819 S69.91XD see hpi and PE. 3rd finger cauterized in UC still with balck hard cover and 2nd healing after sutures. will refer to plastic surgery to address the 3rd finger, asked for appt early next week. 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- medication s filled by [facility] Bipolar I disorder 83408 6008 F31.9 - follows with psychiatry every 3 months, as a new provider started seeing one year ago- currently on quetiapine 800mg QD and lithium 600mg BID- [facility] Mild inter mittent asthma [id number] J45.20 - pt takes albuterol pump has needed (will go months without using it)- take singular 10mg daily Injury of finger 3582522 8 S69.91XD - second digit all sutures removed, wound still has dried blood, healing very slow- third finger still black with very little improvemen t since 06/06- pt was referred to plastics> [facility] cannot see patient until after December, called to push date forward, request refused> currently looking for other plastic surgeons in the area- ED precaution s given- RTC in one month for continued follow-up Psoriasis 1501453 L40.9 - currently on humira injections which provides relief [id number] JARVIS NGUYEN MD Main Office [address] [place] [address] 07/14/2022 13:23:31 07/14/2022 14:05:46 Injury of finger 54264938 S69.91XD - improving- second digit all sutures removed, wound still has dried blood, healing very slow- third finger cautrized wound is healing, scabbing is regressing - pt was referred to plastics> [facility] cannot see patient until after December, called [...] for healing.- wound care referral also provided [id number] JARVIS NGUYEN MD Main Office [address] [place], [place] [address] 08/17/2022 11:20:11 08/17/2022 12:07:00 Injury of finger 43840660 S69.91XD - improving- second digit: at today visit noted that piece of skin that was originally sutured is no longer in place. The skin was removed. Well-heale d tissue noted underneath .- third finger which was cauterized is now healed- pt was referred to plastics> [facility] cannot see patient until after December, called [...] referral pt has an appoitment in september- [facility] in 1-2 months to ensure second digit has fully healed [id number] Josee Casillas MD Main Office [address] [address] [place] [address] 08/29/2022 12:52:30 08/29/2022 13:46:55 Impacted cerumen of bilateral ears [id number] 694975 H61.23 Acute righ t otitis media 649214155 H66.91 [id number] JARVIS NGUYEN MD Main Office [address] [facility] [address] [place] [address] 09/28/2022 14:37:07 09/28/2022 15:09:58 Injury of finger 73499916 S69.91XD - now resolved, second and third digit have completely healed- pt was referred to plastics> [facility] cannot see patient until after December, called [...] 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 do not believe pain is coming from accident with madison slicer as patient was not having this pain at time of the accident or at any of the follow-up visits were her wound was treated- ordered Nocturnal wrist splinting in the neutral position- universal wrist brace bilateral- Medication s- ibuprofen and tylenol as needed- Electrodia gnostic studies hold off for now- pt advised to practice mindfullne ss to help with the pain Anxiety 45686703 F41.9 [id number] JARVIS NGUYEN MD Main Office [address] [facility] [address] [place] [address] 04/12/2023 12:51:49 04/12/2023 13:39:38 Adult health examination 490354603 Z00.00 Health Maintenanc e FemaleA) Patient was [...] cellsNext: DUE (pt advised to follow with [employer]) Last Colonoscop y: start at age 45-75Date: Result: Next: not yet of age Last DEXA scan:Date: due at 64Result: ??? C) Vaccines:I nfluenza: not this yearTdAP: 06/06/2022Z felix: due at 95BEI59: due at 05JELY46: 02/15/2015 PCV20:PCV1 5:COVID: , 05/17/2020, 01/11/2021 , 12/07/2021 D) Routine blood work orderedE) Updated patient's history RTC in one year for annual exam or sooner if any acute complaints Fatigue 29573433 R53.83 Z00.00 Hyperlipidemia 88159181 E78.5 Z00.00 Hepatitis C screening 41 3726195 Z11.59 HIV screening 384592444 Z11.4 Anxiety state 534635487 F41.1 - NIA-7 score of 21- currently [...] filled by tino almonte Bipolar I disorder 19811 9062 F31.9 - PHQ-9 score score of 25 [...] s given- RTC in 4 weeks Hypothyroidism 30122383 E03.9 - will check levels- c/w levothyrox ine 100mcg QD Mild inter mittent asthma 350950867 J45.20 - pt takes albuterol pump has needed (will go months without using it)- take singular 10mg daily Vitamin D deficiency 347 92036 E55.9 Irritable bowel syndrome with diarrhea 071472985 K58.0 - pt is currently taking dicyclomin e 10mg QID as needed Psoriasis 1523274 L40.9 - currently on humira injections which provides relief Tachycardia 1466263 R00. 0 - HR today was 120- EKG has a lot of artifact but sinus tachycardi a with HR of 109- pt was started on metoprolol succinate ER 25mg- most likely due to elevated anxiety Screening for malignant neoplasm of cervix 887935564 Z12.4 Body mass index 30+ - obesity 130012350 E66.9 Z68.31 - BMI of 31.5- Cut [...] minutes cumulative of moderate exercise recommende dJaycob [id number] JARVIS NGUYEN MD Main Office [address] [facility] [address] [place] [address] 04/26/2023 14:37:13 04/26/2023 15:09:02 Hepatitis C antibody detected 647875228 Z86.19 - ordered hepatic function panel- ordered confirmato ry testing testing by checking viral load and genotype- if positive will send to GI Acute kidney injury 1466 9001 N17.9 - pt advised to remain hydrated- continue to avoid NSAIDs- repeat blood work ordered [id number] JARVIS NGUYEN MD Main Office [address] [facility] [address] [place] [address] 05/17/2023 13:49:04 05/17/2023 14:29:35 Anxiety state 942696996 F41.1 - NIA-7 score of 17- currently on lorazepam 1mg BID given by psychiatri which she follows every 3 months> pt advised not to take the medication with clonazepam 0.5mg- counselclemencia garcia provided, 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 0 - HR today was 109- EKG done on 04/12 has a lot of artifact but sinus tachycardi a with HR of 109- c/w metoprolol succinate ER 25mg- ordered US echo- pt referred to cardiology for holter monitor- tino almonte will also be adjusting meds to help improve HR [id number] JARVIS NGUYEN MD Main Office [address] [facility] [place] [address] 08/13/2023 14:37:29 08/13/2023 15:13:08 Tachycardia 2385717 R00.0 - now resolved- HR today was [...] will request note Vitamin D deficiency 347 11130 E55.9 - pt noted to have elevated level on 04/17/2023 -> 68- pt was advised to start back on 1000 IU to prevent levels from going too low> pt was advised this when informed of blood however she did not read message properly Psoriasis 9163937 L40.9 - currently on cyltezo injections which provides relief- pt does have an area at the back of left ear were the psoriasis is worse, pt provided with clobetasol cream and advised to moisturise [id number] JARVIS NGUYEN MD Main Office [address] [facility] [place] [address] 12/21/2023 15:15:32 12/21/2023 16:02:18 Acute kidney injury 22361051 N17.9 - pt advised to remain hydrated- continue to avoid NSAIDs- repeat blood work ordered Anxiety state 116710443 F41.1 - NIA-7 score of 8- lorazepam as been stopped and switched to clonazepam - amos garcia provided, 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- medication s filled by psychiatri Bipolar I disorder 73490 6002 F31.9 - improved- PHQ-9 score score of 6 with elevated NIA-7 score 8- pt has completed day-progra m at [place]> clonazepam 0.5mg as added to regimen- pt will be following with psychiatry over the next few month to optimize her meds as it could be the cause of the tachycardi a- currently on quetiapine 800mg QD and lithium 600mg BID- medication s filled by psychiatri Hypothyroidism 92430022 E03.9 - will check levels- c/w levothyrox ine 100mcg QD Mild inter mittent asthma 329646666 J45.20 - pt takes albuterol pump has needed (will go months without using it)- take singular 10mg daily Tachycardia 3369878 R00. 0 - now resolved- HR today [...] will request note Needs infl uenza immunization 737257619 Z23 19 YEARS AND OLDER ONLY Tremor 94058426 R25.1 - ordered vitamin b12 and folate- ordered MRI of the brain for further evaluation - pt psychiatri started patient on propanolol ER 60mg Urinary incontinence 165 976532 R32 - pt has been following with urology, advised to given them a call for follow-up Numbness of hand 6448376 04 R20.0 - occurred after incident veggie slicer- located on right hand on second and third digit- pt having neuropathi c pain and temperatur e sensitivit ies- referred to hand surgery for second option however feel that pain is from severed never endings and may permanent [id number] JARVIS NGUYEN MD Main Office [address] [facility] [address] [place] [address] 01/01/2024 09:20:34 01/01/2024 09:55:35 Transition of care from emergency department to self-care [id number] 77202 Z76.89 - presented to urgent care on 12/23 for cellulitis of lower extremity- reviewed notes Cellulitis 021703320 L03 .90 - well healing- no need for repeat antibiotic treatment at this time- wound culture grew Beta hemolytic Streptococ cus, group B which is susceptibl e to keflex- pt advised to keep area clean and dry- return precaution s were discussed [id number] JARVIS NGUYEN MD Main Office [address] [facility] [address] [place] [address] 03/24/2024 14:33:30 03/24/2024 15:06:31 Acute kidney injury 76684192 N17.9 - creatine 1.1 and GFR of 58- pt advised to remain hydrated- continue to avoid NSAIDs- repeat blood work ordered Hypothyroidism 80009185 E03.9 - normal levels- will check levels- c/w levothyrox ine 100mcg QD Tachycardia 8203193 R00. 0 - now resolved- HR today [...] control with metoprolol at the time Tremor 48496985 R25.1 - normal vitamin b12- MRI of [...] with her psychiatri st Urinary incontinence 165 748629 R32 - pt has been following with urology, advised to given them a call for follow-up Numbness of hand 0051407 04 R20.0 - occurred after incident veggie slicer- located on right hand on second and third digit- pt having neuropathi c pain and temperatur e sensitivit ies- pt is currently following with hand surgery [id number] Josee Casillas MD Main Office [address] [facility] [address] [place] [place] [address] 04/15/2024 13:36:44 04/15/2024 14:47:23 Impacted cerumen of bilateral ears 8906553008 480384 H61.23 Bilateral cerumen impaction , recurrent. Recommend to avoid using q-tip. Ears were irrigated with large amount of cerumen removed , but still with residual amount left behind. Recom. to use Debrox for 3-5 days. Recom ear irrigation every 6-8 m. [id number] JARVIS NGUYEN MD Main Office [address] [facility] [address] [place] [address] 06/30/2024 13:04:23 06/30/2024 14:03:35 Acute kidney injury 87594083 N17.9 - creatine 1.1 and GFR of 58- pt advised to remain hydrated- continue to avoid NSAIDs- repeat blood work ordered Hypothyroidism 57219180 E03.9 - normal levels- c/w levothyrox ine 100mcg QD Tachycardia 6890202 R00. 0 - elevated- HR today was [...] control with metoprolol at the time Tremor 43850642 R25.1 - normal vitamin b12- MRI of the brain of brain is normal- pt psychiatri st started patient on propanolol , pt unsure if she is actually taking this Urinary incontinence 165 696089 R32 - pt has been following with urology, advised to given them a call for follow-up Numbness of hand 6086550 04 R20.0 - occurred after incident veggie slicer- located on right hand on second and third digit- pt having neuropathi c pain and temperatur e sensitivit ies- pt is currently following with hand surgery> will be starting physical therapy to help with sensation Bipolar I disorder 29781 600 F31.9 - worsening- PHQ-9 score score of 16 with elevated NIA-7 score 14- currently undergoing day-progra m at [place]- will be switching off quetiapine to lithium- medication s filled by psychiatri st- RTC in 3 weeks as patient should complete program by then and to check for improvemen t Irritable bowel syndrome with diarrhea 206117349 K58.0 - pt is currently taking dicyclomin e 10mg QID as needed Mild inter mittent asthma 744947657 J45.20 - pt takes albuterol pump has needed (will go months without using it)- take singular 10mg daily Hyperlipidemia 74869088 E78.5 Z00.00 - ASCVD score of 0.6%- [...] and veggies. General ex amination of patient 651627163 Z00.00 [id number] Health Maintenanc e FemaleA) Patient was counseled on healthy diet, exercise and nutrition due to BMI of 30.5 B) ScreeningL ast Mammogram: start at age 50 stop at 74Date: 06/11/2024R esult: BIRADS-1Ne xt: 05/2025 Last Pap smear: start at age 21 to age 65Date: 12/27/2016 Results: HPV negative, no atypical cellsNext: DUE (pt advised to follow with [employer]) Last Colonoscop y: start at age 45-75Date: Result: Next: not yet of age Last DEXA scan:Date: due at 64Result: ??? C) Vaccines:I nfluenza: 12/21/2023 TdAP: 06/06/2022Z felix: due at 79GEU36: due at 79GCEX20: 02/15/2015 PCV20:PCV1 5:COVID: , 05/17/2020, 01/11/2021 , 12/07/2021 D) Routine blood work orderedE) Updated patient's history RTC in one year for annual exam or sooner if any acute complaints Screening for malignant neoplasm of cervix 257021250 Z12.4 Screening for malignant neoplasm of colon 234281467 Z12.11 Obesity ca used by energy imbalance 584270247 E66.811 E66.09 Z68.30 61226517 - BMI of 30.5- Cut down on [...] minutes cumulative of moderate exercise erin ferro [id number] JARVIS NGUYEN MD Main Office [address] [facility] [address] [place] [address] 07/22/2024 11:20:45 07/22/2024 11:48:16 Bipolar I disorder 263600123 F31.9 - stable and improved- PHQ-9 score score of 11 with elevated NIA-7 score 8- completed day program at [facility]- will be switching off quetiapine to lithium> pt currently unsure of her medication list- medication s filled by psychiatri - no longer having SI/HI [id number] Izaiah Prajapati MD Main Office [address] [facility] [address] [place] [address] 09/16/2024 08:55:29 09/16/2024 10:06:43 Chest discomfort 191611313 R07.89 628206 Anxiety state 863248363 F41.1 see above Sinus tachycardia 515245 01 R00.0 3924 44 year old female in symptomati c rapid sinus tachycardi a secondary to bipolar anxiety. Pt had medication treatment changes, also under hydrated and eats less resulted in 9 lb weight loss. PT is seeing her psych prescriber next week for f/u.Recomm end to take lorazepam for anxiety as prescribed by psych, have TSH and bmp done. EKG in office confirmed sinus tachycardi a with no other abnormal findings. Recom to increase food and fluid intake. Pt was reassured. Bipolar I disorder 41193 6008 F31.9 continue current treatment as per psych [id number] JARVIS NGUYEN MD Main Office [address] [address] [place] [address] 10/08/2024 10:58:56 10/08/2024 11:27:08 [id number] JARVIS NGUYEN MD Main Office [address] [place] [address] 10/16/2024 13:58:41 10/16/2024 14:45:04 Bipolar I disorder 098023667 F31.9 - stable and improved- PHQ-9 score score of 2 with elevated NIA-7 score 10- completed day program at [facility]- currently off quetiapine to lithium> pt currently unsure of her medication list- medication s filled by psychiatri - no longer having SI/HI Post-disch arge follow-up 618022255 Z09 927369 - reviewed discharge summary Generalized headache 162 150142 R51.9 287535 - not having headaches, ordered for diagnosis to cover testing- abnormalit ies noted in urine test from recent discharge- now that patient is off lithium re-ordered testing for further evaluation - to consider imaging after testing complete Wax in ear canal 2795833 02 H61.20 95557 - bilateral- underwent irrigation Pruritus of vagina 09379 003 N89.8 623526 - located in the peritoneum - ordered patient clotrimazo le-betamet hasone cream- she will follow with gynecology soon [id number] JARVIS NGUYEN MD Main Office [address] [facility] [address] [facility] [place], [place] [address] 11/21/2024 14:42:11 11/21/2024 15:06:25 Bipolar I disorder 594029007 F31.9 - stable and improved- completed day program at [facility]- currently off quetiapine to lithium> pt currently unsure of her medication list- medication s filled by psychiatri st- no longer having SI/HI Pruritus of vagina 03016 003 N89.8 151925 - located in the peritoneum - ordered patient clotrimazo le-betamet hasone cream- she will follow with gynecology soon Generalized headache 162 228603 R51.9 207959 - not having headaches, ordered for diagnosis to cover testing- abnormalit ies noted in urine test from recent discharge- now that patient is off lithium re-ordered testing for further evaluation - to consider imaging after testing complete Tachycardia 3414034 R00. 0 - elevated- HR today was 104- EKG done on 04/12 has a lot [...] under control with metoprolol at the time Hypothyroidism 02338757 E03.9 - normal levels- c/w levothyrox ine 100mcg QD Mild inter mittent asthma 332202907 J45.20 - pt takes albuterol pump has needed (will go months without using it)> does use for URI therefore refilled since patient is currently sick- take singular 10mg daily Irritable bowel syndrome with diarrhea 729118507 K58.0 - pt is currently taking dicyclomin e 10mg QID as needed Tinea corporis 52559127 B35.4 03803 - located on the left underarm Psoriasis 8601781 L40.9 - currently on cyltezo injections which provides relief- pt does have an area at the back of left ear were the psoriasis is worse, pt provided with clobetasol cream and advised to moisturise - provided with clobetasol to apply to areas were she has a rash- does follow with derm, next gladys 12/11/2024 Seborrheic dermatitis 50 678738 L21.9 14556 - located on the forehead- started patient on ketoconazo le shampoo Health Concerns Section Related Observation LastModified by Organization Detai ls LastModified Time None Recorded Concern Status LastModified by Organization Details LastModified Time None Recorded Advance Directives Directive N: Payers Insurance Date Sequence Insurance Name Policy Number Policy Scott Covered Member ID Scott Member ID Guarantor Name 11/21/2024 1 [place] [employer] Crystal Chapa [id number] Crystal Chapa 11/21/2024 2 MEDICAID-[place]: [facility] Crystal Chapa [id number] Crystal Chapa Notes Date Note Type Note Provider Name and Address Organization Details Recorded Time 5 text/html Anxiety/DepressionReported by PatientHPIFor quality, patient reportsmood worseandincreased anxietybut reportssymptoms improved. For associated symptoms, patient reportsanxietybut reportsdenies homicidal ideations,no significant weight gain,no significant weight loss,no visual/auditory hallucinations,no delusions,appetite good,energy good,no apathy, andmaintaining functionality. For severity, patient reportsdenies suicidal ideations,able to maintain relationships, anddoes not interfere with activities of daily living. For duration, patient reportsstablizing. For onset/timing, patient reportsstill present. For context, patient reportsno major life stressors.ROS as noted in the HPI Crystal Chapa is a 44 year old [...] week and also in a DBT group. JARVIS NGUYEN MD [address] [address], [place], [address], [facility] [place] 07/22/2024 11:50:24 5 text/html ROS as noted in the HPI 44 year old female with h/o bipolar d/o , anxiety, IBS, hypo thryoid c/o developing worsening of anxiety with shacking all over her body . Episode started after pt smoked marijuana 2 days ago at night and continued over night into the following morning. Pt then took lorazepam and fell asleep. Since then have been feeling fatigue, some shortness of breath , decreased appetite, chest pressure. Pt have been in partial psych admission in the last 6 m resulting in significant changes in her treatment plan. She reports I fell like I'm approaching crises every since. Pt has poor sleep and poor appetite . Lost 9 lbs since July gladys. Estrellita Pitt PA-C [address] [facility] [address], [place], [address], [facility] 09/16/2024 13:07:46 5 text/html Hospitalization Contact RecordReported by PatientHospitalization Contact RecordFor follow up, [facility],admit date: (please enter in format 'mm/dd/yyyy') (09/28/2024),date of discharge: (please enter in format 'mm/dd/yyyy') (10/07/2024), anddate of contact: (please enter in format 'mm/dd/yyyy') (10/08/2024)([facility]).Medicare covered inpatient stay? yes Medicare SARAHI with in 48 working hours? yes High Complexity code valid on or before:September Moderate Complexity code valid on or before: October HCP on file? no MOLST on file? no Discharge Summary available? yes 44 year old female who was admitted to [facility] [place] completed a 10 day program discharge to home with close monitor by outpatient behavior health MD. Sarahi call to patient reports happy to be home doing well. Denies chest pain, shortness of breath,nausea,vomiting or headaches. Denies issues with voiding or passing bowel. Appetite and fluid intake is well. Patient denies any negative thought or actions. Aware to reach out for assist and is in close contact with psychiatrist. Per pcp scheduled patient follow up for 10/16/2024 at 2:15 pm. JARVIS NGUYEN MD [address], [place], [address], [facility] 10/08/2024 11:27:05 5 text/html Hospitalization Contact RecordReported by PatientHospitalization Contact RecordFor follow up, [facility]sh[facility],admit date: (please enter in format 'mm/dd/yyyy') (09/28/2024),date of discharge: (please enter in format 'mm/dd/yyyy') (10/07/2024), anddate of contact: (please enter in format 'mm/dd/yyyy') (10/08/2024)([facility]).Medicare covered inpatient stay? yes Medicare SARAHI with in 48 working hours? yes High Complexity code valid on or before:September Moderate Complexity code valid on or before: October HCP on file? no MOLST on file? no Discharge Summary available? yes 44 year old female who was admitted to [facility] [place] completed a 10 day program discharge to home with close monitor by outpatient behavior health MD. Sarahi call to patient reports happy to be home doing well. Denies chest pain, shortness of breath,nausea,vomiting or headaches. Denies issues with voiding or passing bowel. Appetite and fluid intake is well. Patient denies any negative thought or actions. Aware to reach out for assist and is in close contact with psychiatrist. Per pcp scheduled patient follow up for 10/16/2024 at 2:15 pm.ROS as noted in the HPI Crystal Chapa is a 44 year old F who presents to the clinic for hospital follow-up. Patient feels much better. Has been completely titrated off of lithium and seroquel. Pt psychiatrist continues to do dosage changes. No longer having SI. Following with therapist once a week. Crystal has also completed day program. Mentions that over the last several months she has been itching around the perineum. Does have an appoitment with gynecology. JARVIS NGUYEN MD [address] [facility] [address], [place], [address], [facility] [place] 10/16/2024 14:40:09 5 text/html ROS as noted in the HPI Crystal Chapa is a 44 year old F who presents to the clinic for follow-up on her chronic conditions. Patient is an upper respiratory infection but symptoms improving. Has a dermatology appoitment in 12/11/2024. Bipolar: Has been completely titrated off of lithium and seroquel. Pt psychiatrist continues to do dosage changes. No longer having SI. Following with therapist once a week. Crystal has also completed day program. JARVIS NGUYEN MD [address] [address], [place], [phone], [facility] 11/21/2024 17:20:30 OBGyn Episode No OBEpisode recorded.
--- OUTSIDE RECORDS SUMMARY | 2025-01-07 10:15 | XMS_ITS | Clinical Summary ---
Author Organization [facility] [address] [facility] Address [address] [place] [address] Phone Care Team Providers Care Measurement Psychologist Name Role Phone Renuka Ramírez MD Primary Care Provider [phone] Allergies Active Allergy Reactions Criticality Noted Date [...] TIMES A DAY FOR DYSTONIC REACTION Active Surgical History Surgery Date Site/Laterality Comments TONSILLECTOMY Medical History Medical History Date Comments Asthma DX:Asthma Anxiety Bipolar 1 disorder ([facility] V24, [facility] V28) Irritable bowel syndrome Hypothyroid Psoriasis Family History Medical History Relation Name Comments Breast cancer Mother Relation Name Status Comments Mother Social History Tobacco Use Types Packs/Day Years Used Date Smoking Tobacco: Never Smokeless Tobacco: Never Alcohol Use Standard Drinks/Week Comments Never 0 (1 standard drink = 0.6 oz pur e alcohol) Interpersonal Safety Answer Date Record ed Physical Abuse Unrecognized value 09/05/2024 Verbal Abuse Unrecognized value 09/05/2024 Comments Unknown Sex and Gender Information [...] 1998 Cervical Cancer Screening: Pap Smear 2000 HPV Vaccines (1 - 3-dose SCDM series) 2006 Pneumococcal Vaccine: Pediatrics (0 to 5 Years) and At-Risk Patients (6 to 49 Years) (2 of 2 - PCV) 02/16/2016 02/15/2015 Depression Screening 02/20/2024 Cholesterol Screening (Lipid Panel) 07/02/2024 HIV Screening 07/02/2024 Hepatitis C Screening 07/02/2024 Medicare Annual Wellness Visit 07/02/2024 Social Influencers of Health Screening 07/02/2024 COVID-19 Vaccine ( - season) 2024 12/07/2021, 01/11/2021, 05/17/2020, Additional history exists Influenza Vaccine (#1) 2024 , 11/27/2022, 12/01/2021, Additional history exists Breast Cancer Screening 05/15/2026 05/15/2024 DTaP,Tdap,and Td Vaccines (5 - Td or Tdap) 06/06/2032 06/06/2022, 02/04/2016, 02/03/2014, Additional history exists Colorectal Cancer Screening: Colonoscopy 09/05/2034 09/05/2024 RSV Immunization Adult Patients (1 - 1-dose 75+ series) 2054 Meningococcal ACWY Vaccine Aged Out 08/24/2005 N [...] 09/05/2024 1:52 PM EDT Colon cancer screening from Last 3 Months or Most Recently Relevant to Health Maintenance Results * COLONOSCOPY Anesthesia - MAC; [facility] ENDOSCOPY (09/05/2024 1:52 PM EDT) Anatomical Region Laterality Modality Endoscopy 09/05/2024 1:39 PM EDT Impressions 09/05/2024 1:55 PM EDT - The examined portion of the ileum was normal. - The entire examined colon is normal on direct and retroflexion views. - No specimens collected. Recommendation: - Repeat colonoscopy in 10 years for screening purposes. Narrative 09/05/2024 1:55 PM EDT [facility] GI Patient Name: Crystal Roblero Procedure [...] malignant neoplasm of colon CPT copyright 2020 [employer]. All rights reserved. The codes documented in this report are preliminary and upon remote computer terminal operator review may be revised to meet current compliance requirements. Debbie Helm MD 09/05/2024 1:55:02 PM This report has been signed electronically.Debbie Helm MD Number of Addenda: 0 Note Initiated On: 09/05/2024 1:39 PM Scope In: Scope Out: Endoscopy Department at [facility] - [address] [place] [id number] Procedure Note Debbie Helm MD - 09/05/2024 [facility] GI Patient Name: Crystal Roblero Procedure [...] for malignantneoplasm of colon CPT copyright 2020 [employer]. All rights reserved. The codes documented in this report are preliminary and upon remote computer terminal operator reviewmay be revised to meet current compliance requirements. Debbie Helm MD 09/05/2024 1:55:02 PM This report has been signed electronically.Debbie Helm MD Number of Addenda: 0 Note Initiated On: 09/05/2024 1:39 PM Scope In: Scope Out: Endoscopy Department at [facility] - [address] [place] [id number] IMPRESSION: - The examined portion of the ileum was normal. - The entire examined colon is normal on direct and retroflexion views. - No specimens collected. Recommendation: - Repeat colonoscopy in 10 years for screening purposes. Debbie Helm MD GI~PROCEDURE ORDERABLES Final Result from Last 3 Months or Most Recently Relevant to Health Maintenance Insurance [place] - [place] Care Teams Measurement Psychologist Relationship Specialty Start Date End Date Renuka Ramírez MD [address] [phone] PCP - General Internal Medicine 07/02/24
--- OUTSIDE RECORDS SUMMARY | 2025-01-07 10:15 | XMS_ITS | Clinical Summary ---
Author Organization [facility] Address [address] [place] [address] Care Team Providers Care Relief Worker Name Role Phone Unavailable Primary Care Provider Unavailabl e Social History Tobacco Use Types Packs/Day Years Used Date Smoking Tobacco: Never Assessed Sex and Gender Information Value Date Recorded Sex Assigned at Not on file Gender Identity Not on file Sexual Orientation Not on file Plan of Treatment Not on file
--- OUTSIDE RECORDS SUMMARY | 2025-01-07 10:15 | XMS_ITS | Clinical Summary ---
Author Organization [facility] Address [address] [facility] [address] [place] [address] Phone Care Team Providers Care Oriental Rug Repairer Name Role Phone Renuka Ramírez MD Primary Care Provider Allergies Active Allergy Reactions Criticality Noted Date Comments Amoxicillin-Pot Clavulanate Diarrhea 06/20/19 C-diff Permethrin Rash Low 07/02/2024 Medications clotrimazole-betam [...] Office Visit [facility] [address] [place] [address] [place] [address] Izzy Bradshaw MD Routine gynecological examination (Primary [...] * Pap Test (10/23/2024 12:00 AM EDT) Report [address] [address] Switchbox Assembler: Deion Jaeger MD FINE SANDER Cytology Report FINAL DIAGNOSIS A. PAP SMEAR (THIN PREP) CE: SPECIMEN ADEQUACY: Satisfactory for evaluation; transformation zone absent/insufficien t. INTERPRETATION: NEGATIVE FOR INTRAEPITHELIAL LESION OR MALIGNANCY. This specimen was analyzed by the automated Shockwave MedicalPrep Imaging System ([employer].) and the selected gary were reviewed by a service coordinator. Electronically Signed Out By: THIAGO Evans(ASCP) The [...] by real-time polymerase chain reaction (PCR) at [facility], [address] [place] [address] using the FDA-approved Wheretoget Onclarity HPV Assay with extended genotyping. Uses of the assay in scenarios other than those approved by the FDA should be considered off-label use. The accuracy and precision of this test for all other off-label specimen sources has been verified in the Cytopathology Laboratory of the [facility] and has not been cleared or [...] : 1980 (Age: 44) Sex: F Institution: [facility] Location: GOBGYN Date of Collection: 10/23/2024 Date of Reported: 10/28/2024 08:03 Results to: Izzy Bradshaw MD [facility] Final Diagnosis A. PAP SMEAR (THIN PREP) CE: SPECIMEN ADEQUACY: Satisfactory for evaluation; transformation zone absent/insufficien t. INTERPRETATION: NEGATIVE FOR INTRAEPITHELIAL LESION OR MALIGNANCY. This specimen was analyzed by the automated ThinPrep Imaging System (iPositioning.) and the selected gary were reviewed by a service coordinator. [facility] Results\Inter pretation A. PAP SMEAR (THIN PREP) CE: High-risk HPV Panel w/ extended genotyping NEG HPV 16-NEG HPV 18-NEG HPV 45-NEG HPV 33/58-NEG HPV 31-NEG HPV 56/59/66-NEG HPV 51-NEG HPV 52-NEG HPV 35/39/68-NEG Performed by real-time polymerase chain reaction (PCR) at [facility], [address] [place] [address] using the FDA-approved Wheretoget Onclarity HPV Assay with extended genotyping. Uses of the assay in scenarios other than those approved by the FDA should be considered off-label use. The accuracy and precision of this test for all other off-label specimen sources has been verified in the Cytopathology Laboratory of the [facility] and has not been cleared or approved by the U.S. Food and Drug Administration. Clinical correlation is advised. The assay assesses the E6/E7 DNA target and utilizes human beta globin as an internal control. Cytology and HPV testing are screening assays and should not be used as the sole means of detecting cancer. False-positives and false-negatives can occur. [facility] Conversion Type (Conversion Source) 10/23/2024 10/24/2024 9:52 AM EDT us Izzy Bradshaw MD CYTOLOGY ORDERABLES Edited Res ult - Final [facility] [address] [place] [address] from Last 3 Months Insurance MEDICARE PART A & [place] [facility] [place] PART A & B HEALTH MEDICARE PART A & [place] [facility] Care Teams Oriental Rug Repairer Relationship Specialty Start Date End Date Renuka Ramírez MD [address] [id number] PCP - General Family Medicine 09/09/24 Additional Source Comments The information contained in this document represents components of the legal health record. It is not the complete legal health record.[facility]
[2025-01-08 11:23] LABS: Anti Nuclear Antibody Screen POSITIVE (NEGATIVE); Anti Nuclear Antibody Titer 1:640 titer
[2025-01-09 05:13] LABS: Iodine, Serum/Plasma 40 mcg/L (52-109)
[2025-01-14 16:23] LABS: Carnitine Esters 7 umol/L (4-13); Carnitine, Free 33 umol/L (19-48); Carnitine, Total 40 umol/L (25-58)
== END 2025-01-06 14:12 | disposition home or self-care (01) ==
LOC: HO.LAB 14:11
PROVIDERS: PCP Student in an Organized Health Care Education/Training Program; Visit Provider Psychiatry & Neurology Psychiatry
DX: Z01.84 Encounter for antibody response examination (principal); R94.31 Abnormal electrocardiogram [ECG] [EKG]; F31.81 Bipolar II disorder; F41.3 Other mixed anxiety disorders; Z20.2 Contact with and (suspected) exposure to infections with a predominantly sexual mode of transmission; Z13.1 Encounter for screening for diabetes mellitus; Z13.6 Encounter for screening for cardiovascular disorders; Z13.21 Encounter for screening for nutritional disorder
CPT/HCPCS: 36415; 80053; 80178; 81001; 82306; 82379; 82550; 82570; 82728; 82746; 83036; 83090; 83735; 83789; 83930; 83935; 83970; 84100; 84425; 84439; 84443; 84480; 84481; 84630; 85025; 86038; 86039; 86140; 86431; 86780; 93005

== ENCOUNTER → 2025-01-06 14:17 | Outpatient (BNV) | payer MEDICARE, MEDICAID, SELFPAY | PROVIDERS: PCP Student in an Organized Health Care Education/Training Program; Visit Provider Internal Medicine | DX: R94.31 Abnormal electrocardiogram [ECG] [EKG] (principal); Z13.6 Encounter for screening for cardiovascular disorders | CPT/HCPCS: 93010 ==

== ENCOUNTER 2025-01-07 13:06 | Emergency (ER) | payer MEDICARE, MEDICAID, SELFPAY ==
[2025-01-07 13:11] VITALS: BMI 26.6
[2025-01-07 13:14] VITALS: BP 163/90; PULSE 103; RESP 18; TEMP 36.6; O2SAT 99
--- NOTE | 2025-01-07 14:10 | ED.PSYCH ---
HPI - Psych General Chief Complaint: Psychiatric Symptoms Stated Complaint: from [facility] Time Seen by Provider: 01/07/25 13:18 History of Present Illness ED Provider: CELIA Edwards HPI Narrative: 44-year-old female with medical history of eczema, IBS, psoriasis, hypothyroidism, bipolar 2 disorder, asthma presents to the ED from [facility] due to passive SI and concerns her medications are not working. Patient states she felt ?overwhelmed? today however she is unable to describe a particular trigger. Patient states she smokes marijuana however denies any other drugs and/or alcohol use. Denies chest pain, shortness of breath, abdominal pain, nausea, vomiting, headaches, visual changes, diarrhea, black/tarry stool, SI, HI, VH, AH Related Data Home Medications ?Medication ?Instructions ?Recorded ?Confirmed diazepam 5 mg tablet See Rx Instructions .Route 01/06/25 01/06/25 .COMPLEX PRN dystonic reaction Previous Rx's ?Medication ?Instructions ?Recorded levocarnitine 500 mg tablet 500 mg PO DAILY #60 tabs 07/05/24 (L-Carnitine) lorazepam 1 mg tablet 1 mg PO DAILY PRN anxiety #30 tabs 10/26/24 progesterone micronized 100 mg 100 mg PO QAM 21 days #21 caps 10/28/24 capsule benztropine 1 mg tablet 1 mg PO BEDTIME #90 tabs 11/19/24 olanzapine 20 mg tablet 20 mg PO BEDTIME #90 tabs 12/01/24 guanfacine 1 mg tablet,extended 1 mg PO DAILY #90 tabs 12/19/24 release 24 hr levothyroxine 75 mcg capsule 75 mcg PO DAILY #90 caps 12/19/24 methylphenidate HCl 20 mg tablet 20 mg PO QAM #30 tabs 12/19/24 risperidone 0.5 mg tablet 0.5 mg PO BID PRN agitation #60 12/20/24 tabs carbamazepine 300 mg 300 mg PO BID 90 days #180 caps 12/28/24 capsule,extended release [id number] (Carbatrol) lithium carbonate 300 mg 300 mg PO BID #30 tabs 01/02/25 tablet,extended release carbamazepine 100 mg 100 mg PO BID as directed #60 caps 01/07/25 capsule,extended release [id number] (Carbatrol) chlorpromazine 25 mg tablet 25 - 50 mg (1 - 2 x 25 mg) PO 01/07/25 BEDTIME PRN sleep #30 tabs lithium carbonate 450 mg 450 mg PO BID #60 tabs 01/07/25 tablet,extended release memantine 7 mg capsule 7 mg PO DAILY #30 ea 01/07/25 sprinkle,extended release 24hr risperidone 1 mg tablet 1 mg PO BID as directed #60 tabs 01/07/25 zolpidem 5 mg tablet 5 mg PO BEDTIME PRN insomnia #30 01/07/25 tabs Allergies Allergy/AdvReac Type Severity Reaction Status Date / Time lamotrigine (From LAMICTAL) Allergy Severe rash Verified 01/07/25 13:13 permethrin (From ELIMITE) Allergy Mild RASH Verified 01/07/25 13:13 From AUGMENTIN AdvReac Unknown C-DIFF Uncoded 01/07/25 13:13 From Augmentin AdvReac Unknown C-DIFF Uncoded 01/07/25 13:13 Review of Systems Review of Systems: Yes all other systems are reviewed and are negative PMFSH Past Medical History Medical History (Updated 01/07/25 @ 16:29 by Simeon Edwards PA-C) Eczema IBS (irritable bowel syndrome) Tachycardia History of Clostridioides difficile infection History of skin cancer Psoriasis Hypothyroidism Bipolar 2 disorder Asthma Surgical History (Updated 09/19/24 @ 12:58 by Raeann Ca RN) History of tonsillectomy and adenoidectomy Social History Social History Household Members: Family Patient Tobacco Use Status: Never used Tobacco Tobacco use type: Cigarette Advance Directives: No Advance Directives Information Provided: Yes Do you have a plan to hurt others: No Plan Physical Exam Vital Signs: Vital Signs: Last Vital Signs Temp 97.8 F 01/07/25 16:30 Pulse 89 01/07/25 16:30 Resp 18 01/07/25 16:30 BP 114/81 01/07/25 16:30 Pulse Ox 97 01/07/25 16:30 O2 Del Method Room Air 01/07/25 16:30 BMI result Body Mass Index 26.6 GENERAL APPEARANCE: ?AxOx4, generally well-appearing, patient is sitting up in her hospital stretcher, conversing appropriately with appropriate eye contact and appropriate affect, no acute distress. HEENT: ?NC, AT. MMM. EOMI, clear conjunctiva, oropharynx clear. NECK: ?Supple without lymphadenopathy.? No stiffness or restricted ROM. HEART:? Normal rate and regular rhythm, normal S1/S2, no m/r/g LUNGS:? CTAB, moving air well. No crackles or wheezes are heard. ABDOMEN: ?Soft, nontender, nondistended with good bowel sounds heard. BACK: No CVAT, no obvious deformity. EXTREMITIES: ?Without cyanosis, clubbing or edema. NEUROLOGICAL: ?Grossly nonfocal. Alert and oriented, moving all 4 extremities. Observed to ambulate with normal gait. Skin: ?Warm and dry without any rash. Medical Decision Making Medical Decision Making MDM Narrative: 44-year-old female with medical history of eczema, IBS, psoriasis, hypothyroidism, bipolar 2 disorder, asthma presents to the ED from [facility] due to passive SI and concerns her medications are not working. Patient states she felt ?overwhelmed? today however she is unable to describe a particular trigger. Denies physical complaints, denies SI, HI, AH, VH VS on initial observation-BP 163/90, pulse rate of 103, respiratory rate of 18, afebrile with oral temp of 97.8?, O2 saturation 99% on room air. On physical exam patient is alert and oriented x3, patient is conversive, engages in appropriate eye contact, has a appropriate affect. Labs without leukocytosis/leukopenia, no evidence of anemia, no electrolyte abnormalities. Toxicology positive for benzodiazepines, and marijuana. When speaking with behavioral health specialist Parul Drake who evaluated the patient. The patient told Hansa she made passive SI statements while at [facility] today and explains she recently had a med change where lithium was completely discontinued. She has been restarted on a decreased dose of lithium for less than a week. While discussing this with Hansa the patient stated that she should probably give the medication more time to get adjusted to this new dose. The patient denies suicidal ideation, homicidal ideation, AH, VH. The patient will present to [facility] tomorrow morning for further evaluation and management of her psychiatric issues. Patient feels well enough to go home for self-care, and is in agreement with the plan. VS prior to discharge, BP and heart rate has resolved. BP 114/81, heart rate of 89 Differential Diagnosis Differential Diagnoses: The differential diagnosis associated with the presentation includes Increased depression Increased anxiety Suicidal ideation Psychosis Admission/Observation Consideration of admission/observation: Escalation of care including admission/observation considered Consult Healthcare Provider Management of the patient was discussed with: Strip Catcher (CARE team Parul Drake ) Lab Data MDM Lab Attestation statement: I reviewed the patient's lab results. 01/07/25 13:57 01/07/25 13:57 Labs: Lab Results 01/07/25 01/07/25 Range/Units 13:57 14:07 WBC 9.8 (4.8-10.8) X10*3/uL RBC 4.72 (4.20-5.50) X10*6/uL Hgb 13.8 (12.0-16.0) g/dl Hct 41.3 (37.0-47.0) % MCV 87.5 (80.0-98.0) fL MCH 29.2 (27.0-33.0) pg MCHC 33.4 (31.0-35.0) g/dl RDW 13.4 (11.0-16.0) % Plt Count 276 (160-400) X10*3/uL MPV 10.0 (9.4-12.3) fL Immature Gran % (Auto) 0.3 (0.0-0.4) % Neut % (Auto) 60.3 (45-73) % Lymph % (Auto) 31.1 (20-40) % [place] % (Auto) 5.0 (2-11) % Eos % (Auto) 2.4 (0-4) % Baso % (Auto) 0.9 (0-2) % Lymph # (Auto) 3.0 (1.2-4.9) X10*3/uL [place] # (Auto) 0.5 (0.1-1.2) X10*3/uL Eos # (Auto) 0.2 (0.0-0.4) X10*3/uL Baso # (Auto) 0.1 (0.0-0.2) X10*3/uL Abs Immat Gran (auto) 0.03 (0.00-0.03) X10*3/uL Absolute Neuts (auto) 5.9 (2.0-8.3) x10*3/uL Absolute Nucleated RBC 0.000 (0.0-0.012) X10*3/uL Nucleated RBC % (auto) 0.0 (0.0-0.2) /100WBC Sodium 139 (135-145) mmol/L Potassium 3.3 (3.3-5.1) mmol/L Chloride 109 H (96-108) mmol/L Carbon Dioxide 21 L (22-29) mmol/L Anion Gap 12 (12-20) BUN 13 (9-16) mg/dL Creatinine 0.91 (0.5-1.4) mg/dL Estim Creat Clear Calc 72.3 Estimated GFR > 60 Random Glucose 121 H (60-115) mg/dL Calcium 8.9 (8.4-10.2) mg/dL Total Bilirubin 0.2 (0.0-1.0) mg/dL AST 16 (5-31) U/L ALT 13 (0-31) U/L Alkaline Phosphatase 82 (39-117) U/L Total Protein 7.5 (6.5-8.0) g/dL Albumin 4.3 (3.5-5.0) g/dL Urine Test NEGATIVE (NEGATIVE) Urine Opiates Screen Not Detected (Not Detect) Ur Buprenorphine Scrn Not Detected (Not Detect) ng/mL Ur Oxycodone Screen Not Detected (Not Detect) ng/mL Urine Methadone Screen Not Detected (Not Detect) ng/mL Urine Fentanyl Screen Not Detected (Not Detect) Ur Barbiturates Screen Not Detected (Not Detect) Ur Phencyclidine Scrn Not Detected (Not Detect) Ur Amphetamines Screen Not Detected (Not Detect) U Benzodiazepines Scrn POSITIVE H (Not Detect) Urine Cocaine Screen Not Detected (Not Detect) U Marijuana (THC) Screen POSITIVE H (Not Detect) Ethyl Alcohol 12 mg/dL External Record Review External record reviewed: Inpatient record, Office record and Outpatient record Chronic Conditions Patient?s care impacted by: Other (Eczema, IBS, psoriasis, hypothyroidism, bipolar 2 disorder, asthma) Social Determinants Patient?s care significantly limited by Social Determinants of Health including: Other Social Determinant of Health Discharge Plan Discharge Clinical Impression: Depression Patient Disposition: Home, Self-Care Additional Instructions: You were evaluated in the emergency department today for increased depression, and concerns of recent medication change. Please follow up with PHP tomorrow morning for additional evaluation and management of your psychiatric medications. Please return to the emergency department if you experience worsening depression, suicidal ideation, homicidal ideation, visual hallucinations, auditory hallucinations, chest pain, shortness of breath, fevers over 100.4? or any new/worsening/concerning symptoms. Prescriptions: No Action benztropine 1 mg tablet 1 mg PO BEDTIME Qty: 90 0RF olanzapine 20 mg tablet 20 mg PO BEDTIME Qty: 90 0RF methylphenidate HCl 20 mg tablet 20 mg PO QAM Qty: 30 0RF Rx Instructions: Partial Fill upon patient request. guanfacine 1 mg tablet extended release 24 hr 1 mg PO DAILY Qty: 90 0RF Rx Instructions: at 5pm levothyroxine 75 mcg capsule 75 mcg PO DAILY Qty: 90 0RF risperidone 0.5 mg tablet 0.5 mg PO BID PRN (Reason: agitation) Qty: 60 0RF carbamazepine [Carbatrol] 300 mg capsule, ER multiphase 12 hr 300 mg PO BID 90 Days Qty: 180 0RF L-Carnitine 500 mg tablet 500 mg PO DAILY Qty: 60 1RF Rx Instructions: must administer with a meal/food lorazepam 1 mg tablet 1 mg PO DAILY PRN (Reason: anxiety) Qty: 30 0RF progesterone micronized 100 mg capsule 100 mg PO QAM 21 Days Qty: 21 2RF Rx Instructions: start on Day 5 of menses- continue for 21 days, off 7 days; repeat cycle lithium carbonate 300 mg tablet extended release 300 mg PO BID Qty: 30 0RF diazepam 5 mg tablet See Rx Instructions .ROUTE .COMPLEX PRN (Reason: dystonic reaction) Rx Instructions: Take 1/2 tab at 5:00 pm and 1 tab at bedtime. carbamazepine [Carbatrol] 100 mg capsule, ER multiphase 12 hr 100 mg PO BID Qty: 60 0RF risperidone 1 mg tablet 1 mg PO BID Qty: 60 0RF chlorpromazine 25 mg tablet 25 - 50 mg PO BEDTIME PRN (Reason: sleep) Qty: 30 0RF zolpidem 5 mg tablet 5 mg PO BEDTIME PRN (Reason: insomnia) Qty: 30 0RF lithium carbonate 450 mg tablet extended release 450 mg PO BID Qty: 60 0RF memantine 7 mg capsule,sprinkle,ER 24hr 7 mg PO DAILY Qty: 30 0RF Interventions: [place]-Suicide Risk Severity Scale Last Done: 01/07/25 13:14 Print Language: Mexican
[2025-01-07 14:22] LABS: Hematocrit 41.3 % (37.0-47.0); Hemoglobin 13.8 g/dl (12.0-16.0); Imm Gran Abs Auto 0.03 X10*3/uL (0.00-0.03); Imm Gran Pct Auto 0.3 % (0.0-0.4); Lymphocytes Absolute Auto 3.0 X10*3/uL (1.2-4.9); MANUAL DIFF FLAG NO; Mean Corpuscular HGB Conc 33.4 g/dl (31.0-35.0); Mean Corpuscular Hemoglobin 29.2 pg (27.0-33.0); Mean Corpuscular Volume 87.5 fL (80.0-98.0); NRBC Abs Auto 0.000 X10*3/uL (0.0-0.012); NRBC Pct Auto 0.0 /100WBC (0.0-0.2); Platelet Count 276 X10*3/uL (160-400); Red Blood Count 4.72 X10*6/uL (4.20-5.50); White Blood Count 9.8 X10*3/uL (4.8-10.8)
[2025-01-07 14:38] LABS: UPreg QC Valid YES
[2025-01-07 14:39] LABS: Cannabinoid Screen Urine POSITIVE (Not Detect)
[2025-01-07 14:43] LABS: Alanine Aminotransferase 13 U/L (0-31); Albumin Level 4.3 g/dL (3.5-5.0); Alkaline Phosphatase 82 U/L (39-117); Anion Gap 12 (12-20); Aspartate Amino Transferase 16 U/L (5-31); Blood Urea Nitrogen 13 mg/dL (9-16); Calcium 8.9 mg/dL (8.4-10.2); Carbon Dioxide 21 mmol/L (22-29); Chloride 109 mmol/L (96-108); Creatinine Clr Calc Pharmacy 72.3; Estimated Glomerular Filt Rate > 60; Potassium 3.3 mmol/L (3.3-5.1); Sodium 139 mmol/L (135-145); Total Protein 7.5 g/dL (6.5-8.0)
[2025-01-07 16:30] VITALS: BP 114/81; PULSE 89; RESP 18; TEMP 36.6; O2SAT 97
[2025-01-07 16:38] VITALS: BP 114/81; PULSE 89; RESP 18; TEMP 36.6
[2025-01-07 16:45] LABS: Appearance Urine Cloudy; Glucose Urine UA Negative (Negative); PH 6.0 (5.0-9.0); Specific Gravity - Urine 1.010 (1.005-1.025); UMIC TRIGGER UACC YES
[2025-01-07 16:56] LABS: UACC Culture Trigger YES
--- OUTSIDE RECORDS SUMMARY | 2025-01-08 01:09 | XMS_ITS | Clinical Summary ---
Author Organization [facility] Address [address] [place] [address] Phone Care Team Providers Care Music Instructor Name Role Phone Renuka Ramírez MD Primary [...] Office Visit [facility] [address] [place] [address] [place] [address] Izzy Bradshaw MD Routine gynecological examination (Primary [...] Pap Test (10/23/2024 12:00 AM EDT) Report [address] [address] Loom Control Chain Builder: Deion Jaeger MD GAS TORCH SOLDERER Cytology Report FINAL DIAGNOSIS A. PAP SMEAR (THIN PREP) CE: SPECIMEN ADEQUACY: Satisfactory for evaluation; transformation zone absent/insufficien t. INTERPRETATION: NEGATIVE FOR INTRAEPITHELIAL LESION OR MALIGNANCY. This specimen was analyzed by the automated Row Sham BowPrep Imaging System ([employer].) and the selected gary were reviewed by a supervisor instrument mechanics. Electronically Signed Out By: THIAGO Evans(ASCP) The [...] by real-time polymerase chain reaction (PCR) at [facility], [address] [place] [address] using the FDA-approved NativeX Onclarity HPV Assay with extended genotyping. Uses of the assay in scenarios other than those approved by the FDA should be considered off-label use. The accuracy and precision of this test for all other off-label specimen sources has been verified in the Cytopathology Laboratory of the [facility] and has not been cleared or [...] (Age: 44) Sex: F Institution: [facility] Location: GOBGYN Date of Collection: 10/23/2024 Date of Reported: 10/28/2024 08:03 Results to: Izzy Bradshaw MD [facility] Final Diagnosis A. PAP SMEAR (THIN PREP) CE: SPECIMEN ADEQUACY: Satisfactory for evaluation; transformation zone absent/insufficien t. INTERPRETATION: NEGATIVE FOR INTRAEPITHELIAL LESION OR MALIGNANCY. This specimen was analyzed by the automated ThinPrep Imaging System ([employer].) and the selected gary were reviewed by a supervisor instrument mechanics. [facility] Results\Inter pretation A. PAP SMEAR (THIN PREP) CE: High-risk HPV Panel w/ extended genotyping NEG HPV 16-NEG HPV 18-NEG HPV 45-NEG HPV 33/58-NEG HPV 31-NEG HPV 56/59/66-NEG HPV 51-NEG HPV 52-NEG HPV 35/39/68-NEG Performed by real-time polymerase chain reaction (PCR) at [facility], [address] [place] [address] using the FDA-approved NativeX Onclarity HPV Assay with extended genotyping. Uses of the assay in scenarios other than those approved by the FDA should be considered off-label use. The accuracy and precision of this test for all other off-label specimen sources has been verified in the Cytopathology Laboratory of the [facility] and has not been cleared or approved by the U.S. Food and Drug Administration. Clinical correlation is advised. The assay assesses the E6/E7 DNA target and utilizes human beta globin as an internal control. Cytology and HPV testing are screening assays and should not be used as the sole means of detecting cancer. False-positives and false-negatives can occur. [facility] Conversion Type (Conversion Source) 10/23/2024 10/24/2024 9:52 AM EDT us Izzy Bradshaw MD CYTOLOGY ORDERABLES Edited Res ult - Final [facility] [address] [place] [address] from Last 3 Months Insurance MEDICARE PART A & B [place] & B [facility]IC[facility] PART A & [place] & B HEALTH MEDICARE PART A & [place] B [facility] Care Teams Music Instructor Relationship Specialty Start Date End Date Renuka Ramírez MD [address] [address] PCP - General Family Medicine 09/09/24 Additional Source Comments The information contained in this document represents components of the legal health record. It is not the complete legal health record.[facility]
--- OUTSIDE RECORDS SUMMARY | 2025-01-08 01:10 | XMS_ITS | Clinical Summary ---
Author Organization [employer] [facility] Address [address] [place] [address] Care Team Providers Care Biztalk Developer Name Role Phone Unavailable Primary Care Provider Unavailabl e Social History Tobacco Use Types Packs/Day Years Used Date Smoking Tobacco: Never Assessed Sex and Gender Information Value Date Recorded Sex Assigned at Not on file Gender Identity Not on file Sexual Orientation Not on file Plan of Treatment Not on file
== END 2025-01-07 16:39 | disposition home or self-care (01) ==
PROVIDERS: Emergency Medicine; Emergency Provider Student in an Organized Health Care Education/Training Program; PCP Student in an Organized Health Care Education/Training Program
DX: F31.81 Bipolar II disorder (principal); R45.851 Suicidal ideations; Z79.899 Other long term (current) drug therapy
CPT/HCPCS: 36415; 80053; 80307; 81001; 81025; 85025; 87086; 99285; S9485

== ENCOUNTER → 2025-01-14 14:15 | Outpatient (REF) | payer MEDICARE, MEDICAID, SELFPAY ==
--- NOTE | 2025-01-14 14:20 | ECG_ITS ---
Test Reason : QTC CHECK Blood Pressure : */* mmHG Vent. Rate : 93 BPM Atrial Rate : 93 BPM P-R Int : 130 ms QRS Dur : 84 ms QT Int : 344 ms P-R-T Axes : 69 69 60 degrees QTcB Int : 427 ms Normal sinus rhythm Possible Left atrial enlargement Borderline ECG When compared with ECG of 06-Jan-2025 14:21, No significant change was found Referred By: Dee Griffin Electronically Signed By: Vivek Burgos
--- OUTSIDE RECORDS SUMMARY | 2025-01-14 17:11 | XMS_ITS | Data Portability ---
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 MA, ANNOTATI ON/ADDEN DUM Not Available [facility] 4 05:37:58 Ingrowin g nail 523918595 Completed 201109/29/2013 IMPRESSI ON: SOAK FOOT WARM WATER MULTIPLE TIMES A DAY PODIATRY APPT IN CASE NEEDS PARTIAL NAIL REMOVAL. SHE WILL CANCEL APPT IF BETTER.; RECORDED 02/19/20 12 1:39PM BY SHI BENOIT MA, MELITON ON/ADDEN DUM Not Available [facility] 4 05:37:58 Lymphade nopathy 11787821 Completed 201109/29/2013 IMPRESSI ON: BILAT, SCALP WITH SKIN LESION CAUSING LEFT OCCIPITA L NODE INVOLVEM ENT; RECORDED 02/19/20 12 1:39PM BY SHI BENOIT MA, ANNOTATI ON/ADDEN DUM Not Available [facility] 4 05:37:58 Malaise and fatigue 453068963 Completed 201109/29/2013 IMPRESSI ON: ON MEDS BY CHERYL MASON AND IN COUNSELI NG WEEKLY; RECORDED 02/19/20 12 1:40PM BY SHI BENOIT MA, ANNOTATI ON/ADDEN DUM Not Available [facility] 4 05:37:58 Blisters of multiple sites 588169008 Completed 201109/29/2013 RECORDED 02/19/20 12 1:39PM BY SHI BENOIT MA, ANNOTATI ON/ADDEN DUM Not Available [facility] 4 05:37:58 Herpetic gingivos tomatiti s 05167155 Completed 201109/29/2013 IMPRESSI ON: TX WITH DENAVIR; RECORDED 02/19/20 12 1:39PM BY SHI BENOIT MA, ANNOTATI ON/ADDEN DUM Not Available [facility] 4 05:37:58 Otalgia 44509822 Completed 201109/29/2013 IMPRESSI ON: X 3 DAYS, NO INFECTIO N, SUSPECT JAW JOINT INFLAMMA TION; RECORDED 02/19/20 12 1:40PM BY SHI BENOIT MA, ANNOTATI ON/ADDEN DUM Not Available [facility] 4 05:37:58 Pneumoni a [id number] Completed 201109/29/2013 IMPRESSI ON: IMPROVED ON LEVAQUIN , PREDNISO NE AND INHALERS IN PT WITH ASTHMA, WILL GET REPEAT CXT [facility] IN A WEEK,; RECORDED 02/19/20 12 1:40PM BY SHI BENOIT MA, KIKAATI ON/ADDEN DUM Not Available [facility] 4 05:37:59 Secondar y polycyth emia 13282922 Completed 201109/29/2013 IMPRESSI ON: PT SEEN YEST FOR ATYPICAL ECCHYMOT IC LESIONS. LABS DONE AND HGB TRENDING UP. TO HEM/ONC FOR FURTHER ASSESSME NT. NOT A SMOKER. CASE DISCUSSE D WITH DR. AARON Ramsay; RECORDED 02/19/20 12 1:39PM BY SHI BENOIT MA, KIKAATI ON/ADDEN DUM Not Available [facility] 4 05:37:59 Right upper quadrant pain 433074092 Completed 201109/29/2013 IMPRESSI ON: THE ECCHYMOT IC [...] MA, KIKAATI ON/ADDEN DUM Not Available [facility] 4 05:37:59 Sprain of shoulder and upper arm Completed 201109/29/2013 RECORDED 02/19/20 12 1:39PM BY SHI BENOIT MA, ANNOTATI ON/ADDEN DUM Not Available [facility] 4 05:37:59 Vaginiti s and vulvovag initis Completed 201109/29/2013 RECORDED 02/19/20 12 1:39PM BY SHI BENOIT MA, ANNOTATI ON/ADDEN DUM Not Available [facility] 4 05:37:59 Acute tonsilli tis 28160225 Completed 201209/02/2013 IMPRESSI ON: NEG QUICK STREP; RECORDED 03/06/19 13 1:55PM BY NYDIA CHRISTIANSEN MA, ANNOTATI ON/ADDEN DUM Not Available [facility] 4 14:53:49 Acute tonsilli tis 83775437 Completed 201209/29/2013 IMPRESSI ON: NEG QUICK STREP; RECORDED 03/06/19 13 1:55PM BY NYDIA CHRISTIANSEN MA, ANNOTATI ON/ADDEN DUM Not Available [facility] 4 05:37:59 Patient status finding [id number] Completed 201209/02/2013 RECORDED 06/06/19 13 11:40AM BY NYDIA CHRISTIANSEN MA, ANNOTATI ON/ADDEN DUM FRIEDA French [facility] 7 15:01:47 Patient status finding [id number] Completed 201209/29/2013 RECORDED 06/06/19 13 11:40AM BY NYDIA CHRISTIANSEN MA, ANNOTATI ON/ADDEN DUM FRIEDA French, [facility] 7 15:01:47 Backache [id number] Completed 201209/02/2013 IMPRESSI ON: CALL IN 1 WEEK IF NOT IMPROVIN G. WARNED OF DROWSINE SS WITH VICODIN AND FLEXERIL ; RECORDED 09/25/19 13 4:19PM BY NYDIA CHRISTIANSEN MA, KIKAATI ON/ADDEN DUM Idalmis prajapati [facility] 7 16:11:29 Screenin g for malignan t neoplasm of cervix Completed 201209/02/2013 RECORDED 09/25/19 13 4:19PM BY NYDIA CHRISTIANSEN MA, ANNOTATI ON/ADDEN DUM Not Available [facility] 4 14:53:45 Dysmenor rocael [id number] Completed 201209/02/2013 IMPRESSI ON: NL EXAM PAP AND CXS TODAY; RECORDED 09/25/19 13 4:19PM BY NYDIA CHRISTIANSEN MA, ANNOTATI ON/ADDEN DUM Not Available [facility] 4 14:53:46 Fall on or from stairs or steps Completed 201209/02/2013 RECORDED 09/25/19 13 4:19PM BY NYDIA CHRISTIANSEN MA, ANNOTATI ON/ADDEN DUM Not Available [facility] 4 14:53:46 Pain in limb 38099477 Completed 201209/02/2013 IMPRESSI ON: LIKELY CONTUSIO N WILL MAKE SURE NO FRACTURE ; RECORDED 09/25/19 13 4:19PM BY NYDIA CHRISTIANSEN MA, ANNOTATI ON/ADDEN DUM Not Available [facility] 4 14:53:48 Disorder of skin and/or subcutan eous tissue 17835731 Completed 201209/02/2013 IMPRESSI ON: SKIN OF VULVA WITH 6 REDDISH LESIONS SEEMS LIKE VASCULAR LESIONS BUT WILL HAVE DERM CHECK OUT; RECORDED 09/25/19 13 4:19PM BY NYDIA CHRISTIANSEN MA, ANNOTATI ON/ADDEN DUM Not Available [facility] 4 14:53:48 Backache [id number] Completed 201209/29/2013 IMPRESSI ON: CALL IN 1 WEEK IF NOT IMPROVIN G. WARNED OF DROWSINE SS WITH VICODIN AND FLEXERIL ; RECORDED 09/25/19 13 4:19PM BY NYDIA CHRISTIANSEN MA, ANNOTATI ON/ADDEN DUM Idalmis prajapati [place] - [facility] 7 16:11:29 Screenin g for malignan t neoplasm of cervix Completed 201209/29/2013 RECORDED 09/25/19 13 4:19PM BY NYDIA CHRISTIANSEN MA, KIKAATI ON/ADDEN DUM Not Available [facility] 4 05:37:58 Dysmenor rocael [id number] Completed 201209/29/2013 IMPRESSI ON: NL EXAM PAP AND CXS TODAY; RECORDED 09/25/19 13 4:19PM BY NYDIA CHRISTIANSEN MA, KIKAATI ON/ADDEN DUM Not Available [facility] 4 05:37:58 Fall on or from stairs or steps Completed 201209/29/2013 RECORDED 09/25/19 13 4:19PM BY NYDIA CHRISTIANSEN MA, MELITON ON/ADDEN DUM Not Available [facility] 4 05:37:58 Pain in limb 55338075 Completed 201209/29/2013 IMPRESSI ON: LIKELY CONTUSIO N WILL MAKE SURE NO FRACTURE ; RECORDED 09/25/19 13 4:19PM BY NYDIA CHRISTIANSEN MA, ANNOTATI ON/ADDEN DUM Not Available [facility] 4 05:37:59 Disorder of skin and/or subcutan eous tissue 96242620 Completed 201209/29/2013 IMPRESSI ON: SKIN OF VULVA WITH 6 REDDISH LESIONS SEEMS LIKE VASCULAR LESIONS BUT WILL HAVE DERM CHECK OUT; RECORDED 09/25/19 13 4:19PM BY NYDIA CHRISTIANSEN MA, KIKAATI ON/ADDEN DUM Not Available [facility] 4 05:37:59 Influenz a vaccine needed 28724446075 06 Completed 201209/02/2013 RECORDED 10/26/19 13 2:51PM BY JUDIE BOTELLO, OFFICE VISIT Not Available [facility] 4 14:53:46 Influenz a vaccine needed 60620682630 06 Completed 201209/29/2013 RECORDED 10/26/19 13 2:51PM BY JUDIE BOTELLO, OFFICE VISIT Not Available [facility] 4 05:37:58 Diarrhea 99963563 Completed 201209/02/2013 IMPRESSI ON: NEW PROBLEM, PT WILL SEE DR MARION FOR EVAL,; RECORDED 01/11/20 13 10:05AM BY SHI BENOIT MA, ANNOTATI ON/ADDEN DUM Not Available [facility] 4 14:53:45 Eruption [id number] Completed 201209/02/2013 IMPRESSI ON: FROM PICKING HER HEAD WITH NERVES, NO INFECTIO N, TREAT WITH CREAM; RECORDED 01/11/20 13 10:05AM BY SHI BENOIT MA, KIKAATI ON/ADDEN DUM FRIEDA French, [facility] 7 15:02:11 Diarrhea 90709115 Completed 201209/29/2013 IMPRESSI ON: NEW PROBLEM, PT WILL SEE DR MARION FOR EVAL,; RECORDED 01/11/20 13 10:05AM BY SHI BENOIT MA, ANNOTATI ON/ADDEN DUM Not Available [facility] 4 05:37:58 Eruption [id number] Completed 201209/29/2013 IMPRESSI ON: FROM PICKING HER HEAD WITH NERVES, NO INFECTIO N, TREAT WITH CREAM; RECORDED 01/11/20 13 10:05AM BY SHI BENOIT MA, ANNOTATI ON/ADDEN DUM FRIEDA French, [facility] 7 15:02:11 Anemia 028740733 Completed 201303/30/2016 RECORDED 06/21/19 14 2:38PM BY SHI BENOIT MA, OFFICE VISIT Idalmis prajapati [facility] 7 16:11:49 Alopecia 17984031 Completed 201303/30/2016 RECORDED 06/21/19 14 2:38PM BY SHI BENOIT MA, OFFICE VISIT Idalmis prajapati [facility] 7 16:12:02 Anxiety state 365927882 Active 2013 FRIEDA Goyal, [facility] 8 15:03:46 Asthma 821278571 Completed 201310/02/2019 Idalmis prajapati, [facility] 0 10:11:13 Bipolar I disorder 677049350 Active 2013 FRIEDA Goyal, [facility] 8 15:03:43 Disorder of coccyx 34418144 Completed 201303/30/2016 IMPRESSI ON: PAIN FORM FALL NO XRAY NEEDED, TIME AND MOTRIN; RECORDED 06/21/19 14 2:38PM BY SHI BENOIT MA, OFFICE VISIT Idalmis prajapati [facility] 7 16:12:05 History of depressi on 223826878 Completed 201309/02/2013 RECORDED 06/21/19 14 2:38PM BY SHI BENOIT MA, ANNOTATI ON/ADDEN DUM Not Available [facility] 4 14:53:45 Adult health examinat ion Completed 201309/02/2013 IMPRESSI ON: NOT DUE FOR A PAP, BREAST EXAM TODAY, INCREASE EXERCISE ; RECORDED 06/21/19 14 2:37PM BY SHI BENOIT MA, ANNOTATI ON/ADDEN DUM Not Available [facility] 4 14:53:46 Pain of hip region 22109566 Completed 201303/30/2016 IMPRESSI ON: FELL 10 DAYS AGO, PAIN IN BILATERA L HIPS, WILL GET XRAY TO RULE OUT FRACTURE THOUGH UNLIKELY MOTRINA ND REST; RECORDED 06/21/19 14 2:38PM BY SHI BENOIT MA, OFFICE VISIT Idalmis prajapati [facility] 7 16:11:59 Impacted cerumen 62599965 Completed 201303/29/2016 IMPRESSI ON: EAR LAVAGE PERFORME D, CERUMEN REMOVED; RECORDED 06/21/19 14 4:08PM BY AMARILIS LE, OFFICE VISIT FRIEDA French, [facility] 7 15:01:56 Insomnia 182413760 Completed 201303/30/2016 IMPRESSI ON: BETTER MEDS HELPING; RECORDED 06/21/19 14 2:38PM BY SHI BENOIT MA, OFFICE VISIT Idalmis prajapati [facility] 7 16:11:37 Low back pain 591333688 Completed 201309/02/2013 IMPRESSI ON: FOR MONTHS, HX OF A FEW FALLS, PT TO SET UP PT ORDER TO PT TODAY; RECORDED 06/21/19 14 2:38PM BY SHI BENOIT MA, ANNOTATI ON/ADDEN DUM FRIEDA French, [facility] 7 15:02:14 Single major depressi ve episode Completed 201311/23/2016 IMPRESSI ON: ON MEDS BUT DEPRESSI ON IS ACTIVE, CONTINUE MEDS AND PSYCHIAT RY AND COUNSELI NG VISITS; RECORDED 06/21/19 14 2:38PM BY SHI BENOIT MA, OFFICE VISIT Idalmis prajapati [facility] 7 13:39:20 Neoplasm of uncertai n behavior of skin 87157347 Completed 201303/30/2016 IMPRESSI ON: NODULE IN EAR WITH TELENGIE CTASIA CONCERNI NG FOR MALIGNAN CY. ENT TO FURTHER ASSESS; RECORDED 06/21/19 14 4:06PM BY AMARILIS LE, OFFICE VISIT Idalmis prajapati [facility] 7 16:12:10 Patient status finding 396680007 Completed 201303/29/2016 RECORDED 06/21/19 14 2:38PM BY SHI BENOIT MA, OFFICE VISIT FRIEDA French [facility] 7 15:01:47 Otitis media 39416921 Completed 201303/29/2016 IMPRESSI ON: UNCLEAR IF REALLY INFECTED . SHE WILL DO FLONASE AND MUCINEX- D FOR 2 DAYS. IF NOT BETTER, SHE WILL START ABX; RECORDED 06/21/19 14 4:08PM BY AMARILIS LE, OFFICE VISIT FRIEDA French, [facility] 7 15:02:45 History of psychiat chiki disorder 262227344 Completed 201303/30/2016 RECORDED 06/21/19 14 2:38PM BY SHI BENOIT MA, OFFICE VISIT Idalmis NyTorie lathamenzwisam prajapati [facility] 7 16:11:26 Acute upper respirat ory infectio n 30445553 Completed 201303/29/2016 RECORDED 06/21/19 14 3:30PM BY AMARILIS LE, OFFICE VISIT FRIEDA French, [facility] 7 15:02:38 History of depressi on 008070833 Completed 201309/29/2013 RECORDED 06/21/19 14 2:38PM BY SHI BENOIT MA, ANNOTATI ON/ADDEN DUM Not Available [facility] 4 05:37:58 Adult health examinat ion Completed 201309/29/2013 IMPRESSI ON: NOT DUE FOR A PAP, BREAST EXAM TODAY, INCREASE EXERCISE ; RECORDED 06/21/19 14 2:37PM BY SHI BENOIT MA ANNOTMANAN ON/ADDEN DUM Not Available [facility] 4 05:37:58 Low back pain 189017169 Completed 201309/29/2013 IMPRESSI ON: FOR MONTHS, HX OF A FEW FALLS, PT TO SET UP PT ORDER TO PT TODAY; RECORDED 06/21/19 14 2:38PM BY SHI BENOIT MA, ANNOTATI ON/ADDEN DUM FRIEDA French, [facility] 7 15:02:14 Dysfunct ional uterine bleeding Active 2016 FRIEDA Goyal, [facility] 8 15:03:51 Hypothyr oidism 67088721 Active 2017 FRIEDA Goyal, [facility] 8 15:04:12 History of intestin al infectio n caused by Clostrid ioides difficil e 42379810557 9101 Completed 201704/10/2023 JARVIS NGUYEN MD [address] [address], [place], [address] , [facility] 4 08:20:32 Mild intermit tent asthma 942174586 Active 2019 Idalmis nicolas null, [facility] 0 10:09:22 Eczema 42091254 Active 2020 Judie Botello MA null, [facility] 1 15:05:27 Psoriasi s 2512373 Active 2022 Dominga Jameson null, [facility] 3 07:52:52 Irritabl e bowel syndrome with diarrhea 036116667 Active 2022 Dominga Jameson [facility], [facility] 3 07:53:26 Problem Notes None recorded. Procedures Surgical History Date Name Laterality Status Provider Name and Address Organization Details Recorded Time 10/17/19 25 Cerumen Removal completed JARVIS NGUYEN MD [address] [address], [place], [address], [facility] 10/16/2024 14:35:12 05/16/19 25 Most Recent Mammogram completed Katharina Alvarez [facility] 05/16/2024 12:53:24 05/16/19 25 Mammogram screening completed Katharina Alvarez [facility] 05/16/2024 12:53:06 07/15/19 23 Dressing Change completed JARVIS NGUYEN MD [address] [address], [place], [address], [facility] 07/14/2022 07:44:40 06/20/19 23 Suture/Staple removal completed JARVIS NGUYEN MD [address] [address], [place], [address], [facility] 06/19/2022 10:34:36 06/17/19 23 Suture/Staple removal completed JARVIS NGUYEN MD [address] [facility] [address], [place], [address], [facility] 06/15/2022 09:30:10 12/21/19 21 Date of Last Pap Smear completed Judie Botello [facility] 12/22/2020 11:07:59 05/03/19 19 Mini-Cog Test completed Judie Botello [facility] 05/02/2018 08:44:28 07/25/19 17 Mini-Cog Test completed Judie Botello [facility] 07/24/2016 14:56:47 10/01/19 16 Suture/Staple removal completed Estrellita Pitt PA-C [address] [facility] [address], [place], [address], [facility] 10/01/2015 14:56:47 Tonsillectomy completed Shi Benoit [facility] 09/04/2013 15:46:02 Imaging Results None recorded. Procedure Notes None recorded. Medical Equipment None Reported. Allergies Allergen ID Allergen Name Allergen Category Reaction Reaction Severity Criticality Documentation Date Start Date Code Code System Note Provider Name and Address Organization Details Recorded Time 67116 Elimite medicatio n rash Not available Not available 10/22/2013 91090 5 RxNorm Idalmis prajapati [facility] 4 11:49:40 36007 amoxicill in / clavulana te medicatio n diarrhea Not available Not available 01/12/20252013 67763 RxNorm Not Available jose - External Data Service - prod 5 14:49:27 32685 permethri n medicatio n rash Not available Not available 01/12/2025 99376 RxNorm Not Available jose [employer] External Data Service - prod 14:49:27 6664 Augmentin medicatio n diarrhea Not available Not available 09/02/20132013 20727 2 RxNorm BrendanFRIEDA Baptiste MA - [facility] 8 15:06:49 6665 No known allergy (situatio n) Not available Not available Not available Not available 09/02/20132011 12255 6003 SNOMED COMME NT: RECOR DED 11/01 10:34 AM BY SAL GUTHRIE MA, KIKA ATION /ADDE NDUM; Not Available [facility] 4 13:24:03 Medications Name Sig Start [...] RECORDED 06/25/19 10 1:45PM BY HEATH SMITH, [employer] [facility] [facility]SLIM MANNING; Not Available Not Available Not [...] Not Available cephalexi n 500 mg capsule FOUR TIMES DAILY for 5 days. 2024 active Not Available Not Available Not Avai lable triamcino lone acetonide 0.1 % topical ointment [...] BY TOPICAL ROUTE 3 TIMES PER DAY 2024 active Not Available Not Available Not Avai lable zolpidem 5 mg tablet TAKE 1 TABLET [...] 09/18/19 10 8:54AM BY TAO JUAREZ, OFFICE VISIT;[facility] Not Available Not Available Not Available Spiriva with [employer] r 18 mcg and inhalatio n capsules active Not Available Not Available Not Available carbamaze pine ER 200 mg capsule,e xtended release [id number] r TAKE 2 CAPSULES BY MOUTH TWICE A DAY 10/16 completed Not Available Not Available Not Available carbamaze pine ER 300 mg capsule,e xtended release [id number] r TAKE 1 CAPSULE BY MOUTH TWICE [...] OFFICE VISIT;TH IS ORDER DISCONTI NUED PER [facility]. Not Available Not Available Not Available [...] (BMI) Body weight Heart rate Oxygen saturation Body temperature Systolic And Diastolic Provider Name and Address Organization Details Last Updated DateTime 5 160.02 cm 27.5 kg/m2 19999.8 2 g 137 /min 97 % 98 [degF] 114/83 mm[Hg] Princess honeycutt MA [facility] 5 09:06:33 Date Recorded Body height Body mass index (BMI) Body weight Heart rate Oxygen saturation Body temperature Systolic And Diastolic Provider Name and Address Organization Details Last Updated DateTime 5 160.02 cm 28.5 kg/m2 37196.3 7 g 101 /min 98 % 98.1 [degF] 114/82 mm[Hg] Brianna Norwood [facility] 5 14:07:16 Date Recorded Body height Body mass index (BMI) Body weight Heart rate Oxygen saturation Body temperature Systolic And Diastolic Provider Name and Address Organization Details Last Updated DateTime 5 160.02 cm 28.2 kg/m2 97369.1 9 g 104 /min 97 % 98.3 [degF] 113/82 mm[Hg] Brianna Norwood [facility] 5 14:47:39 Date Recorded Body height Provider Name an d Address Organization Details Last Updated DateTime 01/12/2025 160.02 cm Brianna Norwood MA [facility] 01/12/2025 15:00:02 Social History Question Answer Notes LastModified by Organizat ion Details LastModified Time Tobacco Smoking Status Never Smoker Shi prajapati [facility] 09/04/2013 15:53:32 Do You Have An Advance Directive? No Information not available 01/20/2022 Is Blood Transfusion Acceptable In An Emergency? Yes [email or web address] Information not available 10/16/2014 What Is Your Level Of Caffeine Consumption? Occasional Seldom Information not available 08/27/2020 How Much Tobacco Do You Chew? None [email or web address] Information not available 08/04/2019 What Type Of Diet Are You Following? REGULAR Eating Mostly Chicken And Fish [email or web address] Information not available 04/05/2022 Which Illicit Or [...] Take Precautions To Prevent Distracted Driving? Yes [email or web address] Information not available 10/16/2014 How Often Do You Need To Have Someone Help You When You Read Instructions, Pamphlets, Or Other Written Material From Your Doctor Or Pharmacy? Sometimes [email or web address] Information not available 10/16/2014 Have You Served In The ? No [email or web address] Information not available 12/22/2020 Have You Or Anyone In Your Household Had Any Of The Following Symptoms In The Last 14 Days: Sore Throat, Cough, Chills, Body Aches For Unknown Reasons, Shortness Of Breath For Unknown Reasons, Loss Of Smell, Loss Of Taste, Fever At Or Greater Than 100 Degrees Fahrenheit? No [email or web address] Information not available 08/18/2019 Are You Or Anyone In Your Household A Health Care Provider Or Emergency Responder? No [email or web address] Information not available 08/18/2019 To The Best Of Your Knowledge Have You Been In Close Proximity To Any Individual Who Tested Positive For COVID-19? No Information not available 08/18/2019 *AWV ONLY* Are You Presently Prescribed Opioid Medication By PCP Or Specialist? If YES -Provider Assess The Benefit For Other, Non-opioid Pain Therapies Instead, Even If The Patient Does Not Have OUD But Is Possibly At Risk. No Information not available 12/22/2020 Have You Recently Traveled To A COVID-19 High Risk Area Or Gathering In The Last 10 Days? No [email or web address] Information not available 03/18/2020 What Was The Date Of Your Most Recent Tobacco Screening? 06/30/2024 [email or web address] Information not available 06/30/2024 How Many Children Do You Have? 0 Information not available 08/27/2020 What Is Your Relationship Status? Single Information not available 01/20/2022 Seat Belts Used Routinely Yes Information not available 01/20/2022 Are You Sexually Active? Yes Woman Partner [email or web address] Information not available 02/15/2015 Smoke Alarm In Home Yes Information not available 01/20/2022 At What Age Did You Start Smoking Tobacco? 0 [email or web address] Information not available 08/04/2019 How Much Tobacco Do You Smoke? No [email or web address] Information not available 08/04/2019 General Stress Level Medium Information not available 01/20/2022 Do You Use Sunscreen Routinely? Yes [email or web address] Information not available 10/16/2014 Sex: Unknown Functional Status Question Answer Note LastModified by Organizat ion Details LastModified Time What is your level of alcohol consumption? None Information not available 08/27/2020 Do you or have you ever used smokeless tobacco? Never used smokeless tobacco [email or web address] Information not available 08/04/2019 Are you currently employed? No [email or web address] Information not available 02/15/2015 Are you able to walk independently without assistance or assistive devices? YESWOREST Information not available 01/20/2022 Are you able to care for yourself independently? Yes [email or web address] Information not available 02/15/2015 What is your [...] Time Mother Carcinoma in situ of breast [email or web address] Not available 02/15 11:12:37 Maternal Grandmother Carcinoma in situ of breast [email or web address] Not available 02/15 11:12:37 Maternal Grandfather Myocardial infarction [email or web address] Not available 01/20 11:12:37 Notes:No FH of colon cancer Medical History Condition Response Coronary Artery Disease N Other N Gout N Kidney Stones N Blood Diseases N Hyperthyroidism Y Breast Cancer N mrsa exposure N Hypothyroidism N Depression Y COPD N Lung Disease N Developmental or Behavioral Disorders N Defects [...] Details Recorded Time [facility]dap 6 [facility] 13:24:33 Influenza, split virus, quadrivalent, PF 5 completed Not Available [facility] 03/08/2019 02:22:02 pneumococcal polysaccharide PPV23 5 completed Not Available [facility] 03/08/2019 02:21:42 COVID-19, mRNA, LNP-S, PF, 30 mcg/0.3 mL dose 1 completed FRIEDA Dexter [facility] 01/20/2022 13:24:02 COVID-19, mRNA, LNP-S, PF, 30 mcg/0.3 mL dose 1 [facility]/2022 13:24:02 COVID-19, mRNA, LNP-S, PF, 30 mcg/0.3 mL dose 1 completed FRIEDA Dexter, [facility] 01/20/2022 13:24:02 COVID-19, mRNA, LNP-S, bivalent, PF, 30 mcg/0.3 mL dose 2 completed FRIEDA Dexter, [facility] 01/20/2022 13:24:33 Td (adult), 5 Lf tetanus toxoid, preservative free, adsorbed 4 completed FRIEDA Dexter, [facility] 01/20/2022 13:24:33 Influenza, MDCK, quadrivalent, PF 0 completed FRIEDA Dexter, [facility] 01/20/2022 13:24:33 Tdap 3 completed FRIEDA French, [facility] 08/17/2022 11:37:19 Influenza, split virus, quadrivalent, PF 3 completed FRIEDA French, [facility] 04/26/2023 14:40:16 Influenza, split virus, quadrivalent, PF 6 completed Not Available [facility] 03/08/2019 02:22:04 Influenza, split virus, quadrivalent, PF 7 completed Not Available [facility] 03/08/2019 02:22:11 Influenza, split virus, quadrivalent, PF 8 completed Not Available [facility] 03/08/2019 02:22:15 Influenza, split virus, trivalent, PF 4 completed Not Available [facility] 03/08/2019 02:21:57 Influenza, split virus, quadrivalent, PF 9 completed Not Available [facility] 03/08/2019 02:22:10 Influenza, split virus, quadrivalent, PF 1 completed Idalmis prajapati, [facility] 12/22/2020 11:24:47 Meningococcal MCV4O 6 completed Not Available [facility] 09/02/2013 13:58:38 Influenza, split virus, trivalent, preservative 7 completed Not Available [facility] 09/02/2013 13:58:38 Influenza, split virus, trivalent, preservative 8 completed Not Available [facility] 09/02/2013 13:58:38 Tdap 8 completed Not Available [facility] 09/02/2013 13:58:38 Influenza, split virus, trivalent, preservative 0 completed Not Available [facility] 09/02/2013 13:58:38 Influenza, split virus, trivalent, preservative 1 completed Not Available [facility] 09/02/2013 13:58:38 Influenza, split virus, trivalent, preservative 2 completed Not Available [facility] 09/02/2013 13:58:38 influenza, seasonal, intradermal, preservative free 3 completed Not Available [facility] 09/02/2013 13:58:38 Influenza, split virus, quadrivalent, PF 2 completed Idalmis dooley null, [facility] 12/01/2021 10:15:17 Influenza, split virus, trivalent, PF 4 completed JARVIS NGUYEN MD [address], [address], [facility] 12/21/2023 19:00:12 Past Encounters Encounter ID Performer Location Encounter Start Date Encounter Closed Date Diagnosis/Indication Diagnosis SNOMED-CT Code Diagnosis ICD10 Code Diagnosis IMO Codes Diagnosis Note [id number] ALEX Maya Main Office [address] [address] 09/04/2013 15:31:37 09/04/2013 17:14:27 Anxiety 88035889 Chest pain 33871122 Abdominal pain [id number] [address] [address] [place] [address], [address] [place] [address] 04/06/2006 00:00:00 [id number] autoEComm erce [address] [facility] [address],[place] [address] [place] [address] 07/20/2005 00:00:00 [id number],[place] [address] [place] [address] 08/09/2005 00:00:00 [id number] autoEComm erce [address] [facility] [address],[place] [address] [place] [address] 08/24/2005 00:00:00 [id number] autoEComm erce [address] [facility],[place] [address] [place] [address] 07/04/2006 00:00:00 [id number] autoEComm erce [address] [facility] [address],[place] [address] [place] [address] 07/11/2006 00:00:00 [id number] autoEComm erce [address] [facility],[place] [address] [place] [address] 09/18/2006 00:00:00 [id number] autoEComm erce 36[address] [facility],[place] [address] [place] [address] 12/17/2006 00:00:00 [id number] autoEComm erce [address] [facility],[place] [address] [place] [address] 12/24/2006 00:00:00 [id number] autoEComm erce 36[address] [facility],[place] [address] [place] [address] 03/20/2007 00:00:00 [id number] autoEComm erce [address] [facility],[place] [address] [place] [address] 06/14/2007 00:00:00 [id number] autoEComm erce 36[address] [facility],[place] [address] [place] [address] 07/04/2007 00:00:00 [id number] autoEComm erce [address] [facility],[place] [address] [place] [address] 01/09/2008 00:00:00 [id number] autoEComm erce [address] [facility] [address],[place] [address] [place] [address] 05/29/2008 00:00:00 [id number] autoEComm erce [address],[place] [address] [place] [address] 06/18/2008 00:00:00 [id number] auto[employer]Comm erce [address],[place] [address] [place] [address] 09/24/2008 00:00:00 [id number] autoEComm erce [address],[place] [address] [place] [address] 10/05/2008 00:00:00 [id number] autoEComm erce [address],[place] [address] [place] [address] 11/26/2008 00:00:00 [id number] autoEComm erce [address] [facility] [address],[place] [address] [place] [address] 01/13/2009 00:00:00 [id number] autoEComm erce [address] [facility] [address],[place] [address] [place] [address] 05/13/2009 00:00:00 [id number] autoEComm erce 3640 [facility],[place] [address] [place] [address] 06/16/2009 00:00:00 [id number] autoEComm erce [address] [facility] [address],[place] [address] [place] [address] 07/26/2009 00:00:00 [id number] autoEComm erce [address] [facility] [address],[place] [address] [place] [address] 09/17/2009 00:00:00 [id number] autoEComm erce [address] [facility] [address],[place] [address] [place] [address] 01/05/2010 00:00:00 [id number] autoEComm erce [address],[place] [address] [place] [address] 01/14/2010 00:00:00 [id number] autoEComm erce 36[address] [facility],[place] [address] [place] [address] 02/17/2010 00:00:00 [id number] autoEComm erce [address],[place] [address] [place] [address] 06/29/2010 00:00:00 [id number] autoEComm erce [address],[place] [address] [place] [address] 07/27/2010 00:00:00 [id number] autoEComm erce [address],[place] [address] [place] [address] 12/01/2010 00:00:00 [id number] autoEComm erce [address],[place] [address] [place] [address] 12/19/2010 00:00:00 [id number] autoEComm erce [address] [facility] [address],[place] [address] [place] [address] 01/11/2011 00:00:00 [id number] autoEComm erce [address] [facility] [address],[place] [address] [place] [address] 01/18/2011 00:00:00 [id number] autoEComm erce [address] [address] [place] [address] 01/24/2011 00:00:00 [id number] autoEComm erce [address] [facility] [address],[place] [address] [place] [address] 02/27/2011 00:00:00 [id number] autoEComm erce 3640 [facility],[place] [address] [place] [address] 07/19/2011 00:00:00 [id number] autoEComm erce [address] [facility] [address],[place] [address] [place] [address] 08/14/2011 00:00:00 [id number] autoEComm erce [address],[place] [address] [place] [address] 08/18/2011 00:00:00 [id number] autoEComm erce [address] [facility] [address],[place] [address] [place] [address] 10/24/2011 00:00:00 [id number] autoEComm erce [address],[place] [address] [place] [address] 11/02/2011 00:00:00 [id number] autoEComm erce [address],[place] [address] [place] [address] 02/19/2012 00:00:00 [id number] autoEComm erce [address],[place] [address] [place] [address] 03/06/2012 00:00:00 [id number] autoEComm erce [address],[place] [address] [place] [address] 06/05/2012 00:00:00 [id number] autoEComm erce [address],[place] [address] [place] [address] 06/10/2012 00:00:00 [id number] autoEComm erce [address],[place] [address] [place] [address] 06/28/2012 00:00:00 [id number] autoEComm erce [address],[place] [address] [place] [address] 09/24/2012 00:00:00 [id number] autoEComm erce [address],[place] [address] [place] [address] 10/25/2012 00:00:00 [id number] autoEComm erce [address],[place] [address] [place] [address] 01/10/2013 00:00:00 [id number] autoEComm erce [address],[place] [address] [place] [address] 01/24/2013 00:00:00 [id number] autoEComm erce [address],[place] [address] [place] [address] 2013 00:00:00 [id number] autoEComm erce [address],[place] [address] [place] [address] 06/20/2013 00:00:00 [id number] ALEX Le Main Office [address] [place] [address] 10/14/2013 14:06:23 10/14/2013 14:56:05 Infestation by Sarcoptes scabiei elle hominis [id number] call if does not improve after second treatment in a week [id number] Idalmis nicolas MD Main Office [address] [place] [address] 10/16/2013 13:38:05 10/16/2013 14:08:14 Asthma 463474657 well cotnrolled continue meds Bipolar I disorder 268898241 on meds and in counslei Disorder of coccyx 53527705 healing, hx of a fall Infestatio n by Sarcoptes scabiei elle hominis [id number] did tx and laundry, pt is crying over having scabies, reasoned with her aobut a self limited event, she calmed down by the time she left and has her therapist for supprt [id number] Idalmis nicolas MD Main Office [address] [place] [address] 10/22/2013 10:56:55 10/22/2013 11:43:54 Eruption 160065027 severe allergic reaction to elimite, pt to finish medrol dose pack, use benadryl at night adn try motrin for the pain Bipolar I disorder 890937549 on meds and in counsleing , pt is seeing ehr therapist today,she is coping better than the other night when she went to the ER nad spoke tot 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 Infestatio n by Sarcoptes scabiei elle hominis [id number] pt treated herself with elimite 2 tiems a week apart, she has a reaction to the elimite. she is on the last 2 days of the medrol dose pack and doing well, in the past she had had joe with prednisone but doing better this time. [id number] Idalmis nicolas MD Main Office 3640 [facility] [address] [facility] [place] [place] [address] 12/03/2013 08:44:24 12/03/2013 09:35:46 Bipolar I disorder 651055647 pt is feeling very depressed, states she [...] not want to complicate anything today Eruption 220117514 very faint, pt is very nervous about [...] days to help if possible drug related. [id number] ALEX Maya Main Office [address] [address] 12/10/2013 16:23:48 12/10/2013 16:55:47 Needs influenza immunization 279412435 Bipolar I disorder 359485837 Patient hadher meds changed on Sunday by her prescriber and has seen her therapist since last visit 12/03. She does not feel SI/HI, mood is better. Eruption [id number] Saw shona m on Sunday who prescribed cream for her rash, it is improving and pt feels better. [id number] Idalmis nicolas MD Main Office [address] [place] [address] 06/10/2014 15:24:10 06/10/2014 16:08:41 Bipolar I disorder 610927434 on meds and feels they are helping. is working with therapist on maybe volunteeri ng. Asthma 609174325 a bit of a flare, was put on steroids last month, continue meds. [id number] Idalmis nicolas MD Main Office [address] [place] [address] 10/16/2014 10:41:58 10/16/2014 11:34:30 Bipolar I disorder 888498114 on meds and feels they are helping. is working with therapist on maybe volunteeri ng. Anxiety 14289765 Asthma 154603664 asthma is controlled . Backache 639041397 Needs infl uenza immunization 807223041 Eruption 849910884 looks l brigid sun reaction, use otc hydrocorti sone and lotion [id number] Idalmis nicolas MD Main Office 3640 [facility] [address] [place] [address] 02/15/2015 10:56:10 02/15/2015 11:53:33 Adult health examination 162516051 Z00.00 pap next year, will add more exercise. Bipolar I disorder 74524 6008 F31.9 on meds and feels they are helping. is working with therapist and is volunteeri . Administra tion of pneumococcal vaccine 29633226 Z23 Asthma 949679130 J45.90 9 asthma is controlled . will get pneumovax today, never had [id number] Josee Casillas MD Main Office [address] [place] [address] [place] [address] 07/09/2015 09:56:30 07/09/2015 10:35:29 Pain in throat 917256348 R07.0 rapid strep is negative. Viral infection. Advised NSAIDs or tylenol, fluids and rest. [id number] Idalmis nicolas MD Main Office [address] [place] [address] [place] [address] 08/16/2015 14:51:18 08/16/2015 15:18:13 Asthma 141719606 J45.909 asthma is controlled Bipolar I disorder 45026 6008 F31.9 just finished partial hospitaliz ation, continue meds nad therapy Sciatica 24918529 M54.31 into right calf, positive straight leg raise, pt to see PT Low back pain 539212711 M54.5 PT referral, flexeril for night if spasms [id number] Idalmis nicolas MD Main Office [address] [place] [address] [place] [address] 09/09/2015 09:14:35 09/09/2015 10:18:31 Impacted cerumen 28548794 H61.23 soaked and lavaged without problems Pain in lower limb 94137 006 M79.604 spasm, pt to try soma and exercise and stretch [id number] Estrellita Pitt PA-C Main Office [address] [place] [address] [place] [address] 09/24/2015 13:53:33 09/24/2015 15:00:06 Infection of toe 147488881 L08.9 Start Abx as directed. Dressing changes daily , apply topical Abx as well. Laceration of toe 971361 004 S91.119A Remove sutures as scheduled next week. [id number] Estrellita Pitt PA-C Main Office [address] [place] [address] [place] [address] 09/29/2015 08:38:23 09/29/2015 09:42:03 Infection of toe 205041523 L08.9 Switch from Keflex to Bactrim DS BID for 10 days. Wound culture taken. Recheck in 3-4 days and remove sutures. [id number] Estrellita Pitt PA-C Main Office [address] [place] [address] [place] [address] 10/01/2015 08:45:49 10/01/2015 09:23:21 Laceration of toe 849463649 S91.119A 3 sutures removed w/o significan t discomfort . Pt. is advised to keep wound covered until full closure and scab comes off. Infection of toe 1176219 06 L08.9 Continue Bactrim DS as directed. Check on wound culture results. F/u prn. [id number] Idalmis nicolas MD Main Office [address] [place] [address] [place] [address] 10/21/2015 12:42:29 10/21/2015 13:28:14 Slurred speech 376550222 R47.81 I viewed her video on her phone, unclear, she denies any substances , will get US and Ct to rule out any CVA/bleed but very unlikely, if it recures pt was told to go to ER, Headache 23085979 R51 mild, only a day or 2, not there with slurred speecha dn very mild [id number] Idalmis nicolas MD Main Office [address] [place] [address] [place] [address] 11/25/2015 10:41:59 11/25/2015 11:44:21 Slurred speech 853267954 R47.[address] of head and carotid US Influenza vaccine needed 3515531719 106 Z23 Asthma 658129075 J45.90 9 asthma is controlled .she was followed by Eddie Haywood but she just retired, was on Brevo inhaler but stopped it. Is on singulair and proair prn. Bipolar I disorder 14336 6008 F31.9 is on meds, thinks she gained weight due to stress eating. continue meds [id number] Estrellita Pitt PA-C Main Office [address] [address] 12/10/2015 13:49:46 12/10/2015 14:57:55 Candidiasis of mouth 08979793 B37.0 [id number] Idalmis nicolas MD Main Office [address] [address] 03/29/2016 15:00:02 03/29/2016 15:46:19 Asthma 363834553 J45.909 asthma is controlled . continue meds Bipolar I disorder 73386 6008 F31.9 is on meds, mood is stable, volunteeri ng which is good for her, just out of partial hospitaliz ation [id number] Idalmis nicolas MD Main Office [address] [address] 07/06/2016 14:52:06 07/06/2016 15:43:01 Vitamin D deficiency 59476372 E55.9 take weekly med Bipolar I disorder 58772 6008 F31.9 is on meds, mood is stable, volunteeri ng which is good for her, just out of partial hospitaliz ation [id number] Idalmis nicolas MD Main Office [address] [address] 07/24/2016 14:52:50 07/24/2016 15:34:41 Adult health examination 817543580 Z00.00 is exercising a lot and feels well, disappoint ed no weight loss but feels better. Change in skin lesion 39 3300434 L98.9 left arm, we will make appt with DR Tobin Asthma 587960243 J45.90 9 asthma is controlled . continue meds Bipolar I disorder 18238 6008 F31.9 is on meds, mood is stable, volunteeri ng which is good for her, in therapy and doing a voluntary day program [id number] Idalmis nicolas MD Main Office [address] [place] [address] [place] [address] 10/30/2016 09:38:36 10/30/2016 10:12:18 Needs influenza immunization 537475497 Z23 Hypothyroidism 92237512 E03.9 pt is on meds and takes them regularly, due for recheck of level Asthma 544853463 J45.90 9 asthma is controlled . continue meds Bipolar I disorder 51795 6008 F31.9 is taking meds regularly, med provider will be changing and pt is due for a level and she will call and get an order for a level and who her next med provider will be [id number] dIalmis nicolas MD Main Office [address] [place] [address] [place] [address] 11/23/2016 12:49:42 11/23/2016 13:32:00 Dysfunctional uterine bleeding 67733399 N93.8 see hx, due for pap but will refer to chief construction inspector due to DUB, may need treatment with provera, pt with depression should tell chief construction inspector provider this, Backache 805349932 M54.9 use motrin as needed Asthma 478340201 J45.90 9 asthma is controlled . Bipolar I disorder 45865 6008 F31.9 doing better, is on meds, in counseling , gets a lot fo katey with ruby cramer at a therapeuti c riding stable and a homeless nursing home [id number] Idalmis nicolas MD Main Office [address] [place] [address] [place] [address] 03/26/2017 14:50:54 03/26/2017 15:39:28 Dysfunctional uterine bleeding 41896126 N93.8 neg w/u by chief construction inspector including USand biopsy, will ask for note, no further workup Asthma 858391003 J45.90 9 asthma is controlled . Bipolar I disorder 78558 6008 F31.9 doing very well [id number] Idalmis nicolas MD Main Office [address] [place] [address] [place] [address] 05/16/2017 10:22:08 05/16/2017 11:05:23 Hypothyroidism 87974296 E03.9 off meds for 2 weeks, restart and check level in 2 months Hyperhidrosis 736072741 R61 wrote down instructio ns for pt to take 3 days in a row, then change to 2 times a week and use regular deodorant too Asthma 109503702 J45.90 9 asthma is controlled . Bipolar I disorder 78632 6008 F31.9 doing very well [id number] ALEX Maya Main Office 3640 [facility] [address] [place] [address] 06/01/2017 15:02:22 06/01/2017 15:37:39 Hypothyroidism 96463544 E03.9 Last TSH 6.65, will increase levothyrox ine to 37.5mcg daily. new rx providd. she has lab orders and will have them checked in 4-6 weeks. Contusion of forearm 398 17655 S50.11XA small contusion, improving. Bipolar I disorder 07155 6008 F31.9 Recent partial hospitaliz ation x 2 weeks, discharged today, is feeling better and looking forward to her [place] vacation starting on sunday. [id number] ALEX Maya Main Office [address] [place] [address] 07/27/2017 13:51:39 07/27/2017 14:17:38 Horse bite wound 784014376 W55.11XA Healing well, currently on clinda based on culture results. she is taking a probiotic, eating yogurt, instructed to eat 20 mins prior to abx. Call or return for any concerns or worsening. Open wound of abdominal wall 851823093 S31.100A [id number] Josee Casillas MD Main Office [address] [place] [address] [place] [address] 12/04/2017 11:06:41 12/04/2017 11:40:34 Needs influenza immunization 320336069 Z23 [id number] Izaiah Prajapati MD Main Office 3640 [facility] [address] [place] [address] 12/14/2017 15:10:05 12/14/2017 16:03:05 Seborrheic dermatitis of scalp 442246076 L21.0 Seborrheic dermatitis 50 923576 L21.9 Will cover initially for both fungal and bacterial etiologies with low potency steroid for inflammati on. Less likely psoriasis but if persistent /worse will need derm referral. Impetigo 97621547 L01.00 [id number] Idalmis nicolas MD Main Office 3640 [facility] [address] [place] [address] 04/03/2018 13:53:17 04/03/2018 14:54:27 Asthma 957304069 J45.909 Refilled pro air to use prn Acute otitis media 23347 03 H66.92 Advise to use otc pain [...] any dizziness or chest discomfort . Eruption 852086768 R21 Does not appear to be shingles, infection or coxsackie virus at this time. Will use desonide bid (has this at home). Call if rash not improving. Likely contact dermatitis vs eczema. 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 Medication monitoring 39 0966203 Z51.81 needs EKG due to meds for bipolar Impacted c erumen of bilateral ears 0638655797 690623 H61.23 soak and lavage today . canals clear upon discharge Asthma 166516246 J45.90 9 asthma is controlled . 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 Encouraged less carbs and increased exercise. Labs are normal, will check fasting BS with next labs Hypothyroidism 95798585 E03.9 TSh trending up , now close to 10. Will gradually increase med alternatin g 1 with 1.5 of levothyrox ine daily. Check TSH 6 weeks Bipolar I disorder 27318 6008 F31.9 pt doing better continue meds listed and will call therapist if not doing well. Follows with current mental health providers. [id number] Izaiah Prajapati MD Main Office [address] [place] [address] 12/20/2018 14:53:53 12/20/2018 15:58:11 Lumbar radiculopathy 785652415 M54.16 start medrol today and PT alan next week, TC#3 sparingly for pain, supplement with otc meds. Pt aware no refills on pain med. Rest but change position and walk frequently . Stretching at home. Call or ED if acutely worse or any bowel/blad shona sx. Followup in a few weeks. [id number] Izaiah Prajapati MD Main Office 3640 [facility] [address] [place] [address] 01/10/2019 13:55:04 01/10/2019 14:39:13 Low back pain 591367017 M54.5 Continue PT for another 4-6 weeks, continue home exercises Acute back pain with sciatica 583940495 M54.42 use mobic for a week then prn if still having pain. If not better in 4-6 weeks, consider imaging. [id number] Idalmis nicolas MD Main Office [address] [place] [address] 01/24/2019 10:34:24 01/24/2019 10:53:58 [id number] Idalmis nicolas MD Main Office [address] [place] [address] 08/04/2019 13:56:48 08/04/2019 15:29:46 Impacted cerumen 88546440 H61.23 removed today, right canal still red, distally has some ? soft wax 7-8 oclock, ? cholesteat germania will recheck in 2 weeks, no water in right ear. Call if any pain or changes in ear or hearing. [id number] Idalmis nicolas MD Main Office [address] [place] [address] 08/18/2019 13:46:56 08/18/2019 14:21:42 Serous otitis media 76123069 H65.91 steam, flonase, keep hydrated, ENT if not better. Cannot take oral steroids, makes her manic. 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 but sees them, more positive than in the past Screening for malignant neoplasm of breast 142290138 Z12.39 pt to set up first mammogram Bipolar I disorder 22895 6008 F31.9 doing very well, will get orer from psychiatry for a lithium level Hypothyroidism 16069577 E03.9 get thyroid test Eczema 02544763 L30.9 eyebrows, ears tx as below Psoriasis of scalp 06039 8008 L40.9 Screening for malignant neoplasm of cervix 974664675 Z12.4 pt to make appt [id number] Idalmis nicolas MD [facility] 3640 [facility] [address] [place] [address] 10/02/2019 06:24:57 10/06/2019 09:11:51 Hypothyroidism 29562575 E03.9 elevated TSH ordered by psych, will increase dose and recheck in 6 weeks. Bipolar I disorder 10630 6008 F31.9 doing well, labs by psychiatry , will talk with pharmacist how to take the thyroid and lithium levels so they do not interfere with each other Mild inter mittent asthma 046346509 J45.20 stable continue meds [id number] Idalmis nicolas MD [place] 0[address] [facility] [address] [place] [address] 10/16/2019 08:37:38 10/16/2019 11:49:29 Hypothyroidism 24698260 E03.9 thyroid dose was increased recently but now pt does not feel well. plan is to have pt recheck thyroid level today, she is taking it midday a few hours after lithium,sh e had asked the pharmacist for suggestion , so this is different than how she took it in the past Bipolar I disorder 10280 6008 F31.9 feels very emotional Not grounded . is working with therapist, no suicidal plans but has some thoughts, feels safe and promises she can keep herself safe, work with counselor [id number] Idalmis nicolas MD [address] [facility] [place] [address] 11/28/2019 12:54:48 12/02/2019 10:41:25 Seborrheic dermatitis of scalp 939923487 L21.0 Use Tgel hampoo a few time a week and then put lotion on affected areas bid for a week, then use prn only, call if not helping and would do dermatolog y referral [id number] Idalmis nicolas MD Main Office 36[address] [facility] [address] [place] [address] 03/18/2020 15:02:30 03/18/2020 16:15:08 Eczema 64062326 L30.9 on MTX, improving, pt knows to take extra precaution s against Covid infectin Anxiety state 984604408 F41.1 on meds, sees counselor hard 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 which 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 Bipolar I disorder 47994 6008 F31.9 a bit of a struggle but doing ok, more resources, Mild inter mittent asthma 700499679 J45.20 stable continue meds Hypothyroidism 29025178 E03.9 continue meds [id number] Idalmis nicolas MD Main Office [address] [address] 07/14/2020 13:22:37 07/14/2020 13:57:55 Eczema 58667506 L30.9 on MTX, improving, pt knows to take extra precaution s against Covid infection Mild inter mittent asthma 004943331 J45.20 stable continue meds Hypothyroidism 79570363 E03.9 continue meds Macromastia 753655715 N6 2 pain in shoulders and upper back and rashes under breasts considerin g breast reduction, will refer to plastic surgeon Screening for malignant neoplasm of breast 786143174 Z12.39 pt to set up first mammogram Bipolar I disorder 48248 6008 F31.9 a bit of a struggle but doing ok, more resources, [id number] Reyes Fine MD Main Office 3640 [facility] [address] [place] [address] 08/27/2020 10:24:55 08/27/2020 12:15:05 Impacted cerumen 93039454 H61.23 Cerumen removed in Right.Left sided aborted after removal of some wax in the exterior ear as it looked like patient caused trauma to her ear drum from q-tip use. Mild inter mittent asthma 985549600 J45.20 Notes under controll with inhalers, needed refills. Acute otitis media 94942 03 H66.92 After wax removal patient notes improvemen t in hearing denies vomiting, dizziness, or facial weakness, fever. Will provide ear drops advised injured ear drums can heal on its own thus will f/u in 2 weeks to reassess. Will refer to ent. Perforatio n of tympanic membrane 77872647 H72.92 [id number] Idalmis nicolas MD Main Office [address] [address] 12/22/2020 10:51:31 12/22/2020 11:39:16 Adult health examination 224765078 Z00.00 doing pretty well, keeping active, in counseling weekly and meds by psychiatry , anxiety due to upcoming skin lesion resection. 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 Hypothyroidism 75307711 E03.9 continue meds check labs Mild inter mittent asthma 887020360 J45.20 stable continue meds Needs infl uenza immunization 918166665 Z23 Lesion of skin of face 1814584633 [address] Tobin with malignancy getting removed 01/03 nervous [id number] Idalmis nicolas MD Main Office [address] [address] 12/01/2021 09:39:44 12/01/2021 10:21:17 Hypothyroidism 21236247 E03.9 check level and continue med Needs infl uenza immunization 326557428 Z23 Bipolar I disorder 31275 6008 F31.9 a bit of a struggle but doing ok, in counseling and sees psychiatry and 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 She had the visit with Dr Ny and contracts for safety, has crisis numbers, family and therapist support. Does not feel the need for ED evaluation . Dr Ny and patient comforatab le with the plan. Reschedule AWV later. [id number] Idalmis nicolas MD Main Office 3640 [facility] [address] [place] [address] 04/05/2022 14:54:10 04/05/2022 15:57:29 Adult health examination 737960223 Z00.00 Pt is in good general health with mental health stable and improved. 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 Social and family history reviewed. Immunizati ons reviewed, advised annual flu shot which she had. She is not up to date on dental and eye providers, will make appt. 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 Hypothyroidism 27705287 E03.9 recent tsh normal Mild inter mittent asthma 490524846 J45.20 renew med, uses prn Bipolar I disorder 76614 6008 F31.9 pt doing better continue meds listed and will call therapist if not doing well. Follows with current mental health providers. 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 0 pt gets meds for bipolar from Dr Porfirio Hearn in [facility] heartrate 107, EKG with NSR, normal QT interval. Hypothyroidism 51954229 E03.9 continue med [id number] JARVIS NGUYEN MD Main Office 3640 [facility] [address] [place] [address] 06/16/2022 12:51:46 06/16/2022 13:43:42 Laceration of finger 103304205 S61.210A - pt had 8 sutures placed on right second digit after laceration with veggie cutter- 2 sutures were removed today as it was noted as the sutures were removed patient skin had not completely healed, will remove rest 12-14 day usman- RTC in 2 days Transition of care from emergency department to self-care [id number] 97853 Z76.89 - presented to urgent care on 06/06 after laceration of right second and third digits [id number] JARVIS NGUYEN MD Main Office 3720 [facility] [address] [place] [place] [address] 06/19/2022 09:20:48 06/19/2022 10:05:55 Laceration of finger 392697895 S61.210D - pt had 8 sutures placed on right second digit after laceration with veggie cutter- 2 sutures were removed on 06/16- other 6 suture were removed today on 06/19- pt does have one small area were the laceration is still prominent therefore wound precaution s were given- RTC if patient note warm, tenderness , redness or discharge [id number] Idalmis nicolas MD Main Office 0021 [facility] [address] [place] [place] [address] 06/30/2022 15:53:21 06/30/2022 16:22:25 Injury of finger 59177984 S69.91XD see hpi and PE. 3rd finger cauterized in UC still with balck hard cover and 2nd healing after sutures. will refer to plastic surgery to address the 3rd finger, asked for appt early next week. 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- medication s filled by [facility] Bipolar I disorder 07424 6008 F31.9 - follows with psychiatry every 3 months, as a new provider started seeing one year ago- currently on quetiapine 800mg QD and lithium 600mg BID- medication s filled by [facility] Mild inter mittent asthma 813452589 J45.20 - pt takes albuterol pump has needed (will go months without using it)- take singular 10mg daily Injury of finger 3255487 8 S69.91XD - second digit all sutures removed, wound still has dried blood, healing very slow- third finger still black with very little improvemen t since 06/06- pt was referred to plastics> [facility] cannot see patient until after December, called to push date forward, request refused> currently looking for other plastic surgeons in the area- ED precaution s given- RTC in one month for continued follow-up Psoriasis 1388792 L40.9 - currently on humira injections which provides relief [id number] JARVIS NGUYEN MD Main Office [address] [facility] [place] [address] 07/14/2022 13:23:31 07/14/2022 14:05:46 Injury of finger 50370349 S69.91XD - improving- second digit all sutures removed, wound still has dried blood, healing very slow- third finger cautrized wound is healing, scabbing is regressing - pt was referred to plastics> [facility] cannot see patient until after December, called [...] for healing.- wound care referral also provided [id number] JARVIS NGUYEN MD Main Office [address] [facility] [place] [address] 08/17/2022 11:20:11 08/17/2022 12:07:00 Injury of finger 57310443 S69.91XD - improving- second digit: at today visit noted that piece of skin that was originally sutured is no longer in place. The skin was removed. Well-heale d tissue noted underneath .- third finger which was cauterized is now healed- pt was referred to plastics> [facility] cannot see patient until after December, called [...] to ensure second digit has fully healed [id number] Josee Casillas MD Main Office [address] [address] 08/29/2022 12:52:30 08/29/2022 13:46:55 Impacted cerumen of bilateral ears 6435994166 663966 H61.23 Acute righ t otitis media 746047319 H66.91 [id number] JARVIS NGUYEN MD Main Office [address] [address] 09/28/2022 14:37:07 09/28/2022 15:09:58 Injury of finger 91901691 S69.91XD - now resolved, second and third digit have completely healed- pt was referred to plastics> [facility] cannot see patient until after December, called [...] 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 C) Vaccines:I nfluenza: not this yearTdAP: 06/06/2022Z felix: due at 34ZDY14: due at 75KOAX61: 02/15/2015 PCV20:PCV1 5:COVID: , 05/17/2020, 01/11/2021 , 12/07/2021 D) Routine blood work orderedE) Updated patient's history RTC in one year for annual exam or sooner if any acute complaints Fatigue 09876131 R53.83 Z00.00 Hyperlipidemia 44503049 E78.5 Z00.00 Hepatitis C screening 41 0700477 Z11.59 HIV screening 936547078 Z11.4 Anxiety state 702184430 F41.1 - NIA-7 score of 21- currently on lorazepam 1mg BID given by [facility] which she follows every 3 months- patient is not doing well, does need adjustment to her medication , [facility] aware> PT REFUSED MD TO CONTACT PERSCRIBER TO DISCUSS PATIENT CURRENT HEALTH> PT REFUSED ED EVALUATON> HAS AN INTAKE APPOITMENT ON April- counselclemencia garcia provided, 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- medication s filled by [facility] Bipolar I disorder 52037 6000 F31.9 - PHQ-9 score score of 25 [...] s given- RTC in 4 weeks Hypothyroidism 89759454 E03.9 - will check levels- c/w levothyrox ine 100mcg QD Mild inter mittent asthma 202734567 J45.20 - pt takes albuterol pump has needed (will go months without using it)- take singular 10mg daily Vitamin D deficiency 347 48683 E55.9 Irritable bowel syndrome with diarrhea 947356114 K58.0 - pt is currently taking dicyclomin e 10mg QID as needed Psoriasis 9957897 L40.9 - currently on humira injections which provides relief Tachycardia 2847410 R00. 0 - HR today was 120- EKG has a lot of artifact but sinus tachycardi a with HR of 109- pt was started on metoprolol succinate ER 25mg- most likely due to elevated anxiety Screening for malignant neoplasm of cervix 912475916 Z12.4 Body mass index 30+ - obesity 687578392 E66.9 Z68.31 - BMI of 31.5- Cut [...] minutes cumulative of moderate exercise erin ferro [id number] JARVIS NGUYEN MD Main Office 6240 [facility] [address] [facility] [place] [address] 04/26/2023 14:37:13 04/26/2023 15:09:02 Hepatitis C antibody detected 329878197 Z86.19 - ordered hepatic function panel- ordered confirmato ry testing testing by checking viral load and genotype- if positive will send to GI Acute kidney injury 1466 9001 N17.9 - pt advised to remain hydrated- continue to avoid NSAIDs- repeat blood work ordered [id number] JARVIS NGUYEN MD Main Office 26[address] [facility] [address] [facility] [place] [address] 05/17/2023 13:49:04 05/17/2023 14:29:35 Anxiety state 973518516 F41.1 - NIA-7 score of 17- currently on lorazepam 1mg BID given by [facility] which she follows every 3 months> pt advised not to take the medication with clonazepam 0.5mg- counsellin g provided, 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 0 - HR today was 109- EKG done on 04/12 has a lot of artifact but sinus tachycardi a with HR of 109- c/w metoprolol succinate ER 25mg- ordered US echo- pt referred to cardiology for holter monitor- [facility] will also be adjusting meds to help improve HR [id number] JARVIS NGUYEN MD Main Office 36[address] [facility] [address] [facility] [place] [address] 08/13/2023 14:37:29 08/13/2023 15:13:08 Tachycardia 9893075 R00.0 - now resolved- HR today was [...] will request note Vitamin D deficiency 347 70321 E55.9 - pt noted to have elevated level on 04/17/2023 -> 68- pt was advised to start back on 1000 IU to prevent levels from going too low> pt was advised this when informed of blood however she did not read message properly Psoriasis 1190974 L40.9 - currently on cyltezo injections which provides relief- pt does have an area at the back of left ear were the psoriasis is worse, pt provided with clobetasol cream and advised to moisturise [id number] JARVIS NGUYEN MD Main Office 3640 [facility] [address] [facility] [address] 12/21/2023 15:15:32 12/21/2023 16:02:18 Acute kidney injury 01051661 N17.9 - pt advised to remain hydrated- continue to avoid NSAIDs- repeat blood work ordered Anxiety state 825375130 F41.1 - NIA-7 score of 8- lorazepam as been stopped and switched to clonazepam - counsellin g provided, 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- medication s filled by psychiatri Bipolar I disorder 54095 4612 F31.9 - improved- PHQ-9 score score of 6 with elevated NIA-7 score 8- pt has completed day-progra m at [facility]> clonazepam 0.5mg as added to regimen- pt will be following with psychiatry over the next few month to optimize her meds as it could be the cause of the tachycardi a- currently on quetiapine 800mg QD and lithium 600mg BID- medication s filled by psychiatri Hypothyroidism 37669515 E03.9 - will check levels- c/w levothyrox ine 100mcg QD Mild inter mittent asthma 624170515 J45.20 - pt takes albuterol pump has needed (will go months without using it)- take singular 10mg daily Tachycardia 6419325 R00. 0 - now resolved- HR today [...] will request note Needs infl uenza immunization 594669001 Z23 19 YEARS AND OLDER ONLY Tremor 47015694 R25.1 - ordered vitamin b12 and folate- ordered MRI of the brain for further evaluation - pt psychiatri st started patient on propanolol ER 60mg Urinary incontinence 165 197233 R32 - pt has been following with urology, advised to given them a call for follow-up Numbness of hand 8123675 04 R20.0 - occurred after incident veggjose angel slicer- located on right hand on second and third digit- pt having neuropathi c pain and temperatur e sensitivit ies- referred to hand surgery for second option however feel that pain is from severed never endings and may permanent [id number] JARVIS NGUYEN MD Main Office 3640 [facility] [address] [place] [address] 01/01/2024 09:20:34 01/01/2024 09:55:35 Transition of care from emergency department to self-care 6135970691 39744 Z76.89 - presented to urgent care on 12/23 for cellulitis of lower extremity- reviewed notes Cellulitis 088270557 L03 .90 - well healing- no need for repeat antibiotic treatment at this time- wound culture grew Beta hemolytic Streptococ cus, group B which is susceptibl e to keflex- pt advised to keep area clean and dry- return precaution s were discussed [id number] JARVIS NGUYEN MD Main Office 3640 [facility] [address] [facility] [place] [address] 03/24/2024 14:33:30 03/24/2024 15:06:31 Acute kidney injury 19602175 N17.9 - creatine 1.1 and GFR of 58- pt advised to remain hydrated- continue to avoid NSAIDs- repeat blood work ordered Hypothyroidism 27623670 E03.9 - normal levels- will check levels- c/w levothyrox ine 100mcg QD Tachycardia 7980246 R00. 0 - now resolved- HR today [...] control with metoprolol at the time Tremor 51343448 R25.1 - normal vitamin b12- MRI of [...] with her psychiatri st Urinary incontinence 165 502407 R32 - pt has been following with urology, advised to given them a call for follow-up Numbness of hand 1359584 04 R20.0 - occurred after incident veggie slicer- located on right hand on second and third digit- pt having neuropathi c pain and temperatur e sensitivit ies- pt is currently following with hand surgery [id number] Josee Casillas MD Main Office [address] [facility] [address] [facility] [place] [address] 04/15/2024 13:36:44 04/15/2024 14:47:23 Impacted cerumen of bilateral ears 5056807291 611779 H61.23 Bilateral cerumen impaction , recurrent. Recommend to avoid using q-tip. Ears were irrigated with large amount of cerumen removed , but still with residual amount left behind. Recom. to use Debrox for 3-5 days. Recom ear irrigation every 6-8 m. [id number] JARVIS NGUYEN MD Main Office [address] [facility] [address] [facility] [place] [address] 06/30/2024 13:04:23 06/30/2024 14:03:35 Acute kidney injury 58387335 N17.9 - creatine 1.1 and GFR of 58- pt advised to remain hydrated- continue to avoid NSAIDs- repeat blood work ordered Hypothyroidism 20475654 E03.9 - normal levels- c/w levothyrox ine 100mcg QD Tachycardia 8576141 R00. 0 - elevated- HR today was [...] control with metoprolol at the time Tremor 36896024 R25.1 - normal vitamin b12- MRI of the brain of brain is normal- pt psychiatri st started patient on propanolol , pt unsure if she is actually taking this Urinary incontinence 165 863597 R32 - pt has been following with urology, advised to given them a call for follow-up Numbness of hand 2402097 04 R20.0 - occurred after incident veggie slicer- located on right hand on second and third digit- pt having neuropathi c pain and temperatur e sensitivit ies- pt is currently following with hand surgery> will be starting physical therapy to help with sensation Bipolar I disorder 38763 6791 F31.9 - worsening- PHQ-9 score score of 16 with elevated NIA-7 score 14- currently undergoing day-progra m at [facility]- will be switching off quetiapine to lithium- medication s filled by psychiatri - RTC in 3 weeks as patient should complete program by then and to check for improvemen t Irritable bowel syndrome with diarrhea [id number] K58.0 - pt is currently taking dicyclomin e 10mg QID as needed Mild inter mittent asthma [id number] J45.20 - pt takes albuterol pump has needed (will go months without using it)- take singular 10mg daily Hyperlipidemia 01223807 E78.5 Z00.00 - ASCVD score of 0.6%- [...] and veggies. General ex amination of patient 125172557 Z00.00 [id number] [facility] Patient was counseled on healthy diet, exercise and nutrition due to BMI of 30.5 B) ScreeningL ast Mammogram: start at age 49 stop at 73Date: 06/11/2024R esult: BIRADS-1Ne xt: 05/2025 Last Pap smear: start at age 21 to age 65Date: 12/27/2016 Results: HPV negative, no atypical cellsNext: DUE (pt advised to follow with chief construction inspector) Last Colonoscop y: start at age 45-75Date: Result: Next: not yet of age Last DEXA scan:Date: due at 65Result: ??? C) Vaccines:I nfluenza: 12/21/2023 TdAP: 06/06/2022Z felix: due at 77LDC86: due at 44SPFX10: 02/15/2015 PCV20:PCV1 5:COVID: , 05/17/2020, 01/11/2021 , 12/07/2021 D) Routine blood work orderedE) Updated patient's history RTC in one year for annual exam or sooner if any acute complaints Screening for malignant neoplasm of cervix 702981490 Z12.4 Screening for malignant neoplasm of colon 525251826 Z12.11 Obesity ca used by energy imbalance 732032092 E66.811 E66.09 Z68.30 24787036 - BMI of 30.5- Cut down on [...] minutes cumulative of moderate exercise erin ferro [id number] JARVIS NGUYEN MD Main Office [address] [facility] [address] [place] [address] 07/22/2024 11:20:45 07/22/2024 11:48:16 Bipolar I disorder [id number] F31.9 - stable and improved- PHQ-9 score score of 11 with elevated NIA-7 score 8- completed day program at [place]- will be switching off quetiapine to lithium> pt currently unsure of her medication list- [facility] SI/HI [id number] Izaiah Prajapati MD Main Office [address] [facility] [address] [place] [address] 09/16/2024 08:55:29 09/16/2024 10:06:43 Chest discomfort 917523844 R07.89 432096 Anxiety state 518006536 F41.1 see above Sinus tachycardia 197859 01 R00.0 3924 44 year old female [...] intake. Pt was reassured. Bipolar I disorder 65943 6008 F31.9 continue current treatment as per psych [id number] JARVIS NGUYEN MD Main Office [address] [facility] [address] [place] [address] 10/08/2024 10:58:56 10/08/2024 11:27:08 [id number] JARVIS NGUYEN MD Main Office [address] [facility] [address] [place] [address] 10/16/2024 13:58:41 10/16/2024 14:45:04 Bipolar I disorder 028461216 F31.9 - stable and improved- PHQ-9 score score of 2 with elevated NIA-7 score 10- completed day program at [place]- currently off quetiapine to lithium> pt currently unsure of her medication list- medication s filled by [facility]- no longer having SI/HI Post-disch arge follow-up [id number] Z09 828741 - reviewed discharge summary Generalized headache 162 642078 R51.9 113315 - not having headaches, ordered for diagnosis to cover testing- abnormalit ies noted in urine test from recent discharge- now that patient is off lithium re-ordered testing for further evaluation - to consider imaging after testing complete Wax in ear canal 9399818 02 H61.20 88896 - bilateral- underwent irrigation Pruritus of vagina 29075 003 N89.8 506728 - located in the peritoneum - ordered patient clotrimazo le-betamet hasone cream- she will follow with gynecology soon [id number] JARVIS NGUYEN MD Main Office [address] [facility] [address] [place] [address] 11/21/2024 14:42:11 11/21/2024 15:06:25 Bipolar I disorder 446091546 F31.9 - stable and improved- completed day program at [place]- currently off quetiapine to lithium> pt currently unsure of her medication list- medication s filled by [facility]- no longer having SI/HI Pruritus of vagina 65639 003 N89.8 051906 - located in the peritoneum - ordered patient clotrimazo le-betamet hasone cream- she will follow with gynecology soon Generalized headache 162 554757 R51.9 054076 - not having headaches, ordered for diagnosis to cover testing- abnormalit ies noted in urine test from recent discharge- now that patient is off lithium re-ordered testing for further evaluation - to consider imaging after testing complete Tachycardia 7431422 R00. 0 - elevated- HR today was [...] control with metoprolol at the time Hypothyroidism 35387069 E03.9 - normal levels- c/w levothyrox ine 100mcg QD Mild inter mittent asthma 381377690 J45.20 - pt takes albuterol pump has needed (will go months without using it)> does use for URI therefore refilled since patient is currently sick- take singular 10mg daily Irritable bowel syndrome with diarrhea 212784295 K58.0 - pt is currently taking dicyclomin e 10mg QID as needed Tinea corporis 17236892 B35.4 33397 - located on the left underarm Psoriasis 6041504 L40.9 - currently on cyltezo injections which provides relief- pt does have an area at the back of left ear were the psoriasis is worse, pt provided with clobetasol cream and advised to moisturise - provided with clobetasol to apply to areas were she has a rash- does follow with derm, next gladys 12/11/2024 Seborrheic dermatitis 50 778813 L21.9 26690 - located on the forehead- started patient on ketoconazo le shampoo [id number] Izaiah Prajapati MD Telehealt [facility] [address] [facility] [address] [facility] [place] [address] 01/12/2025 14:49:03 01/12/2025 16:09:31 Cellulitis of head 538671125 H60.12 89636037 Infected psoriatic plaque behind the L. ear. Recom oral antibiotic s and mupirocin cream. Pt is starting new psoriasis treatment per Dr. Quintana. Psoriasis 8938925 L40.9 94683 see above. Health Concerns Section Related Observation LastModified by Organization Detai ls LastModified Time None Recorded Concern Status LastModified by Organization Details LastModified Time None Recorded Advance Directives Directive N: Payers Insurance Date Sequence Insurance Name Policy Number Policy Scott Covered Member ID Scott Member ID Guarantor Name 01/12/2025 1 [place] [employer] Crystal Chapa [id number] Crystal Chapa 01/12/2025 2 [place] [facility] Crystal Chapa [id number] Crystal Chapa Notes Date Note Type Note Provider Name and Address Organization Details Recorded Time 5 text/html ROS as noted in the [...] lbs since July gladys. Estrellita Pitt PA-C [address] [address], [place], [address], [facility] 09/16/2024 13:07:46 5 text/html Hospitalization Contact RecordReported by PatientHospitalization Contact RecordFor follow up, [facility]sh[facility],admit date: (please enter in format 'mm/dd/yyyy') [...] to [facility] completed a 10 day program discharge to [...] 10/16/2024 at 2:15 pm. JARVIS NGUYEN MD [address], [address], [facility] 10/08/2024 11:27:05 5 text/html Hospitalization Contact RecordReported by PatientHospitalization Contact RecordFor follow up, patient reportshospital: [facility],admit date: (please enter in format 'mm/dd/yyyy') [...] to [facility] completed a 10 day program discharge to [...] an appoitment with gynecology. JARVIS NGUYEN MD [address] [address], [place], [address], [facility] 10/16/2024 14:40:09 5 text/html ROS as [...] also completed day program. JARVIS NGUYEN MD [address], [address], [facility] 11/21/2024 17:20:30 5 text/html ROS as noted in the HPI 44 year old female with h/o psoriasis, currently off old treatment and did not start new therapy yet. Reports rash behind the ears is getting worse. Behind L. year as it looks like from images sent, there is erythema, skin cracked open and yellow discharge. Pt denies pain, fever, chills. Behind the R. ear, no erythema or discharge. Estrellita Pitt PA-C [address] [address], [place], [address], [facility] 01/12/2025 15:26:22 OBGyn Episode No OBEpisode recorded.
--- OUTSIDE RECORDS SUMMARY | 2025-01-14 17:11 | XMS_ITS | Continuity of Care Document ---
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 201209/29/2013 IMPRESSI ON: SKIN OF VULVA WITH 6 REDDISH LESIONS SEEMS LIKE VASCULAR LESIONS BUT WILL HAVE DERM CHECK OUT; RECORDED 09/25/19 13 4:19PM BY NYDIA CHRISTIANSEN MA, ANNOTATI ON/ADDEN DUM Not Available [facility] 4 05:37:59 Influenz a vaccine needed [id number] 06 Completed 201209/02/2013 RECORDED 10/26/19 13 2:51PM BY JUNAID BOTELLO, OFFICE VISIT Not Available [facility] 4 14:53:46 Influenz a vaccine needed [id number] 06 Completed 201209/29/2013 RECORDED 10/26/19 13 2:51PM BY JUNAID BOTELLO, OFFICE VISIT Not Available [facility] 4 05:37:58 Diarrhea 56835343 Completed 201209/02/2013 IMPRESSI ON: NEW PROBLEM, PT WILL SEE DR MARION FOR EVAL,; RECORDED 01/11/20 13 10:05AM BY BRIAN BENOIT MA, ANNOTATI ON/ADDEN DUM Not Available [facility] 4 14:53:45 Eruption [id number] Completed 201209/02/2013 IMPRESSI ON: FROM PICKING HER HEAD WITH NERVES, NO INFECTIO N, TREAT WITH CREAM; RECORDED 01/11/20 13 10:05AM BY BRIAN BENOIT MA, ANNOTATI ON/ADDEN DUM FRIEDA French, [facility] 7 15:02:11 Diarrhea [id number] Completed 201209/29/2013 IMPRESSI ON: NEW PROBLEM, PT WILL SEE DR MARION FOR EVAL,; RECORDED 01/11/20 13 10:05AM BY BRIAN BENOIT MA ANNOTATI ON/ADDEN DUM Not Available [facility] 4 05:37:58 Eruption [id number] Completed 201209/29/2013 IMPRESSI ON: FROM PICKING HER HEAD WITH NERVES, NO INFECTIO N, TREAT WITH CREAM; RECORDED 01/11/20 13 10:05AM BY BRIAN BENOIT MA ANNOTATI ON/ADDEN DUM FRIEDA French, [facility] 7 15:02:11 Anemia 579904278 Completed 201303/30/2016 RECORDED 06/21/19 14 2:38PM BY BRIAN BENOIT MA, OFFICE VISIT [place] prajapati [facility] 7 16:11:49 Alopecia 31346929 Completed 201303/30/2016 RECORDED 06/21/19 14 2:38PM BY BRIAN BENOIT MA, OFFICE VISIT [place] prajapati [facility] 7 16:12:02 Anxiety state 169036139 Active 2013 FRIEDA Goyal, [facility] 8 15:03:46 Asthma 813173174 Completed 201310/02/2019 [place] [facility] 10:11[facility]13 Bipolar I disorder 777592175 Active 2013 FRIEDA Goyal, [facility] 8 15:03:43 Disorder of coccyx 70084060 Completed 201303/30/2016 IMPRESSI ON: PAIN FORM FALL NO XRAY NEEDED, TIME AND MOTRIN; RECORDED 06/21/19 14 2:38PM BY BRIAN BENOIT MA, OFFICE VISIT [place] prajapati [facility] 7 16:12:05 History of depressi on 751573760 Completed 201309/02/2013 RECORDED 06/21/19 14 2:38PM BY BRIAN BENOIT MA, MELITON ON/ADDEN DUM Not Available [facility] 4 14:53:45 Adult health examinat ion Completed 201309/02/2013 IMPRESSI ON: NOT DUE FOR A PAP, BREAST EXAM TODAY, INCREASE EXERCISE ; RECORDED 06/21/19 14 2:37PM BY BRIAN BENOIT MA ANNOTMANAN ON/ADDEN DUM Not Available [facility] 4 14:53:46 Pain of hip region 42286683 Completed 201303/30/2016 IMPRESSI ON: FELL 10 DAYS AGO, PAIN IN BILATERA L HIPS, WILL GET XRAY TO RULE OUT FRACTURE THOUGH UNLIKELY MOTRINA ND REST; RECORDED 06/21/19 14 2:38PM BY BRIAN BENOIT MA, OFFICE VISIT [place] prajapati [facility] 7 16:11:59 Impacted cerumen 50711456 Completed 201303/29/2016 IMPRESSI ON: EAR LAVAGE PERFORME D, CERUMEN REMOVED; RECORDED 06/21/19 14 4:08PM BY AMARILIS PATEL, OFFICE VISIT FRIEDA French, [facility] 7 15:01:56 Insomnia 961553616 Completed 201303/30/2016 IMPRESSI ON: BETTER MEDS HELPING; RECORDED 06/21/19 14 2:38PM BY BRIAN BENOIT MA, OFFICE VISIT [place] prajapati [facility] 7 16:11:37 Low back pain 384799079 Completed 201309/02/2013 IMPRESSI ON: FOR MONTHS, HX OF A FEW FALLS, PT TO SET UP PT ORDER TO PT TODAY; RECORDED 06/21/19 14 2:38PM BY BRIAN BENOIT MA, ANNOTATI ON/ADDEN DUM FRIEDA French [facility] 7 15:02:14 Single major depressi ve episode Completed 201311/23/2016 IMPRESSI ON: ON MEDS BUT DEPRESSI ON IS ACTIVE, CONTINUE MEDS AND PSYCHIAT RY AND COUNSELI NG VISITS; RECORDED 06/21/19 14 2:38PM BY BRIAN BENOIT MA, OFFICE VISIT [place] prajapati [facility] 7 13:39:20 Neoplasm of uncertai n behavior of skin 85657793 Completed 201303/30/2016 IMPRESSI ON: NODULE IN EAR WITH TELENGIE CTASIA CONCERNI NG FOR MALIGNAN CY. ENT TO FURTHER ASSESS; RECORDED 06/21/19 14 4:06PM BY AMARILIS PATEL, OFFICE VISIT [place] prajapati [facility] 7 16:12:10 Patient status finding [id number] Completed 201303/29/2016 RECORDED 06/21/19 14 2:38PM BY BRIAN BENOIT MA, OFFICE VISIT FRIEDA French [facility] 7 15:01:47 Otitis media 20397199 Completed 201303/29/2016 IMPRESSI ON: UNCLEAR IF REALLY INFECTED . SHE WILL DO FLONASE AND MUCINEX- D FOR 2 DAYS. IF NOT BETTER, SHE WILL START ABX; RECORDED 06/21/19 14 4:08PM BY AMARILIS PATEL, OFFICE VISIT FRIEDA French [facility] 7 15:02:45 History of psychiat chiki disorder 133919995 Completed 201303/30/2016 RECORDED 06/21/19 14 2:38PM BY BRIAN BENOIT MA, OFFICE VISIT [place] prajapati [facility] 7 16:11:26 Acute upper respirat ory infectio n 09970309 Completed 201303/29/2016 RECORDED 06/21/19 14 3:30PM BY AMARILIS PATEL, OFFICE VISIT FRIEDA French, [facility] 7 15:02:38 History of depressi on 489561737 Completed 201309/29/2013 RECORDED 06/21/19 14 2:38PM BY BRIAN BENOIT MA, ANNOTATI ON/ADDEN DUM Not Available [facility] 4 05:37:58 Adult health examinat ion Completed 201309/29/2013 IMPRESSI ON: NOT DUE FOR A PAP, BREAST EXAM TODAY, INCREASE EXERCISE ; RECORDED 06/21/19 14 2:37PM BY BRIAN BENOIT MA ANNOTATI ON/ADDEN DUM Not Available [facility] 4 05:37:58 Low back pain 486215951 Completed 201309/29/2013 IMPRESSI ON: FOR MONTHS, HX OF A FEW FALLS, PT TO SET UP PT ORDER TO PT TODAY; RECORDED 06/21/19 14 2:38PM BY BRIAN BENOIT MA, ANNOTATI ON/ADDEN DUM FRIEDA French, [facility] 7 15:02:14 Dysfunct ional uterine bleeding Active 2016 FRIEDA Goyal, [facility] 8 15:03:51 Hypothyr oidism 79610770 Active 2017 FRIEDA Goyal, [facility] 8 15:04:12 History of intestin al infectio n caused by Clostrid ioides difficil e 56607468179 9101 Completed 201704/10/2023 JARVIS NGUYEN MD [address] [address], [place], [address] , [facility] 4 08:20:32 Mild intermit tent asthma 176745835 Active 2019 [place] nicolas null, [facility] 0 10:09:22 Eczema 88546227 Active 2020 Junaid Botello MA null, [facility] 1 15:05:27 Psoriasi s 7317776 Active 2022 Dominga Jameson null, [facility] 3 07:52:52 Irritabl e bowel syndrome with diarrhea 062776594 Active 2022 Dominga Jameson [facility], [facility] 3 07:53:26 Problem Notes None recorded. Procedures Surgical History Date Name Laterality Status Provider Name and Address Organization Details Recorded Time 10/17/19 25 Cerumen Removal completed JARVIS NGUYEN MD [address] [facility] [address], [place], [address], [facility] 10/16/2024 14:35:12 05/16/19 25 Most Recent Mammogram completed Katharina Alvarez [facility] 05/16/2024 12:53:24 05/16/19 25 Mammogram screening completed Katharina Alvarez [facility] 05/16/2024 12:53:06 07/15/19 23 Dressing Change completed JARVIS NGUYEN MD [address] [facility] [address] [facility], [place], [address], [facility] 07/14/2022 07:44:40 06/20/19 23 Suture/Staple removal completed JARVIS NGUYEN MD [address] [address], [place], [address], [facility] 06/19/2022 10:34:36 06/17/19 23 Suture/Staple removal completed JARVIS NGUYEN MD [address] [facility] [address] [facility], [place], [address], [facility] 06/15/2022 09:30:10 12/21/19 21 Date of Last Pap Smear completed Junaid Botello MA [facility] 12/22/2020 11:07:59 05/03/19 19 Mini-Cog Test completed Junaid Botello MA [facility] 05/02/2018 08:44:28 07/25/19 17 Mini-Cog Test completed Junaid Botello MA [facility] 07/24/2016 14:56:47 10/01/19 16 Suture/Staple removal completed Estrellita Pitt PA-C [address] [facility] [address] [facility], [place], [address], [facility] 10/01/2015 14:56:47 Tonsillectomy completed Brian Benoit [facility] 09/04/2013 15:46:02 Imaging Results None recorded. Procedure Notes None recorded. Medical Equipment None Reported. Allergies Allergen ID Allergen Name Allergen Category Reaction Reaction Severity Criticality Documentation Date Start Date Code Code System Note Provider Name and Address Organization Details Recorded Time 41572 Elimite medicatio n rash Not available Not available 10/22/2013 32423 5 RxNorm [place] NyRicha bethelmiah prajapati [facility] 4 11:49:40 42335 amoxicill in / clavulana te medicatio n diarrhea Not available Not available 01/12/20252013 33670 RxNorm Not Available jose - External [employer] - prod 5 14:49:27 28404 permethri n medicatio n rash Not available Not available 01/12/2025 47571 RxNorm Not Available [employer] External Data Service - prod 5 14:49:27 6664 Augmentin medicatio n diarrhea Not available Not available 09/02/20132013 14699 2 RxNorm FRIEDA Zhou [facility] 8 15:06:49 6665 No known allergy (situatio n) Not available Not available Not available Not available 09/02/20132011 09362 6003 SNOMED COMME NT: RECOR DED 11/01 10:34 AM BY SAL GUTHRIE MA, ANNOT ATION /ADDE NDUM; Not Available [facility] 4 13:24:03 Medications Name Sig [...] 03/08 completed RECORDED 03/13/19 13 3:49PM BY BROOKLYN Ramsay MD, MEDICATI ON AUTO-EMERY CTIVATIO N; Not Available Not Available Not Available doxepin 25 mg capsule as needed active RECORDED 06/21/19 14 2:40PM BY BRIAN BENOIT MA, OFFICE VISIT; Not Available Not [...] RECORDED 06/25/19 10 1:45PM [facility]ATH SMITH[facility]; Not Available Not Available Not [...] 02/08 completed RECORDED 02/27/19 12 2:43PM BY BROOKLYN Ramsay MD, MEDICATI ON AUTO-EMERY CTIVATIO N; [...] 12/29 completed RECORDED 01/11/20 11 3:27PM BY BROOKLYN Ramsay MD, MEDICATI ON AUTO-EMERY CTIVATIO N; Not Available Not Available Not Available albuterol (refill) 90 mcg/actua tion aerosol inhaler QID PRN WHEEZING 11/01 completed RECORDED 11/02/19 12 10:40AM BY JUNAID BOTELLO, OFFICE VISIT; Not Available Not Available Not Available divalproe x ER 250 mg tablet,ex tended release 24 hr TAKE 1 TABLET BY MOUTH TWICE A DAY DIRECTED 10/16 completed Not Available Not Available Not Available cyclobenz aprine 5 mg tablet EVERY 8 HRS NEEDED FOR MUSCLE SPASM 06/15 completed RECORDED 06/19/19 13 2:01PM BY JUNAID BOTELLO, CHRISTIANATI ON AUTO-EMERY CTIVATIO N; Not Available Not Available Not Available aripipraz ole 5 mg tablet QD 09/17 completed RECORDED 09/18/19 10 8:54AM BY TAO JUAREZ, OFFICE VISIT;[facility] Not Available Not Available Not Available Spiriva with [employer] r 18 mcg and inhalatio n capsules active Not Available Not Available Not Available carbamaze pine ER 200 mg capsule,e xtended release [id number] r TAKE 2 CAPSULES BY MOUTH TWICE A DAY 10/16 completed Not Available Not Available Not Available carbamaze pine ER 300 mg capsule,e xtended release [id number] r TAKE 1 CAPSULE BY MOUTH TWICE [...] 10/25 completed RECORDED 10/26/19 13 2:48PM BY JUNAID BOTELLO, OFFICE VISIT; Not Available Not Available [...] 06/15 completed RECORDED 06/19/19 13 2:01PM BY FERNANDO FRENCH ON AUTO-EMERY CTIVATIO N; Not Available Not [...] x 4)/0.5 mL IM syringe PHARMACY ADMINIST [facility] 03/18 completed Not Available Not Available Not [...] Updated DateTime 5 160.02 cm 28.2 kg/m2 98565.1 9 g 104 /min 97 % 98.3 [degF] 113/82 mm[Hg] Brianna Norwood MA [facility] 5 14:47:39 Social History Question Answer Notes LastModified by Organizat ion Details LastModified Time Tobacco Smoking Status Never Smoker Brian prajapati [facility] 09/04/2013 15:53:32 Do You Have An Advance Directive? No Information not available 01/20/2022 Is Blood Transfusion Acceptable In An Emergency? Yes [email or web address] Information not available 10/16/2014 What Is Your Level Of Caffeine Consumption? Occasional Seldom Information not available 08/27/2020 How Much Tobacco Do You Chew? None [email or web address] Information not available 08/04/2019 What Type Of [...] Take Precautions To Prevent Distracted Driving? Yes [email or web address] Information not available 10/16/2014 How Often Do You Need To Have Someone Help You When You Read Instructions, Pamphlets, Or Other Written Material From Your Doctor Or Pharmacy? Sometimes [email or web address] Information not available 10/16/2014 Have You Served In The ? No [email or web address] Information not available 12/22/2020 Have You Or Anyone In Your Household Had Any Of The Following Symptoms In The Last 14 Days: Sore Throat, Cough, Chills, Body Aches For Unknown Reasons, Shortness Of Breath For Unknown Reasons, Loss Of Smell, Loss Of Taste, Fever At Or Greater Than 100 Degrees Fahrenheit? No Information not available 08/18/2019 Are You Or Anyone In Your Household A Health Care Provider Or Emergency Responder? No [email or web address] Information not available 08/18/2019 To The Best Of Your Knowledge Have You Been In Close Proximity To Any Individual Who Tested Positive For COVID-19? No [email or web address] Information not available 08/18/2019 *AWV ONLY* Are You Presently Prescribed Opioid Medication By PCP Or Specialist? If YES -Provider Assess The Benefit For Other, Non-opioid Pain Therapies Instead, Even If The Patient Does Not Have OUD But Is Possibly At Risk. No [email or web address] Information not available 12/22/2020 Have You Recently Traveled To A COVID-19 High Risk Area Or Gathering In The Last 10 Days? No [email or web address] Information not available 03/18/2020 What Was The Date Of Your Most Recent Tobacco Screening? 06/30/2024 [email or web address] Information not available 06/30/2024 How Many Children Do You Have? 0 Information not available 08/27/2020 What Is Your Relationship Status? Single Information not available 01/20/2022 Seat Belts Used Routinely Yes Information not available 01/20/2022 Are You Sexually Active? Yes Woman Partner [email or web address] Information not available 02/15/2015 Smoke Alarm In Home Yes Information not available 01/20/2022 At What Age Did You Start Smoking Tobacco? 0 [email or web address] Information not available 08/04/2019 How Much Tobacco Do You Smoke? No Information not available 08/04/2019 General Stress Level Medium Information not available 01/20/2022 Do You Use Sunscreen Routinely? Yes [email or web address] Information not available 10/16/2014 Sex: Unknown Functional Status Question Answer Note LastModified by Organizat ion Details LastModified Time What is your level of alcohol consumption? None Information not available 08/27/2020 Do you or have you ever used smokeless tobacco? Never used smokeless tobacco [email or web address] Information not available 08/04/2019 Are you currently employed? No [email or web address] Information not available 02/15/2015 Are you able to walk independently without assistance or assistive devices? [email or web address] Information not available 01/20/2022 Are you able to care for yourself independently? Yes [email or web address] Information not available 02/15/2015 What is your [...] Time Mother Carcinoma in situ of breast [email or web address] Not available 02/15 11:12:37 Maternal Grandmother Carcinoma in situ of breast [email or web address] Not available 02/15 11:12:37 Maternal Grandfather Myocardial infarction [email or web address] Not available 01/20 11:12:37 Notes:No FH of colon cancer Medical History Condition Response Coronary Artery Disease N Gout N Other N Blood Diseases N Kidney Stones N Hyperthyroidism Y Breast Cancer N mrsa exposure N Lung Disease N Hypothyroidism N Depression Y COPD N Defects or Inherited Disease N Developmental or Behavioral Disorders N Breast Problem N Anesthesia Complications N Headaches/Migraines N Varicose Veins N Anxiety Disorder Y Muscle, Joint, or Bone Problems N Obesity N Vision or Eye Problems N Arthritis N Head Injury/Concussion N Infertility N Polyps N Mental Disorder N Congenital Anomalies N [...] Details Recorded Time Tdap 6 completed FRIEDA Dexter [facility] 01/20/2022 13:24:33 Influenza, split virus, quadrivalent, PF 5 completed Not Available [facility] 03/08/2019 02:22:02 pneumococcal polysaccharide PPV23 5 completed Not Available [facility] 03/08/2019 02:21:42 COVID-19, mRNA, LNP-S, PF, 30 mcg/0.3 mL dose 1 completed FRIEDA Dexter [facility] 01/20/2022 13:24:02 COVID-19, mRNA, LNP-S, PF, 30 mcg/0.3 mL dose 1 completed FRIEDA Dexter [facility] 01/20/2022 13:24:02 COVID-19, mRNA, LNP-S, PF, 30 mcg/0.3 mL dose 1 completed FRIEDA Dexter [facility] 01/20/2022 13:24:02 COVID-19, mRNA, LNP-S, bivalent, PF, 30 mcg/0.3 mL dose 2 completed FRIEDA Dexter, [facility] 01/20/2022 13:24:33 Td (adult), 5 Lf tetanus toxoid, preservative free, adsorbed 4 completed FRIEDA Dexter, [facility] 01/20/2022 13:24:33 Influenza, MDCK, quadrivalent, PF 0 completed FRIEDA Dexter, [facility] 01/20/2022 13:24:33 Tdap 3 completed FRIEDA French, [facility] 08/17/2022 11:37:19 Influenza, split virus, quadrivalent, PF 3 completed FRIEDA French, [facility] 04/26/2023 14:40:16 Influenza, split virus, quadrivalent, PF 6 completed Not Available [facility] 03/08/2019 02:22:04 Influenza, split virus, quadrivalent, PF 7 completed Not Available [facility] 03/08/2019 02:22:11 Influenza, split virus, quadrivalent, PF 8 completed Not Available [facility] 03/08/2019 02:22:15 Influenza, split virus, trivalent, PF 4 completed Not Available [facility] 03/08/2019 02:21:57 Influenza, split virus, quadrivalent, PF 9 completed Not Available [facility] 03/08/2019 02:22:10 Influenza, split virus, quadrivalent, PF 1 completed [place] prajapati, [facility] 12/22/2020 11:24:47 Meningococcal MCV4O 6 completed Not Available [facility] 09/02/2013 13:58:38 Influenza, split virus, trivalent, preservative 7 completed Not Available [facility] 09/02/2013 13:58:38 Influenza, split virus, trivalent, preservative 8 completed Not Available [facility] 09/02/2013 13:58:38 Tdap 8 completed Not Available [facility] 09/02/2013 13:58:38 Influenza, split virus, trivalent, preservative 0 completed Not Available [facility] 09/02/2013 13:58:38 Influenza, split virus, trivalent, preservative 1 completed Not Available [facility] 09/02/2013 13:58:38 Influenza, split virus, trivalent, preservative 2 completed Not Available [facility] 09/02/2013 13:58:38 influenza, seasonal, intradermal, preservative free 3 completed Not Available [facility] 09/02/2013 13:58:38 Influenza, split virus, quadrivalent, PF 2 completed [place] dooley [facility] 12/01/2021 10:15:17 Influenza, split virus, trivalent, PF 4 completed JARVIS NGUYEN MD [address], [address] 12/21/2023 19:00:12 Past Encounters Encounter ID Performer Location Encounter Start Date Encounter Closed Date Diagnosis/Indication Diagnosis SNOMED-CT Code Diagnosis ICD10 Code Diagnosis IMO Codes Diagnosis Note [id number] JARVIS NGUYEN MD Main Office [address] [address] 11/21/2024 14:42:11 11/21/2024 15:06:25 Bipolar I disorder 023643974 F31.9 - stable and improved- completed day program at [place]- currently off quetiapine to lithium> pt currently unsure of her medication list- medication s filled by psychiatri - no longer having SI/HI Pruritus of vagina 44536 003 N89.8 805492 - located in the peritoneum - ordered patient clotrimazo le-betamet hasone cream- she will follow with gynecology soon Generalized headache 162 689231 R51.9 274334 - not having headaches, ordered for diagnosis to cover testing- abnormalit ies noted in urine test from recent discharge- now that patient is off lithium re-ordered testing for further evaluation - to consider imaging after testing complete Tachycardia 1555908 R00. 0 - elevated- HR today was [...] control with metoprolol at the time Hypothyroidism 96108348 E03.9 - normal levels- c/w levothyrox ine 100mcg QD Mild inter mittent asthma 850627510 J45.20 - pt takes albuterol pump has needed (will go months without using it)> does use for URI therefore refilled since patient is currently sick- take singular 10mg daily Irritable bowel syndrome with diarrhea 801598360 K58.0 - pt is currently taking dicyclomin e 10mg QID as needed Tinea corporis 26886540 B35.4 78441 - located on the left underarm Psoriasis 3025355 L40.9 - currently on cyltezo injections which provides relief- pt does have an area at the back of left ear were the psoriasis is worse, pt provided with clobetasol cream and advised to moisturise - provided with clobetasol to apply to areas were she has a rash- does follow with derm, next gladys 12/11/2024 Seborrheic dermatitis 50 [id number] L21.9 [id number] - located on the forehead- started patient on ketoconazo le shampoo Health Concerns Section Related Observation LastModified by Organization Detai ls LastModified Time None Recorded Concern Status LastModified by Organization Details LastModified Time None Recorded Payers Encounter Date Sequence Insurance Name Policy Number Policy Scott Covered Member ID Scott Member ID Guarantor Name 11/21/2024 1 [place] [employer] Crystal Chapa [id number] Crystal Chapa 11/21/2024 2 [place] [employer] Crystal Chapa [id number] Crystal Chapa Notes Date Note Type Note Provider Name and Address Organization Details Recorded Time 11/21/2024 text/html ROS as noted in the HPI [...] also completed day program. JARVIS NGUYEN MD [address] [address], [place], [id number], [facility] 11/21/2024 17:20:30 OBGyn Episode No OBEpisode recorded.
--- OUTSIDE RECORDS SUMMARY | 2025-01-14 17:11 | XMS_ITS | Continuity of Care Document ---
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 TO PT TODAY; RECORDED 06/21/19 14 2:38PM BY BRIAN BENOIT MA, ANNOTATI ON/ADDEN DUM FRIEDA French [facility] 7 15:02:14 Single major depressi ve episode Completed 201311/23/2016 IMPRESSI ON: ON MEDS BUT DEPRESSI ON IS ACTIVE, CONTINUE MEDS AND PSYCHIAT RY AND COUNSELI NG VISITS; RECORDED 06/21/19 14 2:38PM BY BRIAN BENOIT MA, OFFICE VISIT [place] prajapati [facility] 7 13:39:20 Neoplasm of uncertai n behavior of skin 64223144 Completed 201303/30/2016 IMPRESSI ON: NODULE IN EAR WITH TELENGIE CTASIA CONCERNI NG FOR MALIGNAN CY. ENT TO FURTHER ASSESS; RECORDED 06/21/19 14 4:06PM BY AMARILIS PATEL, OFFICE VISIT [place] prajapati [facility] 7 16:12:10 Patient status finding [id number] Completed 201303/29/2016 RECORDED 06/21/19 14 2:38PM BY BRIAN BENOIT MA, OFFICE VISIT FRIEDA French, [facility] 7 15:01:47 Otitis media 03322243 Completed 201303/29/2016 IMPRESSI ON: UNCLEAR IF REALLY INFECTED . SHE WILL DO FLONASE AND MUCINEX- D FOR 2 DAYS. IF NOT BETTER, SHE WILL START ABX; RECORDED 06/21/19 14 4:08PM BY AMARILIS PATEL, OFFICE VISIT FRIEDA Fernch, [facility] 7 15:02:45 History of psychiat chiki disorder 587251576 Completed 201303/30/2016 RECORDED 06/21/19 14 2:38PM BY BRIAN BENOIT MA, OFFICE VISIT [place] prajapati [facility] 7 16:11:26 Acute upper respirat ory infectio n 44323659 Completed 201303/29/2016 RECORDED 06/21/19 14 3:30PM BY AMARILIS PATEL, OFFICE VISIT FRIEDA French, [facility] 7 15:02:38 History of depressi on 362674221 Completed 201309/29/2013 RECORDED 06/21/19 14 2:38PM BY BRIAN BENOIT MA, ANNOTATI ON/ADDEN DUM Not Available [facility] 4 05:37:58 Adult health examinat ion Completed 201309/29/2013 IMPRESSI ON: NOT DUE FOR A PAP, BREAST EXAM TODAY, INCREASE EXERCISE ; RECORDED 06/21/19 14 2:37PM BY BRIAN BENOIT MA, ANNOTATI ON/ADDEN DUM Not Available [facility] 4 05:37:58 Low back pain 128163614 Completed 201309/29/2013 IMPRESSI ON: FOR MONTHS, HX OF A FEW FALLS, PT TO SET UP PT ORDER TO PT TODAY; RECORDED 06/21/19 14 2:38PM BY BRIAN BENOIT MA, ANNOTATI ON/ADDEN DUM Junaid Botello MA null, [facility] 7 15:02:14 Dysfunct ional uterine bleeding Active 2016 Neris varela MA null, [facility] 8 15:03:51 Hypothyr oidism 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 Active 2017 Neris varela MA null, [facility] 8 15:04:12 History of intestin al infectio n caused by Clostrid ioides difficil e [id number] 9101 Completed 201704/10/2023 JARVIS NGUYEN MD [address], [place], [address] , [facility] 4 08:20:32 Mild intermit tent asthma 989904027 Active 2019 [place] nicolas null, [facility] 0 10:09:22 Eczema 21067777 Active 2020 Junaid Botello MA null, [facility] 1 15:05:27 Psoriasi s 1488119 Active 2022 Dominga Jameson null, [facility] 3 07:52:52 Irritabl e bowel syndrome with diarrhea 008527843 Active 2022 Dominga Jameson [facility], [facility] 3 07:53:26 Problem Notes None recorded. Procedures Surgical History Date Name Laterality Status Provider Name and Address Organization Details Recorded Time 10/17/19 25 Cerumen Removal completed JARVIS NGUYEN MD [address], [place], [address], [facility] 10/16/2024 14:35:12 05/16/19 25 Most Recent Mammogram completed Katharina Alvarez [facility] 05/16/2024 12:53:24 05/16/19 25 Mammogram screening completed Katharina Alvarez [facility] 05/16/2024 12:53:06 07/15/19 23 Dressing Change completed JARVIS NGUYEN MD [address] [address], [place], [address], [facility] 07/14/2022 07:44:40 06/20/19 23 Suture/Staple removal completed JARVIS NGUYEN MD [address] [address], [place], [address], [facility] 06/19/2022 10:34:36 06/17/19 23 Suture/Staple removal completed JARVIS NGUYEN MD [address] [address], [place], [address], [facility] 06/15/2022 09:30:10 12/21/19 21 Date of Last Pap Smear completed Junaid Botello MA [facility] 12/22/2020 11:07:59 05/03/19 19 Mini-Cog Test completed Junaid Botello MA [facility] 05/02/2018 08:44:28 07/25/19 17 Mini-Cog Test completed Junaid Botello MA [facility] 07/24/2016 14:56:47 10/01/19 16 Suture/Staple removal completed Estrellita Pitt PA-C [address] [address], [place], [address], [facility] 10/01/2015 14:56:47 Tonsillectomy completed Brian Benoit [facility] 09/04/2013 15:46:02 Imaging Results None recorded. Procedure Notes None recorded. Medical Equipment None Reported. Allergies Allergen ID Allergen Name Allergen Category Reaction Reaction Severity Criticality Documentation Date Start Date Code Code System Note Provider Name and Address Organization Details Recorded Time 02235 Elimite medicatio n rash Not available Not available 10/22/2013 58490 5 RxNorm [place] prajapati [facility] 4 11:49:40 23362 amoxicill in / clavulana te medicatio n diarrhea Not available Not available 01/12/20252013 55642 RxNorm Not Available [facility] External Data Service - prod 5 14:49:27 99509 permethri n medicatio n rash Not available Not available 01/12/2025 79643 RxNorm Not Available [facility] External Data [employer] - prod 5 14:49:27 6664 Augmentin medicatio n diarrhea Not available Not available 09/02/20132013 97289 2 RxNorm FRIEDA Zhou MA [facility] 8 15:06:49 6665 No known allergy (situatio n) Not available Not available Not available Not available 09/02/20132011 44340 6003 SNOMED COMME NT: RECOR DED 11/01 10:34 AM BY SAL VARELA MA, ANNOT ATION /ADDE NDUM; Not Available [facility] 4 13:24:03 Medications Name Sig Start Date [...] 10 1:45PM BY HEATH SMITH, ANNOTATI ON/SLIM MANNING; Not Available Not Available [...] 10 8:54AM BY TAO JUAREZ, OFFICE VISIT;FORMERLY [facility] Not Available Not Available Not Available Spiriva with [employer] r 18 mcg and inhalatio n capsules active Not Available Not Available Not Available carbamaze pine ER 200 mg capsule,e xtended release [id number] r TAKE 2 CAPSULES BY MOUTH TWICE A DAY 10/16 completed Not Available Not Available Not Available carbamaze pine ER 300 mg capsule,e xtended release [id number] r TAKE 1 CAPSULE BY MOUTH TWICE [...] completed RECORDED 06/19/19 13 2:01PM BY JUNAID BOTELLO MEDICATI ON AUTO-EMERY CTIVATIO N; Not Available [...] Not Available Vitals Date Recorded Body height Provider Name an d Address Organization Details Last Updated DateTime 01/12/2025 160.02 cm FRIEDA Ramos MA [facility] 01/12/2025 15:00:02 Social History Question Answer Notes LastModified by Organizat ion Details LastModified Time Tobacco Smoking Status Never Smoker Brian prajapati MA [facility] 09/04/2013 15:53:32 Do You Have An Advance Directive? No Information not available 01/20/2022 Is Blood Transfusion Acceptable In An Emergency? Yes [email or web address] Information not available 10/16/2014 What Is Your Level Of Caffeine Consumption? Occasional Seldom Information not available 08/27/2020 How Much Tobacco Do You Chew? None [email or web address] Information not available 08/04/2019 What Type Of Diet Are You Following? REGULAR Eating Mostly Chicken And Fish [email or web address] Information not available 04/05/2022 Which Illicit Or [...] Take Precautions To Prevent Distracted Driving? Yes [email or web address] Information not available 10/16/2014 How Often Do You Need To Have Someone Help You When You Read Instructions, Pamphlets, Or Other Written Material From Your Doctor Or Pharmacy? Sometimes [email or web address] Information not available 10/16/2014 Have You Served In The ? No [email or web address] Information not available 12/22/2020 Have You Or Anyone In Your Household Had Any Of The Following Symptoms In The Last 14 Days: Sore Throat, Cough, Chills, Body Aches For Unknown Reasons, Shortness Of Breath For Unknown Reasons, Loss Of Smell, Loss Of Taste, Fever At Or Greater Than 100 Degrees Fahrenheit? No [email or web address] Information not available 08/18/2019 Are You Or Anyone In Your Household A Health Care Provider Or Emergency Responder? No [email or web address] Information not available 08/18/2019 To The Best Of Your Knowledge Have You Been In Close Proximity To Any Individual Who Tested Positive For COVID-19? No [email or web address] Information not available 08/18/2019 *AWV ONLY* Are You Presently Prescribed Opioid Medication By PCP Or Specialist? If YES -Provider Assess The Benefit For Other, Non-opioid Pain Therapies Instead, Even If The Patient Does Not Have OUD But Is Possibly At Risk. No [email or web address] Information not available 12/22/2020 Have You Recently Traveled To A COVID-19 High Risk Area Or Gathering In The Last 10 Days? No [email or web address] Information not available 03/18/2020 What Was The Date Of Your Most Recent Tobacco Screening? 06/30/2024 [email or web address] Information not available 06/30/2024 How Many Children Do You Have? 0 Information not available 08/27/2020 What Is Your Relationship Status? Single Information not available 01/20/2022 Seat Belts Used Routinely Yes Information not available 01/20/2022 Are You Sexually Active? Yes Woman Partner [email or web address] Information not available 02/15/2015 Smoke Alarm In Home Yes Information not available 01/20/2022 At What Age Did You Start Smoking Tobacco? 0 Information not available 08/04/2019 How Much Tobacco Do You Smoke? No Information not available 08/04/2019 General Stress Level Medium Information not available 01/20/2022 Do You Use Sunscreen Routinely? Yes [email or web address] Information not available 10/16/2014 Sex: Unknown Functional Status Question Answer Note LastModified by Organizat ion Details LastModified Time What is your level of alcohol consumption? None Information not available 08/27/2020 Do you or have you ever used smokeless tobacco? Never used smokeless tobacco [email or web address] Information not available 08/04/2019 Are you currently employed? No [email or web address] Information not available 02/15/2015 Are you able to walk independently without assistance or assistive devices? YESWOREST Information not available 01/20/2022 Are you able to care for yourself independently? Yes [email or web address] Information not available 02/15/2015 What is your [...] Time Mother Carcinoma in situ of breast [email or web address] Not available 02/15 11:12:37 Maternal Grandmother Carcinoma in situ of breast [email or web address] Not available 02/15 11:12:37 Maternal Grandfather Myocardial infarction Not available 01/20 11:12:37 Notes:No FH of [...] Recorded Time Tdap 6 completed FRIEDA Dexter, [facility] 01/20/2022 13:24:33 Influenza, split virus, quadrivalent, PF 5 completed Not Available [facility] 03/08/2019 02:22:02 pneumococcal polysaccharide PPV23 5 completed Not Available [facility] 03/08/2019 02:21:42 COVID-19, mRNA, LNP-S, PF, 30 mcg/0.3 mL dose 1 completed FRIEDA Dexter, [facility] 01/20/2022 13:24:02 COVID-19, mRNA, LNP-S, PF, 30 mcg/0.3 mL dose 1 completed FRIEDA Dexter, [facility] 01/20/2022 13:24:02 COVID-19, mRNA, LNP-S, PF, 30 mcg/0.3 mL dose 1 completed FRIEDA Dexter, [facility] 01/20/2022 13:24:02 COVID-19, mRNA, LNP-S, bivalent, PF, 30 mcg/0.3 mL dose 2 completed FRIEDA Dexter, [facility] 01/20/2022 13:24:33 Td (adult), 5 Lf tetanus toxoid, preservative free, adsorbed 4 completed FRIEDA Dexter, [facility] 01/20/2022 13:24:33 Influenza, MDCK, quadrivalent, PF 0 completed FRIEDA Dexter, [facility] 01/20/2022 13:24:33 [facility] 11:37:19 Influenza, split virus, quadrivalent, PF 3 completed FRIEDA French, [facility] 04/26/2023 14:40:16 Influenza, split virus, quadrivalent, PF 6 completed Not Available [facility] 03/08/2019 02:22:04 Influenza, split virus, quadrivalent, PF 7 completed Not Available [facility] 03/08/2019 02:22:11 Influenza, split virus, quadrivalent, PF 8 completed Not Available [facility] 03/08/2019 02:22:15 Influenza, split virus, trivalent, PF 4 completed Not Available [facility] 03/08/2019 02:21:57 Influenza, split virus, quadrivalent, PF 9 completed Not Available [facility] 03/08/2019 02:22:10 Influenza, split virus, quadrivalent, PF 1 completed [place] [facility] 11:24:47 Meningococcal MCV4O 6 completed Not Available [facility] 09/02/2013 13:58:38 Influenza, split virus, trivalent, preservative 7 completed Not Available [facility] 09/02/2013 13:58:38 Influenza, split virus, trivalent, preservative 8 completed Not Available [facility] 09/02/2013 13:58:38 Tdap 8 completed Not Available [facility] 09/02/2013 13:58:38 Influenza, split virus, trivalent, preservative 0 completed Not Available [facility] 09/02/2013 13:58:38 Influenza, split virus, trivalent, preservative 1 completed Not Available [facility] 09/02/2013 13:58:38 Influenza, split virus, trivalent, preservative 2 completed Not Available [facility] 09/02/2013 13:58:38 influenza, seasonal, intradermal, preservative free 3 completed Not Available [facility] 09/02/2013 13:58:38 Influenza, split virus, quadrivalent, PF 2 completed [place] dooley null, [facility] 12/01/2021 10:15:17 Influenza, split virus, trivalent, PF 4 completed JARVIS NGUYEN MD [address], [address], [facility] 12/21/2023 19:00:12 Past Encounters Encounter ID Performer Location Encounter Start Date Encounter Closed Date Diagnosis/Indication Diagnosis SNOMED-CT Code Diagnosis ICD10 Code Diagnosis IMO Codes Diagnosis Note [id number] Izaiah Prajapati MD [facility] [address] [address] 01/12/2025 14:49:03 01/12/2025 16:09:31 Cellulitis of head 123022417 H60.12 [id number] Infected psoriatic plaque behind the L. ear. Recom oral antibiotic s and mupirocin cream. Pt is starting new psoriasis treatment per Dr. Quintana. Psoriasis 2369990 L40.9 78592 see above. Health Concerns Section Related Observation LastModified by Organization Detai ls LastModified Time None Recorded Concern Status LastModified by Organization Details LastModified Time None Recorded Payers Encounter Date Sequence Insurance Name Policy Number Policy Scott Covered Member ID Scott Member ID Guarantor Name 01/12/2025 1 [place]ICARE [place]: [employer] Crystal Chapa [id number] Crystal Chapa 01/12/2025 2 [place] [facility] Crystal Chapa [id number] Crystal Chapa Notes Date Note Type Note Provider Name and Address Organization Details Recorded Time 01/12/2025 text/html ROS as noted in the HPI [...] no erythema or discharge. Estrellita Pitt PA-C [address] [address], [place], [address], [facility] 01/12/2025 15:26:22 OBGyn Episode No OBEpisode recorded.
--- OUTSIDE RECORDS SUMMARY | 2025-01-14 17:11 | XMS_ITS | Clinical Summary ---
Author Organization [facility] Address [address] [place] [address] Phone Care Team Providers Care Pattern Chart Writer Name Role Phone Renuka Ramírez MD Primary [...] Office Visit [facility] [address] [place] [address] [place] [address] Izzy Bradshaw MD Routine gynecological examination (Primary [...] Pap Test (10/23/2024 12:00 AM EDT) Report [address] [address] Surface Miner: Deion Jaeger MD [employer] Cytology Report FINAL DIAGNOSIS A. PAP SMEAR (THIN PREP) CE: SPECIMEN ADEQUACY: Satisfactory for evaluation; transformation zone absent/insufficien t. INTERPRETATION: NEGATIVE FOR INTRAEPITHELIAL LESION OR MALIGNANCY. This specimen was analyzed by the automated SequentaPrep Imaging System ([employer] and the selected gary were reviewed by a toe stripper. Electronically Signed Out By: THIAGO Evans(ASCP) The [...] by real-time polymerase chain reaction (PCR) at [facility], [address] [place] [address] using the FDA-approved Compete Onclarity HPV Assay with extended genotyping. Uses of the assay in scenarios other than those approved by the FDA should be considered off-label use. The accuracy and precision of this test for all other off-label specimen sources has been verified in the Cytopathology Laboratory of the [facility] and has not been cleared or approved [...] : 1980 (Age: 44) Sex: F Institution: [facility] Location: GOBGYN Date of Collection: 10/23/2024 Date of Reported: 10/28/2024 08:03 Results to: Izzy Bradshaw MD [facility] Final Diagnosis A. PAP SMEAR (THIN PREP) CE: SPECIMEN ADEQUACY: Satisfactory for evaluation; transformation zone absent/insufficien t. INTERPRETATION: NEGATIVE FOR INTRAEPITHELIAL LESION OR MALIGNANCY. This specimen was analyzed by the automated ThinPrep Imaging System ([employer] and the selected gary were reviewed by a toe stripper. [facility] Results\Inter pretation A. PAP SMEAR (THIN PREP) CE: High-risk HPV Panel w/ extended genotyping NEG HPV 16-NEG HPV 18-NEG HPV 45-NEG HPV 33/58-NEG HPV 31-NEG HPV 56/59/66-NEG HPV 51-NEG HPV 52-NEG HPV 35/39/68-NEG Performed by real-time polymerase chain reaction (PCR) at [facility], [address] [place] [address] using the FDA-approved Compete Onclarity HPV Assay with extended genotyping. Uses of the assay in scenarios other than those approved by the FDA should be considered off-label use. The accuracy and precision of this test for all other off-label specimen sources has been verified in the Cytopathology Laboratory of the [facility] and has not been cleared or approved by the U.S. Food and Drug Administration. Clinical correlation is advised. The assay assesses the E6/E7 DNA target and utilizes human beta globin as an internal control. Cytology and HPV testing are screening assays and should not be used as the sole means of detecting cancer. False-positives and false-negatives can occur. [facility] Conversion Type (Conversion Source) 10/23/2024 10/24/2024 9:52 AM EDT us Izzy Bradshaw MD CYTOLOGY ORDERABLES Edited Res ult - Final [facility] [address] [place] [address] from Last 3 Months Insurance MEDICARE PART A & [place] [facility] B Member Subscriber Plan / Payer (Ef fective 2010-) Name:Crystal Roblero Member ID:[id number] Relation to Subscriber:Self Name:Crystal Roblero Subscriber ID:[id number] Payer ID:[id number] Group ID:Not on file Type:Medicare Address: [facility] [employer] [facility] [employer] [facility] [address] [place] [address] [place] PART A & B HEALTH MEDICARE PART A & [place] [facility] Care Teams Pattern Chart Writer Relationship Specialty Start Date End Date Renuka Ramírez MD [address] [address] PCP - General Family Medicine 09/09/24 Additional Source Comments The information contained in this document represents components of the legal health record. It is not the complete legal health record.[facility]
--- OUTSIDE RECORDS SUMMARY | 2025-01-14 17:12 | XMS_ITS | Clinical Summary ---
Author Organization [employer] [facility] Address [address] [place] [address] Care Team Providers Care Health Science Writer Name Role Phone Unavailable Primary Care Provider Unavailabl e Social History Tobacco Use Types Packs/Day Years Used Date Smoking Tobacco: Never Assessed Sex and Gender Information Value Date Recorded Sex Assigned at Not on file Gender Identity Not on file Sexual Orientation Not on file Plan of Treatment Not on file
--- OUTSIDE RECORDS SUMMARY | 2025-01-14 17:12 | XMS_ITS | Continuity of Care Document ---
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 WILL HAVE DERM CHECK OUT; RECORDED 09/25/19 13 4:19PM BY NYDIA CHRISTIANSEN MA, ANNOTATI ON/ADDEN DUM Not Available [facility] 4 14:53:48 Backache [id number] Completed 201209/29/2013 IMPRESSI ON: CALL IN 1 WEEK IF NOT IMPROVIN G. WARNED OF DROWSINE SS WITH VICODIN AND FLEXERIL ; RECORDED 09/25/19 13 4:19PM BY NYDIA CHRISTIANSEN MA, ANNOTATI ON/ADDEN DUM Idalmis prajapati MA - [facility] 7 16:11:29 Screenin g for malignan t neoplasm of cervix Completed 201209/29/2013 RECORDED 09/25/19 13 4:19PM BY NYDIA CHRISTIANSEN MA, ANNOTATI ON/ADDEN DUM Not Available [facility] 4 05:37:58 Dysmenor rocael [id number] Completed 201209/29/2013 IMPRESSI ON: NL EXAM PAP AND CXS TODAY; RECORDED 09/25/19 13 4:19PM BY NYDIA CHRISTIANSEN MA, ANNOTATI ON/ADDEN DUM Not Available [facility] 4 05:37:58 Fall on or from stairs or steps Completed 201209/29/2013 RECORDED 09/25/19 13 4:19PM BY NYDIA CHRISTIANSEN MA, ANNOTATI ON/ADDEN DUM Not Available [facility] 4 05:37:58 Pain in limb [id number] Completed 201209/29/2013 IMPRESSI ON: LIKELY CONTUSIO N WILL MAKE SURE NO FRACTURE ; RECORDED 09/25/19 13 4:19PM BY NYDIA CHRISTIANSEN MA, ANNOTATI ON/ADDEN DUM Not Available [facility] 4 05:37:59 Disorder of skin and/or subcutan eous tissue [id number] Completed 201209/29/2013 IMPRESSI ON: SKIN OF VULVA WITH 6 REDDISH LESIONS SEEMS LIKE VASCULAR LESIONS BUT WILL HAVE DERM CHECK OUT; RECORDED 09/25/19 13 4:19PM BY NYDIA CHRISTIANSEN MA, ANNOTATI ON/ADDEN DUM Not Available [facility] 4 05:37:59 Influenz a vaccine needed [id number] 06 Completed 201209/02/2013 RECORDED 10/26/19 13 2:51PM BY JUDIE BOTELLO, OFFICE VISIT Not Available [facility] 4 14:53:46 Influenz a vaccine needed 08073610540 06 Completed 201209/29/2013 RECORDED 10/26/19 13 2:51PM BY JUDIE BOTELLO, OFFICE VISIT Not Available [facility] 4 05:37:58 Diarrhea [id number] Completed 201209/02/2013 IMPRESSI ON: NEW PROBLEM, PT WILL SEE DR MARION FOR EVAL,; RECORDED 01/11/20 13 10:05AM BY SHI BENOIT MA, ANNOTATI ON/ADDEN DUM Not Available [facility] 4 14:53:45 Eruption [id number] Completed 201209/02/2013 IMPRESSI ON: FROM PICKING HER HEAD WITH NERVES, NO INFECTIO N, TREAT WITH CREAM; RECORDED 01/11/20 13 10:05AM BY SHI BENOIT MA ANNOTATI ON/ADDEN DUM FRIEDA French, [facility] 7 15:02:11 Diarrhea [id number] Completed 201209/29/2013 IMPRESSI ON: NEW PROBLEM, PT WILL SEE DR MARION FOR RENETTA,; RECORDED 01/11/20 13 10:05AM BY SHI BENOIT MA ANNOTATI ON/ADDEN DUM Not Available [facility] 4 05:37:58 Eruption [id number] Completed 201209/29/2013 IMPRESSI ON: FROM PICKING HER HEAD WITH NERVES, NO INFECTIO N, TREAT WITH CREAM; RECORDED 01/11/20 13 10:05AM BY SHI BENOIT MA, ANNOTATI ON/ADDEN DUM FRIEDA French, [facility] 7 15:02:11 Anemia 906076211 Completed 201303/30/2016 RECORDED 06/21/19 14 2:38PM BY SHI BENOIT MA, OFFICE VISIT Idalmis prajapati [facility] 7 16:11:49 Alopecia [id number] Completed 201303/30/2016 RECORDED 06/21/19 14 2:38PM BY SHI BENOIT MA, OFFICE VISIT Idalmis prajapati [facility] 7 16:12:02 Anxiety state 181118466 Active 2013 FRIEDA Goyal, [facility] 8 15:03:46 Asthma 496374168 Completed 201310/02/2019 Idalmis prajapati, [facility] 0 10:11:13 Bipolar I disorder 318624100 Active 2013 FRIEDA Goyal, [facility] 8 15:03:43 Disorder of coccyx 05755700 Completed 201303/30/2016 IMPRESSI ON: PAIN FORM FALL NO XRAY NEEDED, TIME AND MOTRIN; RECORDED 06/21/19 14 2:38PM BY SHI BENOIT MA, OFFICE VISIT Idalmis prajapati [facility] 7 16:12:05 History of depressi on [id number] Completed 201309/02/2013 RECORDED 06/21/19 14 2:38PM BY SHI BENOIT MA, ANNOTATI ON/ADDEN DUM Not Available [facility] 4 14:53:45 Adult health examinat ion Completed 201309/02/2013 IMPRESSI ON: NOT DUE FOR A PAP, BREAST EXAM TODAY, INCREASE EXERCISE ; RECORDED 06/21/19 14 2:37PM BY SHI BENOIT MA, ANNOTATI ON/ADDEN DUM Not Available [facility] 4 14:53:46 Pain of hip region 48493197 Completed 201303/30/2016 IMPRESSI ON: FELL 10 DAYS AGO, PAIN IN BILATERA L HIPS, WILL GET XRAY TO RULE OUT FRACTURE THOUGH UNLIKELY MOTRINA ND REST; RECORDED 06/21/19 14 2:38PM BY SHI BENOIT MA, OFFICE VISIT Idalmis prajapati [facility] 7 16:11:59 Impacted cerumen 73759432 Completed 201303/29/2016 IMPRESSI ON: EAR LAVAGE PERFORME D, CERUMEN REMOVED; RECORDED 06/21/19 14 4:08PM BY AMARILIS PATEL, OFFICE VISIT FRIEDA French, [facility] 7 15:01:56 Insomnia 488851568 Completed 201303/30/2016 IMPRESSI ON: BETTER MEDS HELPING; RECORDED 06/21/19 14 2:38PM BY SHI BENOIT MA, OFFICE VISIT Idalmis prajapati [facility] 7 16:11:37 Low back pain 624274045 Completed 201309/02/2013 IMPRESSI ON: FOR MONTHS, HX OF A FEW FALLS, PT TO SET UP PT ORDER TO PT TODAY; RECORDED 06/21/19 14 2:38PM BY SHI BENOIT MA, ANNOTATI ON/ADDEN DUM FRIEDA French, [facility] 7 15:02:14 Single major depressi ve episode Completed 201311/23/2016 IMPRESSI ON: ON MEDS BUT DEPRESSI ON IS ACTIVE, CONTINUE MEDS AND PSYCHIAT RY AND COUNSELI NG VISITS; RECORDED 06/21/19 14 2:38PM BY SHI BENOIT MA, OFFICE VISIT Idalmis prajapati [facility] 7 13:39:20 Neoplasm of uncertai n behavior of skin 04205969 Completed 201303/30/2016 IMPRESSI ON: NODULE IN EAR WITH TELENGIE CTASIA CONCERNI NG FOR MALIGNAN CY. ENT TO FURTHER ASSESS; RECORDED 06/21/19 14 4:06PM BY AMARILIS PATEL, OFFICE VISIT Idalmis prajapati [facility] 7 16:12:10 Patient status finding [id number] Completed 201303/29/2016 RECORDED 06/21/19 14 2:38PM BY SHI BENOIT MA, OFFICE VISIT FRIEDA French, [facility] 7 15:01:47 Otitis media 94445520 Completed 201303/29/2016 IMPRESSI ON: UNCLEAR IF REALLY INFECTED . SHE WILL DO FLONASE AND MUCINEX- D FOR 2 DAYS. IF NOT BETTER, SHE WILL START ABX; RECORDED 06/21/19 14 4:08PM BY AMARILIS PATEL, OFFICE VISIT FRIEDA French, [facility] 7 15:02:45 History of psychiat chiki disorder 550844619 Completed 201303/30/2016 RECORDED 06/21/19 14 2:38PM BY SHI BENOIT MA, OFFICE VISIT Idalmis prajapati [facility] 7 16:11:26 Acute upper respirat ory infectio n 75119775 Completed 201303/29/2016 RECORDED 06/21/19 14 3:30PM BY AMARILIS PATEL, OFFICE VISIT FRIEDA French, [facility] 7 15:02:38 History of depressi on 440533481 Completed 201309/29/2013 RECORDED 06/21/19 14 2:38PM BY SHI BENOIT MA, ANNOTATI ON/ADDEN DUM Not Available [facility] 4 05:37:58 Adult health examinat ion Completed 201309/29/2013 IMPRESSI ON: NOT DUE FOR A PAP, BREAST EXAM TODAY, INCREASE EXERCISE ; RECORDED 06/21/19 14 2:37PM BY SHI BENOIT MA ANNOTATI ON/ADDEN DUM Not Available [facility] 4 05:37:58 Low back pain 651340693 Completed 201309/29/2013 IMPRESSI ON: FOR MONTHS, HX OF A FEW FALLS, PT TO SET UP PT ORDER TO PT TODAY; RECORDED 06/21/19 14 2:38PM BY SHI BENOIT MA, ANNOTATI ON/ADDEN DUM Judie Botello MA null, [facility] 7 15:02:14 Dysfunct ional uterine bleeding Active 2016 Brendan varela MA null, [facility] 8 15:03:51 Hypothyr oidism 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 Active 2017 FRIEDA Goyal, [facility] 8 15:04:12 History of intestin al infectio n caused by Clostrid ioides difficil e 85733757077 9101 Completed 201704/10/2023 JARVIS NGUYEN MD [address], [place] [place], [address] , [facility] 4 08:20:32 Mild intermit tent asthma 717409832 Active 2019 Idalmis nicolas null, [facility] 0 10:09:22 Eczema 82797256 Active 2020 Judie Botello MA null, [facility] 1 15:05:27 Psoriasi s 4052716 Active 2022 Dominga Jameson [facility], [facility] 3 07:52:52 Irritabl e bowel syndrome with diarrhea 859622142 Active 2022 Dominga Krsilvestreapemelissa [facility], [facility] 3 07:53:26 Problem Notes None recorded. Procedures Surgical History Date Name Laterality Status Provider Name and Address Organization Details Recorded Time 10/17/19 25 Cerumen Removal completed JARVIS NGUYEN MD [address], [place], [address], [facility] 10/16/2024 14:35:12 05/16/19 25 Most Recent Mammogram completed Katharina Alvarez [facility] 05/16/2024 12:53:24 05/16/19 25 Mammogram screening completed Katharina Alvarez [facility] 05/16/2024 12:53:06 07/15/19 23 Dressing Change completed JARVIS NGUYEN MD [address] [facility] [address] [facility], [place], [address], [facility] 07/14/2022 07:44:40 06/20/19 23 Suture/Staple removal completed JARVIS NGUYEN MD [address] [facility] [address] [facility], [place], [address], [facility] 06/19/2022 10:34:36 06/17/19 23 Suture/Staple removal completed JARVIS NGUYEN MD [address] [address], [place], [address], [facility] 06/15/2022 09:30:10 12/21/19 21 Date of Last Pap Smear completed Judie Botello MA [facility] 12/22/2020 11:07:59 05/03/19 19 Mini-Cog Test completed Judie Botello MA [facility] 05/02/2018 08:44:28 07/25/19 17 Mini-Cog Test completed Judie Botello MA [facility] 07/24/2016 14:56:47 10/01/19 16 Suture/Staple removal completed Estrellita Pitt PA-C [address] [address], [place], [address], [facility] 10/01/2015 14:56:47 Tonsillectomy completed Shi Benoit [facility] 09/04/2013 15:46:02 Imaging Results None recorded. Procedure Notes None recorded. Medical Equipment None Reported. Allergies Allergen ID Allergen Name Allergen Category Reaction Reaction Severity Criticality Documentation Date Start Date Code Code System Note Provider Name and Address Organization Details Recorded Time 27151 Elimite medicatio n rash Not available Not available 10/22/2013 71894 5 RxNorm Idalmis prajapati [facility] 4 11:49:40 33331 amoxicill in / clavulana te medicatio n diarrhea Not available Not available 01/12/20252013 35254 RxNorm Not Available [facility] External Data Service - prod 5 14:49:27 93924 permethri n medicatio n rash Not available Not available 01/12/2025 20604 RxNorm Not Available [facility] External Data Service - prod 5 14:49:27 6664 Augmentin medicatio n diarrhea Not available Not available 09/02/20132013 41977 2 RxNorm FRIEDA Zhou [facility] 8 15:06:49 6665 No known allergy (situatio n) Not available Not available Not available Not available 09/02/20132011 28727 6003 SNOMED COMME NT: RECOR DED 11/01 10:34 AM BY SAL VARELA MA, ANNOT ATION /ADDE NDUM; Not Available [facility] 4 13:24:03 Medications Name Sig Start [...] MANNING; Not Available Not Available Not Available metronida [...] capsule FOUR TIMES DAILY for 5 days. 11/24/ 2025 active Not Available Not Available Not Avai [...] PLEASE SEE ATTACHED FOR DETAILED DIRECTIO NS 11/01 /2024 completed Not Available Not Available Not Available [...] 09/18/19 10 8:54AM BY TAO JUAREZ, OFFICE VISIT;[facility] Not Available Not Available Not Available Spiriva with [employer] r 18 mcg and inhalatio n capsules active Not Available Not Available Not Available carbamaze pine ER 200 mg capsule,e xtended release [id number] r TAKE 2 CAPSULES BY MOUTH TWICE A DAY 10/16 completed Not Available Not Available Not Available carbamaze pine ER 300 mg capsule,e xtended release [id number] r TAKE 1 CAPSULE BY MOUTH TWICE [...] 06/15 completed RECORDED 06/19/19 13 2:01PM BY CHRISTIAN FRENCHATI ON AUTO-EMERY CTIVATIO N; Not Available Not [...] x 4)/0.5 mL IM syringe [facility] 03/18 completed Not Available Not Available Not [...] Updated DateTime 5 160.02 cm 28.5 kg/m2 85285.3 7 g 101 /min 98 % 98.1 [degF] 114/82 mm[Hg] Brianna Norwood MA [facility] 5 14:07:16 Social History Question Answer Notes LastModified by Organizat ion Details LastModified Time Tobacco Smoking Status Never Smoker Shi prajapati [facility] 09/04/2013 15:53:32 Do You Have An Advance Directive? No Information not available 01/20/2022 Is Blood Transfusion Acceptable In An Emergency? Yes [email or web address] Information not available 10/16/2014 What Is Your Level Of Caffeine Consumption? Occasional Seldom Information not available 08/27/2020 How Much Tobacco Do You Chew? None [email or web address] Information not available 08/04/2019 What Type Of Diet Are You Following? REGULAR Eating Mostly Chicken And Fish [email or web address] Information not available 04/05/2022 Which Illicit Or [...] Take Precautions To Prevent Distracted Driving? Yes [email or web address] Information not available 10/16/2014 How Often Do You Need To Have Someone Help You When You Read Instructions, Pamphlets, Or Other Written Material From Your Doctor Or Pharmacy? Sometimes Information not available 10/16/2014 Have You Served In The ? No [email or web address] Information not available 12/22/2020 Have You Or Anyone In Your Household Had Any Of The Following Symptoms In The Last 14 Days: Sore Throat, Cough, Chills, Body Aches For Unknown Reasons, Shortness Of Breath For Unknown Reasons, Loss Of Smell, Loss Of Taste, Fever At Or Greater Than 100 Degrees Fahrenheit? No [email or web address] Information not available 08/18/2019 Are You Or Anyone In Your Household A Health Care Provider Or Emergency Responder? No [email or web address] Information not available 08/18/2019 To The Best Of Your Knowledge Have You Been In Close Proximity To Any Individual Who Tested Positive For COVID-19? No [email or web address] Information not available 08/18/2019 *AWV ONLY* Are You Presently Prescribed Opioid Medication By PCP Or Specialist? If YES -Provider Assess The Benefit For Other, Non-opioid Pain Therapies Instead, Even If The Patient Does Not Have OUD But Is Possibly At Risk. No [email or web address] Information not available 12/22/2020 Have You Recently Traveled To A COVID-19 High Risk Area Or Gathering In The Last 10 Days? No [email or web address] Information not available 03/18/2020 What Was The Date Of Your Most Recent Tobacco Screening? 06/30/2024 [email or web address] Information not available 06/30/2024 How Many Children Do You Have? 0 Information not available 08/27/2020 What Is Your Relationship Status? Single Information not available 01/20/2022 Seat Belts Used Routinely Yes Information not available 01/20/2022 Are You Sexually Active? Yes Woman Partner Information not available 02/15/2015 Smoke Alarm In Home Yes Information not available 01/20/2022 At What Age Did You Start Smoking Tobacco? 1 [email or web address] Information not available 08/04/2019 How Much Tobacco Do You Smoke? No [email or web address] Information not available 08/04/2019 General Stress Level Medium Information not available 01/20/2022 Do You Use Sunscreen Routinely? Yes [email or web address] Information not available 10/16/2014 Sex: Unknown Functional Status Question Answer Note LastModified by Organizat ion Details LastModified Time What is your level of alcohol consumption? None Information not available 08/27/2020 Do you or have you ever used smokeless tobacco? Never used smokeless tobacco [email or web address] Information not available 08/04/2019 Are you currently employed? No [email or web address] Information not available 02/15/2015 Are you able to walk independently without assistance or assistive devices? YESWOREST Information not available 01/20/2022 Are you able to care for yourself independently? Yes [email or web address] Information not available 02/15/2015 What is your [...] Time Mother Carcinoma in situ of breast [email or web address] Not available 02/15 11:12:37 Maternal Grandmother Carcinoma in situ of breast [email or web address] Not available 02/15 11:12:37 Maternal Grandfather Myocardial infarction [email or web address] Not available 01/20 11:12:37 Notes:No FH of colon cancer Medical History Condition Response Coronary Artery Disease N Other N Gout N Kidney Stones N Blood Diseases N Hyperthyroidism Y Breast Cancer N mrsa exposure N Hypothyroidism N Lung Disease N COPD N Depression Y Developmental or Behavioral Disorders N Defects or [...] Details Recorded Time Tdap 6 [facility] 13:24:33 Influenza, split virus, quadrivalent, PF 5 completed Not Available [facility] 03/08/2019 02:22:02 pneumococcal polysaccharide PPV23 5 completed Not Available [facility] 03/08/2019 02:21:42 COVID-19, mRNA, LNP-S, PF, [...] virus, quadrivalent, PF 6 completed Not Available [facility] 03/08/2019 02:22:04 Influenza, split virus, quadrivalent, PF 7 completed Not Available [facility] 03/08/2019 02:22:11 Influenza, split virus, quadrivalent, PF 8 completed Not Available [facility] 03/08/2019 02:22:15 Influenza, split virus, trivalent, PF 4 completed Not Available [facility] 03/08/2019 02:21:57 Influenza, split virus, quadrivalent, PF 9 completed Not Available [facility] 03/08/2019 02:22:10 Influenza, split virus, quadrivalent, PF 1 completed Idalmis prajapati, [facility] 12/22/2020 11:24:47 Meningococcal MCV4O 6 completed Not Available [facility] 09/02/2013 13:58:38 Influenza, split virus, trivalent, preservative 7 completed Not Available [facility] 09/02/2013 13:58:38 Influenza, split virus, trivalent, preservative 8 completed Not Available [facility] 09/02/2013 13:58:38 Tdap 8 completed Not Available [facility] 09/02/2013 13:58:38 Influenza, split virus, trivalent, preservative 0 completed Not Available [facility] 09/02/2013 13:58:38 Influenza, split virus, trivalent, preservative 1 completed Not Available [facility] 09/02/2013 13:58:38 Influenza, split virus, trivalent, preservative 2 completed Not Available [facility] 09/02/2013 13:58:38 influenza, seasonal, intradermal, preservative free 3 completed Not Available [facility] 09/02/2013 13:58:38 Influenza, split virus, quadrivalent, PF 2 completed Idalmis prajapati, [facility] 12/01/2021 10:15:17 Influenza, split virus, trivalent, PF 4 completed JARVIS NGUYEN MD [address], [address], [facility] 12/21/2023 19:00:12 Past Encounters Encounter ID Performer Location Encounter Start Date Encounter Closed Date Diagnosis/Indication Diagnosis SNOMED-CT Code Diagnosis ICD10 Code Diagnosis IMO Codes Diagnosis Note [id number] Izaiah Prajapati MD Main Office [address] [address] 09/16/2024 08:55:29 09/16/2024 10:06:43 Chest discomfort 787395771 R07.89 266340 Anxiety state 664956653 F41.1 see above Sinus tachycardia 705904 01 R00.0 3924 44 year old female [...] intake. Pt was reassured. Bipolar I disorder 07896 7096 F31.9 continue current treatment as per psych [id number] JARVIS NGUYEN MD Main Office [address] [facility] [address] [place] [address] 10/08/2024 10:58:56 10/08/2024 11:27:08 [id number] JARVIS NGUYEN MD Main Office [address] [facility] [address] [place] [address] 10/16/2024 13:58:41 10/16/2024 14:45:04 Bipolar I disorder 913905817 F31.9 - stable and improved- PHQ-9 score score of 2 with elevated NIA-7 score 10- completed day program [place]- currently off quetiapine to lithium> pt currently unsure of her medication list- medication s filled by psychiatri st- no longer having SI/HI Post-disch arge follow-up [id number] Z09 846396 - reviewed discharge summary Generalized headache 162 314814 R51.9 643066 - not having headaches, ordered for diagnosis to cover testing- abnormalit ies noted in urine test from recent discharge- now that patient is off lithium re-ordered testing for further evaluation - to consider imaging after testing complete Wax in ear canal 9594206 02 H61.20 57703 - bilateral- underwent irrigation Pruritus of vagina 01224 003 N89.8 372427 - located in the peritoneum - ordered patient clotrimazo le-betamet hasone cream- she will follow with gynecology soon Health Concerns Section Related Observation LastModified by Organization Detai ls LastModified Time None Recorded Concern Status LastModified by Organization Details LastModified Time None Recorded Payers Encounter Date Sequence Insurance Name Policy Number Policy Scott Covered Member ID Scott Member ID Guarantor Name 10/16/2024 1 [place] [employer] Crystal Chapa [id number] Crystal Chapa 10/16/2024 2 [place] [facility] Crystal Chapa [id number] Crystal Chapa Notes Date Note Type Note Provider Name and Address Organization Details Recorded Time 5 text/html Hospitalization Contact RecordReported by PatientHospitalization Contact RecordFor follow up, patient [facility]shospital[facility],admit date: (please enter in format 'mm/dd/yyyy') (09/28/2024),date of discharge: (please enter in format 'mm/dd/yyyy') (10/07/2024), anddate of contact: (please enter in format 'mm/dd/yyyy') (10/08/2024)([facility]).Medicare covered inpatient stay? yes Medicare SARAHI with in 48 working hours? yes High Complexity code valid on or before:September Moderate Complexity code valid on or before: October HCP on file? no MOLST on file? no Discharge Summary available? yes 44 year old female who was admitted to [facility] [place] completed a 10 day program discharge to [...] an appoitment with gynecology. JARVIS NGUYEN MD [address] [address], [place], [address], [facility] 10/16/2024 14:40:09 OBGyn Episode No OBEpisode recorded.
== END ==
LOC: HO.CARD 14:15
PROVIDERS: PCP Student in an Organized Health Care Education/Training Program; Visit Provider Psychiatry & Neurology Psychiatry
DX: F31.81 Bipolar II disorder (principal)
CPT/HCPCS: 93005

== ENCOUNTER → 2025-01-14 14:20 | Outpatient (BNV) | payer MEDICARE, MEDICAID, SELFPAY | PROVIDERS: PCP Student in an Organized Health Care Education/Training Program; Visit Provider Internal Medicine Cardiovascular Disease | DX: Z13.6 Encounter for screening for cardiovascular disorders (principal) | CPT/HCPCS: 93010 ==

== ENCOUNTER 2025-01-21 11:00 | Outpatient (RCR) | payer MEDICARE, MEDICAID, SELFPAY ==
[2025-01-06 11:46] VITALS: BMI 28.9
[2025-01-06 11:47] VITALS: BP 126/88; PULSE 84; TEMP 37.4
--- NOTE | 2025-01-06 13:19 | PC.ADMIT ---
Patient is a 44 year old single female who was referred to [facility] by her prescriber secondary to increase in anxiety and depression sxs. Patient reports stresses includes medication changes, psoriasis flare, and her home life. Patient reports that she has no day structure. Regarding her psoriasis medication patient stated, I ran out of my Cyltezo medication. They are going to be putting me on a new medication but I haven't gotten it yet . Patient stated she will let staff know when she gets the new medication so we can update her medication list. Patient is alert and oriented x4. She is calm and cooperative. She presents with depressed mood and anxious affect. Patient reports passive SI. Patient stated, Its easier to like I don't know, to just not be here. Patient denied any plans or intent to kill herself. Patient was given a copy of her safety plan if needed. Patient reports she started using marijuana again vaping daily. Stated last use was two days ago. Patient wants to abstain from using while in the program. I've been trying to stay away from it because I'm on all these new meds and I want to clear my head to see how the new meds work. Patient did not want to attend [facility] groups at this time for more support. Medications updated with patient and with patient's prescriber Dr. Griffin. Patient reports she is taking medications as prescribed.
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
--- NOTE | 2025-01-07 11:50 | HO.PHP ---
[facility] staff member reached out to Crystal after unsuccessfully being able to locate her on campus. Crystal did not answer the phone and a voicemail was left encouraging her to call back. [facility] staff member continued to look for Crystal and reached out for a second time, in which she answered. Crystal was in the parking lot in her car. Crystal said she only answered because she does not want a wellness check on her. PHP staff member explored what was occurring, in which he voiced appeared to be quivering and she said she is not good. Upon further exploration, Crystal did not want to disclose what was going she just kept repeating herself that she is not good. PHP staff member explored if Crystal feels she needs to be assessed by the CARE team if she is not doing well. Crystal said she doesn't want to speak with them. [facility] staff member then asked Crystal if she would be willing to come inside to speak to one of us. Crystal said she would. PHP staff member assessed safety, in which she said she has no SI, Plan or intent. When Crystal came into the office, PHP staff member explored what is occurring. Crystal stated she doesn't know she's not good. PHP staff member explored what is causing her to not feel good. Crystal sat in silence and was not engaging. [facility] staff member informed Crystal that she is trying to help support her and is unable to do that at this time because she is uncertain to what is occurring. Crystal continued to sit in silence. [facility] staff member explored with the other clinician in the office, Olga to see if something was mentioned in the first group that would have led to Crystal wanting to leave. Olga voiced that she discussed the frustration she feels around medication changes and feeling hopeless. Crystal said that is what I said. Olga continued to talk with Crystal around how she has been while here previously and how things always improve. Crystal said she doesn't see that happening this time. When asked why she doesn't see that occurring this time. She just said last time she was up, down, and all around. [facility] staff members assessed for safety, in which she said she was uncertain to if she was suicidal. Due to Crystal not being forthcoming with information, Danielle met with her one on one to see if she could further assess.
--- NOTE | 2025-01-07 13:05 | PC.NURSE ---
Crystal did not show up to the second group. She is having a difficult time today. She met with [facility] staff Danielle and was reported to be crying uncontrollably. Per Danielle patient expressed having suicidal thoughts with plans that won't work Reports medication changes are not working and she is feeling helpless and hopeless. Reviewed aforementioned information with Shi from the care team. Section 12 A obtained. Nurse to nurse done with [facility] nurse Ebony. Patient was escorted to ER for a crisis evaluation with staff and security. Patient willing to go down to be assessed.
--- NOTE | 2025-01-07 14:06 | HO.PHP ---
Tax Examining Technician met with Crystal to check in. Crystal reported to policy writer sales that she was experiencing thoughts of hopelessness, thoughts of suicide with a plan that she was not willing to disclose, and reporting that protective factors were in place but did not stop her feelings of wanting to not be alive. Crystal presented as tearful, hopeless, helpless and depressed. When asked if she was feeling safe with herself or able to contract for safety, Crystal was unable to do so. PHP team was consulted, team recommendation was to send Crystal to the ED to get assessed by the CARE team to assess for risk and recommendations. Crystal was walked down to the ED on a section 12 by security, policy writer sales and CARE Artificial Breeding Distributor.
--- NOTE | 2025-01-08 13:52 | HO.PHP ---
Crystal's case was opened during weekly team treatment meeting
--- NOTE | 2025-01-08 23:00 | HO.PHPPROGNO ---
Subjective Subjective Date of Service: 01/08/25 Reason For Visit: bipolar,PTSD Interim History: Patient reviewing her really bad day yesterday was feeling ovewhelmed. Says she went out to her car and shopped online for a brief time before returning to program and going down to the ED. Reports using cannabis Sunday night, but denied any cannabis use Sun, no mention of alcohol use, although was not explicitly asked about (patient not known to use alcohol). ... had to go down to Crisis and sit there until I was ready to leave . Once calmed she did not feel she needed to be inpatient. [place] very embarrassed coming in to program today, concerned staff were disappointed with her behavior yesterday, however was pleased to find everyone was support. Brighter today, not tearful, but complaining of still feeling depressed and easily overwhelmed. Endorses passive SI thoughts without any intention, urge or plan. She was unable to peanut picker her medications today, but brought in the rest of her medications, and we made changes to her pill organizer to reflect planned/discussed changes. Took 300 mg CBZ this am, so will hold CBZ tonight and tomorrow will move to 400 mg/d (split 200 bid). Bumping up risperidone today to 1 mg TID and lowering dose of olanzapine to 10 mg. Is eager to get off this medication due to insatiable appetite, I'm just eating like crap . Says her mother even mentioned her eating to apartment maintenance worker. Reviewed lab work from 01/06-: 1.Hypothyroidism TSH 2.31 (ideally range 0.4-2.5 on LT4) patient complaints (depression, weight gain, dry skin) may align with symptoms of hypothyroidism (undertreated). May consider bumping levothyroxine from 75 to 88 mcg FT4 0.86 also suboptimal (0.9-1.7) Renal fxn/NDI: Urine osmolality normalized 497 ([id number]), was severely dilute at 142 in 09/2024 on lithium. Creatinine also improved at 0.91 since September (1.16) We have had to restart lithium this week for mood stability. [place] level (01/06) 0.41, started 01/03 May consider not fully transitioning over to lithium, remaining on some CBZ as LT4 is bumped up and see if depression/weight gain/dermatitis improve. Also noting BAL 12 when seen at Crisis yesterday (not sure this was addressed). Will discuss with patient. Medication Compliance: Yes Side effects from medications: No Attending Groups: Yes Review of Systems Acute medical concerns: Yes as noted above Mental Status Exam Mental Status Exam Narrative: General: in no acute distress Appearance: Casually dressed. Grooming/hygiene wnl. Good eye contact Attitude: Cooperative, engaged Speech: Fluent and wnl in regard to volume, tone, prosody Motor activity: Calm, occasional eye flutter tic at baseline, no tremors or dyskinesias. Steady gait Mood: anxious, dysthymic Affect: appropriate, reactive, anxious but brightens up appropriately Thought process: linear, coherent and without evidence of formal thought disorder Thought content: related to stressors, feeling demoralized, helplessness, transient hopelessness, chronic vague passive SI thoughts without u/i/p, no AI or HI Perception: denies AH or VH, does not appear to be internally preoccupied nor responding to unseen stimuli Alert/oriented in all spheres Cognition grossly intact Insight: fair but adequate Judgment: fair but adequate Diagnostics Vital Signs (24Hr): BMI result Body Mass Index 28.9 Assessment & Plan Assessment & Plan (1) Bipolar 2 disorder: Status: Acute Code(s): F31.81 - Bipolar II disorder (2) Other mixed anxiety disorders: Status: Acute Code(s): F41.3 - Other mixed anxiety disorders (3) Attention-deficit hyperactivity disorder, unspecified type: Qualifiers: Attention deficit-hyperactivity disorder type: predominantly inattentive Qualified Code(s): F90.0 - Attention-deficit hyperactivity disorder, predominantly inattentive type Status: Acute Code(s): F90.9 - Attention-deficit hyperactivity disorder, unspecified type Assessment and Plan: r/o other neurocognitive or developmental issues/LD (4) PMDD (premenstrual dysphoric disorder): Status: Acute Code(s): F32.81 - Premenstrual dysphoric disorder (5) Hoarding behavior: Status: Acute Code(s): F42.3 - Hoarding disorder (6) Cannabis use disorder: Status: Acute Code(s): F12.90 - Cannabis use, unspecified, uncomplicated Plan Continue PHP continue levothyroxine 75 mcg qd (will discuss increasing dose to 88 mcg/d) increase Lithobid from 600 mg/d to 900 mg/d (split 300/600) decrease carbamazapine ER to 200 mg BID increase risperidone to 1 mg TID (or switching to paliperidone oral vs ARANDA) decrease olanzapine to 10 mg qhs start memantine ER 7 mg qhs continue Ambien 5 mg qhs prn sleep hold onto Thorazine 25 mg (may need for sleep once ZYprexa discont) continue other medications as usual: lorazepam 0.5 mg BID prn MPH ER 20 mg qam guanfacine ER 1 mg qd at 1700 benztropine 1 mg qhs diazepam 2.5 mg daily@5pm diazepam 5 mg qhs Cyltezo 40 mg inj q 2wks progesterone 100 mg qhs x 21 days (restart Day 5 of menses) methylated vitamin B complex (off L-carnitine 500 mg qd x 2-4 weeks, will check level) for consideration of VPA Lab work reviewed as noted above, some remaining lab work still pending: carnitine level, zinc, thiamine EKG reviewed: QTc 425 ms, change from 10/2024, however findings in keeping with abnormal EKG from 05/2024 VS reviewed: BP 126/88; 84 bpm Engage in milieu therapy Dispo: TC to explore CSP worker Continue to monitor Patient educated on: diagnosis, medication risk/benefits and medical condition Informed Consent: understands Reason for contiued partial hosp. stay Substantial Risk for: inability to function, rapid decompensation and med/psych decompensation Certification I certify that partial hospital treatment is medically necessary due to the symptoms and problems resulting from the patient's mental illness and the failure to treat the patient at the partial hospital level of care would likely result in the patient requiring inpatient psychiatric care which could not be prevented at a less intensive level of care. Total time managing care of this patient today __45__ minutes. Discharge Plan Discharge Attending provider: Dee Griffin Medications: New lithium carbonate 300 mg tablet extended release 300 mg PO BID Qty: 30 0RF carbamazepine [Carbatrol] 100 mg capsule, ER multiphase 12 hr 100 mg PO BID Qty: 60 0RF risperidone 1 mg tablet 1 mg PO BID Qty: 60 0RF chlorpromazine 25 mg tablet 25 - 50 mg PO BEDTIME PRN (Reason: sleep) Qty: 30 0RF lithium carbonate 450 mg tablet extended release 450 mg PO BID Qty: 60 0RF memantine 7 mg capsule,sprinkle,ER 24hr 7 mg PO DAILY Qty: 30 0RF levothyroxine [Unithroid] 88 mcg tablet 88 mcg PO DAILY Qty: 30 0RF Continued zolpidem 5 mg tablet 5 mg PO BEDTIME PRN (Reason: insomnia) Qty: 30 0RF No Action benztropine 1 mg tablet 1 mg PO BEDTIME Qty: 90 0RF olanzapine 20 mg tablet 20 mg PO BEDTIME Qty: 90 0RF methylphenidate HCl 20 mg tablet 20 mg PO QAM Qty: 30 0RF Rx Instructions: Partial Fill upon patient request. guanfacine 1 mg tablet extended release 24 hr 1 mg PO DAILY Qty: 90 0RF Rx Instructions: at 5pm levothyroxine 75 mcg capsule 75 mcg PO DAILY Qty: 90 0RF risperidone 0.5 mg tablet 0.5 mg PO BID PRN (Reason: agitation) Qty: 60 0RF carbamazepine [Carbatrol] 300 mg capsule, ER multiphase 12 hr 300 mg PO BID 90 Days Qty: 180 0RF L-Carnitine 500 mg tablet 500 mg PO DAILY Qty: 60 1RF Rx Instructions: must administer with a meal/food lorazepam 1 mg tablet 1 mg PO DAILY PRN (Reason: anxiety) Qty: 30 0RF progesterone micronized 100 mg capsule 100 mg PO QAM 21 Days Qty: 21 2RF Rx Instructions: start on Day 5 of menses- continue for 21 days, off 7 days; repeat cycle diazepam 5 mg tablet See Rx Instructions .ROUTE .COMPLEX PRN (Reason: dystonic reaction) Rx Instructions: Take 1/2 tab at 5:00 pm and 1 tab at bedtime. Print Language: Romansh
--- NOTE | 2025-01-12 14:25 | HO.PHP ---
Crystal asked to speak with this screen writer at the end of program today. She stated that she feels she is going 3 steps back. She relayed she has been overwhelmed with medication changes, and nothing is getting better. She reported feeling hopeless, and she did not want to come to program today. This screen writer validated her efforts that appeared slightly receptive. She reported having thoughts in which she did not elaborate. She agreed to stay a few minutes and meet with the PHP provider after speaking with this screen writer.
--- NOTE | 2025-01-14 20:57 | P.PNPSP_ITS ---
Subjective Subjective Date of Service: 01/13/25 Reason For Visit: bipolar,PTSD Interim History: Patient seen for follow-up. No major issue in the interim. Has been getting along with mom better. Less tearful irritable and reactive. Sleep and appetite are intact she has been staying busy Denies any hopelessness or SI no AH or VH Medication Compliance: Yes Side effects from medications: No Attending Groups: Yes Review of Systems Acute medical concerns: No Mental Status Exam Mental Status Exam Narrative: General: in no acute distress Appearance: Casually dressed. Grooming/hygiene wnl. Good eye contact Attitude: Cooperative, engaged Speech: Fluent and wnl in regard to volume, tone, prosody Motor activity: Calm, occasional eye flutter tic at baseline, no tremors or dyskinesias. Steady gait Mood: anxious, dysthymic Affect: appropriate, reactive, anxious but brightens up appropriately Thought process: linear, coherent and without evidence of formal thought disorder Thought content: related to stressors, feeling demoralized, helplessness, transient hopelessness, chronic vague passive SI thoughts without u/i/p, no AI or HI Perception: denies AH or VH, does not appear to be internally preoccupied nor responding to unseen stimuli Alert/oriented in all spheres Cognition grossly intact Insight: fair but adequate Judgment: fair but adequate Diagnostics Vital Signs (24Hr): BMI result Body Mass Index 28.9 Assessment & Plan Assessment & Plan (1) Bipolar 2 disorder: Status: Acute Code(s): F31.81 - Bipolar II disorder (2) Other mixed anxiety disorders: Status: Acute Code(s): F41.3 - Other mixed anxiety disorders (3) Attention-deficit hyperactivity disorder, unspecified type: Qualifiers: Attention deficit-hyperactivity disorder type: predominantly inattentive Qualified Code(s): F90.0 - Attention-deficit hyperactivity disorder, predominantly inattentive type Status: Acute Code(s): F90.9 - Attention-deficit hyperactivity disorder, unspecified type Assessment and Plan: r/o other neurocognitive or developmental issues/LD (4) PMDD (premenstrual dysphoric disorder): Status: Acute Code(s): F32.81 - Premenstrual dysphoric disorder (5) Hoarding behavior: Status: Acute Code(s): F42.3 - Hoarding disorder (6) Cannabis use disorder: Status: Acute Code(s): F12.90 - Cannabis use, unspecified, uncomplicated Plan Continue PHP continue levothyroxine 75 mcg qd (will discuss increasing dose to 88 mcg/d) continue Lithobid 900 mg/d (split 300/600) decrease carbamazapine ER to 100 mg BID and taper off continue risperidone 1 mg TID decrease olanzapine to 5 mg qhs and taper off continue memantine ER 7 mg qhs, plan to increase to 14 mg tomorrow continue Ambien 5 mg qhs prn sleep hold onto Thorazine 25 mg (may need for sleep once ZYprexa discont) continue other medications as usual: lorazepam 0.5 mg BID prn MPH ER 20 mg qam guanfacine ER 1 mg qd at 1700 benztropine 1 mg qhs diazepam 2.5 mg daily@5pm diazepam 5 mg qhs Cyltezo 40 mg inj q 2wks progesterone 100 mg qhs x 21 days (restart Day 5 of menses) methylated vitamin B complex (off L-carnitine 500 mg qd x 2-4 weeks, will check level) for consideration of VPA Lab work reviewed as noted above, some remaining lab work still pending: carnitine level, zinc, thiamine EKG reviewed: QTc 425 ms, change from 10/2024, however findings in keeping with abnormal EKG from 05/2024 VS reviewed: BP 126/88; 84 bpm Engage in milieu therapy Dispo: TC to explore CSP worker Continue to monitor Patient educated on: diagnosis, medication risk/benefits and medical condition Informed Consent: understands Reason for contiued partial hosp. stay Substantial Risk for: med/psych decompensation Certification I certify that partial hospital treatment is medically necessary due to the symptoms and problems resulting from the patient's mental illness and the failure to treat the patient at the partial hospital level of care would likely result in the patient requiring inpatient psychiatric care which could not be prevented at a less intensive level of care. Total time managing care of this patient today _30___ minutes. Discharge Plan Discharge Attending provider: Dee Griffin Medications: New risperidone 2 mg tablet 2 mg PO BEDTIME Qty: 30 0RF methylphenidate HCl 20 mg tablet extended release 20 mg PO QAM Qty: 30 0RF Rx Instructions: Partial Fill upon patient request. For ADHD. Continued guanfacine 1 mg tablet extended release 24 hr 1 mg PO DAILY Qty: 90 0RF Rx Instructions: at 5pm L-Carnitine 500 mg tablet 500 mg PO DAILY Qty: 60 1RF Rx Instructions: must administer with a meal/food Skyrizi 150 mg/mL Pen Injector See Rx Instructions .ROUTE .COMPLEX Rx Instructions: Inject SQ 150 mg on week 0, on week 4, then every 12 weeks thereafter. risperidone 1 mg tablet 1 mg PO BID Qty: 60 0RF zolpidem 5 mg tablet 5 mg PO BEDTIME PRN (Reason: insomnia) Qty: 30 0RF Changed diazepam 5 mg tablet See Rx Instructions .ROUTE .COMPLEX 30 Days Qty: 60 0RF Rx Instructions: Take 1/2 tab at 5:00 pm and 1 tab at bedtime as directed for dystonic reaction, sleep. Take 1/2 tablet qhs prn insomnia benztropine 1 mg tablet See Rx Instructions .ROUTE .COMPLEX Qty: 135 0RF Rx Instructions: take 1 tablet po QHS, take 1 tablet po qd PRN stiffness/EPS Discontinued olanzapine 20 mg tablet 20 mg PO BEDTIME Qty: 90 0RF methylphenidate HCl 20 mg tablet 20 mg PO QAM Qty: 30 0RF Rx Instructions: Partial Fill upon patient request. levothyroxine 75 mcg capsule 75 mcg PO DAILY Qty: 90 0RF risperidone 0.5 mg tablet 0.5 mg PO BID PRN (Reason: agitation) Qty: 60 0RF carbamazepine [Carbatrol] 300 mg capsule, ER multiphase 12 hr 300 mg PO BID 90 Days Qty: 180 0RF No Action lorazepam 1 mg tablet 1 mg PO DAILY PRN (Reason: anxiety) Qty: 30 0RF memantine 14 mg capsule,sprinkle,ER 24hr 14 mg PO BEDTIME Qty: 30 2RF progesterone micronized 100 mg capsule 100 mg PO QAM 21 Days Qty: 21 2RF Rx Instructions: start on Day 5 of menses- continue for 21 days, off 7 days; repeat cycle lithium carbonate 450 mg tablet extended release 450 mg PO BID Qty: 60 0RF levothyroxine [Unithroid] 88 mcg tablet 88 mcg PO DAILY Qty: 90 0RF risperidone 0.5 mg tablet 0.5 mg PO BID 90 Days Qty: 180 0RF quetiapine 200 mg tablet extended release 24 hr 200 mg PO DAILY Qty: 90 0RF Patient Education: ADHD in Adults (DC), Bipolar Disorder (ED) Print Language: Djiboutian
--- NOTE | 2025-01-21 20:26 | P.PNPSP_ITS ---
Subjective Subjective Date of Service: 01/20/25 Reason For Visit: bipolar,PTSD Interim History: Patient seen for follow-up, anticipating discharge at the end of program today.? Reports no acute issues or concerns. Continues to be fixated on her medications. She reports mood as anxious today and that her anxiety is about having her medications changed. I dont like when things change . She recognizes she is on less medication than in the past. She denies taking issue with any specific medication. Denies any ill effects or side effects. I just don't like these meds I don't know why I just don't . She acknowledges that she generally doesn't like change and that she is more stable. She is bright and engaged. No tearfulness or lability. She is medication compliant, medications well- tolerated. Denies any adverse effects.? Mood is stable.? Denies any hopelessness or SI. Denies thoughts of harming self or others at this time. Denies any aggressive ideation or HI. Denies any paranoia or AH or VH. Sleep a full 8-9 hours, appetite, energy stable. Patient agrees to VNA services although voices some anticipatory anxiety about having people in her home. She lives at home with her parents who are life-long strong supports for patient, however they are getting older and are starting to have their own health to worry about. Patient has been cognizant of trying to be more independent with managing some of her own affairs and agrees VNA would likely be a helpful service for her. Medication Compliance: Yes Side effects from medications: No Attending Groups: Yes Review of Systems Acute medical concerns: No Mental Status Exam Mental Status Exam Narrative: Alert, oriented, in no acute distress. Calm, cooperative. Mood stable, affect appropriate. Speech normal. Thought process linear, coherent. Thought content related to stressors, future-oriented, denies any helplessness, hopelessness or SI.? No aggressive ideation or HI. No paranoia or delusional content elicited. No evidence of psychosis. Insight fair and judgment fair-good. Diagnostics Vital Signs (24Hr): BMI result Body Mass Index 28.9 Assessment & Plan Assessment & Plan (1) Bipolar affective disorder, current episode depressed: Status: Acute Code(s): F31.30 - Bipolar disorder, current episode depressed, mild or moderate severity, unspecified (2) Other mixed anxiety disorders: Status: Acute Code(s): F41.3 - Other mixed anxiety disorders (3) Attention-deficit hyperactivity disorder, unspecified type: Qualifiers: Attention deficit-hyperactivity disorder type: predominantly inattentive Qualified Code(s): F90.0 - Attention-deficit hyperactivity disorder, predominantly inattentive type Status: Acute Code(s): F90.9 - Attention-deficit hyperactivity disorder, unspecified type Assessment and Plan: r/o other neurocognitive or developmental issues/LD (4) Hoarding behavior: Status: Acute Code(s): F42.3 - Hoarding disorder (5) PMDD (premenstrual dysphoric disorder): Status: Acute Code(s): F32.81 - Premenstrual dysphoric disorder Plan [facility]charge from [facility] Continue regular medications? Refills sent to pharmacy Will defer further medication management to outpatient provider *Safety plan reviewed *Discharge diagnoses, treatment course, discharge plan have been reviewed with patient (including medication regime, medication management, potential side effects) as well as treatment rationale were also revisited *Discharge paperwork signed and given to patient, copy sent for scanning to chart Patient educated on: diagnosis and medication risk/benefits Informed Consent: understands Reason for contiued partial hosp. stay Substantial Risk for: stable for discharge Certification I certify that partial hospital treatment is medically necessary due to the symptoms and problems resulting from the patient's mental illness and the failure to treat the patient at the partial hospital level of care would likely result in the patient requiring inpatient psychiatric care which could not be prevented at a less intensive level of care. Total time managing care of this patient today __30__ minutes. Discharge Plan Discharge Attending provider: Dee Griffin Medications: New carbamazepine [Carbatrol] 100 mg capsule, ER multiphase 12 hr 100 mg PO BID Qty: 60 0RF lithium carbonate 450 mg tablet extended release 450 mg PO BID Qty: 60 0RF levothyroxine [Unithroid] 88 mcg tablet 88 mcg PO DAILY Qty: 30 0RF memantine 14 mg capsule,sprinkle,ER 24hr 14 mg PO BEDTIME Qty: 30 0RF risperidone 2 mg tablet 2 mg PO BEDTIME Qty: 30 0RF Continued benztropine 1 mg tablet 1 mg PO BEDTIME Qty: 90 0RF methylphenidate HCl 20 mg tablet 20 mg PO QAM Qty: 30 0RF Rx Instructions: Partial Fill upon patient request. guanfacine 1 mg tablet extended release 24 hr 1 mg PO DAILY Qty: 90 0RF Rx Instructions: at 5pm L-Carnitine 500 mg tablet 500 mg PO DAILY Qty: 60 1RF Rx Instructions: must administer with a meal/food lorazepam 1 mg tablet 1 mg PO DAILY PRN (Reason: anxiety) Qty: 30 0RF progesterone micronized 100 mg capsule 100 mg PO QAM 21 Days Qty: 21 2RF Rx Instructions: start on Day 5 of menses- continue for 21 days, off 7 days; repeat cycle diazepam 5 mg tablet See Rx Instructions .ROUTE .COMPLEX PRN (Reason: dystonic reaction) Rx Instructions: Take 1/2 tab at 5:00 pm and 1 tab at bedtime. zolpidem 5 mg tablet 5 mg PO BEDTIME PRN (Reason: insomnia) Qty: 30 0RF Skyrizi 150 mg/mL Pen Injector See Rx Instructions .ROUTE .COMPLEX Rx Instructions: Inject SQ 150 mg on week 0, on week 4, then every 12 weeks thereafter. risperidone 1 mg tablet 1 mg PO BID Qty: 60 0RF Discontinued olanzapine 20 mg tablet 20 mg PO BEDTIME Qty: 90 0RF levothyroxine 75 mcg capsule 75 mcg PO DAILY Qty: 90 0RF risperidone 0.5 mg tablet 0.5 mg PO BID PRN (Reason: agitation) Qty: 60 0RF carbamazepine [Carbatrol] 300 mg capsule, ER multiphase 12 hr 300 mg PO BID 90 Days Qty: 180 0RF Patient Education: ADHD in Adults (DC), Bipolar Disorder (ED) Print Language: Egyptian
== END 2025-01-21 23:59 | disposition home or self-care (01) ==
LOC: HO.PHPA 11:00
PROVIDERS: Visit Provider Psychiatry & Neurology Psychiatry
DX: F31.30 Bipolar disorder, current episode depressed, mild or moderate severity, unspecified (principal); F31.81 Bipolar II disorder; F41.3 Other mixed anxiety disorders; F90.0 Attention-deficit hyperactivity disorder, predominantly inattentive type; F42.3 Hoarding disorder; F12.90 Cannabis use, unspecified, uncomplicated; Z79.899 Other long term (current) drug therapy
CPT/HCPCS: 90791; 90853

== ENCOUNTER → 2025-01-26 13:34 | Outpatient (REF) | payer MEDICARE, MEDICAID, SELFPAY ==
--- NOTE | 2025-01-26 13:38 | ECG_ITS ---
Test Reason : CHECK QTC Blood Pressure : */* mmHG Vent. Rate : 63 BPM Atrial Rate : 63 BPM P-R Int : 132 ms QRS Dur : 80 ms QT Int : 382 ms P-R-T Axes : 56 69 62 degrees QTcB Int : 390 ms Normal sinus rhythm with sinus arrhythmia Normal ECG When compared with ECG of 14-Jan-2025 14:23, No significant change was found Referred By: Dee Griffin Electronically Signed By: MANDY PADILLA MD
--- OUTSIDE RECORDS SUMMARY | 2025-01-26 22:20 | XMS_ITS | Clinical Summary ---
Author Organization [facility] [address] [facility] Address [address] [place] [address] Phone Care Team Providers Care Antenna Installer Name Role Phone Renuka Ramírez MD Primary Care Provider [phone] Allergies Active Allergy Reactions Criticality Noted Date [...] Comments Asthma DX:Asthma Anxiety Bipolar 1 disorder ([facility] V24, [facility] V28) Irritable bowel syndrome Hypothyroid Psoriasis [...] AM EDT Sexual Orientation Not on file Last Filed [...] Maintenance Results * COLONOSCOPY Anesthesia - MAC; [facility] ENDOSCOPY (09/05/2024 1:52 PM EDT) Anatomical Region Laterality Modality Endoscopy 09/05/2024 1:39 PM EDT Impressions 09/05/2024 1:55 PM EDT - The examined portion of the ileum was normal. - The entire examined colon is normal on direct and retroflexion views. - No specimens collected. Recommendation: - Repeat colonoscopy in 10 years for screening purposes. Narrative 09/05/2024 1:55 PM EDT [facility] GI Patient Name: Crystal Roblero Procedure [...] malignant neoplasm of colon CPT copyright 2020 [employer]. All rights reserved. The codes documented in this report are preliminary and upon certified medical records coder review may be revised to meet current compliance requirements. Debbie Helm MD 09/05/2024 1:55:02 PM This report has been signed electronically.Debbie Helm MD Number of Addenda: 0 Note Initiated On: 09/05/2024 1:39 PM Scope In: Scope Out: Endoscopy Department at [facility] - [address] [place] [id number] Procedure Note Debbie Helm MD - 09/05/2024 [facility] GI Patient Name: Crystal Roblero Procedure [...] for malignantneoplasm of colon CPT copyright 2020 [employer]. All rights reserved. The codes documented in this report are preliminary and upon certified medical records coder reviewmay be revised to meet current compliance requirements. Debbie Helm MD 09/05/2024 1:55:02 PM This report has been signed electronically.Debbie Helm MD Number of Addenda: 0 Note Initiated On: 09/05/2024 1:39 PM Scope In: Scope Out: Endoscopy Department at [facility] - [address] [place] [id number] IMPRESSION: - The examined portion of the ileum was normal. - The entire examined colon is normal on direct and retroflexion views. - No specimens collected. Recommendation: - Repeat colonoscopy in 10 years for screening purposes. Debbie Helm MD GI~PROCEDURE ORDERABLES Final Result from Last 3 Months or Most Recently Relevant to Health Maintenance Insurance MEDICAID - [place] MEDICARE Care Teams Antenna Installer Relationship Specialty Start Date End Date Renuka Ramírez MD [address] [id number] PCP - General Internal Medicine 07/02/24
--- OUTSIDE RECORDS SUMMARY | 2025-01-26 22:20 | XMS_ITS | Clinical Summary ---
Author Organization [facility] Address [address] [place] [address] Phone Care Team Providers Care Book Sewer Name Role Phone Renuka Ramírez MD Primary [...] mouth 2 (two) times a day. Active Family History Medical History Relation Comments Breast [...] 12:00 AM EDT from Last 3 Months or Most Recently Relevant to Health Maintenance Results * Pap Test (10/23/2024 12:00 AM EDT) Report [address] [address] Barrel Liner: Deion Jaeger MD FLAT BREAKDOWN PROCESSOR Cytology Report FINAL DIAGNOSIS A. PAP SMEAR (THIN PREP) CE: SPECIMEN ADEQUACY: Satisfactory for evaluation; transformation zone absent/insufficien t. INTERPRETATION: NEGATIVE FOR INTRAEPITHELIAL LESION OR MALIGNANCY. This specimen was analyzed by the automated ThinPrep Imaging System ([employer] and the selected gary were reviewed by a training associate. Electronically Signed Out By: THIAGO Evans(ASCP) The [...] by real-time polymerase chain reaction (PCR) at [facility], [address] [place] [address] using the FDA-approved [employer] Onclarity HPV Assay with extended genotyping. Uses of the assay in scenarios other than those approved by the FDA should be considered off-label use. The accuracy and precision of this test for all other off-label specimen sources has been verified in the Cytopathology Laboratory of the [facility] and has not been cleared or approved [...] (Age: 44) Sex: F Institution: [facility] Location: [facility] Date of Collection: 10/23/2024 Date of Reported: 10/28/2024 08:03 Results to: Izzy Bradshaw MD [facility] Final Diagnosis A. PAP SMEAR (THIN PREP) CE: SPECIMEN ADEQUACY: Satisfactory for evaluation; transformation zone absent/insufficien t. INTERPRETATION: NEGATIVE FOR INTRAEPITHELIAL LESION OR MALIGNANCY. This specimen was analyzed by the automated ThinPrep Imaging System ([employer] and the selected gary were reviewed by a training associate. [facility] Results\Inter pretation A. PAP SMEAR (THIN PREP) CE: High-risk HPV Panel w/ extended genotyping NEG HPV 16-NEG HPV 18-NEG HPV 45-NEG HPV 33/58-NEG HPV 31-NEG HPV 56/59/66-NEG HPV 51-NEG HPV 52-NEG HPV 35/39/68-NEG Performed by real-time polymerase chain reaction (PCR) at [facility], [address] [place] [address] using the FDA-approved [employer] Onclarity HPV Assay with extended genotyping. Uses of the assay in scenarios other than those approved by the FDA should be considered off-label use. The accuracy and precision of this test for all other off-label specimen sources has been verified in the Cytopathology Laboratory of the [facility] and has not been cleared or approved by the U.S. Food and Drug Administration. Clinical correlation is advised. The assay assesses the E6/E7 DNA target and utilizes human beta globin as an internal control. Cytology and HPV testing are screening assays and should not be used as the sole means of detecting cancer. False-positives and false-negatives can occur. [facility] Conversion Type (Conversion Source) 10/23/2024 10/24/2024 9:52 AM EDT us Izzy Bradshaw MD CYTOLOGY ORDERABLES Edited Res ult - Final Performing Organization Address City/State/[facility] Co de Phone Number [facility] [address] [place] [address] from Last 3 Months or Most Recently Relevant to Health Maintenance Insurance MEDICARE PART A & [facility] B [facility] MEDICARE PART A & B [place] MED[place]ARE PART A & B [facility] [place] [address] Care Teams Book Sewer Relationship Specialty Start Date End Date Renuka Ramírez MD [address] [address] PCP - General Family Medicine 09/09/24 Additional Source Comments The information contained in this document represents components of the legal health record. It is not the complete legal health record.[facility]
--- OUTSIDE RECORDS SUMMARY | 2025-01-26 22:21 | XMS_ITS | Continuity of Care Document ---
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 13948303 Completed 201209/02/2013 IMPRESSI ON: NEW PROBLEM, PT WILL SEE DR MARION FOR EVAL,; RECORDED 01/11/20 13 10:05AM BY BRIAN BENOIT MA, ANNOTATI ON/ADDEN DUM Not Available [facility] 4 14:53:45 Eruption [id number] Completed 201209/02/2013 IMPRESSI ON: FROM PICKING HER HEAD WITH NERVES, NO INFECTIO N, TREAT WITH CREAM; RECORDED 01/11/20 13 10:05AM BY BRIAN BENOIT MA, ANNOTATI ON/ADDEN DUM FRIEDA French, [facility] 7 15:02:11 Diarrhea 41791714 Completed 201209/29/2013 IMPRESSI ON: NEW PROBLEM, PT WILL SEE DR MARION FOR EVAL,; RECORDED 01/11/20 13 10:05AM BY BRIAN BENOIT MA ANNOTATI ON/ADDEN DUM Not Available [facility] 4 05:37:58 Eruption [id number] Completed 201209/29/2013 IMPRESSI ON: FROM PICKING HER HEAD WITH NERVES, NO INFECTIO N, TREAT WITH CREAM; RECORDED 01/11/20 13 10:05AM BY BRIAN BENOIT MA ANNOTATI ON/ADDEN DUM FRIEDA French, [facility] 7 15:02:11 Anemia 194394125 Completed 201303/30/2016 RECORDED 06/21/19 14 2:38PM BY BRIAN BENOIT MA, OFFICE VISIT [place] prajapati [facility] 7 16:11:49 Alopecia 81664553 Completed 201303/30/2016 RECORDED 06/21/19 14 2:38PM BY BRIAN BENOIT MA, OFFICE VISIT [place] prajapati [facility] 7 16:12:02 Anxiety state 672362339 Active 2013 FRIEDA Goyal, [facility] 8 15:03:46 Asthma 344639688 Completed 201310/02/2019 [place] [facility] 10:11:13 Bipolar I disorder 799690456 Active 2013 FRIEDA Goyal, [facility] 8 15:03:43 Disorder of coccyx 23473640 Completed 201303/30/2016 IMPRESSI ON: PAIN FORM FALL NO XRAY NEEDED, TIME AND MOTRIN; RECORDED 06/21/19 14 2:38PM BY BRIAN BENOIT MA, OFFICE VISIT [place] prajapati [facility] 7 16:12:05 History of depressi on 559997502 Completed 201309/02/2013 RECORDED 06/21/19 14 2:38PM BY BRIAN BENOIT MA, MELITON ON/ADDEN DUM Not Available [facility] 4 14:53:45 Adult health examinat ion Completed 201309/02/2013 IMPRESSI ON: NOT DUE FOR A PAP, BREAST EXAM TODAY, INCREASE EXERCISE ; RECORDED 06/21/19 14 2:37PM BY BRIAN BENOIT MA ANNOTMANAN ON/ADDEN DUM Not Available [facility] 4 14:53:46 Pain of hip region 87204458 Completed 201303/30/2016 IMPRESSI ON: FELL 10 DAYS AGO, PAIN IN BILATERA L HIPS, WILL GET XRAY TO RULE OUT FRACTURE THOUGH UNLIKELY MOTRINA ND REST; RECORDED 06/21/19 14 2:38PM BY BRIAN BENOIT MA, OFFICE VISIT [place] prajapati [facility] 7 16:11:59 Impacted cerumen 71054885 Completed 201303/29/2016 IMPRESSI ON: EAR LAVAGE PERFORME D, CERUMEN REMOVED; RECORDED 06/21/19 14 4:08PM BY AMARILIS PATEL, OFFICE VISIT FRIEDA French, [facility] 7 15:01:56 Insomnia 206544176 Completed 201303/30/2016 IMPRESSI ON: BETTER MEDS HELPING; RECORDED 06/21/19 14 2:38PM BY BRIAN BENOIT MA, OFFICE VISIT [place] prajapati [facility] 7 16:11:37 Low back pain 066198581 Completed 201309/02/2013 IMPRESSI ON: FOR MONTHS, HX OF A FEW FALLS, PT TO SET UP PT ORDER TO PT TODAY; RECORDED 06/21/19 14 2:38PM BY BRIAN BENOIT MA, ANNOTATI ON/ADDEN DUM FRIEDA French [facility] 7 15:02:14 Single major depressi ve episode Completed 201311/23/2016 IMPRESSI ON: ON MEDS BUT DEPRESSI ON IS ACTIVE, CONTINUE MEDS AND PSYCHIAT RY AND COUNSELI NG VISITS; RECORDED 06/21/19 14 2:38PM BY BRIAN BENOIT MA, OFFICE VISIT [place] prajapati [facility] 7 13:39:20 Neoplasm of uncertai n behavior of skin 06956054 Completed 201303/30/2016 IMPRESSI ON: NODULE IN EAR WITH TELENGIE CTASIA CONCERNI NG FOR MALIGNAN CY. ENT TO FURTHER ASSESS; RECORDED 06/21/19 14 4:06PM BY AMARILIS PATEL, OFFICE VISIT [place] prajapati [facility] 7 16:12:10 Patient status finding 607346737 Completed 201303/29/2016 RECORDED 06/21/19 14 2:38PM BY BRIAN BENOIT MA, OFFICE VISIT FRIEDA French [facility] 7 15:01:47 Otitis media 48781409 Completed 201303/29/2016 IMPRESSI ON: UNCLEAR IF REALLY INFECTED . SHE WILL DO FLONASE AND MUCINEX- D FOR 2 DAYS. IF NOT BETTER, SHE WILL START ABX; RECORDED 06/21/19 14 4:08PM BY AMARILIS PATEL, OFFICE VISIT FRIEDA French [facility] 7 15:02:45 History of psychiat chiki disorder 515140765 Completed 201303/30/2016 RECORDED 06/21/19 14 2:38PM BY BRIAN BENOIT MA, OFFICE VISIT [place] prajapati [facility] 7 16:11:26 Acute upper respirat ory infectio n 38810961 Completed 201303/29/2016 RECORDED 06/21/19 14 3:30PM BY AMARILIS PATEL, OFFICE VISIT FRIEDA French, [facility] 7 15:02:38 History of depressi on 675230389 Completed 201309/29/2013 RECORDED 06/21/19 14 2:38PM BY BRIAN BENOIT MA, ANNOTATI ON/ADDEN DUM Not Available [facility] 4 05:37:58 Adult health examinat ion Completed 201309/29/2013 IMPRESSI ON: NOT DUE FOR A PAP, BREAST EXAM TODAY, INCREASE EXERCISE ; RECORDED 06/21/19 14 2:37PM BY BRIAN BENOIT MA ANNOTATI ON/ADDEN DUM Not Available [facility] 4 05:37:58 Low back pain 039091647 Completed 201309/29/2013 IMPRESSI ON: FOR MONTHS, HX OF A FEW FALLS, PT TO SET UP PT ORDER TO PT TODAY; RECORDED 06/21/19 14 2:38PM BY BRIAN BENOIT MA, ANNOTATI ON/ADDEN DUM FRIEDA French, [facility] 7 15:02:14 Dysfunct ional uterine bleeding Active 2016 FRIEDA Goyal, [facility] 8 15:03:51 Hypothyr oidism 31451743 Active 2017 FRIEDA Goyal, [facility] 8 15:04:12 History of intestin al infectio n caused by Clostrid ioides difficil e 33290063417 9101 Completed 201704/10/2023 JARVIS NGUYEN MD [address] [address], [place], [address] , [facility] 4 08:20:32 Mild intermit tent asthma 325779026 Active 2019 [place] nicolas null, [facility] 0 10:09:22 Eczema 55330926 Active 2020 Junaid Botello MA null, [facility] 1 15:05:27 Psoriasi s 0617664 Active 2022 Dominga Jameson null, [facility] 3 07:52:52 Irritabl e bowel syndrome with diarrhea 208186820 Active 2022 Dominga Jameson [facility], [facility] 3 07:53:26 Problem Notes None recorded. Procedures Surgical History Date Name Laterality Status Provider Name and Address Organization Details Recorded Time 10/17/19 25 Cerumen Removal completed JARVIS NGUYEN MD [address] [facility] [address], [place], [address], [facility] 10/16/2024 14:35:12 05/16/19 25 Most Recent Mammogram completed Katharina Alvarez [facility] 05/16/2024 12:53:24 05/16/19 25 Mammogram screening completed Katharina Alvarez [facility] 05/16/2024 12:53:06 07/15/19 23 Dressing Change completed JARVIS NGUYEN MD [address] [facility] [address] [facility], [place], [address], [facility] 07/14/2022 07:44:40 06/20/19 23 Suture/Staple removal completed JARVIS NGUYEN MD [address] [address], [place], [address], [facility] 06/19/2022 10:34:36 06/17/19 23 Suture/Staple removal completed JARVIS NGUYEN MD [address] [facility] [address] [facility], [place], [address], [facility] 06/15/2022 09:30:10 12/21/19 21 Date of Last Pap Smear completed Junaid Botello MA [facility] 12/22/2020 11:07:59 05/03/19 19 Mini-Cog Test completed Junaid Botello MA [facility] 05/02/2018 08:44:28 07/25/19 17 Mini-Cog Test completed Junaid Botello MA [facility] 07/24/2016 14:56:47 10/01/19 16 Suture/Staple removal completed Estrellita Pitt PA-C [address] [facility] [address] [facility], [place], [address], [facility] 10/01/2015 14:56:47 Tonsillectomy completed Brian Benoit [facility] 09/04/2013 15:46:02 Imaging Results None recorded. Procedure Notes None recorded. Medical Equipment None Reported. Allergies Allergen ID Allergen Name Allergen Category Reaction Reaction Severity Criticality Documentation Date Start Date Code Code System Note Provider Name and Address Organization Details Recorded Time 34140 Elimite medicatio n rash Not available Not available 10/22/2013 42698 5 RxNorm [place] NyRicha bethelmiah prajapati [facility] 4 11:49:40 04493 amoxicill in / clavulana te medicatio n diarrhea Not available Not available 01/12/20252013 38087 RxNorm Not Available jose - External Data Service - prod 5 14:49:27 59202 permethri n medicatio n rash Not available Not available 01/12/2025 81639 RxNorm Not Available jose [employer] External Data Service - prod 5 14:49:27 6664 Augmentin medicatio n diarrhea Not available Not available 09/02/20132013 26131 2 RxNorm FRIEDA Zhou [facility] 8 15:06:49 6665 No known allergy (situatio n) Not available Not available Not available Not available 09/02/20132011 08250 6003 SNOMED COMME NT: RECOR DED 11/01 10:34 AM BY SAL GUTHRIE MA, ANNOT ATION /ADDE NDUM; Not Available [facility] 4 13:24:03 Medications Name Sig Start Date [...] RECORDED 06/25/19 10 1:45PM [facility] SM[facility]; Not Available Not Available [...] 10 8:54AM BY TAO JUAREZ, OFFICE VISIT;FORMERLY [facility] Not Available Not Available Not Available Spiriva with [employer] r 18 mcg and inhalatio n capsules active Not Available Not Available Not Available carbamaze pine ER 200 mg capsule,e xtended release [id number] r TAKE 2 CAPSULES BY MOUTH TWICE A DAY 10/16 completed Not Available Not Available Not Available carbamaze pine ER 300 mg capsule,e xtended release [id number] r TAKE 1 CAPSULE BY MOUTH TWICE [...] Updated DateTime 5 160.02 cm 28.2 kg/m2 82984.1 9 g 104 /min 97 % 98.3 [degF] 113/82 mm[Hg] Brianna Norwood MA [facility] 5 14:47:39 Social History Question Answer Notes LastModified by Organizat ion Details LastModified Time Tobacco Smoking Status Never Smoker Brian prajapati [facility] 09/04/2013 15:53:32 Do You Have An Advance Directive? No Information not available 01/20/2022 Is Blood Transfusion Acceptable In An Emergency? Yes [email or web address] Information not available 10/16/2014 What Is Your Level Of Caffeine Consumption? Occasional Seldom Information not available 08/27/2020 How Much Tobacco Do You Chew? None [email or web address] Information not available 08/04/2019 What Type Of Diet Are You Following? REGULAR Eating Mostly Chicken And Fish [email or web address] Information not available 04/05/2022 Which Illicit Or [...] Take Precautions To Prevent Distracted Driving? Yes Information not available 10/16/2014 How Often Do You Need To Have Someone Help You When You Read Instructions, Pamphlets, Or Other Written Material From Your Doctor Or Pharmacy? Sometimes [email or web address] Information not available 10/16/2014 Have You Served In The ? No [email or web address] Information not available 12/22/2020 Have You Or Anyone In Your Household Had Any Of The Following Symptoms In The Last 14 Days: Sore Throat, Cough, Chills, Body Aches For Unknown Reasons, Shortness Of Breath For Unknown Reasons, Loss Of Smell, Loss Of Taste, Fever At Or Greater Than 100 Degrees Fahrenheit? No [email or web address] Information not available 08/18/2019 Are You Or Anyone In Your Household A Health Care Provider Or Emergency Responder? No [email or web address] Information not available 08/18/2019 To The Best Of Your Knowledge Have You Been In Close Proximity To Any Individual Who Tested Positive For COVID-19? No [email or web address] Information not available 08/18/2019 *AWV ONLY* Are You Presently Prescribed Opioid Medication By PCP Or Specialist? If YES -Provider Assess The Benefit For Other, Non-opioid Pain Therapies Instead, Even If The Patient Does Not Have OUD But Is Possibly At Risk. No [email or web address] Information not available 12/22/2020 Have You Recently Traveled To A COVID-19 High Risk Area Or Gathering In The Last 10 Days? No Information not available 03/18/2020 What Was The Date Of Your Most Recent Tobacco Screening? 06/30/2024 [email or web address] Information not available 06/30/2024 How Many Children Do You Have? 0 Information not available 08/27/2020 What Is Your Relationship Status? Single Information not available 01/20/2022 Seat Belts Used Routinely Yes Information not available 01/20/2022 Are You Sexually Active? Yes Woman Partner [email or web address] Information not available 02/15/2015 Smoke Alarm In Home Yes Information not available 01/20/2022 At What Age Did You Start Smoking Tobacco? 0 [email or web address] Information not available 08/04/2019 How Much Tobacco Do You Smoke? No [email or web address] Information not available 08/04/2019 General Stress Level Medium Information not available 01/20/2022 Do You Use Sunscreen Routinely? Yes [email or web address] Information not available 10/16/2014 Sex: Unknown Functional Status Question Answer Note LastModified by Organizat ion Details LastModified Time What is your level of alcohol consumption? None Information not available 08/27/2020 Do you or have you ever used smokeless tobacco? Never used smokeless tobacco [email or web address] Information not available 08/04/2019 Are you currently employed? No [email or web address] Information not available 02/15/2015 Are you able to walk independently without assistance or assistive devices? [email or web address] Information not available 01/20/2022 Are you able to care for yourself independently? Yes [email or web address] Information not available 02/15/2015 What is your [...] Time Mother Carcinoma in situ of breast [email or web address] Not available 02/15 11:12:37 Maternal Grandmother Carcinoma in situ of breast [email or web address] Not available 02/15 11:12:37 Maternal Grandfather Myocardial infarction [email or web address] Not available 01/20 11:12:37 Notes:No FH of [...] Recorded Time Tdap 6 completed FRIEDA Dexter [facility] 01/20/2022 13:24:33 Influenza, split virus, quadrivalent, PF 5 completed Not Available [facility] 03/08/2019 02:22:02 pneumococcal polysaccharide PPV23 5 completed Not Available [facility] 03/08/2019 02:21:42 COVID-19, mRNA, LNP-S, PF, 30 mcg/0.3 mL dose 1 completed FRIEDA Dexter [facility] 01/20/2022 13:24:02 COVID-19, mRNA, LNP-S, PF, 30 mcg/0.3 mL dose 1 completed FRIEDA Dexter [facility] 01/20/2022 13:24:02 COVID-19, mRNA, LNP-S, PF, 30 mcg/0.3 mL dose 1 completed FRIEDA Dexter [facility] 01/20/2022 13:24:02 COVID-19, mRNA, LNP-S, bivalent, PF, 30 mcg/0.3 mL dose 2 completed FRIEDA Dexter, [facility] 01/20/2022 13:24:33 Td (adult), 5 Lf tetanus toxoid, preservative free, adsorbed 4 completed FRIEDA Dexter, [facility] 01/20/2022 13:24:33 Influenza, MDCK, quadrivalent, PF 0 completed FRIEDA Dexter, [facility] 01/20/2022 13:24:33 Tdap 3 completed FRIEDA French, [facility] 08/17/2022 11:37:19 Influenza, split virus, quadrivalent, PF 3 completed FRIEDA French, [facility] 04/26/2023 14:40:16 Influenza, split virus, quadrivalent, PF 6 completed Not Available [facility] 03/08/2019 02:22:04 Influenza, split virus, quadrivalent, PF 7 completed Not Available [facility] 03/08/2019 02:22:11 Influenza, split virus, quadrivalent, PF 8 completed Not Available [facility] 03/08/2019 02:22:15 Influenza, split virus, trivalent, PF 4 completed Not Available [facility] 03/08/2019 02:21:57 Influenza, split virus, quadrivalent, PF 9 completed Not Available [facility] 03/08/2019 02:22:10 Influenza, split virus, quadrivalent, PF 1 completed [place] prajapati, [facility] 12/22/2020 11:24:47 Meningococcal MCV4O 6 completed Not Available [facility] 09/02/2013 13:58:38 Influenza, split virus, trivalent, preservative 7 completed Not Available [facility] 09/02/2013 13:58:38 Influenza, split virus, trivalent, preservative 8 completed Not Available [facility] 09/02/2013 13:58:38 Tdap 8 completed Not Available [facility] 09/02/2013 13:58:38 Influenza, split virus, trivalent, preservative 0 completed Not Available [facility] 09/02/2013 13:58:38 Influenza, split virus, trivalent, preservative 1 completed Not Available [facility] 09/02/2013 13:58:38 Influenza, split virus, trivalent, preservative 2 completed Not Available [facility] 09/02/2013 13:58:38 influenza, seasonal, intradermal, preservative free 3 completed Not Available [facility] 09/02/2013 13:58:38 Influenza, split virus, quadrivalent, PF 2 completed [place] dooley [facility] 12/01/2021 10:15:17 Influenza, split virus, trivalent, PF 4 completed JARVIS NGUYEN MD [address], [address] 12/21/2023 19:00:12 Past Encounters Encounter ID Performer Location Encounter Start Date Encounter Closed Date Diagnosis/Indication Diagnosis SNOMED-CT Code Diagnosis ICD10 Code Diagnosis IMO Codes Diagnosis Note [id number] JARVIS NGUYEN MD Main Office [address] [address] 11/21/2024 14:42:11 11/21/2024 15:06:25 Bipolar I disorder 772933706 F31.9 - stable and improved- completed day program at [facility]- currently off quetiapine to lithium> pt currently unsure of her medication list- medication s filled by psychiatri - no longer having SI/HI Pruritus of vagina 46146 003 N89.8 219953 - located in the peritoneum - ordered patient clotrimazo le-betamet hasone cream- she will follow with gynecology soon Generalized headache 162 549301 R51.9 820466 - not having headaches, ordered for diagnosis to cover testing- abnormalit ies noted in urine test from recent discharge- now that patient is off lithium re-ordered testing for further evaluation - to consider imaging after testing complete Tachycardia 2682863 R00. 0 - elevated- HR today was [...] control with metoprolol at the time Hypothyroidism 39273290 E03.9 - normal levels- c/w levothyrox ine 100mcg QD Mild inter mittent asthma 876290772 J45.20 - pt takes albuterol pump has needed (will go months without using it)> does use for URI therefore refilled since patient is currently sick- take singular 10mg daily Irritable bowel syndrome with diarrhea 457416306 K58.0 - pt is currently taking dicyclomin e 10mg QID as needed Tinea corporis 96201705 B35.4 29612 - located on the left underarm Psoriasis 9891598 L40.9 - currently on cyltezo injections which provides relief- pt does have an area at the back of left ear were the psoriasis is worse, pt provided with clobetasol cream and advised to moisturise - provided with clobetasol to apply to areas were she has a rash- does follow with derm, next gladys 12/11/2024 Seborrheic dermatitis 50 934989 L21.9 67510 - located on the forehead- started patient on ketoconazo le shampoo Health Concerns Section Related Observation LastModified by Organization Detai ls LastModified Time None Recorded Concern Status LastModified by Organization Details LastModified Time None Recorded Payers Encounter Date Sequence Insurance Name Policy Number Policy Scott Covered Member ID Scott Member ID Guarantor Name 11/21/2024 1 [place] B[place]: [employer] Crystal Chapa [id number] Crystal Chapa 11/21/2024 2 [place] [employer] Crystal Chapa [id number] Crystal Chapa Notes Date Note Type Note [...] completed day program. JARVIS NGUYEN MD [address] [address], [place], [address], [facility] 11/21/2024 17:20:30 OBGyn Episode No OBEpisode recorded.
--- OUTSIDE RECORDS SUMMARY | 2025-01-26 22:21 | XMS_ITS | Continuity of Care Document ---
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 French [facility] 7 15:02:14 Single major depressi ve episode Completed 201311/23/2016 IMPRESSI ON: ON MEDS BUT DEPRESSI ON IS ACTIVE, CONTINUE MEDS AND PSYCHIAT RY AND COUNSELI NG VISITS; RECORDED 06/21/19 14 2:38PM BY BRIAN BENOIT MA, OFFICE VISIT [place] prajapati [facility] 7 13:39:20 Neoplasm of uncertai n behavior of skin 59044006 Completed 201303/30/2016 IMPRESSI ON: NODULE IN EAR WITH TELENGIE CTASIA CONCERNI NG FOR MALIGNAN CY. ENT TO FURTHER ASSESS; RECORDED 06/21/19 14 4:06PM BY AMARILIS PATEL, OFFICE VISIT [place] prajapati [facility] 7 16:12:10 Patient status finding [id number] Completed 201303/29/2016 RECORDED 06/21/19 14 2:38PM BY BRIAN BENOIT MA, OFFICE VISIT FRIEDA French, [facility] 7 15:01:47 Otitis media 16252178 Completed 201303/29/2016 IMPRESSI ON: UNCLEAR IF REALLY INFECTED . SHE WILL DO FLONASE AND MUCINEX- D FOR 2 DAYS. IF NOT BETTER, SHE WILL START ABX; RECORDED 06/21/19 14 4:08PM BY AMARILIS PATEL, OFFICE VISIT FRIEDA French, [facility] 7 15:02:45 History of psychiat chiki disorder 506220377 Completed 201303/30/2016 RECORDED 06/21/19 14 2:38PM BY BRIAN BENOIT MA, OFFICE VISIT [place] prajapati [facility] 7 16:11:26 Acute upper respirat ory infectio n 23342865 Completed 201303/29/2016 RECORDED 06/21/19 14 3:30PM BY AMARILIS PATEL, OFFICE VISIT FRIEDA French, [facility] 7 15:02:38 History of depressi on 837332433 Completed 201309/29/2013 RECORDED 06/21/19 14 2:38PM BY BRIAN BENOIT MA, ANNOTATI ON/ADDEN DUM Not Available [facility] 4 05:37:58 Adult health examinat ion Completed 201309/29/2013 IMPRESSI ON: NOT DUE FOR A PAP, BREAST EXAM TODAY, INCREASE EXERCISE ; RECORDED 06/21/19 14 2:37PM BY BRIAN BENOIT MA, ANNOTATI ON/ADDEN DUM Not Available [facility] 4 05:37:58 Low back pain 567703117 Completed 201309/29/2013 IMPRESSI ON: FOR MONTHS, HX OF A FEW FALLS, PT TO SET UP PT ORDER TO PT TODAY; RECORDED 06/21/19 14 2:38PM BY BRIAN BENOIT MA, ANNOTATI ON/ADDEN DUM Junaid Botello MA null, [facility] 7 15:02:14 Dysfunct ional uterine bleeding Active 2016 Neris varela MA null, [facility] 8 15:03:51 Hypothyr oidism 57857084 Active 2017 Neris varela MA null, [facility] 8 15:04:12 History of intestin al infectio n caused by Clostrid ioides difficil e 68380943499 9101 Completed 201704/10/2023 JARVIS NGUYEN MD [address] [facility] [address], [place], [address] , [facility] 4 08:20:32 Mild intermit tent asthma 320812711 Active 2019 [place] nicolas null, [facility] 0 10:09:22 Eczema 00040027 Active 2020 Junaid Botello MA null, [facility] 1 15:05:27 Psoriasi s 6399781 Active 2022 Dominga Jameson null, [facility] 3 07:52:52 Irritabl e bowel syndrome with diarrhea 851891688 Active 2022 Dominga Jameson [facility], [facility] 3 07:53:26 Problem Notes None recorded. Procedures Surgical History Date Name Laterality Status Provider Name and Address Organization Details Recorded Time 10/17/19 25 Cerumen Removal completed JARVIS NGUYEN MD [address] [facility] [address], [place], [address], [facility] 10/16/2024 14:35:12 05/16/19 25 Most Recent Mammogram completed Katharina Alvarez [facility] 05/16/2024 12:53:24 05/16/19 25 Mammogram screening completed Katharina Alvarez [facility] 05/16/2024 12:53:06 07/15/19 23 Dressing Change completed JARVIS NGUYEN MD [address] [address], [place], [address], [facility] 07/14/2022 07:44:40 06/20/19 23 Suture/Staple removal completed JARVIS NGUYEN MD [address] [address], [place], [address], [facility] 06/19/2022 10:34:36 06/17/19 23 Suture/Staple removal completed JARVIS NGUYEN MD [address] [address], [place], [address], [facility] 06/15/2022 09:30:10 12/21/19 21 Date of Last Pap Smear completed Junaid Botelol MA [facility] 12/22/2020 11:07:59 05/03/19 19 Mini-Cog Test completed Junaid Botello MA [facility] 05/02/2018 08:44:28 07/25/19 17 Mini-Cog Test completed Junaid Botello MA [facility] 07/24/2016 14:56:47 10/01/19 16 Suture/Staple removal completed Estrellita Pitt PA-C [address] [address], [place], [address], [facility] 10/01/2015 14:56:47 Tonsillectomy completed Brian Benoit [facility] 09/04/2013 15:46:02 Imaging Results None recorded. Procedure Notes None recorded. Medical Equipment None Reported. Allergies Allergen ID Allergen Name Allergen Category Reaction Reaction Severity Criticality Documentation Date Start Date Code Code System Note Provider Name and Address Organization Details Recorded Time 66284 Elimite medicatio n rash Not available Not available 10/22/2013 77075 5 RxNorm [place] prajapati [facility] 4 11:49:40 53289 amoxicill in / clavulana te medicatio n diarrhea Not available Not available 01/12/20252013 49877 RxNorm Not Available [facility] External Data Service - prod 5 14:49:27 43487 permethri n medicatio n rash Not available Not available 01/12/2025 80649 RxNorm Not Available [facility] External Data Service - prod 5 14:49:27 6664 Augmentin medicatio n diarrhea Not available Not available 09/02/20132013 40414 2 RxNorm FRIEDA Zhou MA [facility] 8 15:06:49 6665 No known allergy (situatio n) Not available Not available Not available Not available 09/02/20132011 35063 6003 SNOMED COMME NT: RECOR DED 11/01 10:34 AM BY SAL VARELA MA, ANNOT ATION /ADDE NDUM; Not Available [facility] 4 13:24:03 Medications Name Sig Start Date Stop Date Status Note LastModified by Organization Details LastModified Time [facility] sodium 10 mg tabs 08/03 [...] Available Not Available Not Available lithium carbonate er 300 mg tbcr 08/03 [...] 09/18/19 10 8:54AM BY TAO JUAREZ, OFFICE VISIT;[facility] Not Available Not Available Not Available Spiriva with [employer] r 18 mcg and inhalatio n capsules active Not Available Not Available Not Available carbamaze pine ER 200 mg capsule,e xtended release [id number] r TAKE 2 CAPSULES BY MOUTH TWICE A DAY 10/16 completed Not Available Not Available Not Available carbamaze pine ER 300 mg capsule,e xtended release [id number] r TAKE 1 CAPSULE BY MOUTH TWICE [...] DateTime 01/12/2025 160.02 cm FRIEDA Ramos MA [facility] 01/12/2025 15:00:02 Social History Question Answer Notes LastModified by Organizat ion Details LastModified Time Tobacco Smoking Status Never Smoker Brian prajapati MA [facility] 09/04/2013 15:53:32 Do You Have An Advance Directive? No Information not available 01/20/2022 Is Blood Transfusion Acceptable In An Emergency? Yes Information not available 10/16/2014 What Is Your Level Of Caffeine Consumption? Occasional Seldom Information not available 08/27/2020 How Much Tobacco Do You Chew? None Information not available 08/04/2019 What Type Of Diet Are You Following? REGULAR Eating Mostly Chicken And Fish [email or web address] Information not available 04/05/2022 Which Illicit Or [...] Take Precautions To Prevent Distracted Driving? Yes [email or web address] Information not available 10/16/2014 How Often Do You Need To Have Someone Help You When You Read Instructions, Pamphlets, Or Other Written Material From Your Doctor Or Pharmacy? Sometimes [email or web address] Information not available 10/16/2014 Have You Served In The ? No [email or web address] Information not available 12/22/2020 Have You Or Anyone In Your Household Had Any Of The Following Symptoms In The Last 14 Days: Sore Throat, Cough, Chills, Body Aches For Unknown Reasons, Shortness Of Breath For Unknown Reasons, Loss Of Smell, Loss Of Taste, Fever At Or Greater Than 100 Degrees Fahrenheit? No [email or web address] Information not available 08/18/2019 Are You Or Anyone In Your Household A Health Care Provider Or Emergency Responder? No [email or web address] Information not available 08/18/2019 To The Best [...] Gathering In The Last 10 Days? No [email or web address] Information not available 03/18/2020 What Was The Date Of Your Most Recent Tobacco Screening? 06/30/2024 [email or web address] Information not available 06/30/2024 How Many Children Do You Have? 0 Information not available 08/27/2020 What Is Your Relationship Status? Single Information not available 01/20/2022 Seat Belts Used Routinely Yes Information not available 01/20/2022 Are You Sexually Active? Yes Woman Partner [email or web address] Information not available 02/15/2015 Smoke Alarm In Home Yes Information not available 01/20/2022 At What Age Did You Start Smoking Tobacco? 1 [email or web address] Information not available 08/04/2019 How Much Tobacco Do You Smoke? No [email or web address] Information not available 08/04/2019 General Stress Level Medium Information not available 01/20/2022 Do You Use Sunscreen Routinely? Yes [email or web address] Information not available 10/16/2014 Sex: Unknown Functional Status Question Answer Note LastModified by Organizat ion Details LastModified Time What is your level of alcohol consumption? None Information not available 08/27/2020 Do you or have you ever used smokeless tobacco? Never used smokeless tobacco [email or web address] Information not available 08/04/2019 Are you currently employed? No [email or web address] Information not available 02/15/2015 Are you able to walk independently without assistance or assistive devices? [email or web address] Information not available 01/20/2022 Are you able to care for yourself independently? Yes [email or web address] Information not available 02/15/2015 What is your [...] Maternal Grandmother Carcinoma in situ of breast [email or web address] Not available 02/15 11:12:37 Maternal Grandfather Myocardial infarction [email or web address] Not available 01/20 11:12:37 Notes:No FH of [...] Recorded Time Tdap 6 completed FRIEDA Dexter, [facility] 01/20/2022 13:24:33 Influenza, split virus, quadrivalent, PF 5 completed Not Available [facility] 03/08/2019 02:22:02 pneumococcal polysaccharide PPV23 5 completed Not Available [facility] 03/08/2019 02:21:42 COVID-19, mRNA, LNP-S, PF, 30 mcg/0.3 mL dose 1 completed FRIEDA Dexter, [facility] 01/20/2022 13:24:02 COVID-19, mRNA, LNP-S, PF, 30 mcg/0.3 mL dose 1 completed FRIEDA Dexter, [facility] 01/20/2022 13:24:02 COVID-19, mRNA, LNP-S, PF, 30 mcg/0.3 mL dose 1 completed FRIEDA Dexter, [facility] 01/20/2022 13:24:02 COVID-19, mRNA, LNP-S, bivalent, PF, 30 mcg/0.3 mL dose 2 completed FRIEDA Dexter, [facility] 01/20/2022 13:24:33 Td (adult), 5 Lf tetanus toxoid, preservative free, adsorbed 4 completed FRIEDA Dexter, [facility] 01/20/2022 13:24:33 Influenza, MDCK, quadrivalent, PF 0 completed FRIEDA Dexter, [facility] 01/20/2022 13:24:33 [facility] 11:37:19 Influenza, split virus, quadrivalent, PF 3 completed FRIEDA French, [facility] 04/26/2023 14:40:16 Influenza, split virus, quadrivalent, PF 6 completed Not Available [facility] 03/08/2019 02:22:04 Influenza, split virus, quadrivalent, PF 7 completed Not Available [facility] 03/08/2019 02:22:11 Influenza, split virus, quadrivalent, PF 8 completed Not Available [facility] 03/08/2019 02:22:15 Influenza, split virus, trivalent, PF 4 completed Not Available [facility] 03/08/2019 02:21:57 Influenza, split virus, quadrivalent, PF 9 completed Not Available [facility] 03/08/2019 02:22:10 Influenza, split virus, quadrivalent, PF 1 completed [place] [facility]2020 11:24:47 Meningococcal MCV4O 6 completed Not Available [facility] 09/02/2013 13:58:38 Influenza, split virus, trivalent, preservative 7 completed Not Available [facility] 09/02/2013 13:58:38 Influenza, split virus, trivalent, preservative 8 completed Not Available [facility] 09/02/2013 13:58:38 Tdap 8 completed Not Available [facility] 09/02/2013 13:58:38 Influenza, split virus, trivalent, preservative 0 completed Not Available [facility] 09/02/2013 13:58:38 Influenza, split virus, trivalent, preservative 1 completed Not Available [facility] 09/02/2013 13:58:38 Influenza, split virus, trivalent, preservative 2 completed Not Available [facility] 09/02/2013 13:58:38 influenza, seasonal, intradermal, preservative free 3 completed Not Available [facility] 09/02/2013 13:58:38 Influenza, split virus, quadrivalent, PF 2 completed [place] dooley null, [facility] 12/01/2021 10:15:17 Influenza, split virus, trivalent, PF 4 completed JARVIS NGUYEN MD [address], [address], [facility] 12/21/2023 19:00:12 Past Encounters Encounter ID Performer Location Encounter Start Date Encounter Closed Date Diagnosis/Indication Diagnosis SNOMED-CT Code Diagnosis ICD10 Code Diagnosis IMO Codes Diagnosis Note [id number] Izaiah Prajapati MD [facility] [address] [address] 01/12/2025 14:49:03 01/12/2025 16:09:31 Cellulitis of head 573027665 H60.12 [id number] Infected psoriatic plaque behind the L. ear. Recom oral antibiotic s and mupirocin cream. Pt is starting new psoriasis treatment per Dr. Quintana. Psoriasis 9966925 L40.9 59943 see above. Health Concerns Section Related Observation LastModified by Organization Detai ls LastModified Time None Recorded Concern Status LastModified by Organization Details LastModified Time None Recorded Payers Encounter Date Sequence Insurance Name Policy Number Policy Scott Covered Member ID Scott Member ID Guarantor Name 01/12/2025 1 [place] [employer] Crystal Chapa [id number] Crystal Chapa 01/12/2025 2 [place] [facility] Crystal Chapa [id number] Crystal Chapa Notes Date Note Type Note [...] no erythema or discharge. Estrellita Pitt PA-C [address] [address], [place], [address], [facility] 01/12/2025 15:26:22 OBGyn Episode No OBEpisode recorded.
--- OUTSIDE RECORDS SUMMARY | 2025-01-26 22:21 | XMS_ITS | Data Portability ---
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 4 05:37:58 Blisters of multiple sites 791397680 Completed 201109/29/2013 RECORDED 02/19/20 12 1:39PM BY SHI BENOIT MA, ANNOTATI ON/ADDEN DUM Not Available [facility] 4 05:37:58 Herpetic gingivos tomatiti s 14936451 Completed 201109/29/2013 IMPRESSI ON: TX WITH DENAVIR; RECORDED 02/19/20 12 1:39PM BY SHI BENOIT MA, ANNOTATI ON/ADDEN DUM Not Available [facility] 4 05:37:58 Otalgia 94793232 Completed 201109/29/2013 IMPRESSI ON: X 3 DAYS, NO INFECTIO N, SUSPECT JAW JOINT INFLAMMA TION; RECORDED 02/19/20 12 1:40PM BY SHI BENOIT MA, ANNOTATI ON/ADDEN DUM Not Available [facility] 4 05:37:58 Pneumoni a [id number] Completed 201109/29/2013 IMPRESSI ON: IMPROVED ON LEVAQUIN , PREDNISO NE AND INHALERS IN PT WITH ASTHMA, WILL GET REPEAT CXT [facility] IN A WEEK,; RECORDED 02/19/20 12 1:40PM BY SHI BENOIT MA, KIKAATI ON/ADDEN DUM Not Available [facility] 4 05:37:59 Secondar y polycyth emia [id number] Completed 201109/29/2013 IMPRESSI ON: PT SEEN YEST FOR ATYPICAL ECCHYMOT IC LESIONS. LABS DONE AND HGB TRENDING UP. TO HEM/ONC FOR FURTHER ASSESSME NT. NOT A SMOKER. CASE DISCUSSE D WITH DR. AARON Ramsay; RECORDED 02/19/20 12 1:39PM BY SHI BENOIT MA, KIKAATI ON/ADDEN DUM Not Available [facility] 4 05:37:59 Right upper quadrant pain 147348253 Completed 201109/29/2013 IMPRESSI ON: THE ECCHYMOT IC [...] BENOIT MA, KIKAATI ON/ADDEN DUM Not Available [facility] 4 05:37:59 Sprain of shoulder and upper arm Completed 201109/29/2013 RECORDED 02/19/20 12 1:39PM BY SHI BENOIT MA, ANNOTATI ON/ADDEN DUM Not Available [facility] 4 05:37:59 Vaginiti s and vulvovag initis Completed 201109/29/2013 RECORDED 02/19/20 12 1:39PM BY SHI BENOIT MA, ANNOTATI ON/ADDEN DUM Not Available [facility] 4 05:37:59 Acute tonsilli tis [id number] Completed 201209/02/2013 IMPRESSI ON: NEG QUICK STREP; RECORDED 03/06/19 13 1:55PM BY NYDIA CHRISTIANSEN MA, ANNOTATI ON/ADDEN DUM Not Available [facility] 4 14:53:49 Acute tonsilli tis 63373195 Completed 201209/29/2013 IMPRESSI ON: NEG QUICK STREP; RECORDED 03/06/19 13 1:55PM BY NYDIA CHRISTIANSEN MA, ANNOTATI ON/ADDEN DUM Not Available [facility] 4 05:37:59 Patient status finding [id number] Completed 201209/02/2013 RECORDED 06/06/19 13 11:40AM BY NYDIA CHRISTIANSEN MA, ANNOTATI ON/ADDEN DUM FRIEDA French [facility] 7 15:01:47 Patient status finding [id number] Completed 201209/29/2013 RECORDED 06/06/19 13 11:40AM BY NYDIA CHRISTIANSEN MA, ANNOTATI ON/ADDEN DUM FRIEDA French, [facility] 7 15:01:47 Backache [id number] Completed 201209/02/2013 IMPRESSI ON: CALL IN 1 WEEK IF NOT IMPROVIN G. WARNED OF DROWSINE SS WITH VICODIN AND FLEXERIL ; RECORDED 09/25/19 13 4:19PM BY NYDIA CHRISTIANSEN MA, KIKAATI ON/ADDEN DUM Idalmis prajapati [facility] 7 16:11:29 Screenin g for malignan t neoplasm of cervix Completed 201209/02/2013 RECORDED 09/25/19 13 4:19PM BY NYDIA CHRISTIANSEN MA, ANNOTATI ON/ADDEN DUM Not Available [facility] 4 14:53:45 Dysmenor rocael [id number] Completed 201209/02/2013 IMPRESSI ON: NL EXAM PAP AND CXS TODAY; RECORDED 09/25/19 13 4:19PM BY NYDIA CHRISTIANSEN MA, ANNOTATI ON/ADDEN DUM Not Available [facility] 4 14:53:46 Fall on or from stairs or steps Completed 201209/02/2013 RECORDED 09/25/19 13 4:19PM BY NYDIA CHRISTIANSEN MA, ANNOTATI ON/ADDEN DUM Not Available [facility] 4 14:53:46 Pain in limb 24305928 Completed 201209/02/2013 IMPRESSI ON: LIKELY CONTUSIO N WILL MAKE SURE NO FRACTURE ; RECORDED 09/25/19 13 4:19PM BY NYDIA CHRISTIANSEN MA, ANNOTATI ON/ADDEN DUM Not Available [facility] 4 14:53:48 Disorder of skin and/or subcutan eous tissue 61144477 Completed 201209/02/2013 IMPRESSI ON: SKIN OF VULVA WITH 6 REDDISH LESIONS SEEMS LIKE VASCULAR LESIONS BUT WILL HAVE DERM CHECK OUT; RECORDED 09/25/19 13 4:19PM BY NYDIA CHRISTIANSEN MA, ANNOTATI ON/ADDEN DUM Not Available [facility] 4 14:53:48 Backache [id number] Completed 201209/29/2013 IMPRESSI ON: CALL IN 1 WEEK IF NOT IMPROVIN G. WARNED OF DROWSINE SS WITH VICODIN AND FLEXERIL ; RECORDED 09/25/19 13 4:19PM BY NYDIA CHRISTIANSEN MA, ANNOTATI ON/ADDEN DUM Idalmis prajapati MA - [facility] 7 16:11:29 Screenin g for malignan t neoplasm of cervix Completed 201209/29/2013 RECORDED 09/25/19 13 4:19PM BY NYDIA CHRISTIANSEN MA, KIKAATI ON/ADDEN DUM Not Available [facility] 4 05:37:58 Dysmenor rocael [id number] Completed 201209/29/2013 IMPRESSI ON: NL EXAM PAP AND CXS TODAY; RECORDED 09/25/19 13 4:19PM BY NYDIA CHRISTIANSEN MA, KIKAATI ON/ADDEN DUM Not Available [facility] 4 05:37:58 Fall on or from stairs or steps Completed 201209/29/2013 RECORDED 09/25/19 13 4:19PM BY NYDIA CHRISTIANSEN MA, MELITON ON/ADDEN DUM Not Available [facility] 4 05:37:58 Pain in limb 83347076 Completed 201209/29/2013 IMPRESSI ON: LIKELY CONTUSIO N WILL MAKE SURE NO FRACTURE ; RECORDED 09/25/19 13 4:19PM BY NYDIA CHRISTIANSEN MA, ANNOTATI ON/ADDEN DUM Not Available [facility] 4 05:37:59 Disorder of skin and/or subcutan eous tissue 54856852 Completed 201209/29/2013 IMPRESSI ON: SKIN OF VULVA WITH 6 REDDISH LESIONS SEEMS LIKE VASCULAR LESIONS BUT WILL HAVE DERM CHECK OUT; RECORDED 09/25/19 13 4:19PM BY NYDIA CHRISTIANSEN MA, KIKAATI ON/ADDEN DUM Not Available [facility] 4 05:37:59 Influenz a vaccine needed 84984518678 06 Completed 201209/02/2013 RECORDED 10/26/19 13 2:51PM BY JUDIE BOTELLO, OFFICE VISIT Not Available [facility] 4 14:53:46 Influenz a vaccine needed [id number] 06 Completed 201209/29/2013 RECORDED 10/26/19 13 2:51PM BY JUDIE BOTELLO, OFFICE VISIT Not Available [facility] 4 05:37:58 Diarrhea 98791773 Completed 201209/02/2013 IMPRESSI ON: NEW PROBLEM, PT WILL SEE DR MARION FOR EVAL,; RECORDED 01/11/20 13 10:05AM BY SHI BENOIT MA, ANNOTATI ON/ADDEN DUM Not Available [facility] 4 14:53:45 Eruption [id number] Completed 201209/02/2013 IMPRESSI ON: FROM PICKING HER HEAD WITH NERVES, NO INFECTIO N, TREAT WITH CREAM; RECORDED 01/11/20 13 10:05AM BY SHI BENOIT MA, KIKAATI ON/ADDEN DUM FRIEDA French, [facility] 7 15:02:11 Diarrhea 25357892 Completed 201209/29/2013 IMPRESSI ON: NEW PROBLEM, PT WILL SEE DR MARION FOR EVAL,; RECORDED 01/11/20 13 10:05AM BY SHI BENOIT MA, ANNOTATI ON/ADDEN DUM Not Available [facility] 4 05:37:58 Eruption [id number] Completed 201209/29/2013 IMPRESSI ON: FROM PICKING HER HEAD WITH NERVES, NO INFECTIO N, TREAT WITH CREAM; RECORDED 01/11/20 13 10:05AM BY SHI BENOIT MA, ANNOTATI ON/ADDEN DUM FRIEDA French, [facility] 7 15:02:11 Anemia 490113269 Completed 201303/30/2016 RECORDED 06/21/19 14 2:38PM BY SHI BENOIT MA, OFFICE VISIT Idalmis prajapati [facility] 7 16:11:49 Alopecia 99836240 Completed 201303/30/2016 RECORDED 06/21/19 14 2:38PM BY SHI BENOIT MA, OFFICE VISIT Idalmis prajapati [facility] 7 16:12:02 Anxiety state 286161895 Active 2013 FRIEDA Goyal, [facility] 8 15:03:46 Asthma 585484168 Completed 201310/02/2019 Idalmis prajapati, [facility] 0 10:11:13 Bipolar I disorder 858927025 Active 2013 FRIEDA Goyal, [facility] 8 15:03:43 Disorder of coccyx 92793853 Completed 201303/30/2016 IMPRESSI ON: PAIN FORM FALL NO XRAY NEEDED, TIME AND MOTRIN; RECORDED 06/21/19 14 2:38PM BY SHI BENOIT MA, OFFICE VISIT Idalmis prajapati [facility] 7 16:12:05 History of depressi on 659621700 Completed 201309/02/2013 RECORDED 06/21/19 14 2:38PM BY SHI BENOIT MA, ANNOTATI ON/ADDEN DUM Not Available [facility] 4 14:53:45 Adult health examinat ion Completed 201309/02/2013 IMPRESSI ON: NOT DUE FOR A PAP, BREAST EXAM TODAY, INCREASE EXERCISE ; RECORDED 06/21/19 14 2:37PM BY SHI BENOIT MA, ANNOTATI ON/ADDEN DUM Not Available [facility] 4 14:53:46 Pain of hip region 45059084 Completed 201303/30/2016 IMPRESSI ON: FELL 10 DAYS AGO, PAIN IN BILATERA L HIPS, WILL GET XRAY TO RULE OUT FRACTURE THOUGH UNLIKELY MOTRINA ND REST; RECORDED 06/21/19 14 2:38PM BY SHI BENOIT MA, OFFICE VISIT Idalmis prajapati [facility] 7 16:11:59 Impacted cerumen 80441269 Completed 201303/29/2016 IMPRESSI ON: EAR LAVAGE PERFORME D, CERUMEN REMOVED; RECORDED 06/21/19 14 4:08PM BY AMARILIS LE, OFFICE VISIT FRIEDA French, [facility] 7 15:01:56 Insomnia 996175598 Completed 201303/30/2016 IMPRESSI ON: BETTER MEDS HELPING; RECORDED 06/21/19 14 2:38PM BY SHI BENOIT MA, OFFICE VISIT Idalmis prajapati [facility] 7 16:11:37 Low back pain 515057184 Completed 201309/02/2013 IMPRESSI ON: FOR MONTHS, HX OF A FEW FALLS, PT TO SET UP PT ORDER TO PT TODAY; RECORDED 06/21/19 14 2:38PM BY SHI BENOIT MA, ANNOTATI ON/ADDEN DUM FRIEDA French, [facility] 7 15:02:14 Single major depressi ve episode Completed 201311/23/2016 IMPRESSI ON: ON MEDS BUT DEPRESSI ON IS ACTIVE, CONTINUE MEDS AND PSYCHIAT RY AND COUNSELI NG VISITS; RECORDED 06/21/19 14 2:38PM BY SHI BENOIT MA, OFFICE VISIT Idalmis prajapati [facility] 7 13:39:20 Neoplasm of uncertai n behavior of skin 47811199 Completed 201303/30/2016 IMPRESSI ON: NODULE IN EAR WITH TELENGIE CTASIA CONCERNI NG FOR MALIGNAN CY. ENT TO FURTHER ASSESS; RECORDED 06/21/19 14 4:06PM BY AMARILIS LE, OFFICE VISIT Idalmis prajapati [facility] 7 16:12:10 Patient status finding [id number] Completed 201303/29/2016 RECORDED 06/21/19 14 2:38PM BY SHI BENOIT MA, OFFICE VISIT FRIEDA French [facility] 7 15:01:47 Otitis media 82976475 Completed 201303/29/2016 IMPRESSI ON: UNCLEAR IF REALLY INFECTED . SHE WILL DO FLONASE AND MUCINEX- D FOR 2 DAYS. IF NOT BETTER, SHE WILL START ABX; RECORDED 06/21/19 14 4:08PM BY AMARILIS LE, OFFICE VISIT FRIEDA French, [facility] 7 15:02:45 History of psychiat chiki disorder 792124108 Completed 201303/30/2016 RECORDED 06/21/19 14 2:38PM BY SHI BENOIT MA, OFFICE VISIT Idalmis NyTorie lathamenzwisam prajapati [facility] 7 16:11:26 Acute upper respirat ory infectio n 49936186 Completed 201303/29/2016 RECORDED 06/21/19 14 3:30PM BY AMARILIS LE, OFFICE VISIT FRIEDA French, [facility] 7 15:02:38 History of depressi on 673387315 Completed 201309/29/2013 RECORDED 06/21/19 14 2:38PM BY SHI BENOIT MA, ANNOTATI ON/ADDEN DUM Not Available [facility] 4 05:37:58 Adult health examinat ion Completed 201309/29/2013 IMPRESSI ON: NOT DUE FOR A PAP, BREAST EXAM TODAY, INCREASE EXERCISE ; RECORDED 06/21/19 14 2:37PM BY SHI BENOIT MA ANNOTMANAN ON/ADDEN DUM Not Available [facility] 4 05:37:58 Low back pain 771884608 Completed 201309/29/2013 IMPRESSI ON: FOR MONTHS, HX OF A FEW FALLS, PT TO SET UP PT ORDER TO PT TODAY; RECORDED 06/21/19 14 2:38PM BY SHI BENOIT MA, ANNOTATI ON/ADDEN DUM FRIEDA French, [facility] 7 15:02:14 Dysfunct ional uterine bleeding Active 2016 FRIEDA Goyal, [facility] 8 15:03:51 Hypothyr oidism 68806769 Active 2017 FRIEDA Goyal, [facility] 8 15:04:12 History of intestin al infectio n caused by Clostrid ioides difficil e 07583545854 9101 Completed 201704/10/2023 JARVIS NGUYEN MD [address] [address], [facility] [place], [address] , [facility] 4 08:20:32 Mild intermit tent asthma 623197219 Active 2019 Idalmis nicolas null, [facility] 0 10:09:22 Eczema 90467278 Active 2020 Judie Botello MA null, [facility] 1 15:05:27 Psoriasi s 0107757 Active 2022 Dominga Jameson null, [facility] 3 07:52:52 Irritabl e bowel syndrome with diarrhea 441483344 Active 2022 Dominga Jameson [facility], [facility] 3 07:53:26 Problem Notes None recorded. Procedures Surgical History Date Name Laterality Status Provider Name and Address Organization Details Recorded Time 10/17/19 25 Cerumen Removal completed JARVIS NGUYEN MD [address] [address], [place], [address], [facility] [place]/16/2024 14:35:12 05/16/19 25 Most Recent Mammogram completed Katharina Alvarez [facility] 05/16/2024 12:53:24 05/16/19 25 Mammogram screening completed Katharina Alvarez [facility] 05/16/2024 12:53:06 07/15/19 23 Dressing Change completed JARVIS NGUYEN MD [address] [address], [place], [address], [facility] [place]/14/2022 07:44:40 06/20/19 23 Suture/Staple removal completed JARVIS NGUYEN MD [address] [address], [place], [address], [facility] 06/19/2022 10:34:36 06/17/19 23 Suture/Staple removal completed JARVIS NGUYEN MD [address], [place], [address], [facility] 06/15/2022 09:30:10 12/21/19 21 Date of Last Pap Smear completed Judie Botello [facility] 12/22/2020 11:07:59 05/03/19 19 Mini-Cog Test completed Judie Botello [facility] 05/02/2018 08:44:28 07/25/19 17 Mini-Cog Test completed Judie Botello [facility] 07/24/2016 14:56:47 10/01/19 16 Suture/Staple removal completed Estrellita Pitt PA-C [address], [place], [address], [facility] [place]/01/2015 14:56:47 Tonsillectomy completed Shi Benoit [facility] 09/04/2013 15:46:02 Imaging Results None recorded. Procedure Notes None recorded. Medical Equipment None Reported. Allergies Allergen ID Allergen Name Allergen Category Reaction Reaction Severity Criticality Documentation Date Start Date Code Code System Note Provider Name and Address Organization Details Recorded Time 22879 Elimite medicatio n rash Not available Not available 10/22/2013 86617 5 RxNorm Idalmis prajapati [facility] 4 11:49:40 34603 amoxicill in / clavulana te medicatio n diarrhea Not available Not available 01/12/20252013 16992 RxNorm Not Available jose - External Data [employer] - prod 5 14:49:27 50261 permethri n medicatio n rash Not available Not available 01/12/2025 63715 RxNorm Not Available jose [employer] External [employer] - prod 14:49:27 6664 Augmentin medicatio n diarrhea Not available Not available 09/02/20132013 46994 2 RxNorm BrendanFRIEDA Baptiste MA - [facility] 8 15:06:49 6665 No known allergy (situatio n) Not available Not available Not available Not available 09/02/20132011 49967 6003 SNOMED COMME NT: RECOR DED 11/01 10:34 AM BY SAL GUTHRIE MA, KIKA ATION /ADDE NDUM; Not Available [facility] 4 13:24:03 Medications Name Sig Start Date [...] RECORDED 06/25/19 10 1:45PM BY HEATH SMITH, [facility]SLIM [facility]ANN[facility]; Not Available Not [...] completed RECORDED 09/18/19 10 8:54AM BY TAO JUARZE, OFFICE VISIT;[facility] Not Available Not Available Not Available Spiriva with [employer] r 18 mcg and inhalatio n capsules active Not Available Not Available Not Available carbamaze pine ER 200 mg capsule,e xtended release [id number] r TAKE 2 CAPSULES BY MOUTH TWICE A DAY 10/16 completed Not Available Not Available Not Available carbamaze pine ER 300 mg capsule,e xtended release [id number] r TAKE 1 CAPSULE BY MOUTH TWICE [...] OFFICE VISIT;TH IS ORDER DISCONTI NUED PER [facility]. Not Available Not Available Not Available [...] Updated DateTime 5 160.02 cm 27.5 kg/m2 79034.8 2 g 137 /min 97 % 98 [degF] 114/83 mm[Hg] Princess honeycutt MA [facility] 5 09:06:33 Date Recorded Body height Body mass index (BMI) Body weight Heart rate Oxygen saturation Body temperature Systolic And Diastolic Provider Name and Address Organization Details Last Updated DateTime 5 160.02 cm 28.5 kg/m2 50332.3 7 g 101 /min 98 % 98.1 [degF] 114/82 mm[Hg] Brianna Norwood [facility] 5 14:07:16 Date Recorded Body height Body mass index (BMI) Body weight Heart rate Oxygen saturation Body temperature Systolic And Diastolic Provider Name and Address Organization Details Last Updated DateTime 5 160.02 cm 28.2 kg/m2 09337.1 9 g 104 /min 97 % 98.3 [degF] 113/82 mm[Hg] Brianna Norwood [facility] 5 14:47:39 Date Recorded Body height Provider Name an d Address Organization Details Last Updated DateTime 01/12/2025 160.02 cm Brianna Norwood MA [facility] 01/12/2025 15:00:02 Social History Question Answer Notes LastModified by Organizat ion Details LastModified Time Tobacco Smoking Status Never Smoker Shi prajapati [facility] 09/04/2013 15:53:32 Do You Have An Advance Directive? No Information not available 01/20/2022 Is Blood Transfusion Acceptable In An Emergency? Yes [email or web address] Information not available 10/16/2014 What Is Your Level Of Caffeine Consumption? Occasional Seldom Information not available 08/27/2020 How Much Tobacco Do You Chew? None [email or web address] Information not available 08/04/2019 What Type Of Diet Are You Following? REGULAR Eating Mostly Chicken And Fish [email or web address] Information not available 04/05/2022 Which Illicit Or [...] Take Precautions To Prevent Distracted Driving? Yes [email or web address] Information not available 10/16/2014 How Often Do You Need To Have Someone Help You When You Read Instructions, Pamphlets, Or Other Written Material From Your Doctor Or Pharmacy? Sometimes [email or web address] Information not available 10/16/2014 Have You Served In The ? No [email or web address] Information not available 12/22/2020 Have You Or Anyone In Your Household Had Any Of The Following Symptoms In The Last 14 Days: Sore Throat, Cough, Chills, Body Aches For Unknown Reasons, Shortness Of Breath For Unknown Reasons, Loss Of Smell, Loss Of Taste, Fever At Or Greater Than 100 Degrees Fahrenheit? No [email or web address] Information not available 08/18/2019 Are You Or Anyone In Your Household A Health Care Provider Or Emergency Responder? No Information not available 08/18/2019 To The Best [...] OUD But Is Possibly At Risk. No [email or web address] Information not available 12/22/2020 Have You Recently Traveled To A COVID-19 High Risk Area Or Gathering In The Last 10 Days? No [email or web address] Information not available 03/18/2020 What Was The Date Of Your Most Recent Tobacco Screening? 06/30/2024 [email or web address] Information not available 06/30/2024 How Many Children Do You Have? 0 Information not available 08/27/2020 What Is Your Relationship Status? Single Information not available 01/20/2022 Seat Belts Used Routinely Yes Information not available 01/20/2022 Are You Sexually Active? Yes Woman Partner [email or web address] Information not available 02/15/2015 Smoke Alarm In Home Yes Information not available 01/20/2022 At What Age Did You Start Smoking Tobacco? 1 [email or web address] Information not available 08/04/2019 How Much Tobacco Do You Smoke? No [email or web address] Information not available 08/04/2019 General Stress Level Medium Information not available 01/20/2022 Do You Use Sunscreen Routinely? Yes [email or web address] Information not available 10/16/2014 Sex: Unknown Functional Status Question Answer Note LastModified by Organizat ion Details LastModified Time What is your level of alcohol consumption? None Information not available 08/27/2020 Do you or have you ever used smokeless tobacco? Never used smokeless tobacco Information not available 08/04/2019 Are you currently employed? No [email or web address] Information not available 02/15/2015 Are you able to walk independently without assistance or assistive devices? [email or web address] Information not available 01/20/2022 Are you able to care for yourself independently? Yes Information not available 02/15/2015 What is your [...] Time Mother Carcinoma in situ of breast [email or web address] Not available 02/15 11:12:37 Maternal Grandmother Carcinoma in situ of breast [email or web address] Not available 02/15 11:12:37 Maternal Grandfather Myocardial infarction [email or web address] Not available 01/20 11:12:37 Notes:No FH of [...] Details Recorded Time Tdap 6 [facility] 13:24:33 Influenza, split virus, quadrivalent, PF 5 completed Not Available [facility] 03/08/2019 02:22:02 pneumococcal polysaccharide PPV23 5 completed Not Available [facility] 03/08/2019 02:21:42 COVID-19, mRNA, LNP-S, PF, 30 mcg/0.3 mL dose 1 completed FRIEDA Dexter [facility] 01/20/2022 13:24:02 COVID-19, mRNA, LNP-S, PF, 30 mcg/0.3 mL dose 1 [facility] 13:24:02 COVID-19, mRNA, LNP-S, PF, 30 mcg/0.3 mL dose 1 completed FRIEDA Dexter, [facility] 01/20/2022 13:24:02 COVID-19, mRNA, LNP-S, bivalent, PF, 30 mcg/0.3 mL dose 2 completed FRIEDA Dexter, [facility] 01/20/2022 13:24:33 Td (adult), 5 Lf tetanus toxoid, preservative free, adsorbed 4 completed FRIEDA Dexter, [facility] 01/20/2022 13:24:33 Influenza, MDCK, quadrivalent, PF 0 completed FRIEDA Dexter, [facility] 01/20/2022 13:24:33 Tdap 3 completed FRIEDA French, [facility] 08/17/2022 11:37:19 Influenza, split virus, quadrivalent, PF 3 completed FRIEDA French, [facility] 04/26/2023 14:40:16 Influenza, split virus, quadrivalent, PF 6 completed Not Available [facility] 03/08/2019 02:22:04 Influenza, split virus, quadrivalent, PF 7 completed Not Available [facility] 03/08/2019 02:22:11 Influenza, split virus, quadrivalent, PF 8 completed Not Available [facility] 03/08/2019 02:22:15 Influenza, split virus, trivalent, PF 4 completed Not Available [facility] 03/08/2019 02:21:57 Influenza, split virus, quadrivalent, PF 9 completed Not Available [facility] 03/08/2019 02:22:10 Influenza, split virus, quadrivalent, PF 1 completed Idalmis prajapati, [facility] 12/22/2020 11:24:47 Meningococcal MCV4O 6 completed Not Available [facility] 09/02/2013 13:58:38 Influenza, split virus, trivalent, preservative 7 completed Not Available [facility] 09/02/2013 13:58:38 Influenza, split virus, trivalent, preservative 8 completed Not Available [facility] 09/02/2013 13:58:38 Tdap 8 completed Not Available [facility] 09/02/2013 13:58:38 Influenza, split virus, trivalent, preservative 0 completed Not Available [facility] 09/02/2013 13:58:38 Influenza, split virus, trivalent, preservative 1 completed Not Available [facility] 09/02/2013 13:58:38 Influenza, split virus, trivalent, preservative 2 completed Not Available [facility] 09/02/2013 13:58:38 influenza, seasonal, intradermal, preservative free 3 completed Not Available [facility] 09/02/2013 13:58:38 Influenza, split virus, quadrivalent, PF 2 completed Idalmis dooley null, [facility] 12/01/2021 10:15:17 Influenza, split virus, trivalent, PF 4 completed JARVIS NGUYEN MD [address], [address], [facility] [place]/21/[place]23 19:00:12 Past Encounters Encounter ID Performer Location Encounter Start Date Encounter Closed Date Diagnosis/Indication Diagnosis SNOMED-CT Code Diagnosis ICD10 Code Diagnosis IMO Codes Diagnosis Note [id number] ALEX Maya Main Office [address] [address] 09/04/2013 15:31:37 09/04/2013 17:14:27 Anxiety 53512031 Chest pain 46196042 Abdominal pain 44987897 [id number] [employer] [place] [address] [place] [address], [address] [place] [address] 04/06/2006 00:00:00 [id number] [employer] erce [address] [facility] [address],[place] [address] [place] [address] 07/20/2005 00:00:00 [id number] [employer] [address] [address] [place] [address] 08/09/2005 00:00:00 [id number] auto[employer] erce [address] [facility] [address],[place] [address] [place] [address] 08/24/2005 00:00:00 [id number] auto[employer] erce [address] [facility],[place] [address] [place] [address] 07/04/2006 00:00:00 [id number] auto[employer] erce [address] [facility] [address],[place] [address] [place] [address] 07/11/2006 00:00:00 [id number] auto[employer] erce [address] [facility],[place] [address] [place] [address] 09/18/2006 00:00:00 [id number] auto[employer] erce [address] [facility],[place] [address] [place] [address] 12/17/2006 00:00:00 [id number] auto[employer] erce [address] [facility],[place] [address] [place] [address] 12/24/2006 00:00:00 [id number] autoEComm erce [address] [facility],[place] [address] [place] [address] 03/20/2007 00:00:00 [id number] auto[employer] erce [address] [facility],[place] [address] [place] [address] 06/14/2007 00:00:00 [id number] auto[employer]Comm erce [address] [facility],[place] [address] [place] [address] 07/04/2007 00:00:00 [id number] auto[employer] erce [address] [facility],[place] [address] [place] [address] 01/09/2008 00:00:00 [id number] autoEComm erce [address] [facility] [address],[place] [address] [place] [address] 05/29/2008 00:00:00 [id number] auto[employer] erce [address] [address] [place] [address] 06/18/2008 00:00:00 [id number] auto[employer] erce [address] [address] [place] [address] 09/24/2008 00:00:00 [id number] auto[employer] erce [address] [address] [place] [address] 10/05/2008 00:00:00 [id number] autoEComm erce [address] [address] [place] [address] 11/26/2008 00:00:00 [id number] autoEComm erce [address] [facility] [address],[place] [address] [place] [address] 01/13/2009 00:00:00 [id number] auto[employer] erce [address] [facility] [address],[place] [address] [place] [address] 05/13/2009 00:00:00 [id number] autoEComm erce [address] [facility],[place] [address] [place] [address] 06/16/2009 00:00:00 [id number] autoEComm erce [address] [facility] [address],[place] [address] [place] [address] 07/26/2009 00:00:00 [id number] autoEComm erce [address] [facility] [address],[place] [address] [place] [address] 09/17/2009 00:00:00 [id number] autoEComm erce [address] [facility] [address],[place] [address] [place] [address] 01/05/2010 00:00:00 [id number] autoEComm erce [address],[place] [address] [place] [address] 01/14/2010 00:00:00 [id number] autoEComm erce [address] [facility],[place] [address] [place] [address] 02/17/2010 00:00:00 [id number] auto[employer]Comm erce [address],[place] [address] [place] [address] 06/29/2010 00:00:00 [id number] auto[employer]Comm erce [address],[place] [address] [place] [address] 07/27/2010 00:00:00 [id number] auto[employer]Comm erce [address],[place] [address] [place] [address] 12/01/2010 00:00:00 [id number] autoEComm erce [address] [address] [place] [address] 12/19/2010 00:00:00 [id number] autoEComm erce [address] [facility] [address],[place] [address] [place] [address] 01/11/2011 00:00:00 [id number] autoEComm erce [address] [facility] [address],[place] [address] [place] [address] 01/18/2011 00:00:00 [id number] auto[employer] erce [address] [address] [place] [address] 01/24/2011 00:00:00 [id number] autoEComm erce [address] [facility] [address],[place] [address] [place] [address] 02/27/2011 00:00:00 [id number] autoEComm erce [address] [facility],[place] [address] [place] [address] 07/19/2011 00:00:00 [id number] autoEComm erce [address] [facility] [address],[place] [address] [place] [address] 08/14/2011 00:00:00 [id number] autoEComm erce [address],[place] [address] [place] [address] 08/18/2011 00:00:00 [id number] autoEComm erce [address] [facility] [address],[place] [address] [place] [address] 10/24/2011 00:00:00 [id number] autoEComm erce [address],[place] [address] [place] [address] 11/02/2011 00:00:00 [id number] autoEComm erce [address],[place] [address] [place] [address] 02/19/2012 00:00:00 [id number] autoEComm erce [address],[place] [address] [place] [address] 03/06/2012 00:00:00 [id number] autoEComm erce [address],[place] [address] [place] [address] 06/05/2012 00:00:00 [id number] autoEComm erce [address],[place] [address] [place] [address] 06/10/2012 00:00:00 [id number] autoEComm erce [address],[place] [address] [place] [address] 06/28/2012 00:00:00 [id number] autoEComm erce [address],[place] [address] [place] [address] 09/24/2012 00:00:00 [id number] autoEComm erce [address],[place] [address] [place] [address] 10/25/2012 00:00:00 [id number] autoEComm erce [address],[place] [address] [place] [address] 01/10/2013 00:00:00 [id number] autoEComm erce [address],[place] [address] [place] [address] 01/24/2013 00:00:00 [id number] autoEComm erce [address],[place] [address] [place] [address] 2013 00:00:00 [id number] autoEComm erce [address],[place] [address] [place] [address] 06/20/2013 00:00:00 [id number] ALEX Le Main Office [address] [place] [address] 10/14/2013 14:06:23 10/14/2013 14:56:05 Infestation by Sarcoptes scabiei elle hominis [phone] call if does not improve after second treatment in a week [id number] Idalmis nicolas MD Main Office [address] [place] [address] 10/16/2013 13:38:05 10/16/2013 14:08:14 Asthma 394036695 well cotnrolled continue meds Bipolar I disorder 825158680 on meds and in counslei Disorder of coccyx 28292547 healing, hx of a fall Infestatio n by Sarcoptes scabiei elle hominis [id number] did tx and laundry, pt is crying over having scabies, reasoned with her aobut a self limited event, she calmed down by the time she left and has her therapist for supprt [id number] Idalmis nicolas MD Main Office [address] [place] [address] 10/22/2013 10:56:55 10/22/2013 11:43:54 Eruption 879558105 severe allergic reaction to elimite, pt to finish medrol dose pack, use benadryl at night adn try motrin for the pain Bipolar I disorder 367800280 on meds and in counsleing , pt is seeing ehr therapist today,she is coping better than the other night when she went to the ER nad 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 Infestatio n by Sarcoptes scabiei elle hominis [id number] pt treated herself with elimite 2 tiems a week apart, she has a reaction to the elimite. she is on the last 2 days of the medrol dose pack and doing well, in the past she had had joe with prednisone but doing better this time. [id number] Idalmis nicolas MD Main Office [address]40 [facility] [address] [place] [address] 12/03/2013 08:44:24 12/03/2013 09:35:46 Bipolar I disorder 878544789 pt is feeling very depressed, states she [...] not want to complicate anything today Eruption 743041153 very faint, pt is very nervous about [...] days to help if possible drug related. [id number] ALEX Maya Main Office [address] [address] 12/10/2013 16:23:48 12/10/2013 16:55:47 Needs influenza immunization 946986215 Bipolar I disorder 335281221 Patient hadher meds changed on Sunday by her prescriber and has seen her therapist since last visit 12/03. She does not feel SI/HI, mood is better. Eruption 145736125 Saw shona m on Sunday who prescribed cream for her rash, it is improving and pt feels better. [id number] Idalmis nicolas MD Main Office [address] [place] [address] 06/10/2014 15:24:10 06/10/2014 16:08:41 Bipolar I disorder 339455442 on meds and feels they are helping. is working with therapist on maybe volunteeri ng. Asthma 487462906 a bit of a flare, was put on steroids last month, continue meds. [id number] Idalmis nicolas MD Main Office [address] [place] [address] 10/16/2014 10:41:58 10/16/2014 11:34:30 Bipolar I disorder 327197524 on meds and feels they are helping. is working with therapist on maybe volunteeri ng. Anxiety 44076010 Asthma 271925736 asthma is controlled . Backache 360252934 Needs infl uenza immunization 813401448 Eruption 401656238 looks l brigid sun reaction, use otc hydrocorti sone and lotion [id number] Idalmis nicolas MD Main Office [address] [facility] [address] [place] [address] 02/15/2015 10:56:10 02/15/2015 11:53:33 Adult health examination 343205129 Z00.00 pap next year, will add more exercise. Bipolar I disorder 95189 6008 F31.9 on meds and feels they are helping. is working with therapist and is volunteeri . Administra tion of pneumococcal vaccine 70595570 Z23 Asthma 802669005 J45.90 9 asthma is controlled . will get pneumovax today, never had [id number] Josee Casillas MD Main Office [address] [place] [place] [address] [place] [address] 07/09/2015 09:56:30 07/09/2015 10:35:29 Pain in throat 197065735 R07.0 rapid strep is negative. Viral infection. Advised NSAIDs or tylenol, fluids and rest. [id number] Idalmis nicolas MD Main Office [address] [address] [place] [address] 08/16/2015 14:51:18 08/16/2015 15:18:13 Asthma 909685954 J45.909 asthma is controlled Bipolar I disorder 81725 6008 F31.9 just finished partial hospitaliz ation, continue meds nad therapy Sciatica 40202686 M54.31 into right calf, positive straight leg raise, pt to see PT Low back pain 574643906 M54.5 PT referral, flexeril for night if spasms [id number] Idalmis nicolas MD Main Office [address] [address] [place] [address] 09/09/2015 09:14:35 09/09/2015 10:18:31 Impacted cerumen 62230941 H61.23 soaked and lavaged without problems Pain in lower limb 42422 006 M79.604 spasm, pt to try soma and exercise and stretch [id number] Estrellita Pitt PA-C Main Office [address] [address] [place] [address] 09/24/2015 13:53:33 09/24/2015 15:00:06 Infection of toe 373663612 L08.9 Start Abx as directed. Dressing changes daily , apply topical Abx as well. Laceration of toe 507827 004 S91.119A Remove sutures as scheduled next week. [id number] Estrellita Pitt PA-C Main Office [address] [address] [place] [address] 09/29/2015 08:38:23 09/29/2015 09:42:03 Infection of toe 446176437 L08.9 Switch from Keflex to Bactrim DS BID for 10 days. Wound culture taken. Recheck in 3-4 days and remove sutures. [id number] Estrellita Pitt PA-C Main Office [address] [address] [place] [address] 10/01/2015 08:45:49 10/01/2015 09:23:21 Laceration of toe 711806259 S91.119A 3 sutures removed w/o significan t discomfort . Pt. is advised to keep wound covered until full closure and scab comes off. Infection of toe 8757921 06 L08.9 Continue Bactrim DS as directed. Check on wound culture results. F/u prn. [id number] Idalmis nicolas MD Main Office [address] [address] [place] [address] 10/21/2015 12:42:29 10/21/2015 13:28:14 Slurred speech 306856813 R47.81 I viewed her video on her phone, unclear, she denies any substances , will get US and Ct to rule out any CVA/bleed but very unlikely, if it recures pt was told to go to ER, Headache 48110881 R51 mild, only a day or 2, not there with slurred speecha dn very mild [id number] Idalmis nicolas MD Main Office [address] [address] [place] [address] 11/25/2015 10:41:59 11/25/2015 11:44:21 Slurred speech 806978999 R47.[address] of head and carotid US Influenza vaccine needed 1798949044 106 Z23 Asthma 807483252 J45.90 9 asthma is controlled .she was followed by Eddie Haywood but she just retired, was on Brevo inhaler but stopped it. Is on singulair and proair prn. Bipolar I disorder 30191 6008 F31.9 is on meds, thinks she gained weight due to stress eating. continue meds [id number] Estrellita Pitt PA-C Main Office [address] [address] 12/10/2015 13:49:46 12/10/2015 14:57:55 Candidiasis of mouth 67991839 B37.0 [id number] Idalmis nicolas MD Main Office [address] [address] 03/29/2016 15:00:02 03/29/2016 15:46:19 Asthma 812043893 J45.909 asthma is controlled . continue meds Bipolar I disorder 40893 6008 F31.9 is on meds, mood is stable, volunteeri ng which is good for her, just out of partial hospitaliz ation [id number] Idalmis nicolas MD Main Office [address] [address] 07/06/2016 14:52:06 07/06/2016 15:43:01 Vitamin D deficiency 40635293 E55.9 take weekly med Bipolar I disorder 61247 6008 F31.9 is on meds, mood is stable, volunteeri ng which is good for her, just out of partial hospitaliz ation [id number] Idalmis nicolas MD Main Office [address] [address] 07/24/2016 14:52:50 07/24/2016 15:34:41 Adult health examination 488227769 Z00.00 is exercising a lot and feels well, disappoint ed no weight loss but feels better. Change in skin lesion 39 4593778 L98.9 left arm, we will make appt with DR Tobin Asthma 442358098 J45.90 9 asthma is controlled . continue meds Bipolar I disorder 25704 6008 F31.9 is on meds, mood is stable, volunteeri ng which is good for her, in therapy and doing a voluntary day program [id number] Idalmis nicolas MD Main Office [address] [address] [place] [address] 10/30/2016 09:38:36 10/30/2016 10:12:18 Needs influenza immunization 976236605 Z23 Hypothyroidism 00256119 E03.9 pt is on meds and takes them regularly, due for recheck of level Asthma 024428935 J45.90 9 asthma is controlled . continue meds Bipolar I disorder 02598 6008 F31.9 is taking meds regularly, med provider will be changing and pt is due for a level and she will call and get an order for a level and who her next med provider will be [id number] Idalmis nicolas MD Main Office [address] [address] [place] [address] 11/23/2016 12:49:42 11/23/2016 13:32:00 Dysfunctional uterine bleeding 85219771 N93.8 see hx, due for pap but will refer to [facility] due to DUB, may need treatment with provera, pt with depression should tell [facility] provider this, Backache 487443193 M54.9 use motrin as needed Asthma 413267973 J45.90 9 asthma is controlled . 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 Bipolar I disorder 49534 6008 F31.9 doing very well [id number] Idalmis nicolas MD Main Office [address] [address] [place] [address] 05/16/2017 10:22:08 05/16/2017 11:05:23 Hypothyroidism 67742214 E03.9 off meds for 2 weeks, restart and check level in 2 months Hyperhidrosis 709531088 R61 wrote down instructio ns for pt to take 3 days in a row, then change to 2 times a week and use regular deodorant too Asthma 179095585 J45.90 9 asthma is controlled . Bipolar I disorder 63531 6008 F31.9 doing very well [id number] ALEX Maya Main Office 3640 [facility] [address] [place] [address] 06/01/2017 15:02:22 06/01/2017 15:37:39 Hypothyroidism 41785563 E03.9 Last TSH 6.65, will increase levothyrox ine to 37.5mcg daily. new rx providd. she has lab orders and will have them checked in 4-6 weeks. Contusion of forearm 398 44159 S50.11XA small contusion, improving. Bipolar I disorder 37374 6008 F31.9 Recent partial hospitaliz ation x 2 weeks, discharged today, is feeling better and looking forward to her tiar[place] vacation starting on sunday. [id number] ALEX Maya Main Office [address] [place] [address] 07/27/2017 13:51:39 07/27/2017 14:17:38 Horse bite wound 838955450 W55.11XA Healing well, currently on clinda based on culture results. she is taking a probiotic, eating yogurt, instructed to eat 20 mins prior to abx. Call or return for any concerns or worsening. Open wound of abdominal wall 277666604 S31.100A [id number] Josee Casillas MD Main Office [address] [address] [place] [address] 12/04/2017 11:06:41 12/04/2017 11:40:34 Needs influenza immunization 141621026 Z23 [id number] Izaiah Prajapati MD Main Office [address]40 [facility] [address] [place] [address] 12/14/2017 15:10:05 12/14/2017 16:03:05 Seborrheic dermatitis of scalp 470885924 L21.0 Seborrheic dermatitis 50 680226 L21.9 Will cover initially for both fungal and bacterial etiologies with low potency steroid for inflammati on. Less likely psoriasis but if persistent /worse will need derm referral. Impetigo 93120002 L01.00 [id number] Idalmis nicolas MD Main Office [address]40 [facility] [address] [place] [address] 04/03/2018 13:53:17 04/03/2018 14:54:27 Asthma 710018455 J45.909 Refilled pro air to use prn Acute otitis media 88890 03 H66.92 Advise to use otc pain [...] any dizziness or chest discomfort . Eruption 976178713 R21 Does not appear to be shingles, infection or coxsackie virus at this time. Will use desonide bid (has this at home). Call if rash not improving. Likely contact dermatitis vs eczema. 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 Medication monitoring 39 6457113 Z51.81 needs EKG due to meds for bipolar Impacted c erumen of bilateral ears 0009817947 880865 H61.23 soak and lavage today . canals clear upon discharge Asthma 727473919 J45.90 9 asthma is controlled . 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 Encouraged less carbs and increased exercise. Labs are normal, will check fasting BS with next labs Hypothyroidism 46592666 E03.9 TSh trending up , now close to 10. Will gradually increase med alternatin g 1 with 1.5 of levothyrox ine daily. Check TSH 6 weeks Bipolar I disorder 34553 6008 F31.9 pt doing better continue meds listed and will call therapist if not doing well. Follows with current mental health providers. [id number] Izaiah Prajapati MD Main Office [address] [place] [address] 12/20/2018 14:53:53 12/20/2018 15:58:11 Lumbar radiculopathy 650516521 M54.16 start medrol today and PT alan next week, TC#3 sparingly for pain, supplement with otc meds. Pt aware no refills on pain med. Rest but change position and walk frequently . Stretching at home. Call or ED if acutely worse or any bowel/blad shona sx. Followup in a few weeks. [id number] Izaiah Prajapati MD Main Office [address]40 [facility] [address] [place] [address] 01/10/2019 13:55:04 01/10/2019 14:39:13 Low back pain 045534096 M54.5 Continue PT for another 4-6 weeks, continue home exercises Acute back pain with sciatica 813593692 M54.42 use mobic for a week then prn if still having pain. If not better in 4-6 weeks, consider imaging. [id number] Idalmis nicolas MD Main Office [address] [address] [place] [address] 01/24/2019 10:34:24 01/24/2019 10:53:58 [id number] Idalmis nicolas MD Main Office [address] [address] [place] [address] 08/04/2019 13:56:48 08/04/2019 15:29:46 Impacted cerumen 78244233 H61.23 removed today, right canal still red, distally has some ? soft wax 7-8 oclock, ? cholesteat german[place] will recheck in 2 weeks, no water in right ear. Call if any pain or changes in ear or hearing. [id number] Idalmis nicolas MD Main Office [address] [address] [place] [address] 08/18/2019 13:46:56 08/18/2019 14:21:42 Serous otitis media 38877245 H65.91 steam, flonase, keep hydrated, ENT if not better. Cannot take oral steroids, makes her manic. 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 but sees them, more positive than in the past Screening for malignant neoplasm of breast 268101358 Z12.39 pt to set up first mammogram Bipolar I disorder 59557 6008 F31.9 doing very well, will get orer from psychiatry for a lithium level Hypothyroidism 58867771 E03.9 get thyroid test Eczema 19740729 L30.9 eyebrows, ears tx as below Psoriasis of scalp 62201 8008 L40.9 Screening for malignant neoplasm of cervix 525916402 Z12.4 pt to make appt [id number] Idalmis nicolas MD [facility] [address] [facility] [address] [facility] [place] [address] 10/02/2019 06:24:57 10/06/2019 09:11:51 Hypothyroidism 12783148 E03.9 elevated TSH ordered by psych, will increase dose and recheck in 6 weeks. Bipolar I disorder 76607 6008 F31.9 doing well, labs by psychiatry , will talk with pharmacist how to take the thyroid and lithium levels so they do not interfere with each other Mild inter mittent asthma 492460746 J45.20 stable continue meds [id number] Idalmis nicolas MD [id number] [facility] [address] [facility] [place] [address] 10/16/2019 08:37:38 10/16/2019 11:49:29 Hypothyroidism 09659840 E03.9 thyroid dose was increased recently but now pt does not feel well. plan is to have pt recheck thyroid level today, she is taking it midday a few hours after lithium,sh e had asked the pharmacist for suggestion , so this is different than how she took it in the past Bipolar I disorder 46697 6008 F31.9 feels very emotional Not grounded . is working with therapist, no suicidal plans but has some thoughts, feels safe and promises she can keep herself safe, work with counselor [id number] Idalmis nicolas MD [address] [facility] [address] 11/28/2019 12:54:48 12/02/2019 10:41:25 Seborrheic dermatitis of scalp 527995113 L21.0 Use Tgel hampoo a few time a week and then put lotion on affected areas bid for a week, then use prn only, call if not helping and would do dermatolog y referral [id number] Idalmis nicolas MD Main Office [address] [facility] [address] [place] [address] 03/18/2020 15:02:30 03/18/2020 16:15:08 Eczema 29205855 L30.9 on MTX, improving, pt knows to take extra precaution s against Covid infectin Anxiety state 025341452 F41.1 on meds, sees counselor hard 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 [employer] which 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 Bipolar I disorder 77674 6008 F31.9 a bit of a struggle but doing ok, more resources, Mild inter mittent asthma 870478826 J45.20 stable continue meds Hypothyroidism 04961987 E03.9 continue meds [id number] Idalmis nicolas MD Main Office [address] [address] 07/14/2020 13:22:37 07/14/2020 13:57:55 Eczema 59034876 L30.9 on MTX, improving, pt knows to take extra precaution s against Covid infection Mild inter mittent asthma 454193131 J45.20 stable continue meds Hypothyroidism 64864545 E03.9 continue meds Macromastia 868412982 N6 2 pain in shoulders and upper back and rashes under breasts considerin g breast reduction, will refer to plastic surgeon Screening for malignant neoplasm of breast 986344929 Z12.39 pt to set up first mammogram Bipolar I disorder 99898 6008 F31.9 a bit of a struggle but doing ok, more resources, [id number] Reyes Fine MD Main Office 36[address] [facility] [address] [place] [address] 08/27/2020 10:24:55 08/27/2020 12:15:05 Impacted cerumen 22690011 H61.23 Cerumen removed in Right.Left sided aborted after removal of some wax in the exterior ear as it looked like patient caused trauma to her ear drum from q-tip use. Mild inter mittent asthma 872485719 J45.20 Notes under controll with inhalers, needed refills. Acute otitis media 80128 03 H66.92 After wax removal patient notes improvemen t in hearing denies vomiting, dizziness, or facial weakness, fever. Will provide ear drops advised injured ear drums can heal on its own thus will f/u in 2 weeks to reassess. Will refer to ent. Perforatio n of tympanic membrane 39797041 H72.92 [id number] Idalmis nicolas MD Main Office [address] [address] 12/22/2020 10:51:31 12/22/2020 11:39:16 Adult health examination 460102689 Z00.00 doing pretty well, keeping active, in counseling weekly and meds by psychiatry , anxiety due to upcoming skin lesion resection. 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 Hypothyroidism 03763335 E03.9 continue meds check labs Mild inter mittent asthma 079564624 J45.20 stable continue meds Needs infl uenza immunization 394176159 Z23 Lesion of skin of face 8143518781 [address] Tobin with malignancy getting removed 01/03 nervous [id number] Idalmis nicolas MD Main Office [address] [address] 12/01/2021 09:39:44 12/01/2021 10:21:17 Hypothyroidism 34021321 E03.9 check level and continue med Needs infl uenza immunization 525469430 Z23 Bipolar I disorder 64865 6008 F31.9 a bit of a struggle but doing ok, in counseling and sees psychiatry and 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 She had the visit with Dr Ny and contracts for safety, has crisis numbers, family and therapist support. Does not feel the need for ED evaluation . Dr Ny and patient comforatab le with the plan. Reschedule AWV later. [id number] Idalmis nicolas MD Main Office 3640 [facility] [address] [place] [address] 04/05/2022 14:54:10 04/05/2022 15:57:29 Adult health examination 115719963 Z00.00 Pt is in good general health with mental health stable and improved. 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 Social and family history reviewed. Immunizati ons reviewed, advised annual flu shot which she had. She is not up to date on dental and eye providers, will make appt. mammogram utd, [facility] Reviewed diet and exercise. Hypothyroidism 65508532 E03.9 recent tsh normal Mild inter mittent asthma 147288233 J45.20 renew med, uses prn Bipolar I disorder 76665 6008 F31.9 pt doing better continue meds listed and will call therapist if not doing well. Follows with current mental health providers. 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 0 pt gets meds for bipolar from Dr Porfirio Hearn in [facility] heartrate 107, EKG with NSR, normal QT interval. Hypothyroidism 10582483 E03.9 continue med [id number] JARVIS NGUYEN MD Main Office 36[address] [facility] [address] [place] [address] 06/16/2022 12:51:46 06/16/2022 13:43:42 Laceration of finger 408228089 S61.210A - pt had 8 sutures placed on right second digit after laceration with veggie cutter- 2 sutures were removed today as it was noted as the sutures were removed patient skin had not completely healed, will remove rest 12-14 day usman- RTC in 2 days Transition of care from emergency department to self-care 4892049440 91005 Z76.89 - presented to urgent care on 06/06 after laceration of right second and third digits [id number] JARVIS NGUYEN MD Main Office 60[address] [facility] [address] [place] [address] 06/19/2022 09:20:48 06/19/2022 10:05:55 Laceration of finger 298740934 S61.210D - pt had 8 sutures placed on right second digit after laceration with veggie cutter- 2 sutures were removed on 06/16- other 6 suture were removed today on 06/19- pt does have one small area were the laceration is still prominent therefore wound precaution s were given- RTC if patient note warm, tenderness , redness or discharge [id number] Idalmsi nicolas MD Main Office 1331 [facility] [address] [place] [address] 06/30/2022 15:53:21 06/30/2022 16:22:25 Injury of finger 63928885 S69.91XD see hpi and PE. 3rd finger cauterized in UC still with balck hard cover and 2nd healing after sutures. will refer to plastic surgery to address the 3rd finger, asked for appt early next week. 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- medication s filled by [facility] Bipolar I disorder 23918 6008 F31.9 - follows with psychiatry every 3 months, as a new provider started seeing one year ago- currently on quetiapine 800mg QD and lithium 600mg BID- medication s filled by [facility] Mild inter mittent asthma 993185929 J45.20 - pt takes albuterol pump has needed (will go months without using it)- take singular 10mg daily Injury of finger 7155308 8 S69.91XD - second digit all sutures removed, wound still has dried blood, healing very slow- third finger still black with very little improvemen t since 06/06- pt was referred to plastics> [facility] cannot see patient until after December, called to push date forward, request refused> currently looking for other plastic surgeons in the area- ED precaution s given- RTC in one month for continued follow-up Psoriasis 1462849 L40.9 - currently on humira injections which provides relief [id number] JARVIS NGUYEN MD Main Office [address] [facility] [place] [address] 07/14/2022 13:23:31 07/14/2022 14:05:46 Injury of finger 03353554 S69.91XD - improving- second digit all sutures removed, wound still has dried blood, healing very slow- third finger cautrized wound is healing, scabbing is regressing - pt was referred to plastics> [facility] cannot see patient until after December, [...] for healing.- wound care referral also provided [id number] JARVIS NGUYEN MD Main Office [address] [facility] [place] [address] 08/17/2022 11:20:11 08/17/2022 12:07:00 Injury of finger 06692692 S69.91XD - improving- second digit: at today visit noted that piece of skin that was originally sutured is no longer in place. The skin was removed. Well-heale d tissue noted underneath .- third finger which was cauterized is now healed- pt was referred to plastics> [facility] cannot see patient until after December, [...] to ensure second digit has fully healed [id number] Josee Casillas MD Main Office [address] [address] 08/29/2022 12:52:30 08/29/2022 13:46:55 Impacted cerumen of bilateral ears 0374394279 978369 H61.23 Acute righ t otitis media 247229893 H66.91 [id number] JARVIS NGUYEN MD Main Office [address] [address] 09/28/2022 14:37:07 09/28/2022 15:09:58 Injury of finger 53235424 S69.91XD - now resolved, second and third digit have completely healed- pt was referred to plastics> [facility] cannot see patient until after December, [...] 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 C) Vaccines:I nfluenza: not this yearTdAP: 06/06/2022Z felix: due at 89NXZ68: due at 19ACVG88: 02/15/2015 PCV20:PCV1 5:COVID: , 05/17/2020, 01/11/2021 , 12/07/2021 D) Routine blood work orderedE) Updated patient's history RTC in one year for annual exam or sooner if any acute complaints Fatigue 73871656 R53.83 Z00.00 Hyperlipidemia 69753915 E78.5 Z00.00 Hepatitis C screening 41 5665187 Z11.59 HIV screening 219710583 Z11.4 Anxiety state 466793520 F41.1 - NIA-7 score of 21- currently [...] filled by [facility] Bipolar I disorder 34273 600 F31.9 - PHQ-9 score score of [...] s given- RTC in 4 weeks Hypothyroidism 89530163 E03.9 - will check levels- c/w levothyrox ine 100mcg QD Mild inter mittent asthma 415553151 J45.20 - pt takes albuterol pump has needed (will go months without using it)- take singular 10mg daily Vitamin D deficiency 347 74337 E55.9 Irritable bowel syndrome with diarrhea 777673442 K58.0 - pt is currently taking dicyclomin e 10mg QID as needed Psoriasis 2239537 L40.9 - currently on humira injections which provides relief Tachycardia 7569851 R00. 0 - HR today was 120- EKG has a lot of artifact but sinus tachycardi a with HR of 109- pt was started on metoprolol succinate ER 25mg- most likely due to elevated anxiety Screening for malignant neoplasm of cervix 798548875 Z12.4 Body mass index 30+ - obesity 820233884 E66.9 Z68.31 - BMI of 31.5- Cut [...] minutes cumulative of moderate exercise erin ferro [id number] JARVIS NGUYEN MD Main Office [address] [facility] 207 [facility] [place] [address] 04/26/2023 14:37:13 04/26/2023 15:09:02 Hepatitis C antibody detected 851317862 Z86.19 - ordered hepatic function panel- ordered confirmato ry testing testing by checking viral load and genotype- if positive will send to GI Acute kidney injury 1466 9001 N17.9 - pt advised to remain hydrated- continue to avoid NSAIDs- repeat blood work ordered [id number] JARVIS NGUYEN MD Main Office 0110 [facility] 207 [facility] [place] [address] 05/17/2023 13:49:04 05/17/2023 14:29:35 Anxiety state 139568679 F41.1 - NIA-7 score of 17- currently on lorazepam 1mg BID given by [facility] which she follows every 3 months> pt advised not to take the medication with clonazepam 0.5mg- counsellin g provided, 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 0 - HR today was 109- EKG done on 04/12 has a lot of artifact but sinus tachycardi a with HR of 109- c/w metoprolol succinate ER 25mg- ordered US echo- pt referred to cardiology for holter monitor- [facility] will also be adjusting meds to help improve HR [id number] JARVIS NGUYEN MD Main Office [address] [facility] 207 [facility] [place] [address] 08/13/2023 14:37:29 08/13/2023 15:13:08 Tachycardia 5830496 R00.0 - now resolved- HR today was [...] will request note Vitamin D deficiency 347 75603 E55.9 - pt noted to have elevated level on 04/17/2023 -> 68- pt was advised to start back on 1000 IU to prevent levels from going too low> pt was advised this when informed of blood however she did not read message properly Psoriasis 2923127 L40.9 - currently on cyltezo injections which provides relief- pt does have an area at the back of left ear were the psoriasis is worse, pt provided with clobetasol cream and advised to moisturise [id number] JARIVS NGUYEN MD Main Office 3640 [facility] [address] 12/21/2023 15:15:32 12/21/2023 16:02:18 Acute kidney injury 17402459 N17.9 - pt advised to remain hydrated- continue to avoid NSAIDs- repeat blood work ordered Anxiety state 859678660 F41.1 - NIA-7 score of 8- lorazepam as been stopped and switched to clonazepam - counsellin g provided, 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- medication s filled by psychiatri Bipolar I disorder 35622 1373 F31.9 - improved- PHQ-9 score score of 6 with elevated NIA-7 score 8- pt has completed day-progra m at [place]> clonazepam 0.5mg as added to regimen- pt will be following with psychiatry over the next few month to optimize her meds as it could be the cause of the tachycardi a- currently on quetiapine 800mg QD and lithium 600mg BID- medication s filled by psychiatri Hypothyroidism 88950501 E03.9 - will check levels- c/w levothyrox ine 100mcg QD Mild inter mittent asthma 571953190 J45.20 - pt takes albuterol pump has needed (will go months without using it)- take singular 10mg daily Tachycardia 4561820 R00. 0 - now resolved- HR today [...] will request note Needs infl uenza immunization 156647780 Z23 19 YEARS AND OLDER ONLY Tremor 88765609 R25.1 - ordered vitamin b12 and folate- ordered MRI of the brain for further evaluation - pt psychiatri st started patient on propanolol ER 60mg Urinary incontinence 165 348575 R32 - pt has been following with urology, advised to given them a call for follow-up Numbness of hand 5500587 04 R20.0 - occurred after incident veggjose angel slicer- located on right hand on second and third digit- pt having neuropathi c pain and temperatur e sensitivit ies- referred to hand surgery for second option however feel that pain is from severed never endings and may permanent [id number] JARVIS NGUYEN MD Main Office 3640 [facility] [address] [place] [address] 01/01/2024 09:20:34 01/01/2024 09:55:35 Transition of care from emergency department to self-care 7436148770 83824 Z76.89 - presented to urgent care on 12/23 for cellulitis of lower extremity- reviewed notes Cellulitis 013430017 L03 .90 - well healing- no need for repeat antibiotic treatment at this time- wound culture grew Beta hemolytic Streptococ cus, group B which is susceptibl e to keflex- pt advised to keep area clean and dry- return precaution s were discussed [id number] JARVIS NGUYEN MD Main Office 36[address] [facility] 207 [facility] [place] [address] 03/24/2024 14:33:30 03/24/2024 15:06:31 Acute kidney injury 10854556 N17.9 - creatine 1.1 and GFR of 58- pt advised to remain hydrated- continue to avoid NSAIDs- repeat blood work ordered Hypothyroidism 72797004 E03.9 - normal levels- will check levels- c/w levothyrox ine 100mcg QD Tachycardia 3626500 R00. 0 - now resolved- HR today [...] control with metoprolol at the time Tremor 23924839 R25.1 - normal vitamin b12- MRI of [...] with her psychiatri st Urinary incontinence 165 204539 R32 - pt has been following with urology, advised to given them a call for follow-up Numbness of hand 7162750 04 R20.0 - occurred after incident veggie slicer- located on right hand on second and third digit- pt having neuropathi c pain and temperatur e sensitivit ies- pt is currently following with hand surgery [id number] Josee Casillas MD Main Office [address] [facility] [address] [facility] [place] [address] 04/15/2024 13:36:44 04/15/2024 14:47:23 Impacted cerumen of bilateral ears 8023640947 464559 H61.23 Bilateral cerumen impaction , recurrent. Recommend to avoid using q-tip. Ears were irrigated with large amount of cerumen removed , but still with residual amount left behind. Recom. to use Debrox for 3-5 days. Recom ear irrigation every 6-8 m. [id number] JARVIS NGUYEN MD Main Office [address] [facility] [address] [facility] [place] [address] 06/30/2024 13:04:23 06/30/2024 14:03:35 Acute kidney injury 61699771 N17.9 - creatine 1.1 and GFR of 58- pt advised to remain hydrated- continue to avoid NSAIDs- repeat blood work ordered Hypothyroidism 62033613 E03.9 - normal levels- c/w levothyrox ine 100mcg QD Tachycardia 1553240 R00. 0 - elevated- HR today was [...] control with metoprolol at the time Tremor 95333559 R25.1 - normal vitamin b12- MRI of the brain of brain is normal- pt psychiatri st started patient on propanolol , pt unsure if she is actually taking this Urinary incontinence 165 921402 R32 - pt has been following with urology, advised to given them a call for follow-up Numbness of hand 0473933 04 R20.0 - occurred after incident veggie slicer- located on right hand on second and third digit- pt having neuropathi c pain and temperatur e sensitivit ies- pt is currently following with hand surgery> will be starting physical therapy to help with sensation Bipolar I disorder 22183 4338 F31.9 - worsening- PHQ-9 score score of 16 with elevated NIA-7 score 14- currently undergoing day-progra m at [place]- will be switching off quetiapine to lithium- medication s filled by psychiatri - RTC in 3 weeks as patient should complete program by then and to check for improvemen t Irritable bowel syndrome with diarrhea 940858118 K58.0 - pt is currently taking dicyclomin e 10mg QID as needed Mild inter mittent asthma 215698285 J45.20 - pt takes albuterol pump has needed (will go months without using it)- take singular 10mg daily Hyperlipidemia 14348903 E78.5 Z00.00 - ASCVD score of 0.6%- [...] and veggies. General ex amination of patient 753964787 Z00.00 [id number] [facility] FemaleA) Patient was counseled on healthy diet, exercise and nutrition due to BMI of 30.5 B) ScreeningL ast Mammogram: start at age 50 stop at 74Date: 06/11/2024R esult: BIRADS-1Ne xt: 05/2025 Last Pap smear: start at age 21 to age 65Date: 12/27/2016 Results: HPV negative, no atypical cellsNext: DUE (pt advised to follow with [facility]) Last Colonoscop y: start at age 45-75Date: Result: Next: not yet of age Last DEXA scan:Date: due at 65Result: ??? C) Vaccines:I nfluenza: 12/21/2023 TdAP: 06/06/2022Z felix: due at 80ADD21: due at 46NXJO07: 02/15/2015 PCV20:PCV1 5:COVID: , 05/17/2020, 01/11/2021 , 12/07/2021 D) Routine blood work orderedE) Updated patient's history RTC in one year for annual exam or sooner if any acute complaints Screening for malignant neoplasm of cervix 231186611 Z12.4 Screening for malignant neoplasm of colon [id number] Z12.11 Obesity ca used by energy imbalance [id number] E66.811 E66.09 Z68.30 12442645 - BMI of 30.5- Cut down on [...] minutes cumulative of moderate exercise erin ferro [id number] JARIVS NGUYEN MD Main Office [address] [facility] [address] [place] [address] 07/22/2024 11:20:45 07/22/2024 11:48:16 Bipolar I disorder [id number] F31.9 - stable and improved- PHQ-9 score score of 11 with elevated NIA-7 score 8- completed day program at [place]- will be switching off quetiapine to lithium> pt currently unsure of her medication list- [facility] SI/HI [id number] Izaiah Prajapati MD Main Office [address] [facility] [address] [place] [address] 09/16/2024 08:55:29 09/16/2024 10:06:43 Chest discomfort 462276345 R07.89 080409 Anxiety state 547443299 F41.1 see above Sinus tachycardia 287203 01 R00.0 3924 44 year old female [...] intake. Pt was reassured. Bipolar I disorder 05150 6008 F31.9 continue current treatment as per psych [id number] JARVIS NGUYEN MD Main Office [address] [facility] [address] [place] [address] 10/08/2024 10:58:56 10/08/2024 11:27:08 [id number] JARVIS NGUYEN MD Main Office [address] [facility] [address] [place] [address] 10/16/2024 13:58:41 10/16/2024 14:45:04 Bipolar I disorder [id number] F31.9 - stable and improved- PHQ-9 score score of 2 with elevated NIA-7 score 10- completed day program at [place]- currently off quetiapine to lithium> pt currently unsure of her medication list- medication s [facility]- no longer having SI/HI Post-disch arge follow-up [id number] Z09 479566 - reviewed discharge summary Generalized headache 162 554660 R51.9 546625 - not having headaches, ordered for diagnosis to cover testing- abnormalit ies noted in urine test from recent discharge- now that patient is off lithium re-ordered testing for further evaluation - to consider imaging after testing complete Wax in ear canal 6322781 02 H61.20 74304 - bilateral- underwent irrigation Pruritus of vagina 86756 003 N89.8 033329 - located in the peritoneum - ordered patient clotrimazo le-betamet hasone cream- she will follow with gynecology soon [id number] JARVIS NGUYEN MD Main Office [address] [facility] [address] [place] [address] 11/21/2024 14:42:11 11/21/2024 15:06:25 Bipolar I disorder 064657631 F31.9 - stable and improved- completed day program at [place]- currently off quetiapine to lithium> pt currently unsure of her medication list- medication s [facility]- no longer having SI/HI Pruritus of vagina 27363 003 N89.8 472270 - located in the peritoneum - ordered patient clotrimazo le-betamet hasone cream- she will follow with gynecology soon Generalized headache 162 893927 R51.9 927651 - not having headaches, ordered for diagnosis to cover testing- abnormalit ies noted in urine test from recent discharge- now that patient is off lithium re-ordered testing for further evaluation - to consider imaging after testing complete Tachycardia 6591997 R00. 0 - elevated- HR today was [...] control with metoprolol at the time Hypothyroidism 29101644 E03.9 - normal levels- c/w levothyrox ine 100mcg QD Mild inter mittent asthma 505606873 J45.20 - pt takes albuterol pump has needed (will go months without using it)> does use for URI therefore refilled since patient is currently sick- take singular 10mg daily Irritable bowel syndrome with diarrhea 883335053 K58.0 - pt is currently taking dicyclomin e 10mg QID as needed Tinea corporis 58116676 B35.4 28559 - located on the left underarm Psoriasis 5933404 L40.9 - currently on cyltezo injections which provides relief- pt does have an area at the back of left ear were the psoriasis is worse, pt provided with clobetasol cream and advised to moisturise - provided with clobetasol to apply to areas were she has a rash- does follow with derm, next gladys 12/11/2024 Seborrheic dermatitis 50 295317 L21.9 53532 - located on the forehead- started patient on ketoconazo le shampoo [id number] Izaiah Prajapati MD Telehealt h [address] [facility] [address] [facility] [place] [address] 01/12/2025 14:49:03 01/12/2025 16:09:31 Cellulitis of head 084417537 H60.12 55093920 Infected psoriatic plaque behind the L. ear. Recom oral antibiotic s and mupirocin cream. Pt is starting new psoriasis treatment per Dr. Quintana. Psoriasis 9214748 L40.9 17184 see above. Health Concerns Section Related Observation LastModified by Organization Detai ls LastModified Time None Recorded Concern Status LastModified by Organization Details LastModified Time None Recorded Advance Directives Directive N: Payers Insurance Date Sequence Insurance Name Policy Number Policy Scott Covered Member ID Scott Member ID Guarantor Name 01/12/2025 1 [place] [employer] Crystal Chapa [id number] Crystal Chapa 01/12/2025 2 [place] [facility] Crystal Chapa [id number] Crystal Chapa Notes Date Note Type Note [...] since July gladys. Estrellita Pitt PA-C [address] [address], [place], [address] [facility] [place]16[place] 13:07:46 5 text/html Hospitalization Contact RecordReported by PatientHospitalization Contact RecordFor follow up, [facility] date: (please enter in format 'mm/dd/yyyy') (09/28/2024),date [...] to [facility] completed a 10 day program discharge to [...] 10/16/2024 at 2:15 pm. JARVIS NGUYEN MD [address], [address] [facility] [place]/08/2024 11:27:05 5 text/html Hospitalization Contact RecordReported by PatientHospitalization Contact RecordFor follow up, [facility],admit date: (please enter in format 'mm/dd/yyyy') (09/28/2024),date [...] to [facility] completed a 10 day program discharge to [...] appoitment with gynecology. JARVIS NGUYEN MD [address] [address], [place], [address], [facility] [place] 10/16/2024 14:40:09 5 text/html ROS as [...] also completed day program. JARVIS NGUYEN MD [address], [address], [facility] [place] 11/21/2024 17:20:30 5 text/html ROS as [...] erythema or discharge. Estrellita Pitt PA-C [address] [address], [place], [address], [facility] [place] 01/12/2025 15:26:22 OBGyn Episode No OBEpisode recorded.
--- OUTSIDE RECORDS SUMMARY | 2025-01-26 22:21 | XMS_ITS | Clinical Summary ---
Author Organization [facility] Prior to 07/19/[address] [place] [address] Care Team Providers Care Court Worker Name Role Phone Unavailable Primary Care Provider Unavailabl e Social History Tobacco Use Types Packs/Day Years Used Date Smoking Tobacco: Never Assessed Sex and Gender Information Value Date Recorded Sex Assigned at Not on file Gender Identity Not on file Sexual Orientation Not on file Plan of Treatment Not on file
== END ==
LOC: HO.CARD 13:34
PROVIDERS: PCP Student in an Organized Health Care Education/Training Program; Visit Provider Psychiatry & Neurology Psychiatry
DX: F39 Unspecified mood [affective] disorder (principal)
CPT/HCPCS: 93005

== ENCOUNTER → 2025-01-26 13:38 | Outpatient (BNV) | payer MEDICARE, MEDICAID, SELFPAY | PROVIDERS: PCP Student in an Organized Health Care Education/Training Program; Visit Provider Internal Medicine Cardiovascular Disease | DX: Z13.6 Encounter for screening for cardiovascular disorders (principal) | CPT/HCPCS: 93010 ==